=== PATIENT | male | born 1940 ===

== ENCOUNTER → 2020-01-03 13:02 | Outpatient (BNVA) | payer MEDICARE, MEDICAID, SELFPAY | PROVIDERS: PCP Internal Medicine; Referring Provider Internal Medicine; Visit Provider Family Medicine Adult Medicine | DX: M47.816 Spondylosis without myelopathy or radiculopathy, lumbar region (principal); Z87.81 Personal history of (healed) traumatic fracture; Z79.891 Long term (current) use of opiate analgesic; I82.503 Chronic embolism and thrombosis of unspecified deep veins of lower extremity, bilateral; Z51.81 Encounter for therapeutic drug level monitoring; Z79.01 Long term (current) use of anticoagulants | CPT/HCPCS: 85610; 99211; 99212 ==

== ENCOUNTER → 2020-01-31 13:04 | Outpatient (BNVA) | payer MEDICARE, MEDICAID, SELFPAY | PROVIDERS: PCP Internal Medicine; Referring Provider Internal Medicine; Visit Provider Internal Medicine | DX: I82.503 Chronic embolism and thrombosis of unspecified deep veins of lower extremity, bilateral (principal); Z51.81 Encounter for therapeutic drug level monitoring; Z79.01 Long term (current) use of anticoagulants | CPT/HCPCS: 85610; 99211 ==

== ENCOUNTER → 2020-02-21 10:29 | Outpatient (BNVA) | payer MEDICARE, MEDICAID, SELFPAY | PROVIDERS: PCP Internal Medicine; Visit Provider Internal Medicine | DX: J44.9 Chronic obstructive pulmonary disease, unspecified (principal) | CPT/HCPCS: 99212 ==

== ENCOUNTER → 2020-02-28 12:52 | Outpatient (BNVA) | payer MEDICARE, MEDICAID, SELFPAY | PROVIDERS: PCP Internal Medicine; Visit Provider Family Medicine Adult Medicine | DX: M47.816 Spondylosis without myelopathy or radiculopathy, lumbar region (principal); Z79.891 Long term (current) use of opiate analgesic; I82.503 Chronic embolism and thrombosis of unspecified deep veins of lower extremity, bilateral; Z51.81 Encounter for therapeutic drug level monitoring; Z79.01 Long term (current) use of anticoagulants | CPT/HCPCS: 85610; 99211; 99212 ==

== ENCOUNTER → 2020-03-26 08:38 | Outpatient (BNVA) | payer MEDICARE, MEDICAID, SELFPAY | PROVIDERS: PCP Internal Medicine; Visit Provider Nurse Practitioner Gerontology | DX: Z76.89 Persons encountering health services in other specified circumstances (principal) | CPT/HCPCS: Q3014 ==

== ENCOUNTER 2020-03-27 10:37 | Outpatient (REF) | payer MEDICARE, MEDICAID, SELFPAY ==
[2020-03-27 11:36] LABS: Estimated Average Glucose 123 mg/dL; Hemoglobin A1c % 5.9 %
[2020-03-27 12:17] LABS: Alanine Aminotransferase 12 U/L (0-40); Albumin Level 4.6 g/dL (3.5-5.0); Alkaline Phosphatase 67 U/L (39-117); Anion Gap 13 (12-20); Aspartate Amino Transferase 14 U/L (5-37); Bilirubin Total 0.7 mg/dL (0.0-1.0); Blood Urea Nitrogen 18 mg/dL (9-16); Calcium 9.6 mg/dL (8.4-10.2); Carbon Dioxide 28 mmol/L (22-29); Chloride 104 mmol/L (96-108); Cholesterol 147 mg/dL; Estimated Glomerular Filt Rate > 60; Glucose Fasting 104 mg/dL (60-99); HDL Cholesterol 64 mg/dL; LDL Cholesterol Calculated 70 mg/dl; Potassium 4.9 mmol/l (3.3-5.1); Sodium 140 mmol/L (135-145); Triglycerides 66 mg/dL
[2020-03-27 12:26] LABS: Creatinine Urine 101.85 mg/dL; Microalbum/Creatinine Ratio Ur 40.2 ug/mg cr
== END 2020-03-27 10:38 | disposition home or self-care (01) ==
LOC: HO.LAB 10:37
PROVIDERS: PCP Internal Medicine; Visit Provider Nurse Practitioner Gerontology
DX: Z79.01 Long term (current) use of anticoagulants (principal)
CPT/HCPCS: 36415; 80053; 80061; 82043; 83036; 85610; 99211

== ENCOUNTER → 2020-04-17 13:00 | Outpatient (BNVA) | payer MEDICARE, MEDICAID, SELFPAY | PROVIDERS: PCP Internal Medicine; Visit Provider Internal Medicine | DX: I82.503 Chronic embolism and thrombosis of unspecified deep veins of lower extremity, bilateral (principal); Z51.81 Encounter for therapeutic drug level monitoring; Z79.01 Long term (current) use of anticoagulants | CPT/HCPCS: 85610; 99211 ==

== ENCOUNTER → 2020-04-19 14:19 | Outpatient (BNVA) | payer MEDICARE, MEDICAID, SELFPAY | PROVIDERS: PCP Internal Medicine; Visit Provider Family Medicine Adult Medicine | DX: M47.816 Spondylosis without myelopathy or radiculopathy, lumbar region (principal) | CPT/HCPCS: 99212 ==

== ENCOUNTER 2020-05-11 13:50 | Outpatient (REF) | payer MEDICARE, MEDICAID, SELFPAY | END 2020-05-11 13:51 | disposition home or self-care (01) | LOC: HO.LAB 13:50 | PROVIDERS: Visit Provider Internal Medicine | DX: Z20.822 Contact with and (suspected) exposure to COVID-19 (principal) | CPT/HCPCS: 36415; C9803; U0003; U0005 ==

== ENCOUNTER → 2020-05-15 13:02 | Outpatient (BNVA) | payer MEDICARE, MEDICAID, SELFPAY | PROVIDERS: PCP Internal Medicine; Visit Provider Internal Medicine | DX: I82.503 Chronic embolism and thrombosis of unspecified deep veins of lower extremity, bilateral (principal); Z51.81 Encounter for therapeutic drug level monitoring; Z79.01 Long term (current) use of anticoagulants | CPT/HCPCS: 85610; 99211 ==

== ENCOUNTER → 2020-05-17 14:56 | Outpatient (BNVA) | payer MEDICARE, MEDICAID, SELFPAY | PROVIDERS: PCP Internal Medicine; Visit Provider Family Medicine Adult Medicine | DX: M47.816 Spondylosis without myelopathy or radiculopathy, lumbar region (principal); Z79.899 Other long term (current) drug therapy | CPT/HCPCS: 99212 ==

== ENCOUNTER → 2020-06-05 13:10 | Outpatient (BNVA) | payer MEDICARE, MEDICAID, SELFPAY | PROVIDERS: PCP Internal Medicine; Visit Provider Internal Medicine | DX: I82.503 Chronic embolism and thrombosis of unspecified deep veins of lower extremity, bilateral (principal); Z51.81 Encounter for therapeutic drug level monitoring; Z79.01 Long term (current) use of anticoagulants | CPT/HCPCS: 85610; 99211 ==

== ENCOUNTER → 2020-06-14 15:42 | Outpatient (BNVA) | payer MEDICARE, SELFPAY | PROVIDERS: PCP Internal Medicine; Visit Provider Family Medicine Adult Medicine | DX: M47.816 Spondylosis without myelopathy or radiculopathy, lumbar region (principal) | CPT/HCPCS: 99212 ==

== ENCOUNTER 2020-06-15 09:21 | Outpatient (REF) | payer MEDICARE, SELFPAY ==
[2020-06-15 10:36] LABS: Alanine Aminotransferase 13 U/L (0-40); Aspartate Amino Transferase 17 U/L (5-37); Cholesterol 117 mg/dL; HDL Cholesterol 56 mg/dL; LDL Cholesterol Calculated 52 mg/dl; Triglycerides 47 mg/dL
== END 2020-06-15 09:22 | disposition home or self-care (01) ==
LOC: HO.LAB 09:21
PROVIDERS: Absent Provider Internal Medicine; PCP Internal Medicine; Visit Provider Internal Medicine Cardiovascular Disease
DX: I73.9 Peripheral vascular disease, unspecified (principal)
CPT/HCPCS: 36415; 80061; 84450; 84460

== ENCOUNTER → 2020-07-03 13:22 | Outpatient (BNVA) | payer MEDICARE, SELFPAY | PROVIDERS: PCP Internal Medicine; Visit Provider Internal Medicine | DX: I82.503 Chronic embolism and thrombosis of unspecified deep veins of lower extremity, bilateral (principal); Z51.81 Encounter for therapeutic drug level monitoring; Z79.01 Long term (current) use of anticoagulants | CPT/HCPCS: 85610; 99211 ==

== ENCOUNTER 2020-07-12 11:09 | Outpatient (REF) | payer MEDICARE, MEDICAID, SELFPAY ==
--- NOTE | ~2020-07-12 | XR_ITS ---
EXAMINATION: XR CHEST CLINICAL INFORMATION: Pneumonia. COMPARISON: Chest 06/22/2019 TECHNIQUE: 2 views of the chest were obtained. FINDINGS: The lungs are well-inflated without any acute consolidation. There is minimal prominence of interstitial pattern in both lung bases likely scarring or atelectasis. Previously visualized peripheral airspace consolidations have improved. The heart size and vascularity is normal. There is mild spondylosis dorsal spine. No lytic process seen. XR/XR chest 2V IMPRESSION: Improved bilateral peripheral airspace opacities from 06/22/2019. No new findings. Likely minimal scarring or atelectasis in lung bases.
== END 2020-07-12 11:10 | disposition home or self-care (01) ==
LOC: HO.XRAY 11:09
PROVIDERS: PCP Internal Medicine; Visit Provider Internal Medicine
DX: J18.9 Pneumonia, unspecified organism (principal); E11.65 Type 2 diabetes mellitus with hyperglycemia; E78.00 Pure hypercholesterolemia, unspecified
CPT/HCPCS: 71046; Q3014

== ENCOUNTER → 2020-07-16 11:42 | Outpatient (BNVA) | payer MEDICARE, SELFPAY | PROVIDERS: PCP Internal Medicine; Visit Provider Internal Medicine | DX: I82.503 Chronic embolism and thrombosis of unspecified deep veins of lower extremity, bilateral (principal); Z51.81 Encounter for therapeutic drug level monitoring; Z79.01 Long term (current) use of anticoagulants | CPT/HCPCS: 85610; 99211 ==

== ENCOUNTER → 2020-07-17 14:40 | Outpatient (BNVA) | payer MEDICARE, SELFPAY | PROVIDERS: PCP Internal Medicine; Visit Provider Family Medicine Adult Medicine | DX: M47.816 Spondylosis without myelopathy or radiculopathy, lumbar region (principal) | CPT/HCPCS: Q3014 ==

== ENCOUNTER → 2020-07-30 13:05 | Outpatient (BNVA) | payer MEDICARE, SELFPAY | PROVIDERS: PCP Internal Medicine; Visit Provider Internal Medicine | DX: I82.503 Chronic embolism and thrombosis of unspecified deep veins of lower extremity, bilateral (principal); Z51.81 Encounter for therapeutic drug level monitoring; Z79.01 Long term (current) use of anticoagulants | CPT/HCPCS: 85610; 99211 ==

== ENCOUNTER → 2020-08-20 13:19 | Outpatient (BNVA) | payer MEDICARE, SELFPAY | PROVIDERS: PCP Internal Medicine; Visit Provider Internal Medicine | DX: I82.503 Chronic embolism and thrombosis of unspecified deep veins of lower extremity, bilateral (principal); Z51.81 Encounter for therapeutic drug level monitoring; Z79.01 Long term (current) use of anticoagulants | CPT/HCPCS: 85610; 99211 ==

== ENCOUNTER → 2020-08-27 14:06 | Outpatient (BNVA) | payer MEDICARE, SELFPAY | PROVIDERS: PCP Internal Medicine; Visit Provider Internal Medicine | DX: I82.503 Chronic embolism and thrombosis of unspecified deep veins of lower extremity, bilateral (principal); Z51.81 Encounter for therapeutic drug level monitoring; Z79.01 Long term (current) use of anticoagulants | CPT/HCPCS: 85610; 99211 ==

== ENCOUNTER → 2020-08-28 13:24 | Outpatient (BNVA) | payer MEDICARE, SELFPAY | PROVIDERS: PCP Internal Medicine; Visit Provider Family Medicine Adult Medicine | DX: M47.816 Spondylosis without myelopathy or radiculopathy, lumbar region (principal); I73.9 Peripheral vascular disease, unspecified | CPT/HCPCS: 99212 ==

== ENCOUNTER → 2020-09-11 13:33 | Outpatient (BNVA) | payer MEDICARE, SELFPAY | PROVIDERS: PCP Internal Medicine; Visit Provider Internal Medicine | DX: I82.503 Chronic embolism and thrombosis of unspecified deep veins of lower extremity, bilateral (principal); Z51.81 Encounter for therapeutic drug level monitoring; Z79.01 Long term (current) use of anticoagulants | CPT/HCPCS: 85610; 99211 ==

== ENCOUNTER → 2020-09-24 10:21 | Outpatient (BNVA) | payer MEDICARE, MEDICAID, SELFPAY | PROVIDERS: PCP Internal Medicine; Visit Provider Nurse Practitioner Gerontology | DX: E11.21 Type 2 diabetes mellitus with diabetic nephropathy (principal); E11.42 Type 2 diabetes mellitus with diabetic polyneuropathy; E78.5 Hyperlipidemia, unspecified; I10 Essential (primary) hypertension | CPT/HCPCS: 82947; 99212 ==

== ENCOUNTER → 2020-09-24 11:41 | Outpatient (BNV) | payer MEDICARE, MEDICAID, SELFPAY | PROVIDERS: PCP Internal Medicine; Visit Provider Internal Medicine Medical Oncology | DX: Z85.028 Personal history of other malignant neoplasm of stomach (principal); Z86.718 Personal history of other venous thrombosis and embolism; Z79.01 Long term (current) use of anticoagulants | CPT/HCPCS: 99213; 99214 ==

== ENCOUNTER → 2020-09-26 15:14 | Outpatient (BNVA) | payer MEDICARE, MEDICAID, SELFPAY | PROVIDERS: PCP Internal Medicine; Visit Provider Internal Medicine | DX: J43.9 Emphysema, unspecified (principal) | CPT/HCPCS: 99212 ==

== ENCOUNTER 2020-09-27 10:30 | Outpatient (REF) | payer MEDICARE, MEDICAID, SELFPAY | END 2020-09-27 10:31 | disposition home or self-care (01) | LOC: HO.LAB 10:30 | PROVIDERS: PCP Internal Medicine; Visit Provider Family Medicine Adult Medicine | DX: G89.4 Chronic pain syndrome (principal); M47.816 Spondylosis without myelopathy or radiculopathy, lumbar region; I73.9 Peripheral vascular disease, unspecified; I82.409 Acute embolism and thrombosis of unspecified deep veins of unspecified lower extremity; E11.65 Type 2 diabetes mellitus with hyperglycemia; E11.42 Type 2 diabetes mellitus with diabetic polyneuropathy; E11.21 Type 2 diabetes mellitus with diabetic nephropathy; Z89.422 Acquired absence of other left toe(s); Z90.3 Acquired absence of stomach [part of]; Z79.01 Long term (current) use of anticoagulants; Z79.84 Long term (current) use of oral hypoglycemic drugs; Z79.899 Other long term (current) drug therapy | CPT/HCPCS: 99212 ==

== ENCOUNTER → 2020-10-02 13:13 | Outpatient (BNVA) | payer MEDICARE, MEDICAID, SELFPAY | PROVIDERS: PCP Internal Medicine; Visit Provider Internal Medicine | DX: I82.503 Chronic embolism and thrombosis of unspecified deep veins of lower extremity, bilateral (principal); Z51.81 Encounter for therapeutic drug level monitoring; Z79.01 Long term (current) use of anticoagulants | CPT/HCPCS: 85610; 99211 ==

== ENCOUNTER → 2020-10-09 13:40 | Outpatient (BNVA) | payer MEDICARE, MEDICAID, SELFPAY | PROVIDERS: PCP Internal Medicine; Visit Provider Internal Medicine | DX: I82.503 Chronic embolism and thrombosis of unspecified deep veins of lower extremity, bilateral (principal); Z51.81 Encounter for therapeutic drug level monitoring; Z79.01 Long term (current) use of anticoagulants | CPT/HCPCS: 85610; 99211 ==

== ENCOUNTER → 2020-10-12 14:19 | Outpatient (BNVA) | payer MEDICARE, MEDICAID, SELFPAY | PROVIDERS: PCP Internal Medicine; Visit Provider Internal Medicine | DX: I82.503 Chronic embolism and thrombosis of unspecified deep veins of lower extremity, bilateral (principal); Z51.81 Encounter for therapeutic drug level monitoring; Z79.01 Long term (current) use of anticoagulants | CPT/HCPCS: 85610; 99211 ==

== ENCOUNTER → 2020-10-18 13:58 | Outpatient (BNVA) | payer MEDICARE, MEDICAID, SELFPAY | PROVIDERS: PCP Internal Medicine; Visit Provider Family Medicine Adult Medicine | DX: M47.816 Spondylosis without myelopathy or radiculopathy, lumbar region (principal); I73.9 Peripheral vascular disease, unspecified | CPT/HCPCS: 99212 ==

== ENCOUNTER → 2020-10-26 13:07 | Outpatient (BNVA) | payer MEDICARE, MEDICAID, SELFPAY | PROVIDERS: PCP Internal Medicine; Visit Provider Internal Medicine | DX: I82.503 Chronic embolism and thrombosis of unspecified deep veins of lower extremity, bilateral (principal); Z51.81 Encounter for therapeutic drug level monitoring; Z79.01 Long term (current) use of anticoagulants | CPT/HCPCS: 85610; 99211 ==

== ENCOUNTER → 2020-11-15 13:20 | Outpatient (BNVA) | payer MEDICARE, MEDICAID, SELFPAY | PROVIDERS: PCP Internal Medicine; Visit Provider Internal Medicine | DX: I82.503 Chronic embolism and thrombosis of unspecified deep veins of lower extremity, bilateral (principal); M47.816 Spondylosis without myelopathy or radiculopathy, lumbar region; I73.9 Peripheral vascular disease, unspecified; Z79.899 Other long term (current) drug therapy; Z51.81 Encounter for therapeutic drug level monitoring; Z79.01 Long term (current) use of anticoagulants | CPT/HCPCS: 85610; 99211; 99212 ==

== ENCOUNTER → 2020-12-13 13:45 | Outpatient (BNVA) | payer MEDICARE, MEDICAID, SELFPAY | PROVIDERS: PCP Internal Medicine; Visit Provider Internal Medicine | DX: I82.509 Chronic embolism and thrombosis of unspecified deep veins of unspecified lower extremity (principal); M47.816 Spondylosis without myelopathy or radiculopathy, lumbar region; I73.9 Peripheral vascular disease, unspecified; Z79.891 Long term (current) use of opiate analgesic; Z87.891 Personal history of nicotine dependence; Z51.81 Encounter for therapeutic drug level monitoring; Z79.01 Long term (current) use of anticoagulants | CPT/HCPCS: 85610; 99211; Q3014 ==

== ENCOUNTER → 2021-01-08 13:14 | Outpatient (BNVA) | payer MEDICARE, MEDICAID, SELFPAY | PROVIDERS: PCP Internal Medicine; Visit Provider Family Medicine Adult Medicine | DX: Z51.81 Encounter for therapeutic drug level monitoring (principal); M47.816 Spondylosis without myelopathy or radiculopathy, lumbar region; I73.9 Peripheral vascular disease, unspecified | CPT/HCPCS: 99212 ==

== ENCOUNTER → 2021-01-10 13:03 | Outpatient (BNVA) | payer MEDICARE, MEDICAID, SELFPAY | PROVIDERS: PCP Internal Medicine; Visit Provider Internal Medicine | DX: I82.503 Chronic embolism and thrombosis of unspecified deep veins of lower extremity, bilateral (principal); Z51.81 Encounter for therapeutic drug level monitoring; Z79.01 Long term (current) use of anticoagulants | CPT/HCPCS: 85610; 99211 ==

== ENCOUNTER 2021-01-21 06:20 | Outpatient (REF) | payer MEDICARE, MEDICAID, SELFPAY ==
[2021-01-21 06:27] LABS: MANUAL DIFF FLAG NO
[2021-01-21 07:31] LABS: Estimated Average Glucose 120 mg/dL; Hemoglobin A1c % 5.8 %
[2021-01-21 07:35] LABS: Basophils Percent Auto 0.3 % (0-2); Eosinophils Absolute Auto 0.5 X10*3/uL (0.0-0.4); Eosinophils Percent Auto 6.8 % (0-4); Hemoglobin 10.9 g/dl (14.0-18.0); Imm Gran Abs Auto 0.01 X10*3/uL (0.00-0.03); Imm Gran Pct Auto 0.1 % (0.0-0.4); Immature Retic Fraction 8.7 % (2.3-13.4); Lymphocytes Absolute Auto 1.7 X10*3/uL (1.2-4.9); Lymphocytes Percent Auto 23.9 % (20-40); Mean Corpuscular HGB Conc 31.1 g/dl (31.0-36.0); Mean Corpuscular Hemoglobin 28.5 pg (27.0-33.0); Mean Corpuscular Volume 91.6 fL (80.0-98.0); Mean Platelet Volume 10.8 fL (9.4-12.4); Monocytes Absolute Auto 0.6 X10*3/uL (0.1-1.2); Monocytes Percent Auto 9.2 % (2-11); Neutrophils Absolute Auto 4.2 x10*3/uL (2.0-8.3); Neutrophils Percent Auto 59.7 % (45-73); Platelet Count 216 X10*3/uL (160-400); Red Blood Count 3.82 X10*6/uL (4.60-5.80); Red Cell Distribution Width 14.6 % (11.0-16.0); Retic HGB Equivalent 30.3 pg (30.0-35.0); Reticulocyte Percent 0.8 % (0.5-1.8); Reticulocytes Absolute 0.029 X10*6/uL (0.026-0.095)
[2021-01-21 08:01] LABS: Alanine Aminotransferase 13 U/L (0-40); Albumin Level 3.9 g/dL (3.5-5.0); Alkaline Phosphatase 73 U/L (39-117); Anion Gap 11 (12-20); Aspartate Amino Transferase 18 U/L (5-37); Bilirubin Total 0.4 mg/dL (0.0-1.0); Blood Urea Nitrogen 13 mg/dL (9-16); Calcium 8.9 mg/dL (8.4-10.2); Carbon Dioxide 27 mmol/L (22-29); Chloride 107 mmol/L (96-108); Cholesterol 103 mg/dL; Estimated Glomerular Filt Rate > 60; Glucose Random 100 mg/dL (60-115); HDL Cholesterol 44 mg/dL; Iron 48 mcg/dL (45-160); LDL Cholesterol Calculated 50 mg/dl; Percent Iron Saturation 27 % (15-50); Potassium 4.9 mmol/L (3.3-5.1); Sodium 140 mmol/L (135-145); Total Iron Binding Capacity 178 mcg/dL (228-428); Total Protein 6.2 g/dL (6.5-8.0); Triglycerides 49 mg/dL; Unsaturated Iron Binding 130 ug/dL
[2021-01-21 08:02] LABS: B Type Natriuretic Peptide 88 pg/mL (<100)
[2021-01-21 08:23] LABS: Ferritin 450 ng/mL (20-250); Free T4 (Free Thyroxine) 0.92 ng/dL (0.71-1.85); Thyroid Stimulating Hormone 1.74 uIU/mL (0.32-4.0)
[2021-01-21 10:24] LABS: Folate 17.7 ng/mL (> or = 4.0); Vitamin B12 792 pg/mL (200-900)
== END 2021-01-21 06:21 | disposition home or self-care (01) ==
LOC: HO.LAB 06:20
PROVIDERS: PCP Internal Medicine; Visit Provider Internal Medicine
DX: E11.65 Type 2 diabetes mellitus with hyperglycemia (principal); E78.00 Pure hypercholesterolemia, unspecified; D64.9 Anemia, unspecified
CPT/HCPCS: 36415; 80053; 80061; 82607; 82728; 82746; 83036; 83540; 83880; 84439; 84443; 85025; 85045

== ENCOUNTER 2021-02-05 09:28 | Outpatient (REF) | payer MEDICARE, MEDICAID, SELFPAY ==
[2021-02-05 12:13] LABS: Immature Retic Fraction 8.3 % (2.3-13.4); Retic HGB Equivalent 31.3 pg (30.0-35.0); Reticulocyte Percent 0.9 % (0.5-1.8); Reticulocytes Absolute 0.037 X10*6/uL (0.026-0.095)
[2021-02-05 12:40] LABS: Alanine Aminotransferase 13 U/L (0-40); Albumin Level 4.3 g/dL (3.5-5.0); Alkaline Phosphatase 84 U/L (39-117); Anion Gap 11 (12-20); Aspartate Amino Transferase 15 U/L (5-37); Bilirubin Total 0.6 mg/dL (0.0-1.0); Blood Urea Nitrogen 13 mg/dL (9-16); Calcium 9.7 mg/dL (8.4-10.2); Carbon Dioxide 26 mmol/L (22-29); Chloride 108 mmol/L (96-108); Estimated Glomerular Filt Rate > 60; Glucose Random 122 mg/dL (60-115); Potassium 4.9 mmol/L (3.3-5.1); Sodium 140 mmol/L (135-145); Total Protein 6.8 g/dL (6.5-8.0)
[2021-02-05 12:41] LABS: Iron 74 mcg/dL (45-160); Percent Iron Saturation 35 % (15-50); Total Iron Binding Capacity 214 mcg/dL (228-428); Unsaturated Iron Binding 140 ug/dL
[2021-02-05 13:12] LABS: Ferritin 416 ng/mL (20-250)
[2021-02-05 13:14] LABS: Folate 19.6 ng/mL (> or = 4.0); Vitamin B12 777 pg/mL (200-900)
== END 2021-02-05 09:29 | disposition home or self-care (01) ==
LOC: HO.LAB 09:28
PROVIDERS: PCP Internal Medicine; Visit Provider Internal Medicine Cardiovascular Disease
DX: E11.65 Type 2 diabetes mellitus with hyperglycemia (principal); D64.9 Anemia, unspecified; I10 Essential (primary) hypertension
CPT/HCPCS: 36415; 80053; 82607; 82728; 82746; 83540; 85045

== ENCOUNTER → 2021-02-07 14:40 | Outpatient (BNVA) | payer MEDICARE, MEDICAID, SELFPAY | PROVIDERS: PCP Internal Medicine; Visit Provider Internal Medicine | DX: M47.816 Spondylosis without myelopathy or radiculopathy, lumbar region (principal); I82.503 Chronic embolism and thrombosis of unspecified deep veins of lower extremity, bilateral; I73.9 Peripheral vascular disease, unspecified; Z79.891 Long term (current) use of opiate analgesic; Z51.81 Encounter for therapeutic drug level monitoring; Z79.01 Long term (current) use of anticoagulants | CPT/HCPCS: 85610; 99211; 99212 ==

== ENCOUNTER → 2021-03-07 09:47 | Outpatient (BNVA) | payer MEDICAID, MEDICARE, SELFPAY | PROVIDERS: PCP Internal Medicine; Visit Provider Anesthesiology ==

== ENCOUNTER → 2021-03-14 13:12 | Outpatient (BNVA) | payer MEDICARE, MEDICAID, SELFPAY | PROVIDERS: PCP Internal Medicine; Visit Provider Internal Medicine | DX: I82.503 Chronic embolism and thrombosis of unspecified deep veins of lower extremity, bilateral (principal); Z51.81 Encounter for therapeutic drug level monitoring; Z79.01 Long term (current) use of anticoagulants | CPT/HCPCS: 85610; 99211 ==

== ENCOUNTER → 2021-03-20 14:46 | Outpatient (BNVA) | payer MEDICARE, MEDICAID, SELFPAY | PROVIDERS: PCP Internal Medicine; Visit Provider Internal Medicine | DX: J43.9 Emphysema, unspecified (principal); Z79.899 Other long term (current) drug therapy | CPT/HCPCS: 99212 ==

== ENCOUNTER → 2021-04-03 14:50 | Outpatient (BNVA) | payer MEDICARE, MEDICAID, SELFPAY | PROVIDERS: PCP Internal Medicine; Visit Provider Anesthesiology | DX: Z51.81 Encounter for therapeutic drug level monitoring (principal); F11.20 Opioid dependence, uncomplicated; M96.1 Postlaminectomy syndrome, not elsewhere classified; G89.4 Chronic pain syndrome; I73.9 Peripheral vascular disease, unspecified; E11.21 Type 2 diabetes mellitus with diabetic nephropathy; E11.42 Type 2 diabetes mellitus with diabetic polyneuropathy | CPT/HCPCS: 99212 ==

== ENCOUNTER → 2021-04-04 13:15 | Outpatient (BNVA) | payer MEDICARE, MEDICAID, SELFPAY | PROVIDERS: PCP Internal Medicine; Visit Provider Internal Medicine | DX: I82.503 Chronic embolism and thrombosis of unspecified deep veins of lower extremity, bilateral (principal); Z51.81 Encounter for therapeutic drug level monitoring; Z79.01 Long term (current) use of anticoagulants | CPT/HCPCS: 85610; 99211 ==

== ENCOUNTER → 2021-04-18 13:19 | Outpatient (BNVA) | payer MEDICARE, MEDICAID, SELFPAY | PROVIDERS: PCP Internal Medicine; Visit Provider Internal Medicine | DX: I82.503 Chronic embolism and thrombosis of unspecified deep veins of lower extremity, bilateral (principal); Z51.81 Encounter for therapeutic drug level monitoring; Z79.01 Long term (current) use of anticoagulants | CPT/HCPCS: 85610; 99211 ==

== ENCOUNTER → 2021-05-01 10:37 | Outpatient (BNVA) | payer MEDICARE, MEDICAID, SELFPAY | PROVIDERS: PCP Internal Medicine; Visit Provider Anesthesiology | DX: Z51.81 Encounter for therapeutic drug level monitoring (principal); F11.20 Opioid dependence, uncomplicated; M96.1 Postlaminectomy syndrome, not elsewhere classified; G89.4 Chronic pain syndrome; E11.21 Type 2 diabetes mellitus with diabetic nephropathy; E11.42 Type 2 diabetes mellitus with diabetic polyneuropathy; I73.9 Peripheral vascular disease, unspecified | CPT/HCPCS: 99212 ==

== ENCOUNTER → 2021-05-09 14:30 | Outpatient (BNVA) | payer MEDICARE, MEDICAID, SELFPAY | PROVIDERS: PCP Internal Medicine; Visit Provider Internal Medicine | DX: I82.503 Chronic embolism and thrombosis of unspecified deep veins of lower extremity, bilateral (principal); Z51.81 Encounter for therapeutic drug level monitoring; Z79.01 Long term (current) use of anticoagulants | CPT/HCPCS: 85610; 99211 ==

== ENCOUNTER → 2021-05-29 12:53 | Outpatient (BNVA) | payer MEDICARE, MEDICAID, SELFPAY | PROVIDERS: PCP Internal Medicine; Visit Provider Anesthesiology | DX: Z51.81 Encounter for therapeutic drug level monitoring (principal); F11.20 Opioid dependence, uncomplicated | CPT/HCPCS: 99211 ==

== ENCOUNTER → 2021-05-31 13:04 | Outpatient (BNVA) | payer MEDICARE, MEDICAID, SELFPAY | PROVIDERS: PCP Internal Medicine; Visit Provider Internal Medicine | DX: I82.503 Chronic embolism and thrombosis of unspecified deep veins of lower extremity, bilateral (principal); Z51.81 Encounter for therapeutic drug level monitoring; Z79.01 Long term (current) use of anticoagulants | CPT/HCPCS: 85610; 99211 ==

== ENCOUNTER 2021-06-10 10:50 | Emergency (ER) | payer MEDICARE, MEDICAID, SELFPAY ==
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
[2021-06-10 11:00] VITALS: BP 130/70; PULSE 101; O2SAT 94
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
[2021-06-10 11:05] VITALS: BP 125/69; PULSE 83; RESP 18; TEMP 37.1; O2SAT 97; BMI 24.3
[2021-06-10 12:32] VITALS: BP 123/68; PULSE 81; RESP 18; O2SAT 96
[2021-06-10 12:33] LABS: MANUAL DIFF FLAG NO
[2021-06-10 12:41] LABS: Basophils Percent Auto 0.2 % (0-2); Eosinophils Absolute Auto 0.2 X10*3/uL (0.0-0.4); Eosinophils Percent Auto 2.3 % (0-4); Hematocrit 34.7 % (42.0-52.0); Hemoglobin 10.8 g/dl (14.0-18.0); Imm Gran Abs Auto 0.03 X10*3/uL (0.00-0.03); Imm Gran Pct Auto 0.3 % (0.0-0.4); Lymphocytes Absolute Auto 0.7 X10*3/uL (1.2-4.9); Lymphocytes Percent Auto 7.6 % (20-40); Mean Corpuscular HGB Conc 31.1 g/dl (31.0-36.0); Mean Corpuscular Hemoglobin 28.2 pg (27.0-33.0); Mean Corpuscular Volume 90.6 fL (80.0-98.0); Mean Platelet Volume 11.5 fL (9.4-12.4); Monocytes Absolute Auto 0.9 X10*3/uL (0.1-1.2); Neutrophils Absolute Auto 7.3 x10*3/uL (2.0-8.3); Neutrophils Percent Auto 79.6 % (45-73); Platelet Count 146 X10*3/uL (160-400); Red Blood Count 3.83 X10*6/uL (4.60-5.80); Red Cell Distribution Width 14.6 % (11.0-16.0); White Blood Count 9.1 X10*3/uL (4.8-10.8)
[2021-06-10 12:49] LABS: INTERNATIONAL NORM RATIO 4.9 (0.9-1.1); Prothrombin Time 58.2 SEC (9.9-13.0)
[2021-06-10 12:56] LABS: Anion Gap 10 (12-20); Blood Urea Nitrogen 16 mg/dL (9-16); Calcium 8.9 mg/dL (8.4-10.2); Carbon Dioxide 25 mmol/L (22-29); Chloride 110 mmol/L (96-108); Creatinine Clr Calc Pharmacy 52.5; Estimated Glomerular Filt Rate > 60; Glucose Random 142 mg/dL (60-115); Potassium 4.3 mmol/L (3.3-5.1); Sodium 141 mmol/L (135-145)
--- NOTE | 2021-06-10 13:56 | PC.NURSE ---
steady gait w walker and the immobilizer, nad
== END 2021-06-10 13:56 | disposition home or self-care (01) ==
PROVIDERS: Emergency Provider Emergency Medicine; PCP Internal Medicine
DX: M25.061 Hemarthrosis, right knee (principal); M25.461 Effusion, right knee; M25.561 Pain in right knee; S90.31XA Contusion of right foot, initial encounter; V03.00XA Pedestrian on foot injured in collision with car, pick-up truck or van in nontraffic accident, initial encounter; E11.9 Type 2 diabetes mellitus without complications; Y93.01 Activity, walking, marching and hiking; Y92.481 Parking lot as the place of occurrence of the external cause; Y99.9 Unspecified external cause status; Z86.718 Personal history of other venous thrombosis and embolism; Z79.01 Long term (current) use of anticoagulants; Z79.4 Long term (current) use of insulin
CPT/HCPCS: 36415; 72100; 73562; 73620; 80048; 85025; 85610; 99283; 99284; Q3014

== ENCOUNTER → 2021-06-13 11:43 | Outpatient (BNVA) | payer MEDICARE, MEDICAID, SELFPAY | PROVIDERS: PCP Internal Medicine; Visit Provider Internal Medicine | DX: I82.503 Chronic embolism and thrombosis of unspecified deep veins of lower extremity, bilateral (principal); Z51.81 Encounter for therapeutic drug level monitoring; Z79.01 Long term (current) use of anticoagulants | CPT/HCPCS: 85610; 99212 ==

== ENCOUNTER → 2021-06-17 13:57 | Outpatient (BNVA) | payer MEDICARE, MEDICAID, SELFPAY | PROVIDERS: PCP Internal Medicine; Visit Provider Internal Medicine | DX: I82.503 Chronic embolism and thrombosis of unspecified deep veins of lower extremity, bilateral (principal); Z79.01 Long term (current) use of anticoagulants; Z51.81 Encounter for therapeutic drug level monitoring | CPT/HCPCS: 85610; 99211 ==

== ENCOUNTER → 2021-06-21 13:54 | Outpatient (BNVA) | payer MEDICARE, MEDICAID, SELFPAY | PROVIDERS: PCP Internal Medicine; Visit Provider Internal Medicine | DX: I82.503 Chronic embolism and thrombosis of unspecified deep veins of lower extremity, bilateral (principal); Z79.01 Long term (current) use of anticoagulants; Z51.81 Encounter for therapeutic drug level monitoring | CPT/HCPCS: 85610; 99211 ==

== ENCOUNTER → 2021-06-28 13:46 | Outpatient (BNVA) | payer MEDICARE, MEDICAID, SELFPAY | PROVIDERS: PCP Internal Medicine; Visit Provider Internal Medicine | DX: I82.503 Chronic embolism and thrombosis of unspecified deep veins of lower extremity, bilateral (principal); Z79.01 Long term (current) use of anticoagulants; Z51.81 Encounter for therapeutic drug level monitoring | CPT/HCPCS: 85610; 99211 ==

== ENCOUNTER → 2021-07-01 12:49 | Outpatient (BNVA) | payer MEDICARE, MEDICAID, SELFPAY | PROVIDERS: PCP Internal Medicine; Visit Provider Anesthesiology | DX: Z51.81 Encounter for therapeutic drug level monitoring (principal); F11.20 Opioid dependence, uncomplicated | CPT/HCPCS: 99211 ==

== ENCOUNTER → 2021-07-12 13:01 | Outpatient (BNVA) | payer MEDICARE, MEDICAID, SELFPAY | PROVIDERS: PCP Internal Medicine; Visit Provider Internal Medicine | DX: I82.503 Chronic embolism and thrombosis of unspecified deep veins of lower extremity, bilateral (principal); Z79.01 Long term (current) use of anticoagulants; Z51.81 Encounter for therapeutic drug level monitoring | CPT/HCPCS: 85610; 99211 ==

== ENCOUNTER → 2021-07-29 13:09 | Outpatient (BNVA) | payer MEDICARE, MEDICAID, SELFPAY | PROVIDERS: PCP Internal Medicine; Visit Provider Anesthesiology | DX: Z13.89 Encounter for screening for other disorder (principal) ==

== ENCOUNTER → 2021-08-02 13:05 | Outpatient (BNVA) | payer MEDICARE, MEDICAID, SELFPAY | PROVIDERS: PCP Internal Medicine; Visit Provider Internal Medicine | DX: I82.403 Acute embolism and thrombosis of unspecified deep veins of lower extremity, bilateral (principal); Z79.01 Long term (current) use of anticoagulants; Z51.81 Encounter for therapeutic drug level monitoring | CPT/HCPCS: 85610; 99211 ==

== ENCOUNTER → 2021-08-12 13:03 | Outpatient (BNVA) | payer MEDICARE, MEDICAID, SELFPAY | PROVIDERS: PCP Internal Medicine; Visit Provider Internal Medicine | DX: I82.503 Chronic embolism and thrombosis of unspecified deep veins of lower extremity, bilateral (principal); Z79.01 Long term (current) use of anticoagulants; Z51.81 Encounter for therapeutic drug level monitoring | CPT/HCPCS: 85610; 99211 ==

== ENCOUNTER → 2021-08-26 13:26 | Outpatient (BNVA) | payer MEDICARE, MEDICAID, SELFPAY | PROVIDERS: PCP Internal Medicine; Visit Provider Anesthesiology | DX: Z79.891 Long term (current) use of opiate analgesic (principal) | CPT/HCPCS: 99211 ==

== ENCOUNTER → 2021-09-02 13:22 | Outpatient (BNVA) | payer MEDICARE, MEDICAID, SELFPAY | PROVIDERS: PCP Internal Medicine; Visit Provider Internal Medicine | DX: I82.503 Chronic embolism and thrombosis of unspecified deep veins of lower extremity, bilateral (principal); Z79.01 Long term (current) use of anticoagulants; Z51.81 Encounter for therapeutic drug level monitoring | CPT/HCPCS: 85610; 99211 ==

== ENCOUNTER → 2021-09-16 10:51 | Outpatient (BNVA) | payer MEDICARE, MEDICAID, SELFPAY | PROVIDERS: PCP Internal Medicine; Visit Provider Internal Medicine | DX: J43.9 Emphysema, unspecified (principal); Z79.899 Other long term (current) drug therapy | CPT/HCPCS: 99212 ==

== ENCOUNTER → 2021-09-23 13:37 | Outpatient (BNVA) | payer MEDICARE, MEDICAID, SELFPAY | PROVIDERS: PCP Internal Medicine; Visit Provider Internal Medicine | DX: M96.1 Postlaminectomy syndrome, not elsewhere classified (principal); G89.4 Chronic pain syndrome; E11.51 Type 2 diabetes mellitus with diabetic peripheral angiopathy without gangrene; E11.21 Type 2 diabetes mellitus with diabetic nephropathy; E11.42 Type 2 diabetes mellitus with diabetic polyneuropathy; I82.503 Chronic embolism and thrombosis of unspecified deep veins of lower extremity, bilateral; Z51.81 Encounter for therapeutic drug level monitoring; Z79.01 Long term (current) use of anticoagulants; Z79.891 Long term (current) use of opiate analgesic | CPT/HCPCS: 85610; 99211; 99212 ==

== ENCOUNTER 2021-10-02 12:44 | Emergency (ER) | payer MEDICARE, MEDICAID, SELFPAY ==
--- NOTE | ~2021-10-02 | XR_ITS ---
EXAMINATION: XR CHEST CLINICAL INFORMATION: Palpitations COMPARISON: July 12, 2020 and June 22, 2019 TECHNIQUE: PA view of the chest was obtained. FINDINGS: There is persistent elevation of the left hemidiaphragm. There is some hazy density seen at both lung bases which have been present previously and may be related to chronic interstitial disease. No confluent airspace disease is appreciated. Heart normal size. No evidence of pulmonary edema. No pneumothorax or pleural effusion. There is degenerative change of both shoulders with loss of space between the acromium and femoral heads. XR/XR chest 1V IMPRESSION: No significant acute parenchymal disease identified. Probable bibasilar chronic disease.
[2021-10-02 12:52] VITALS: PULSE 58; RESP 18; TEMP 36.7; O2SAT 97; BMI 24.7
--- NOTE | 2021-10-02 12:57 | ECG_ITS ---
Test Reason : FAST HEART RATE Blood Pressure : / mmHG Vent. Rate : 061 BPM Atrial Rate : 061 BPM P-R Int : 192 ms QRS Dur : 098 ms QT Int : 408 ms P-R-T Axes : 080 -41 008 degrees QTc Int : 410 ms Normal sinus rhythm with sinus arrhythmia Left axis deviation Minimal voltage criteria for LVH, may be normal variant ( R in aVL ) Abnormal ECG When compared with ECG of 28-JUN-2019 04:32, Premature atrial complexes are no longer Present Vent. rate has decreased BY 72 BPM T wave inversion now evident in Inferior leads Referred By: Generic ED Physician Electronically Signed By:TANYA DE
[2021-10-02 13:20] LABS: MANUAL DIFF FLAG NO
[2021-10-02 13:26] LABS: Basophils Percent Auto 0.3 % (0-2); Eosinophils Absolute Auto 0.4 X10*3/uL (0.0-0.4); Eosinophils Percent Auto 5.9 % (0-4); Hematocrit 32.8 % (42.0-52.0); Hemoglobin 10.4 g/dl (14.0-18.0); Imm Gran Abs Auto 0.02 X10*3/uL (0.00-0.03); Imm Gran Pct Auto 0.3 % (0.0-0.4); Lymphocytes Absolute Auto 1.4 X10*3/uL (1.2-4.9); Lymphocytes Percent Auto 20.3 % (20-40); Mean Corpuscular HGB Conc 31.7 g/dl (31.0-36.0); Mean Corpuscular Hemoglobin 28.7 pg (27.0-33.0); Mean Corpuscular Volume 90.4 fL (80.0-98.0); Mean Platelet Volume 11.1 fL (9.4-12.4); Monocytes Absolute Auto 0.6 X10*3/uL (0.1-1.2); Monocytes Percent Auto 9.3 % (2-11); Neutrophils Absolute Auto 4.3 x10*3/uL (2.0-8.3); Neutrophils Percent Auto 63.9 % (45-73); Platelet Count 138 X10*3/uL (160-400); Red Blood Count 3.63 X10*6/uL (4.60-5.80); Red Cell Distribution Width 15.2 % (11.0-16.0); White Blood Count 6.8 X10*3/uL (4.8-10.8)
[2021-10-02 13:44] LABS: Anion Gap 10 (12-20); Blood Urea Nitrogen 16 mg/dL (9-16); Calcium 8.9 mg/dL (8.4-10.2); Carbon Dioxide 23 mmol/L (22-29); Chloride 111 mmol/L (96-108); Estimated Glomerular Filt Rate > 60; Glucose Random 103 mg/dL (60-115); Potassium 4.3 mmol/L (3.3-5.1); Sodium 140 mmol/L (135-145)
[2021-10-02 13:51] LABS: Troponin-I High Sensitivity 9.9 ng/L (<3.5-35.0)
--- NOTE | 2021-10-02 18:57 | ED_ITS ---
HPI - Arrhythmia/Palpitations General Chief Complaint: Arrhythmia/Palpitations Stated Complaint: rapid heart beat Time Seen by Provider: 10/02/21 18:57 Source: patient Mode of arrival: ambulatory Limitations: no limitations History of Present Illness HPI narrative: Patient's history of peripheral vascular disease diabetes hyperlipidemia COPD came here as he had an episode of palpitations happen yesterday evening lasted for half an hour so no dizziness or chest pain at that time did not have similar palpitation in the past on arrival patient had EKG done which showed heart rate of 61 patient denies any shortness of breath Related Data Home Medications Medication Instructions Recorded Confirmed lancets 28 gauge #100 ea 01/03/20 09/02/21 ascorbic acid (vitamin C) 1,000 mg 1 g PO DAILY 01/27/20 09/23/21 tablet aspirin 81 mg tablet,delayed 81 mg PO DAILY 01/27/20 09/23/21 release (Adult Aspirin Regimen) cholecalciferol (vitamin D3) 25 25 mcg PO DAILY 01/27/20 09/23/21 mcg (1,000 unit) capsule ferrous sulfate 325 mg (65 mg 325 mg PO BID 01/27/20 09/23/21 iron) tablet (FeroSul) neomycin 3.5 mg/g-polymyxin B ophthalmic (eye) 01/10/21 09/23/21 10,000 unit/g-dexameth 0.1 % eye oint Previous Rx's Medication Instructions Recorded naloxone 4 mg/actuation nasal 4 mg intranasal Q2M 1 day #2 ea 05/17/20 spray (Narcan) blood sugar diagnostic (OneTouch #50 ea 07/19/20 Verio test strips) blood-glucose meter (OneTouch #1 ea 07/19/20 Verio Meter) lancets 30 gauge (OneTouch Delica #100 ea 07/19/20 Plus Lancet) Ventolin HFA 90 mcg/actuation 2 puff inhalation Q4-6H PRN for 08/13/20 aerosol inhaler (albuterol sulfate) wheezing #54 grams atorvastatin 40 mg tablet 40 mg PO DAILY #90 tabs 10/12/20 warfarin 5 mg tablet 5 mg PO DAILY #90 tabs 10/15/20 metformin 500 mg tablet 500 mg PO BID #180 tabs 10/18/20 lisinopril 20 mg tablet 20 mg PO DAILY #90 tabs 10/26/20 amlodipine 10 mg tablet 10 mg PO DAILY 90 days #90 tabs 11/02/20 cilostazol 100 mg tablet 100 mg PO BID #180 tabs 02/15/21 cyanocobalamin (vitamin B-12) 250 250 mcg PO DAILY #90 tabs 05/27/21 mcg tablet (Vitamin B-12) walker (Ultra-Light Rollator misc) #1 ea 06/11/21 warfarin 2.5 mg tablet 2.5 mg PO DAILY 1 week #7 tabs 06/17/21 Symbicort 160 mcg-4.5 2 puff PO BID #30.6 ea 06/26/21 mcg/actuation HFA aerosol inhaler (budesonide-formoterol) gabapentin 300 mg capsule 300 mg PO DAILY 90 days #90 caps 07/22/21 ipratropium 0.5 mg-albuterol 3 mg 3 ml inhalation Q6H #180 mL 07/22/21 (2.5 mg base)/3 mL nebulization soln oxycodone-acetaminophen 5 mg-325 1 tab PO Q8H PRN pain 30 days #90 09/23/21 mg tablet tabs Allergies Allergy/AdvReac Type Severity Reaction Status Date / Time No Known Allergies Allergy Mild NOT Verified 10/02/21 12:51 APPLICABLE Review of Systems Review of Systems: Yes all other systems are reviewed and are negative [facility] Past Medical History Medical History BPH (benign prostatic hyperplasia) Bronchiectasis Chronic pain syndrome Compression fracture of L1 lumbar vertebra Controlled type 2 diabetes mellitus with diabetic nephropathy, without long-term current use of insulin COPD (chronic obstructive pulmonary disease) COPD (chronic obstructive pulmonary disease) Diabetic polyneuropathy Gastric carcinoma History of gastric cancer Hyperlipidemia LDL goal <70 Joint pain Lumbar spondylosis Moderate aortic stenosis Peripheral vascular disease Peripheral vascular disease Pneumonia Postlaminectomy syndrome Recurrent deep vein thrombosis (DVT) Type 2 diabetes mellitus with diabetic polyneuropathy Type 2 diabetes mellitus with hyperglycemia Vitamin B12 deficiency Surgical History Amputation of toe of left foot History of colonoscopy History of gastrectomy Family History Family History Father Diabetes Mother Diabetes Social History Social History Household Members: None Household Members Other:: lives alone son checks by daily Housing: Apartment Alcohol intake: former Year quit: 1969 Patient Tobacco Use Status: Never used Tobacco e-Cigarette/Vaping Use: Never Used Second Hand Smoke Exposure: No Use of substances other than those prescribed or required for medical reasons: No Advance Directives: No Advance Directives Information Provided: No service: No Current occupational status: retired Cognitive needs: Yes (walker/power chair) Hearing needs: No Vision needs: Yes (reading) Physical Exam Vital Signs: Vital Signs: Last Vital Signs Temp 98.1 F 10/02/21 12:52 Pulse 64 10/02/21 19:08 Resp 16 10/02/21 19:08 BP 152/82 H 10/02/21 19:08 Pulse Ox 99 10/02/21 19:08 O2 Del Method 10/02/21 19:08 BMI result Body Mass Index 24.7 Appearance: Alert. Oriented X3. No acute distress. Eyes: No pallor or icterus ENT: Pharynx normal. Oral Mucosa moist Neck: Normal inspection. Neck supple. CVS: Normal heart rate and rhythm. Pulses normal. Respiratory: No respiratory distress. Equal air entry bilateral, no wheezing/rales/rhonchi Abdomen: Soft and nontender. Bowel sounds are present, no mass palpable, no CVA tenderness Skin: Skin warm and dry. Normal skin color. Normal skin turgor. Extremities: No lower extremity edema. No calf tenderness Neuro: Oriented X 3. No motor deficit. No sensory deficit.No cerebellar signs , cranial nerves II-XII intact MDM - Arrhythmia/Palpitations MDM Narrative Medical decision making narrative: 2100 Patient had an episode of palpitation yesterday without any his near syncope or chest pain workup is -2 sets of cardiac enzymes are negative during stay in the ER patient had only PACs in the monitor will advised patient to follow-up with per diem interpreter/PCP for Holter monitoring Differential Diagnosis Differential diagnosis: Likely palpitations, sinus tachycardia and artial fibrillation Lab Data Attestation: I reviewed the patient's lab results. Result diagrams: 10/02/21 13:07 10/02/21 13:07 Labs: Lab Results 10/02/21 10/02/21 10/02/21 Range/Units 13:07 13:07 13:07 WBC 6.8 (4.8-10.8) X10*3/uL RBC 3.63 L (4.60-5.80) X10*6/uL Hgb 10.4 L (14.0-18.0) g/dl Hct 32.8 L (42.0-52.0) % MCV 90.4 (80.0-98.0) fL MCH 28.7 (27.0-33.0) pg MCHC 31.7 (31.0-36.0) g/dl RDW 15.2 (11.0-16.0) % Plt Count 138 L (160-400) X10*3/uL MPV 11.1 (9.4-12.4) fL Immature Gran % (Auto) 0.3 (0.0-0.4) % Neut % (Auto) 63.9 (45-73) % Lymph % (Auto) 20.3 (20-40) % [place] % (Auto) 9.3 (2-11) % Eos % (Auto) 5.9 H (0-4) % Baso % (Auto) 0.3 (0-2) % Lymph # (Auto) 1.4 (1.2-4.9) X10*3/uL [place] # (Auto) 0.6 (0.1-1.2) X10*3/uL Eos # (Auto) 0.4 (0.0-0.4) X10*3/uL Baso # (Auto) 0.0 (0.0-0.2) X10*3/uL Abs Immat Gran (auto) 0.02 (0.00-0.03) X10*3/uL Absolute Neuts (auto) 4.3 (2.0-8.3) x10*3/uL Absolute Nucleated RBC 0.000 (0.0-0.012) X10*3/uL Nucleated RBC % (auto) 0.0 (0.0-0.2) /100WBC PT (10.0-13.1) SEC INR (0.9-1.1) APTT (24.1-38.0) SEC D-Dimer High Sensitivty NG/ML Sodium 140 (135-145) mmol/L Potassium 4.3 (3.3-5.1) mmol/L Chloride 111 H (96-108) mmol/L Carbon Dioxide 23 (22-29) mmol/L Anion Gap 10 L (12-20) BUN 16 (9-16) mg/dL Creatinine 1.09 (0.5-1.4) mg/dL Estim Creat Clear Calc 53.0 Estimated GFR > 60 Random Glucose 103 (60-115) mg/dL Calcium 8.9 (8.4-10.2) mg/dL Magnesium (1.6-2.6) mg/dL Total Bilirubin (0.0-1.0) mg/dL Direct Bilirubin (0.0-0.5) mg/dL AST (5-37) U/L ALT (0-40) U/L Alkaline Phosphatase (39-117) U/L Troponin I High Sens 9.9 (<3.5-35.0) ng/L Total Protein (6.5-8.0) g/dL Albumin (3.5-5.0) g/dL TSH (0.32-4.0) uIU/mL 10/02/21 10/02/21 10/02/21 Range/Units 20:31 20:31 20:31 WBC (4.8-10.8) X10*3/uL RBC (4.60-5.80) X10*6/uL Hgb (14.0-18.0) g/dl Hct (42.0-52.0) % MCV (80.0-98.0) fL MCH (27.0-33.0) pg MCHC (31.0-36.0) g/dl RDW (11.0-16.0) % Plt Count (160-400) X10*3/uL MPV (9.4-12.4) fL Immature Gran % (Auto) (0.0-0.4) % Neut % (Auto) (45-73) % Lymph % (Auto) (20-40) % [place] % (Auto) (2-11) % Eos % (Auto) (0-4) % Baso % (Auto) (0-2) % Lymph # (Auto) (1.2-4.9) X10*3/uL [place] # (Auto) (0.1-1.2) X10*3/uL Eos # (Auto) (0.0-0.4) X10*3/uL Baso # (Auto) (0.0-0.2) X10*3/uL Abs Immat Gran (auto) (0.00-0.03) X10*3/uL Absolute Neuts (auto) (2.0-8.3) x10*3/uL Absolute Nucleated RBC (0.0-0.012) X10*3/uL Nucleated RBC % (auto) (0.0-0.2) /100WBC PT 26.4 H (10.0-13.1) SEC INR 2.2 H D (0.9-1.1) APTT 43.7 H (24.1-38.0) SEC D-Dimer High Sensitivty < 150 NG/ML Sodium (135-145) mmol/L Potassium (3.3-5.1) mmol/L Chloride (96-108) mmol/L Carbon Dioxide (22-29) mmol/L Anion Gap (12-20) BUN (9-16) mg/dL Creatinine (0.5-1.4) mg/dL Estim Creat Clear Calc Estimated GFR Random Glucose (60-115) mg/dL Calcium (8.4-10.2) mg/dL Magnesium 1.7 (1.6-2.6) mg/dL Total Bilirubin 0.6 (0.0-1.0) mg/dL Direct Bilirubin 0.4 (0.0-0.5) mg/dL AST 15 (5-37) U/L ALT 14 (0-40) U/L Alkaline Phosphatase 85 (39-117) U/L Troponin I High Sens 10.8 (<3.5-35.0) ng/L Total Protein 6.5 (6.5-8.0) g/dL Albumin 4.3 (3.5-5.0) g/dL TSH 1.09 (0.32-4.0) uIU/mL ECG Data Attestation: I personally reviewed and interpreted this ECG as follows: Interpretation: Normal sinus rhythm heart rate 61 beats per minute with sinus arrhythmia left axis deviation LVH no acute ST wave changes no acute ischemia Discharge Plan Discharge Clinical Impression: Palpitations Patient Disposition: Home, Self-Care Instructions: Heart Palpitations (ED) Additional Instructions: Avoid caffeine intake Follow your PCP/cardiology for Holter monitoring Report to the ER if recurrence of the episode/dizziness/chest pain/passing out Evite la ingesta de cafe?na Siga a alberts PCP/cardi?logo para el monitoreo Holter Informe a la claudia de emergencias si recurre el episodio/mareos/dolor en el pecho/desmayo Prescriptions: No Action (DME) blood-glucose meter [OneTouch Verio Meter] Misc See Rx Instructions .ROUTE .MEDSUPPLY Qty: 1 0RF Rx Instructions: To check blood glucose once daily (DME) lancets [OneTouch Delica Plus Lancet] 30 gauge misc See Rx Instructions .ROUTE .MEDSUPPLY Qty: 100 3RF Rx Instructions: To test bg daily (DME) OneTouch Verio test strips Strip See Rx Instructions .ROUTE .MEDSUPPLY Qty: 50 11RF Rx Instructions: one time daily albuterol sulfate [Ventolin HFA] 90 mcg/actuation HFA aerosol inhaler 2 puff inhalation Q4-6H PRN (Reason: for wheezing) Qty: 54 1RF warfarin 5 mg tablet 5 mg PO DAILY Qty: 90 3RF Protocol: Dose Management Condition: Thursday (Week One) Dose/Route: 5 mg Instruction: 1 x 5 mg tablet Condition: Thursday Dose/Route: 5 mg Instruction: 1 x 5 mg tablet Condition: Thursday Dose/Route: 5 mg Instruction: 1 x 5 mg tablet Condition: Thursday Dose/Route: 5 mg Instruction: 1 x 5 mg tablet Condition: Dose/Route: 5 mg Instruction: 1 x 5 mg tablet Condition: Thursday Dose/Route: 5 mg Instruction: 1 x 5 mg tablet Condition: Thursday Dose/Route: 5 mg Instruction: 1 x 5 mg tablet Condition: Thursday (Week Two) Dose/Route: 5 mg Instruction: 1 x 5 mg tablet Condition: Thursday Dose/Route: 5 mg Instruction: 1 x 5 mg tablet Condition: Thursday Dose/Route: 5 mg Instruction: 1 x 5 mg tablet Condition: Thursday Dose/Route: 5 mg Instruction: 1 x 5 mg tablet Condition: Dose/Route: 5 mg Instruction: 1 x 5 mg tablet Condition: Thursday Dose/Route: 5 mg Instruction: 1 x 5 mg tablet Condition: Thursday Dose/Route: 5 mg Instruction: 1 x 5 mg tablet Protocol Text: Adjustment Start Date: Thursday09/23/21 INR Value: 3.0 INR Date: 09/23/21 Recheck Date: 10/14/21 Additional Instructions: INR is in range continue same dosing remember to balance greens and reds in diet metformin 500 mg tablet 500 mg PO BID Qty: 180 3RF lisinopril 20 mg tablet 20 mg PO DAILY Qty: 90 2RF amlodipine 10 mg tablet 10 mg PO DAILY 90 Days Qty: 90 2RF cilostazol 100 mg tablet 100 mg PO BID Qty: 180 3RF cyanocobalamin (vitamin B-12) [Vitamin B-12] 250 mcg tablet 250 mcg PO DAILY Qty: 90 3RF warfarin 2.5 mg tablet 2.5 mg PO DAILY 7 Days Qty: 7 0RF Protocol: Dose Management Condition: Thursday (Week One) Dose/Route: 5 mg Instruction: 1 x 5 mg tablet Condition: Thursday Dose/Route: 5 mg Instruction: 1 x 5 mg tablet Condition: Thursday Dose/Route: 5 mg Instruction: 1 x 5 mg tablet Condition: Thursday Dose/Route: 5 mg Instruction: 1 x 5 mg tablet Condition: Dose/Route: 5 mg Instruction: 1 x 5 mg tablet Condition: Thursday Dose/Route: 5 mg Instruction: 1 x 5 mg tablet Condition: Thursday Dose/Route: 5 mg Instruction: 1 x 5 mg tablet Condition: Thursday (Week Two) Dose/Route: 5 mg Instruction: 1 x 5 mg tablet Condition: Thursday Dose/Route: 5 mg Instruction: 1 x 5 mg tablet Condition: Thursday Dose/Route: 5 mg Instruction: 1 x 5 mg tablet Condition: Thursday Dose/Route: 5 mg Instruction: 1 x 5 mg tablet Condition: Dose/Route: 5 mg Instruction: 1 x 5 mg tablet Condition: Thursday Dose/Route: 5 mg Instruction: 1 x 5 mg tablet Condition: Thursday Dose/Route: 5 mg Instruction: 1 x 5 mg tablet Protocol Text: Adjustment Start Date: Thursday09/23/21 INR Value: 3.0 INR Date: 09/23/21 Recheck Date: 10/14/21 Additional Instructions: INR is in range continue same dosing remember to balance greens and reds in diet budesonide-formoterol [Symbicort] 160-4.5 mcg/actuation HFA aerosol inhaler 2 puff PO BID Qty: 30.6 1RF ipratropium-albuterol 0.5 mg-3 mg(2.5 mg base)/3 mL solution for nebulization 3 ml inhalation Q6H Qty: 180 1RF gabapentin 300 mg capsule 300 mg PO DAILY 90 Days Qty: 90 3RF aspirin [Adult Aspirin Regimen] 81 mg tablet,delayed release (DR/EC) 81 mg PO DAILY cholecalciferol (vitamin D3) 25 mcg (1,000 unit) capsule 25 mcg PO DAILY ascorbic acid (vitamin C) 1,000 mg tablet 1 g PO DAILY ferrous sulfate [FeroSul] 325 mg (65 mg iron) tablet 325 mg PO BID atorvastatin 40 mg tablet 40 mg PO DAILY Qty: 90 3RF (DME) Ultra-Light Rollator Misc See Rx Instructions .Route Qty: 1 0RF Rx Instructions: As directed, ambulate at all times with walker Narcan 4 mg/actuation spray,non-aerosol 4 mg intranasal Q2M 1 Days Qty: 2 1RF Rx Instructions: spray 1 dose into ONE nostril; alternate nostrils w each dose until help arrives (DME) lancets 28 gauge misc See Rx Instructions topical DAILY Qty: 100 Rx Instructions: As directed neomycin-polymyxin B-dexameth 3.5 mg/g-10,000 unit/g-0.1 % ointment ophthalmic (eye) oxycodone-acetaminophen 5-325 mg tablet 1 tab PO Q8H PRN (Reason: pain) 30 Days Qty: 90 0RF Rx Instructions: Do not fill till 10/12/2021 Partial Fill upon patient request. Referrals: Dedrick Ray MD [Physician] - 5 days Interventions: ED Discharge Assessment Last Done: 10/02/21 21:52 Discharge Date/Time: 10/02/21 21:53 Print Language: Cuban
[2021-10-02 19:08] VITALS: BP 152/82; PULSE 64; RESP 16; O2SAT 99
[2021-10-02 20:48] LABS: INTERNATIONAL NORM RATIO 2.2 (0.9-1.1); Prothrombin Time 26.4 SEC (10.0-13.1)
[2021-10-02 20:55] LABS: Alanine Aminotransferase 14 U/L (0-40); Albumin Level 4.3 g/dL (3.5-5.0); Alkaline Phosphatase 85 U/L (39-117); Aspartate Amino Transferase 15 U/L (5-37); Bilirubin Direct 0.4 mg/dL (0.0-0.5); Bilirubin Total 0.6 mg/dL (0.0-1.0); Magnesium 1.7 mg/dL (1.6-2.6); Total Protein 6.5 g/dL (6.5-8.0)
[2021-10-02 20:56] LABS: Partial Thromboplastin Time 43.7 SEC (24.1-38.0)
[2021-10-02 21:02] LABS: Troponin-I High Sensitivity 10.8 ng/L (<3.5-35.0)
[2021-10-02 21:10] LABS: D Dimer High Sensitivity < 150 NG/ML
[2021-10-02 21:16] LABS: Thyroid Stimulating Hormone 1.09 uIU/mL (0.32-4.0)
== END 2021-10-02 21:53 | disposition home or self-care (01) ==
PROVIDERS: Emergency Provider Internal Medicine; PCP Internal Medicine
DX: R00.2 Palpitations (principal); E11.22 Type 2 diabetes mellitus with diabetic chronic kidney disease; I12.9 Hypertensive chronic kidney disease with stage 1 through stage 4 chronic kidney disease, or unspecified chronic kidney disease; N18.32 Chronic kidney disease, stage 3b; E78.5 Hyperlipidemia, unspecified; Z86.718 Personal history of other venous thrombosis and embolism; Z79.02 Long term (current) use of antithrombotics/antiplatelets; Z79.01 Long term (current) use of anticoagulants; Z79.82 Long term (current) use of aspirin
CPT/HCPCS: 36415; 71045; 80048; 80076; 83735; 84443; 84484; 85025; 85379; 85610; 85730; 93005; 99284

== ENCOUNTER → 2021-10-14 13:04 | Outpatient (BNVA) | payer MEDICARE, MEDICAID, SELFPAY | PROVIDERS: PCP Internal Medicine; Visit Provider Internal Medicine | DX: I82.503 Chronic embolism and thrombosis of unspecified deep veins of lower extremity, bilateral (principal); Z79.01 Long term (current) use of anticoagulants; Z51.81 Encounter for therapeutic drug level monitoring | CPT/HCPCS: 85610; 99211 ==

== ENCOUNTER → 2021-10-23 12:47 | Outpatient (BNVA) | payer MEDICARE, MEDICAID, SELFPAY | PROVIDERS: PCP Internal Medicine; Visit Provider Anesthesiology | DX: I73.9 Peripheral vascular disease, unspecified (principal); M96.1 Postlaminectomy syndrome, not elsewhere classified; G89.4 Chronic pain syndrome; E11.21 Type 2 diabetes mellitus with diabetic nephropathy; E11.42 Type 2 diabetes mellitus with diabetic polyneuropathy; Z79.891 Long term (current) use of opiate analgesic | CPT/HCPCS: 99212 ==

== ENCOUNTER → 2021-10-28 13:41 | Outpatient (BNVA) | payer MEDICARE, MEDICAID, SELFPAY | PROVIDERS: PCP Internal Medicine; Visit Provider Internal Medicine | DX: I82.503 Chronic embolism and thrombosis of unspecified deep veins of lower extremity, bilateral (principal); Z79.01 Long term (current) use of anticoagulants; Z51.81 Encounter for therapeutic drug level monitoring | CPT/HCPCS: 85610; 99211 ==

== ENCOUNTER → 2021-11-13 13:08 | Outpatient (BNVA) | payer MEDICARE, MEDICAID, SELFPAY | PROVIDERS: PCP Internal Medicine; Visit Provider Internal Medicine | DX: I82.503 Chronic embolism and thrombosis of unspecified deep veins of lower extremity, bilateral (principal); Z51.81 Encounter for therapeutic drug level monitoring; Z79.01 Long term (current) use of anticoagulants | CPT/HCPCS: 85610; 99211 ==

== ENCOUNTER → 2021-11-25 13:28 | Outpatient (BNVA) | payer MEDICARE, MEDICAID, SELFPAY | PROVIDERS: PCP Internal Medicine; Visit Provider Anesthesiology | DX: Z51.81 Encounter for therapeutic drug level monitoring (principal); F11.20 Opioid dependence, uncomplicated; M96.1 Postlaminectomy syndrome, not elsewhere classified; G89.4 Chronic pain syndrome; I73.9 Peripheral vascular disease, unspecified; E11.21 Type 2 diabetes mellitus with diabetic nephropathy; E11.42 Type 2 diabetes mellitus with diabetic polyneuropathy | CPT/HCPCS: 99212 ==

== ENCOUNTER → 2021-11-27 13:05 | Outpatient (BNVA) | payer MEDICARE, MEDICAID, SELFPAY | PROVIDERS: PCP Internal Medicine; Visit Provider Internal Medicine | DX: I82.503 Chronic embolism and thrombosis of unspecified deep veins of lower extremity, bilateral (principal); Z79.01 Long term (current) use of anticoagulants; Z51.81 Encounter for therapeutic drug level monitoring | CPT/HCPCS: 85610; 99211 ==

== ENCOUNTER → 2021-12-11 13:02 | Outpatient (BNVA) | payer MEDICARE, MEDICAID, SELFPAY | PROVIDERS: PCP Internal Medicine; Visit Provider Internal Medicine | DX: I82.503 Chronic embolism and thrombosis of unspecified deep veins of lower extremity, bilateral (principal); Z79.01 Long term (current) use of anticoagulants; Z51.81 Encounter for therapeutic drug level monitoring | CPT/HCPCS: 85610; 99211 ==

== ENCOUNTER 2021-12-17 09:16 | Outpatient (REF) | payer MEDICARE, MEDICAID, SELFPAY ==
[2021-12-17 09:41] LABS: MANUAL DIFF FLAG NO
[2021-12-17 10:03] LABS: Basophils Percent Auto 0.3 % (0-2); Eosinophils Absolute Auto 0.4 X10*3/uL (0.0-0.4); Eosinophils Percent Auto 6.2 % (0-4); Hematocrit 35.2 % (42.0-52.0); Imm Gran Abs Auto 0.02 X10*3/uL (0.00-0.03); Imm Gran Pct Auto 0.3 % (0.0-0.4); Lymphocytes Absolute Auto 0.9 X10*3/uL (1.2-4.9); Lymphocytes Percent Auto 14.6 % (20-40); Mean Corpuscular HGB Conc 31.3 g/dl (31.0-36.0); Mean Corpuscular Hemoglobin 28.4 pg (27.0-33.0); Mean Corpuscular Volume 90.7 fL (80.0-98.0); Mean Platelet Volume 11.8 fL (9.4-12.4); Monocytes Absolute Auto 0.5 X10*3/uL (0.1-1.2); Monocytes Percent Auto 7.1 % (2-11); Neutrophils Absolute Auto 4.5 x10*3/uL (2.0-8.3); Neutrophils Percent Auto 71.5 % (45-73); Platelet Count 150 X10*3/uL (160-400); Red Blood Count 3.88 X10*6/uL (4.60-5.80); Red Cell Distribution Width 15.1 % (11.0-16.0); White Blood Count 6.3 X10*3/uL (4.8-10.8)
[2021-12-17 10:10] LABS: Estimated Average Glucose 128 mg/dL; Hemoglobin A1c % 6.1 %
[2021-12-17 10:45] LABS: Alanine Aminotransferase 9 U/L (0-40); Albumin Level 4.1 g/dL (3.5-5.0); Alkaline Phosphatase 85 U/L (39-117); Anion Gap 14 (12-20); Aspartate Amino Transferase 13 U/L (5-37); Bilirubin Total 0.5 mg/dL (0.0-1.0); Blood Urea Nitrogen 15 mg/dL (9-16); Calcium 8.8 mg/dL (8.4-10.2); Carbon Dioxide 23 mmol/L (22-29); Chloride 110 mmol/L (96-108); Cholesterol 106 mg/dL; Estimated Glomerular Filt Rate 60; Glucose Random 140 mg/dL (60-115); HDL Cholesterol 47 mg/dL; LDL Cholesterol Calculated 51 mg/dl; Potassium 4.4 mmol/L (3.3-5.1); Sodium 143 mmol/L (135-145); Total Protein 6.3 g/dL (6.5-8.0); Triglycerides 44 mg/dL
[2021-12-17 10:54] LABS: Free T4 (Free Thyroxine) 1.06 ng/dL (0.71-1.85); Thyroid Stimulating Hormone 0.98 uIU/mL (0.32-4.0)
[2021-12-17 11:17] LABS: Creatinine Urine 108.41 mg/dL
[2021-12-17 11:19] LABS: Folate > 20.0 ng/mL (> or = 4.0); Vitamin B12 718 pg/mL (200-900)
== END 2021-12-17 09:17 | disposition home or self-care (01) ==
LOC: HO.LAB 09:16
PROVIDERS: PCP Internal Medicine; Visit Provider Internal Medicine
DX: E11.65 Type 2 diabetes mellitus with hyperglycemia (principal); E78.00 Pure hypercholesterolemia, unspecified; I82.409 Acute embolism and thrombosis of unspecified deep veins of unspecified lower extremity; C16.9 Malignant neoplasm of stomach, unspecified
CPT/HCPCS: 36415; 80053; 80061; 82043; 82607; 82746; 83036; 84439; 84443; 85025

== ENCOUNTER → 2022-01-01 13:10 | Outpatient (BNVA) | payer MEDICARE, MEDICAID, SELFPAY | PROVIDERS: PCP Internal Medicine; Visit Provider Internal Medicine | DX: Z51.81 Encounter for therapeutic drug level monitoring (principal); Z79.01 Long term (current) use of anticoagulants; I82.503 Chronic embolism and thrombosis of unspecified deep veins of lower extremity, bilateral; I73.9 Peripheral vascular disease, unspecified; E11.21 Type 2 diabetes mellitus with diabetic nephropathy; E11.42 Type 2 diabetes mellitus with diabetic polyneuropathy; M96.1 Postlaminectomy syndrome, not elsewhere classified; G89.4 Chronic pain syndrome | CPT/HCPCS: 85610; 99211; 99212 ==

== ENCOUNTER → 2022-01-08 12:59 | Outpatient (BNVA) | payer MEDICARE, MEDICAID, SELFPAY | PROVIDERS: PCP Internal Medicine; Visit Provider Internal Medicine | DX: I82.503 Chronic embolism and thrombosis of unspecified deep veins of lower extremity, bilateral (principal); Z79.01 Long term (current) use of anticoagulants; Z51.81 Encounter for therapeutic drug level monitoring | CPT/HCPCS: 85610; 99211 ==

== ENCOUNTER → 2022-01-17 12:41 | Outpatient (BNVA) | payer MEDICARE, MEDICAID, SELFPAY | PROVIDERS: PCP Internal Medicine; Visit Provider Anesthesiology | DX: Z51.81 Encounter for therapeutic drug level monitoring (principal); F11.20 Opioid dependence, uncomplicated | CPT/HCPCS: 99211 ==

== ENCOUNTER → 2022-01-22 13:10 | Outpatient (BNVA) | payer MEDICARE, MEDICAID, SELFPAY | PROVIDERS: PCP Internal Medicine; Visit Provider Internal Medicine | DX: I82.503 Chronic embolism and thrombosis of unspecified deep veins of lower extremity, bilateral (principal); Z79.01 Long term (current) use of anticoagulants; Z51.81 Encounter for therapeutic drug level monitoring | CPT/HCPCS: 85610; 99211 ==

== ENCOUNTER → 2022-02-06 13:07 | Outpatient (BNVA) | payer MEDICARE, MEDICAID, SELFPAY | PROVIDERS: PCP Internal Medicine; Visit Provider Internal Medicine | DX: I82.503 Chronic embolism and thrombosis of unspecified deep veins of lower extremity, bilateral (principal); Z79.01 Long term (current) use of anticoagulants; Z51.81 Encounter for therapeutic drug level monitoring | CPT/HCPCS: 85610; 99211 ==

== ENCOUNTER → 2022-02-17 09:58 | Outpatient (BNVA) | payer MEDICARE, MEDICAID, SELFPAY | PROVIDERS: PCP Internal Medicine; Visit Provider Anesthesiology | DX: G89.4 Chronic pain syndrome (principal); M47.816 Spondylosis without myelopathy or radiculopathy, lumbar region; M96.1 Postlaminectomy syndrome, not elsewhere classified; I73.9 Peripheral vascular disease, unspecified; E11.21 Type 2 diabetes mellitus with diabetic nephropathy; E11.42 Type 2 diabetes mellitus with diabetic polyneuropathy; Z79.891 Long term (current) use of opiate analgesic | CPT/HCPCS: 99212 ==

== ENCOUNTER → 2022-02-18 13:42 | Outpatient (BNVA) | payer MEDICARE, MEDICAID, SELFPAY | PROVIDERS: PCP Internal Medicine; Visit Provider Internal Medicine | DX: I82.503 Chronic embolism and thrombosis of unspecified deep veins of lower extremity, bilateral (principal); Z79.01 Long term (current) use of anticoagulants; Z51.81 Encounter for therapeutic drug level monitoring | CPT/HCPCS: 85610; 99211 ==

== ENCOUNTER 2022-03-12 10:48 | Outpatient (REF) | payer MEDICARE, MEDICAID, SELFPAY ==
[2022-03-12 12:27] LABS: Prothrombin Time 96.1 SEC (10.0-13.1)
[2022-03-12 12:30] LABS: INTERNATIONAL NORM RATIO 7.7 (0.9-1.1)
== END 2022-03-12 10:49 | disposition home or self-care (01) ==
LOC: HO.LAB 10:48
PROVIDERS: Internal Medicine; PCP Internal Medicine; Visit Provider Anesthesiology
DX: I82.503 Chronic embolism and thrombosis of unspecified deep veins of lower extremity, bilateral (principal); Z51.81 Encounter for therapeutic drug level monitoring; Z79.01 Long term (current) use of anticoagulants
CPT/HCPCS: 36415; 85610; 99212

== ENCOUNTER → 2022-03-13 10:50 | Outpatient (BNVA) | payer MEDICARE, MEDICAID, SELFPAY | PROVIDERS: PCP Internal Medicine; Visit Provider Internal Medicine | DX: I82.503 Chronic embolism and thrombosis of unspecified deep veins of lower extremity, bilateral (principal); Z79.01 Long term (current) use of anticoagulants; Z51.81 Encounter for therapeutic drug level monitoring | CPT/HCPCS: 85610; 99211 ==

== ENCOUNTER → 2022-03-19 13:18 | Outpatient (BNVA) | payer MEDICARE, MEDICAID, SELFPAY | PROVIDERS: PCP Internal Medicine; Visit Provider Internal Medicine | DX: I82.503 Chronic embolism and thrombosis of unspecified deep veins of lower extremity, bilateral (principal); Z79.01 Long term (current) use of anticoagulants; Z51.81 Encounter for therapeutic drug level monitoring | CPT/HCPCS: 85610; 99211 ==

== ENCOUNTER → 2022-03-20 11:07 | Outpatient (BNVA) | payer MEDICARE, MEDICAID, SELFPAY | PROVIDERS: PCP Internal Medicine; Visit Provider Internal Medicine | DX: J43.9 Emphysema, unspecified (principal) | CPT/HCPCS: 99212 ==

== ENCOUNTER → 2022-03-28 13:05 | Outpatient (BNVA) | payer MEDICARE, MEDICAID, SELFPAY | PROVIDERS: PCP Internal Medicine; Visit Provider Internal Medicine | DX: I82.503 Chronic embolism and thrombosis of unspecified deep veins of lower extremity, bilateral (principal); Z79.01 Long term (current) use of anticoagulants; Z51.81 Encounter for therapeutic drug level monitoring | CPT/HCPCS: 85610; 99211 ==

== ENCOUNTER → 2022-04-09 11:02 | Outpatient (BNVA) | payer MEDICARE, MEDICAID, SELFPAY | PROVIDERS: PCP Internal Medicine; Visit Provider Anesthesiology | DX: Z51.81 Encounter for therapeutic drug level monitoring (principal); F11.20 Opioid dependence, uncomplicated; I73.9 Peripheral vascular disease, unspecified; M96.1 Postlaminectomy syndrome, not elsewhere classified; E11.21 Type 2 diabetes mellitus with diabetic nephropathy; E11.42 Type 2 diabetes mellitus with diabetic polyneuropathy; G89.4 Chronic pain syndrome | CPT/HCPCS: 99212 ==

== ENCOUNTER → 2022-04-11 13:21 | Outpatient (BNVA) | payer MEDICARE, MEDICAID, SELFPAY | PROVIDERS: PCP Internal Medicine; Visit Provider Internal Medicine | DX: I82.503 Chronic embolism and thrombosis of unspecified deep veins of lower extremity, bilateral (principal); Z79.01 Long term (current) use of anticoagulants; Z51.81 Encounter for therapeutic drug level monitoring | CPT/HCPCS: 85610; 99211 ==

== ENCOUNTER → 2022-04-25 12:59 | Outpatient (BNVA) | payer MEDICARE, MEDICAID, SELFPAY | PROVIDERS: PCP Internal Medicine; Visit Provider Internal Medicine | DX: I82.503 Chronic embolism and thrombosis of unspecified deep veins of lower extremity, bilateral (principal); Z79.01 Long term (current) use of anticoagulants; Z51.81 Encounter for therapeutic drug level monitoring | CPT/HCPCS: 85610; 99211 ==

== ENCOUNTER 2022-05-06 10:26 | Outpatient (REF) | payer MEDICARE, MEDICAID, SELFPAY ==
--- NOTE | ~2022-05-06 | XR_ITS ---
EXAMINATION: XR SHOULDER, RIGHT CLINICAL INFORMATION: Pain COMPARISON: None TECHNIQUE: AP external rotation, Grashey, scapular Y, and axillary views of the right shoulder. FINDINGS: The bones and soft tissues are normal. No fracture. Glenohumeral and acromioclavicular alignment is anatomic with normal joint space. No abnormal soft tissue calcifications. XR/XR shoulder RT min 2V IMPRESSION: Unremarkable right shoulder.
== END 2022-05-06 10:27 | disposition home or self-care (01) ==
LOC: HO.XRAY 10:26
PROVIDERS: PCP Internal Medicine; Visit Provider Internal Medicine
DX: M25.511 Pain in right shoulder (principal); Z79.899 Other long term (current) drug therapy
CPT/HCPCS: 73030

== ENCOUNTER → 2022-05-16 13:18 | Outpatient (BNVA) | payer MEDICARE, MEDICAID, SELFPAY | PROVIDERS: PCP Internal Medicine; Visit Provider Internal Medicine | DX: I82.503 Chronic embolism and thrombosis of unspecified deep veins of lower extremity, bilateral (principal); Z79.01 Long term (current) use of anticoagulants; Z51.81 Encounter for therapeutic drug level monitoring | CPT/HCPCS: 85610; 99211 ==

== ENCOUNTER → 2022-06-04 14:47 | Outpatient (BNVA) | payer MEDICARE, MEDICAID, SELFPAY | PROVIDERS: PCP Internal Medicine; Visit Provider Anesthesiology | DX: I82.503 Chronic embolism and thrombosis of unspecified deep veins of lower extremity, bilateral (principal); Z79.01 Long term (current) use of anticoagulants; Z51.81 Encounter for therapeutic drug level monitoring; M96.1 Postlaminectomy syndrome, not elsewhere classified; G89.4 Chronic pain syndrome; I73.9 Peripheral vascular disease, unspecified; E11.42 Type 2 diabetes mellitus with diabetic polyneuropathy; E11.21 Type 2 diabetes mellitus with diabetic nephropathy | CPT/HCPCS: 85610; 99211; 99212 ==

== ENCOUNTER → 2022-06-25 13:09 | Outpatient (BNVA) | payer MEDICARE, MEDICAID, SELFPAY | PROVIDERS: PCP Internal Medicine; Visit Provider Internal Medicine | DX: I82.503 Chronic embolism and thrombosis of unspecified deep veins of lower extremity, bilateral (principal); Z79.01 Long term (current) use of anticoagulants; Z51.81 Encounter for therapeutic drug level monitoring | CPT/HCPCS: 85610; 99211 ==

== ENCOUNTER → 2022-07-02 12:49 | Outpatient (BNVA) | payer MEDICARE, MEDICAID, SELFPAY | PROVIDERS: PCP Internal Medicine; Visit Provider Anesthesiology | DX: Z51.81 Encounter for therapeutic drug level monitoring (principal); F11.20 Opioid dependence, uncomplicated | CPT/HCPCS: 99211 ==

== ENCOUNTER → 2022-07-16 13:14 | Outpatient (BNVA) | payer MEDICARE, MEDICAID, SELFPAY | PROVIDERS: PCP Internal Medicine; Visit Provider Internal Medicine | DX: I82.503 Chronic embolism and thrombosis of unspecified deep veins of lower extremity, bilateral (principal); Z79.01 Long term (current) use of anticoagulants; Z51.81 Encounter for therapeutic drug level monitoring | CPT/HCPCS: 85610; 99211 ==

== ENCOUNTER → 2022-07-30 11:04 | Outpatient (BNVA) | payer MEDICARE, MEDICAID, SELFPAY | PROVIDERS: PCP Internal Medicine; Visit Provider Internal Medicine | DX: I82.503 Chronic embolism and thrombosis of unspecified deep veins of lower extremity, bilateral (principal); Z79.01 Long term (current) use of anticoagulants; Z51.81 Encounter for therapeutic drug level monitoring; F11.20 Opioid dependence, uncomplicated; I73.9 Peripheral vascular disease, unspecified; E11.21 Type 2 diabetes mellitus with diabetic nephropathy; E11.42 Type 2 diabetes mellitus with diabetic polyneuropathy; M96.1 Postlaminectomy syndrome, not elsewhere classified; G89.4 Chronic pain syndrome | CPT/HCPCS: 85610; 99211; 99212 ==

== ENCOUNTER → 2022-08-06 13:14 | Outpatient (BNVA) | payer MEDICARE, MEDICAID, SELFPAY | PROVIDERS: PCP Internal Medicine; Visit Provider Internal Medicine | DX: I82.503 Chronic embolism and thrombosis of unspecified deep veins of lower extremity, bilateral (principal); Z79.01 Long term (current) use of anticoagulants; Z51.81 Encounter for therapeutic drug level monitoring | CPT/HCPCS: 85610; 99211 ==

== ENCOUNTER → 2022-08-20 13:03 | Outpatient (BNVA) | payer MEDICARE, MEDICAID, SELFPAY | PROVIDERS: PCP Internal Medicine; Visit Provider Internal Medicine | DX: I82.503 Chronic embolism and thrombosis of unspecified deep veins of lower extremity, bilateral (principal); Z79.01 Long term (current) use of anticoagulants; Z51.81 Encounter for therapeutic drug level monitoring | CPT/HCPCS: 85610; 99211 ==

== ENCOUNTER → 2022-08-27 11:18 | Outpatient (BNVA) | payer MEDICARE, MEDICAID, SELFPAY | PROVIDERS: PCP Internal Medicine; Visit Provider Registered Nurse Emergency | DX: Z51.81 Encounter for therapeutic drug level monitoring (principal); I73.9 Peripheral vascular disease, unspecified; E11.21 Type 2 diabetes mellitus with diabetic nephropathy; E11.42 Type 2 diabetes mellitus with diabetic polyneuropathy; M96.1 Postlaminectomy syndrome, not elsewhere classified; G89.4 Chronic pain syndrome; F11.20 Opioid dependence, uncomplicated | CPT/HCPCS: 99212 ==

== ENCOUNTER → 2022-09-03 13:01 | Outpatient (BNVA) | payer MEDICARE, MEDICAID, SELFPAY | PROVIDERS: PCP Internal Medicine; Visit Provider Internal Medicine | DX: I82.503 Chronic embolism and thrombosis of unspecified deep veins of lower extremity, bilateral (principal); Z51.81 Encounter for therapeutic drug level monitoring; Z79.01 Long term (current) use of anticoagulants | CPT/HCPCS: 85610; 99211 ==

== ENCOUNTER → 2022-09-08 13:02 | Outpatient (BNVA) | payer MEDICARE, MEDICAID, SELFPAY | PROVIDERS: PCP Internal Medicine; Visit Provider Internal Medicine | DX: I82.503 Chronic embolism and thrombosis of unspecified deep veins of lower extremity, bilateral (principal); Z79.01 Long term (current) use of anticoagulants; Z51.81 Encounter for therapeutic drug level monitoring | CPT/HCPCS: 85610; 99211 ==

== ENCOUNTER 2022-09-17 11:32 | Outpatient (AMB) | payer MEDICARE, MEDICAID, SELFPAY ==
--- NOTE | 2022-09-17 11:34 | MHC.OFFVIS ---
Intake Vital Signs 09/17/22 11:36 Height 5 ft 10 in Weight 164 lb BMI 23.5 BP 104/50 L Blood Pressure Location Lt brachial Position Standing Pulse 70 Pulse Source Pulse Oximeter Pulse Oximetry (%) 97 Oxygen Delivery Method Room Air Intake Visit Reasons: COPD follow-up Intake Note: pt is here for follow up and states the nurse visited on Thursday and stated he had little wheeze Fieldwork Coordinator Required: No Allergies No Known Allergies Allergy (Mild, Verified 09/17/22 11:47) NOT APPLICABLE Medication List - Last Reconciled 09/17/22 by Main Luis MD amlodipine 10 mg PO DAILY 90 days ascorbic acid (vitamin C) 1 g PO DAILY atorvastatin 40 mg PO DAILY blood sugar diagnostic ([place] Verio test strips) one time daily blood-glucose meter ([place] Verio Meter) To check blood glucose once daily cholecalciferol (vitamin D3) 25 mcg PO DAILY cilostazol 100 mg PO BID cyanocobalamin (vitamin B-12) (Vitamin B-12) 250 mcg PO DAILY ferrous sulfate (FeroSul) 325 mg PO BID fluticasone propionate 50 mcg/actuation 2 sprays intranasal DAILY gabapentin 300 mg PO DAILY 90 days [garlic clove 1 dose PO NEEDED] ipratropium-albuterol 0.5 mg-3 mg(2.5 mg base)/3 mL 3 mL inhalation Q6H lancets (iAgreeuch Delica Plus Lancet) To test bg daily lancets As directed metformin 500 mg PO DAILY metoprolol succinate ER 25 mg PO DAILY naloxone 4 mg/actuation (Narcan) 4 mg intranasal Q2M 1 day oxycodone-acetaminophen 5-325 mg 1 tab PO Q8H PRN 30 days Symbicort 160-4.5 mcg/actuation (budesonide-formoterol) 2 puffs PO BID NS Ventolin HFA 90 mcg/actuation (albuterol sulfate) 2 puffs inhalation Q4-6H PRN NS walker (Ultra-Light Rollator misc) As directed, ambulate at all times with walker warfarin 5 mg See Protocol PO DAILY warfarin 2.5 mg See Protocol PO DAILY 90 days Do you need a note to return to daycare/school/sports/work: No HPI COPD follow-up HPI Details 82 YEARS OLD GENTLEMAN, COMES AFTER 6 MONTHS. FOR ROUTINE FOLLOW-UP HE IS BEING TREATED FOR COPD WHICH REMAINS STABLE. VISITING NURSES CHECK HIM PERIODICALLY AND TELL HIM THAT HE HAS SOME WHEEZES. ON THE BACK OF THE CHEST HE HIMSELF DOES NOT COMPLAIN MUCH. HE HAS MINIMAL COUGH OFF AND ON, HE DENIES ANY WHEEZING ATTACKS, HE WALKS VERY SLOW AND DOES NOT HAVE ANY SIGNIFICANT SHORTNESS OF BREATH. USES HIS MEDS REGULARLY. [facility] Medical History BPH (benign prostatic hyperplasia) Bronchiectasis Chronic pain syndrome Compression fracture of L1 lumbar vertebra Controlled type 2 diabetes mellitus with diabetic nephropathy, without long-term current use of insulin COPD (chronic obstructive pulmonary disease) COPD (chronic obstructive pulmonary disease) Diabetic polyneuropathy Gastric carcinoma History of gastric cancer Hyperlipidemia LDL goal <70 Joint pain Lumbar spondylosis Moderate aortic stenosis Peripheral vascular disease Peripheral vascular disease Pneumonia Postlaminectomy syndrome Recurrent deep vein thrombosis (DVT) Type 2 diabetes mellitus with diabetic polyneuropathy Type 2 diabetes mellitus with hyperglycemia Vitamin B12 deficiency Surgical History Amputation of toe of left foot History of colonoscopy History of gastrectomy Family History Father Diabetes Cancer Mother Diabetes Brother Lung cancer Social History Household Members: None Household Members Other:: lives alone son checks by daily Housing: Apartment Are you a primary ambulatory care nurse to a significant other at home: No Do you presently have visiting nurse or other home services: No Alcohol intake: former Year quit: 1969 Patient Tobacco Use Status: Never used Tobacco e-Cigarette/Vaping Use: Never Used Second Hand Smoke Exposure: No service: No Current occupational status: retired Cognitive needs: Yes (walker/power chair) Hearing needs: No Vision needs: Yes (reading) Review of Systems Const All systems reviewed & are unremarkable except as noted in HPI and below Denies poor appetite and Denies weakness Eyes Denies no additional complaints ENT Reports Normal hearing present, Denies dizziness, Reports nasal congestion (MILD ), Denies tinnitus and Denies sore throat Card Denies chest pain, Denies syncope, Denies rapid heart rate and Denies dyspnea Resp Denies cough and Denies dyspnea GI Denies change in stool character, Reports constipation, Denies diarrhea, Denies nausea and Denies vomiting Denies dysuria and Denies urinary frequency Musc Reports back pain and Reports stiffness Skin/Breast Reports system reviewed and no additional complaints, except as documented Neuro Reports Normal hearing present, Denies confusion, Denies dizziness, Denies syncope and Denies weakness Psych Denies confusion Endo Reports other (Being treated for diabetes mellitus) Physical Exam Vital Signs: Last Vital Signs Pulse 70 09/17/22 11:36 BP 104/50 L 09/17/22 11:36 Pulse Ox 97 09/17/22 11:36 Oxygen Delivery Method Room Air 09/17/22 11:36 BMI result Body Mass Index 23.5 Const General: No confusion Orientation/consciousness: No confusion HEENT Head: Yes normal to inspection General nose exam: No nasal polyps present and No nasal discharge present Face and sinus: Yes sinuses nontender Mouth: oropharynx normal Throat: Yes posterior oropharynx normal Eyes General: appearance normal, both eyes and all related structures Neck Neck: Yes normal visual inspection, Yes no lymphadenopathy, Yes trachea midline and Yes no JVD Thyroid: Thyroid normal Chest Chest palpation & inspection: normal inspection of the chest, normal palpation of entire chest wall and no tenderness Resp Other: Percussion note resonant on both sides. Breath sounds are slightly diminished and prolonged expiratory phase on both sides. No wheezes rhonchi or crepitations are heard today . Cardio Palpation: normal PMI Rate: regular rate Rhythm: regular rhythm Heart sounds: no gallops and no murmurs GI Palpation (GI): Soft to palpation, nontender, No hepatosplenomegaly present and no masses Auscultation: normal bowel sounds Back/Spine/Pelvis Thoracic/Lumbar Spine: thoracic and lumbar spine normal to inspection, thoraco-lumbar ROM limited and thoraco-lumbar spasm Skin General skin exam: no rashes or lesions noted Neuro General: No confusion Cranial nerves: Yes Normal hearing present Extrem General: Yes normal to inspection, Yes no clubbing, cyanosis or edema and Yes no calf tenderness Psych Mental Status: mental status grossly normal Speech and movement: Normal speech and movement present Assessment & Plan Assessment & Plan (1) COPD (chronic obstructive pulmonary disease): Comment: This patient is well known to have chronic obstructive pulmonary disease, moderately severe. He is staying stable with the current medical regimen , except for intermittent increase in cough and mucus production. [place]: Symbicort 160-4.52 puffs b.i.d. Ipratropium-albuterol solution 3 ml in nebulizer Q 4-6 hours t.i.d.and PRN ventolin HFA 2 puffs Q 4-6 hours p.r.n. when outdoors. For cough which seems to be due to nasal congestion an days and then p.r.n. for a few d postnasal discharge, may use Claritin 10 mg once a day for a few days , then PRN . Code(s): J44.9 - Chronic obstructive pulmonary disease, unspecified Qualifiers: COPD type: emphysema Emphysema type: unspecified Qualified Code(s): J43.9 - Emphysema, unspecified Coding Level of Care Code Est Pt Level 3 (48488) Diagnoses COPD (chronic obstructive pulmonary disease) J43.9 COPD type: emphysema Emphysema type: unspecified
[2022-09-17 11:36] VITALS: BP 104/50; PULSE 70; O2SAT 97; BMI 23.5
== END 2022-09-17 11:49 | disposition home or self-care (01) ==
PROVIDERS: PCP Internal Medicine; Visit Provider Internal Medicine
DX: J43.9 Emphysema, unspecified (principal)
CPT/HCPCS: 99213

== ENCOUNTER → 2022-09-17 11:32 | Outpatient (BNVA) | payer MEDICARE, MEDICAID, SELFPAY | PROVIDERS: PCP Internal Medicine; Visit Provider Internal Medicine | DX: J43.9 Emphysema, unspecified (principal) | CPT/HCPCS: 99212 ==

== ENCOUNTER 2022-09-29 13:10 | Outpatient (AMB) | payer MEDICARE, MEDICAID, SELFPAY ==
--- NOTE | 2022-09-29 13:29 | MHC.OFFVISCO ---
Intake Intake Visit Reasons: Anticoagulation Allergies No Known Allergies Allergy (Mild, Verified 09/29/22 13:25) NOT APPLICABLE Medication List - Last Reconciled 09/29/22 by Francheska Chung RN amlodipine 10 mg PO DAILY 90 days ascorbic acid (vitamin C) 1 g PO DAILY atorvastatin 40 mg PO DAILY blood sugar diagnostic ([employer] Verio test strips) one time daily blood-glucose meter ([employer] Verio Meter) To check blood glucose once daily cholecalciferol (vitamin D3) 25 mcg PO DAILY cilostazol 100 mg PO BID cyanocobalamin (vitamin B-12) (Vitamin B-12) 250 mcg PO DAILY ferrous sulfate (FeroSul) 325 mg PO BID fluticasone propionate 50 mcg/actuation 2 sprays intranasal DAILY gabapentin 300 mg PO DAILY 90 days [garlic clove 1 dose PO NEEDED] ipratropium-albuterol 0.5 mg-3 mg(2.5 mg base)/3 mL 3 mL inhalation Q6H lancets ([employer] Delica Plus Lancet) To test bg daily lancets As directed metformin 500 mg PO DAILY metoprolol succinate ER 25 mg PO DAILY naloxone 4 mg/actuation (Narcan) 4 mg intranasal Q2M 1 day oxycodone-acetaminophen 5-325 mg 1 tab PO Q8H PRN 30 days Symbicort 160-4.5 mcg/actuation (budesonide-formoterol) 2 puffs PO BID NS Ventolin HFA 90 mcg/actuation (albuterol sulfate) 2 puffs inhalation Q4-6H PRN NS walker (Ultra-Light Rollator misc) As directed, ambulate at all times with walker warfarin 5 mg See Protocol PO DAILY warfarin 2.5 mg See Protocol PO DAILY 90 days Nursing Note INR 3.6-? out of therapeutic range Medications and supplements reviewed Patient status: pt went to [place] last week for 4 days Medications or supplements: no changes Diet: appetite is good, had many erendira Denies any signs and symptoms of bleeding or clotting or unusual bruising Bleeding, bruising, clotting discussed Nutritional guidance given: eat greens for 2 days, no reds for 2 days Dose: 2.5mg today, then cont 5mg x 6, 2.5mg x 1 F/U INR Date : 2 weeks? Patient verbalizing understanding of instructions given. 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
[2022-09-29 13:30] LABS: Prothrombin Time Whole Bld POC 42.7 sec (11.1-13.5); ~PT, ~INR - Anti Coag Clinic 3.6 (0.9-1.1)
== END 2022-09-29 13:36 | disposition home or self-care (01) ==
LOC: HO.ACS 13:10
PROVIDERS: PCP Internal Medicine; Visit Provider Internal Medicine
DX: Z79.01 Long term (current) use of anticoagulants (principal)

== ENCOUNTER → 2022-09-29 13:10 | Outpatient (BNVA) | payer MEDICARE, MEDICAID, SELFPAY | PROVIDERS: PCP Internal Medicine; Visit Provider Internal Medicine | DX: I82.403 Acute embolism and thrombosis of unspecified deep veins of lower extremity, bilateral (principal); Z51.81 Encounter for therapeutic drug level monitoring; Z79.01 Long term (current) use of anticoagulants | CPT/HCPCS: 85610; 99211 ==

== ENCOUNTER 2022-10-01 11:06 | Outpatient (AMB) | payer MEDICARE, MEDICAID, SELFPAY ==
--- NOTE | 2022-10-01 11:15 | MHC.OFFVIS ---
Intake Vital Signs 10/01/22 11:16 Height 5 ft 10 in Weight 163 lb 8 oz BMI 23.5 BP 126/66 Blood Pressure Location Rt brachial Position Sitting Respiration 14 Pulse 70 Pulse Source Pulse Oximeter Pulse Oximetry (%) 97 Oxygen Delivery Method Room Air Intake Visit Reasons: PILL COUNT Allergies No Known Allergies Allergy (Mild, Verified 10/01/22 11:17) NOT APPLICABLE HPI HPI Comments History of Present Illness Details Bao is a very pleasant 81-year-old male patient who presents to the office today with his son for follow up chronic pain and chronic opioid therapy management. Patient is prescribed oxyocodone acetaminophen 5-325mg take 1 tablet three times a day. Patient arrived today with the expectation of having 66 pills, he presented 67 pills which were counted in the presence of two staff members and returned to the patient in the original prescription bottle. This demonstrates responsible attitude toward patient's opioid medications. Pain is reported today as 8/10 and last dose of pain medication was taken at 04:00 this morning. Pain is adequately managed on current opioid regimen. Patient denies any recent changes or exacerbations of chronic back pain and states he is able to engage in activities of daily living with minimal interruption due to chronic pain. Patient denies somnolence, weakness, dizziness, nausea or vomiting. Patient reports today he awoke with RUQ pain, was able to eat breakfast. Last BM was 10pm yesterday, he currently utilizes prune juice to ensure regular bowel movements and has not had any recent issues. Denies vomiting or nausea. Pain is not reproducible with movement. Son reports they are leaving here and walking over to the pcp office for abdominal pain. Previous: He was under care of Dr. Dunn.? Attempts to convert him to buprenorphine in the form of Bel[place]uca or buprenorphine patch failed. He suffers from postlaminectomy syndrome, he suffers from vascular insufficiency of bilateral lower extremities.? He has negative about neuromodulation. [facility] Medical History BPH (benign prostatic hyperplasia) Bronchiectasis Chronic pain syndrome Compression fracture of L1 lumbar vertebra Controlled type 2 diabetes mellitus with diabetic nephropathy, without long-term current use of insulin COPD (chronic obstructive pulmonary disease) COPD (chronic obstructive pulmonary disease) Diabetic polyneuropathy Gastric carcinoma History of gastric cancer Hyperlipidemia LDL goal <70 Joint pain Lumbar spondylosis Moderate aortic stenosis Peripheral vascular disease Peripheral vascular disease Pneumonia Postlaminectomy syndrome Recurrent deep vein thrombosis (DVT) Type 2 diabetes mellitus with diabetic polyneuropathy Type 2 diabetes mellitus with hyperglycemia Vitamin B12 deficiency Surgical History Amputation of toe of left foot History of colonoscopy History of gastrectomy Family History Father Diabetes Cancer Mother Diabetes Brother Lung cancer Social History Household Members: None Household Members Other:: lives alone son checks by daily Housing: Apartment Are you a primary certified social workers in health care to a significant other at home: No Do you presently have visiting nurse or other home services: No Alcohol intake: former Year quit: 1969 Patient Tobacco Use Status: Never used Tobacco e-Cigarette/Vaping Use: Never Used Second Hand Smoke Exposure: No service: No Current occupational status: retired Cognitive needs: Yes (walker/power chair) Hearing needs: No Vision needs: Yes (reading) Review of Systems Const All systems reviewed & are unremarkable except as noted in HPI and below ENT Reports Normal hearing present Neuro Reports Normal hearing present and Denies confusion Psych Denies confusion Physical Exam Const General: No confusion Orientation/consciousness: No confusion Neck Neck: Yes full ROM Chest Chest palpation & inspection: normal inspection of the chest Resp Effort & Inspection: normal respiratory effort, able to speak in complete sentences, normal respiratory pattern, no audible wheezes and no cough Cardio Jugular venous distension: no JVD GI Inspection: No distended Palpation (GI): no guarding Back/Spine/Pelvis Other: This is a faint scar in the lower lumbar spine without signs of inflammation or improper healing. Neuro Other: able to transition from sit to stand without assistance ambulates without assistance General: No confusion Cranial nerves: Yes Normal hearing present Gait exam (Neuro): Normal gait present Psych Appearance: grossly normal Mental Status: mental status grossly normal Speech and movement: Normal speech and movement present and Clear speech present Affect: normal affect Attitude: cooperative Assessment & Plan Assessment & Plan (1) Peripheral vascular disease: Comment: Left lower extremity vascular occluded on Left dorsalis pedis significant disease January 2021 Code(s): I73.9 - Peripheral vascular disease, unspecified (2) Controlled type 2 diabetes mellitus with diabetic nephropathy, without long-term current use of insulin: Code(s): E11.21 - Type 2 diabetes mellitus with diabetic nephropathy (3) Diabetic polyneuropathy: Code(s): E11.42 - Type 2 diabetes mellitus with diabetic polyneuropathy (4) Postlaminectomy syndrome: Code(s): M96.1 - Postlaminectomy syndrome, not elsewhere classified (5) Chronic pain syndrome: Code(s): G89.4 - Chronic pain syndrome Plan This patient is suffering from significant peripheral lower extremity arterial disease and post laminectomy syndrome. He is on chronic opioid therapy and continues to decline neuromodulation. Masspat was reviewed and without concerns. No obvious signs of diversion, abuse or misuse of the opioid medications. Will send in prescription for oxycodone/acetaminophen 5-325 mg BID with an advanced date of 10/23/2022. Follow up with pcp for abdominal pain, go to the ER for sudden/severe pain, intractable vomiting or concerning symptoms. C/W prune juice daily for constipation. Patient to follow-up in the office in 1 month, sooner if needed. All questions and concerns have been answered and patient agrees with the plan. Medications: Refilled oxycodone-acetaminophen 5-325 mg Partial Fill only upon patient request. 1 tab PO Q8H 30 days PRN 90 tabs 0RF pain M47.816 - Spondylosis without myelopathy or radiculopathy, lumbar region Coding Level of Care Code Est Pt Level 3 (08149) Diagnoses Peripheral vascular disease I73.9 Controlled type 2 diabetes mellitus with diabetic nephropathy, without long-term current use of insulin E11.21 Diabetic polyneuropathy E11.42 Postlaminectomy syndrome M96.1 Chronic pain syndrome G89.4
[2022-10-01 11:16] VITALS: BP 126/66; PULSE 70; RESP 14; O2SAT 97; BMI 23.5
== END 2022-10-01 11:21 | disposition home or self-care (01) ==
PROVIDERS: PCP Internal Medicine; Visit Provider Registered Nurse Emergency
DX: I73.9 Peripheral vascular disease, unspecified (principal); E11.21 Type 2 diabetes mellitus with diabetic nephropathy; E11.42 Type 2 diabetes mellitus with diabetic polyneuropathy; M96.1 Postlaminectomy syndrome, not elsewhere classified; G89.4 Chronic pain syndrome
CPT/HCPCS: 99213

== ENCOUNTER → 2022-10-01 11:06 | Outpatient (BNVA) | payer MEDICARE, MEDICAID, SELFPAY | PROVIDERS: PCP Internal Medicine; Visit Provider Registered Nurse Emergency | DX: Z51.81 Encounter for therapeutic drug level monitoring (principal); F11.20 Opioid dependence, uncomplicated; M96.1 Postlaminectomy syndrome, not elsewhere classified; I73.9 Peripheral vascular disease, unspecified; E11.21 Type 2 diabetes mellitus with diabetic nephropathy; E11.42 Type 2 diabetes mellitus with diabetic polyneuropathy; G89.4 Chronic pain syndrome | CPT/HCPCS: 99212 ==

== ENCOUNTER 2022-10-13 11:29 | Outpatient (AMB) | payer MEDICARE, MEDICAID, SELFPAY ==
--- NOTE | 2022-10-13 11:37 | MHC.OFFVISCO ---
Intake Intake Visit Reasons: Anticoagulation Allergies No Known Allergies Allergy (Mild, Verified 10/13/22 11:33) NOT APPLICABLE Medication List - Last Reconciled 10/13/22 by Francheska Chung RN amlodipine 10 mg PO DAILY 90 days ascorbic acid (vitamin C) 1 g PO DAILY atorvastatin 40 mg PO DAILY blood sugar diagnostic ([employer]Touch Verio test strips) one time daily blood-glucose meter ([employer] Verio Meter) To check blood glucose once daily cholecalciferol (vitamin D3) 25 mcg PO DAILY cilostazol 100 mg PO BID cyanocobalamin (vitamin B-12) (Vitamin B-12) 250 mcg PO DAILY ferrous sulfate (FeroSul) 325 mg PO BID fluticasone propionate 50 mcg/actuation 2 sprays intranasal DAILY gabapentin 300 mg PO DAILY 90 days [garlic clove 1 dose PO NEEDED] ipratropium-albuterol 0.5 mg-3 mg(2.5 mg base)/3 mL 3 mL inhalation Q6H lancets ([employer] Delica Plus Lancet) To test bg daily lancets As directed metformin 500 mg PO DAILY metoprolol succinate ER 25 mg PO DAILY naloxone 4 mg/actuation (Narcan) 4 mg intranasal Q2M 1 day oxycodone-acetaminophen 5-325 mg 1 tab PO Q8H PRN 30 days Symbicort 160-4.5 mcg/actuation (budesonide-formoterol) 2 puffs PO BID NS Ventolin HFA 90 mcg/actuation (albuterol sulfate) 2 puffs inhalation Q4-6H PRN NS walker (Ultra-Light Rollator misc) As directed, ambulate at all times with walker warfarin 5 mg See Protocol PO DAILY warfarin 2.5 mg See Protocol PO DAILY 90 days Nursing Note INR: 2.0= in therapeutic range Medications and supplements reviewed No changes in health, diet, medications, or supplements, Denies any signs and symptoms of bleeding or bruising or clotting. Bleeding, bruising, clotting discussed Nutritional guidance given- no greens for 2 days, eat a red today Dose: 5mg x 6, 2.5mg x 1 F/U INR: 2 weeks Patient and son verbalizes understanding of instructions given Anti-Coag Initial Assessment Social Hx Patient Tobacco Use Status: Never used Tobacco alcohol intake: former Alcohol intake frequency: does not drink Coding Level of Care Code Est Patient Level 1 Diagnoses Current use of anticoagulant therapy Z79.01 Assessment & Plan Assessment & Plan (1) Current use of anticoagulant therapy: Code(s): Z79.01 - [facility] (current) 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
[2022-10-13 11:38] LABS: Prothrombin Time Whole Bld POC 24.6 sec (11.1-13.5)
== END 2022-10-13 11:42 | disposition home or self-care (01) ==
LOC: HO.ACS 11:29
PROVIDERS: PCP Internal Medicine; Visit Provider Internal Medicine
DX: Z79.01 Long term (current) use of anticoagulants (principal)

== ENCOUNTER → 2022-10-13 11:29 | Outpatient (BNVA) | payer MEDICARE, MEDICAID, SELFPAY | PROVIDERS: PCP Internal Medicine; Visit Provider Internal Medicine | DX: I82.503 Chronic embolism and thrombosis of unspecified deep veins of lower extremity, bilateral (principal); Z79.01 Long term (current) use of anticoagulants; Z51.81 Encounter for therapeutic drug level monitoring | CPT/HCPCS: 85610; 99211 ==

== ENCOUNTER 2022-10-28 13:00 | Outpatient (AMB) | payer MEDICARE, MEDICAID, SELFPAY ==
[2022-10-28 13:14] LABS: Prothrombin Time Whole Bld POC 36.8 sec (11.1-13.5); ~PT, ~INR - Anti Coag Clinic 3.1 (0.9-1.1)
--- NOTE | 2022-10-28 13:20 | MHC.OFFVISCO ---
Intake Intake Visit Reasons: Anticoagulation Allergies No Known Allergies Allergy (Mild, Verified 10/28/22 13:05) NOT APPLICABLE Medication List - Last Reconciled 10/28/22 by Isabela Freeman RN amlodipine 10 mg PO DAILY 90 days ascorbic acid (vitamin C) 1 g PO DAILY atorvastatin 40 mg PO DAILY blood sugar diagnostic ([employer] Verio test strips) one time daily blood-glucose meter ([employer] Verio Meter) To check blood glucose once daily cholecalciferol (vitamin D3) 25 mcg PO DAILY cilostazol 100 mg PO BID cyanocobalamin (vitamin B-12) (Vitamin B-12) 250 mcg PO DAILY ferrous sulfate (FeroSul) 325 mg PO BID fluticasone propionate 50 mcg/actuation 2 sprays intranasal DAILY gabapentin 300 mg PO DAILY 90 days [garlic clove 1 dose PO NEEDED] ipratropium-albuterol 0.5 mg-3 mg(2.5 mg base)/3 mL 3 mL inhalation Q6H lancets ([employer] Delica Plus Lancet) To test bg daily lancets As directed metformin 500 mg PO DAILY metoprolol succinate ER 25 mg PO DAILY naloxone 4 mg/actuation (Narcan) 4 mg intranasal Q2M 1 day oxycodone-acetaminophen 5-325 mg 1 tab PO Q8H PRN 30 days Symbicort 160-4.5 mcg/actuation (budesonide-formoterol) 2 puffs PO BID NS Ventolin HFA 90 mcg/actuation (albuterol sulfate) 2 puffs inhalation Q4-6H PRN NS walker (Ultra-Light Rollator misc) As directed, ambulate at all times with walker warfarin 5 mg See Protocol PO DAILY warfarin 2.5 mg See Protocol PO DAILY 90 days Nursing Note NO CP,SOB,DIET/MED CHABGES,FALLS OR SX OF BLEEDING. CONTINUE PRESENT DOSE AND FOLLOW-UP IN 2 WEEKS. [place] TODAY GOOD UNDERSTANDING OF FOSING INSTR. Anti-Coag Initial Assessment Social Hx Patient Tobacco Use Status: Never used Tobacco alcohol intake: former Alcohol intake frequency: does not drink Coding Level of Care Code Est Patient Level 1 Diagnoses Current use of anticoagulant therapy Z79.01 Assessment & Plan Assessment & Plan (1) Current use of anticoagulant therapy: Code(s): Z79.01 - assisted (current) 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
== END 2022-10-28 13:21 | disposition home or self-care (01) ==
LOC: HO.ACS 13:00
PROVIDERS: PCP Internal Medicine; Visit Provider Internal Medicine
DX: Z79.01 Long term (current) use of anticoagulants (principal)

== ENCOUNTER → 2022-10-28 13:00 | Outpatient (BNVA) | payer MEDICARE, MEDICAID, SELFPAY | PROVIDERS: PCP Internal Medicine; Visit Provider Internal Medicine | DX: I82.503 Chronic embolism and thrombosis of unspecified deep veins of lower extremity, bilateral (principal); Z79.01 Long term (current) use of anticoagulants; Z51.81 Encounter for therapeutic drug level monitoring | CPT/HCPCS: 85610; 99211 ==

== ENCOUNTER → 2022-10-29 10:47 | Outpatient (BNVA) | payer MEDICARE, MEDICAID, SELFPAY | PROVIDERS: PCP Internal Medicine; Visit Provider Registered Nurse Emergency | DX: Z51.81 Encounter for therapeutic drug level monitoring (principal); F11.20 Opioid dependence, uncomplicated | CPT/HCPCS: 99211 ==

== ENCOUNTER 2022-10-29 11:24 | Emergency (ER) | payer MEDICARE, MEDICAID, SELFPAY ==
--- NOTE | ~2022-10-29 | XR_ITS ---
EXAMINATION: XR CHEST CLINICAL INFORMATION: Weakness. COMPARISON: 10/02/2021 chest radiograph. TECHNIQUE: 2 views of the chest were obtained. FINDINGS: No significant abnormality is noted involving the heart, lungs, mediastinum, bony thorax or soft tissues. XR/XR chest 2V IMPRESSION: No acute cardiopulmonary process.
[2022-10-29 11:30] VITALS: BP 105/53; PULSE 77; RESP 17; TEMP 36.6; O2SAT 97; BMI 23.6
--- NOTE | 2022-10-29 11:31 | ECG_ITS ---
Test Reason : pain Blood Pressure : / mmHG Vent. Rate : 067 BPM Atrial Rate : 067 BPM P-R Int : 208 ms QRS Dur : 100 ms QT Int : 394 ms P-R-T Axes : 063 -45 015 degrees QTc Int : 416 ms Sinus rhythm with Premature supraventricular complexes Left anterior fascicular block Moderate voltage criteria for LVH, may be normal variant ( R in aVL , [place] product ) Abnormal ECG When compared with ECG of 02-OCT-2021 13:00, Premature supraventricular complexes are now Present Referred By: King Ojeda Electronically Signed By:CHRIS MILLER
--- NOTE | 2022-10-29 11:32 | ED.GENADULT ---
HPI - General Adult General Chief complaint: General Medical Stated complaint: low blood pressure Time Seen by Provider: 10/29/22 13:00 Source: patient and family Mode of arrival: ambulatory Limitations: no limitations History of Present Illness HPI narrative: Patient comes to the emergency room complaining of low blood pressure. Patient states that he feels well. He went to his appointment to the pain clinic, the pressure was 99 systolic, he was sent to the emergency room for further evaluation. Patient states that he feels well, been a bit tired for the last couple of days. Patient denies any nausea vomiting or diarrhea, no fever chills. Patient states that couple of hours ago he took Percocet which is being prescribed to him for chronic pain. This time, patient denies chest pain or shortness of breath, no lightheadedness. Related Data Home Medications Medication Instructions Recorded Confirmed lancets 28 gauge #100 ea 01/03/20 10/29/22 ascorbic acid (vitamin C) 1,000 mg 1 g PO DAILY 01/27/20 10/29/22 tablet cholecalciferol (vitamin D3) 25 25 mcg PO DAILY 01/27/20 10/29/22 mcg (1,000 unit) capsule ferrous sulfate 325 mg (65 mg 325 mg PO BID 01/27/20 10/29/22 iron) tablet (FeroSul) garlic clove 1 dose PO NEEDED 04/25/22 10/29/22 metoprolol succinate 25 mg 25 mg PO DAILY 05/16/22 10/29/22 tablet,extended release 24 hr Previous Rx's Medication Instructions Recorded naloxone 4 mg/actuation nasal 4 mg intranasal Q2M 1 day #2 ea 05/17/20 spray (Narcan) Ventolin HFA 90 mcg/actuation 2 puff inhalation Q4-6H PRN for 08/13/20 aerosol inhaler (albuterol sulfate) wheezing #54 grams walker (Ultra-Light Rollator misc) #1 ea 06/11/21 ipratropium 0.5 mg-albuterol 3 mg 3 ml inhalation Q6H #180 mL 07/22/21 (2.5 mg base)/3 mL nebulization soln warfarin 5 mg tablet 5 mg PO DAILY #90 tabs 10/31/21 blood-glucose meter (OneTouch #1 ea 12/25/21 Verio Meter) blood sugar diagnostic (OneTouch #50 ea 01/08/22 Verio test strips) lancets 30 gauge (OneTouch Delica #100 ea 01/08/22 Plus Lancet) cilostazol 100 mg tablet 100 mg PO BID #180 tabs 01/10/22 cyanocobalamin (vitamin B-12) 250 250 mcg PO DAILY #90 tabs 05/26/22 mcg tablet (Vitamin B-12) fluticasone propionate 50 2 spray intranasal DAILY #16 grams 05/27/22 mcg/actuation nasal spray,suspension warfarin 2.5 mg tablet 2.5 mg PO DAILY 90 days #90 tabs 05/28/22 atorvastatin 40 mg tablet 40 mg PO DAILY #90 tabs 07/11/22 metformin 500 mg tablet 500 mg PO DAILY #90 tabs 07/11/22 gabapentin 300 mg capsule 300 mg PO DAILY 90 days #90 caps 07/25/22 Symbicort 160 mcg-4.5 2 puff PO BID #30.6 grams 08/22/22 mcg/actuation HFA aerosol inhaler (budesonide-formoterol) amlodipine 10 mg tablet 10 mg PO DAILY 90 days #90 tabs 09/26/22 oxycodone-acetaminophen 5 mg-325 1 tab PO Q8H PRN pain 30 days #90 10/01/22 mg tablet tabs Allergies Allergy/AdvReac Type Severity Reaction Status Date / Time No Known Allergies Allergy Mild NOT Verified 10/29/22 11:46 APPLICABLE Review of Systems Review of Systems: Constitutional : No Weight loss, No Fever, No Chills, No Night Sweats, complain of mild weakness ENT/Mouth : No Hearing loss, No Ear Pain, No Nasal Congestion, No Sinus Pain, No Hoarseness, No sore throat, No Rhinorrhea, No Swallowing Difficulty Eyes: No Eye Pain, No Swelling, No Redness, No Foreign Body, No Discharge, No Vision Changes Cardiovascular : No Chest Pain, No SOB, No Dyspnea on Exertion, No Orthopnea, No Edema, No Palpitations Respiratory : No Cough, No Sputum, No Wheezing, No Smoke Exposure, No Dyspnea Gastrointestinal : No Nausea, No Vomiting, No Diarrhea, No Constipation, No abdominal Pain, No Hematochezia, No Melena Genitourinary : no irregular bleeding, No Dysuria, No Urinary Frequency, No Hematuria, No Urinary Incontinence, No Urgency, No Flank Pain, No Urinary Flow Changes, No Hesitancy Musculoskeletal : Complaining of chronic pain in bilateral lower extremities secondary to DVTs. No joint pain, No Myalgias, No Joint Swelling Skin : No Skin Lesions, No rash Neuro : No Weakness, No Numbness, No Paresthesias, No Loss of Consciousness, No Dizziness, No Headache Psych : No Anxiety/Panic, No Depression, No SI/HI/AH/VH, No Social Issues, Heme/Lymph: No Bruising, No Bleeding,No Lymphadenopathy Endocrine : No Polyuria, No Polydipsia, No Temperature Intolerance [facility] Past Medical History Medical History BPH (benign prostatic hyperplasia) Bronchiectasis Chronic pain syndrome Compression fracture of L1 lumbar vertebra Controlled type 2 diabetes mellitus with diabetic nephropathy, without long-term current use of insulin COPD (chronic obstructive pulmonary disease) COPD (chronic obstructive pulmonary disease) Diabetic polyneuropathy Gastric carcinoma History of gastric cancer Hyperlipidemia LDL goal <70 Joint pain Lumbar spondylosis Moderate aortic stenosis Peripheral vascular disease Peripheral vascular disease Pneumonia Postlaminectomy syndrome Recurrent deep vein thrombosis (DVT) Type 2 diabetes mellitus with diabetic polyneuropathy Type 2 diabetes mellitus with hyperglycemia Vitamin B12 deficiency Surgical History Amputation of toe of left foot History of colonoscopy History of gastrectomy Family History Family History Father Diabetes Cancer Mother Diabetes Brother Lung cancer Social History Social History Household Members: None Household Members Other:: lives alone son checks by daily Housing: Apartment Are you a primary housekeeper caregiver to a significant other at home: No Do you presently have visiting nurse or other home services: No Alcohol intake: former Year quit: 1970 Patient Tobacco Use Status: Never used Tobacco e-Cigarette/Vaping Use: Never Used Second Hand Smoke Exposure: No service: No Current occupational status: retired Cognitive needs: Yes (walker/power chair) Hearing needs: No Vision needs: Yes (reading) Physical Exam ED Vital Signs: Vital Signs - 24 hr 10/29/22 11:30 10/29/22 13:14 10/29/22 13:15 Temperature 98 F Pulse Rate 77 59 60 Respiratory Rate 17 Blood Pressure 105/53 L 115/68 119/71 Pulse Oximetry 97 Oxygen Delivery Method Room Air 10/29/22 13:15 Temperature Pulse Rate 64 Respiratory Rate Blood Pressure 104/65 Pulse Oximetry Oxygen Delivery Method BMI result Body Mass Index 23.6 Const Other: Appearance: Alert. Oriented X3. No acute distress. Eyes: Pupils equal, round and reactive to light. ENT: Pharynx normal. Neck: Normal inspection. Neck supple. No lymph nodes noted. No crepitus CVS: Normal heart rate and rhythm. Pulses normal. Normal S1 and S2 Respiratory: No respiratory distress. Breath sounds normal. No Wheezing. No rales Abdomen: Soft and nontender. No rigidity. No distention. Skin: Skin warm and dry. Normal skin color. Normal skin turgor. Extremities: No lower extremity edema. No Lacerations. No Rash Neuro: Oriented X 3. No motor deficit. No sensory deficit. Moving all extremities. No slurred speech. CN 2 through 12 grossly intact Psych: calm, cooperative, normal affect Course Course Course Narrative: RME- patient is primarily Armenian-speaking, presents for evaluation of ?low blood pressure. Patient presents from a pain management appointment where he was on a blood pressure of 99/55. In triage his blood pressure is 105/53. He complains of generalized weakness since yesterday. Plan for labs, UA, chest x-ray. Patient complains of chronic knee pain but no other pain Medical Decision Making Medical Decision Making [facility] Narrative: -on physical exam, patient's blood pressure 113 systolic. Patient asymptomatic. -my interpretation of labs: Hematology chemistry within normal limits, urinalysis negative for UTI. -my interpretation of EKG: Normal sinus rhythm, frequent PVCs, heart rate 67, C segment depression or elevation, nonspecific T-wave inversion in lead III, QTC 416 -patient's orthostatic vitals are negative, no signs of infection, patient asymptomatic. -is possible that patient may have had low blood pressure after taking Percocet. Patient orthostatic vitals were negative. Patient was asymptomatic the whole time in the emergency room Differential Diagnosis Differential Diagnoses: The differential diagnosis associated with the presentation includes (Orthostatic hypotension, UTI, dehydration) Admission/Observation Consideration of admission/observation: Escalation of care including admission/observation considered (Patient came complaining of low blood pressure, admission was considered) Lab Data [facility] Lab Attestation statement: I reviewed the patient's lab results. 10/29/22 11:46 10/29/22 11:46 Labs: Lab Results 10/29/22 10/29/22 10/29/22 Range/Units 11:46 11:46 11:46 WBC 6.8 (4.8-10.8) X10*3/uL RBC 3.96 L (4.60-5.80) X10*6/uL Hgb 11.5 L (14.0-18.0) g/dl Hct 36.0 L (42.0-52.0) % MCV 90.9 (80.0-98.0) fL MCH 29.0 (27.0-33.0) pg MCHC 31.9 (31.0-36.0) g/dl RDW 14.7 (11.0-16.0) % Plt Count 148 L (160-400) X10*3/uL MPV 11.4 (9.4-12.4) fL Immature Gran % (Auto) 0.3 (0.0-0.4) % Neut % (Auto) 67.7 (45-73) % Lymph % (Auto) 17.8 L (20-40) % [place] % (Auto) 8.7 (2-11) % Eos % (Auto) 5.2 H (0-4) % Baso % (Auto) 0.3 (0-2) % Lymph # (Auto) 1.2 (1.2-4.9) X10*3/uL [place] # (Auto) 0.6 (0.1-1.2) X10*3/uL Eos # (Auto) 0.4 (0.0-0.4) X10*3/uL Baso # (Auto) 0.0 (0.0-0.2) X10*3/uL Abs Immat Gran (auto) 0.02 (0.00-0.03) X10*3/uL Absolute Neuts (auto) 4.6 (2.0-8.3) x10*3/uL Absolute Nucleated RBC 0.000 (0.0-0.012) X10*3/uL Nucleated RBC % (auto) 0.0 (0.0-0.2) /100WBC Sodium 140 (135-145) mmol/L Potassium 4.0 (3.3-5.1) mmol/L Chloride 110 H (96-108) mmol/L Carbon Dioxide 24 (22-29) mmol/L Anion Gap 10 L (12-20) BUN 20 H (9-16) mg/dL Creatinine 1.39 (0.5-1.4) mg/dL Estim Creat Clear Calc 40.8 Estimated GFR 49 Random Glucose 186 H (60-115) mg/dL Calcium 9.7 D (8.4-10.2) mg/dL Total Bilirubin 0.7 (0.0-1.0) mg/dL AST 14 (5-37) U/L ALT 12 (0-40) U/L Alkaline Phosphatase 87 (39-117) U/L Total Protein 6.5 (6.5-8.0) g/dL Albumin 4.1 (3.5-5.0) g/dL Lipase 7 L (8-78) U/L Urine Color Yellow Urine Appearance Clear Urine pH 5.5 (5.0-9.0) Ur Specific Golf 1.015 (1.005-1.025) Urine Protein Negative (Neg-Trace) mg/dL Urine Glucose (UA) Negative (Negative) mg/dL Urine Ketones Negative (Negative) mg/dL Urine Blood Negative (Negative) Urine Nitrite Negative (Negative) Ur Leukocyte Esterase Negative (Negative) Urine RBC 0-2 (0-2) /HPF Urine WBC 0-5 (0-5) /HPF Ur Squamous Epith Cells 0-2 (0-2) /HPF Urine Bacteria None Seen (None Seen) Hyaline Casts 0-2 (0-2) /LPF Independent Interpretation I performed an independent interpretation of an: EKG and Plain X-Ray (My interpretation of chest x-ray: No infiltrates) Radiology Impression Discussion of test interpretation with radiology: I have reviewed the radiologist's reading. Radiologist Impression: FINDINGS: No significant abnormality is noted involving the heart, lungs, mediastinum, bony thorax or soft tissues. XR/XR chest 2V IMPRESSION: No acute cardiopulmonary process. Independent Historian Clinical information obtained from an independent historian. History obtained from or confirmed by: Other (Patient's son) External Record Review External record reviewed: Office record (I reviewed the patient's pain clinic notes. Patient uses narcotics appropriately.) Chronic Conditions Patient?s care impacted by: Diabetes and Other (DVTs, chronic pain, copd) Discharge Plan Discharge Clinical Impression: Low BP Patient Disposition: Home, Self-Care Instructions: Hypotension (ED) Additional Instructions: Please follow-up with your primary care physician tomorrow. If you have any worsening or new symptoms, please return to the emergency room or call 911 Prescriptions: No Action albuterol sulfate [Ventolin HFA] 90 mcg/actuation HFA aerosol inhaler 2 puff inhalation Q4-6H PRN (Reason: for wheezing) Qty: 54 1RF ipratropium-albuterol 0.5 mg-3 mg(2.5 mg base)/3 mL solution for nebulization 3 ml inhalation Q6H Qty: 180 1RF warfarin 5 mg tablet 5 mg PO DAILY Qty: 90 3RF Protocol: Dose Management Condition: Thursday (Week One) Dose/Route: 5 mg Instruction: 1 x 5 mg tablet Condition: Thursday Dose/Route: 5 mg Instruction: 1 x 5 mg tablet Condition: Thursday Dose/Route: 5 mg Instruction: 1 x 5 mg tablet Condition: Thursday Dose/Route: 2.5 mg Instruction: 1 x 2.5 mg tablet Condition: Dose/Route: 5 mg Instruction: 1 x 5 mg tablet Condition: Thursday Dose/Route: 5 mg Instruction: 1 x 5 mg tablet Condition: Thursday Dose/Route: 5 mg Instruction: 1 x 5 mg tablet Condition: Thursday (Week Two) Dose/Route: 5 mg Instruction: 1 x 5 mg tablet Condition: Thursday Dose/Route: 5 mg Instruction: 1 x 5 mg tablet Condition: Thursday Dose/Route: 5 mg Instruction: 1 x 5 mg tablet Condition: Thursday Dose/Route: 2.5 mg Instruction: 1 x 2.5 mg tablet Condition: Dose/Route: 5 mg Instruction: 1 x 5 mg tablet Condition: Thursday Dose/Route: 5 mg Instruction: 1 x 5 mg tablet Condition: Thursday Dose/Route: 5 mg Instruction: 1 x 5 mg tablet Protocol Text: Adjustment Start Date: Thursday10/28/22 INR Value: 3.1 INR Date: 10/28/22 Recheck Date: 11/11/22 (DME) blood-glucose meter [OneTouch Verio Meter] Misc See Rx Instructions .ROUTE .MEDSUPPLY Qty: 1 0RF Rx Instructions: To check blood glucose once daily (DME) lancets [OneTouch Delica Plus Lancet] 30 gauge misc See Rx Instructions .ROUTE .MEDSUPPLY Qty: 100 3RF Rx Instructions: To test bg daily (DME) OneTouch Verio test strips Strip See Rx Instructions .ROUTE .MEDSUPPLY Qty: 50 11RF Rx Instructions: one time daily cilostazol 100 mg tablet 100 mg PO BID Qty: 180 3RF cyanocobalamin (vitamin B-12) [Vitamin B-12] 250 mcg tablet 250 mcg PO DAILY Qty: 90 3RF fluticasone propionate 50 mcg/actuation spray,suspension 2 spray intranasal DAILY Qty: 16 8RF Rx Instructions: administer into each nostril warfarin 2.5 mg tablet 2.5 mg PO DAILY 90 Days Qty: 90 2RF Protocol: Dose Management Condition: Thursday (Week One) Dose/Route: 5 mg Instruction: 1 x 5 mg tablet Condition: Thursday Dose/Route: 5 mg Instruction: 1 x 5 mg tablet Condition: Thursday Dose/Route: 5 mg Instruction: 1 x 5 mg tablet Condition: Thursday Dose/Route: 2.5 mg Instruction: 1 x 2.5 mg tablet Condition: Dose/Route: 5 mg Instruction: 1 x 5 mg tablet Condition: Thursday Dose/Route: 5 mg Instruction: 1 x 5 mg tablet Condition: Thursday Dose/Route: 5 mg Instruction: 1 x 5 mg tablet Condition: Thursday (Week Two) Dose/Route: 5 mg Instruction: 1 x 5 mg tablet Condition: Thursday Dose/Route: 5 mg Instruction: 1 x 5 mg tablet Condition: Thursday Dose/Route: 5 mg Instruction: 1 x 5 mg tablet Condition: Thursday Dose/Route: 2.5 mg Instruction: 1 x 2.5 mg tablet Condition: Dose/Route: 5 mg Instruction: 1 x 5 mg tablet Condition: Thursday Dose/Route: 5 mg Instruction: 1 x 5 mg tablet Condition: Thursday Dose/Route: 5 mg Instruction: 1 x 5 mg tablet Protocol Text: Adjustment Start Date: Thursday10/28/22 INR Value: 3.1 INR Date: 10/28/22 Recheck Date: 11/11/22 atorvastatin 40 mg tablet 40 mg PO DAILY Qty: 90 3RF metformin 500 mg tablet 500 mg PO DAILY Qty: 90 3RF gabapentin 300 mg capsule 300 mg PO DAILY 90 Days Qty: 90 3RF budesonide-formoterol [Symbicort] 160-4.5 mcg/actuation HFA aerosol inhaler 2 puff PO BID Qty: 30.6 5RF amlodipine 10 mg tablet 10 mg PO DAILY 90 Days Qty: 90 2RF cholecalciferol (vitamin D3) 25 mcg (1,000 unit) capsule 25 mcg PO DAILY ascorbic acid (vitamin C) 1,000 mg tablet 1 g PO DAILY ferrous sulfate [FeroSul] 325 mg (65 mg iron) tablet 325 mg PO BID (DME) Ultra-Light Rollator Misc See Rx Instructions .Route Qty: 1 0RF Rx Instructions: As directed, ambulate at all times with walker Narcan 4 mg/actuation spray,non-aerosol 4 mg intranasal Q2M 1 Days Qty: 2 1RF Rx Instructions: spray 1 dose into ONE nostril; alternate nostrils w each dose until help arrives (DME) lancets 28 gauge misc See Rx Instructions topical DAILY Qty: 100 Rx Instructions: As directed metoprolol succinate 25 mg tablet extended release 24 hr 25 mg PO DAILY garlic clove 1 unit 1 dose PO NEEDED Patient Comments: pt eats one clove of garlic daily oxycodone-acetaminophen 5-325 mg tablet 1 tab PO Q8H PRN (Reason: pain) 30 Days Qty: 90 0RF Rx Instructions: Partial Fill only upon patient request.
[2022-10-29 11:50] LABS: MANUAL DIFF FLAG NO
[2022-10-29 11:53] LABS: Appearance Urine Clear; Color Urine Yellow; Glucose Urine UA Negative (Negative); Leukocyte Esterase Urine Negative (Negative); Nitrite Urine Negative (Negative); PH 5.5 (5.0-9.0); Specific Gravity - Urine 1.015 (1.005-1.025); Urine Blood Negative (Negative); Urine Ketones Negative (Negative); Urine Protein Negative (Neg-Trace)
[2022-10-29 11:58] LABS: Basophils Percent Auto 0.3 % (0-2); Eosinophils Absolute Auto 0.4 X10*3/uL (0.0-0.4); Eosinophils Percent Auto 5.2 % (0-4); Hemoglobin 11.5 g/dl (14.0-18.0); Imm Gran Abs Auto 0.02 X10*3/uL (0.00-0.03); Imm Gran Pct Auto 0.3 % (0.0-0.4); Lymphocytes Absolute Auto 1.2 X10*3/uL (1.2-4.9); Lymphocytes Percent Auto 17.8 % (20-40); Mean Corpuscular HGB Conc 31.9 g/dl (31.0-36.0); Mean Corpuscular Volume 90.9 fL (80.0-98.0); Mean Platelet Volume 11.4 fL (9.4-12.4); Monocytes Absolute Auto 0.6 X10*3/uL (0.1-1.2); Monocytes Percent Auto 8.7 % (2-11); Neutrophils Absolute Auto 4.6 x10*3/uL (2.0-8.3); Neutrophils Percent Auto 67.7 % (45-73); Platelet Count 148 X10*3/uL (160-400); Red Blood Count 3.96 X10*6/uL (4.60-5.80); Red Cell Distribution Width 14.7 % (11.0-16.0); White Blood Count 6.8 X10*3/uL (4.8-10.8)
[2022-10-29 12:01] LABS: Bacteria Urine None Seen (None Seen); Hyaline Casts Urine 0-2 /LPF (0-2); RBC Urine 0-2 /HPF (0-2); Squamous Epithelial Cell Urine 0-2 /HPF (0-2); WBC Urine 0-5 /HPF (0-5)
[2022-10-29 12:05] LABS: Alanine Aminotransferase 12 U/L (0-40); Albumin Level 4.1 g/dL (3.5-5.0); Alkaline Phosphatase 87 U/L (39-117); Anion Gap 10 (12-20); Aspartate Amino Transferase 14 U/L (5-37); Bilirubin Total 0.7 mg/dL (0.0-1.0); Blood Urea Nitrogen 20 mg/dL (9-16); Calcium 9.7 mg/dL (8.4-10.2); Carbon Dioxide 24 mmol/L (22-29); Chloride 110 mmol/L (96-108); Creatinine Clr Calc Pharmacy 40.8; Estimated Glomerular Filt Rate 49; Glucose Random 186 mg/dL (60-115); Lipase 7 U/L (8-78); Sodium 140 mmol/L (135-145); Total Protein 6.5 g/dL (6.5-8.0)
[2022-10-29 13:14] VITALS: BP 115/68; PULSE 59
[2022-10-29 13:15] VITALS: BP 104/65; BP 119/71; PULSE 60; PULSE 64
== END 2022-10-29 14:31 | disposition home or self-care (01) ==
PROVIDERS: Physician Assistant; Emergency Provider Emergency Medicine; PCP Internal Medicine
DX: R07.89 Other chest pain (principal); I95.9 Hypotension, unspecified; Z79.899 Other long term (current) drug therapy
CPT/HCPCS: 36415; 71046; 80053; 81001; 83690; 85025; 93005; 99283

== ENCOUNTER 2022-11-11 13:03 | Outpatient (AMB) | payer MEDICARE, MEDICAID, SELFPAY ==
--- NOTE | 2022-11-11 13:08 | MHC.OFFVISCO ---
Intake Intake Visit Reasons: Anticoagulation Allergies No Known Allergies Allergy (Mild, Verified 11/11/22 13:04) NOT APPLICABLE Medication List - Last Reconciled 11/11/22 by Rakel Ngo RN amlodipine 10 mg PO DAILY 90 days ascorbic acid (vitamin C) 1 g PO DAILY atorvastatin 40 mg PO DAILY blood sugar diagnostic ([employer] Verio test strips) one time daily blood-glucose meter ([employer] Verio Meter) To check blood glucose once daily cholecalciferol (vitamin D3) 25 mcg PO DAILY cilostazol 100 mg PO BID cyanocobalamin (vitamin B-12) (Vitamin B-12) 250 mcg PO DAILY ferrous sulfate (FeroSul) 325 mg PO BID fluticasone propionate 50 mcg/actuation 2 sprays intranasal DAILY gabapentin 300 mg PO DAILY 90 days [garlic clove 1 dose PO NEEDED] ipratropium-albuterol 0.5 mg-3 mg(2.5 mg base)/3 mL 3 mL inhalation Q6H lancets ([employer] Delica Plus Lancet) To test bg daily lancets As directed metformin 500 mg PO DAILY metoprolol succinate ER 25 mg PO DAILY naloxone 4 mg/actuation (Narcan) 4 mg intranasal Q2M 1 day oxycodone-acetaminophen 5-325 mg 1 tab PO Q8H PRN 30 days Symbicort 160-4.5 mcg/actuation (budesonide-formoterol) 2 puffs PO BID NS Ventolin HFA 90 mcg/actuation (albuterol sulfate) 2 puffs inhalation Q4-6H PRN NS walker (Ultra-Light Rollator misc) As directed, ambulate at all times with walker warfarin 5 mg See Protocol PO DAILY warfarin 2.5 mg See Protocol PO DAILY 90 days Nursing Note INR: 2.7 in therapeutic range Medications and supplements reviewed No changes in health, diet, medications, or supplements, Denies any signs and symptoms of bleeding or bruising or clotting. Bleeding, bruising, clotting discussed Nutritional guidance given - eat a mix of fruits and vegetables Dose: 2.5mg x 1 day/ 5mg x 6 days F/U INR: 3 weeks Patient verbalizes understanding of instructions given Anti-Coag Initial Assessment Social Hx Patient Tobacco Use Status: Never used Tobacco alcohol intake: former Alcohol intake frequency: does not drink Coding Level of Care Code Est Patient Level 1 Diagnoses Current use of anticoagulant therapy Z79.01 Assessment & Plan Assessment & Plan (1) Current use of anticoagulant therapy: Code(s): Z79.01 - [facility] (current) 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
[2022-11-11 13:09] LABS: Prothrombin Time Whole Bld POC 32.5 sec (11.1-13.5); ~PT, ~INR - Anti Coag Clinic 2.7 (0.9-1.1)
== END 2022-11-11 13:15 | disposition home or self-care (01) ==
LOC: HO.ACS 13:03
PROVIDERS: PCP Internal Medicine; Visit Provider Internal Medicine
DX: Z79.01 Long term (current) use of anticoagulants (principal)

== ENCOUNTER → 2022-11-11 13:03 | Outpatient (BNVA) | payer MEDICARE, MEDICAID, SELFPAY | PROVIDERS: PCP Internal Medicine; Visit Provider Internal Medicine | DX: I82.503 Chronic embolism and thrombosis of unspecified deep veins of lower extremity, bilateral (principal); Z79.01 Long term (current) use of anticoagulants; Z51.81 Encounter for therapeutic drug level monitoring | CPT/HCPCS: 85610; 99211 ==

== ENCOUNTER 2022-11-26 10:20 | Outpatient (AMB) | payer MEDICARE, MEDICAID, SELFPAY ==
[2022-11-26 10:39] VITALS: BP 120/60; PULSE 66; RESP 18; O2SAT 95
--- NOTE | 2022-11-26 10:39 | MHC.OFFVIS ---
Intake Vital Signs 11/26/22 10:39 Weight 170 lb 4 oz BP 120/60 Blood Pressure Location Lt brachial Position Sitting Respiration 18 Pulse 66 Pulse Source Pulse Oximeter Pulse Oximetry (%) 95 Oxygen Delivery Method Room Air Intake Visit Reasons: Pill count/Confirmed Allergies No Known Allergies Allergy (Mild, Verified 11/26/22 10:41) NOT APPLICABLE HPI HPI Comments History of Present Illness Details Bao is a very pleasant 81-year-old male patient who presents to the office today, accompanied by his son, for follow up chronic pain and chronic opioid therapy management. Patient is prescribed oxyocodone-acetaminophen 5-325mg take 1 tablet three times a day. Patient arrived today with the expectation of having 81 pills, he presented 84 pills which were counted in the presence of two staff members and returned to the patient in the original prescription bottle. This demonstrates responsible attitude toward patient's opioid medications. Pain today is reported today as 8/10 and last dose of pain medication was taken at 06:00 this morning. Pain is adequately managed on current opioid regimen. Patient denies any recent changes or exacerbations of chronic back pain and states he is able to engage in activities of daily living with minimal interruption due to chronic pain. Patient denies side effects including somnolence, weakness, dizziness, nausea or vomiting. Previously: He was under care of Dr. Dunn.? Attempts to convert him to buprenorphine in the form of Bel[place]uca or buprenorphine patch failed. He suffers from postlaminectomy syndrome, he suffers from vascular insufficiency of bilateral lower extremities.? He has negative about neuromodulation. [facility] Medical History BPH (benign prostatic hyperplasia) Bronchiectasis Chronic pain syndrome Compression fracture of L1 lumbar vertebra Controlled type 2 diabetes mellitus with diabetic nephropathy, without long-term current use of insulin COPD (chronic obstructive pulmonary disease) COPD (chronic obstructive pulmonary disease) Diabetic polyneuropathy Gastric carcinoma History of gastric cancer Hyperlipidemia LDL goal <70 Joint pain Lumbar spondylosis Moderate aortic stenosis Peripheral vascular disease Peripheral vascular disease Pneumonia Postlaminectomy syndrome Recurrent deep vein thrombosis (DVT) Type 2 diabetes mellitus with diabetic polyneuropathy Type 2 diabetes mellitus with hyperglycemia Vitamin B12 deficiency Surgical History Amputation of toe of left foot History of colonoscopy History of gastrectomy Family History Father Diabetes Cancer Mother Diabetes Brother Lung cancer Social History Household Members: None Household Members Other:: lives alone son checks by daily Housing: Apartment Are you a primary health and social care teacher to a significant other at home: No Do you presently have visiting nurse or other home services: No Alcohol intake: former Year quit: 1970 Patient Tobacco Use Status: Never used Tobacco e-Cigarette/Vaping Use: Never Used Second Hand Smoke Exposure: No service: No Current occupational status: retired Cognitive needs: Yes (walker/power chair) Hearing needs: No Vision needs: Yes (reading) Review of Systems Const All systems reviewed & are unremarkable except as noted in HPI and below ENT Reports Normal hearing present Neuro Reports Normal hearing present and Denies confusion Psych Denies confusion Physical Exam Vital Signs: Last Vital Signs Pulse 66 11/26/22 10:39 Resp 18 11/26/22 10:39 BP 120/60 11/26/22 10:39 Pulse Ox 95 11/26/22 10:39 Oxygen Delivery Method Room Air 11/26/22 10:39 Const General: No confusion Orientation/consciousness: No confusion Resp Effort & Inspection: normal respiratory effort, able to speak in complete sentences, normal respiratory pattern, no audible wheezes and no cough Cardio Jugular venous distension: no JVD Back/Spine/Pelvis Other: This is a faint scar in the lower lumbar spine without signs of inflammation or improper healing. able to transition from sit to stand without assistance ambulates with use of a cane Neuro General: No confusion Cranial nerves: Yes Normal hearing present Gait exam (Neuro): Normal gait present Psych Appearance: grossly normal Mental Status: mental status grossly normal Speech and movement: Normal speech and movement present and Clear speech present Affect: normal affect Attitude: cooperative Assessment & Plan Assessment & Plan (1) Peripheral vascular disease: Comment: Left lower extremity vascular occluded on Left dorsalis pedis significant disease January 2021 Code(s): I73.9 - Peripheral vascular disease, unspecified (2) Controlled type 2 diabetes mellitus with diabetic nephropathy, without long-term current use of insulin: Code(s): E11.21 - Type 2 diabetes mellitus with diabetic nephropathy (3) Diabetic polyneuropathy: Code(s): E11.42 - Type 2 diabetes mellitus with diabetic polyneuropathy (4) Postlaminectomy syndrome: Code(s): M96.1 - Postlaminectomy syndrome, not elsewhere classified (5) Chronic pain syndrome: Code(s): G89.4 - Chronic pain syndrome Plan This patient is suffering from significant peripheral lower extremity arterial disease and post laminectomy syndrome. He is on chronic opioid therapy and continues to decline neuromodulation. Masspat was reviewed and without concerns. No obvious signs of diversion, abuse or misuse of the opioid medications. Will send in prescription for oxycodone/acetaminophen 5-325 mg BID with an advanced date of 12/23/2022. Patient to follow-up in the office in 1 month, sooner if needed. All questions and concerns have been answered and patient agrees with the plan. Coding Level of Care Code Est Pt Level 3 (10929) Diagnoses Peripheral vascular disease I73.9 Controlled type 2 diabetes mellitus with diabetic nephropathy, without long-term current use of insulin E11.21 Diabetic polyneuropathy E11.42 Postlaminectomy syndrome M96.1 Chronic pain syndrome G89.4
== END 2022-11-26 10:44 | disposition home or self-care (01) ==
PROVIDERS: PCP Internal Medicine; Visit Provider Registered Nurse Emergency
DX: I73.9 Peripheral vascular disease, unspecified (principal); E11.21 Type 2 diabetes mellitus with diabetic nephropathy; E11.42 Type 2 diabetes mellitus with diabetic polyneuropathy; M96.1 Postlaminectomy syndrome, not elsewhere classified; G89.4 Chronic pain syndrome
CPT/HCPCS: 99213

== ENCOUNTER → 2022-11-26 10:20 | Outpatient (BNVA) | payer MEDICARE, MEDICAID, SELFPAY | PROVIDERS: PCP Internal Medicine; Visit Provider Registered Nurse Emergency | DX: Z51.81 Encounter for therapeutic drug level monitoring (principal); F11.20 Opioid dependence, uncomplicated; M96.1 Postlaminectomy syndrome, not elsewhere classified; I73.9 Peripheral vascular disease, unspecified; E11.21 Type 2 diabetes mellitus with diabetic nephropathy; E11.42 Type 2 diabetes mellitus with diabetic polyneuropathy; G89.4 Chronic pain syndrome | CPT/HCPCS: 99212 ==

== ENCOUNTER 2022-12-02 13:03 | Outpatient (AMB) | payer MEDICARE, MEDICAID, SELFPAY ==
[2022-12-02 13:13] LABS: Prothrombin Time Whole Bld POC 43.8 sec (11.1-13.5); ~PT, ~INR - Anti Coag Clinic 3.7 (0.9-1.1)
--- NOTE | 2022-12-02 13:20 | MHC.OFFVISCO ---
Intake Intake Visit Reasons: Anticoagulation Allergies No Known Allergies Allergy (Mild, Verified 12/02/22 13:07) NOT APPLICABLE Medication List - Last Reconciled 12/02/22 by Rakel Ngo RN amlodipine 10 mg PO DAILY 90 days ascorbic acid (vitamin C) 1 g PO DAILY atorvastatin 40 mg PO DAILY blood sugar diagnostic ([employer] Verio test strips) one time daily blood-glucose meter ([employer] Verio Meter) To check blood glucose once daily budesonide-formoterol 160-4.5 mcg/actuation (Symbicort) 2 puffs PO BID cholecalciferol (vitamin D3) 25 mcg PO DAILY cilostazol 100 mg PO BID cyanocobalamin (vitamin B-12) (Vitamin B-12) 250 mcg PO DAILY ferrous sulfate (FeroSul) 325 mg PO BID fluticasone propionate 50 mcg/actuation 2 sprays intranasal DAILY gabapentin 300 mg PO DAILY 90 days [garlic clove 1 dose PO NEEDED] ipratropium-albuterol 0.5 mg-3 mg(2.5 mg base)/3 mL 3 mL inhalation Q6H lancets ([employer] Delica Plus Lancet) To test bg daily lancets As directed metformin 500 mg PO DAILY metoprolol succinate ER 25 mg PO DAILY naloxone 4 mg/actuation (Narcan) 4 mg intranasal Q2M 1 day oxycodone-acetaminophen 5-325 mg 1 tab PO Q8H PRN 30 days Ventolin HFA 90 mcg/actuation (albuterol sulfate) 2 puffs inhalation Q4-6H PRN NS walker (Ultra-Light Rollator misc) As directed, ambulate at all times with walker warfarin 5 mg See Protocol PO DAILY warfarin 2.5 mg See Protocol PO DAILY 90 days Nursing Note INR 3.7 out of therapeutic range Medications and supplements reviewed Patient status: MAY NOT HAVE HAD ENOUGH GREENS Medications or supplements: NO CHANGES Diet: GOOD Denies any signs and symptoms of bleeding or clotting or unusual bruising Bleeding, bruising, clotting discussed Nutritional guidance given: EAT GREENS TODAY AND WEEKLY REVIEW FOOD LIST WEEKLY Dose: TAKE 2.5MG TODAY INSTEAD OF TOMORROW THEN RESUME USUAL DOSE AND EAT GREENS TODAY, 2.5MG X 1 DAY/ 5MG X 6 DAYS F/U INR Date : 3 WEEKS?? Patient verbalizing understanding of instructions given. Anti-Coag Initial Assessment Social Hx Patient Tobacco Use Status: Never used Tobacco alcohol intake: former Alcohol intake frequency: does not drink Coding Level of Care Code Est Patient Level 1 Diagnoses Current use of anticoagulant therapy Z79.01 Assessment & Plan Assessment & Plan (1) Current use of anticoagulant therapy: Code(s): Z79.01 - senior living (current) 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
== END 2022-12-02 13:27 | disposition home or self-care (01) ==
LOC: HO.ACS 13:03
PROVIDERS: PCP Internal Medicine; Visit Provider Internal Medicine
DX: Z79.01 Long term (current) use of anticoagulants (principal)

== ENCOUNTER → 2022-12-02 13:03 | Outpatient (BNVA) | payer MEDICARE, MEDICAID, SELFPAY | PROVIDERS: PCP Internal Medicine; Visit Provider Internal Medicine | DX: I82.503 Chronic embolism and thrombosis of unspecified deep veins of lower extremity, bilateral (principal); Z79.01 Long term (current) use of anticoagulants; Z51.81 Encounter for therapeutic drug level monitoring | CPT/HCPCS: 85610; 99211 ==

== ENCOUNTER 2022-12-08 10:24 | Outpatient (AMB) | payer MEDICARE, MEDICAID, SELFPAY ==
--- NOTE | 2022-12-08 10:34 | MHC.PC.OV ---
Vital Signs 12/08/22 10:37 Height 5 ft 10 in Weight 174 lb BMI 25.0 BP 110/62 Blood Pressure Location Lt brachial Position Sitting Pulse Source Pulse Oximeter Oxygen Delivery Method Room Air Intake Visit Reasons: DM , DVT hx anemia Allergies No Known Allergies Allergy (Mild, Verified 12/02/22 13:07) NOT APPLICABLE Tobacco use date assessed: 12/08/22 Fall risk assessment: No Falls in past year Last assessed Fall Risk: 12/08/22 Dental Screening Dental Screen Date: 12/08/22 Did you have a dental visit in the last 12 months?: No Did you have a dental problem in the last 6 months where you did not have access to dental care?: No HPI DM , DVT hx anemia HPI Details 82-year-old male with controlled diabetes mellitus aortic stenosis last tested March 2022 chronic kidney disease BPH recurrent DVT on anticoagulation hypercholesterolemia and post laminectomy syndrome lumbar. Patient is here for follow-up last seen in August 2022. Review of the notes here visit recently forlow blood pressure problem. Patient also follows up with Pulmonary for the COPD on inhalers otherwise patient has been doing fine with no nausea no vomiting no chest pains no shortness of breath no bowel bladder symptoms. [facility] Medical History BPH (benign prostatic hyperplasia) Bronchiectasis Chronic pain syndrome Compression fracture of L1 lumbar vertebra Controlled type 2 diabetes mellitus with diabetic nephropathy, without long-term current use of insulin COPD (chronic obstructive pulmonary disease) COPD (chronic obstructive pulmonary disease) Diabetic polyneuropathy Gastric carcinoma History of gastric cancer Hyperlipidemia LDL goal <70 Joint pain Lumbar spondylosis Moderate aortic stenosis Peripheral vascular disease Peripheral vascular disease Pneumonia Postlaminectomy syndrome Recurrent deep vein thrombosis (DVT) Type 2 diabetes mellitus with diabetic polyneuropathy Type 2 diabetes mellitus with hyperglycemia Vitamin B12 deficiency Surgical History Amputation of toe of left foot History of colonoscopy History of gastrectomy Family History Father Diabetes Cancer Mother Diabetes Brother Lung cancer Social History Household Members: None Household Members Other:: lives alone son checks by daily Housing: Apartment Are you a primary patient care representative to a significant other at home: No Do you presently have visiting nurse or other home services: No Alcohol intake: former Year quit: 1970 Patient Tobacco Use Status: Never used Tobacco e-Cigarette/Vaping Use: Never Used Second Hand Smoke Exposure: No service: No Current occupational status: retired Cognitive needs: Yes (walker/power chair) Hearing needs: No Vision needs: Yes (reading) Questionnaire Thrive Questionnaire Date Thrive assessed: 04/30/22 AUDIT C Alcohol Use Questionnaire (AUDIT-C) 1. How often do you have a drink containing alcohol?: Never Total Score: 0 Score Reviewed/Action Taken: No SHANNON-7 AMB Questionnaire SHANNON-7 Date SHANNON - 7 assessed: 04/30/22 Source: Developed by Drs. Irwin Adrian, Teresa Pickard, Billy Linda and colleagues, with an educational janina from [employer]. Physical exam (Primary Care) Vital Signs: Last Vital Signs BP 110/62 12/08/22 10:37 Oxygen Delivery Method Room Air 12/08/22 10:37 BMI result Body Mass Index 25.0 Tobacco/Smoking Status: Tobacco use Status Tobacco use date assessed 12/08/22 12/08/22 10:38 Patient Tobacco Use Status Never used Tobacco 12/08/22 10:36 e-Cigarette/Vaping Use Never Used 12/08/22 10:36 Thrive Assessment: Date of Thrive Assessment Date Thrive assessed 04/30/22 12/08/22 10:36 Const General: alert; No acute distress Eyes Conjunctivae: conjunctivae normal Resp Auscultation: clear to auscultation bilaterally Cardio Rate: regular rate Rhythm: regular rhythm GI Inspection: Yes normal to inspection Extrem General: Yes normal to inspection and No edema Office Procedures Flu Questionnaire Does the patient have a severe egg allergy?: No Does the patient have severe life threatening allergies?: No Does the patient have a fever or illness today?: No Has the patient ever had Guillain-Harwood Syndrome?: No Has the patient ever had any past reaction to a flu shot?: No Results AMB Hemoglobin A1c AMB Hemoglobin A1c 5.9 % Last Edit by MARK Cohen on 12/08/22 10:47 Immunizations flu vacc [id number] 6mos up(PF) 60 mcg(15 mcgx4)/0.5 mL IM syringe Performing Provider: Kee Barrientos MD [facility] [place] Administered by: MARK Cohen on 12/08/22 10:40 Dose Route Admin Location Dispensed Lot Number Expiration Date NDC Forming Machine Tender 0.5 mL IM Left Deltoid 0.5 mL [id number] 09/06/23 [id number] [employer] VIS Given Date VIS Provided VIS Publication Date 12/08/22 Single Vaccine 20 Eligibility Eligibility Date Funding Source Not [facility] Eligible 12/08/22 Private Results Reviewed Results Reviewed: Laboratory Last Values Hgb A1c (Clinic) 5.9 % (4.0-6.0) 12/08/22 10:43 Assessment and Plan Assessment & Plan (1) Type 2 diabetes mellitus with hyperglycemia: Code(s): E11.65 - Type 2 diabetes mellitus with hyperglycemia Qualifiers: Diabetes mellitus middle or intermediate school principal insulin use: without middle or intermediate school principal use Qualified Code(s): E11.65 - Type 2 diabetes mellitus with hyperglycemia Plan: Decrease the amount of carbohydrate intake, pasta, bread, rice and potatoes are all sugar and that is aside from all the sweet stuff, remember that fruits are good but they are Sweet also. Hemoglobin A1c goal of less than 7.0. Patient has been under control on metformin 500 mg once a day (2) Moderate aortic stenosis: Comment: August 2019 1.5 cm sq [place] and cardiovascular As August 2021 1.1 cm2, March 2022 1.3 cm2 Code(s): I35.0 - Nonrheumatic aortic (valve) stenosis Plan: March 2022 last echocardiogram. Yearly echocardiogram (3) Chronic kidney disease (CKD) stage G3b/A1, moderately decreased glomerular filtration rate (GFR) between 30-44 mL/min/1.73 square meter and albuminuria creatinine ratio less than 30 mg/g: Code(s): N18.32 - Chronic kidney disease, stage 3b Plan: Keep well hydrated avoid NSAIDs (4) Recurrent deep vein thrombosis (DVT): Comment: Left lower extremity bypass graft Code(s): I82.409 - Acute embolism and thrombosis of unspecified deep veins of unspecified lower extremity Plan: Continue with anticoagulation (5) COPD (chronic obstructive pulmonary disease): Comment: This patient is well known to have chronic obstructive pulmonary disease, moderately severe. He is staying stable with the current medical regimen , except for intermittent increase in cough and mucus production. [place]: Symbicort 160-4.52 puffs b.i.d. Ipratropium-albuterol solution 3 ml in nebulizer Q 4-6 hours t.i.d.and PRN ventolin HFA 2 puffs Q 4-6 hours p.r.n. when outdoors. For cough which seems to be due to nasal congestion an days and then p.r.n. for a few d postnasal discharge, may use Claritin 10 mg once a day for a few days , then PRN . Code(s): J44.9 - Chronic obstructive pulmonary disease, unspecified Qualifiers: COPD type: emphysema Emphysema type: unspecified Qualified Code(s): J43.9 - Emphysema, unspecified Plan: Patient follows up with Pulmonary continuing with the inhalers (6) Essential hypertension: Code(s): I10 - Essential (primary) hypertension Plan: Continue with blood pressure medication. Decrease salt intake and exercise patient had an episode of low blood pressure on metoprolol 25 mg once a day (7) Hyperlipidemia LDL goal <70: Code(s): E78.5 - Hyperlipidemia, unspecified Plan: Avoid fried foods, chicken skin, eggs, butter margarine, pastries and meat. Be it pork or beef they have a lot of cholesterol LDL goal of less than 100 and triglyceride of less than patient's last blood work was December 2021 on atorvastatin 40 mg once a day (8) Postlaminectomy syndrome: Code(s): M96.1 - Postlaminectomy syndrome, not elsewhere classified Plan: Continue to follow-up with pain management Orders: Orders AMB Hemoglobin A1c Today E11.65 - Type 2 diabetes mellitus with hyperglycemia Influenza [id number] Immunization Today Z23 - Encounter for immunization Coding Level of Care Code Est Pt Level 4 (57560) Diagnoses Type 2 diabetes mellitus with hyperglycemia, without long-term current use of insulin E11.65 Diabetes mellitus fci insulin use: without fci use Moderate aortic stenosis I35.0 Chronic kidney disease (CKD) stage G3b/A1, moderately decreased glomerular filtration rate (GFR) between 30-44 mL/min/1.73 square meter and albuminuria creatinine ratio less than 30 mg/g N18.32 Recurrent deep vein thrombosis (DVT) I82.409 Pulmonary emphysema, unspecified emphysema type J43.9 COPD type: emphysema Emphysema type: unspecified Essential hypertension I10 Hyperlipidemia LDL goal <70 E78.5 Postlaminectomy syndrome M96.1
[2022-12-08 10:37] VITALS: BP 110/62; BMI 25.0
== END 2022-12-08 11:17 | disposition home or self-care (01) ==
PROVIDERS: PCP Internal Medicine; Visit Provider Internal Medicine
DX: Z23 Encounter for immunization (principal); E11.65 Type 2 diabetes mellitus with hyperglycemia; I12.9 Hypertensive chronic kidney disease with stage 1 through stage 4 chronic kidney disease, or unspecified chronic kidney disease; N18.32 Chronic kidney disease, stage 3b; I82.409 Acute embolism and thrombosis of unspecified deep veins of unspecified lower extremity
CPT/HCPCS: 83036; 90471; 90686; 99214

== ENCOUNTER 2022-12-23 13:01 | Outpatient (AMB) | payer MEDICARE, MEDICAID, SELFPAY ==
[2022-12-23 13:12] LABS: Prothrombin Time Whole Bld POC 76.3 sec (11.1-13.5); ~PT, ~INR - Anti Coag Clinic 6.4 (0.9-1.1)
--- NOTE | 2022-12-23 13:16 | MHC.OFFVISCO ---
Intake Intake Visit Reasons: Anticoagulation Allergies No Known Allergies Allergy (Mild, Verified 12/23/22 13:05) NOT APPLICABLE Medication List - Last Reconciled 12/23/22 by Francheska Chung RN amlodipine 10 mg PO DAILY 90 days ascorbic acid (vitamin C) 1 g PO DAILY atorvastatin 40 mg PO DAILY blood sugar diagnostic ([employer] Verio test strips) one time daily blood-glucose meter ([employer] Verio Meter) To check blood glucose once daily budesonide-formoterol 160-4.5 mcg/actuation (Symbicort) 2 puffs PO BID cholecalciferol (vitamin D3) 25 mcg PO DAILY cilostazol 100 mg PO BID cyanocobalamin (vitamin B-12) (Vitamin B-12) 250 mcg PO DAILY ferrous sulfate (FeroSul) 325 mg PO BID fluticasone propionate 50 mcg/actuation 2 sprays intranasal DAILY gabapentin 300 mg PO DAILY 90 days [garlic clove 1 dose PO NEEDED] ipratropium-albuterol 0.5 mg-3 mg(2.5 mg base)/3 mL 3 mL inhalation Q6H lancets ([employer] Delica Plus Lancet) To test bg daily lancets As directed metformin 500 mg PO DAILY metoprolol succinate ER 25 mg PO DAILY naloxone 4 mg/actuation (Narcan) 4 mg intranasal Q2M 1 day oxycodone-acetaminophen 5-325 mg 1 tab PO Q8H PRN 30 days Ventolin HFA 90 mcg/actuation (albuterol sulfate) 2 puffs inhalation Q4-6H PRN NS walker (Ultra-Light Rollator misc) As directed, ambulate at all times with walker warfarin 5 mg See Protocol PO DAILY warfarin 2.5 mg See Protocol PO DAILY 90 days Nursing Note INR 6.4-? out of therapeutic range- pt sent to lab inr reported by Erick as 6.5 Medications and supplements reviewed Patient status: pt son states pt not feeling well Medications or supplements: metformin now daily Diet: decreased Denies any signs and symptoms of bleeding or clotting or unusual bruising Bleeding, bruising, clotting discussed - aware at risk for bleeding or bruising, avoid high risk activity Nutritional guidance given: eat greens to lower inr- spinach and brocolli Dose: hold warfarin today and tomm F/U INR Date : thu12/24/22 Patient verbalizing understanding of instructions given. pt amb with canlars, son present for visit pcp dr daniel office called with elev inr/dosing and f/u appt. spoke to pedro at 1407 composed note to pcp Anti-Coag Initial Assessment Social Hx Patient Tobacco Use Status: Never used Tobacco alcohol intake: former Alcohol intake frequency: does not drink Coding Level of Care Code Est Patient Level 2 Diagnoses Current use of anticoagulant therapy Z79.01 Assessment & Plan Assessment & Plan (1) Current use of anticoagulant therapy: Code(s): Z79.01 - buttermaker continuous churn (current) 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 Orders: Orders Prothrombin Time INR Today Z79.01 - jail (current) use of anticoagulants
== END 2022-12-23 14:11 | disposition home or self-care (01) ==
LOC: HO.ACS 13:01
PROVIDERS: PCP Internal Medicine; Visit Provider Internal Medicine
DX: Z79.01 Long term (current) use of anticoagulants (principal)

== ENCOUNTER 2022-12-23 13:01 | Outpatient (REF) | payer MEDICARE, MEDICAID, SELFPAY ==
[2022-12-23 13:52] LABS: Prothrombin Time 78.7 SEC (11.1-13.3)
[2022-12-23 13:58] LABS: INTERNATIONAL NORM RATIO 6.5 (0.9-1.1)
== END 2022-12-23 13:02 | disposition home or self-care (01) ==
LOC: HO.LAB 13:01
PROVIDERS: PCP Internal Medicine; Visit Provider Internal Medicine
DX: I82.503 Chronic embolism and thrombosis of unspecified deep veins of lower extremity, bilateral (principal); Z51.81 Encounter for therapeutic drug level monitoring; Z79.01 Long term (current) use of anticoagulants
CPT/HCPCS: 36415; 85610; 99212

== ENCOUNTER 2022-12-24 13:29 | Outpatient (AMB) | payer MEDICARE, MEDICAID, SELFPAY ==
--- NOTE | 2022-12-24 13:55 | MHC.OFFVISCO ---
Intake Intake Visit Reasons: Anticoagulation Allergies No Known Allergies Allergy (Mild, Verified 12/24/22 13:48) NOT APPLICABLE Nursing Note previous visit pt had not fell for about 1 week with a cold - took robitussin and drank a lot of hot coffee and was not eating much INR 3.3 out of therapeutic range Medications and supplements reviewed Patient status: feeling better still has a little sinus congestion, Medications or supplements: no other changes Diet: good - he ate a lot of spinach and watercress Denies any signs and symptoms of bleeding or clotting or unusual bruising Bleeding, bruising, clotting discussed Nutritional guidance given: eat cooked greens 2 days / week to keep INR in range, and cont to eat a mix of fruits and vegetables Dose: try same dose 2.5mg wed/ 5mg x 6 days F/U INR Date: 12/30/22 same day as pain clinic and f/u appt with Dr Mcarthur ?? Patient verbalizing understanding of instructions given. Anti-Coag Initial Assessment Social Hx Patient Tobacco Use Status: Never used Tobacco alcohol intake: former Alcohol intake frequency: does not drink Coding Level of Care Code Est Patient Level 1 Diagnoses Current use of anticoagulant therapy Z79.01 Results AMB INR Fingerstick AMB INR Fingerstick 2.5 Last Edit by Rakel Ngo RN on 12/24/22 13:59 manual entry AMB INR Fingerstick AMB INR Fingerstick 3.3 Last Edit by Rakel Ngo RN on 12/24/22 14:00 manual entry Assessment & Plan Assessment & Plan (1) Current use of anticoagulant therapy: Code(s): Z79.01 - custodial (current) 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
[2022-12-24 13:56] LABS: ~PT, ~INR - Anti Coag Clinic 3.3 (0.9-1.1)
== END 2022-12-24 14:15 | disposition home or self-care (01) ==
LOC: HO.ACS 13:29
PROVIDERS: PCP Internal Medicine; Visit Provider Internal Medicine
DX: Z79.01 Long term (current) use of anticoagulants (principal)

== ENCOUNTER → 2022-12-24 13:29 | Outpatient (BNVA) | payer MEDICARE, MEDICAID, SELFPAY | PROVIDERS: PCP Internal Medicine; Visit Provider Internal Medicine | DX: I82.503 Chronic embolism and thrombosis of unspecified deep veins of lower extremity, bilateral (principal); Z79.01 Long term (current) use of anticoagulants; Z51.81 Encounter for therapeutic drug level monitoring | CPT/HCPCS: 85610; 99211 ==

== ENCOUNTER 2022-12-30 13:01 | Outpatient (AMB) | payer MEDICARE, MEDICAID, SELFPAY ==
--- NOTE | 2022-12-30 13:04 | A.OFFVIS_ITS ---
Intake Vital Signs 12/30/22 13:05 Height 5 ft 10 in Weight 174 lb BMI 25.0 Blood Pressure Location Lt brachial Position Sitting Respiration 14 Pulse Source Pulse Oximeter Intake Visit Reasons: Pill count Intake Note: Pt states he last tool percocet 12/30/22 @ 6am Allergies No Known Allergies Allergy (Mild, Verified 12/30/22 13:43) NOT APPLICABLE Medication List - Last Reconciled 12/30/22 by Callie Vela LPN amlodipine 10 mg PO DAILY 90 days ascorbic acid (vitamin C) 1 g PO DAILY atorvastatin 40 mg PO DAILY blood sugar diagnostic ([employer] Verio test strips) one time daily blood-glucose meter ([employer] Verio Meter) To check blood glucose once daily budesonide-formoterol 160-4.5 mcg/actuation (Symbicort) 2 puffs PO BID cholecalciferol (vitamin D3) 25 mcg PO DAILY cilostazol 100 mg PO BID cyanocobalamin (vitamin B-12) (Vitamin B-12) 250 mcg PO DAILY ferrous sulfate (FeroSul) 325 mg PO BID fluticasone propionate 50 mcg/actuation 2 sprays intranasal DAILY gabapentin 300 mg PO DAILY 90 days [garlic clove 1 dose PO NEEDED] ipratropium-albuterol 0.5 mg-3 mg(2.5 mg base)/3 mL 3 mL inhalation Q6H lancets ([employer] Delica Plus Lancet) To test bg daily lancets As directed metformin 500 mg PO DAILY metoprolol succinate ER 25 mg PO DAILY naloxone 4 mg/actuation (Narcan) 4 mg intranasal Q2M 1 day oxycodone-acetaminophen 5-325 mg 1 tab PO Q8H PRN 30 days Ventolin HFA 90 mcg/actuation (albuterol sulfate) 2 puffs inhalation Q4-6H PRN NS walker (Ultra-Light Rollator misc) As directed, ambulate at all times with neelima veras warfarin 5 mg See Protocol PO DAILY warfarin 2.5 mg See Protocol PO DAILY 90 days HPI HPI Comments History of Present Illness Details Bao is a very pleasant 81-year-old male patient who presents to the office today, accompanied by his son, for follow up chronic pain and chronic opioid therapy management. Patient is prescribed oxyocodone-acetaminophen 5-325mg take 1 tablet three times a day. Patient arrived today with the expectation of having 63 pills, he presented 63 pills which were counted in the presence of two staff members and returned to the patient in the original prescription bottle. This demonstrates responsible attitude toward patient's opioid medications. Pain today is reported today as 6/10 and last dose of pain medication was taken at 06:00 this morning. Pain is adequately managed on current opioid regimen. Patient denies any recent changes or exacerbations of chronic back pain and states he is able to engage in activities of daily living with minimal interruption due to chronic pain. Patient denies side effects including somnolence, weakness, dizziness, nausea or vomiting. Patient currently drinking prune juice in small amounts daily to aid in digestion. Reports works well, denies any issues with constipation. Previously: He was under care of Dr. Dunn.? Attempts to convert him to buprenorphine in the form of Belbuca or buprenorphine patch failed. He suffers from postlaminectomy syndrome, he suffers from vascular insufficiency of bilateral lower extremities.? He has negative about neuromodulation. [facility] Medical History BPH (benign prostatic hyperplasia) Bronchiectasis Chronic pain syndrome Compression fracture of L1 lumbar vertebra Controlled type 2 diabetes mellitus with diabetic nephropathy, without long-term current use of insulin COPD (chronic obstructive pulmonary disease) COPD (chronic obstructive pulmonary disease) Diabetic polyneuropathy Gastric carcinoma History of gastric cancer Hyperlipidemia LDL goal <70 Joint pain Lumbar spondylosis Moderate aortic stenosis Peripheral vascular disease Peripheral vascular disease Pneumonia Postlaminectomy syndrome Recurrent deep vein thrombosis (DVT) Type 2 diabetes mellitus with diabetic polyneuropathy Type 2 diabetes mellitus with hyperglycemia Vitamin B12 deficiency Surgical History Amputation of toe of left foot History of colonoscopy History of gastrectomy Family History Father Diabetes Cancer Mother Diabetes Brother Lung cancer Social History Household Members: None Household Members Other:: lives alone son checks by daily Housing: Apartment Are you a primary vocational childcare teacher to a significant other at home: No Do you presently have visiting nurse or other home services: No Alcohol intake: former Year quit: 1969 Patient Tobacco Use Status: Never used Tobacco e-Cigarette/Vaping Use: Never Used Second Hand Smoke Exposure: No service: No Current occupational status: retired Cognitive needs: Yes (walker/power chair) Hearing needs: No Vision needs: Yes (reading) Review of Systems Const All systems reviewed & are unremarkable except as noted in HPI and below ENT Reports Normal hearing present Neuro Reports Normal hearing present and Denies confusion Psych Denies confusion Physical Exam Vital Signs: Last Vital Signs Resp 14 12/30/22 13:05 BMI result Body Mass Index 25.0 Const General: No confusion Orientation/consciousness: No confusion Resp Effort & Inspection: normal respiratory effort, able to speak in complete sentences, normal respiratory pattern, no audible wheezes and no cough Cardio Jugular venous distension: no JVD Back/Spine/Pelvis Other: This is a faint scar in the lower lumbar spine without signs of inflammation or improper healing. able to transition from sit to stand without assistance ambulates with use of a cane Neuro General: No confusion Cranial nerves: Yes Normal hearing present Gait exam (Neuro): Normal gait present Psych Appearance: grossly normal Mental Status: mental status grossly normal Speech and movement: Normal speech and movement present and Clear speech present Affect: normal affect Attitude: cooperative Assessment & Plan Assessment & Plan (1) Peripheral vascular disease: Comment: Left lower extremity vascular occluded on Left dorsalis pedis significant disease January 2021 Code(s): I73.9 - Peripheral vascular disease, unspecified (2) Controlled type 2 diabetes mellitus with diabetic nephropathy, without long- term current use of insulin: Code(s): E11.21 - Type 2 diabetes mellitus with diabetic nephropathy (3) Diabetic polyneuropathy: Code(s): E11.42 - Type 2 diabetes mellitus with diabetic polyneuropathy (4) Postlaminectomy syndrome: Code(s): M96.1 - Postlaminectomy syndrome, not elsewhere classified (5) Chronic pain syndrome: Code(s): G89.4 - Chronic pain syndrome Plan This patient is suffering from significant peripheral lower extremity arterial disease and post laminectomy syndrome. He is on chronic opioid therapy and continues to decline neuromodulation. Masspat was reviewed and without concerns. No obvious signs of diversion, abuse or misuse of the opioid medications. Will send in prescription for oxycodone/acetaminophen 5-325 mg BID with an advanced date of 01/22/2023. Patient to follow-up in the office in 1 month, sooner if needed. All questions and concerns have been answered and patient agrees with the plan. Medications: Refilled oxycodone-acetaminophen 5-325 mg Partial Fill only upon patient request. 1 tab PO Q8H PRN 90 tabs 0RF pain 30 days M47.816 - Spondylosis without myelopathy or radiculopathy, lumbar region Coding Level of Care Code Est Pt Level 3 (44474) Diagnoses Peripheral vascular disease I73.9 Controlled type 2 diabetes mellitus with diabetic nephropathy, without long-term current use of insulin E11.21 Diabetic polyneuropathy E11.42 Postlaminectomy syndrome M96.1 Chronic pain syndrome G89.4
[2022-12-30 13:05] VITALS: RESP 14; BMI 25.0
== END 2022-12-30 13:20 | disposition home or self-care (01) ==
PROVIDERS: PCP Internal Medicine; Visit Provider Registered Nurse Emergency
DX: G89.4 Chronic pain syndrome (principal); E11.21 Type 2 diabetes mellitus with diabetic nephropathy; E11.42 Type 2 diabetes mellitus with diabetic polyneuropathy; Z79.891 Long term (current) use of opiate analgesic; M96.1 Postlaminectomy syndrome, not elsewhere classified; I73.9 Peripheral vascular disease, unspecified
CPT/HCPCS: 99213

== ENCOUNTER → 2022-12-30 13:01 | Outpatient (BNVA) | payer MEDICARE, MEDICAID, SELFPAY | PROVIDERS: PCP Internal Medicine; Visit Provider Registered Nurse Emergency | DX: Z51.81 Encounter for therapeutic drug level monitoring (principal); F11.20 Opioid dependence, uncomplicated; I73.9 Peripheral vascular disease, unspecified; E11.21 Type 2 diabetes mellitus with diabetic nephropathy; E11.42 Type 2 diabetes mellitus with diabetic polyneuropathy; M96.1 Postlaminectomy syndrome, not elsewhere classified; G89.4 Chronic pain syndrome; I82.503 Chronic embolism and thrombosis of unspecified deep veins of lower extremity, bilateral; Z79.01 Long term (current) use of anticoagulants | CPT/HCPCS: 85610; 99211; 99212 ==

== ENCOUNTER 2022-12-30 13:37 | Outpatient (AMB) | payer MEDICARE, MEDICAID, SELFPAY ==
--- NOTE | 2022-12-30 13:48 | MHC.OFFVISCO ---
Intake Intake Visit Reasons: Anticoagulation Allergies No Known Allergies Allergy (Mild, Verified 12/30/22 14:23) NOT APPLICABLE Medication List - Last Reconciled 12/30/22 by Francheska Chung RN amlodipine 10 mg PO DAILY 90 days ascorbic acid (vitamin C) 1 g PO DAILY atorvastatin 40 mg PO DAILY blood sugar diagnostic ([employer] Verio test strips) one time daily blood-glucose meter ([employer] Verio Meter) To check blood glucose once daily budesonide-formoterol 160-4.5 mcg/actuation (Symbicort) 2 puffs PO BID cholecalciferol (vitamin D3) 25 mcg PO DAILY cilostazol 100 mg PO BID cyanocobalamin (vitamin B-12) (Vitamin B-12) 250 mcg PO DAILY ferrous sulfate (FeroSul) 325 mg PO BID fluticasone propionate 50 mcg/actuation 2 sprays intranasal DAILY gabapentin 300 mg PO DAILY 90 days [garlic clove 1 dose PO NEEDED] ipratropium-albuterol 0.5 mg-3 mg(2.5 mg base)/3 mL 3 mL inhalation Q6H lancets ([employer] Delica Plus Lancet) To test bg daily lancets As directed metformin 500 mg PO DAILY metoprolol succinate ER 25 mg PO DAILY naloxone 4 mg/actuation (Narcan) 4 mg intranasal Q2M 1 day oxycodone-acetaminophen 5-325 mg 1 tab PO Q8H PRN 30 days Ventolin HFA 90 mcg/actuation (albuterol sulfate) 2 puffs inhalation Q4-6H PRN NS walker (Ultra-Light Rollator misc) As directed, ambulate at all times with walker warfarin 5 mg See Protocol PO DAILY warfarin 2.5 mg See Protocol PO DAILY 90 days Nursing Note INR: 2.5- in therapeutic range of 2.5 Medications and supplements reviewed- no changes No changes in health, diet, medications, or supplements, Denies any signs and symptoms of bleeding or bruising or clotting. Bleeding, bruising, clotting discussed Nutritional guidance given Dose: 5mg x 6, 2.5mg x 1 F/U INR: 2 weeks Patient verbalizes understanding of instructions given Anti-Coag Initial Assessment Social Hx Patient Tobacco Use Status: Never used Tobacco alcohol intake: former Alcohol intake frequency: does not drink Coding Level of Care Code Est Patient Level 1 Diagnoses Current use of anticoagulant therapy Z79.01 Assessment & Plan Assessment & Plan (1) Current use of anticoagulant therapy: Code(s): Z79.01 - [facility] (current) 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
[2022-12-30 13:49] LABS: Prothrombin Time Whole Bld POC 30.3 sec (11.1-13.5); ~PT, ~INR - Anti Coag Clinic 2.5 (0.9-1.1)
== END 2022-12-30 14:33 | disposition home or self-care (01) ==
LOC: HO.ACS 13:37
PROVIDERS: PCP Internal Medicine; Visit Provider Internal Medicine
DX: Z79.01 Long term (current) use of anticoagulants (principal)

== ENCOUNTER 2023-01-13 13:00 | Outpatient (AMB) | payer MEDICARE, MEDICAID, SELFPAY ==
[2023-01-13 13:09] LABS: Prothrombin Time Whole Bld POC 46.3 sec (11.1-13.5); ~PT, ~INR - Anti Coag Clinic 3.9 (0.9-1.1)
--- NOTE | 2023-01-13 13:14 | MHC.OFFVISCO ---
Intake Intake Visit Reasons: Anticoagulation Allergies No Known Allergies Allergy (Mild, Verified 01/13/23 13:03) NOT APPLICABLE Medication List - Last Reconciled 01/13/23 by Rakel Ngo RN amlodipine 10 mg PO DAILY 90 days ascorbic acid (vitamin C) 1 g PO DAILY atorvastatin 40 mg PO DAILY blood sugar diagnostic ([employer] Verio test strips) one time daily blood-glucose meter ([employer] Verio Meter) To check blood glucose once daily budesonide-formoterol 160-4.5 mcg/actuation (Symbicort) 2 puffs PO BID cholecalciferol (vitamin D3) 25 mcg PO DAILY cilostazol 100 mg PO BID cyanocobalamin (vitamin B-12) (Vitamin B-12) 250 mcg PO DAILY ferrous sulfate (FeroSul) 325 mg PO BID fluticasone propionate 50 mcg/actuation 2 sprays intranasal DAILY gabapentin 300 mg PO DAILY 90 days [garlic clove 1 dose PO NEEDED] ipratropium-albuterol 0.5 mg-3 mg(2.5 mg base)/3 mL 3 mL inhalation Q6H lancets ([employer] Delica Plus Lancet) To test bg daily lancets As directed metformin 500 mg PO DAILY metoprolol succinate ER 25 mg PO DAILY naloxone 4 mg/actuation (Narcan) 4 mg intranasal Q2M 1 day oxycodone-acetaminophen 5-325 mg 1 tab PO Q8H PRN 30 days Ventolin HFA 90 mcg/actuation (albuterol sulfate) 2 puffs inhalation Q4-6H PRN NS walker (Ultra-Light Rollator misc) As directed, ambulate at all times with walker warfarin 5 mg See Protocol PO DAILY warfarin 2.5 mg See Protocol PO DAILY 90 days Nursing Note INR: 3.9 in therapeutic range Medications and supplements reviewed had a cold over the weekend with back ache - took otc med better now , INR has been trending upward Denies any signs and symptoms of bleeding or bruising or clotting. 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
== END 2023-01-13 13:16 | disposition home or self-care (01) ==
LOC: HO.ACS 13:00
PROVIDERS: PCP Internal Medicine; Visit Provider Internal Medicine
DX: Z79.01 Long term (current) use of anticoagulants (principal)

== ENCOUNTER → 2023-01-13 13:00 | Outpatient (BNVA) | payer MEDICARE, MEDICAID, SELFPAY | PROVIDERS: PCP Internal Medicine; Visit Provider Internal Medicine | DX: I82.503 Chronic embolism and thrombosis of unspecified deep veins of lower extremity, bilateral (principal); Z79.01 Long term (current) use of anticoagulants; Z51.81 Encounter for therapeutic drug level monitoring | CPT/HCPCS: 85610; 99211 ==

== ENCOUNTER 2023-01-20 12:59 | Outpatient (AMB) | payer MEDICARE, MEDICAID, SELFPAY ==
--- NOTE | 2023-01-20 13:11 | MHC.OFFVISCO ---
Intake Intake Visit Reasons: Anticoagulation Allergies No Known Allergies Allergy (Mild, Verified 01/20/23 13:05) NOT APPLICABLE Medication List - Last Reconciled 01/20/23 by Francheska Chung RN amlodipine 10 mg PO DAILY 90 days ascorbic acid (vitamin C) 1 g PO DAILY atorvastatin 40 mg PO DAILY blood sugar diagnostic ([employer] Verio test strips) one time daily blood-glucose meter ([employer] Verio Meter) To check blood glucose once daily budesonide-formoterol 160-4.5 mcg/actuation (Symbicort) 2 puffs PO BID cholecalciferol (vitamin D3) 25 mcg PO DAILY cilostazol 100 mg PO BID cyanocobalamin (vitamin B-12) (Vitamin B-12) 250 mcg PO DAILY ferrous sulfate (FeroSul) 325 mg PO BID fluticasone propionate 50 mcg/actuation 2 sprays intranasal DAILY gabapentin 300 mg PO DAILY 90 days [garlic clove 1 dose PO NEEDED] ipratropium-albuterol 0.5 mg-3 mg(2.5 mg base)/3 mL 3 mL inhalation Q6H lancets ([employer] Delica Plus Lancet) To test bg daily lancets As directed metformin 500 mg PO DAILY metoprolol succinate ER 25 mg PO DAILY naloxone 4 mg/actuation (Narcan) 4 mg intranasal Q2M 1 day oxycodone-acetaminophen 5-325 mg 1 tab PO Q8H PRN 30 days Ventolin HFA 90 mcg/actuation (albuterol sulfate) 2 puffs inhalation Q4-6H PRN NS walker (Ultra-Light Rollator misc) As directed, ambulate at all times with walker warfarin 5 mg See Protocol PO DAILY warfarin 2.5 mg See Protocol PO DAILY 90 days Nursing Note INR 3.3-?? out of therapeutic range 2-3 Medications and supplements reviewed Patient status: no c.o, amb with cane Medications or supplements: no changes Diet: same Denies any signs and symptoms of bleeding or clotting or unusual bruising Bleeding, bruising, clotting discussed Nutritional guidance given: eat greens to lower Dose: 2.5mg today then 5mg x 5, 2.5mg x 2 F/U INR Date : 2 weeks?? Patient verbalizing understanding of instructions given. Anti-Coag Initial Assessment Social Hx Patient Tobacco Use Status: Never used Tobacco alcohol intake: former Alcohol intake frequency: does not drink Coding Level of Care Code Est Patient Level 1 Diagnoses Current use of anticoagulant therapy Z79.01 Results AMB INR Fingerstick AMB INR Fingerstick 3.3 Last Edit by Francheska Chung RN on 01/20/23 13:13 Assessment & Plan Assessment & Plan (1) Current use of anticoagulant therapy: Code(s): Z79.01 - assisted (current) 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
[2023-01-22 13:34] LABS: ~PT, ~INR - Anti Coag Clinic 3.3 (0.9-1.1)
== END 2023-01-20 13:20 | disposition home or self-care (01) ==
LOC: HO.ACS 12:59
PROVIDERS: PCP Internal Medicine; Visit Provider Internal Medicine
DX: Z79.01 Long term (current) use of anticoagulants (principal)

== ENCOUNTER → 2023-01-20 12:59 | Outpatient (BNVA) | payer MEDICARE, MEDICAID, SELFPAY | PROVIDERS: PCP Internal Medicine; Visit Provider Internal Medicine | DX: I82.503 Chronic embolism and thrombosis of unspecified deep veins of lower extremity, bilateral (principal); Z79.01 Long term (current) use of anticoagulants; Z51.81 Encounter for therapeutic drug level monitoring | CPT/HCPCS: 85610; 99211 ==

== ENCOUNTER 2023-01-23 08:08 | Outpatient (REF) | payer MEDICARE, SELFPAY ==
[2023-01-23 08:25] LABS: MANUAL DIFF FLAG NO
[2023-01-23 08:39] LABS: Basophils Percent Auto 0.4 % (0-2); Eosinophils Absolute Auto 0.4 X10*3/uL (0.0-0.4); Eosinophils Percent Auto 4.2 % (0-4); Hematocrit 33.4 % (42.0-52.0); Hemoglobin 10.7 g/dl (14.0-18.0); Imm Gran Abs Auto 0.03 X10*3/uL (0.00-0.03); Imm Gran Pct Auto 0.4 % (0.0-0.4); Immature Retic Fraction 12.9 % (2.3-13.4); Lymphocytes Absolute Auto 1.5 X10*3/uL (1.2-4.9); Lymphocytes Percent Auto 17.5 % (20-40); Mean Corpuscular Hemoglobin 28.4 pg (27.0-33.0); Mean Corpuscular Volume 88.6 fL (80.0-98.0); Monocytes Absolute Auto 0.6 X10*3/uL (0.1-1.2); Monocytes Percent Auto 7.2 % (2-11); Neutrophils Absolute Auto 5.9 x10*3/uL (2.0-8.3); Neutrophils Percent Auto 70.3 % (45-73); Platelet Count 207 X10*3/uL (160-400); Red Blood Count 3.77 X10*6/uL (4.60-5.80); Red Cell Distribution Width 14.7 % (11.0-16.0); Retic HGB Equivalent 31.6 pg (30.0-35.0); Reticulocyte Percent 1.4 % (0.5-1.8); Reticulocytes Absolute 0.052 X10*6/uL (0.026-0.095); White Blood Count 8.3 X10*3/uL (4.8-10.8)
[2023-01-23 08:50] LABS: Estimated Average Glucose 131 mg/dL; Hemoglobin A1c % 6.2 % (<6.0)
[2023-01-23 09:20] LABS: Alanine Aminotransferase 7 U/L (0-40); Albumin Level 3.8 g/dL (3.5-5.0); Alkaline Phosphatase 90 U/L (39-117); Anion Gap 10 (12-20); Aspartate Amino Transferase 11 U/L (5-37); Bilirubin Total 0.4 mg/dL (0.0-1.0); Blood Urea Nitrogen 16 mg/dL (9-16); Calcium 9.2 mg/dL (8.4-10.2); Carbon Dioxide 28 mmol/L (22-29); Chloride 107 mmol/L (96-108); Cholesterol 106 mg/dL (<200); Estimated Glomerular Filt Rate > 60; Glucose Random 108 mg/dL (60-115); HDL Cholesterol 48 mg/dL (>40); Iron 32 mcg/dL (45-160); LDL Cholesterol Calculated 50 mg/dL (<100); Percent Iron Saturation 19 % (15-50); Potassium 4.2 mmol/L (3.3-5.1); Sodium 141 mmol/L (135-145); Total Iron Binding Capacity 168 mcg/dL (228-428); Total Protein 6.6 g/dL (6.5-8.0); Triglycerides 44 mg/dL (<150); Unsaturated Iron Binding 136 ug/dL
[2023-01-23 09:35] LABS: Folate 13.3 ng/mL (> or = 4.0); Vitamin B12 792 pg/mL (200-900)
[2023-01-23 09:37] LABS: Ferritin 744 ng/mL (20-250); Free T4 (Free Thyroxine) 0.88 ng/dL (0.71-1.85)
[2023-01-23 10:45] LABS: Creatinine Urine 42.52 mg/dL
== END 2023-01-23 08:09 | disposition home or self-care (01) ==
LOC: HO.LAB 08:08
PROVIDERS: PCP Internal Medicine; Visit Provider Internal Medicine
DX: E11.65 Type 2 diabetes mellitus with hyperglycemia (principal); D64.9 Anemia, unspecified; E78.00 Pure hypercholesterolemia, unspecified
CPT/HCPCS: 36415; 80053; 80061; 82570; 82607; 82728; 82746; 83036; 83540; 84439; 84443; 85025; 85045

== ENCOUNTER 2023-01-27 13:00 | Outpatient (AMB) | payer MEDICARE, MEDICAID, SELFPAY ==
[2023-01-27 13:11] VITALS: BP 109/72; PULSE 71; RESP 14; O2SAT 94; BMI 24.8
--- NOTE | 2023-01-27 13:11 | A.OFFVIS_ITS ---
Intake Vital Signs 01/27/23 13:11 Height 5 ft 10 in Weight 173 lb BMI 24.8 BP 109/72 Blood Pressure Location Lt brachial Position Sitting Respiration 14 Pulse 71 Pulse Source Pulse Oximeter Pulse Oximetry (%) 94 Oxygen Delivery Method Room Air Intake Visit Reasons: PILL COUNT/confirmed Allergies No Known Allergies Allergy (Mild, Verified 01/27/23 13:11) NOT APPLICABLE HPI HPI Comments History of Present Illness Details Bao is a very pleasant 82year-old male patient who presents to the office today, accompanied by his son, for follow up chronic pain and chronic opioid therapy management. Patient is prescribed oxyocodone-acetaminophen 5-325mg take 1 tablet three times a day. Patient arrived today with the expectation of having 72 pills, he presented 79 pills which were counted in the presence of two staff members and returned to the patient in the original prescription bottle. This demonstrates responsible attitude toward patient's opioid medications. Pain today is reported today as 9/10 and last dose of pain medication was taken at 08:00 this morning. Pain is adequately managed on current opioid regimen. Pain is worse today d/t the sudden cold weather. He is able to engage in activities of daily living with minimal interruption due to chronic pain. Patient denies side effects including somnolence, weakness, dizziness, nausea or vomiting. Patient currently drinking prune juice in small amounts daily to aid in digestion. Denies current or recent issues with constipation. Previously: He was under care of Dr. Dunn.? Attempts to convert him to buprenorphine in the form of Belbuca or buprenorphine patch failed. He suffers from postlaminectomy syndrome, he suffers from vascular insufficiency of bilateral lower extremities.? He has negative about neuromodulation. [facility] Medical History BPH (benign prostatic hyperplasia) Bronchiectasis Chronic pain syndrome Compression fracture of L1 lumbar vertebra Controlled type 2 diabetes mellitus with diabetic nephropathy, without long-term current use of insulin COPD (chronic obstructive pulmonary disease) COPD (chronic obstructive pulmonary disease) Diabetic polyneuropathy Gastric carcinoma History of gastric cancer Hyperlipidemia LDL goal <70 Joint pain Lumbar spondylosis Moderate aortic stenosis Peripheral vascular disease Peripheral vascular disease Pneumonia Postlaminectomy syndrome Recurrent deep vein thrombosis (DVT) Type 2 diabetes mellitus with diabetic polyneuropathy Type 2 diabetes mellitus with hyperglycemia Vitamin B12 deficiency Surgical History Amputation of toe of left foot History of colonoscopy History of gastrectomy Family History Father Diabetes Cancer Mother Diabetes Brother Lung cancer Household Members: None Household Members Other:: lives alone son checks by daily Housing: Apartment Are you a primary human services care specialist to a significant other at home: No Do you presently have visiting nurse or other home services: No Alcohol intake: former Year quit: 1969 Patient Tobacco Use Status: Never used Tobacco e-Cigarette/Vaping Use: Never Used Second Hand Smoke Exposure: No service: No Current occupational status: retired Cognitive needs: Yes (walker/power chair) Hearing needs: No Vision needs: Yes (reading) Review of Systems Const All systems reviewed & are unremarkable except as noted in HPI and below Physical Exam Vital Signs: Last Vital Signs Pulse 71 01/27/23 13:11 Resp 14 01/27/23 13:11 BP 109/72 01/27/23 13:11 Pulse Ox 94 01/27/23 13:11 Oxygen Delivery Method Room Air 01/27/23 13:11 BMI result Body Mass Index 24.8 General: awake, alert, oriented. Answers questions appropriately. Fully engaged in examination. Skin: warm, dry, intact HEENT: Normocephalic. Hearing intact. Cardiac: External chest normal in appearance. Respiratory: No cough, audible wheezing or stridor. Abdomen: without gross distension. MS: No obvious swelling or deformities. Able to transition from sit to stand unassisted. Ambulates with bilaterally normal heel strike and toe off Neurological: Oriented to person, place, time and situation. Thought process intact. Utilizes a walking stick. Psychiatric: Appropriate mood and affect. Good judgment and insight. Assessment & Plan Assessment & Plan (1) Peripheral vascular disease: Comment: Left lower extremity vascular occluded on Left dorsalis pedis significant disease January 2021 Code(s): I73.9 - Peripheral vascular disease, unspecified (2) Controlled type 2 diabetes mellitus with diabetic nephropathy, without long- term current use of insulin: Code(s): E11.21 - Type 2 diabetes mellitus with diabetic nephropathy (3) Diabetic polyneuropathy: Code(s): E11.42 - Type 2 diabetes mellitus with diabetic polyneuropathy (4) Postlaminectomy syndrome: Code(s): M96.1 - Postlaminectomy syndrome, not elsewhere classified (5) Chronic pain syndrome: Code(s): G89.4 - Chronic pain syndrome Plan This patient is suffering from significant peripheral lower extremity arterial disease and post laminectomy syndrome. He is on chronic opioid therapy and continues to decline neuromodulation. Masspat was reviewed and without concerns. No obvious signs of diversion, abuse or misuse of the opioid medications. Will send in prescription for oxycodone/acetaminophen 5-325 mg BID with an advanced date of 02/21/2023. Patient to follow-up in the office in 1 month, sooner if needed. All questions and concerns have been answered and patient agrees with the plan. Medications: Refilled oxycodone-acetaminophen 5-325 mg Partial Fill only upon patient request. 1 tab PO Q8H 30 days PRN 90 tabs 0RF pain M47.816 - Spondylosis without myelopathy or radiculopathy, lumbar region Coding Level of Care Code Est Pt Level 4 (91697) Diagnoses Peripheral vascular disease I73.9 Controlled type 2 diabetes mellitus with diabetic nephropathy, without long-term current use of insulin E11.21 Diabetic polyneuropathy E11.42 Postlaminectomy syndrome M96.1 Chronic pain syndrome G89.4
== END 2023-01-27 13:15 | disposition home or self-care (01) ==
PROVIDERS: PCP Internal Medicine; Visit Provider Registered Nurse Emergency
DX: G89.4 Chronic pain syndrome (principal); E11.42 Type 2 diabetes mellitus with diabetic polyneuropathy; M96.1 Postlaminectomy syndrome, not elsewhere classified; Z79.891 Long term (current) use of opiate analgesic; I73.9 Peripheral vascular disease, unspecified; E11.21 Type 2 diabetes mellitus with diabetic nephropathy
CPT/HCPCS: 99214

== ENCOUNTER → 2023-01-27 13:00 | Outpatient (BNVA) | payer MEDICARE, MEDICAID, SELFPAY | PROVIDERS: PCP Internal Medicine; Visit Provider Registered Nurse Emergency | DX: G89.4 Chronic pain syndrome (principal); M96.1 Postlaminectomy syndrome, not elsewhere classified; E11.42 Type 2 diabetes mellitus with diabetic polyneuropathy; E11.21 Type 2 diabetes mellitus with diabetic nephropathy; I73.9 Peripheral vascular disease, unspecified; Z79.891 Long term (current) use of opiate analgesic | CPT/HCPCS: 99212 ==

== ENCOUNTER 2023-01-28 10:43 | Outpatient (AMB) | payer OTHER, MEDICAID, SELFPAY ==
--- NOTE | 2023-01-28 10:44 | A.OFFPC_ITS ---
Vital Signs 01/28/23 10:45 Height 5 ft 10 in Weight 164 lb BMI 23.5 BP 100/66 Blood Pressure Location Lt brachial Position Sitting Pulse 74 Pulse Source Pulse Oximeter Pulse Oximetry (%) 97 Oxygen Delivery Method Room Air Intake Visit Reasons: Annual Exam Intake Note: Patient is here today for a physical. 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 Allergies No Known Allergies Allergy (Mild, Verified 01/28/23 10:50) NOT APPLICABLE Medication List - Last Reconciled 01/28/23 by Kee Barrientos MD amlodipine 5 mg PO DAILY 90 days ascorbic acid (vitamin C) 1 g PO DAILY atorvastatin 40 mg PO DAILY blood sugar diagnostic ([employer] Verio test strips) one time daily blood-glucose meter ([employer] Verio Meter) To check blood glucose once daily budesonide-formoterol 160-4.5 mcg/actuation (Symbicort) 2 puffs PO BID cholecalciferol (vitamin D3) 25 mcg PO DAILY cilostazol 100 mg PO BID cyanocobalamin (vitamin B-12) (Vitamin B-12) 250 mcg PO DAILY ferrous sulfate (FeroSul) 325 mg PO BID fluticasone propionate 50 mcg/actuation 2 sprays intranasal DAILY gabapentin 300 mg PO DAILY 90 days [garlic clove 1 dose PO NEEDED] ipratropium-albuterol 0.5 mg-3 mg(2.5 mg base)/3 mL 3 mL inhalation Q6H lancets ([employer] Delica Plus Lancet) To test bg daily lancets As directed metformin 500 mg PO DAILY metoprolol succinate ER 25 mg PO DAILY naloxone 4 mg/actuation (Narcan) 4 mg intranasal Q2M 1 day oxycodone-acetaminophen 5-325 mg 1 tab PO Q8H PRN 30 days Ventolin HFA 90 mcg/actuation (albuterol sulfate) 2 puffs inhalation Q4-6H PRN NS walker (Ultra-Light Rollator misc) As directed, ambulate at all times with walker warfarin 5 mg See Protocol PO DAILY warfarin 2.5 mg See Protocol PO DAILY 90 days Tobacco use date assessed: 01/28/23 Fall risk assessment: No Falls in past year Last assessed Fall Risk: 01/28/23 Dental Screening Dental Screen Date: 01/28/23 Did you have a dental visit in the last 12 months?: Yes Did you have a dental problem in the last 6 months where you did not have access to dental care?: No Was dental information given to patient?: Patient has dentist HPI Annual Exam HPI Details 82-year-old male with controlled diabete s mellitus aortic stenosis chronic kidney disease stage III recurrent DVT on anticoagulation COPD hypertension hypercholesterolemia and a post-laminectomy syndrome on pain medication under pain management. Patient also has a history of peripheral arterial disease occlusion of the left femoral popliteal bypass follows up with vascular surgeon no indications for revascularization needed Patient comes in for physical exam. Patient also follows up with the Hematology Oncology for the history of gastric carcinoma October 2001 status post gastrectomy and had chemotherapy patient follows up with Gastroenterology also as for his anemia stable likely related from subtotal gastrectomy. noted weight loss. apetitte not as good. noted BP low decrease amlodipine to 5 mg PFSH Medical History BPH (benign prostatic hyperplasia) Bronchiectasis Chronic pain syndrome Compression fracture of L1 lumbar vertebra Controlled type 2 diabetes mellitus with diabetic nephropathy, without long-term current use of insulin COPD (chronic obstructive pulmonary disease) COPD (chronic obstructive pulmonary disease) Diabetic polyneuropathy Gastric carcinoma History of gastric cancer Hyperlipidemia LDL goal <70 Joint pain Lumbar spondylosis Moderate aortic stenosis Peripheral vascular disease Peripheral vascular disease Pneumonia Postlaminectomy syndrome Recurrent deep vein thrombosis (DVT) Type 2 diabetes mellitus with diabetic polyneuropathy Type 2 diabetes mellitus with hyperglycemia Vitamin B12 deficiency Surgical History Amputation of toe of left foot History of colonoscopy History of gastrectomy Family History Father Diabetes Cancer Mother Diabetes Brother Lung cancer Household Members: None Household Members Other:: lives alone son checks by daily Housing: Apartment Are you a primary hearing healthcare practitioner to a significant other at home: No Do you presently have visiting nurse or other home services: No Alcohol intake: former Year quit: 1969 Patient Tobacco Use Status: Never used Tobacco e-Cigarette/Vaping Use: Never Used Second Hand Smoke Exposure: No service: No Current occupational status: retired Cognitive needs: Yes (walker/power chair) Hearing needs: No Vision needs: Yes (reading) Questionnaire PHQ-9 Over the last 2 weeks, how often have you been bothered by any of the following problems? 1. Little interest or pleasure in doing things: not at all 2. Feeling down, depressed, or hopeless: not at all 3. Trouble falling or staying asleep, or sleeping too much: not at all 4. Feeling tired or having little energy: not at all 5. Poor appetite or overeating: not at all 6. Feeling bad about yourself - or that you are a failure or have let yourself or your family down: not at all 7. Trouble concentrating on things, such as reading the newspaper or watching television: not at all 8. Moving or speaking so slowly that other people could have noticed. Or the opposite - being so fidgety or restless that you have been moving around a lot more than usual: not at all 9. Thoughts that you would be better off or of hurting yourself in some way: not at all Total score: 0 Depression Screening Interpretation: Negative Depression Screening Done: Yes 36834 - PHQ-9 Billing: Yes Source: Developed by Drs. Irwin Adrian, Teresa Pickard, Billy Linda and colleagues, with an educational janina from [employer]. Thrive Questionnaire Date Thrive assessed: 01/28/23 I am a: Patient What is your living situation today?: I have a steady place to live Within the past 12 months, did the food you bought not last and you didn't have the money to get more?: Never true Within the past 12 months, did you worry whether your food would run out before you got money to buy more?: Never true AUDIT C Alcohol Use Questionnaire (AUDIT-C) 1. How often do you have a drink containing alcohol?: Never Total Score: 0 Score Reviewed/Action Taken: No SHANNON-7 AMB Questionnaire SHANNON-7 Date SHANNON - 7 assessed: 01/28/23 Feeling nervous, anxious, or on edge: 1 = Several days Not being able to stop or control worryin = Not at all Worrying too much about different things: 0 = Not at all Trouble relaxin = Not at all Being so restless that it is hard to sit still: 0 = Not at all Becoming easily annoyed or irritable: 0 = Not at all Feeling afraid as if something awful might happen: 0 = Not at all Total SHANNON-7 score (0-4 normal; 5-9 mild; 10-14 moderate; 15-21 severe): 1 Source: Developed by Drs. Irwin Adrian, Teresa Pickard, Billy Linda and colleagues, with an educational janina from [employer]. Review of Systems Const Denies poor appetite and Denies weakness Eyes Denies no additional complaints ENT Reports Normal hearing present, Denies dizziness, Denies nasal congestion, Denies tinnitus and Denies sore throat Card Denies chest pain, Denies syncope, Denies rapid heart rate and Denies dyspnea Resp Denies cough and Denies dyspnea GI Denies change in stool character, Reports constipation, Denies diarrhea, Denies nausea and Denies vomiting Denies dysuria and Denies urinary frequency Neuro Reports Normal hearing present, Denies confusion, Denies dizziness, Denies syncope and Denies weakness Psych Denies confusion Physical exam (Primary Care) Vital Signs: Last Vital Signs Pulse 74 01/28/23 10:45 BP 100/66 01/28/23 10:45 Pulse Ox 97 01/28/23 10:45 Oxygen Delivery Method Room Air 01/28/23 10:45 BMI result Body Mass Index 23.5 Tobacco/Smoking Status: Tobacco use Status Tobacco use date assessed 01/28/23 01/28/23 10:46 Patient Tobacco Use Status Never used Tobacco 01/28/23 10:45 e-Cigarette/Vaping Use Never Used 01/28/23 10:45 PHQ-9: PHQ-9 Score PHQ-9: Total score 0 01/28/23 10:52 Depression Screening Interpretation: Negative Thrive Assessment: Date of Thrive Assessment Date Thrive assessed 01/28/23 01/28/23 10:52 Const General: No confusion Orientation/consciousness: No confusion HENMT Head: Yes normocephalic Ears: external ears normal and TM's normal bilaterally Face and sinus: Yes normal facial exam Mouth: moist mucous membranes Throat: Yes tonsils normal Eyes Conjunctivae: conjunctivae normal Pupils: Equal, round and reactive pupils present and Pupil accommodation reflex normal Direct Ophthalmoscopy: normal light reflex Neck Neck: No lymphadenopathy Thyroid: Thyroid normal Chest Chest palpation & inspection: normal inspection of the chest Resp Effort & Inspection: normal respiratory effort and no audible wheezes Auscultation: clear to auscultation bilaterally, no crackles, no wheezes and lung sounds not diminished Cardio Rate: regular rate Rhythm: regular rhythm Peripheral pulses: radial pulses present and dorsalis pedis present GI Other: guaiac negative , protzate hard and enlargec Palpation (GI): no masses Auscultation: normal bowel sounds and normoactive bowel sounds Rectal Exam - Male: Yes deferred Male General Exam: Yes normal external exam Skin General skin exam: no rashes or lesions noted Rashes: no rashes Neuro General: No confusion Cranial nerves: Yes Equal, round and reactive pupils present and Yes Normal hearing present Cognition (Neuro): normal cognition Gait exam (Neuro): Normal gait present Motor exam (neuro): 5/5 motor strength present throughout Deep tendon reflexes (DTR's): Right brachioradialis reflex intensity grade: 2+, Left brachioradialis reflex intensity grade: 2+, Right patellar reflex intensity grade: 2+ and Left patellar reflex intensity grade: 2+ Extrem Other: left leg pulsde non palpable, pin prick - cannot feel General: No edema Assessment and Plan Assessment & Plan (1) Annual physical exam: Code(s): Z00.00 - Encounter for general adult medical examination without abnormal findings (2) Type 2 diabetes mellitus with hyperglycemia: Code(s): E11.65 - Type 2 diabetes mellitus with hyperglycemia Qualifiers: Diabetes mellitus senior care insulin use: without senior care use Qualified Code(s): E11.65 - Type 2 diabetes mellitus with hyperglycemia Plan: Decrease the amount of carbohydrate intake, pasta, bread, rice and potatoes are all sugar and that is aside from all the sweet stuff, remember that fruits are good but they are Sweet also. Hemoglobin A1c goal of less than 7.0 patient is on metformin 500 mg once a day (3) Essential hypertension: Code(s): I10 - Essential (primary) hypertension Plan: Continue with blood pressure medication. Decrease salt intake and exercise continues to be on metoprolol 25 mg once a day amlodipine 10 mg once a day (4) Hyperlipidemia LDL goal <70: Code(s): E78.5 - Hyperlipidemia, unspecified Plan: Avoid fried foods, chicken skin, eggs, butter margarine, pastries and meat. Be it pork or beef they have a lot of cholesterol LDL goal of less than 100 and triglyceride of less than 150 takes atorvastatin 40 mg once a day (5) Chronic kidney disease (CKD) stage G3b/A1, moderately decreased glomerular filtration rate (GFR) between 30-44 mL/min/1.73 square meter and albuminuria creatinine ratio less than 30 mg/g: Code(s): N18.32 - Chronic kidney disease, stage 3b Plan: Stable avoid NSAIDs keep well-hydrated (6) Moderate aortic stenosis: Comment: August 2019 1.5 cm sq [place] and cardiovascular As August 2021 1.1 cm2, March 2022 1.3 cm2 Code(s): I35.0 - Nonrheumatic aortic (valve) stenosis Plan: Continue to monitor March 2022 last echocardiogram (7) COPD (chronic obstructive pulmonary disease): Comment: This patient is well known to have chronic obstructive pulmonary disease, moderately severe. He is staying stable with the current medical regimen , except for intermittent increase in cough and mucus production. [place]: Symbicort 160-4.52 puffs b.i.d. Ipratropium-albuterol solution 3 ml in nebulizer Q 4-6 hours t.i.d.and PRN ventolin HFA 2 puffs Q 4-6 hours p.r.n. when outdoors. For cough which seems to be due to nasal congestion an days and then p.r.n. for a few d postnasal discharge, may use Claritin 10 mg once a day for a few days , then PRN . Code(s): J44.9 - Chronic obstructive pulmonary disease, unspecified Qualifiers: COPD type: emphysema Emphysema type: unspecified Qualified Code(s): J43.9 - Emphysema, unspecified Plan: Continue with inhaler as needed (8) Gastric carcinoma: Comment: 2001 gastrectomy Code(s): C16.9 - Malignant neoplasm of stomach, unspecified Plan: Patient follows up with hematology oncology and vascular physician (9) Anemia: Code(s): D64.9 - Anemia, unspecified Plan: Stable continue to monitor (10) Recurrent deep vein thrombosis (DVT): Comment: Left lower extremity bypass graft Code(s): I82.409 - Acute embolism and thrombosis of unspecified deep veins of unspecified lower extremity Plan: Continue with anticoagulation (11) Postlaminectomy syndrome: Code(s): M96.1 - Postlaminectomy syndrome, not elsewhere classified Plan: Continue to follow-up with pain management (12) Hearing difficulty: Code(s): H91.90 - Unspecified hearing loss, unspecified ear (13) Weight loss: Code(s): R63.4 - Abnormal weight loss Orders: Referrals Speech and Hearing Referral H91.90 - Unspecified hearing loss, unspecified ear Medications: Changed From amlodipine 10 mg PO DAILY 90 days 90 tabs 2RF To amlodipine 5 mg PO DAILY 90 days 90 tabs 2RF Coding Level of Care Code Est Pt Prev Care >65y(16126) Diagnoses Annual physical exam Z00.00 Type 2 diabetes mellitus with hyperglycemia, without long-term current use of insulin E11.65 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
[2023-01-28 10:45] VITALS: BP 100/66; PULSE 74; O2SAT 97; BMI 23.5
== END 2023-01-28 11:22 | disposition home or self-care (01) ==
PROVIDERS: Visit Provider Internal Medicine
DX: Z00.00 Encounter for general adult medical examination without abnormal findings (principal); E11.65 Type 2 diabetes mellitus with hyperglycemia; N18.32 Chronic kidney disease, stage 3b; J43.9 Emphysema, unspecified; C16.9 Malignant neoplasm of stomach, unspecified; I82.409 Acute embolism and thrombosis of unspecified deep veins of unspecified lower extremity; I10 Essential (primary) hypertension; E78.5 Hyperlipidemia, unspecified; I35.0 Nonrheumatic aortic (valve) stenosis; D64.9 Anemia, unspecified; M96.1 Postlaminectomy syndrome, not elsewhere classified; R63.4 Abnormal weight loss
CPT/HCPCS: 99397

== ENCOUNTER 2023-02-03 13:17 | Outpatient (AMB) | payer MEDICARE, MEDICAID, SELFPAY ==
--- NOTE | 2023-02-03 13:23 | MHC.OFFVISCO ---
Intake Intake Visit Reasons: Anticoagulation Allergies No Known Allergies Allergy (Mild, Verified 02/03/23 13:18) NOT APPLICABLE Medication List - Last Reconciled 02/03/23 by Francheska Chung RN amlodipine 5 mg PO DAILY 90 days ascorbic acid (vitamin C) 1 g PO DAILY atorvastatin 40 mg PO DAILY blood sugar diagnostic ([employer] Verio test strips) one time daily blood-glucose meter ([employer] Verio Meter) To check blood glucose once daily budesonide-formoterol 160-4.5 mcg/actuation (Symbicort) 2 puffs PO BID cholecalciferol (vitamin D3) 25 mcg PO DAILY cilostazol 100 mg PO BID cyanocobalamin (vitamin B-12) (Vitamin B-12) 250 mcg PO DAILY ferrous sulfate (FeroSul) 325 mg PO BID fluticasone propionate 50 mcg/actuation 2 sprays intranasal DAILY gabapentin 300 mg PO DAILY 90 days [garlic clove 1 dose PO NEEDED] ipratropium-albuterol 0.5 mg-3 mg(2.5 mg base)/3 mL 3 mL inhalation Q6H lancets ([employer] Delica Plus Lancet) To test bg daily lancets As directed metformin 500 mg PO DAILY metoprolol succinate ER 25 mg PO DAILY naloxone 4 mg/actuation (Narcan) 4 mg intranasal Q2M 1 day oxycodone-acetaminophen 5-325 mg 1 tab PO Q8H PRN 30 days Ventolin HFA 90 mcg/actuation (albuterol sulfate) 2 puffs inhalation Q4-6H PRN NS walker (Ultra-Light Rollator misc) As directed, ambulate at all times with walker warfarin 5 mg See Protocol PO DAILY warfarin 2.5 mg See Protocol PO DAILY 90 days Nursing Note INR: 2.6 in therapeutic range of 2-3 Medications and supplements reviewed- amlodipine decreased to 5mg daily No changes in health, diet, medications, or supplements, Denies any signs and symptoms of bleeding or bruising or clotting. Bleeding, bruising, clotting discussed Nutritional guidance given Dose: 2.5mg x 2, 5mg x 5 F/U INR: 2 weeks Patient verbalizes understanding of instructions given pt son present for visit. pt has cardiology appt today Anti-Coag Initial Assessment Social Hx Patient Tobacco Use Status: Never used Tobacco alcohol intake: former Alcohol intake frequency: does not drink Coding Level of Care Code Est Patient Level 1 Results AMB INR Fingerstick AMB INR Fingerstick 2.6 Last Edit by Francheska Chung RN on 02/03/23 13:25
[2023-02-03 13:34] LABS: Prothrombin Time Whole Bld POC 31.1 sec (11.1-13.5); ~PT, ~INR - Anti Coag Clinic 2.6 (0.9-1.1)
== END 2023-02-03 13:32 | disposition home or self-care (01) ==
LOC: HO.ACS 13:17
PROVIDERS: PCP Internal Medicine; Visit Provider Internal Medicine
DX: Z79.01 Long term (current) use of anticoagulants (principal)

== ENCOUNTER → 2023-02-03 13:17 | Outpatient (BNVA) | payer MEDICARE, MEDICAID, SELFPAY | PROVIDERS: PCP Internal Medicine; Visit Provider Internal Medicine | DX: I35.0 Nonrheumatic aortic (valve) stenosis (principal); I82.503 Chronic embolism and thrombosis of unspecified deep veins of lower extremity, bilateral; Z79.01 Long term (current) use of anticoagulants; Z51.81 Encounter for therapeutic drug level monitoring | CPT/HCPCS: 85610; 99202; 99211 ==

== ENCOUNTER 2023-02-03 13:38 | Outpatient (AMB) | payer MEDICARE, MEDICAID, SELFPAY ==
--- NOTE | 2023-02-03 14:16 | MHC.OFFVIS ---
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 Intelligence Director Required: No Accompanied by: Son Allergies No Known Allergies Allergy (Mild, Verified 02/03/23 14:20) NOT APPLICABLE Medication List - Last Reconciled 02/03/23 by Reinaldo Perez MD amlodipine 5 mg PO DAILY 90 days ascorbic acid (vitamin C) 1 g PO DAILY atorvastatin 40 mg PO DAILY blood sugar diagnostic ([employer] Verio test strips) one time daily blood-glucose meter ([employer] Verio Meter) To check blood glucose once daily budesonide-formoterol 160-4.5 mcg/actuation (Symbicort) 2 puffs PO BID cholecalciferol (vitamin D3) 25 mcg PO DAILY cilostazol 100 mg PO BID cyanocobalamin (vitamin B-12) (Vitamin B-12) 250 mcg PO DAILY ferrous sulfate (FeroSul) 325 mg PO BID fluticasone propionate 50 mcg/actuation 2 sprays intranasal DAILY gabapentin 300 mg PO DAILY 90 days [garlic clove 1 dose PO NEEDED] ipratropium-albuterol 0.5 mg-3 mg(2.5 mg base)/3 mL 3 mL inhalation Q6H lancets ([employer] Delica Plus Lancet) To test bg daily lancets As directed metformin 500 mg PO DAILY metoprolol succinate ER 25 mg PO DAILY naloxone 4 mg/actuation (Narcan) 4 mg intranasal Q2M 1 day oxycodone-acetaminophen 5-325 mg 1 tab PO Q8H PRN 30 days Ventolin HFA 90 mcg/actuation (albuterol sulfate) 2 puffs inhalation Q4-6H PRN NS walker (Ultra-Light Rollator misc) As directed, ambulate at all times with walker warfarin 5 mg See Protocol PO DAILY warfarin 2.5 mg See Protocol PO DAILY 90 days HPI HPI Comments History of Present Illness Details Bao is here for consultation regarding aortic stenosis. Currently patient at [facility] but son states that he would like to consolidate his care in [place]. They deny any history of coronary disease myocardial infarction but it seems that he has a history of peripheral vascular disease and prior left fem-pop bypass and goes to [facility] vascular surgery. He gets some random chest pains and not clear if it is anginal but certainly possible. Sometimes arm discomfort as well. No clear shortness of breath. Many comorbidities. Also walks with a cane. Son acts as the interpreter and translator and they signed the form. [facility] Medical History Chronic pain syndrome Postlaminectomy syndrome Diabetic polyneuropathy Gastric carcinoma Peripheral vascular disease Pneumonia Controlled type 2 diabetes mellitus with diabetic nephropathy, without long-term current use of insulin Type 2 diabetes mellitus with diabetic polyneuropathy Hyperlipidemia LDL goal <70 COPD (chronic obstructive pulmonary disease) Type 2 diabetes mellitus with hyperglycemia Vitamin B12 deficiency Bronchiectasis Moderate aortic stenosis Compression fracture of L1 lumbar vertebra Recurrent deep vein thrombosis (DVT) Peripheral vascular disease History of gastric cancer Lumbar spondylosis BPH (benign prostatic hyperplasia) COPD (chronic obstructive pulmonary disease) Joint pain Surgical History History of colonoscopy Amputation of toe of left foot History of gastrectomy Family History Father Diabetes Cancer Mother Diabetes Brother Lung cancer Social History Household Members: None Household Members Other:: lives alone son checks by daily Housing: Apartment Are you a primary child care cook to a significant other at home: No Do you presently have visiting nurse or other home services: No Alcohol intake: former Year quit: 1970 Patient Tobacco Use Status: Never used Tobacco e-Cigarette/Vaping Use: Never Used Second Hand Smoke Exposure: No service: No Current occupational status: retired Cognitive needs: Yes (walker/power chair) Hearing needs: No Vision needs: Yes (reading) Review of Systems Const Denies chills, Denies daytime sleepiness, Denies fatigue, Denies fever(s), Denies frequent falls, Denies night sweats, Denies snoring, Denies weakness, Denies weight gain and Denies weight loss Eyes Denies loss of vision ENT Denies dizziness and Denies hearing loss Card Denies chest pain, Denies chest pain with activity, Denies syncope, Denies rapid heart rate, Denies edema, Denies claudication, Denies leg edema, Denies lightheadedness, Denies palpitations, Denies dyspnea, Denies dyspnea on exertion and Denies orthopnea Resp Denies cough, Denies excessive phlegm production, Denies dyspnea, Denies dyspnea on exertion, Denies snoring and Denies wheezing GI Denies abdominal pain, Denies hematochezia, Denies change in bowel habits, Denies change in stool character, Denies heartburn, Denies nausea and Denies vomiting Denies hematuria, Denies dysuria and Denies urinary frequency Musc Denies arthralgias, Denies muscle weakness, Denies numbness and Denies tingling Skin/Breast Denies nail changes and Denies rash Neuro Denies Abnormal speech present, Denies dizziness, Denies syncope, Denies frequent falls, Denies loss of vision, Denies memory loss, Denies numbness, Denies tingling and Denies weakness Psych Denies depression and Denies memory loss Endo Denies fatigue and Denies palpitations Aller/Immun Denies wheezing Physical Exam Vital Signs: Last Vital Signs Pulse 58 02/03/23 14:18 BP 120/70 02/03/23 14:18 Const General: comfortable and no acute distress Orientation/consciousness: patient oriented x3 HEENT Other: Unremarkable Head: Yes normal to inspection Neck Neck: Yes normal visual inspection Chest Chest palpation & inspection: normal inspection of the chest Resp Auscultation: clear to auscultation bilaterally Cardio Palpation: normal PMI Heart sounds: S1 normal heart sound present, S2 normal heart sound present, no gallops, Murmur heart sound present systolic III/ and at the right sternal border and no rubs GI Palpation (GI): Soft to palpation Back/Spine/Pelvis Other: unremarkable Skin General skin exam: no rashes or lesions noted Neuro General: patient oriented x3 Speech: No Abnormal speech present Extrem General: Yes normal to inspection Psych Mental Status: mental status grossly normal Results AMB INR Fingerstick AMB INR Fingerstick 2.6 Last Edit by Francheska Chung RN on 02/03/23 13:25 Assessment & Plan Assessment & Plan (1) Non-rheumatic aortic stenosis: Code(s): I35.0 - Nonrheumatic aortic (valve) stenosis Plan Recent EKG with sinus rhythm at 67/Min; premature atrial contractions; left ventricular hypertrophy. Last echocardiogram reviewed from March of 2022-peak/mean gradients across aortic valve-49/29. Aortic valve area by continuity equation-1.3 sq cm. There is moderate mitral annular calcification with mild stenosis. Ascending aortic size 4 cm. LVEF 55-60%. Moderate septal hypertrophy. 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 Will repeat his echocardiogram to reassess aortic valve stenosis. Follow-up after the above completed. Discussed with son who came for appointment. Orders: Orders CA echo transthoracic complete Today I35.0 - Nonrheumatic aortic (valve) stenosis Coding Level of Care Code New Pt Level 4 (07974) Diagnoses Non-rheumatic aortic stenosis I35.0
[2023-02-03 14:18] VITALS: BP 120/70; PULSE 58
== END 2023-02-03 14:37 | disposition home or self-care (01) ==
PROVIDERS: PCP Internal Medicine; Visit Provider Internal Medicine
DX: I35.0 Nonrheumatic aortic (valve) stenosis (principal)
CPT/HCPCS: 99204

== ENCOUNTER 2023-02-20 12:57 | Outpatient (AMB) | payer MEDICARE, MEDICAID, SELFPAY ==
--- NOTE | 2023-02-20 13:11 | MHC.OFFVISCO ---
Intake Intake Visit Reasons: Anticoagulation Allergies No Known Allergies Allergy (Mild, Verified 02/03/23 14:20) NOT APPLICABLE Medication List - Last Reconciled 02/20/23 by Fouzia Gilman RN amlodipine 5 mg PO DAILY 90 days ascorbic acid (vitamin C) 1 g PO DAILY atorvastatin 40 mg PO DAILY blood sugar diagnostic ([employer] Verio test strips) one time daily blood-glucose meter ([employer] Verio Meter) To check blood glucose once daily budesonide-formoterol 160-4.5 mcg/actuation (Symbicort) 2 puffs PO BID cholecalciferol (vitamin D3) 25 mcg PO DAILY cilostazol 100 mg PO BID cyanocobalamin (vitamin B-12) (Vitamin B-12) 250 mcg PO DAILY ferrous sulfate (FeroSul) 325 mg PO BID fluticasone propionate 50 mcg/actuation 2 sprays intranasal DAILY gabapentin 300 mg PO DAILY 90 days [garlic clove 1 dose PO NEEDED] ipratropium-albuterol 0.5 mg-3 mg(2.5 mg base)/3 mL 3 mL inhalation Q6H lancets ([employer] Delica Plus Lancet) To test bg daily lancets As directed metformin 500 mg PO DAILY metoprolol succinate ER 25 mg PO DAILY naloxone 4 mg/actuation (Narcan) 4 mg intranasal Q2M 1 day oxycodone-acetaminophen 5-325 mg 1 tab PO Q8H PRN 30 days Ventolin HFA 90 mcg/actuation (albuterol sulfate) 2 puffs inhalation Q4-6H PRN NS walker (Ultra-Light Rollator misc) As directed, ambulate at all times with walker warfarin 5 mg See Protocol PO DAILY warfarin 2.5 mg See Protocol PO DAILY 90 days Nursing Note Amb to [facility], using walking stick, accomp by son, feeling well Medications and supplements reviewed No changes in health, diet, medications, or supplements Denies any unusual signs and symptoms of bruising, bleeding Denies any new Chest pain, SOB, or clotting INR: 4.2 above therapeutic range, sts he had a cold and was taking cough and cold medicine and uzair seltzer, feeling better now Nutritional guidance given: greens over weekend, son sts he plans on giving him salads with raw spinach and brocolli, then balance greens and reds in diet Dose: no warfarin today then resume usual dosing; 2.5mg x 2 days and 5mg x 5 days F/U INR: 1 week Patient verbalizes understanding of instructions given with accurate read back/ teach back of dosing Anti-Coag Initial Assessment Social Hx Patient Tobacco Use Status: Never used Tobacco alcohol intake: former Alcohol intake frequency: does not drink Questionnaires HAS-BLED Does the patient had uncontrolled Hypertension?: No Does the patient have renal disease?: No Does the patient have liver disease?: No Does the patient have a history of stroke?: No Has the patient had major bleeding or predisposition to bleeding?: No Does the patient have labile INRs?: Yes Is the patient over 65 years of age?: Yes Is the patient on medications that gives them a predisposition to bleeding?: Yes Does the patient use alcohol?: No HAS-BLED Score: 3 CHADSVASC Age: 75 or over Gender: Male Does the patient have a history of CHF?: No Does the patient have a history of Hypertension?: Yes Does the patient have a history of Stroke/TIA/Thromboembolism?: Yes Does the patient have a history of Vascular Disease (prior UT, PAD or aortic plaque)?: No Does the patient have a history of Diabetes?: Yes CHADS VACS Score: 6 Umesh Prediction Score Rsk VTE Active Cancer: No Previous VTE, excluding superficial vein thrombosis: Yes Reduced mobility: Yes Already known Thrombophilic Condition: Yes With-in last month Trauma and/or Surgery: No Elderly 70 year or older: Yes Heart and/or Respiratory Failure: No Acute Myocardial infarction and/or Ischemic Stroke: No Acute Infection and/or Rheumatologic Disorder: No Obesity (BMI 30 or greater): No Ongoing Hormonal Treatment: No Score: 10 Umesh Score less than 4; Low Risk of VTE Umesh Score 4 or greater; High Risk of VTE Coding Level of Care Code Est Patient Level 1 Diagnoses Current use of anticoagulant therapy Z79.01 Time Spent (min) 15 Results AMB INR Fingerstick AMB INR Fingerstick 4.2 Last Edit by Fouzia Gilman RN on 02/20/23 13:09 interface failure Assessment & Plan Assessment & Plan (1) Current use of anticoagulant therapy: Code(s): Z79.01 - 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
[2023-02-20 13:23] LABS: Prothrombin Time Whole Bld POC 50.7 sec (11.1-13.5); ~PT, ~INR - Anti Coag Clinic 4.2 (0.9-1.1)
== END 2023-02-20 13:34 | disposition home or self-care (01) ==
LOC: HO.ACS 12:57
PROVIDERS: PCP Internal Medicine; Visit Provider Internal Medicine
DX: Z79.01 Long term (current) use of anticoagulants (principal)

== ENCOUNTER → 2023-02-20 12:57 | Outpatient (BNVA) | payer MEDICARE, MEDICAID, SELFPAY | PROVIDERS: PCP Internal Medicine; Visit Provider Internal Medicine | DX: I82.503 Chronic embolism and thrombosis of unspecified deep veins of lower extremity, bilateral (principal); Z79.01 Long term (current) use of anticoagulants; Z51.81 Encounter for therapeutic drug level monitoring | CPT/HCPCS: 85610; 99211 ==

== ENCOUNTER → 2023-02-24 12:47 | Outpatient (BNVA) | payer MEDICARE, MEDICAID, SELFPAY | PROVIDERS: PCP Internal Medicine; Visit Provider Registered Nurse Emergency | DX: Z51.81 Encounter for therapeutic drug level monitoring (principal); I73.9 Peripheral vascular disease, unspecified; E11.21 Type 2 diabetes mellitus with diabetic nephropathy; E11.42 Type 2 diabetes mellitus with diabetic polyneuropathy; M96.1 Postlaminectomy syndrome, not elsewhere classified; G89.4 Chronic pain syndrome | CPT/HCPCS: 99212 ==

== ENCOUNTER 2023-02-24 12:48 | Outpatient (AMB) | payer MEDICARE, MEDICAID, SELFPAY ==
--- NOTE | 2023-02-24 13:00 | A.OFFVIS_ITS ---
Intake Vital Signs 02/24/23 13:01 Height 5 ft 10 in Weight 164 lb 4 oz BMI 23.6 BP 119/62 Blood Pressure Location Lt brachial Position Sitting Respiration 16 Pulse 70 Pulse Source Pulse Oximeter Pulse Oximetry (%) 96 Oxygen Delivery Method Room Air Intake Visit Reasons: Medication Count/lvm Allergies No Known Allergies Allergy (Mild, Verified 02/24/23 13:00) NOT APPLICABLE HPI HPI Comments History of Present Illness Details Bao is a very pleasant 82year-old male patient who presents to the office today, accompanied by his son, for follow up chronic pain and chronic opioid therapy management. Patient is prescribed oxyocodone-acetaminophen 5-325mg take 1 tablet three times a day. Patient arrived today with the expectation of having 78 pills, he presented 81 pills which were counted in the presence of two staff members and returned to the patient in the original prescription bottle. This demonstrates responsible attitude toward patient's opioid medications. Pain today is reported today as 8/10 and last dose of pain medication was taken at 4 o'clock this morning. Pain is adequately managed on current opioid regimen. He is able to engage in activities of daily living with minimal interruption due to chronic pain. Patient denies side effects including somnolence, weakness, dizziness, nausea or vomiting. Patient continues with prune juice in small amounts daily to aid in digestion. Denies any recent issues with constipation. Previously: He was under care of Dr. Dunn.? Attempts to convert him to buprenorphine in the form of Bel[place] or buprenorphine patch failed. He suffers from postlaminectomy syndrome, he suffers from vascular insufficiency of bilateral lower extremities.? He has negative about neuromodulation. [facility] Medical History Chronic pain syndrome Postlaminectomy syndrome Diabetic polyneuropathy Gastric carcinoma Peripheral vascular disease Pneumonia Controlled type 2 diabetes mellitus with diabetic nephropathy, without long-term current use of insulin Type 2 diabetes mellitus with diabetic polyneuropathy Hyperlipidemia LDL goal <70 COPD (chronic obstructive pulmonary disease) Type 2 diabetes mellitus with hyperglycemia Vitamin B12 deficiency Bronchiectasis Moderate aortic stenosis Compression fracture of L1 lumbar vertebra Recurrent deep vein thrombosis (DVT) Peripheral vascular disease History of gastric cancer Lumbar spondylosis BPH (benign prostatic hyperplasia) COPD (chronic obstructive pulmonary disease) Joint pain Surgical History History of colonoscopy Amputation of toe of left foot History of gastrectomy Family History Father Diabetes Cancer Mother Diabetes Brother Lung cancer Social History Household Members: None Household Members Other:: lives alone son checks by daily Housing: Apartment Are you a primary career manager to a significant other at home: No Do you presently have visiting nurse or other home services: No Alcohol intake: former Year quit: 1969 Patient Tobacco Use Status: Never used Tobacco e-Cigarette/Vaping Use: Never Used Second Hand Smoke Exposure: No service: No Current occupational status: retired Cognitive needs: Yes (walker/power chair) Hearing needs: No Vision needs: Yes (reading) Review of Systems Const All systems reviewed & are unremarkable except as noted in HPI and below Physical Exam Vital Signs: Last Vital Signs Pulse 70 02/24/23 13:01 Resp 16 02/24/23 13:01 BP 119/62 02/24/23 13:01 Pulse Ox 96 02/24/23 13:01 Oxygen Delivery Method Room Air 02/24/23 13:01 BMI result Body Mass Index 23.6 General: awake, alert, oriented. Answers questions appropriately. Fully engaged in examination. Skin: warm, dry, intact HEENT: Normocephalic. Hearing intact. Cardiac: External chest normal in appearance. Respiratory: No cough, audible wheezing or stridor. Abdomen: without gross distension. MS: No obvious swelling or deformities. Able to transition from sit to stand unassisted. Ambulates with bilaterally normal heel strike and toe off Neurological: Oriented to person, place, time and situation. Thought process intact. Utilizes a walking stick. Psychiatric: Appropriate mood and affect. Good judgment and insight. Assessment & Plan Assessment & Plan (1) Peripheral vascular disease: Comment: Left lower extremity vascular occluded on Left dorsalis pedis significant disease January 2021 Code(s): I73.9 - Peripheral vascular disease, unspecified (2) Controlled type 2 diabetes mellitus with diabetic nephropathy, without long- term current use of insulin: Code(s): E11.21 - Type 2 diabetes mellitus with diabetic nephropathy (3) Diabetic polyneuropathy: Code(s): E11.42 - Type 2 diabetes mellitus with diabetic polyneuropathy (4) Postlaminectomy syndrome: Code(s): M96.1 - Postlaminectomy syndrome, not elsewhere classified (5) Chronic pain syndrome: Code(s): G89.4 - Chronic pain syndrome Plan Patient is suffering from significant peripheral lower extremity arterial disease and post laminectomy syndrome. He is on chronic opioid therapy, continues to decline neuromodulation. Masspat was reviewed and without concerns. No obvious signs of diversion, abuse or misuse of the opioid medications. Will send in prescription for oxycodone/acetaminophen 5-325 mg BID with an advanced date of 03/23/2022. Patient to follow-up in the office in 1 month, sooner if needed. All questions and concerns have been answered and patient agrees with the plan. Medications: Refilled oxycodone-acetaminophen 5-325 mg Partial Fill only upon patient request. 1 tab PO Q8H 30 days PRN 90 tabs 0RF pain M47.816 - Spondylosis without myelopathy or radiculopathy, lumbar region Coding Level of Care Code Est Pt Level 4 (91610) Diagnoses Peripheral vascular disease I73.9 Controlled type 2 diabetes mellitus with diabetic nephropathy, without long-term current use of insulin E11.21 Diabetic polyneuropathy E11.42 Postlaminectomy syndrome M96.1 Chronic pain syndrome G89.4
[2023-02-24 13:01] VITALS: BP 119/62; PULSE 70; RESP 16; O2SAT 96; BMI 23.6
== END 2023-02-24 13:09 | disposition home or self-care (01) ==
PROVIDERS: PCP Internal Medicine; Visit Provider Registered Nurse Emergency
DX: G89.4 Chronic pain syndrome (principal); I73.9 Peripheral vascular disease, unspecified; E11.21 Type 2 diabetes mellitus with diabetic nephropathy; E11.42 Type 2 diabetes mellitus with diabetic polyneuropathy; M96.1 Postlaminectomy syndrome, not elsewhere classified
CPT/HCPCS: 99214

== ENCOUNTER 2023-02-27 13:05 | Outpatient (AMB) | payer MEDICARE, MEDICAID, SELFPAY ==
[2023-02-27 13:41] LABS: Prothrombin Time Whole Bld POC 29.2 sec (11.1-13.5); ~PT, ~INR - Anti Coag Clinic 2.4 (0.9-1.1)
--- NOTE | 2023-02-27 13:41 | MHC.OFFVISCO ---
Intake Intake Visit Reasons: Anticoagulation Allergies No Known Allergies Allergy (Mild, Verified 02/27/23 13:36) NOT APPLICABLE Medication List - Last Reconciled 02/27/23 by Francheska Chung RN amlodipine 5 mg PO DAILY 90 days ascorbic acid (vitamin C) 1 g PO DAILY atorvastatin 40 mg PO DAILY blood sugar diagnostic ([employer] Verio test strips) one time daily blood-glucose meter ([employer] Verio Meter) To check blood glucose once daily budesonide-formoterol 160-4.5 mcg/actuation (Symbicort) 2 puffs PO BID cholecalciferol (vitamin D3) 25 mcg PO DAILY cilostazol 100 mg PO BID cyanocobalamin (vitamin B-12) (Vitamin B-12) 250 mcg PO DAILY ferrous sulfate (FeroSul) 325 mg PO BID fluticasone propionate 50 mcg/actuation 2 sprays intranasal DAILY gabapentin 300 mg PO DAILY 90 days [garlic clove 1 dose PO NEEDED] ipratropium-albuterol 0.5 mg-3 mg(2.5 mg base)/3 mL 3 mL inhalation Q6H lancets ([employer] Delica Plus Lancet) To test bg daily lancets As directed metformin 500 mg PO DAILY metoprolol succinate ER 25 mg PO DAILY naloxone 4 mg/actuation (Narcan) 4 mg intranasal Q2M 1 day oxycodone-acetaminophen 5-325 mg 1 tab PO Q8H PRN 30 days Ventolin HFA 90 mcg/actuation (albuterol sulfate) 2 puffs inhalation Q4-6H PRN NS walker (Ultra-Light Rollator misc) As directed, ambulate at all times with walker warfarin 5 mg See Protocol PO DAILY warfarin 2.5 mg See Protocol PO DAILY 90 days Nursing Note INR: 2.4- in therapeutic range of 2-3 Medications and supplements reviewed- no changes No changes in health, diet, medications, or supplements, Denies any signs and symptoms of bleeding or bruising or clotting. Bleeding, bruising, clotting discussed Nutritional guidance given Dose: 2.5mg x 2, 5mg x 5 F/U INR: 2 weeks Patient and son verbalizes understanding of instructions given Anti-Coag Initial Assessment Social Hx Patient Tobacco Use Status: Never used Tobacco alcohol intake: former Alcohol intake frequency: does not drink Coding Level of Care Code Est Patient Level 1 Diagnoses Current use of anticoagulant therapy Z79.01 Results AMB INR Fingerstick AMB INR Fingerstick 2.4 Last Edit by Francheska Chung RN on 02/27/23 13:42 Assessment & Plan Assessment & Plan (1) Current use of anticoagulant therapy: Code(s): Z79.01 - senior living (current) 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
== END 2023-02-27 13:46 | disposition home or self-care (01) ==
LOC: HO.ACS 13:05
PROVIDERS: PCP Internal Medicine; Visit Provider Internal Medicine
DX: Z79.01 Long term (current) use of anticoagulants (principal)

== ENCOUNTER → 2023-02-27 13:05 | Outpatient (BNVA) | payer MEDICARE, MEDICAID, SELFPAY | PROVIDERS: PCP Internal Medicine; Visit Provider Internal Medicine | DX: I82.503 Chronic embolism and thrombosis of unspecified deep veins of lower extremity, bilateral (principal); Z79.01 Long term (current) use of anticoagulants; Z51.81 Encounter for therapeutic drug level monitoring | CPT/HCPCS: 85610; 99211 ==

== ENCOUNTER 2023-03-17 13:04 | Outpatient (REF) | payer MEDICARE, MEDICAID, SELFPAY ==
--- NOTE | ~2023-03-17 | XR_ITS ---
EXAMINATION: XR CHEST 2 VIEW CLINICAL INFORMATION: Cough COMPARISON: 10/29/2022 TECHNIQUE: PA and lateral views of the chest obtained. FINDINGS: There are low volumes but the lungs are clear. There are no pleural effusions. The cardiomediastinal silhouette is normal. XR/XR chest 2V IMPRESSION: No acute cardiopulmonary disease or interval change.
[2023-03-19 02:04] LABS: SARS-COV-2 IgG Spike, Semi-Qnt >150.00 index (<1.00)
== END 2023-03-17 13:05 | disposition home or self-care (01) ==
LOC: HO.XRAY 13:04
PROVIDERS: PCP Internal Medicine; Visit Provider Internal Medicine
DX: I82.503 Chronic embolism and thrombosis of unspecified deep veins of lower extremity, bilateral (principal); R05.9 Cough, unspecified; Z51.81 Encounter for therapeutic drug level monitoring; Z79.01 Long term (current) use of anticoagulants
CPT/HCPCS: 36415; 71046; 85610; 86769; 99211

== ENCOUNTER 2023-03-17 13:04 | Outpatient (AMB) | payer MEDICARE, MEDICAID, SELFPAY ==
[2023-03-17 13:14] LABS: Prothrombin Time Whole Bld POC 25.2 sec (11.1-13.5); ~PT, ~INR - Anti Coag Clinic 2.1 (0.9-1.1)
--- NOTE | 2023-03-17 13:20 | MHC.OFFVISCO ---
Intake Intake Visit Reasons: Anticoagulation Allergies No Known Allergies Allergy (Mild, Verified 03/17/23 13:06) NOT APPLICABLE Medication List - Last Reconciled 03/17/23 by Rakel Ngo RN amlodipine 5 mg PO DAILY 90 days ascorbic acid (vitamin C) 1 g PO DAILY atorvastatin 40 mg PO DAILY blood sugar diagnostic ([employer] Verio test strips) one time daily blood-glucose meter ([employer] Verio Meter) To check blood glucose once daily budesonide-formoterol 160-4.5 mcg/actuation (Symbicort) 2 puffs PO BID cholecalciferol (vitamin D3) 25 mcg PO DAILY cilostazol 100 mg PO BID cyanocobalamin (vitamin B-12) (Vitamin B-12) 250 mcg PO DAILY ferrous sulfate (FeroSul) 325 mg PO BID fluticasone propionate 50 mcg/actuation 2 sprays intranasal DAILY gabapentin 300 mg PO DAILY 90 days [garlic clove 1 dose PO NEEDED] ipratropium-albuterol 0.5 mg-3 mg(2.5 mg base)/3 mL 3 mL inhalation Q6H lancets ([employer] Delica Plus Lancet) To test bg daily lancets As directed metformin 500 mg PO DAILY metoprolol succinate ER 25 mg PO DAILY naloxone 4 mg/actuation (Narcan) 4 mg intranasal Q2M 1 day oxycodone-acetaminophen 5-325 mg 1 tab PO Q8H PRN 30 days Ventolin HFA 90 mcg/actuation (albuterol sulfate) 2 puffs inhalation Q4-6H PRN NS walker (Ultra-Light Rollator misc) As directed, ambulate at all times with walker warfarin 5 mg See Protocol PO DAILY warfarin 2.5 mg See Protocol PO DAILY 90 days Nursing Note INR: 2.1 in therapeutic range Medications and supplements reviewed Pt has had a cough for a long time per son - maybe months - thinks his father may have pneumonia - seeing PCP today son to call with any med changes Denies any signs and symptoms of bleeding or bruising or clotting. 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
== END 2023-03-17 13:25 | disposition home or self-care (01) ==
LOC: HO.ACS 13:04
PROVIDERS: PCP Internal Medicine; Visit Provider Internal Medicine
DX: Z79.01 Long term (current) use of anticoagulants (principal)

== ENCOUNTER 2023-03-17 13:27 | Outpatient (AMB) | payer MEDICARE, MEDICAID, SELFPAY ==
--- NOTE | 2023-03-17 14:29 | MHC.PC.OV ---
Vital Signs 03/17/23 14:34 Height 5 ft 10 in Weight 164 lb BMI 23.5 BP 100/62 Blood Pressure Location Lt brachial Position Sitting Pulse 60 Pulse Source Pulse Oximeter Pulse Oximetry (%) 96 Oxygen Delivery Method Room Air Intake Visit Reasons: DM, Allergies No Known Allergies Allergy (Mild, Verified 03/17/23 14:44) NOT APPLICABLE Tobacco use date assessed: 03/17/23 Fall risk assessment: No Falls in past year Last assessed Fall Risk: 03/17/23 HPI DM, HPI Details 82-year-old male with diabetes mellitus hypertension hypercholesterolemia chronic kidney disease moderate aortic stenosis last tested in March 2022 COPD stomach cancer recurrent DVT and post laminectomy syndrome last seen in January 2023. Patient is here for follow-up. Patient continues to follow-up with pain management for this lower back. Had an ankle-brachial index done January 2021 showing left dorsalis pedis significant disease while the right falsely elevated due to noncompressible vessels good. Patient also followed up with Cardiology. Echocardiogram requested. 2 months altready cough, no fevers, breathing ok, no sore throat [facility] Medical History (Updated 03/17/23 @ 15:14 by Kee Barrientos MD) Non-rheumatic aortic stenosis Chronic pain syndrome Postlaminectomy syndrome Diabetic polyneuropathy Gastric carcinoma Peripheral vascular disease Pneumonia Controlled type 2 diabetes mellitus with diabetic nephropathy, without long-term current use of insulin Type 2 diabetes mellitus with diabetic polyneuropathy Hyperlipidemia LDL goal <70 COPD (chronic obstructive pulmonary disease) Type 2 diabetes mellitus with hyperglycemia Vitamin B12 deficiency Bronchiectasis Moderate aortic stenosis Compression fracture of L1 lumbar vertebra Recurrent deep vein thrombosis (DVT) Peripheral vascular disease History of gastric cancer Lumbar spondylosis BPH (benign prostatic hyperplasia) COPD (chronic obstructive pulmonary disease) Joint pain Surgical History History of colonoscopy Amputation of toe of left foot History of gastrectomy Family History Father Diabetes Cancer Mother Diabetes Brother Lung cancer Social History Household Members: None Household Members Other:: lives alone son checks by daily Housing: Apartment Are you a primary healthcare insurance sales agent to a significant other at home: No Do you presently have visiting nurse or other home services: No Alcohol intake: former Year quit: 1970 Patient Tobacco Use Status: Never used Tobacco e-Cigarette/Vaping Use: Never Used Second Hand Smoke Exposure: No service: No Current occupational status: retired Cognitive needs: Yes (walker/power chair) Hearing needs: No Vision needs: Yes (reading) Questionnaire PHQ-9 Over the last 2 weeks, how often have you been bothered by any of the following problems? 1. Little interest or pleasure in doing things: not at all 2. Feeling down, depressed, or hopeless: not at all 3. Trouble falling or staying asleep, or sleeping too much: not at all 4. Feeling tired or having little energy: not at all 5. Poor appetite or overeating: not at all 6. Feeling bad about yourself - or that you are a failure or have let yourself or your family down: not at all 7. Trouble concentrating on things, such as reading the newspaper or watching television: not at all 8. Moving or speaking so slowly that other people could have noticed. Or the opposite - being so fidgety or restless that you have been moving around a lot more than usual: not at all 9. Thoughts that you would be better off or of hurting yourself in some way: not at all Total score: 0 Depression Screening Interpretation: Negative Depression Screening Done: Yes Source: Developed by Drs. Irwin Adrian, Teresa Pickard, Billy Linda and colleagues, with an educational janina from [employer]. Thrive Questionnaire Date Thrive assessed: 03/17/23 I am a: Patient What is your living situation today?: I have a steady place to live Within the past 12 months, did the food you bought not last and you didn't have the money to get more?: Never true Within the past 12 months, did you worry whether your food would run out before you got money to buy more?: Never true Do you have trouble paying for medicines?: No Do you have trouble getting transportation to medical appointments?: No Do you have trouble paying your heating and electricity bill?: No Do you have trouble taking care of your child, family member or friend?: No Do you have trouble with day-to-day activities such as bathing, preparing meals, shopping, managing finances, etc.?: No Are you currently unemployed and looking for a job?: No Are you interested in more education?: No AUDIT C Alcohol Use Questionnaire (AUDIT-C) 1. How often do you have a drink containing alcohol?: Never 3. How often do you have six or more drinks on one occasion?: Never Total Score: 0 Score Reviewed/Action Taken: No SHANNON-7 AMB Questionnaire SHANNON-7 Date SHANNON - 7 assessed: 03/17/23 Feeling nervous, anxious, or on edge: 0 = Not at all Not being able to stop or control worryin = Not at all Worrying too much about different things: 0 = Not at all Trouble relaxin = Not at all Being so restless that it is hard to sit still: 0 = Not at all Becoming easily annoyed or irritable: 0 = Not at all Feeling afraid as if something awful might happen: 0 = Not at all Total SHANNON-7 score (0-4 normal; 5-9 mild; 10-14 moderate; 15-21 severe): 0 Source: Developed by Drs. Irwin Adrian, Teresa Pickard, Billy Linda and colleagues, with an educational janina from [employer]. Physical exam (Primary Care) Vital Signs: Last Vital Signs Pulse 60 03/17/23 14:34 BP 100/62 03/17/23 14:34 Pulse Ox 96 03/17/23 14:34 Oxygen Delivery Method Room Air 03/17/23 14:34 BMI result Body Mass Index 23.5 Tobacco/Smoking Status: Tobacco use Status Tobacco use date assessed 03/17/23 03/17/23 14:34 Patient Tobacco Use Status Never used Tobacco 03/17/23 14:29 e-Cigarette/Vaping Use Never Used 03/17/23 14:29 PHQ-9: PHQ-9 Score PHQ-9: Total score 0 03/17/23 14:34 Depression Screening Interpretation: Negative Thrive Assessment: Date of Thrive Assessment Date Thrive assessed 03/17/23 03/17/23 14:34 Const Other: Posterior pharyngeal wall pink no swelling no redness General: alert; No acute distress Eyes Conjunctivae: conjunctivae normal Resp Other: Occasional basal crackles Cardio Rate: regular rate Rhythm: regular rhythm GI Inspection: Yes normal to inspection Extrem General: Yes normal to inspection and No edema Assessment and Plan Assessment & Plan (1) Essential hypertension: Code(s): I10 - Essential (primary) hypertension Plan: Continue with blood pressure medication. Decrease salt intake and exercise patient takes amlodipine 5 mg once a day metoprolol 25 mg once a day (2) Hyperlipidemia LDL goal <70: Code(s): E78.5 - Hyperlipidemia, unspecified Plan: Avoid fried foods, chicken skin, eggs, butter margarine, pastries and meat. 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 Hemoglobin A1c goal of less than 7.0 patient on metformin 500 mg once a day (5) Moderate aortic stenosis: Comment: August 2019 1.5 cm sq Irwin and cardiovascular As August 2021 1.1 cm2, March 2022 1.3 cm2 Code(s): I35.0 - Nonrheumatic aortic (valve) stenosis Plan: Echocardiogram ordered seen Cardiology (6) Chronic kidney disease (CKD) stage G3b/A1, moderately decreased glomerular filtration rate (GFR) between 30-44 mL/min/1.73 square meter and albuminuria creatinine ratio less than 30 mg/g: Code(s): N18.32 - Chronic kidney disease, stage 3b Plan: Keep well hydrated avoid NSAIDs (7) Lumbar spondylosis: Code(s): M47.816 - Spondylosis without myelopathy or radiculopathy, lumbar region Plan: Patient continues to follow-up with pain management (8) Cough: Code(s): R05.9 - Cough, unspecified Plan: discussed that examination does not reveal bacgterial infection - has flonase, advised chest xray. Orders: Orders XR chest 2V Today R05.9 - Cough, unspecified SARS-COV-2 IgG Harpreet, Semi-Qnt Today R05.9 - Cough, unspecified Medications: New doxycycline hyclate 100 mg PO BID 14 caps 0RF R05.9 - Cough, unspecified Coding Level of Care Code Est Pt Level 4 (71974) Diagnoses Essential hypertension I10 Hyperlipidemia LDL goal <70 E78.5 Recurrent deep vein thrombosis (DVT) I82.409 Type 2 diabetes mellitus with hyperglycemia, without long-term current use of insulin E11.65 Diabetes mellitus prison insulin use: without prison use Moderate aortic stenosis I35.0 Chronic kidney disease (CKD) stage G3b/A1, moderately decreased glomerular filtration rate (GFR) between 30-44 mL/min/1.73 square meter and albuminuria creatinine ratio less than 30 mg/g N18.32 Lumbar spondylosis M47.816 Cough R05.9
[2023-03-17 14:34] VITALS: BP 100/62; PULSE 60; O2SAT 96; BMI 23.5
== END 2023-03-17 15:21 | disposition home or self-care (01) ==
PROVIDERS: PCP Internal Medicine; Visit Provider Internal Medicine
DX: I12.9 Hypertensive chronic kidney disease with stage 1 through stage 4 chronic kidney disease, or unspecified chronic kidney disease (principal); N18.32 Chronic kidney disease, stage 3b; I82.409 Acute embolism and thrombosis of unspecified deep veins of unspecified lower extremity; E11.65 Type 2 diabetes mellitus with hyperglycemia; I35.0 Nonrheumatic aortic (valve) stenosis; M47.816 Spondylosis without myelopathy or radiculopathy, lumbar region; R05.9 Cough, unspecified
CPT/HCPCS: 99214

== ENCOUNTER 2023-03-24 13:10 | Outpatient (AMB) | payer MEDICARE, MEDICAID, SELFPAY ==
--- NOTE | 2023-03-24 13:16 | MHC.OFFVISCO ---
Intake Intake Visit Reasons: Anticoagulation Allergies No Known Allergies Allergy (Mild, Verified 03/24/23 13:11) NOT APPLICABLE Medication List - Last Reconciled 03/24/23 by Francheska Chung RN amlodipine 5 mg PO DAILY 90 days ascorbic acid (vitamin C) 1 g PO DAILY atorvastatin 40 mg PO DAILY blood sugar diagnostic ([employer] Verio test strips) one time daily blood-glucose meter ([employer] Verio Meter) To check blood glucose once daily budesonide-formoterol 160-4.5 mcg/actuation (Symbicort) 2 puffs PO BID cholecalciferol (vitamin D3) 25 mcg PO DAILY cilostazol 100 mg PO BID cyanocobalamin (vitamin B-12) (Vitamin B-12) 250 mcg PO DAILY doxycycline hyclate 100 mg PO BID ferrous sulfate (FeroSul) 325 mg PO BID fluticasone propionate 50 mcg/actuation 2 sprays intranasal DAILY gabapentin 300 mg PO DAILY 90 days [garlic clove 1 dose PO NEEDED] ipratropium-albuterol 0.5 mg-3 mg(2.5 mg base)/3 mL 3 mL inhalation Q6H lancets ([employer] Delica Plus Lancet) To test bg daily lancets As directed metformin 500 mg PO DAILY metoprolol succinate ER 25 mg PO DAILY naloxone 4 mg/actuation (Narcan) 4 mg intranasal Q2M 1 day oxycodone-acetaminophen 5-325 mg 1 tab PO Q8H PRN 30 days Ventolin HFA 90 mcg/actuation (albuterol sulfate) 2 puffs inhalation Q4-6H PRN NS walker (Ultra-Light Rollator [facility]) As directed, ambulate at all times with walker warfarin 5 mg See Protocol PO DAILY warfarin 2.5 mg See Protocol PO DAILY 90 days Nursing Note INR 1.9-? out of therapeutic range of 2-3 Medications and supplements reviewed Patient status: pt with uri Medications or supplements: no changes, on doxycycline 100mg bid- took for 3 days, then once daily due to n/v pt son states attempted to reach pcp to discuss and is going to pcp office today after acs appt to discuss Diet: somewhat less Denies any signs and symptoms of bleeding or clotting or unusual bruising Bleeding, bruising, clotting discussed Nutritional guidance given: no greens for 2 days, eat reds to raise Dose: cont reg dosing due to poss delayed response of antibiotics and poor appetite 5mg x 5, 2.5mg x 2 F/U INR Date : 1 week?? Patient verbalizing understanding of instructions given composed note to pcp regarding antibiotics. Anti-Coag Initial Assessment Social Hx Patient Tobacco Use Status: Never used Tobacco alcohol intake: former Alcohol intake frequency: does not drink Coding Level of Care Code Est Patient Level 1 Diagnoses Current use of anticoagulant therapy Z79.01 Assessment & Plan Assessment & Plan (1) Current use of anticoagulant therapy: Code(s): Z79.01 - custodial (current) 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
[2023-03-24 13:17] LABS: Prothrombin Time Whole Bld POC 22.9 sec (11.1-13.5); ~PT, ~INR - Anti Coag Clinic 1.9 (0.9-1.1)
== END 2023-03-24 13:37 | disposition home or self-care (01) ==
LOC: HO.ACS 13:10
PROVIDERS: PCP Internal Medicine; Visit Provider Internal Medicine
DX: Z79.01 Long term (current) use of anticoagulants (principal)

== ENCOUNTER → 2023-03-24 13:10 | Outpatient (BNVA) | payer MEDICARE, MEDICAID, SELFPAY | PROVIDERS: PCP Internal Medicine; Visit Provider Internal Medicine | DX: I82.503 Chronic embolism and thrombosis of unspecified deep veins of lower extremity, bilateral (principal); Z79.01 Long term (current) use of anticoagulants; Z51.81 Encounter for therapeutic drug level monitoring | CPT/HCPCS: 85610; 99211 ==

== ENCOUNTER 2023-03-25 13:29 | Outpatient (AMB) | payer MEDICARE, MEDICAID, SELFPAY ==
[2023-03-25 13:37] VITALS: BP 130/68; PULSE 59; O2SAT 99; BMI 24.2
--- NOTE | 2023-03-25 13:37 | A.OFFVIS_ITS ---
Intake Vital Signs 03/25/23 13:37 Height 5 ft 10 in Weight 169 lb BMI 24.2 BP 130/68 Blood Pressure Location Lt brachial Position Sitting Pulse 59 Pulse Source Pulse Oximeter Pulse Oximetry (%) 99 Oxygen Delivery Method Room Air Intake Visit Reasons: COPD follow-up Allergies doxycyline Adverse Reaction (Intermediate, Uncoded 03/25/23 13:56) Nausea and Vomiting Medication List - Last Reconciled 03/25/23 by Main Luis MD amlodipine 5 mg PO DAILY 90 days ascorbic acid (vitamin C) 1 g PO DAILY atorvastatin 40 mg PO DAILY blood sugar diagnostic ([employer] Verio test strips) one time daily blood-glucose meter ([employer] Verio Meter) To check blood glucose once daily budesonide-formoterol 160-4.5 mcg/actuation (Symbicort) 2 puffs PO BID cholecalciferol (vitamin D3) 25 mcg PO DAILY cilostazol 100 mg PO BID cyanocobalamin (vitamin B-12) (Vitamin B-12) 250 mcg PO DAILY ferrous sulfate (FeroSul) 325 mg PO BID fluticasone propionate 50 mcg/actuation 2 sprays intranasal DAILY gabapentin 300 mg PO DAILY 90 days [garlic clove 1 dose PO NEEDED] ipratropium-albuterol 0.5 mg-3 mg(2.5 mg base)/3 mL 3 mL inhalation Q6H lancets ([employer] Delica Plus Lancet) To test bg daily lancets As directed metformin 500 mg PO DAILY metoprolol succinate ER 25 mg PO DAILY naloxone 4 mg/actuation (Narcan) 4 mg intranasal Q2M 1 day oxycodone-acetaminophen 5-325 mg 1 tab PO Q8H PRN 30 days Ventolin HFA 90 mcg/actuation (albuterol sulfate) 2 puffs inhalation Q4-6H PRN NS walker (Ultra-Light Rollator misc) As directed, ambulate at all times with walker warfarin 5 mg See Protocol PO DAILY warfarin 2.5 mg See Protocol PO DAILY 90 days Do you need a note to return to daycare/school/sports/work: No HPI COPD follow-up HPI Details 82 years old gentleman is being followed for chronic obstructive pulmonary disease. He is using his medical regimen very regularly, including DuoNeb updrafts 2 to 3 times a day. His complaint is only occasional cough,. Without much expectoration He denies shortness of breath or wheezing. Is locomotion is slightly impaired and he uses a cane for stability. [facility] Medical History Non-rheumatic aortic stenosis Chronic pain syndrome Postlaminectomy syndrome Diabetic polyneuropathy Gastric carcinoma Peripheral vascular disease Pneumonia Controlled type 2 diabetes mellitus with diabetic nephropathy, without long-term current use of insulin Type 2 diabetes mellitus with diabetic polyneuropathy Hyperlipidemia LDL goal <70 COPD (chronic obstructive pulmonary disease) Type 2 diabetes mellitus with hyperglycemia Vitamin B12 deficiency Bronchiectasis Moderate aortic stenosis Compression fracture of L1 lumbar vertebra Recurrent deep vein thrombosis (DVT) Peripheral vascular disease History of gastric cancer Lumbar spondylosis BPH (benign prostatic hyperplasia) COPD (chronic obstructive pulmonary disease) Joint pain Surgical History History of colonoscopy Amputation of toe of left foot History of gastrectomy Family History Father Diabetes Cancer Mother Diabetes Brother Lung cancer Social History Household Members: None Household Members Other:: lives alone son checks by daily Housing: Apartment Are you a primary healthcare architect to a significant other at home: No Do you presently have visiting nurse or other home services: No Alcohol intake: former Year quit: 1969 Patient Tobacco Use Status: Never used Tobacco e-Cigarette/Vaping Use: Never Used Second Hand Smoke Exposure: No service: No Current occupational status: retired Cognitive needs: Yes (walker/power chair) Hearing needs: No Vision needs: Yes (reading) Review of Systems Const All systems reviewed & are unremarkable except as noted in HPI and below Denies poor appetite and Denies weakness Eyes Denies no additional complaints ENT Reports Normal hearing present, Denies dizziness, Reports nasal congestion (MILD ), Denies tinnitus and Denies sore throat Card Denies chest pain, Denies syncope, Denies rapid heart rate and Denies dyspnea Resp Denies cough and Denies dyspnea GI Denies change in stool character, Reports constipation, Denies diarrhea, Denies nausea and Denies vomiting Denies dysuria and Denies urinary frequency Musc Reports back pain and Reports stiffness Skin/Breast Reports system reviewed and no additional complaints, except as documented Neuro Reports Normal hearing present, Denies confusion, Denies dizziness, Denies syncope and Denies weakness Psych Denies confusion Endo Reports other (Being treated for diabetes mellitus) Physical Exam Vital Signs: Last Vital Signs Pulse 59 03/25/23 13:37 BP 130/68 03/25/23 13:37 Pulse Ox 99 03/25/23 13:37 Oxygen Delivery Method Room Air 03/25/23 13:37 BMI result Body Mass Index 24.2 Const General: No confusion Orientation/consciousness: No confusion HEENT Head: Yes normal to inspection General nose exam: No nasal polyps present and No nasal discharge present Face and sinus: Yes sinuses nontender Mouth: oropharynx normal Throat: Yes posterior oropharynx normal Eyes General: appearance normal, both eyes and all related structures Neck Neck: Yes normal visual inspection, Yes no lymphadenopathy, Yes trachea midline and Yes no JVD Thyroid: Thyroid normal Chest Chest palpation & inspection: normal inspection of the chest, normal palpation of entire chest wall and no tenderness Resp Other: Percussion note resonant on both sides. Breath sounds are slightly diminished and prolonged expiratory phase on both sides. No wheezes rhonchi or crepitations are heard today . Cardio Palpation: normal PMI Rate: regular rate Rhythm: regular rhythm Heart sounds: no gallops and no murmurs GI Palpation (GI): Soft to palpation, nontender, No hepatosplenomegaly present and no masses Auscultation: normal bowel sounds Back/Spine/Pelvis Thoracic/Lumbar Spine: thoracic and lumbar spine normal to inspection, thoraco- lumbar ROM limited and thoraco-lumbar spasm Skin General skin exam: no rashes or lesions noted Neuro General: No confusion Cranial nerves: Yes Normal hearing present Extrem General: Yes normal to inspection, Yes no clubbing, cyanosis or edema and Yes no calf tenderness Psych Mental Status: mental status grossly normal Speech and movement: Normal speech and movement present Assessment & Plan Assessment & Plan (1) COPD (chronic obstructive pulmonary disease): Comment: This patient is well known to have chronic obstructive pulmonary disease, moderately severe. He is staying stable with the current medical regimen , except for intermittent increase in cough and mucus production. Code(s): J44.9 - Chronic obstructive pulmonary disease, unspecified Qualifiers: COPD type: emphysema Emphysema type: unspecified Qualified Code(s): J43.9 - Emphysema, unspecified Plan: [place]: Symbicort 160-4.52 puffs b.i.d. Ipratropium-albuterol solution 3 ml in nebulizer Q 4-6 hours t.i.d.and PRN ventolin HFA 2 puffs Q 4-6 hours p.r.n. when outdoors. Coding Level of Care Code Est Pt Level 3 (13790) Diagnoses Pulmonary emphysema, unspecified emphysema type J43.9 COPD type: emphysema Emphysema type: unspecified
== END 2023-03-25 13:57 | disposition home or self-care (01) ==
PROVIDERS: PCP Internal Medicine; Visit Provider Internal Medicine
DX: J43.9 Emphysema, unspecified (principal)
CPT/HCPCS: 99213

== ENCOUNTER → 2023-03-25 13:29 | Outpatient (BNVA) | payer MEDICARE, MEDICAID, SELFPAY | PROVIDERS: PCP Internal Medicine; Visit Provider Internal Medicine | DX: J43.9 Emphysema, unspecified (principal) | CPT/HCPCS: 99212 ==

== ENCOUNTER 2023-03-31 12:58 | Outpatient (AMB) | payer MEDICARE, MEDICAID, SELFPAY ==
[2023-03-31 13:12] VITALS: BP 123/87; PULSE 71; RESP 16; O2SAT 98; BMI 23.5
--- NOTE | 2023-03-31 13:12 | MHC.OFFVIS ---
Intake Vital Signs 03/31/23 13:12 Height 5 ft 10 in Weight 164 lb BMI 23.5 BP 123/87 Blood Pressure Location Lt brachial Position Sitting Respiration 16 Pulse 71 Pulse Source Pulse Oximeter Pulse Oximetry (%) 98 Oxygen Delivery Method Room Air Intake Visit Reasons: Pill count/confirmed Allergies doxycyline Adverse Reaction (Intermediate, Uncoded 03/25/23 13:56) Nausea and Vomiting HPI HPI Comments History of Present Illness Details Bao is a very pleasant 82 year-old male patient who presents to the office today, accompanied by his son, for follow up chronic pain and chronic opioid therapy management. Patient is prescribed oxyocodone-acetaminophen 5-325mg take 1 tablet three times a day. Patient arrived today with the expectation of having 63 pills, he presented 69 pills which were counted in the presence of two staff members and returned to the patient in the original prescription bottle. This demonstrates responsible attitude toward patient's opioid medications. Pain today is reported today as 7/10 and last dose of pain medication was taken at 8 o'clock this morning. He is able to engage in activities of daily living with minimal interruption due to chronic pain. Patient denies side effects including somnolence, weakness, dizziness, nausea or vomiting. Patient continues with prune juice in small amounts daily to aid in digestion. Denies any recent issues with constipation. Previously: He was under care of Dr. Dunn.? Attempts to convert him to buprenorphine in the form of Belbuca or buprenorphine patch failed. He suffers from postlaminectomy syndrome, he suffers from vascular insufficiency of bilateral lower extremities.? He has negative about neuromodulation. [facility] Medical History Non-rheumatic aortic stenosis Chronic pain syndrome Postlaminectomy syndrome Diabetic polyneuropathy Gastric carcinoma Peripheral vascular disease Pneumonia Controlled type 2 diabetes mellitus with diabetic nephropathy, without long-term current use of insulin Type 2 diabetes mellitus with diabetic polyneuropathy Hyperlipidemia LDL goal <70 COPD (chronic obstructive pulmonary disease) Type 2 diabetes mellitus with hyperglycemia Vitamin B12 deficiency Bronchiectasis Moderate aortic stenosis Compression fracture of L1 lumbar vertebra Recurrent deep vein thrombosis (DVT) Peripheral vascular disease History of gastric cancer Lumbar spondylosis BPH (benign prostatic hyperplasia) COPD (chronic obstructive pulmonary disease) Joint pain Surgical History History of colonoscopy Amputation of toe of left foot History of gastrectomy Family History Father Diabetes Cancer Mother Diabetes Brother Lung cancer Social History Household Members: None Household Members Other:: lives alone son checks by daily Housing: Apartment Are you a primary acute care physical therapist to a significant other at home: No Do you presently have visiting nurse or other home services: No Alcohol intake: former Year quit: 1970 Patient Tobacco Use Status: Never used Tobacco e-Cigarette/Vaping Use: Never Used Second Hand Smoke Exposure: No service: No Current occupational status: retired Cognitive needs: Yes (walker/power chair) Hearing needs: No Vision needs: Yes (reading) Review of Systems Const All systems reviewed & are unremarkable except as noted in HPI and below Physical Exam Vital Signs: Last Vital Signs Pulse 71 03/31/23 13:12 Resp 16 03/31/23 13:12 BP 123/87 03/31/23 13:12 Pulse Ox 98 03/31/23 13:12 Oxygen Delivery Method Room Air 03/31/23 13:12 BMI result Body Mass Index 23.5 General: awake, alert, oriented. Answers questions appropriately. Fully engaged in examination. Skin: warm, dry, intact HEENT: Normocephalic. Hearing intact. Cardiac: External chest normal in appearance. Respiratory: No cough, audible wheezing or stridor. Abdomen: without gross distension. MS: No obvious swelling or deformities. Able to transition from sit to stand unassisted. Ambulates with bilaterally normal heel strike and toe off Neurological: Oriented to person, place, time and situation. Thought process intact. Utilizes a walking stick. Psychiatric: Appropriate mood and affect. Good judgment and insight. Assessment & Plan Assessment & Plan (1) Peripheral vascular disease: Comment: Left lower extremity vascular occluded on Left dorsalis pedis significant disease January 2021 Code(s): I73.9 - Peripheral vascular disease, unspecified (2) Controlled type 2 diabetes mellitus with diabetic nephropathy, without long-term current use of insulin: Code(s): E11.21 - Type 2 diabetes mellitus with diabetic nephropathy (3) Diabetic polyneuropathy: Code(s): E11.42 - Type 2 diabetes mellitus with diabetic polyneuropathy (4) Postlaminectomy syndrome: Code(s): M96.1 - Postlaminectomy syndrome, not elsewhere classified (5) Chronic pain syndrome: Code(s): G89.4 - Chronic pain syndrome Plan Patient is suffering from significant peripheral lower extremity arterial disease and post laminectomy syndrome. He is on chronic opioid therapy, continues to decline neuromodulation. Masspat was reviewed and without concerns. No obvious signs of diversion, abuse or misuse of the opioid medications. Will send in prescription for oxycodone/acetaminophen 5-325 mg BID with an advanced date of 04/22/23. Patient to follow-up in the office in 1 month, sooner if needed. All questions and concerns have been answered and patient agrees with the plan. Medications: Refilled oxycodone-acetaminophen 5-325 mg Partial Fill only upon patient request. 1 tab PO Q8H 30 days PRN 90 tabs 0RF pain M47.816 - Spondylosis without myelopathy or radiculopathy, lumbar region Coding Level of Care Code Est Pt Level 4 (61328) Diagnoses Peripheral vascular disease I73.9 Controlled type 2 diabetes mellitus with diabetic nephropathy, without long-term current use of insulin E11.21 Diabetic polyneuropathy E11.42 Postlaminectomy syndrome M96.1 Chronic pain syndrome G89.4
== END 2023-03-31 13:26 | disposition home or self-care (01) ==
PROVIDERS: PCP Internal Medicine; Visit Provider Registered Nurse Emergency
DX: I73.9 Peripheral vascular disease, unspecified (principal); E11.21 Type 2 diabetes mellitus with diabetic nephropathy; E11.42 Type 2 diabetes mellitus with diabetic polyneuropathy; M96.1 Postlaminectomy syndrome, not elsewhere classified; G89.4 Chronic pain syndrome
CPT/HCPCS: 99214

== ENCOUNTER → 2023-03-31 12:58 | Outpatient (BNVA) | payer MEDICARE, MEDICAID, SELFPAY | PROVIDERS: PCP Internal Medicine; Visit Provider Registered Nurse Emergency | DX: G89.4 Chronic pain syndrome (principal); M96.1 Postlaminectomy syndrome, not elsewhere classified; I73.9 Peripheral vascular disease, unspecified; E11.42 Type 2 diabetes mellitus with diabetic polyneuropathy; E11.21 Type 2 diabetes mellitus with diabetic nephropathy; I82.503 Chronic embolism and thrombosis of unspecified deep veins of lower extremity, bilateral; Z51.81 Encounter for therapeutic drug level monitoring; Z79.01 Long term (current) use of anticoagulants | CPT/HCPCS: 85610; 99211; 99212 ==

== ENCOUNTER 2023-03-31 13:38 | Outpatient (AMB) | payer MEDICARE, MEDICAID, SELFPAY ==
[2023-03-31 13:53] LABS: Prothrombin Time Whole Bld POC 56.7 sec (11.1-13.5); ~PT, ~INR - Anti Coag Clinic 4.7 (0.9-1.1)
--- NOTE | 2023-03-31 14:04 | MHC.OFFVISCO ---
Intake Intake Visit Reasons: Anticoagulation Allergies doxycyline Adverse Reaction (Intermediate, Uncoded 03/25/23 13:56) Nausea and Vomiting Medication List - Last Reconciled 03/31/23 by Fouzia Mcginnis, RN amlodipine 5 mg PO DAILY 90 days amlodipine 10 mg PO DAILY ascorbic acid (vitamin C) 1 g PO DAILY atorvastatin 40 mg PO DAILY blood sugar diagnostic ([employer] Verio test strips) one time daily blood-glucose meter ([employer]ouch Verio Meter) To check blood glucose once daily budesonide-formoterol 160-4.5 mcg/actuation (Symbicort) 2 puffs PO BID cholecalciferol (vitamin D3) 25 mcg PO DAILY cilostazol 100 mg PO BID cyanocobalamin (vitamin B-12) (Vitamin B-12) 250 mcg PO DAILY ferrous sulfate (FeroSul) 325 mg PO BID fluticasone propionate 50 mcg/actuation 2 sprays intranasal DAILY gabapentin 300 mg PO DAILY 90 days [garlic clove 1 dose PO NEEDED] ipratropium-albuterol 0.5 mg-3 mg(2.5 mg base)/3 mL 3 mL inhalation Q6H lancets ([employer] Couch Delica Plus Lancet) To test bg daily lancets As directed metformin 500 mg PO DAILY metoprolol succinate ER 25 mg PO DAILY naloxone 4 mg/actuation (Narcan) 4 mg intranasal Q2M 1 day oxycodone-acetaminophen 5-325 mg 1 tab PO Q8H PRN 30 days Ventolin HFA 90 mcg/actuation (albuterol sulfate) 2 puffs inhalation Q4-6H PRN NS walker (Ultra-Light Rollator [facility]) As directed, ambulate at all times with walker warfarin 5 mg See Protocol PO DAILY warfarin 2.5 mg See Protocol PO DAILY 90 days Nursing Note PT ACCOMPANIED BY SON. WAS ON DOXYCYCLINE 03/18-03/25. D/C'D BY PCP DUE TO N/V. PT FEELING BETTER NOW. DENIES ANY COUGH OR CONGESTION. APPETITE IMPROVED. INR 4.7. ABOVE RANGE. PLAN: HOLD TODAY'S DOSE (5MG) AND HOLD TOMORROW (2.5MG). F/U IN 2 DAYS 04/02. OK TO INCREASE GREENS-HAD SMALL AMOUNT OF COOKED SPINACH THIS MORNING. NO OTHER CHANGES IN MEDS OR DIET. DENIES ANY UNUSUAL BLEEDING, BRUISING, CLOTTING, CHEST PAIN OR SOB. VERBALIZES UNDERSTANDING OF INSTRUCTIONS. Anti-Coag Initial Assessment Social Hx Patient Tobacco Use Status: Never used Tobacco alcohol intake: former Alcohol intake frequency: does not drink Coding Level of Care Code Est Patient Level 1 Diagnoses Current use of anticoagulant therapy Z79.01 Time Spent (min) 15 Assessment & Plan Assessment & Plan (1) Current use of anticoagulant therapy: Code(s): Z79.01 - USP (current) 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
== END 2023-03-31 14:56 | disposition home or self-care (01) ==
LOC: HO.ACS 13:38
PROVIDERS: PCP Internal Medicine; Visit Provider Internal Medicine
DX: Z79.01 Long term (current) use of anticoagulants (principal)

== ENCOUNTER 2023-04-02 13:03 | Outpatient (AMB) | payer MEDICARE, MEDICAID, SELFPAY ==
--- NOTE | 2023-04-02 13:51 | MHC.OFFVISCO ---
Intake Intake Visit Reasons: Anticoagulation Allergies doxycyline Adverse Reaction (Intermediate, Uncoded 04/02/23 13:41) Nausea and Vomiting Nursing Note TO [facility] WITH SON. DENIES ANY UNUSUAL BRUISING OR BLEEDING. NO CHEST PAIN OR SOB. NO CHANGE IN MEDICATIONS OR DIET. INR 1.9 (RANGE 2-3). PREVIOUS INR 4.7. PLAN TO CONTINUE CURRENT DOSE AND F/U IN 1 WEEK. PT AND SON VERBALIZE GOOD UNDERSTANDING. 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
[2023-04-02 13:54] LABS: Prothrombin Time Whole Bld POC 23.2 sec (11.1-13.5); ~PT, ~INR - Anti Coag Clinic 1.9 (0.9-1.1)
== END 2023-04-02 13:55 | disposition home or self-care (01) ==
LOC: HO.ACS 13:03
PROVIDERS: PCP Internal Medicine; Visit Provider Internal Medicine
DX: Z79.01 Long term (current) use of anticoagulants (principal)

== ENCOUNTER → 2023-04-02 13:03 | Outpatient (BNVA) | payer MEDICARE, MEDICAID, SELFPAY | PROVIDERS: PCP Internal Medicine; Visit Provider Internal Medicine | DX: I82.503 Chronic embolism and thrombosis of unspecified deep veins of lower extremity, bilateral (principal); Z79.01 Long term (current) use of anticoagulants; Z51.81 Encounter for therapeutic drug level monitoring | CPT/HCPCS: 85610; 99211 ==

== ENCOUNTER 2023-04-09 13:42 | Outpatient (AMB) | payer MEDICARE, MEDICAID, SELFPAY ==
[2023-04-09 13:59] LABS: Prothrombin Time Whole Bld POC 39.5 sec (11.1-13.5); ~PT, ~INR - Anti Coag Clinic 3.3 (0.9-1.1)
--- NOTE | 2023-04-09 14:02 | MHC.OFFVISCO ---
Intake Intake Visit Reasons: Anticoagulation Allergies doxycyline Adverse Reaction (Intermediate, Uncoded 04/09/23 13:43) Nausea and Vomiting Medication List - Last Reconciled 04/09/23 by Fouzia Gilman RN amlodipine 5 mg PO DAILY 90 days ascorbic acid (vitamin C) 1 g PO DAILY atorvastatin 40 mg PO DAILY blood sugar diagnostic ([employer] Verio test strips) one time daily blood-glucose meter ([employer] Verio Meter) To check blood glucose once daily budesonide-formoterol 160-4.5 mcg/actuation (Symbicort) 2 puffs PO BID cholecalciferol (vitamin D3) 25 mcg PO DAILY cilostazol 100 mg PO BID cyanocobalamin (vitamin B-12) (Vitamin B-12) 250 mcg PO DAILY ferrous sulfate (FeroSul) 325 mg PO BID fluticasone propionate 50 mcg/actuation 2 sprays intranasal DAILY gabapentin 300 mg PO DAILY 90 days [garlic clove 1 dose PO NEEDED] ipratropium-albuterol 0.5 mg-3 mg(2.5 mg base)/3 mL 3 mL inhalation Q6H lancets ([employer] Delica Plus Lancet) To test bg daily lancets As directed metformin 500 mg PO DAILY metoprolol succinate ER 25 mg PO DAILY naloxone 4 mg/actuation (Narcan) 4 mg intranasal Q2M 1 day oxycodone-acetaminophen 5-325 mg 1 tab PO Q8H PRN 30 days Ventolin HFA 90 mcg/actuation (albuterol sulfate) 2 puffs inhalation Q4-6H PRN NS walker (Ultra-Light Rollator misc) As directed, ambulate at all times with walker warfarin 5 mg See Protocol PO DAILY warfarin 2.5 mg See Protocol PO DAILY 90 days Nursing Note Amb to [facility] accomp by son, feeling ok Medications and supplements reviewed No changes in health, diet, medications, or supplements Denies any unusual signs and symptoms of bruising, bleeding Denies any new Chest pain, SOB, or clotting INR: 3.3 above therapeutic range, sts he had small dose cough medicine a couple days ago Nutritional guidance given: ok for a green today then balance greens and reds in diet, instructed to be consistent as recent INRs have been up and down Dose: decrease dose today to 2.5mg (vs 5mg) then resume usual dosing; 2.5mg x 2 and 5mg x 5 May need weekly dosing decrease F/U INR: 10 days Patient verbalizes understanding of instructions given with accurate read back/ teach back of dosing Anti-Coag Initial Assessment Social Hx Patient Tobacco Use Status: Never used Tobacco alcohol intake: former Alcohol intake frequency: does not drink Coding Level of Care Code Est Patient Level 1 Diagnoses Current use of anticoagulant therapy Z79.01 Time Spent (min) 15 Assessment & Plan Assessment & Plan (1) Current use of anticoagulant therapy: Code(s): Z79.01 - intermediate (current) 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
== END 2023-04-09 14:28 | disposition home or self-care (01) ==
LOC: HO.ACS 13:42
PROVIDERS: PCP Internal Medicine; Visit Provider Internal Medicine
DX: Z79.01 Long term (current) use of anticoagulants (principal)

== ENCOUNTER → 2023-04-09 13:42 | Outpatient (BNVA) | payer MEDICARE, MEDICAID, SELFPAY | PROVIDERS: PCP Internal Medicine; Visit Provider Internal Medicine | DX: I82.503 Chronic embolism and thrombosis of unspecified deep veins of lower extremity, bilateral (principal); Z51.81 Encounter for therapeutic drug level monitoring; Z79.01 Long term (current) use of anticoagulants | CPT/HCPCS: 85610; 99211 ==

== ENCOUNTER 2023-04-20 12:57 | Outpatient (AMB) | payer MEDICARE, MEDICAID, SELFPAY ==
[2023-04-20 13:06] LABS: ~PT, ~INR - Anti Coag Clinic 2.1 (0.9-1.1)
--- NOTE | 2023-04-20 13:15 | MHC.OFFVISCO ---
Intake Intake Visit Reasons: Anticoagulation Allergies doxycyline Adverse Reaction (Intermediate, Uncoded 04/20/23 12:59) Nausea and Vomiting Medication List - Last Reconciled 04/20/23 by Rakel Ngo RN amlodipine 5 mg PO DAILY 90 days ascorbic acid (vitamin C) 1 g PO DAILY atorvastatin 40 mg PO DAILY blood sugar diagnostic ([employer] Verio test strips) one time daily blood-glucose meter ([employer] Verio Meter) To check blood glucose once daily budesonide-formoterol 160-4.5 mcg/actuation (Symbicort) 2 puffs PO BID cholecalciferol (vitamin D3) 25 mcg PO DAILY cilostazol 100 mg PO BID cyanocobalamin (vitamin B-12) (Vitamin B-12) 250 mcg PO DAILY ferrous sulfate (FeroSul) 325 mg PO BID fluticasone propionate 50 mcg/actuation 2 sprays intranasal DAILY gabapentin 300 mg PO DAILY 90 days [garlic clove 1 dose PO NEEDED] ipratropium-albuterol 0.5 mg-3 mg(2.5 mg base)/3 mL 3 mL inhalation Q6H lancets ([employer] Delica Plus Lancet) To test bg daily lancets As directed metformin 500 mg PO DAILY metoprolol succinate ER 25 mg PO DAILY naloxone 4 mg/actuation (Narcan) 4 mg intranasal Q2M 1 day oxycodone-acetaminophen 5-325 mg 1 tab PO Q8H PRN 30 days Ventolin HFA 90 mcg/actuation (albuterol sulfate) 2 puffs inhalation Q4-6H PRN NS walker (Ultra-Light Rollator misc) As directed, ambulate at all times with walker warfarin 5 mg See Protocol PO DAILY warfarin 2.5 mg See Protocol PO DAILY 90 days Nursing Note INR: 2.1 in therapeutic range Medications and supplements reviewed No changes in health, diet, medications, or supplements, Denies any signs and symptoms of bleeding or bruising or clotting. Bleeding, bruising, clotting discussed Nutritional guidance given - eat a mix of fruits and vegetables, avoid greens today only Dose: keep same for now 2.5mg x 2 days/ 5mg x 5 days F/U INR: 2 1/2 weeks rather INR slighlty over range than below due to hx of clots Patient verbalizes understanding of instructions given Anti-Coag Initial Assessment Social Hx Patient Tobacco Use Status: Never used Tobacco alcohol intake: former Alcohol intake frequency: does not drink Coding Level of Care Code Est Patient Level 1 Diagnoses Current use of anticoagulant therapy Z79.01 Assessment & Plan Assessment & Plan (1) Current use of anticoagulant therapy: 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
== END 2023-04-20 13:17 | disposition home or self-care (01) ==
LOC: HO.ACS 12:57
PROVIDERS: PCP Internal Medicine; Visit Provider Internal Medicine
DX: Z79.01 Long term (current) use of anticoagulants (principal)

== ENCOUNTER → 2023-04-20 12:57 | Outpatient (BNVA) | payer MEDICARE, MEDICAID, SELFPAY | PROVIDERS: PCP Internal Medicine; Visit Provider Internal Medicine | DX: I82.503 Chronic embolism and thrombosis of unspecified deep veins of lower extremity, bilateral (principal); Z79.01 Long term (current) use of anticoagulants; Z51.81 Encounter for therapeutic drug level monitoring | CPT/HCPCS: 85610; 99211 ==

== ENCOUNTER 2023-05-01 12:49 | Outpatient (AMB) | payer MEDICARE, MEDICAID, SELFPAY ==
[2023-05-01 13:00] VITALS: BP 133/63; PULSE 60; RESP 16; O2SAT 97; BMI 23.5
--- NOTE | 2023-05-01 13:00 | A.OFFVIS_ITS ---
Intake Vital Signs 05/01/23 13:00 Height 5 ft 10 in Weight 164 lb BMI 23.5 BP 133/63 Blood Pressure Location Lt brachial Position Sitting Respiration 16 Pulse 60 Pulse Source Pulse Oximeter Pulse Oximetry (%) 97 Oxygen Delivery Method Room Air Intake Visit Reasons: Med Count - Confirmed Allergies doxycyline Adverse Reaction (Intermediate, Uncoded 04/20/23 12:59) Nausea and Vomiting HPI HPI Comments History of Present Illness Details Bao is a very pleasant 82 year-old male patient who presents to the office today, accompanied by his son, for follow up chronic pain and chronic opioid therapy management. Patient is prescribed oxyocodone-acetaminophen 5-325mg take 1 tablet three times a day. Patient arrived today with the expectation of having 60 pills, he presented 66 pills which were counted in the presence of two staff members and returned to the patient in the original prescription bottle. This demonstrates responsible attitude toward patient's opioid medications. Pain today is reported today as 8/10 and last dose of pain medication was taken at 06:00 this morning. He is able to engage in activities of daily living with minimal interruption due to chronic pain. Patient denies side effects including somnolence, weakness, dizziness, nausea or vomiting. Patient continues with prune juice in small amounts daily to aid in digestion. Denies any recent issues with constipation. Previously: He was under care of Dr. Dunn.? Attempts to convert him to buprenorphine in the form of Belbuca or buprenorphine patch failed. He suffers from postlaminectomy syndrome, he suffers from vascular insufficiency of bilateral lower extremities.? He has negative about neuromodulation. [facility] Medical History Non-rheumatic aortic stenosis Chronic pain syndrome Postlaminectomy syndrome Diabetic polyneuropathy Gastric carcinoma Peripheral vascular disease Pneumonia Controlled type 2 diabetes mellitus with diabetic nephropathy, without long-term current use of insulin Type 2 diabetes mellitus with diabetic polyneuropathy Hyperlipidemia LDL goal <70 COPD (chronic obstructive pulmonary disease) Type 2 diabetes mellitus with hyperglycemia Vitamin B12 deficiency Bronchiectasis Moderate aortic stenosis Compression fracture of L1 lumbar vertebra Recurrent deep vein thrombosis (DVT) Peripheral vascular disease History of gastric cancer Lumbar spondylosis BPH (benign prostatic hyperplasia) COPD (chronic obstructive pulmonary disease) Joint pain Surgical History History of colonoscopy Amputation of toe of left foot History of gastrectomy Family History Father Diabetes Cancer Mother Diabetes Brother Lung cancer Social History Household Members: None Household Members Other:: lives alone son checks by daily Housing: Apartment Are you a primary care center manager to a significant other at home: No Do you presently have visiting nurse or other home services: No Alcohol intake: former Year quit: 1970 Patient Tobacco Use Status: Never used Tobacco e-Cigarette/Vaping Use: Never Used Second Hand Smoke Exposure: No service: No Current occupational status: retired Cognitive needs: Yes (walker/power chair) Hearing needs: No Vision needs: Yes (reading) Review of Systems Const All systems reviewed & are unremarkable except as noted in HPI and below Physical Exam Vital Signs: Last Vital Signs Pulse 60 05/01/23 13:00 Resp 16 05/01/23 13:00 BP 133/63 05/01/23 13:00 Pulse Ox 97 05/01/23 13:00 Oxygen Delivery Method Room Air 05/01/23 13:00 BMI result Body Mass Index 23.5 General: awake, alert, oriented. Answers questions appropriately. Fully engaged in examination. Skin: warm, dry, intact HEENT: Normocephalic. Hearing intact. Cardiac: External chest normal in appearance. Respiratory: No cough, audible wheezing or stridor. Abdomen: without gross distension. MS: No obvious swelling or deformities. Able to transition from sit to stand unassisted. Ambulates with bilaterally normal heel strike and toe off Neurological: Oriented to person, place, time and situation. Thought process intact. Utilizes a walking stick. Psychiatric: Appropriate mood and affect. Good judgment and insight. Assessment & Plan Assessment & Plan (1) Peripheral vascular disease: Comment: Left lower extremity vascular occluded on Left dorsalis pedis significant disease January 2021 Code(s): I73.9 - Peripheral vascular disease, unspecified (2) Controlled type 2 diabetes mellitus with diabetic nephropathy, without long- term current use of insulin: Code(s): E11.21 - Type 2 diabetes mellitus with diabetic nephropathy (3) Diabetic polyneuropathy: Code(s): E11.42 - Type 2 diabetes mellitus with diabetic polyneuropathy (4) Postlaminectomy syndrome: Code(s): M96.1 - Postlaminectomy syndrome, not elsewhere classified (5) Chronic pain syndrome: Code(s): G89.4 - Chronic pain syndrome Plan Patient is suffering from significant peripheral lower extremity arterial disea se and post laminectomy syndrome. He is on chronic opioid therapy, continues to decline neuromodulation. Masspat was reviewed and without concerns. No obvious signs of diversion, abuse or misuse of the opioid medications. Will send in prescription for oxycodone/acetaminophen 5-325 mg BID with an advanced date of 05/22/23. C/W prune juice as needed for constipation. Patient to follow-up in the office in 1 month, sooner if needed. All questions and concerns have been answered and patient agrees with the plan. Medications: Refilled oxycodone-acetaminophen 5-325 mg Partial Fill only upon patient request. 1 tab PO Q8H 30 days PRN 90 tabs 0RF pain M47.816 - Spondylosis without myelopathy or radiculopathy, lumbar region Coding Level of Care Code Est Pt Level 4 (40920) Diagnoses Peripheral vascular disease I73.9 Controlled type 2 diabetes mellitus with diabetic nephropathy, without long-term current use of insulin E11.21 Diabetic polyneuropathy E11.42 Postlaminectomy syndrome M96.1 Chronic pain syndrome G89.4
== END 2023-05-01 13:19 | disposition home or self-care (01) ==
PROVIDERS: PCP Internal Medicine; Visit Provider Registered Nurse Emergency
DX: G89.4 Chronic pain syndrome (principal); I73.9 Peripheral vascular disease, unspecified; E11.42 Type 2 diabetes mellitus with diabetic polyneuropathy; Z79.891 Long term (current) use of opiate analgesic; M96.1 Postlaminectomy syndrome, not elsewhere classified
CPT/HCPCS: 99214

== ENCOUNTER → 2023-05-01 12:49 | Outpatient (BNVA) | payer MEDICARE, MEDICAID, SELFPAY | PROVIDERS: PCP Internal Medicine; Visit Provider Registered Nurse Emergency | DX: E11.21 Type 2 diabetes mellitus with diabetic nephropathy (principal); E11.42 Type 2 diabetes mellitus with diabetic polyneuropathy; E11.51 Type 2 diabetes mellitus with diabetic peripheral angiopathy without gangrene; M96.1 Postlaminectomy syndrome, not elsewhere classified; G89.4 Chronic pain syndrome | CPT/HCPCS: 99212 ==

== ENCOUNTER 2023-05-04 13:10 | Outpatient (AMB) | payer MEDICARE, MEDICAID, SELFPAY ==
[2023-05-04 13:15] LABS: Prothrombin Time Whole Bld POC 58.4 sec (11.1-13.5); ~PT, ~INR - Anti Coag Clinic 4.9 (0.9-1.1)
--- NOTE | 2023-05-04 13:25 | MHC.OFFVISCO ---
Intake Intake Visit Reasons: Anticoagulation Allergies doxycyline Adverse Reaction (Intermediate, Uncoded 05/04/23 13:10) Nausea and Vomiting Nursing Note INR 4.9? out of therapeutic range of 2-3 Pt, accompanied to ASC by son, states he has a bad tooth that needs removal and his diet has been affected D/T pain. Also he has been drinking an herbal tea known to increase bleeding time. Patient status: No other changes, no increase in pain meds/Tylenol Medications or supplements: no changes Diet: decreased D/T bad tooth and inability to chew Denies any signs and symptoms of bleeding or clotting or unusual bruising Bleeding, bruising, clotting discussed and pt. Pt and son understand that he is at an increased risk of bleeding and to go to ER if any concerns. Nutritional guidance given: have greens today and tomorrow Dose: hold dose today and decrease tomorrow's dose to 2.5mg F/U INR Date : 2 days?? Patient verbalizing understanding of instructions given. 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
== END 2023-05-04 13:37 | disposition home or self-care (01) ==
LOC: HO.ACS 13:10
PROVIDERS: PCP Internal Medicine; Visit Provider Internal Medicine
DX: Z79.01 Long term (current) use of anticoagulants (principal)

== ENCOUNTER → 2023-05-04 13:10 | Outpatient (BNVA) | payer MEDICARE, MEDICAID, SELFPAY | PROVIDERS: PCP Internal Medicine; Visit Provider Internal Medicine | DX: I82.503 Chronic embolism and thrombosis of unspecified deep veins of lower extremity, bilateral (principal); Z79.01 Long term (current) use of anticoagulants; Z51.81 Encounter for therapeutic drug level monitoring | CPT/HCPCS: 85610; 99211 ==

== ENCOUNTER 2023-05-06 10:26 | Outpatient (AMB) | payer MEDICARE, MEDICAID, SELFPAY ==
[2023-05-06 10:54] LABS: Prothrombin Time Whole Bld POC 24.9 sec (11.1-13.5); ~PT, ~INR - Anti Coag Clinic 2.1 (0.9-1.1)
--- NOTE | 2023-05-06 11:02 | MHC.OFFVISCO ---
Intake Intake Visit Reasons: Anticoagulation Allergies doxycyline Adverse Reaction (Intermediate, Uncoded 05/06/23 10:48) Nausea and Vomiting Medication List - Last Reconciled 05/06/23 by Fouzia Mcginnis, COLTON amlodipine 5 mg PO DAILY 90 days amlodipine 10 mg PO DAILY ascorbic acid (vitamin C) 1 g PO DAILY atorvastatin 40 mg PO DAILY blood sugar diagnostic (GreenPoint PartnersTouch Verio test strips) one time daily blood-glucose meter (72xuanuch Verio Meter) To check blood glucose once daily budesonide-formoterol 160-4.5 mcg/actuation (Symbicort) 2 puffs PO BID cholecalciferol (vitamin D3) 25 mcg PO DAILY cilostazol 100 mg PO BID cyanocobalamin (vitamin B-12) (Vitamin B-12) 250 mcg PO DAILY ferrous sulfate (FeroSul) 325 mg PO BID fluticasone propionate 50 mcg/actuation 2 sprays intranasal DAILY gabapentin 300 mg PO DAILY 90 days [garlic clove 1 dose PO NEEDED] ipratropium-albuterol 0.5 mg-3 mg(2.5 mg base)/3 mL 3 mL inhalation Q6H lancets (72xuanuch Delica Plus Lancet) To test bg daily lancets As directed metformin 500 mg PO DAILY metoprolol succinate ER 25 mg PO DAILY naloxone 4 mg/actuation (Narcan) 4 mg intranasal Q2M 1 day oxycodone-acetaminophen 5-325 mg 1 tab PO Q8H PRN 30 days Ventolin HFA 90 mcg/actuation (albuterol sulfate) 2 puffs inhalation Q4-6H PRN NS walker (Ultra-Light Rollator [facility] [place] As directed, ambulate at all times with walker warfarin 5 mg See Protocol PO DAILY warfarin 2.5 mg See Protocol PO DAILY 90 days Nursing Note Pt to [facility] accompanied by son INR: 2.1 in therapeutic range of 2-3 Medications and supplements reviewed No changes in health, diet, medications, or supplements, Pt still needs to have tooth pulled, looking for new dentist and will stop at dentist when he leaves ACS Denies any signs and symptoms of bleeding or bruising or clotting. 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
== END 2023-05-06 11:05 | disposition home or self-care (01) ==
PROVIDERS: PCP Internal Medicine; Visit Provider Internal Medicine
DX: Z79.01 Long term (current) use of anticoagulants (principal)

== ENCOUNTER → 2023-05-06 10:26 | Outpatient (BNVA) | payer MEDICARE, MEDICAID, SELFPAY | PROVIDERS: PCP Internal Medicine; Visit Provider Internal Medicine | DX: I82.503 Chronic embolism and thrombosis of unspecified deep veins of lower extremity, bilateral (principal); Z79.01 Long term (current) use of anticoagulants; Z51.81 Encounter for therapeutic drug level monitoring | CPT/HCPCS: 85610; 99211 ==

== ENCOUNTER → 2023-05-12 13:15 | Outpatient (BNVA) | payer MEDICARE, MEDICAID, SELFPAY | PROVIDERS: PCP Internal Medicine; Visit Provider Internal Medicine | DX: I82.503 Chronic embolism and thrombosis of unspecified deep veins of lower extremity, bilateral (principal); Z79.01 Long term (current) use of anticoagulants; Z51.81 Encounter for therapeutic drug level monitoring | CPT/HCPCS: 85610; 99211 ==

== ENCOUNTER 2023-05-14 13:01 | Outpatient (AMB) | payer MEDICARE, MEDICAID, SELFPAY ==
[2023-05-14 13:12] LABS: Prothrombin Time Whole Bld POC 17.6 sec (11.1-13.5); ~PT, ~INR - Anti Coag Clinic 1.5 (0.9-1.1)
--- NOTE | 2023-05-14 13:27 | MHC.OFFVISCO ---
Intake Intake Visit Reasons: Anticoagulation Allergies doxycyline Adverse Reaction (Intermediate, Uncoded 05/14/23 13:07) Nausea and Vomiting Medication List - Last Reconciled 05/14/23 by Fouzia Mcginnis, COLTON amlodipine 5 mg PO DAILY 90 days amlodipine 10 mg PO DAILY ascorbic acid (vitamin C) 1 g PO DAILY atorvastatin 40 mg PO DAILY blood sugar diagnostic (OneTouch Verio test strips) one time daily blood-glucose meter ([employer] Verio Meter) To check blood glucose once daily budesonide-formoterol 160-4.5 mcg/actuation (Symbicort) 2 puffs PO BID cholecalciferol (vitamin D3) 25 mcg PO DAILY cilostazol 100 mg PO BID cyanocobalamin (vitamin B-12) (Vitamin B-12) 250 mcg PO DAILY ferrous sulfate (FeroSul) 325 mg PO BID fluticasone propionate 50 mcg/actuation 2 sprays intranasal DAILY gabapentin 300 mg PO DAILY 90 days [garlic clove 1 dose PO NEEDED] ipratropium-albuterol 0.5 mg-3 mg(2.5 mg base)/3 mL 3 mL inhalation Q6H lancets ([employer] Delica Plus Lancet) To test bg daily lancets As directed metformin 500 mg PO DAILY metoprolol succinate ER 25 mg PO DAILY naloxone 4 mg/actuation (Narcan) 4 mg intranasal Q2M 1 day oxycodone-acetaminophen 5-325 mg 1 tab PO Q8H PRN 30 days Ventolin HFA 90 mcg/actuation (albuterol sulfate) 2 puffs inhalation Q4-6H PRN NS walker (Ultra-Light Rollator [facility] [place]) As directed, ambulate at all times with walker warfarin 5 mg See Protocol PO DAILY warfarin 2.5 mg See Protocol PO DAILY 90 days Nursing Note INR 1.5??out of therapeutic range of 2-3 Pt skipped 2 doses of 5mg each on Thursday(6days ago) and Thursday(2days ago). He self dosed himself thinking he needed to decrease his INR for tooth extraction. Son Bao said he needs 4 teeth pulled and the dentist wants the pt to see his PCP first. He has an appt on 06/30. Tooth extraction is now expected at the end of June. Medications and supplements reviewed: no change Medications or supplements: no changes Diet: no changes Denies any signs and symptoms of bleeding or clotting or unusual bruising Bleeding, bruising, clotting discussed Nutritional guidance given: pt will avoid greens for next several days Son will make sure pt has beets and beet juice today Dose: increased today's dose to 7.5mg(5mg) and tomorrow to 7.5mg(5mg) and the next day to 5mg(2.5mg) then to resume usual dosing 5mg X5days and 2.5mg X 2days F/U INR Date : ?5 days Patient and son verbalizing understanding of instructions given. 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
== END 2023-05-14 13:43 | disposition home or self-care (01) ==
LOC: HO.ACS 13:01
PROVIDERS: PCP Internal Medicine; Visit Provider Internal Medicine
DX: Z79.01 Long term (current) use of anticoagulants (principal)

== ENCOUNTER → 2023-05-14 13:01 | Outpatient (BNVA) | payer MEDICARE, MEDICAID, SELFPAY | PROVIDERS: PCP Internal Medicine; Visit Provider Internal Medicine | DX: I82.503 Chronic embolism and thrombosis of unspecified deep veins of lower extremity, bilateral (principal); Z79.01 Long term (current) use of anticoagulants; Z51.81 Encounter for therapeutic drug level monitoring | CPT/HCPCS: 85610; 99211 ==

== ENCOUNTER 2023-05-19 13:08 | Outpatient (AMB) | payer MEDICARE, MEDICAID, SELFPAY ==
--- NOTE | 2023-05-19 13:26 | MHC.OFFVISCO ---
Intake Intake Visit Reasons: Anticoagulation Allergies doxycyline Adverse Reaction (Intermediate, Uncoded 05/19/23 13:21) Nausea and Vomiting Medication List - Last Reconciled 05/19/23 by Francheska Chung RN amlodipine 5 mg PO DAILY 90 days amlodipine 10 mg PO DAILY ascorbic acid (vitamin C) 1 g PO DAILY atorvastatin 40 mg PO DAILY blood sugar diagnostic (DataCoupTouch Verio test strips) one time daily blood-glucose meter (Thrup[employer]uch Verio Meter) To check blood glucose once daily budesonide-formoterol 160-4.5 mcg/actuation (Symbicort) 2 puffs PO BID cholecalciferol (vitamin D3) 25 mcg PO DAILY cilostazol 100 mg PO BID cyanocobalamin (vitamin B-12) (Vitamin B-12) 250 mcg PO DAILY ferrous sulfate (FeroSul) 325 mg PO BID fluticasone propionate 50 mcg/actuation 2 sprays intranasal DAILY gabapentin 300 mg PO DAILY 90 days [garlic clove 1 dose PO NEEDED] ipratropium-albuterol 0.5 mg-3 mg(2.5 mg base)/3 mL 3 mL inhalation Q6H lancets (Thrup[employer]uch Delica Plus Lancet) To test bg daily lancets As directed metformin 500 mg PO DAILY metoprolol succinate ER 25 mg PO DAILY naloxone 4 mg/actuation (Narcan) 4 mg intranasal Q2M 1 day oxycodone-acetaminophen 5-325 mg 1 tab PO Q8H PRN 30 days Ventolin HFA 90 mcg/actuation (albuterol sulfate) 2 puffs inhalation Q4-6H PRN NS walker (Ultra-Light Rollator [facility] [place]) As directed, ambulate at all times with walker warfarin 5 mg See Protocol PO DAILY warfarin 2.5 mg See Protocol PO DAILY 90 days Nursing Note INR: 2.9- in therapeutic range of 2-3 Medications and supplements reviewed No changes in health, diet, medications, or supplements, Denies any signs and symptoms of bleeding or bruising or clotting. Bleeding, bruising, clotting discussed Nutritional guidance given Dose: 2.5mg x 2, 5mg x 5 F/U INR: 2 weeks Patient verbalizes understanding of instructions given pt son present for visit, no date for dental extraction yet Anti-Coag Initial Assessment Social Hx Patient Tobacco Use Status: Never used Tobacco alcohol intake: former Alcohol intake frequency: does not drink Coding Level of Care Code Est Patient Level 1 Diagnoses Current use of anticoagulant therapy Z79.01 Results AMB INR Fingerstick AMB INR Fingerstick 2.9 Last Edit by Francheska Chung RN on 05/19/23 13:28 Assessment & Plan Assessment & Plan (1) Current use of anticoagulant therapy: Code(s): Z79.01 - 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
[2023-05-19 13:27] LABS: Prothrombin Time Whole Bld POC 34.4 sec (11.1-13.5); ~PT, ~INR - Anti Coag Clinic 2.9 (0.9-1.1)
== END 2023-05-19 13:32 | disposition home or self-care (01) ==
LOC: HO.ACS 13:08
PROVIDERS: PCP Internal Medicine; Visit Provider Internal Medicine
DX: Z79.01 Long term (current) use of anticoagulants (principal)

== ENCOUNTER → 2023-05-19 13:08 | Outpatient (BNVA) | payer MEDICARE, MEDICAID, SELFPAY | PROVIDERS: PCP Internal Medicine; Visit Provider Internal Medicine | DX: I82.503 Chronic embolism and thrombosis of unspecified deep veins of lower extremity, bilateral (principal); Z79.01 Long term (current) use of anticoagulants; Z51.81 Encounter for therapeutic drug level monitoring | CPT/HCPCS: 85610; 99211 ==

== ENCOUNTER → 2023-05-22 12:24 | Outpatient (REF) | payer MEDICARE, MEDICAID, SELFPAY ==
--- NOTE | 2023-05-22 12:27 | CA_ITS ---
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 Normal LV ejection fraction with grade 2 diastolic dysfunction with severe asymmetric septal hypertrophy 2. Mildly dilated left atrium 3. Moderate aortic stenosis and mild aortic regurgitation 4. Normal RV systolic pressure 5. Mildly dilated ascending aorta at 4 cm 6. No gross pericardial effusion Findings Left Ventricle Normal left ventricular size, thickness, and systolic function. The visually estimated ejection fraction is between 55-60%. Spectral Doppler is indicative of a pseudonormal filling pattern. E/E prime ratio is >15, consistent with elevated filling pressures. Evidence suggests grade II (moderate) diastolic dysfunction. There is severe septal asymmetric hypertrophy. Right Ventricle Normal right ventricular cavity size and systolic function. Atria The left atrium is mildly dilated. There is no evidence of interatrial shunt. The right atrium is likely dilated. Aortic Valve There is moderate calcification of the aortic valve. There is moderate aortic valve stenosis. The peak aortic gradient is 38 mmHg.The mean gradient is 20 mmHg. The aortic valve area is 1.18 cm2. There is mild aortic valve regurgitation. Mitral Valve There is mild anterior and moderate posterior mitral leaflet thickening. There is moderate mitral annular calcification. There is trace mitral valve regurgitation. There is no mitral valve stenosis. Pulmonic Valve The pulmonic valve is likely normal. There is trace to mild pulmonic valve regurgitation. Tricuspid Valve Normal tricuspid valve structure. There is mild tricuspid valve regurgitation. The right ventricular systolic pressure is normal. The right ventricular systolic pressure is 19 mmHg. Normal right atrial pressure. There is no evidence of pulmonary hypertension. Great Vessels The pulmonary artery was not well visualized. There is mild dilatation of the ascending aorta measuring 4.00 cm. Venous The inferior vena cava is normal in size and collapses greater than 50% with inspiration. Pericardium/Pleural There is no evidence of pericardial effusion. Measurements 2D Linear Measurements IVSd: 2.04 0.6-0.9/0.6-1.0 cm LVIDd: 4.04 3.9-5.3/4.2-5.9 cm LVIDd Index: 2.10 2.4-3.2/2.2-3.1 cm/m2 LVIDs: 2.89 2.0-3.6 cm LVPWd: 0.96 0.7-1.1 cm LA Diam: 4.10 2.7-3.8/3.0-4.0 cm LAIDs Index: 2.14 1.5-2.3 cm/m2 LV Mass: 294.45 67-162/88-224 g LV Mass Index: 153.36 43-95/49-115 g/m2 LVOT Diam: 2.20 3.0+(-)1.3 cm 2D Systolic Function EF 4C: 50.10 >55% EF 2C: 62.90 >55% EF BiP: 56.80 >55% Mitral Valve MV VTI: 0.42 MV Pk Yousuf: 1.35 MV Mn Yousuf: 0.77 MV Pk Grad: 7.00 MV Mn Grad: 3.00 MV Pk E: 1.25 MV PK A: 0.99 MV Decel Time: 359.00 E/A: 1.30 E'Lateral: 3.70 E'Medial: 5.33 E/E' Med: 23.50 E/E' Lat: 33.80 PHT: 105.00 MVA PHT: 2.10 MVA Continuity: 1.96 Decel [place]: 3.49 Aortic Valve AoV Pk Yousuf: 3.07 AoV Mn Yousuf: 2.09 AoV VTI: 0.70 AoV Pk Grad: 38.00 Aov Mn Grad: 20.00 MOISE Cont.VTI: 1.18 AI Pk Yousuf: 4.41 AI [place]: 2.05 LVOT LVOT Pk Yousuf: 1.01 LVOT Mn Yousuf: 0.65 LVOT VTI: 0.22 LVOT Pk Grad: 4.00 LVOT Mn Grad: 2.00 LVOT Diam: 2.20 LVOT Area: 3.80 Diastolic Function MV Pk E: 1.25 MV Pk A: 0.99 E/A: 1.30 E'Medial: 5.33 E/E' Med: 23.50 E' Laterial: 3.70 E/E' Lat: 33.80 Right Ventricle TAPSE (mm): 22.10 TVS' Yousuf: 12.50 Tricuspid Valve TR Pk Yousuf: 2.01 TR Pk Grad: 16.00 RA Press: 3.00 RVSP: 19.00 Great Vessels Aorta Sinus of Valsalva: 3.70 2.0-3.5 cm Ao Asc: 4.00 2.1-3.4 cm Pulmonary Veins Pulm Vein S/D 1.60 Pulmonary Valve PV Pk Yousuf: 0.89 Peak PV Grad: 3.00 Updated in Other Vendor System with Status of Final Dedrick Ray MD electronically signed on 05/24/2023 1:00:31 PM with status of Final
== END ==
LOC: HO.CARD 12:24
PROVIDERS: PCP Internal Medicine; Visit Provider Internal Medicine
DX: I35.0 Nonrheumatic aortic (valve) stenosis (principal)
CPT/HCPCS: 93306

== ENCOUNTER → 2023-05-22 12:27 | Outpatient (BNV) | payer MEDICARE, MEDICAID, SELFPAY | PROVIDERS: PCP Internal Medicine; Visit Provider Internal Medicine Cardiovascular Disease | DX: I35.2 Nonrheumatic aortic (valve) stenosis with insufficiency (principal); I42.2 Other hypertrophic cardiomyopathy | CPT/HCPCS: 93306 ==

== ENCOUNTER 2023-05-29 12:41 | Outpatient (AMB) | payer MEDICARE, MEDICAID, SELFPAY ==
[2023-05-29 13:11] VITALS: BP 127/71; PULSE 70; RESP 16; O2SAT 96; BMI 23.4
--- NOTE | 2023-05-29 13:11 | A.OFFVIS_ITS ---
Intake Vital Signs 05/29/23 13:11 Height 5 ft 10 in Weight 163 lb 7 oz BMI 23.4 BP 127/71 Blood Pressure Location Lt brachial Position Sitting Respiration 16 Pulse 70 Pulse Source Pulse Oximeter Pulse Oximetry (%) 96 Oxygen Delivery Method Room Air Intake Visit Reasons: Pill Count Allergies doxycyline Adverse Reaction (Intermediate, Uncoded 05/19/23 13:21) Nausea and Vomiting HPI HPI Comments History of Present Illness Details Bao is a very pleasant 82 year-old male patient who presents to the office today, accompanied by his son, for follow up chronic pain and chronic opioid therapy management. Patient is prescribed oxyocodone-acetaminophen 5-325mg take 1 tablet three times a day. Patient arrived today with the expectation of having 66 pills, he presented 70 pills which were counted in the presence of two staff members and returned to the patient in the original prescription bottle. This demonstrates responsible attitude toward patient's opioid medications. Pain today is reported today as 9/10 and last dose of pain medication was taken at 06:00 this morning. He attributes his worsening pain today to the cold, damp weather. He has also almost due for his next dose of medication Patient denies side effects including somnolence, weakness, dizziness, nausea or vomiting. Patient continues with prune juice in small amounts daily to aid in digestion. Denies any recent issues with constipation. Previously: He was under care of Dr. Dunn.? Attempts to convert him to buprenorphine in the form of [place] or buprenorphine patch failed. He suffers from postlaminectomy syndrome, he suffers from vascular insufficiency of bilateral lower extremities.? He has negative about neuromodulation. [facility] Medical History Non-rheumatic aortic stenosis Chronic pain syndrome Postlaminectomy syndrome Diabetic polyneuropathy Gastric carcinoma Peripheral vascular disease Pneumonia Controlled type 2 diabetes mellitus with diabetic nephropathy, without long-term current use of insulin Type 2 diabetes mellitus with diabetic polyneuropathy Hyperlipidemia LDL goal <70 COPD (chronic obstructive pulmonary disease) Type 2 diabetes mellitus with hyperglycemia Vitamin B12 deficiency Bronchiectasis Moderate aortic stenosis Compression fracture of L1 lumbar vertebra Recurrent deep vein thrombosis (DVT) Peripheral vascular disease History of gastric cancer Lumbar spondylosis BPH (benign prostatic hyperplasia) COPD (chronic obstructive pulmonary disease) Joint pain Surgical History History of colonoscopy Amputation of toe of left foot History of gastrectomy Family History Father Diabetes Cancer Mother Diabetes Brother Lung cancer Social History Household Members: None Household Members Other:: lives alone son checks by daily Housing: Apartment Are you a primary healthcare risk control consultant to a significant other at home: No Do you presently have visiting nurse or other home services: No Alcohol intake: former Year quit: 1969 Patient Tobacco Use Status: Never used Tobacco e-Cigarette/Vaping Use: Never Used Second Hand Smoke Exposure: No service: No Current occupational status: retired Cognitive needs: Yes (walker/power chair) Hearing needs: No Vision needs: Yes (reading) Review of Systems Const All systems reviewed & are unremarkable except as noted in HPI and below Physical Exam Vital Signs: Last Vital Signs Pulse 70 05/29/23 13:11 Resp 16 05/29/23 13:11 BP 127/71 05/29/23 13:11 Pulse Ox 96 05/29/23 13:11 Oxygen Delivery Method Room Air 05/29/23 13:11 BMI result Body Mass Index 23.4 General: awake, alert, oriented. Answers questions appropriately. Fully engaged in examination. Skin: warm, dry, intact HEENT: Normocephalic. Hearing intact. Cardiac: External chest normal in appearance. Respiratory: No cough, audible wheezing or stridor. Abdomen: without gross distension. MS: No obvious swelling or deformities. Able to transition from sit to stand unassisted. Ambulates with bilaterally normal heel strike and toe off Neurological: Oriented to person, place, time and situation. Thought process intact. Utilizes a walking stick. Psychiatric: Appropriate mood and affect. Good judgment and insight. Assessment & Plan Assessment & Plan (1) Peripheral vascular disease: Comment: Left lower extremity vascular occluded on Left dorsalis pedis significant disease January 2021 Code(s): I73.9 - Peripheral vascular disease, unspecified (2) Controlled type 2 diabetes mellitus with diabetic nephropathy, without long- term current use of insulin: Code(s): E11.21 - Type 2 diabetes mellitus with diabetic nephropathy (3) Diabetic polyneuropathy: Code(s): E11.42 - Type 2 diabetes mellitus with diabetic polyneuropathy (4) Postlaminectomy syndrome: Code(s): M96.1 - Postlaminectomy syndrome, not elsewhere classified (5) Chronic pain syndrome: Code(s): G89.4 - Chronic pain syndrome Plan Patient is suffering from significant peripheral lower extremity arterial disease and post laminectomy syndrome. He is on chronic opioid therapy, declines neuromodulation. Masspat was reviewed and without concerns. No obvious signs of diversion, abuse or misuse of the opioid medications. Will send in prescription for oxycodone/acetaminophen 5-325 mg BID with an advanced date of 06/21/23. C/W prune juice as needed for constipation. Patient to follow-up in the office in 1 month, sooner if needed. All questions and concerns have been answered and patient agrees with the plan. Medications: Refilled oxycodone-acetaminophen 5-325 mg Partial Fill only upon patient request. 1 tab PO Q8H PRN 90 tabs 0RF pain 30 days M47.816 - Spondylosis without myelopathy or radiculopathy, lumbar region Coding Level of Care Code Est Pt Level 4 (72618) Diagnoses Peripheral vascular disease I73.9 Controlled type 2 diabetes mellitus with diabetic nephropathy, without long-term current use of insulin E11.21 Diabetic polyneuropathy E11.42 Postlaminectomy syndrome M96.1 Chronic pain syndrome G89.4
== END 2023-05-29 13:14 | disposition home or self-care (01) ==
PROVIDERS: PCP Internal Medicine; Visit Provider Registered Nurse Emergency
DX: G89.4 Chronic pain syndrome (principal); I73.9 Peripheral vascular disease, unspecified; E11.21 Type 2 diabetes mellitus with diabetic nephropathy; Z79.891 Long term (current) use of opiate analgesic; E11.42 Type 2 diabetes mellitus with diabetic polyneuropathy; M96.1 Postlaminectomy syndrome, not elsewhere classified
CPT/HCPCS: 99214

== ENCOUNTER → 2023-05-29 12:41 | Outpatient (BNVA) | payer MEDICARE, MEDICAID, SELFPAY | PROVIDERS: PCP Internal Medicine; Visit Provider Registered Nurse Emergency | DX: G89.4 Chronic pain syndrome (principal); M96.1 Postlaminectomy syndrome, not elsewhere classified; M47.816 Spondylosis without myelopathy or radiculopathy, lumbar region; E11.42 Type 2 diabetes mellitus with diabetic polyneuropathy; E11.21 Type 2 diabetes mellitus with diabetic nephropathy; I73.9 Peripheral vascular disease, unspecified; Z79.891 Long term (current) use of opiate analgesic; Z51.81 Encounter for therapeutic drug level monitoring | CPT/HCPCS: 99212 ==

== ENCOUNTER 2023-06-02 13:01 | Outpatient (AMB) | payer MEDICARE, MEDICAID, SELFPAY ==
[2023-06-02 13:43] LABS: Prothrombin Time Whole Bld POC 47.5 sec (11.1-13.5)
--- NOTE | 2023-06-02 13:49 | MHC.OFFVISCO ---
Intake Intake Visit Reasons: Anticoagulation Allergies doxycyline Adverse Reaction (Intermediate, Uncoded 06/02/23 13:37) Nausea and Vomiting Medication List - Last Reconciled 06/02/23 by Rakel Ngo RN amlodipine 5 mg PO DAILY 90 days amlodipine 10 mg PO DAILY ascorbic acid (vitamin C) 1 g PO DAILY atorvastatin 40 mg PO DAILY blood sugar diagnostic (wavecatchTouch Verio test strips) one time daily blood-glucose meter ([employer] Verio Meter) To check blood glucose once daily budesonide-formoterol 160-4.5 mcg/actuation (Symbicort) 2 puffs PO BID cholecalciferol (vitamin D3) 25 mcg PO DAILY cilostazol 100 mg PO BID cyanocobalamin (vitamin B-12) (Vitamin B-12) 250 mcg PO DAILY ferrous sulfate (FeroSul) 325 mg PO BID fluticasone propionate 50 mcg/actuation 2 sprays intranasal DAILY gabapentin 300 mg PO DAILY 90 days [garlic clove 1 dose PO NEEDED] ipratropium-albuterol 0.5 mg-3 mg(2.5 mg base)/3 mL 3 mL inhalation Q6H lancets ([employer] Delica Plus Lancet) To test bg daily lancets As directed metformin 500 mg PO DAILY metoprolol succinate ER 25 mg PO DAILY naloxone 4 mg/actuation (Narcan) 4 mg intranasal Q2M 1 day oxycodone-acetaminophen 5-325 mg 1 tab PO Q8H PRN 30 days Ventolin HFA 90 mcg/actuation (albuterol sulfate) 2 puffs inhalation Q4-6H PRN NS walker (Ultra-Light Rollator [facility] [place]) As directed, ambulate at all times with walker warfarin 5 mg See Protocol PO DAILY warfarin 2.5 mg See Protocol PO DAILY 90 days Nursing Note no date for dental extraction at this time INR 4.0 out of therapeutic range Medications and supplements reviewed Patient status: has been eating erendira, beets and increase in garlic - all raise the INR Medications or supplements: no changes Diet: good appetite Denies any signs and symptoms of bleeding or clotting or unusual bruising Bleeding, bruising, clotting discussed Nutritional guidance given: review food list weekly, when eating mangos beets and garlic eat an extra green or 2 to balance the INR Dose: decrease today's dose to 2.5mg ( x 3 days this ) then resume usual dose 2.5mg x 2 days/ 5mg x 5 days F/U INR Date: 10 days 06/12/23 ?? Patient verbalizing understanding of instructions given. 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
== END 2023-06-02 14:00 | disposition home or self-care (01) ==
LOC: HO.ACS 13:01
PROVIDERS: PCP Internal Medicine; Visit Provider Internal Medicine
DX: Z79.01 Long term (current) use of anticoagulants (principal)

== ENCOUNTER → 2023-06-02 13:01 | Outpatient (BNVA) | payer MEDICARE, MEDICAID, SELFPAY | PROVIDERS: PCP Internal Medicine; Visit Provider Internal Medicine | DX: I82.503 Chronic embolism and thrombosis of unspecified deep veins of lower extremity, bilateral (principal); Z79.01 Long term (current) use of anticoagulants; Z51.81 Encounter for therapeutic drug level monitoring | CPT/HCPCS: 85610; 99211 ==

== ENCOUNTER 2023-06-11 12:40 | Outpatient (AMB) | payer MEDICARE, MEDICAID, SELFPAY ==
--- NOTE | 2023-06-11 13:07 | A.OFFVIS_ITS ---
Intake Vital Signs 06/11/23 13:08 Height 5 ft 10 in Weight 168 lb 13.985 oz BMI 24.2 BP 120/60 Blood Pressure Location Lt brachial Position Sitting Pulse 72 Intake Visit Reasons: follow up echo/[facility] records Treater Helper Required: No Treater Helper Name: Bao BARNEY/ son Accompanied by: Son Allergies doxycyline Adverse Reaction (Intermediate, Uncoded 06/11/23 13:41) Nausea and Vomiting Medication List - Last Reconciled 06/11/23 by Reinaldo Perez MD amlodipine 5 mg PO DAILY 90 days ascorbic acid (vitamin C) 1 g PO DAILY atorvastatin 40 mg PO DAILY blood sugar diagnostic ([employer] Verio test strips) one time daily blood-glucose meter ([employer] Verio Meter) To check blood glucose once daily budesonide-formoterol 160-4.5 mcg/actuation (Symbicort) 2 puffs PO BID cholecalciferol (vitamin D3) 25 mcg PO DAILY cilostazol 100 mg PO BID cyanocobalamin (vitamin B-12) (Vitamin B-12) 250 mcg PO DAILY ferrous sulfate (FeroSul) 325 mg PO BID fluticasone propionate 50 mcg/actuation 2 sprays intranasal DAILY gabapentin 300 mg PO DAILY 90 days [garlic clove 1 dose PO NEEDED] ipratropium-albuterol 0.5 mg-3 mg(2.5 mg base)/3 mL 3 mL inhalation Q6H lancets ([employer] Delica Plus Lancet) To test bg daily lancets As directed metformin 500 mg PO DAILY metoprolol succinate ER 25 mg PO DAILY naloxone 4 mg/actuation (Narcan) 4 mg intranasal Q2M 1 day oxycodone-acetaminophen 5-325 mg 1 tab PO Q8H PRN 30 days Ventolin HFA 90 mcg/actuation (albuterol sulfate) 2 puffs inhalation Q4-6H PRN NS walker (Ultra-Light Rollator misc) As directed, ambulate at all times with walker warfarin 5 mg See Protocol PO DAILY warfarin 2.5 mg See Protocol PO DAILY 90 days HPI HPI Comments History of Present Illness Details Bao returns for follow-up. Previously seen at [facility]. History of peripheral vascular disease and prior left fem-pop bypass and goes to [facility] [place]. No documented coronary disease. Multiple comorbidities. Within limits of her activity, he denies any anginal- type symptoms. Repeatedly questioned and he states no. Son is the senior producer and signed the appropriate forms. [facility] Medical History Non-rheumatic aortic stenosis Chronic pain syndrome Postlaminectomy syndrome Diabetic polyneuropathy Gastric carcinoma Peripheral vascular disease Pneumonia Controlled type 2 diabetes mellitus with diabetic nephropathy, without long-term current use of insulin Type 2 diabetes mellitus with diabetic polyneuropathy Hyperlipidemia LDL goal <70 COPD (chronic obstructive pulmonary disease) Type 2 diabetes mellitus with hyperglycemia Vitamin B12 deficiency Bronchiectasis Moderate aortic stenosis Compression fracture of L1 lumbar vertebra Recurrent deep vein thrombosis (DVT) Peripheral vascular disease History of gastric cancer Lumbar spondylosis BPH (benign prostatic hyperplasia) COPD (chronic obstructive pulmonary disease) Joint pain Surgical History History of colonoscopy Amputation of toe of left foot History of gastrectomy Family History Father Diabetes Cancer Mother Diabetes Brother Lung cancer Social History Household Members: None Household Members Other:: lives alone son checks by daily Housing: Apartment Are you a primary home care associate to a significant other at home: No Do you presently have visiting nurse or other home services: No Alcohol intake: former Year quit: 1969 Patient Tobacco Use Status: Never used Tobacco e-Cigarette/Vaping Use: Never Used Second Hand Smoke Exposure: No service: No Current occupational status: retired Cognitive needs: Yes (walker/power chair) Hearing needs: No Vision needs: Yes (reading) Review of Systems Const Denies chills, Denies fatigue, Denies fever(s), Denies frequent falls, Denies weakness, Denies weight gain and Denies weight loss ENT Denies dizziness Card Denies chest pain, Denies leg edema, Denies lightheadedness, Denies palpitations, Denies dyspnea and Denies dyspnea on exertion Resp Denies cough, Denies dyspnea and Denies dyspnea on exertion GI Denies hematochezia Musc Denies abnormal gait, Denies muscle weakness, Denies numbness, Denies radiating pain into limb and Denies tingling Neuro Denies Abnormal speech present, Denies abnormal gait, Denies dizziness, Denies frequent falls, Denies numbness, Denies tingling and Denies weakness Endo Denies fatigue and Denies palpitations Physical Exam Vital Signs: Last Vital Signs Pulse 72 06/11/23 13:08 BP 120/60 06/11/23 13:08 BMI result Body Mass Index 24.2 Const General: comfortable and no acute distress Orientation/consciousness: patient oriented x3 HEENT Other: Unremarkable Head: Yes normal to inspection Neck Neck: Yes normal visual inspection Chest Chest palpation & inspection: normal inspection of the chest Resp Auscultation: clear to auscultation bilaterally Cardio Palpation: normal PMI Heart sounds: S1 normal heart sound present, S2 normal heart sound present, no gallops, Murmur heart sound present systolic III/ and at the right sternal border and no rubs GI Palpation (GI): Soft to palpation Back/Spine/Pelvis Other: unremarkable Skin General skin exam: no rashes or lesions noted Neuro General: patient oriented x3 Speech: No Abnormal speech present Extrem General: Yes normal to inspection Psych Mental Status: mental status grossly normal Assessment & Plan Assessment & Plan (1) Non-rheumatic aortic stenosis: Code(s): I35.0 - Nonrheumatic aortic (valve) stenosis Plan Recent EKG with sinus rhythm at 67/Min; premature atrial contractions; left ventricular hypertrophy. In the recent echocardiogram, mean gradient across aortic valve was 20 mm Hg with the calculated valve area of 1.18 cm2. In the previous study from 2022- peak/mean gradients across aortic valve-49/29. Aortic valve area by continuity equation-1.3 sq cm. There is also moderate mitral annular calcification. Preserved LVEF at 55-60%. There is moderate diastolic dysfunction. Ascending aortic size 4 cm. We can repeat echocardiogram in a year for follow-up of aortic valve stenosis and the other findings. Otherwise, mainly aggressive risk factor modification as he has got so many comorbidities, as well as vascular disease. If any clear-cut angina, then we can perform ischemic workup with stress test. Follow-up in 1 year. In the interim, to call with concerns. Total time spent including review of data, counseling, documentation, coordination of care =31 minutes. Orders: Orders CA echo transthoracic complete 1 Year I35.0 - Nonrheumatic aortic (valve) stenosis Coding Level of Care Code Est Pt Level 4 (03998) Diagnoses Non-rheumatic aortic stenosis I35.0
[2023-06-11 13:08] VITALS: BP 120/60; PULSE 72; BMI 24.2
== END 2023-06-11 13:27 | disposition home or self-care (01) ==
PROVIDERS: PCP Internal Medicine; Visit Provider Internal Medicine
DX: I35.0 Nonrheumatic aortic (valve) stenosis (principal)
CPT/HCPCS: 99214

== ENCOUNTER → 2023-06-11 12:40 | Outpatient (BNVA) | payer MEDICARE, MEDICAID, SELFPAY | PROVIDERS: PCP Internal Medicine; Visit Provider Internal Medicine | DX: I82.503 Chronic embolism and thrombosis of unspecified deep veins of lower extremity, bilateral (principal); Z79.01 Long term (current) use of anticoagulants; Z51.81 Encounter for therapeutic drug level monitoring; I35.0 Nonrheumatic aortic (valve) stenosis | CPT/HCPCS: 85610; 99211; 99212 ==

== ENCOUNTER 2023-06-11 13:31 | Outpatient (AMB) | payer MEDICARE, MEDICAID, SELFPAY ==
[2023-06-11 13:48] LABS: Prothrombin Time Whole Bld POC 36.9 sec (11.1-13.5); ~PT, ~INR - Anti Coag Clinic 3.1 (0.9-1.1)
--- NOTE | 2023-06-11 13:57 | MHC.OFFVISCO ---
Intake Intake Visit Reasons: Anticoagulation Allergies doxycyline Adverse Reaction (Intermediate, Uncoded 06/11/23 13:41) Nausea and Vomiting Medication List - Last Reconciled 06/11/23 by Rakel Ngo RN amlodipine 5 mg PO DAILY 90 days ascorbic acid (vitamin C) 1 g PO DAILY atorvastatin 40 mg PO DAILY blood sugar diagnostic ([employer]Touch Verio test strips) one time daily blood-glucose meter (InvolvioTouch Verio Meter) To check blood glucose once daily budesonide-formoterol 160-4.5 mcg/actuation (Symbicort) 2 puffs PO BID cholecalciferol (vitamin D3) 25 mcg PO DAILY cilostazol 100 mg PO BID cyanocobalamin (vitamin B-12) (Vitamin B-12) 250 mcg PO DAILY ferrous sulfate (FeroSul) 325 mg PO BID fluticasone propionate 50 mcg/actuation 2 sprays intranasal DAILY gabapentin 300 mg PO DAILY 90 days [garlic clove 1 dose PO NEEDED] ipratropium-albuterol 0.5 mg-3 mg(2.5 mg base)/3 mL 3 mL inhalation Q6H lancets ([employer] Delica Plus Lancet) To test bg daily lancets As directed metformin 500 mg PO DAILY metoprolol succinate ER 25 mg PO DAILY naloxone 4 mg/actuation (Narcan) 4 mg intranasal Q2M 1 day oxycodone-acetaminophen 5-325 mg 1 tab PO Q8H PRN 30 days Ventolin HFA 90 mcg/actuation (albuterol sulfate) 2 puffs inhalation Q4-6H PRN NS walker (Ultra-Light Rollator misc) As directed, ambulate at all times with walker warfarin 5 mg See Protocol PO DAILY warfarin 2.5 mg See Protocol PO DAILY 90 days Nursing Note INR: 3.1 almost in therapeutic range- (rather INR a litle above range than below due to his circulation and hx of clauditication, Medications and supplements reviewed No changes in health, diet, medications, or supplements, Denies any signs and symptoms of bleeding or bruising or clotting. Bleeding, bruising, clotting discussed Nutritional guidance given - eat just a little more greens Dose: keep same dose 2.5mg x 2 days/ 5mg x 5 days F/U INR: 2weeks Patient verbalizes understanding of instructions given Anti-Coag Initial Assessment Social Hx Patient Tobacco Use Status: Never used Tobacco alcohol intake: former Alcohol intake frequency: does not drink Coding Level of Care Code Est Patient Level 1 Diagnoses Current use of anticoagulant therapy Z79.01 Results AMB INR Fingerstick AMB INR Fingerstick 3.1 Last Edit by Rakel Ngo RN on 06/11/23 13:51 manual entry Assessment & Plan Assessment & Plan (1) Current use of anticoagulant therapy: Code(s): 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
== END 2023-06-11 14:00 | disposition home or self-care (01) ==
LOC: HO.ACS 13:31
PROVIDERS: PCP Internal Medicine; Visit Provider Internal Medicine
DX: Z79.01 Long term (current) use of anticoagulants (principal)

== ENCOUNTER 2023-06-18 13:31 | Outpatient (AMB) | payer MEDICARE, MEDICAID, SELFPAY ==
[2023-06-18 13:43] VITALS: BP 110/58; PULSE 63; O2SAT 97; BMI 24.1
--- NOTE | 2023-06-18 13:43 | MHC.PC.OV ---
Vital Signs 06/18/23 13:43 Height 5 ft 10 in Weight 168 lb BMI 24.1 BP 110/58 L Blood Pressure Location Lt brachial Position Sitting Pulse 63 Pulse Source Pulse Oximeter Pulse Oximetry (%) 97 Oxygen Delivery Method Room Air Intake Visit Reasons: DM Physician Assistant Psychiatry Required: No Allergies doxycyline Adverse Reaction (Intermediate, Uncoded 06/18/23 13:43) Nausea and Vomiting Tobacco use date assessed: 06/18/23 Fall risk assessment: No Falls in past year Last assessed Fall Risk: 06/18/23 Dental Screening Dental Screen Date: 06/18/23 Did you have a dental visit in the last 12 months?: Yes Did you have a dental problem in the last 6 months where you did not have access to dental care?: No Was dental information given to patient?: Patient has dentist HPI DM HPI Details 82-year-old male with controlled diabetes mellitus hypercholesterolemia hypertension moderate aortic stenosis chronic kidney disease and lumbar spondylosis coming in for follow-up last seen in March 2023. Patient follows up with pain management for the low back pain and peripheral arterial disease on chronic opiate therapy. Echocardiogram done May 2023 Normal LV ejection fraction with grade 2 diastolic dysfunction with severe asymmetric septal hypertrophy 2. Mildly dilated left atrium 3. Moderate aortic stenosis 1.18 cm2 and mild aortic regurgitation 4. Normal RV systolic pressure 5. Mildly dilated ascending aorta at 4 cm 6. No gross pericardial effusion Review of the notes also received a note from Cardiology seen in March 2022. Patient follows up with Pulmonary in March 2023 for the COPD moderately severe stable on Symbicort DuoNeb and Ventolin . Patient has been doing fine feels tired has a complaint but otherwise no chest pains no shortness a breath no bowel bladder symptoms. Patient has an upcoming dental appointment and would like to have the directions for the Coumadin. 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, without long-term current use of insulin Effusion of right knee joint Contusion of right knee Hemarthrosis involving knee joint Left shoulder pain Appetite impaired Hearing difficulty Weight loss Cough Non-rheumatic aortic stenosis Chronic pain syndrome Postlaminectomy syndrome Diabetic polyneuropathy Gastric carcinoma Peripheral vascular disease Pneumonia Hyperlipidemia LDL goal <70 COPD (chronic obstructive pulmonary disease) Type 2 diabetes mellitus with hyperglycemia Vitamin B12 deficiency Bronchiectasis Moderate aortic stenosis Compression fracture of L1 lumbar vertebra Recurrent deep vein thrombosis (DVT) Peripheral vascular disease History of gastric cancer BPH (benign prostatic hyperplasia) COPD (chronic obstructive pulmonary disease) Joint pain Surgical History History of colonoscopy Amputation of toe of left foot History of gastrectomy Family History Father Diabetes Cancer Mother Diabetes Brother Lung cancer Social History Household Members: None Household Members Other:: lives alone son checks by daily Housing: Apartment Are you a primary director day care center to a significant other at home: No Do you presently have visiting nurse or other home services: No Alcohol intake: former Year quit: 1969 Patient Tobacco Use Status: Never used Tobacco e-Cigarette/Vaping Use: Never Used Second Hand Smoke Exposure: No service: No Current occupational status: retired Cognitive needs: Yes (walker/power chair) Hearing needs: No Vision needs: Yes (reading) Questionnaire Thrive Questionnaire Date Thrive assessed: 06/18/23 I am a: Patient What is your living situation today?: I have a steady place to live Within the past 12 months, did the food you bought not last and you didn't have the money to get more?: Never true Within the past 12 months, did you worry whether your food would run out before you got money to buy more?: Never true Do you have trouble paying for medicines?: No Do you have trouble getting transportation to medical appointments?: No Do you have trouble paying your heating and electricity bill?: No Do you have trouble taking care of your child, family member or friend?: No Do you have trouble with day-to-day activities such as bathing, preparing meals, shopping, managing finances, etc.?: No Are you currently unemployed and looking for a job?: No Are you interested in more education?: No Please select the resources that you would like help with: None Currently or been in a relationship where the following occur: no concerns reported THRIVE Score: 0 AUDIT C Alcohol Use Questionnaire (AUDIT-C) 1. How often do you have a drink containing alcohol?: Never 3. How often do you have six or more drinks on one occasion?: Never Total Score: 0 Score Reviewed/Action Taken: No SHANNON-7 AMB Questionnaire SHANNON-7 Date SHANNON - 7 assessed: 03/17/23 Source: Developed by Drs. Irwin Adrian, Teresa Pickard, Billy Linda and colleagues, with an educational janina from [employer]. Physical exam (Primary Care) Vital Signs: Last Vital Signs Pulse 63 06/18/23 13:43 BP 110/58 L 06/18/23 13:43 Pulse Ox 97 06/18/23 13:43 Oxygen Delivery Method Room Air 06/18/23 13:43 BMI result Body Mass Index 24.1 Tobacco/Smoking Status: Tobacco use Status Tobacco use date assessed 06/18/23 06/18/23 13:44 Patient Tobacco Use Status Never used Tobacco 06/18/23 13:44 e-Cigarette/Vaping Use Never Used 06/18/23 13:44 Thrive Assessment: Date of Thrive Assessment Date Thrive assessed 06/18/23 06/18/23 13:44 Currently or been in a relationship where the following occur: no concerns reported Const General: alert; No acute distress Eyes Conjunctivae: conjunctivae normal Resp Auscultation: clear to auscultation bilaterally Cardio Rate: regular rate Rhythm: regular rhythm GI Inspection: Yes normal to inspection Extrem General: Yes normal to inspection and No edema Results AMB Hemoglobin A1c AMB Hemoglobin A1c 6.3 % Last Edit by MARK Cohen on 06/18/23 14:07 Assessment and Plan Assessment & Plan (1) Type 2 diabetes mellitus with hyperglycemia: Code(s): E11.65 - Type 2 diabetes mellitus with hyperglycemia Qualifiers: Diabetes mellitus halfway insulin use: without wheel and axle inspector use Qualified Code(s): E11.65 - Type 2 diabetes mellitus with hyperglycemia Plan: Decrease the amount of carbohydrate intake, pasta, bread, rice and potatoes are all sugar and that is aside from all the sweet stuff, remember that fruits are good but they are Sweet also. Hemoglobin A1c goal of less than 7.0 patient on metformin 500 mg once a day (2) Moderate aortic stenosis: Comment: August 2019 1.5 cm sq Bishop and cardiovascular As August 2021 1.1 cm2, March 2022 1.3 cm2 May 2023 1.18 cm squared Code(s): I35.0 - Nonrheumatic aortic (valve) stenosis Plan: Continue to monitor May 2023 last echocardiogram (3) Chronic kidney disease (CKD) stage G3b/A1, moderately decreased glomerular filtration rate (GFR) between 30-44 mL/min/1.73 square meter and albuminuria creatinine ratio less than 30 mg/g: Code(s): N18.32 - Chronic kidney disease, stage 3b Plan: Keep well hydrated avoid NSAIDs control the blood pressure and diabetes (4) Essential hypertension: Code(s): I10 - Essential (primary) hypertension Plan: Continue with blood pressure medication. Decrease salt intake and exercise presently on metoprolol 25 mg once a day amlodipine 5 mg once a day (5) Hyperlipidemia LDL goal <70: Code(s): E78.5 - Hyperlipidemia, unspecified Plan: Avoid fried foods, chicken skin, eggs, butter margarine, pastries and meat. Be it pork or beef they have a lot of cholesterol LDL goal of less than 70 and triglyceride of less than 150 patient on atorvastatin 40 mg once a day (6) Postlaminectomy syndrome: Code(s): M96.1 - Postlaminectomy syndrome, not elsewhere classified Plan: Continue to follow-up with pain management (7) Anemia: Code(s): D64.9 - Anemia, unspecified Plan: Continue to monitor and is on vitamin-C in iron (8) Recurrent deep vein thrombosis (DVT): Comment: Left lower extremity bypass graft Code(s): I82.409 - Acute embolism and thrombosis of unspecified deep veins of unspecified lower extremity Plan: Continue with anticoagulation. Patient has an upcoming dental procedure that needs to interrupt the anticoagulation. Discussed about bridging and so advised 5 days before the procedure to stop the Coumadin and to start on Lovenox shots. On the day of the procedure no shots. One day after the procedure start the Lovenox and resume the Coumadin dose. Two days after to retest the prothrombin time and if therapeutic may stop the Lovenox shots. (9) COPD (chronic obstructive pulmonary disease): Comment: This patient is well known to have chronic obstructive pulmonary disease, moderately severe. He is staying stable with the current medical regimen , except for intermittent increase in cough and mucus production. Code(s): J44.9 - Chronic obstructive pulmonary disease, unspecified Qualifiers: COPD type: emphysema Emphysema type: unspecified Qualified Code(s): J43.9 - Emphysema, unspecified Plan: Continue with the inhaler albuterol and Symbicort and DuoNeb follows up with Pulmonary. Orders: Orders AMB Hemoglobin A1c Today E11.65 - Type 2 diabetes mellitus with hyperglycemia Medications: New enoxaparin (Lovenox) 70 mg (0.7 mL) subcut Q12H 5 days 8 mL 1RF I82.409 - Acute embolism and thrombosis of unspecified deep veins of unspecified lower extremity blood pressure monitor (Blood Pressure Kit) As directed 1 ea 0RF I10 - Essential (primary) hypertension Coding Level of Care Code Est Pt Level 4 (79978) Diagnoses Type 2 diabetes mellitus with hyperglycemia, without long-term current use of insulin E11.65 Diabetes mellitus halfway insulin use: without wheel and axle inspector use Moderate aortic stenosis I35.0 Chronic kidney disease (CKD) stage G3b/A1, moderately decreased glomerular filtration rate (GFR) between 30-44 mL/min/1.73 square meter and albuminuria creatinine ratio less than 30 mg/g N18.32 Essential hypertension I10 Hyperlipidemia LDL goal <70 E78.5 Postlaminectomy syndrome M96.1 Anemia D64.9 Recurrent deep vein thrombosis (DVT) I82.409 Pulmonary emphysema, unspecified emphysema type J43.9 COPD type: emphysema Emphysema type: unspecified
== END 2023-06-18 14:19 | disposition home or self-care (01) ==
PROVIDERS: PCP Internal Medicine; Visit Provider Internal Medicine
DX: E11.65 Type 2 diabetes mellitus with hyperglycemia (principal); I35.0 Nonrheumatic aortic (valve) stenosis; I12.9 Hypertensive chronic kidney disease with stage 1 through stage 4 chronic kidney disease, or unspecified chronic kidney disease; N18.32 Chronic kidney disease, stage 3b; E78.5 Hyperlipidemia, unspecified; M96.1 Postlaminectomy syndrome, not elsewhere classified; D64.9 Anemia, unspecified; I82.409 Acute embolism and thrombosis of unspecified deep veins of unspecified lower extremity; J43.9 Emphysema, unspecified
CPT/HCPCS: 83036; 99214

== ENCOUNTER 2023-06-19 11:55 | Outpatient (REF) | payer MEDICARE, MEDICAID, SELFPAY | END 2023-06-19 11:56 | disposition home or self-care (01) | LOC: HO.SH 11:55 | PROVIDERS: Visit Provider Internal Medicine | DX: Z01.118 Encounter for examination of ears and hearing with other abnormal findings (principal); H90.3 Sensorineural hearing loss, bilateral | CPT/HCPCS: 92557 ==

== ENCOUNTER 2023-06-23 11:10 | Outpatient (AMB) | payer MEDICARE, MEDICAID, SELFPAY ==
[2023-06-23 11:21] LABS: Prothrombin Time Whole Bld POC 34.3 sec (11.1-13.5); ~PT, ~INR - Anti Coag Clinic 2.9 (0.9-1.1)
--- NOTE | 2023-06-23 11:46 | MHC.OFFVISCO ---
Intake Intake Visit Reasons: Anticoagulation Allergies doxycyline Adverse Reaction (Intermediate, Uncoded 06/23/23 11:16) Nausea and Vomiting Medication List - Last Reconciled 06/23/23 by Fouzia Mcginnis, COLTON amlodipine 5 mg PO DAILY 90 days ascorbic acid (vitamin C) 1 g PO DAILY atorvastatin 40 mg PO DAILY blood pressure monitor (Blood Pressure Kit) As directed blood sugar diagnostic ([employer] Verio test strips) one time daily blood-glucose meter ([employer] Verio Meter) To check blood glucose once daily budesonide-formoterol 160-4.5 mcg/actuation (Symbicort) 2 puffs PO BID cholecalciferol (vitamin D3) 25 mcg PO DAILY cilostazol 100 mg PO BID cyanocobalamin (vitamin B-12) (Vitamin B-12) 250 mcg PO DAILY enoxaparin (Lovenox) 70 mg (0.7 mL) subcut Q12H 5 days ferrous sulfate (FeroSul) 325 mg PO BID fluticasone propionate 50 mcg/actuation 2 sprays intranasal DAILY gabapentin 300 mg PO DAILY 90 days [garlic clove 1 dose PO NEEDED] ipratropium-albuterol 0.5 mg-3 mg(2.5 mg base)/3 mL 3 mL inhalation Q6H lancets ([employer] Delica Plus Lancet) To test bg daily lancets As directed metformin 500 mg PO DAILY metoprolol succinate ER 25 mg PO DAILY naloxone 4 mg/actuation (Narcan) 4 mg intranasal Q2M 1 day oxycodone-acetaminophen 5-325 mg 1 tab PO Q8H PRN 30 days Ventolin HFA 90 mcg/actuation (albuterol sulfate) 2 puffs inhalation Q4-6H PRN NS walker (Ultra-Light Rollator misc) As directed, ambulate at all times with walker warfarin 5 mg See Protocol PO DAILY warfarin 2.5 mg See Protocol PO DAILY 90 days Nursing Note INR: 2.9 in therapeutic range of 2-3 Medications and supplements reviewed: no changes No changes in health, diet, medications, or supplements, Denies any signs and symptoms of bleeding or bruising or clotting. Bleeding, bruising, clotting discussed Nutritional guidance given pt to have upper teeth removed on 06/28 with a 5 day hold Dose: last dose of warfarin today, procedure on 06/28 then 7.5mg on 06/29 F/U INR: 07/01/23 Patient verbalizes understanding of instructions given Anti-Coag Initial Assessment Social Hx Patient Tobacco Use Status: Never used Tobacco alcohol intake: former Alcohol intake frequency: does not drink Coding Level of Care Code Est Patient Level 1 Diagnoses Current use of anticoagulant therapy Z79.01 Assessment & Plan Assessment & Plan (1) Current use of anticoagulant therapy: Code(s): Z79.01 - retirement (current) 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
== END 2023-06-23 11:58 | disposition home or self-care (01) ==
LOC: HO.ACS 11:10
PROVIDERS: PCP Internal Medicine; Visit Provider Internal Medicine
DX: Z79.01 Long term (current) use of anticoagulants (principal)

== ENCOUNTER → 2023-06-23 11:10 | Outpatient (BNVA) | payer MEDICARE, MEDICAID, SELFPAY | PROVIDERS: PCP Internal Medicine; Visit Provider Internal Medicine | DX: I82.503 Chronic embolism and thrombosis of unspecified deep veins of lower extremity, bilateral (principal); Z79.01 Long term (current) use of anticoagulants; Z51.81 Encounter for therapeutic drug level monitoring | CPT/HCPCS: 85610; 99211 ==

== ENCOUNTER 2023-06-26 10:37 | Outpatient (AMB) | payer MEDICARE, MEDICAID, SELFPAY ==
[2023-06-26 10:54] VITALS: BP 110/67; PULSE 78; RESP 16; O2SAT 78; BMI 24.1
--- NOTE | 2023-06-26 10:54 | MHC.OFFVIS ---
Vital Signs 06/26/23 10:54 Height 5 ft 10 in Weight 168 lb 3 oz BMI 24.1 BP 110/67 Blood Pressure Location Lt brachial Position Sitting Respiration 16 Pulse 78 Pulse Source Pulse Oximeter Pulse Oximetry (%) 78 L Oxygen Delivery Method Room Air Intake Visit Reasons: PILL COUNT/Random UDS Allergies doxycyline Adverse Reaction (Intermediate, Uncoded 06/23/23 11:16) Nausea and Vomiting HPI Comments Details: Bao is a very pleasant 82 year-old male patient who presents to the office today, accompanied by his son, for follow up chronic pain and chronic opioid therapy management. Patient is prescribed oxyocodone-acetaminophen 5-325mg take 1 tablet three times a day. Patient arrived today with the expectation of having 78 pills, he presented 81 pills which were counted in the presence of two staff members and returned to the patient in the original prescription bottle. This demonstrates responsible attitude toward patient's opioid medications. Pain today is reported today as 9/10 and last dose of pain medication was taken at 06:00 this morning. He attributes his worsening pain today to the cold, damp weather. Patient denies side effects including somnolence, weakness, dizziness, nausea or vomiting. Denies any recent issues with constipation and reports he has been having routine bowel movements without difficulty. Previously: He was under care of Dr. Dunn.? Attempts to convert him to buprenorphine in the form of Bel[place] or buprenorphine patch failed. He suffers from postlaminectomy syndrome, he suffers from vascular insufficiency of bilateral lower extremities.? He has negative about neuromodulation. 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, without long-term current use of insulin Effusion of right knee joint Contusion of right knee Hemarthrosis involving knee joint Left shoulder pain Appetite impaired Hearing difficulty Weight loss Cough Non-rheumatic aortic stenosis Chronic pain syndrome Postlaminectomy syndrome Diabetic polyneuropathy Gastric carcinoma Peripheral vascular disease Pneumonia Hyperlipidemia LDL goal <70 COPD (chronic obstructive pulmonary disease) Type 2 diabetes mellitus with hyperglycemia Vitamin B12 deficiency Bronchiectasis Moderate aortic stenosis Compression fracture of L1 lumbar vertebra Recurrent deep vein thrombosis (DVT) Peripheral vascular disease History of gastric cancer BPH (benign prostatic hyperplasia) COPD (chronic obstructive pulmonary disease) Joint pain Surgical History History of colonoscopy Amputation of toe of left foot History of gastrectomy Family History Father Diabetes Cancer Mother Diabetes Brother Lung cancer Social History Household Members: None Household Members Other:: lives alone son checks by daily Housing: Apartment Are you a primary nursing care attendant to a significant other at home: No Do you presently have visiting nurse or other home services: No Alcohol intake: former Year quit: 1969 Patient Tobacco Use Status: Never used Tobacco e-Cigarette/Vaping Use: Never Used Second Hand Smoke Exposure: No service: No Current occupational status: retired Cognitive needs: Yes (walker/power chair) Hearing needs: No Vision needs: Yes (reading) Review of Systems Const All systems reviewed & are unremarkable except as noted in HPI and below Physical Exam Vital Signs: Last Vital Signs Pulse 78 06/26/23 10:54 Resp 16 06/26/23 10:54 BP 110/67 06/26/23 10:54 Pulse Ox 78 L 06/26/23 10:54 Oxygen Delivery Method Room Air 06/26/23 10:54 BMI result Body Mass Index 24.1 General: awake, alert, oriented. Answers questions appropriately. Fully engaged in examination. Skin: warm, dry, intact HEENT: Normocephalic. Hearing intact. Cardiac: External chest normal in appearance. Respiratory: No cough, audible wheezing or stridor. Abdomen: without gross distension. MS: No obvious swelling or deformities. Able to transition from sit to stand unassisted. Ambulates with bilaterally normal heel strike and toe off Neurological: Oriented to person, place, time and situation. Thought process intact. Utilizes a walking stick. Psychiatric: Appropriate mood and affect. Good judgment and insight. Assessment & Plan Assessment & Plan (1) Peripheral vascular disease: Comment: Left lower extremity vascular occluded on Left dorsalis pedis significant disease January 2021 Code(s): I73.9 - Peripheral vascular disease, unspecified Category: Medical (2) Controlled type 2 diabetes mellitus with diabetic nephropathy, without long-term current use of insulin: Code(s): E11.21 - Type 2 diabetes mellitus with diabetic nephropathy Category: Medical (3) Diabetic polyneuropathy: Code(s): E11.42 - Type 2 diabetes mellitus with diabetic polyneuropathy Category: Medical (4) Postlaminectomy syndrome: Code(s): M96.1 - Postlaminectomy syndrome, not elsewhere classified Category: Medical (5) Chronic pain syndrome: Code(s): G89.4 - Chronic pain syndrome Category: Medical Plan Patient is suffering from significant peripheral lower extremity arterial disease and post laminectomy syndrome. Patient is not interested in neuromodulation at this time Masspat was reviewed and without concerns. No obvious signs of diversion, abuse or misuse of the opioid medications. Will send in prescription for oxycodone/acetaminophen 5-325 mg BID with an advanced date of 07/22/23. Patient to follow-up in the office in 1 month, sooner if needed. All questions and concerns have been answered and patient agrees with the plan. Medications: Refilled oxycodone-acetaminophen 5-325 mg Partial Fill only upon patient request. 1 tab PO Q8H PRN 90 tabs 0RF pain 30 days M47.816 - Spondylosis without myelopathy or radiculopathy, lumbar region
== END 2023-06-26 11:11 | disposition home or self-care (01) ==
PROVIDERS: PCP Internal Medicine; Visit Provider Registered Nurse Emergency
DX: I73.9 Peripheral vascular disease, unspecified (principal); E11.21 Type 2 diabetes mellitus with diabetic nephropathy; E11.42 Type 2 diabetes mellitus with diabetic polyneuropathy; M96.1 Postlaminectomy syndrome, not elsewhere classified; G89.4 Chronic pain syndrome
CPT/HCPCS: 99214

== ENCOUNTER → 2023-06-26 10:37 | Outpatient (BNVA) | payer MEDICARE, MEDICAID, SELFPAY | PROVIDERS: PCP Internal Medicine; Visit Provider Registered Nurse Emergency | DX: Z51.81 Encounter for therapeutic drug level monitoring (principal); F11.20 Opioid dependence, uncomplicated; E11.51 Type 2 diabetes mellitus with diabetic peripheral angiopathy without gangrene; E11.21 Type 2 diabetes mellitus with diabetic nephropathy; E11.42 Type 2 diabetes mellitus with diabetic polyneuropathy; M96.1 Postlaminectomy syndrome, not elsewhere classified; G89.4 Chronic pain syndrome | CPT/HCPCS: 99212 ==

== ENCOUNTER 2023-07-01 11:02 | Outpatient (AMB) | payer MEDICARE, MEDICAID, SELFPAY ==
--- NOTE | 2023-07-01 11:15 | MHC.OFFVISCO ---
Intake Intake Visit Reasons: Anticoagulation Allergies doxycyline Adverse Reaction (Intermediate, Uncoded 07/01/23 11:09) Nausea and Vomiting Medication List - Last Reconciled 07/01/23 by Francheska Chung RN amlodipine 5 mg PO DAILY 90 days ascorbic acid (vitamin C) 1 g PO DAILY atorvastatin 40 mg PO DAILY blood pressure monitor (Blood Pressure Kit) As directed blood sugar diagnostic (AccellosTouch Verio test strips) one time daily blood-glucose meter (Probe [employer]uch Verio Meter) To check blood glucose once daily budesonide-formoterol 160-4.5 mcg/actuation (Symbicort) 2 puffs PO BID cholecalciferol (vitamin D3) 25 mcg PO DAILY cilostazol 100 mg PO BID cyanocobalamin (vitamin B-12) (Vitamin B-12) 250 mcg PO DAILY enoxaparin (Lovenox) 70 mg See Protocol subcut Q12H 5 days ferrous sulfate (FeroSul) 325 mg PO BID fluticasone propionate 50 mcg/actuation 2 sprays intranasal DAILY gabapentin 300 mg PO DAILY 90 days [garlic clove 1 dose PO NEEDED] ipratropium-albuterol 0.5 mg-3 mg(2.5 mg base)/3 mL 3 mL inhalation Q6H lancets (Probe [employer]uch Delica Plus Lancet) To test bg daily lancets As directed metformin 500 mg PO DAILY metoprolol succinate ER 25 mg PO DAILY naloxone 4 mg/actuation (Narcan) 4 mg intranasal Q2M 1 day oxycodone-acetaminophen 5-325 mg 1 tab PO Q8H PRN 30 days Ventolin HFA 90 mcg/actuation (albuterol sulfate) 2 puffs inhalation Q4-6H PRN NS walker (Ultra-Light Rollator misc) As directed, ambulate at all times with walker warfarin 5 mg See Protocol PO DAILY warfarin 2.5 mg See Protocol PO DAILY 90 days Nursing Note INR 1.0-?? out of therapeutic range of 2-3 Medications and supplements reviewed Patient status: pt s/p one dental extraction yesterday- warfarin with 6 day hold warfarin, lovenox bridging until thursday nan pt ref further lovenox as it makes him feel 'off'. purpose of lovenox explained Medications or supplements: no changes Diet: appetite - soft foods Denies any signs and symptoms of bleeding or clotting or unusual bruising Bleeding, bruising, clotting discussed - aware risk of clotting Nutritional guidance given: no greens, eat reds to raise Dose: 5mg today, 7.5mg tomm F/U INR Date : thursday07/03/23?? Patient and son verbalizing understanding of instructions given. pcp office dr daniel notified of low inr/dosing and f/u appt. spoke to mars at 1130. 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
== END 2023-07-01 11:37 | disposition home or self-care (01) ==
LOC: HO.ACS 11:02
PROVIDERS: PCP Internal Medicine; Visit Provider Internal Medicine
DX: Z79.01 Long term (current) use of anticoagulants (principal)

== ENCOUNTER → 2023-07-01 11:02 | Outpatient (BNVA) | payer MEDICARE, MEDICAID, SELFPAY | PROVIDERS: PCP Internal Medicine; Visit Provider Internal Medicine | DX: I82.503 Chronic embolism and thrombosis of unspecified deep veins of lower extremity, bilateral (principal); Z51.81 Encounter for therapeutic drug level monitoring; Z79.01 Long term (current) use of anticoagulants | CPT/HCPCS: 85610; 99211 ==

== ENCOUNTER 2023-07-02 10:22 | Emergency (ER) | payer MEDICARE, MEDICAID, SELFPAY ==
--- NOTE | ~2023-07-02 | CT_ITS ---
EXAMINATION: CT ABDOMEN AND PELVIS WITH CONTRAST CLINICAL INFORMATION: Left abdominal wall mass. Question hematoma. COMPARISON: TECHNIQUE: Multidetector volumetric images were obtained from the superior aspect of the liver through the pubic symphysis following administration 85 mL of Omnipaque 350 intravenous contrast. Sagittal and coronal reformatted images were obtained on the technologist's workstation. Oral contrast: No This CT examination was performed using dose optimization techniques as appropriate, variously including the following: *Automated exposure control *Adjustment of mA and/or kV according to patient size (this includes techniques or standardized protocols for targeted exams where dose is matched to indication/reason for exam; i.e. extremities or head) *Use of iterative reconstruction technique DLP: 791 mGy-cm FINDINGS: LUNG BASES: The left hemidiaphragm is chronically mildly elevated. The bronchial mcdonald are diffusely thickened, lungs have mosaic attenuation and there are emphysematous changes. Also, reticular opacities are present within the visualized lower lung zones without subpleural honeycombing. The cardiac chambers are normal in size. No pericardial or pleural effusion. There is three-vessel coronary artery atherosclerotic calcification. The atherosclerotic thoracic aorta is partially included in the [id number]. HEPATOBILIARY: Liver has normal size, shape, and attenuation. There appears to be chronic gallbladder hydrops. The gallbladder is distended up to 5.4 cm transverse and 11.8 cm in length. A few gallstones are detected. The gallbladder previously was distended to 4.9 cm transverse and 10 cm length on 08/25/2017. The common duct measures up to 0.7- 0.8 cm diameter. No evidence of choledocholithiasis. PANCREAS: Chronically atrophied. SPLEEN: Spleen is normal in size. 1.3 cm cyst within the inferior spleen. ADRENAL GLANDS: Normal. KIDNEYS AND URETERS: Kidneys are normal in size. No calculi or hydronephrosis. Simple cysts of both kidneys. No renal imaging follow-up recommended for simple cysts. The ureters are unremarkable. BLADDER: Well-distended with normal wall thickness. No bladder calculi. BOWEL AND PERITONEUM: Prior partial gastrectomy with intact gastrojejunal anastomosis. No dilated bowel loops. No abdominal free fluid or free air. Findings include prominent fecal material within the cecum and ascending colon, and moderate amount of fecal material within the rectum. Correlate for any history of constipation. ABDOMINAL WALL: There is an area of edema and reticulation of subcutaneous fat in the anterior right abdominal wall without focal fluid collection or soft tissue gas in this region. An opacity in subcutaneous tissues of the left abdominal wall has density of 40-50 Hounsfield units, compatible with hematoma, measures approximately 3 x 2.3 x 3.5 cm. VASCULATURE: There is atherosclerotic calcification of the aorta and branch vessels. The infrarenal abdominal aorta measures up to 3 cm AP diameter. The standard recommendation for an abdominal aorta aneurysm of this size is imaging follow-up every 3 years to ensure stability. LYMPH NODES: No pathologic sized lymph nodes in the abdomen or pelvis. No inguinal lymphadenopathy. PELVIC VISCERA: Large prostate gland is 4.8 x 3.8 x 4.5 cm. MUSCULOSKELETAL: No acute or suspicious osseous abnormality. Chondrocalcinosis and multilevel degenerative arthropathy of the thoracolumbar spine. CT/CT abdomen pelvis w IV con IMPRESSION: * There is a hematoma in subcutaneous tissues of the left abdominal wall. Also, there is an area of edema/reticulation of fat in the right abdominal wall. * Atherosclerotic disease of coronary arteries and thoracoabdominal aorta. The infrarenal abdominal aorta measures up to 3 cm AP diameter. * Generalized prominence of stool in the colon; this could be a manifestation of constipation. No evidence of bowel obstruction. * Chronic gallbladder hydrops. This suggests likelihood of gallbladder dysfunction. No gallbladder wall thickening or pericholecystic fluid. There is cholelithiasis but no imaging findings of acute cholecystitis.
[2023-07-02 10:29] VITALS: BP 147/66; PULSE 73; RESP 16; TEMP 36.7; O2SAT 98; BMI 24.1
[2023-07-02 10:50] LABS: MANUAL DIFF FLAG NO
[2023-07-02 11:03] LABS: Anion Gap 12 (12-20); Blood Urea Nitrogen 15 mg/dL (9-16); Calcium 9.3 mg/dL (8.4-10.2); Carbon Dioxide 25 mmol/L (22-29); Chloride 110 mmol/L (96-108); Creatinine Clr Calc Pharmacy 54.5; Estimated Glomerular Filt Rate > 60; Glucose Random 110 mg/dL (60-115); Sodium 143 mmol/L (135-145)
[2023-07-02 11:12] LABS: Prothrombin Time 12.4 SEC (11.1-13.3)
[2023-07-02 11:15] LABS: Partial Thromboplastin Time 31.2 SEC (26.0-36.8)
[2023-07-02 11:16] LABS: Basophils Percent Auto 0.2 % (0-2); Eosinophils Absolute Auto 0.3 X10*3/uL (0.0-0.4); Hematocrit 35.6 % (42.0-52.0); Hemoglobin 11.2 g/dl (14.0-18.0); Imm Gran Abs Auto 0.01 X10*3/uL (0.00-0.03); Imm Gran Pct Auto 0.2 % (0.0-0.4); Lymphocytes Absolute Auto 1.3 X10*3/uL (1.2-4.9); Lymphocytes Percent Auto 20.7 % (20-40); Mean Corpuscular HGB Conc 31.5 g/dl (31.0-36.0); Mean Corpuscular Hemoglobin 28.5 pg (27.0-33.0); Mean Corpuscular Volume 90.6 fL (80.0-98.0); Monocytes Absolute Auto 0.7 X10*3/uL (0.1-1.2); Monocytes Percent Auto 11.9 % (2-11); Neutrophils Absolute Auto 3.8 x10*3/uL (2.0-8.3); Red Blood Count 3.93 X10*6/uL (4.60-5.80); Red Cell Distribution Width 15.5 % (11.0-16.0); White Blood Count 6.2 X10*3/uL (4.8-10.8)
[2023-07-02 11:35] LABS: Mean Platelet Volume 11.8 fL (9.4-12.4); Platelet Count 140 X10*3/uL (160-400)
--- NOTE | 2023-07-02 16:45 | ED_ITS ---
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 Per the patient's son, the patient had a tooth extracted about a week ago He was transitioned to Lovenox from Coumadin prior to the procedure. Postprocedure he was restarted back on Coumadin and is not currently on Lovenox However in 1 of the areas of Lovenox injections the patient has a hardened mass to the abdominal wall. Per the patient's son the area seems to be shrinking compared to yesterday when they 1st noticed it He denies any fevers, the area is not painful unless somebody is pushing on it No other complaints or concerns at this time Related Data Home Medications ?Medication ?Instructions ?Recorded ?Confirmed lancets 28 gauge #100 ea 01/03/20 06/23/23 ascorbic acid (vitamin C) 1,000 mg 1 g PO DAILY 01/27/20 06/23/23 tablet cholecalciferol (vitamin D3) 25 25 mcg PO DAILY 01/27/20 06/23/23 mcg (1,000 unit) capsule ferrous sulfate 325 mg (65 mg 325 mg PO BID 01/27/20 06/23/23 iron) tablet (FeroSul) garlic clove 1 dose PO NEEDED 04/25/22 06/23/23 Previous Rx's ?Medication ?Instructions ?Recorded Ventolin HFA 90 mcg/actuation 2 puff inhalation Q4-6H PRN for 08/13/20 aerosol inhaler (albuterol sulfate) wheezing #54 grams walker (Ultra-Light Rollator misc) #1 ea 06/11/21 ipratropium 0.5 mg-albuterol 3 mg 3 ml inhalation Q6H #180 mL 07/22/21 (2.5 mg base)/3 mL nebulization soln blood-glucose meter (OneTouch #1 ea 12/25/21 Verio Meter) lancets 30 gauge ([facility] #100 ea 01/08/22 Plus Lancet) warfarin 2.5 mg tablet 2.5 mg PO DAILY 90 days #90 tabs 05/28/22 atorvastatin 40 mg tablet 40 mg PO DAILY #90 tabs 07/11/22 metformin 500 mg tablet 500 mg PO DAILY #90 tabs 07/11/22 budesonide-formoterol HFA 160 2 puff PO BID #30.6 ea 11/19/22 mcg-4.5 mcg/actuation aerosol inhaler (Symbicort) warfarin 5 mg tablet 5 mg PO DAILY #90 tabs 11/19/22 fluticasone propionate 50 2 spray intranasal DAILY #48 mL 12/21/22 mcg/actuation nasal spray,suspension blood sugar diagnostic ([facility] #50 ea 01/06/23 Verio test strips) cilostazol 100 mg tablet 100 mg PO BID #180 tabs 01/18/23 naloxone 4 mg/actuation nasal 4 mg intranasal Q2M 1 day #2 ea 01/27/23 spray (Narcan) amlodipine 5 mg tablet 5 mg PO DAILY 90 days #90 tabs 01/28/23 cyanocobalamin (vitamin B-12) 250 250 mcg PO DAILY #90 tabs 03/10/23 mcg tablet (Vitamin B-12) metoprolol succinate 25 mg 25 mg PO DAILY #30 tabs 05/16/23 tablet,extended release 24 hr gabapentin 300 mg capsule 300 mg PO DAILY 90 days #90 caps 05/18/23 blood pressure monitor (Blood #1 ea 06/18/23 Pressure Kit) enoxaparin 80 mg/0.8 mL 70 mg subcut Q12H 5 days #8 mL 06/23/23 subcutaneous syringe (Lovenox) oxycodone-acetaminophen 5 mg-325 1 tab PO Q8H PRN pain 30 days #90 06/26/23 mg tablet tabs Allergies Allergy/AdvReac Type Severity Reaction Status Date / Time doxycycline Allergy Intermediate Nausea and Verified 07/02/23 10:30 Vomiting Review of Systems 2 Constitutional: Constitutional: Denies body ache(s), Denies chills and Denies fever(s) Eyes: Eyes: Denies blurry vision ENT: Denies sore throat Cardiovascular: Cardiovascular: Denies chest pain and Denies dyspnea Respiratory: Respiratory: Denies cough and Denies dyspnea Gastrointestinal: Gastrointestinal: Reports abdominal pain, Denies nausea and Denies vomiting Comments: Abdominal wall mass Musculoskeletal: Musculoskeletal: Denies back pain Integumentary/Breasts: Comments: Bruising to lower abdominal wall and right midabdomen PMFSH Past Medical History Medical History (Updated 07/02/23 @ 20:44 by King Ojeda) Lumbar spondylosis 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, without long-term current use of insulin Effusion of right knee joint Contusion of right knee Hemarthrosis involving knee joint Left shoulder pain Appetite impaired Hearing difficulty Weight loss Cough Non-rheumatic aortic stenosis Chronic pain syndrome Postlaminectomy syndrome Diabetic polyneuropathy Gastric carcinoma Peripheral vascular disease Pneumonia Hyperlipidemia LDL goal <70 COPD (chronic obstructive pulmonary disease) Type 2 diabetes mellitus with hyperglycemia Vitamin B12 deficiency Bronchiectasis Moderate aortic stenosis Compression fracture of L1 lumbar vertebra Recurrent deep vein thrombosis (DVT) Peripheral vascular disease History of gastric cancer BPH (benign prostatic hyperplasia) COPD (chronic obstructive pulmonary disease) Joint pain Surgical History History of colonoscopy Amputation of toe of left foot History of gastrectomy Family History Family History Father Diabetes Cancer Mother Diabetes Brother Lung cancer Social History Social History Household Members: None Household Members Other:: lives alone son checks by daily Housing: Apartment Are you a primary team primary care physician to a significant other at home: No Do you presently have visiting nurse or other home services: No Alcohol intake: former Year quit: 1970 Patient Tobacco Use Status: Never used Tobacco e-Cigarette/Vaping Use: Never Used Second Hand Smoke Exposure: No Advance Directives: No Advance Directives Information Provided: No Do you have a plan to hurt others: No Plan service: No Current occupational status: retired Cognitive needs: Yes (walker/power chair) Hearing needs: No Vision needs: Yes (reading) Physical Exam ED Vital Signs: Vital Signs - 24 hr 07/02/23 10:29 07/02/23 17:33 07/02/23 19:33 Temperature 98.0 F 97.4 F Pulse Rate 73 77 76 Respiratory Rate 16 17 Blood Pressure 147/66 H 159/89 H 132/80 Pulse Oximetry 98 94 95 Oxygen Delivery Method Room Air Room Air Room Air BMI result Body Mass Index 24.1 Const General: healthy appearing, comfortable, no acute distress, alert and awake Nutritional Appearance: well nourished Orientation/consciousness: patient oriented x3 HENMT Head: Yes normocephalic and Yes atraumatic Eyes Eyelids: Yes eyelids normal Conjunctivae: conjunctivae normal Sclerae: sclerae normal Corneas: corneas normal Pupils: Equal, round and reactive pupils present EOM: EOMs intact bilaterally Neck Neck: Yes full ROM Resp Effort & Inspection: normal respiratory effort, able to speak in complete sentences and not labored GI Other: There is moderate ecchymosis to the lower abdominal wall as well as right midabdomen. There is an approximately 3 x 4 cm firm mass that is non mobile in the left abdominal wall within an area of ecchymosis Inspection: No distended Palpation (GI): Soft to palpation, not firm, nontender, no guarding and not rigid Skin General skin exam: elasticity normal Neuro General: patient oriented x3 Cranial nerves: Yes Equal, round and reactive pupils present and Yes Bilaterally intact EOM present Cognition (Neuro): normal cognition Extrem Other: Moving all extremities well without any obvious deformities Course Reevaluation(s) Reevaluation #1: Discussed with general surgery, Dr. Sanches given the hematoma on CT scan. The patient was cleared for discharge from a surgical standpoint. The patient follows up with oncology on Thursday. I recommended he discontinue Coumadin until that appointment or until the hematoma has resolved. He was given return precautions including leg pain, swelling, redness, chest pain or shortness of breath Time: 20:42 Medications Administered Discontinued Medications Generic Name Dose Route Start Last Admin Trade Name Freq PRN Reason Stop Dose Admin Iohexol 100 ml 07/02/23 17:56 07/02/23 17:56 Iohexol 350 Mg/Ml 100 Ml Infus..Btl IV 07/02/23 17:57 85 ml ONCE ONE Administration Medical Decision Making Medical Decision Making MDM Narrative: 82-year-old male past medically as documented above presents for evaluation of a mass to his abdominal wall. The most likely diagnosis is a hematoma from recent Lovenox injections. He has no longer taking these and per the patient's son the area appears to be shrinking. However, given the patient's history of diabetes well as gastric cancer I think it is reasonable to get a CT scan of the abdomen and pelvis to evaluate for underlying mass. Patient is slightly hypertensive to 147/66, otherwise vitals are within normal limits Differential Diagnosis Differential Diagnoses: The differential diagnosis associated with the presentation includes Abdominal wall hematoma Abdominal mass Hernia Soft tissue mass Lab Data MDM Lab Attestation statement: I reviewed the patient's lab results. Patient has no leukocytosis. He has a mild normocytic anemia that is consistent with his baseline labs. There was no left shift. Patient's chloride is slightly elevated to 110 but otherwise chemistries including electrolytes and renal function are within normal limits. 07/02/23 10:46 07/02/23 10:46 Labs: Lab Results 07/02/23 Range/Units 10:46 WBC 6.2 (4.8-10.8) X10*3/uL RBC 3.93 L (4.60-5.80) X10*6/uL Hgb 11.2 L (14.0-18.0) g/dl Hct 35.6 L (42.0-52.0) % MCV 90.6 (80.0-98.0) fL MCH 28.5 (27.0-33.0) pg MCHC 31.5 (31.0-36.0) g/dl RDW 15.5 (11.0-16.0) % Plt Count 140 L D (160-400) X10*3/uL MPV 11.8 (9.4-12.4) fL Immature Gran % (Auto) 0.2 (0.0-0.4) % Neut % (Auto) 62.0 (45-73) % Lymph % (Auto) 20.7 (20-40) % [place] % (Auto) 11.9 H (2-11) % Eos % (Auto) 5.0 H (0-4) % Baso % (Auto) 0.2 (0-2) % Lymph # (Auto) 1.3 (1.2-4.9) X10*3/uL [place] # (Auto) 0.7 (0.1-1.2) X10*3/uL Eos # (Auto) 0.3 (0.0-0.4) X10*3/uL Baso # (Auto) 0.0 (0.0-0.2) X10*3/uL Abs Immat Gran (auto) 0.01 (0.00-0.03) X10*3/uL Absolute Neuts (auto) 3.8 (2.0-8.3) x10*3/uL Absolute Nucleated RBC 0.000 (0.0-0.012) X10*3/uL Nucleated RBC % (auto) 0.0 (0.0-0.2) /100WBC PT 12.4 D (11.1-13.3) SEC INR 1.0 D (0.9-1.1) APTT 31.2 (26.0-36.8) SEC Sodium 143 (135-145) mmol/L Potassium 4.0 (3.3-5.1) mmol/L Chloride 110 H (96-108) mmol/L Carbon Dioxide 25 (22-29) mmol/L Anion Gap 12 (12-20) BUN 15 (9-16) mg/dL Creatinine 1.04 (0.5-1.4) mg/dL Estim Creat Clear Calc 54.5 Estimated GFR > 60 Random Glucose 110 (60-115) mg/dL Calcium 9.3 (8.4-10.2) mg/dL Discharge Plan Discharge Clinical Impression: Abdominal wall hematoma Patient Disposition: Home, Self-Care Instructions: Hematoma (ED) Additional Instructions: You have a hematoma on the left lower abdominal wall. This is likely from your Lovenox injections. I recommend that you hold your Coumadin until the mass has completely resolved or until your primary doctor or oncology tell you to restart it at your appointment on Thursday Return for new or worsening symptoms Prescriptions: No Action albuterol sulfate [Ventolin HFA] 90 mcg/actuation HFA aerosol inhaler 2 puff inhalation Q4-6H PRN (Reason: for wheezing) Qty: 54 1RF ipratropium-albuterol 0.5 mg-3 mg(2.5 mg base)/3 mL solution for nebulization 3 ml inhalation Q6H Qty: 180 1RF (DME) blood-glucose meter [OneTouch Verio Meter] Misc See Rx Instructions .ROUTE .MEDSUPPLY Qty: 1 0RF Rx Instructions: To check blood glucose once daily (DME) lancets [OneTouch Delica Plus Lancet] 30 gauge misc See Rx Instructions .ROUTE .MEDSUPPLY Qty: 100 3RF Rx Instructions: To test bg daily warfarin 2.5 mg tablet 2.5 mg PO DAILY 90 Days Qty: 90 2RF Protocol: Dose Management Condition: Thursday (Week One) Dose/Route: 0 mg Instruction: 0 milliliters Condition: Thursday Dose/Route: 0 mg Instruction: 0 milliliters Condition: Thursday Dose/Route: 5 mg Instruction: 1 x 5 mg milliliter Condition: Thursday Dose/Route: 5 mg Instruction: 1 x 5 mg milliliter Condition: Dose/Route: 7.5 mg Instruction: 1 x 2.5 mg milliliter, 1 x 5 mg milliliter Condition: Thursday Dose/Route: 5 mg Instruction: 1 x 5 mg milliliter Condition: Thursday Dose/Route: 2.5 mg Instruction: 1 x 2.5 mg milliliter Condition: Thursday (Week Two) Dose/Route: 5 mg Instruction: 1 x 5 mg milliliter Condition: Thursday Dose/Route: 5 mg Instruction: 1 x 5 mg milliliter Condition: Thursday Dose/Route: 5 mg Instruction: 1 x 5 mg milliliter Condition: Thursday Dose/Route: 2.5 mg Instruction: 1 x 2.5 mg milliliter Condition: Dose/Route: 5 mg Instruction: 1 x 5 mg milliliter Condition: Thursday Dose/Route: 5 mg Instruction: 1 x 5 mg milliliter Condition: Thursday Dose/Route: 2.5 mg Instruction: 1 x 2.5 mg milliliter Protocol Text: Adjustment Start Date: Thursday07/01/23 INR Value: 1.0 INR Date: 07/01/23 Recheck Date: 07/03/23 Additional Instructions: take 5mg today, 7.5mg tomm no greens, eat reds to raise cont lovenox atorvastatin 40 mg tablet 40 mg PO DAILY Qty: 90 3RF metformin 500 mg tablet 500 mg PO DAILY Qty: 90 3RF budesonide-formoterol [Symbicort] 160-4.5 mcg/actuation HFA aerosol inhaler 2 puff PO BID Qty: 30.6 1RF warfarin 5 mg tablet 5 mg PO DAILY Qty: 90 3RF Protocol: Dose Management Condition: Thursday (Week One) Dose/Route: 0 mg Instruction: 0 milliliters Condition: Thursday Dose/Route: 0 mg Instruction: 0 milliliters Condition: Thursday Dose/Route: 5 mg Instruction: 1 x 5 mg milliliter Condition: Thursday Dose/Route: 5 mg Instruction: 1 x 5 mg milliliter Condition: Dose/Route: 7.5 mg Instruction: 1 x 2.5 mg milliliter, 1 x 5 mg milliliter Condition: Thursday Dose/Route: 5 mg Instruction: 1 x 5 mg milliliter Condition: Thursday Dose/Route: 2.5 mg Instruction: 1 x 2.5 mg milliliter Condition: Thursday ( Two) Dose/Route: 5 mg Instruction: 1 x 5 mg milliliter Condition: Thursday Dose/Route: 5 mg Instruction: 1 x 5 mg milliliter Condition: Thursday Dose/Route: 5 mg Instruction: 1 x 5 mg milliliter Condition: Thursday Dose/Route: 2.5 mg Instruction: 1 x 2.5 mg milliliter Condition: Dose/Route: 5 mg Instruction: 1 x 5 mg milliliter Condition: Thursday Dose/Route: 5 mg Instruction: 1 x 5 mg milliliter Condition: Thursday Dose/Route: 2.5 mg Instruction: 1 x 2.5 mg milliliter Protocol Text: Adjustment Start Date: Thursday07/01/23 INR Value: 1.0 INR Date: 07/01/23 Recheck Date: 07/03/23 Additional Instructions: take 5mg today, 7.5mg tomm no greens, eat reds to raise cont lovenox fluticasone propionate 50 mcg/actuation spray,suspension 2 spray intranasal DAILY Qty: 48 2RF (DME) OneTouch Verio test strips Strip See Rx Instructions .ROUTE .MEDSUPPLY Qty: 50 11RF Rx Instructions: one time daily cilostazol 100 mg tablet 100 mg PO BID Qty: 180 3RF naloxone [Narcan] 4 mg/actuation spray,non-aerosol 4 mg intranasal Q2M 1 Days Qty: 2 1RF Rx Instructions: spray 1 dose into ONE nostril; alternate nostrils w each dose until help arrives cyanocobalamin (vitamin B-12) [Vitamin B-12] 250 mcg tablet 250 mcg PO DAILY Qty: 90 3RF metoprolol succinate 25 mg tablet extended release 24 hr 25 mg PO DAILY Qty: 30 2RF gabapentin 300 mg capsule 300 mg PO DAILY 90 Days Qty: 90 3RF enoxaparin [Lovenox] 80 mg/0.8 mL syringe 70 mg subcut Q12H 5 Days Qty: 8 1RF Protocol: Dose Management Condition: Thursday (Week One) Dose/Route: 0 mg Instruction: 0 milliliters Condition: Thursday Dose/Route: 0 mg Instruction: 0 milliliters Condition: Thursday Dose/Route: 5 mg Instruction: 1 x 5 mg milliliter Condition: Thursday Dose/Route: 5 mg Instruction: 1 x 5 mg milliliter Condition: Dose/Route: 7.5 mg Instruction: 1 x 2.5 mg milliliter, 1 x 5 mg milliliter Condition: Thursday Dose/Route: 5 mg Instruction: 1 x 5 mg milliliter Condition: Thursday Dose/Route: 2.5 mg Instruction: 1 x 2.5 mg milliliter Condition: Thursday (Week Two) Dose/Route: 5 mg Instruction: 1 x 5 mg milliliter Condition: Thursday Dose/Route: 5 mg Instruction: 1 x 5 mg milliliter Condition: Thursday Dose/Route: 5 mg Instruction: 1 x 5 mg milliliter Condition: Thursday Dose/Route: 2.5 mg Instruction: 1 x 2.5 mg milliliter Condition: Dose/Route: 5 mg Instruction: 1 x 5 mg milliliter Condition: Thursday Dose/Route: 5 mg Instruction: 1 x 5 mg milliliter Condition: Thursday Dose/Route: 2.5 mg Instruction: 1 x 2.5 mg milliliter Protocol Text: Adjustment Start Date: Thursday07/01/23 INR Value: 1.0 INR Date: 07/01/23 Recheck Date: 07/03/23 Additional Instructions: take 5mg today, 7.5mg tomm no greens, eat reds to raise cont lovenox cholecalciferol (vitamin D3) 25 mcg (1,000 unit) capsule 25 mcg PO DAILY ascorbic acid (vitamin C) 1,000 mg tablet 1 g PO DAILY ferrous sulfate [FeroSul] 325 mg (65 mg iron) tablet 325 mg PO BID (DME) Ultra-Light Rollator Misc See Rx Instructions .Route Qty: 1 0RF Rx Instructions: As directed, ambulate at all times with walker amlodipine 5 mg tablet 5 mg PO DAILY 90 Days Qty: 90 2RF (DME) blood pressure monitor [Blood Pressure Kit] Kit See Rx Instructions .ROUTE .MEDSUPPLY Qty: 1 0RF Rx Instructions: As directed (DME) lancets 28 gauge misc See Rx Instructions topical DAILY Qty: 100 Rx Instructions: As directed garlic clove 1 unit 1 dose PO NEEDED Patient Comments: pt eats one clove of garlic daily oxycodone-acetaminophen 5-325 mg tablet 1 tab PO Q8H PRN (Reason: pain) 30 Days Qty: 90 0RF Rx Instructions: Partial Fill only upon patient request. Interventions: ED Discharge Assessment Last Done: 07/02/23 20:50 Print Language: Luxembourger
[2023-07-02 17:33] VITALS: BP 159/89; PULSE 77; RESP 17; TEMP 36.3; O2SAT 94
[2023-07-02] MEDS: iohexoL 350 MG/ML 100 ML INFUS..BTL IV (17:56)
[2023-07-02 19:33] VITALS: BP 132/80; PULSE 76; O2SAT 95
[2023-07-02 20:50] VITALS: BP 132/80; PULSE 76; RESP 18; TEMP 36.4; O2SAT 95
== END 2023-07-02 20:51 | disposition home or self-care (01) ==
PROVIDERS: Physician Assistant; Emergency Provider Emergency Medicine; PCP Internal Medicine
DX: S36.32XA Contusion of stomach, initial encounter (principal); R10.2 Pelvic and perineal pain; X58.XXXA Exposure to other specified factors, initial encounter; Y93.9 Activity, unspecified; Y92.9 Unspecified place or not applicable; Y99.8 Other external cause status; Z86.718 Personal history of other venous thrombosis and embolism; Z79.01 Long term (current) use of anticoagulants; Z79.899 Other long term (current) drug therapy
CPT/HCPCS: 36415; 74177; 80048; 85025; 85610; 85730; 99283; Q9967

== ENCOUNTER 2023-07-05 18:44 | Emergency (ER) | payer MEDICARE, MEDICAID, SELFPAY ==
[2023-07-05 19:03] VITALS: BP 123/67; PULSE 81; RESP 18; TEMP 36.8; O2SAT 96; BMI 24.0
[2023-07-05 19:29] LABS: Hematocrit 33.3 % (42.0-52.0); Hemoglobin 10.6 g/dl (14.0-18.0); Mean Corpuscular HGB Conc 31.8 g/dl (31.0-36.0); Mean Corpuscular Hemoglobin 28.9 pg (27.0-33.0); Mean Corpuscular Volume 90.7 fL (80.0-98.0); Mean Platelet Volume 11.6 fL (9.4-12.4); Platelet Count 152 X10*3/uL (160-400); Red Blood Count 3.67 X10*6/uL (4.60-5.80); Red Cell Distribution Width 15.7 % (11.0-16.0); White Blood Count 6.7 X10*3/uL (4.8-10.8)
[2023-07-05 19:35] LABS: INTERNATIONAL NORM RATIO 1.6 (0.9-1.1); Prothrombin Time 19.1 SEC (11.1-13.3)
[2023-07-05 19:52] LABS: Alanine Aminotransferase 24 U/L (0-40); Albumin Level 3.9 g/dL (3.5-5.0); Alkaline Phosphatase 104 U/L (39-117); Anion Gap 13 (12-20); Aspartate Amino Transferase 17 U/L (5-37); Bilirubin Total 0.4 mg/dL (0.0-1.0); Blood Urea Nitrogen 17 mg/dL (9-16); Carbon Dioxide 24 mmol/L (22-29); Chloride 108 mmol/L (96-108); Creatinine Clr Calc Pharmacy 46.5; Estimated Glomerular Filt Rate 57; Glucose Random 218 mg/dL (60-115); Potassium 4.6 mmol/L (3.3-5.1); Sodium 140 mmol/L (135-145); Total Protein 6.3 g/dL (6.5-8.0)
[2023-07-05 20:17] VITALS: BP 129/80; PULSE 71; RESP 14; TEMP 36.8; O2SAT 99
--- NOTE | 2023-07-05 20:44 | ED_ITS ---
HPI - General Adult General Chief complaint: General Medical Stated complaint: same as prev. visit, not getting better Time Seen by Provider: 07/05/23 20:44 Source: patient and family Mode of arrival: ambulatory Limitations: no limitations History of Present Illness HPI narrative: Patient's history of DVT on Coumadin was seen here on 07/02/2023 for abdominal wall hematoma secondary to Lovenox injection does have history of diabetes and remote history of gastric carcinoma and hypertension comes here as patient fell rapid heart rate lasted only for few seconds on arrival patient's heart rate is 80 no chest pain does have severe aortic stenosis with valve area of 1.1 cm with PACs in the past at this time patient denies any symptoms vitals are stable blood pressure on arrival was 123/63 pulse rate 81 saturating 96% on room air Related Data Home Medications ?Medication ?Instructions ?Recorded ?Confirmed lancets 28 gauge #100 ea 01/03/20 06/23/23 ascorbic acid (vitamin C) 1,000 mg 1 g PO DAILY 01/27/20 06/23/23 tablet cholecalciferol (vitamin D3) 25 25 mcg PO DAILY 01/27/20 06/23/23 mcg (1,000 unit) capsule ferrous sulfate 325 mg (65 mg 325 mg PO BID 01/27/20 06/23/23 iron) tablet (FeroSul) garlic clove 1 dose PO NEEDED 04/25/22 06/23/23 Previous Rx's ?Medication ?Instructions ?Recorded Ventolin HFA 90 mcg/actuation 2 puff inhalation Q4-6H PRN for 08/13/20 aerosol inhaler (albuterol sulfate) wheezing #54 grams walker (Ultra-Light Rollator misc) #1 ea 06/11/21 ipratropium 0.5 mg-albuterol 3 mg 3 ml inhalation Q6H #180 mL 07/22/21 (2.5 mg base)/3 mL nebulization soln blood-glucose meter (OneTouch #1 ea 12/25/21 Verio Meter) lancets 30 gauge (OneTouch Delica #100 ea 01/08/22 Plus Lancet) warfarin 2.5 mg tablet 2.5 mg PO DAILY 90 days #90 tabs 05/28/22 atorvastatin 40 mg tablet 40 mg PO DAILY #90 tabs 07/11/22 metformin 500 mg tablet 500 mg PO DAILY #90 tabs 07/11/22 budesonide-formoterol HFA 160 2 puff PO BID #30.6 ea 11/19/22 mcg-4.5 mcg/actuation aerosol inhaler (Symbicort) warfarin 5 mg tablet 5 mg PO DAILY #90 tabs 11/19/22 fluticasone propionate 50 2 spray intranasal DAILY #48 mL 12/21/22 mcg/actuation nasal spray,suspension blood sugar diagnostic (OneTouch #50 ea 01/06/23 Verio test strips) cilostazol 100 mg tablet 100 mg PO BID #180 tabs 01/18/23 naloxone 4 mg/actuation nasal 4 mg intranasal Q2M 1 day #2 ea 01/27/23 spray (Narcan) amlodipine 5 mg tablet 5 mg PO DAILY 90 days #90 tabs 01/28/23 cyanocobalamin (vitamin B-12) 250 250 mcg PO DAILY #90 tabs 03/10/23 mcg tablet (Vitamin B-12) metoprolol succinate 25 mg 25 mg PO DAILY #30 tabs 05/16/23 tablet,extended release 24 hr gabapentin 300 mg capsule 300 mg PO DAILY 90 days #90 caps 05/18/23 blood pressure monitor (Blood #1 ea 06/18/23 Pressure Kit) enoxaparin 80 mg/0.8 mL 70 mg subcut Q12H 5 days #8 mL 06/23/23 subcutaneous syringe (Lovenox) oxycodone-acetaminophen 5 mg-325 1 tab PO Q8H PRN pain 30 days #90 06/26/23 mg tablet tabs Allergies Allergy/AdvReac Type Severity Reaction Status Date / Time doxycycline Allergy Intermediate Nausea and Verified 07/05/23 19:04 Vomiting Review of Systems 2 Review of Systems: Yes all other systems are reviewed and are negative [facility] Past Medical History 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, without long-term current use of insulin Effusion of right knee joint Contusion of right knee Hemarthrosis involving knee joint Left shoulder pain Appetite impaired Hearing difficulty Weight loss Cough Non-rheumatic aortic stenosis Chronic pain syndrome Postlaminectomy syndrome Diabetic polyneuropathy Gastric carcinoma Peripheral vascular disease Pneumonia Hyperlipidemia LDL goal <70 COPD (chronic obstructive pulmonary disease) Type 2 diabetes mellitus with hyperglycemia Vitamin B12 deficiency Bronchiectasis Moderate aortic stenosis Compression fracture of L1 lumbar vertebra Recurrent deep vein thrombosis (DVT) Peripheral vascular disease History of gastric cancer BPH (benign prostatic hyperplasia) COPD (chronic obstructive pulmonary disease) Joint pain Surgical History History of colonoscopy Amputation of toe of left foot History of gastrectomy Family History Family History Father Diabetes Cancer Mother Diabetes Brother Lung cancer Social History Social History Household Members: None Household Members Other:: lives alone son checks by daily Housing: Apartment Are you a primary gericare aide teacher to a significant other at home: No Do you presently have visiting nurse or other home services: No Alcohol intake: former Year quit: 1970 Patient Tobacco Use Status: Never used Tobacco Smoked in Last 30 Days: No e-Cigarette/Vaping Use: Never Used Second Hand Smoke Exposure: No Advance Directives: No Advance Directives Information Provided: No Do you have a plan to hurt others: No Plan service: No Current occupational status: retired Cognitive needs: Yes (walker/power chair) Hearing needs: No Vision needs: Yes (reading) Physical Exam ED Vital Signs: Vital Signs - 24 hr 07/05/23 19:03 07/05/23 20:17 07/05/23 21:58 Temperature 98.2 F 98.3 F 98 F Pulse Rate 81 71 71 Respiratory Rate 18 14 14 Blood Pressure 123/67 129/80 129/80 Pulse Oximetry 96 99 99 Oxygen Delivery Method Room Air Room Air Room Air BMI result Body Mass Index 24.0 Appearance: Alert. Oriented X3. No acute distress. Eyes: No pallor or icterus ENT: Pharynx normal. Oral Mucosa moist Neck: Normal inspection. Neck supple. CVS: Normal heart rate and rhythm. Pulses normal. Systolic ejection murmur at the base 4/6 Respiratory: No respiratory distress. Equal air entry bilateral, no wheezing/rales/rhonchi Abdomen: Soft and nontender. Bowel sounds are present, no mass palpable, no CVA tenderness Skin: Skin warm and dry. Normal skin color. Normal skin turgor. Hematoma on the abdominal wall Extremities: No lower extremity edema. No calf tenderness Neuro: Oriented X 3. No motor deficit. No sensory deficit.No cerebellar signs , cranial nerves II-XII intact Medical Decision Making Lab Data MDM Lab Attestation statement: I reviewed the patient's lab results. 07/05/23 19:25 07/05/23 19:25 Labs: Lab Results 07/05/23 Range/Units 19:25 WBC 6.7 (4.8-10.8) X10*3/uL RBC 3.67 L (4.60-5.80) X10*6/uL Hgb 10.6 L (14.0-18.0) g/dl Hct 33.3 L (42.0-52.0) % MCV 90.7 (80.0-98.0) fL MCH 28.9 (27.0-33.0) pg MCHC 31.8 (31.0-36.0) g/dl RDW 15.7 (11.0-16.0) % Plt Count 152 L (160-400) X10*3/uL MPV 11.6 (9.4-12.4) fL Absolute Nucleated RBC 0.000 (0.0-0.012) X10*3/uL Nucleated RBC % (auto) 0.0 (0.0-0.2) /100WBC PT 19.1 H D (11.1-13.3) SEC INR 1.6 H (0.9-1.1) Sodium 140 (135-145) mmol/L Potassium 4.6 (3.3-5.1) mmol/L Chloride 108 (96-108) mmol/L Carbon Dioxide 24 (22-29) mmol/L Anion Gap 13 (12-20) BUN 17 H (9-16) mg/dL Creatinine 1.22 (0.5-1.4) mg/dL Estim Creat Clear Calc 46.5 Estimated GFR 57 Random Glucose 218 H (60-115) mg/dL Calcium 9.0 (8.4-10.2) mg/dL Total Bilirubin 0.4 (0.0-1.0) mg/dL AST 17 (5-37) U/L ALT 24 (0-40) U/L Alkaline Phosphatase 104 (39-117) U/L Total Protein 6.3 L (6.5-8.0) g/dL Albumin 3.9 (3.5-5.0) g/dL Discharge Plan Discharge Clinical Impression: Heart palpitations Patient Disposition: Home, Self-Care Instructions: Heart Palpitations (ED) Additional Instructions: Likely have premature heartbeats causing the palpitation Follow with your PCP/russian rubber for further management including Holter monitoring if needed Prescriptions: No Action albuterol sulfate [Ventolin HFA] 90 mcg/actuation HFA aerosol inhaler 2 puff inhalation Q4-6H PRN (Reason: for wheezing) Qty: 54 1RF ipratropium-albuterol 0.5 mg-3 mg(2.5 mg base)/3 mL solution for nebulization 3 ml inhalation Q6H Qty: 180 1RF (DME) blood-glucose meter [OneTouch Verio Meter] Misc See Rx Instructions .ROUTE .MEDSUPPLY Qty: 1 0RF Rx Instructions: To check blood glucose once daily (DME) lancets [OneTouch Delica Plus Lancet] 30 gauge misc See Rx Instructions .ROUTE .MEDSUPPLY Qty: 100 3RF Rx Instructions: To test bg daily warfarin 2.5 mg tablet 2.5 mg PO DAILY 90 Days Qty: 90 2RF Protocol: Dose Management Condition: Thursday (Week One) Dose/Route: 0 mg Instruction: 0 milliliters Condition: Thursday Dose/Route: 0 mg Instruction: 0 milliliters Condition: Thursday Dose/Route: 5 mg Instruction: 1 x 5 mg milliliter Condition: Thursday Dose/Route: 5 mg Instruction: 1 x 5 mg milliliter Condition: Dose/Route: 7.5 mg Instruction: 1 x 2.5 mg milliliter, 1 x 5 mg milliliter Condition: Thursday Dose/Route: 5 mg Instruction: 1 x 5 mg milliliter Condition: Thursday Dose/Route: 2.5 mg Instruction: 1 x 2.5 mg milliliter Condition: Thursday (Week Two) Dose/Route: 5 mg Instruction: 1 x 5 mg milliliter Condition: Thursday Dose/Route: 5 mg Instruction: 1 x 5 mg milliliter Condition: Thursday Dose/Route: 5 mg Instruction: 1 x 5 mg milliliter Condition: Thursday Dose/Route: 2.5 mg Instruction: 1 x 2.5 mg milliliter Condition: Dose/Route: 5 mg Instruction: 1 x 5 mg milliliter Condition: Thursday Dose/Route: 5 mg Instruction: 1 x 5 mg milliliter Condition: Thursday Dose/Route: 2.5 mg Instruction: 1 x 2.5 mg milliliter Protocol Text: Adjustment Start Date: Thursday07/01/23 INR Value: 1.0 INR Date: 07/01/23 Recheck Date: 07/03/23 Additional Instructions: take 5mg today, 7.5mg tomm no greens, eat reds to raise cont lovenox atorvastatin 40 mg tablet 40 mg PO DAILY Qty: 90 3RF metformin 500 mg tablet 500 mg PO DAILY Qty: 90 3RF budesonide-formoterol [Symbicort] 160-4.5 mcg/actuation HFA aerosol inhaler 2 puff PO BID Qty: 30.6 1RF warfarin 5 mg tablet 5 mg PO DAILY Qty: 90 3RF Protocol: Dose Management Condition: Thursday (Week One) Dose/Route: 0 mg Instruction: 0 milliliters Condition: Thursday Dose/Route: 0 mg Instruction: 0 milliliters Condition: Thursday Dose/Route: 5 mg Instruction: 1 x 5 mg milliliter Condition: Thursday Dose/Route: 5 mg Instruction: 1 x 5 mg milliliter Condition: Dose/Route: 7.5 mg Instruction: 1 x 2.5 mg milliliter, 1 x 5 mg milliliter Condition: Thursday Dose/Route: 5 mg Instruction: 1 x 5 mg milliliter Condition: Thursday Dose/Route: 2.5 mg Instruction: 1 x 2.5 mg milliliter Condition: Thursday (Week Two) Dose/Route: 5 mg Instruction: 1 x 5 mg milliliter Condition: Thursday Dose/Route: 5 mg Instruction: 1 x 5 mg milliliter Condition: Thursday Dose/Route: 5 mg Instruction: 1 x 5 mg milliliter Condition: Thursday Dose/Route: 2.5 mg Instruction: 1 x 2.5 mg milliliter Condition: Dose/Route: 5 mg Instruction: 1 x 5 mg milliliter Condition: Thursday Dose/Route: 5 mg Instruction: 1 x 5 mg milliliter Condition: Thursday Dose/Route: 2.5 mg Instruction: 1 x 2.5 mg milliliter Protocol Text: Adjustment Start Date: Thursday07/01/23 INR Value: 1.0 INR Date: 07/01/23 Recheck Date: 07/03/23 Additional Instructions: take 5mg today, 7.5mg tomm no greens, eat reds to raise cont lovenox fluticasone propionate 50 mcg/actuation spray,suspension 2 spray intranasal DAILY Qty: 48 2RF (DME) OneTouch Verio test strips Strip See Rx Instructions .ROUTE .MEDSUPPLY Qty: 50 11RF Rx Instructions: one time daily cilostazol 100 mg tablet 100 mg PO BID Qty: 180 3RF naloxone [Narcan] 4 mg/actuation spray,non-aerosol 4 mg intranasal Q2M 1 Days Qty: 2 1RF Rx Instructions: spray 1 dose into ONE nostril; alternate nostrils w each dose until help arrives cyanocobalamin (vitamin B-12) [Vitamin B-12] 250 mcg tablet 250 mcg PO DAILY Qty: 90 3RF metoprolol succinate 25 mg tablet extended release 24 hr 25 mg PO DAILY Qty: 30 2RF gabapentin 300 mg capsule 300 mg PO DAILY 90 Days Qty: 90 3RF enoxaparin [Lovenox] 80 mg/0.8 mL syringe 70 mg subcut Q12H 5 Days Qty: 8 1RF Protocol: Dose Management Condition: Thursday (Week One) Dose/Route: 0 mg Instruction: 0 milliliters Condition: Thursday Dose/Route: 0 mg Instruction: 0 milliliters Condition: Thursday Dose/Route: 5 mg Instruction: 1 x 5 mg milliliter Condition: Thursday Dose/Route: 5 mg Instruction: 1 x 5 mg milliliter Condition: Dose/Route: 7.5 mg Instruction: 1 x 2.5 mg milliliter, 1 x 5 mg milliliter Condition: Thursday Dose/Route: 5 mg Instruction: 1 x 5 mg milliliter Condition: Thursday Dose/Route: 2.5 mg Instruction: 1 x 2.5 mg milliliter Condition: Thursday (Week Two) Dose/Route: 5 mg Instruction: 1 x 5 mg milliliter Condition: Thursday Dose/Route: 5 mg Instruction: 1 x 5 mg milliliter Condition: Thursday Dose/Route: 5 mg Instruction: 1 x 5 mg milliliter Condition: Thursday Dose/Route: 2.5 mg Instruction: 1 x 2.5 mg milliliter Condition: Dose/Route: 5 mg Instruction: 1 x 5 mg milliliter Condition: Thursday Dose/Route: 5 mg Instruction: 1 x 5 mg milliliter Condition: Thursday Dose/Route: 2.5 mg Instruction: 1 x 2.5 mg milliliter Protocol Text: Adjustment Start Date: Thursday07/01/23 INR Value: 1.0 INR Date: 07/01/23 Recheck Date: 07/03/23 Additional Instructions: take 5mg today, 7.5mg tomm no greens, eat reds to raise cont lovenox cholecalciferol (vitamin D3) 25 mcg (1,000 unit) capsule 25 mcg PO DAILY ascorbic acid (vitamin C) 1,000 mg tablet 1 g PO DAILY ferrous sulfate [FeroSul] 325 mg (65 mg iron) tablet 325 mg PO BID (DME) Ultra-Light Rollator Misc See Rx Instructions .Route Qty: 1 0RF Rx Instructions: As directed, ambulate at all times with walker amlodipine 5 mg tablet 5 mg PO DAILY 90 Days Qty: 90 2RF (DME) blood pressure monitor [Blood Pressure Kit] Kit See Rx Instructions .ROUTE .MEDSUPPLY Qty: 1 0RF Rx Instructions: As directed (DME) lancets 28 gauge misc See Rx Instructions topical DAILY Qty: 100 Rx Instructions: As directed garlic clove 1 unit 1 dose PO NEEDED Patient Comments: pt eats one clove of garlic daily oxycodone-acetaminophen 5-325 mg tablet 1 tab PO Q8H PRN (Reason: pain) 30 Days Qty: 90 0RF Rx Instructions: Partial Fill only upon patient request. Interventions: ED Discharge Assessment Last Done: 07/05/23 21:58 Discharge Date/Time: 07/05/23 21:59 Print Language: Cameroonian
--- NOTE | 2023-07-05 21:35 | ECG_ITS ---
Test Reason : PALPITATIONS Blood Pressure : / mmHG Vent. Rate : 077 BPM Atrial Rate : 077 BPM P-R Int : 208 ms QRS Dur : 106 ms QT Int : 376 ms P-R-T Axes : 082 -42 023 degrees QTc Int : 425 ms Normal sinus rhythm Left axis deviation Left anterior fascicular block Abnormal ECG When compared with ECG of 29-OCT-2022 11:42, Premature supraventricular complexes are no longer Present Referred By: Antwon Asif Electronically Signed By:TANYA DE
[2023-07-05 21:58] VITALS: BP 129/80; PULSE 71; RESP 14; TEMP 36.6; O2SAT 99
== END 2023-07-05 21:59 | disposition home or self-care (01) ==
PROVIDERS: Emergency Provider Internal Medicine; PCP Internal Medicine
DX: R00.2 Palpitations (principal); I35.0 Nonrheumatic aortic (valve) stenosis; E11.9 Type 2 diabetes mellitus without complications; I10 Essential (primary) hypertension; J44.9 Chronic obstructive pulmonary disease, unspecified; Z85.028 Personal history of other malignant neoplasm of stomach; Z86.711 Personal history of pulmonary embolism; Z86.718 Personal history of other venous thrombosis and embolism; Z79.01 Long term (current) use of anticoagulants
CPT/HCPCS: 36415; 80053; 82378; 85027; 85610; 93005; 99283; 99284

== ENCOUNTER → 2023-07-05 21:35 | Outpatient (BNV) | payer MEDICARE, MEDICAID, SELFPAY | PROVIDERS: Emergency Provider Internal Medicine; PCP Internal Medicine; Visit Provider Internal Medicine | DX: R00.2 Palpitations (principal); R94.31 Abnormal electrocardiogram [ECG] [EKG] | CPT/HCPCS: 93010 ==

== ENCOUNTER 2023-07-07 10:19 | Outpatient (AMB) | payer MEDICARE, MEDICAID, SELFPAY ==
[2023-07-07 10:39] VITALS: BP 120/62; PULSE 67; O2SAT 98; BMI 23.5
--- NOTE | 2023-07-07 10:39 | A.OFFPC_ITS ---
Vital Signs 3 07/07/23 10:39 Height 5 ft 10 in Weight 164 lb BMI 23.5 BP 120/62 Blood Pressure Location Lt brachial Position Sitting Pulse 67 Pulse Source Pulse Oximeter Pulse Oximetry (%) 98 Oxygen Delivery Method Room Air Intake Visit Reasons: [facility] Allergies doxycycline Allergy (Intermediate, Verified 07/07/23 10:39) Nausea and Vomiting Tobacco use date assessed: 06/18/23 Fall risk assessment: No Falls in past year Last assessed Fall Risk: 07/07/23 Dental Screening Dental Screen Date: 07/07/23 Did you have a dental visit in the last 12 months?: No Did you have a dental problem in the last 6 months where you did not have access to dental care?: No Was dental information given to patient?: No HPI [facility] 2 HPI0 Details 82-year-old male with history of gastric cancer 2001. controlled diabetes mellitus chronic kidney disease hypertension hypercholesterolemia history of post laminectomy syndrome with pain management history of recurrent deep vein thrombosis on anticoagulation and COPD last seen in June 2023 earlier this month. Review of the notes was seen by hematology oncology gastric cancer status post gastrectomy 2001. Patient continues to be on Coumadin for the recurrent thromboembolism. Patient was seen in the ER July 04 having history of abdominal wall hematoma secondary to Lovenox injection patient does have aortic stenosis at 1.1 cm no new medication given patient did have the tooth extraction done. But the Lovenox has had abdominal wall hematoma. 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, without long-term current use of insulin Effusion of right knee joint Contusion of right knee Hemarthrosis involving knee joint Left shoulder pain Appetite impaired Hearing difficulty Weight loss Cough Non-rheumatic aortic stenosis Chronic pain syndrome Postlaminectomy syndrome Diabetic polyneuropathy Gastric carcinoma Peripheral vascular disease Pneumonia Hyperlipidemia LDL goal <70 COPD (chronic obstructive pulmonary disease) Type 2 diabetes mellitus with hyperglycemia Vitamin B12 deficiency Bronchiectasis Moderate aortic stenosis Compression fracture of L1 lumbar vertebra Recurrent deep vein thrombosis (DVT) Peripheral vascular disease History of gastric cancer BPH (benign prostatic hyperplasia) COPD (chronic obstructive pulmonary disease) Joint pain Surgical History History of colonoscopy Amputation of toe of left foot History of gastrectomy Family History Father Diabetes Cancer Mother Diabetes Brother Lung cancer Social History Household Members: None Household Members Other:: lives alone son checks by daily Housing: Apartment Are you a primary healthcare business analyst to a significant other at home: No Do you presently have visiting nurse or other home services: No Alcohol intake: former Year quit: 1969 Patient Tobacco Use Status: Never used Tobacco e-Cigarette/Vaping Use: Never Used Second Hand Smoke Exposure: No service: No Current occupational status: retired Cognitive needs: Yes (walker/power chair) Hearing needs: No Vision needs: Yes (reading) Questionnaire PHQ-9 Over the last 2 weeks, how often have you been bothered by any of the following problems? 1. Little interest or pleasure in doing things: not at all 2. Feeling down, depressed, or hopeless: not at all 3. Trouble falling or staying asleep, or sleeping too much: not at all 4. Feeling tired or having little energy: not at all 5. Poor appetite or overeating: not at all 6. Feeling bad about yourself - or that you are a failure or have let yourself or your family down: not at all 7. Trouble concentrating on things, such as reading the newspaper or watching television: not at all 8. Moving or speaking so slowly that other people could have noticed. Or the opposite - being so fidgety or restless that you have been moving around a lot more than usual: not at all 9. Thoughts that you would be better off or of hurting yourself in some way: not at all Total score: 0 Depression Screening Interpretation: Negative Depression Screening Done: Yes Source: Developed by Drs. Irwin Adrian, Teresa Pickard, Billy Linda and colleagues, with an educational janina from [employer]. Thrive Questionnaire Date Thrive assessed: 06/18/23 AUDIT C Alcohol Use Questionnaire (AUDIT-C) 1. How often do you have a drink containing alcohol?: Never 3. How often do you have six or more drinks on one occasion?: Never Total Score: 0 Score Reviewed/Action Taken: No SHANNON-7 AMB Questionnaire SHANNON-7 Date SHANNON - 7 assessed: 03/17/23 Source: Developed by DrsDesiree Adrian, Teresa Pickard, Billy Linda and colleagues, with an educational janina from [employer]. Physical exam (Primary Care) Vital Signs: Last Vital Signs Pulse 67 07/07/23 10:39 BP 120/62 07/07/23 10:39 Pulse Ox 98 07/07/23 10:39 Oxygen Delivery Method Room Air 07/07/23 10:39 BMI result Body Mass Index 23.5 Tobacco/Smoking Status: Tobacco use Status Tobacco use date assessed 06/18/23 07/07/23 10:45 Patient Tobacco Use Status Never used Tobacco 07/07/23 10:45 e-Cigarette/Vaping Use Never Used 07/07/23 10:45 PHQ-9: PHQ-9 Score PHQ-9: Total score 0 07/07/23 11:23 Depression Screening Interpretation: Negative Thrive Assessment: Date of Thrive Assessment Date Thrive assessed 06/18/23 07/07/23 10:45 Const General: alert; No acute distress Eyes Conjunctivae: conjunctivae normal Resp Auscultation: clear to auscultation bilaterally Cardio Rate: regular rate Rhythm: regular rhythm GI Inspection: Yes normal to inspection Skin Full body images: 2 1. 2 cm hematoma with bruise 2. 3 cm hematoma Extrem General: Yes normal to inspection and No edema Assessment and Plan Assessment & Plan (1) Abdominal wall hematoma: Code(s): S30.1XXA - Contusion of abdominal wall, initial encounter Plan: Resolving (2) Recurrent deep vein thrombosis (DVT): Comment: Left lower extremity bypass graft Code(s): I82.409 - Acute embolism and thrombosis of unspecified deep veins of unspecified lower extremity Plan: Continue with anticoagulation (3) Moderate aortic stenosis: Comment: August 2019 1.5 cm sq [place] and cardiovascular As August 2021 1.1 cm2, March 2022 1.3 cm2 May 2023 1.18 cm squared Code(s): I35.0 - Nonrheumatic aortic (valve) stenosis Plan: Continue to follow-up with aortic stenosis 05/2023 last Echo (4) Anemia: Code(s): D64.9 - Anemia, unspecified Plan: hematology requested blood work in 6 months Coding Level of Care Code Est Pt Level 4 (03505) Diagnoses Abdominal wall hematoma S30.1XXA Recurrent deep vein thrombosis (DVT) I82.409 Moderate aortic stenosis I35.0 Anemia D64.9
== END 2023-07-07 13:53 | disposition home or self-care (01) ==
PROVIDERS: PCP Internal Medicine; Visit Provider Internal Medicine
DX: S30.1XXA Contusion of abdominal wall, initial encounter (principal); I82.409 Acute embolism and thrombosis of unspecified deep veins of unspecified lower extremity; I35.0 Nonrheumatic aortic (valve) stenosis; D64.9 Anemia, unspecified
CPT/HCPCS: 99214

== ENCOUNTER 2023-07-08 12:39 | Outpatient (AMB) | payer MEDICARE, MEDICAID, SELFPAY ==
[2023-07-08 12:55] LABS: Prothrombin Time Whole Bld POC 21.7 sec (11.1-13.5); ~PT, ~INR - Anti Coag Clinic 1.8 (0.9-1.1)
--- NOTE | 2023-07-08 13:10 | MHC.OFFVISCO ---
Intake Intake Visit Reasons: Anticoagulation Allergies doxycycline Allergy (Intermediate, Verified 07/08/23 12:45) Nausea and Vomiting Medication List - Last Reconciled 07/08/23 by Isabela Freeman RN amlodipine 5 mg PO DAILY 90 days ascorbic acid (vitamin C) 1 g PO DAILY atorvastatin 40 mg PO DAILY blood pressure monitor (Blood Pressure Kit) As directed blood sugar diagnostic (OneTouch Verio test strips) one time daily blood-glucose meter ([employer] Verio Meter) To check blood glucose once daily budesonide-formoterol 160-4.5 mcg/actuation (Symbicort) 2 puffs PO BID cholecalciferol (vitamin D3) 25 mcg PO DAILY cilostazol 100 mg PO BID cyanocobalamin (vitamin B-12) (Vitamin B-12) 250 mcg PO DAILY enoxaparin (Lovenox) 70 mg See Protocol subcut Q12H 5 days ferrous sulfate (FeroSul) 325 mg PO BID fluticasone propionate 50 mcg/actuation 2 sprays intranasal DAILY gabapentin 300 mg PO DAILY 90 days [garlic clove 1 dose PO NEEDED] ipratropium-albuterol 0.5 mg-3 mg(2.5 mg base)/3 mL 3 mL inhalation Q6H lancets (Today [employer] Delica Plus Lancet) To test bg daily lancets As directed metformin 500 mg PO DAILY metoprolol succinate ER 25 mg PO DAILY naloxone 4 mg/actuation (Narcan) 4 mg intranasal Q2M 1 day oxycodone-acetaminophen 5-325 mg 1 tab PO Q8H PRN 30 days Ventolin HFA 90 mcg/actuation (albuterol sulfate) 2 puffs inhalation Q4-6H PRN NS walker (Ultra-Light Rollator misc) As directed, ambulate at all times with walker warfarin 5 mg See Protocol PO DAILY warfarin 2.5 mg See Protocol PO DAILY 90 days Nursing Note PT.RESUMED WARFARIN ON 07/03 AT USUAL DOSE. HE HAS HAD NO CP,SOB,DIET/MED CHANGES,FALLS OR SX OF BLEEDING. AREA OF HEMATOMA ON ABD.IS RESOLVING WELL. HE HAS NO PAIN. 5MGM TODAY THEN RESUME USUAL DOSE AND FOLLOW UP HERE IN 1 WEEK. NO GREENS 1-2 DAYS GOOD UNDERSATANDING VERB. BY PT.AND SON. Anti-Coag Initial Assessment Social Hx Patient Tobacco Use Status: Never used Tobacco alcohol intake: former Alcohol intake frequency: does not drink Coding Level of Care Code Est Patient Level 1 Diagnoses Current use of anticoagulant therapy Z79.01 Assessment & Plan Assessment & Plan (1) Current use of anticoagulant therapy: Code(s): Z79.01 - USP (current) 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 Medications: Discontinued enoxaparin (Lovenox) Discontinued Reason: Patient no longer taking 70 mg See Protocol subcut Q12H 5 days 8 mL 1RF I82.409 - Acute embolism and thrombosis of unspecified deep veins of unspecified lower extremity
== END 2023-07-08 13:29 | disposition home or self-care (01) ==
LOC: HO.ACS 12:39
PROVIDERS: PCP Internal Medicine; Visit Provider Internal Medicine
DX: Z79.01 Long term (current) use of anticoagulants (principal)

== ENCOUNTER → 2023-07-08 12:39 | Outpatient (BNVA) | payer MEDICARE, MEDICAID, SELFPAY | PROVIDERS: PCP Internal Medicine; Visit Provider Internal Medicine | DX: I82.503 Chronic embolism and thrombosis of unspecified deep veins of lower extremity, bilateral (principal); Z51.81 Encounter for therapeutic drug level monitoring; Z79.01 Long term (current) use of anticoagulants | CPT/HCPCS: 85610; 99211 ==

== ENCOUNTER 2023-07-15 13:01 | Outpatient (AMB) | payer MEDICARE, MEDICAID, SELFPAY ==
[2023-07-15 13:10] LABS: Prothrombin Time Whole Bld POC 32.1 sec (11.1-13.5); ~PT, ~INR - Anti Coag Clinic 2.7 (0.9-1.1)
--- NOTE | 2023-07-15 13:19 | MHC.OFFVISCO ---
Intake Intake Visit Reasons: Anticoagulation Allergies doxycycline Allergy (Intermediate, Verified 07/08/23 12:45) Nausea and Vomiting Medication List - Last Reconciled 07/15/23 by Rakel Ngo RN amlodipine 5 mg PO DAILY 90 days ascorbic acid (vitamin C) 1 g PO DAILY atorvastatin 40 mg PO DAILY blood pressure monitor (Blood Pressure Kit) As directed blood sugar diagnostic (HeadroomTouch Verio test strips) one time daily blood-glucose meter (HeadroomTouch Verio Meter) To check blood glucose once daily budesonide-formoterol 160-4.5 mcg/actuation (Symbicort) 2 puffs PO BID cholecalciferol (vitamin D3) 25 mcg PO DAILY cilostazol 100 mg PO BID cyanocobalamin (vitamin B-12) (Vitamin B-12) 250 mcg PO DAILY ferrous sulfate (FeroSul) 325 mg PO BID fluticasone propionate 50 mcg/actuation 2 sprays intranasal DAILY gabapentin 300 mg PO DAILY 90 days [garlic clove 1 dose PO NEEDED] ipratropium-albuterol 0.5 mg-3 mg(2.5 mg base)/3 mL 3 mL inhalation Q6H lancets (VastParkuch Delica Plus Lancet) To test bg daily lancets As directed metformin 500 mg PO DAILY metoprolol succinate ER 25 mg PO DAILY naloxone 4 mg/actuation (Narcan) 4 mg intranasal Q2M 1 day oxycodone-acetaminophen 5-325 mg 1 tab PO Q8H PRN 30 days Ventolin HFA 90 mcg/actuation (albuterol sulfate) 2 puffs inhalation Q4-6H PRN NS walker ([facility] [place]) As directed, ambulate at all times with walker warfarin 5 mg See Protocol PO DAILY warfarin 2.5 mg See Protocol PO DAILY 90 days Nursing Note INR: 2.7 in therapeutic range Medications and supplements reviewed HEALING FROM EXTRACTION - FEELING BETTER, BRUISE FROM LOVENOX HEALING - FADING IN COLOR denies any signs and symptoms of bleeding or bruising or clotting. Bleeding, bruising, clotting discussed Nutritional guidance given - RESUME WEEKLY GREENS - NOT TOO MUCH WATERCRESS Dose: RESUME 2.5MG X 2 DAYS/ 5MG X 5 DAYS F/U INR: 2 WEEKS Patient verbalizes understanding of instructions given Anti-Coag Initial Assessment Social Hx Patient Tobacco Use Status: Never used Tobacco alcohol intake: former Alcohol intake frequency: does not drink Coding Level of Care Code Est Patient Level 1 Diagnoses Current use of anticoagulant therapy Z79.01 Results AMB INR Fingerstick AMB INR Fingerstick 2.7 Last Edit by Rakel Ngo RN on 07/15/23 13:15 MANUAL ENTRY Assessment & Plan Assessment & Plan (1) Current use of anticoagulant therapy: Code(s): Z79.01 - 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
== END 2023-07-15 13:22 | disposition home or self-care (01) ==
LOC: HO.ACS 13:01
PROVIDERS: PCP Internal Medicine; Visit Provider Internal Medicine
DX: Z79.01 Long term (current) use of anticoagulants (principal)

== ENCOUNTER → 2023-07-15 13:01 | Outpatient (BNVA) | payer MEDICARE, MEDICAID, SELFPAY | PROVIDERS: PCP Internal Medicine; Visit Provider Internal Medicine | DX: I82.503 Chronic embolism and thrombosis of unspecified deep veins of lower extremity, bilateral (principal); Z79.01 Long term (current) use of anticoagulants; Z51.81 Encounter for therapeutic drug level monitoring | CPT/HCPCS: 85610; 99211 ==

== ENCOUNTER 2023-07-31 10:10 | Outpatient (AMB) | payer MEDICARE, MEDICAID, SELFPAY ==
--- NOTE | 2023-07-31 10:20 | MHC.OFFVISCO ---
Intake Intake Visit Reasons: Anticoagulation Allergies doxycycline Allergy (Intermediate, Verified 07/31/23 10:11) Nausea and Vomiting Medication List - Last Reconciled 07/31/23 by Fouzia Mcginnis RN amlodipine 5 mg PO DAILY 90 days ascorbic acid (vitamin C) 1 g PO DAILY atorvastatin 40 mg PO DAILY blood pressure monitor (Blood Pressure Kit) As directed blood sugar diagnostic (OneTouch Verio test strips) one time daily blood-glucose meter (zhouwuuch Verio Meter) To check blood glucose once daily budesonide-formoterol 160-4.5 mcg/actuation (Symbicort) 2 puffs PO BID cholecalciferol (vitamin D3) 25 mcg PO DAILY cilostazol 100 mg PO BID cyanocobalamin (vitamin B-12) (Vitamin B-12) 250 mcg PO DAILY ferrous sulfate (FeroSul) 325 mg PO BID fluticasone propionate 50 mcg/actuation 2 sprays intranasal DAILY gabapentin 300 mg PO DAILY 90 days [garlic clove 1 dose PO NEEDED] ipratropium-albuterol 0.5 mg-3 mg(2.5 mg base)/3 mL 3 mL inhalation Q6H lancets (zhouwuuch Delica Plus Lancet) To test bg daily lancets As directed metformin 500 mg PO DAILY metoprolol succinate ER 25 mg PO DAILY naloxone 4 mg/actuation (Narcan) 4 mg intranasal Q2M 1 day oxycodone-acetaminophen 5-325 mg 1 tab PO Q8H PRN 30 days Ventolin HFA 90 mcg/actuation (albuterol sulfate) 2 puffs inhalation Q4-6H PRN NS walker ([facility] [place] [place]) As directed, ambulate at all times with walker warfarin 5 mg See Protocol PO DAILY warfarin 2.5 mg See Protocol PO DAILY 90 days Nursing Note INR: 2.1 in therapeutic range of 2-3 Medications and supplements reviewed: no changes No changes in health, diet, medications, or supplements, Denies any signs and symptoms of bleeding or bruising or clotting. Bleeding, bruising, clotting discussed Nutritional guidance given to avoid greens today and to have a serving of food from the list that raise the INR Dose: 2.5mg X 2 days and 5 mg X 4 days F/U INR: 3 weeks Patient verbalizes understanding of instructions given Anti-Coag Initial Assessment Social Hx Patient Tobacco Use Status: Never used Tobacco alcohol intake: former Alcohol intake frequency: does not drink Coding Level of Care Code Est Patient Level 1 Diagnoses Current use of anticoagulant therapy Z79.01 Results AMB INR Fingerstick AMB INR Fingerstick 2.1 Last Edit by Fouzia Mcginnis RN on 07/31/23 10:18 interface delay Assessment & Plan Assessment & Plan (1) Current use of anticoagulant therapy: Code(s): Z79.01 - long term 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
[2023-07-31 10:24] LABS: Prothrombin Time Whole Bld POC 25.4 sec (11.1-13.5); ~PT, ~INR - Anti Coag Clinic 2.1 (0.9-1.1)
== END 2023-07-31 10:23 | disposition home or self-care (01) ==
LOC: HO.ACS 10:10
PROVIDERS: PCP Internal Medicine; Visit Provider Internal Medicine
DX: Z79.01 Long term (current) use of anticoagulants (principal)

== ENCOUNTER → 2023-07-31 10:10 | Outpatient (BNVA) | payer MEDICARE, MEDICAID, SELFPAY | PROVIDERS: PCP Internal Medicine; Visit Provider Internal Medicine | DX: Z51.81 Encounter for therapeutic drug level monitoring (principal); F11.20 Opioid dependence, uncomplicated; I73.9 Peripheral vascular disease, unspecified; E11.21 Type 2 diabetes mellitus with diabetic nephropathy; E11.42 Type 2 diabetes mellitus with diabetic polyneuropathy; M96.1 Postlaminectomy syndrome, not elsewhere classified; G89.4 Chronic pain syndrome; I82.503 Chronic embolism and thrombosis of unspecified deep veins of lower extremity, bilateral; Z79.01 Long term (current) use of anticoagulants | CPT/HCPCS: 85610; 99211; 99212 ==

== ENCOUNTER 2023-07-31 10:27 | Outpatient (AMB) | payer MEDICARE, MEDICAID, SELFPAY ==
[2023-07-31 10:56] VITALS: BP 147/72; PULSE 61; RESP 14; O2SAT 97; BMI 24.1
--- NOTE | 2023-07-31 10:56 | MHC.OFFVIS ---
Vital Signs 07/31/23 10:56 Height 5 ft 10 in Weight 168 lb 4 oz BMI 24.1 BP 147/72 H Blood Pressure Location Lt brachial Position Sitting Respiration 14 Pulse 61 Pulse Source Pulse Oximeter Pulse Oximetry (%) 97 Oxygen Delivery Method Room Air Intake Visit Reasons: PILL COUNT Allergies doxycycline Allergy (Intermediate, Verified 07/31/23 10:11) Nausea and Vomiting HPI Comments Details: Bao is a very pleasant 82 year-old male patient who presents to the office today, accompanied by his son, for follow up chronic pain and chronic opioid therapy management. Patient is prescribed oxyocodone-acetaminophen 5-325mg take 1 tablet three times a day. Patient arrived today with the expectation of having 60 pills, he presented 68 pills which were counted in the presence of two staff members and returned to the patient in the original prescription bottle. This demonstrates responsible attitude toward patient's opioid medications. Pain today is reported today as 8/10 and last dose of pain medication was taken at 07:00 this morning. Patient denies side effects including somnolence, weakness, dizziness, nausea or vomiting. Denies any recent issues with constipation and reports he has been having routine bowel movements without difficulty. Uses prune juice as needed. Previously: He was under care of Dr. Dunn.? Attempts to convert him to buprenorphine in the form of Belbuca or buprenorphine patch failed. He suffers from postlaminectomy syndrome, he suffers from vascular insufficiency of bilateral lower extremities.? He has negative about neuromodulation. 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, without long-term current use of insulin Effusion of right knee joint Contusion of right knee Hemarthrosis involving knee joint Left shoulder pain Appetite impaired Hearing difficulty Weight loss Cough Non-rheumatic aortic stenosis Chronic pain syndrome Postlaminectomy syndrome Diabetic polyneuropathy Gastric carcinoma Peripheral vascular disease Pneumonia Hyperlipidemia LDL goal <70 COPD (chronic obstructive pulmonary disease) Type 2 diabetes mellitus with hyperglycemia Vitamin B12 deficiency Bronchiectasis Moderate aortic stenosis Compression fracture of L1 lumbar vertebra Recurrent deep vein thrombosis (DVT) Peripheral vascular disease History of gastric cancer BPH (benign prostatic hyperplasia) COPD (chronic obstructive pulmonary disease) Joint pain Surgical History History of colonoscopy Amputation of toe of left foot History of gastrectomy Family History Father Diabetes Cancer Mother Diabetes Brother Lung cancer Social History Household Members: None Household Members Other:: lives alone son checks by daily Housing: Apartment Are you a primary critical care nurse practitioner to a significant other at home: No Do you presently have visiting nurse or other home services: No Alcohol intake: former Year quit: 1969 Patient Tobacco Use Status: Never used Tobacco e-Cigarette/Vaping Use: Never Used Second Hand Smoke Exposure: No service: No Current occupational status: retired Cognitive needs: Yes (walker/power chair) Hearing needs: No Vision needs: Yes (reading) Review of Systems Const All systems reviewed & are unremarkable except as noted in HPI and below Physical Exam Vital Signs: Last Vital Signs Pulse 61 07/31/23 10:56 Resp 14 07/31/23 10:56 BP 147/72 H 07/31/23 10:56 Pulse Ox 97 07/31/23 10:56 Oxygen Delivery Method Room Air 07/31/23 10:56 BMI result Body Mass Index 24.1 General: awake, alert, oriented. Answers questions appropriately. Fully engaged in examination. Skin: warm, dry, intact HEENT: Normocephalic. Hearing intact. Cardiac: External chest normal in appearance. Respiratory: No cough, audible wheezing or stridor. Abdomen: without gross distension. MS: No obvious swelling or deformities. Able to transition from sit to stand unassisted. Ambulates with bilaterally normal heel strike and toe off Neurological: Oriented to person, place, time and situation. Thought process intact. Utilizes a walking stick. Psychiatric: Appropriate mood and affect. Good judgment and insight. Results AMB INR Fingerstick AMB INR Fingerstick 2.1 Last Edit by Fouzia Mcginnis RN on 07/31/23 10:18 interface delay Results Reviewed Results Reviewed: Ordering Physician: Ron Pritchard MD Date of Service: 06/10/21 Procedure(s): XR knee RT 3V Accession Number(s): [id number] cc: Ron Pritchard MD~ EXAMINATION: XR KNEE, RIGHT XR FOOT, RIGHT CLINICAL INFORMATION: Trauma.? COMPARISON: None? TECHNIQUE: 4 views of the right knee. 3 views of the right foot.? FINDINGS: Right knee: No fracture or subluxation. Moderate medial compartment joint space narrowing. Moderate tricompartmental marginal osteophytes noted. Moderate joint effusion. Anterior soft tissue swelling overlies the quadriceps region. Enthesophyte formation of the patella. Diffuse vascular calcification. Right foot: No fracture or dislocation. Alignment is maintained. Moderate heel spurs. Diffuse vascular calcifications.? XR/XR knee RT 3V IMPRESSION: No acute osseous abnormality of the right knee or foot. ? Moderate degenerative changes of the right knee with joint effusion present. ? Heel spurs.? Assessment & Plan Assessment & Plan (1) Peripheral vascular disease: Comment: Left lower extremity vascular occluded on Left dorsalis pedis significant disease January 2021 Code(s): I73.9 - Peripheral vascular disease, unspecified Category: Medical (2) Controlled type 2 diabetes mellitus with diabetic nephropathy, without long-term current use of insulin: Code(s): E11.21 - Type 2 diabetes mellitus with diabetic nephropathy Category: Medical (3) Diabetic polyneuropathy: Code(s): E11.42 - Type 2 diabetes mellitus with diabetic polyneuropathy Category: Medical (4) Postlaminectomy syndrome: Code(s): M96.1 - Postlaminectomy syndrome, not elsewhere classified Category: Medical (5) Chronic pain syndrome: Code(s): G89.4 - Chronic pain syndrome Category: Medical Plan Patient is suffering from significant peripheral lower extremity arterial disease and post laminectomy syndrome. Continues to decline neuromodulation Masspat was reviewed and without concerns. No obvious signs of diversion, abuse or misuse of the opioid medications. Will send in prescription for oxycodone/acetaminophen 5-325 mg BID with an advanced date of 08/22/23. Patient to follow-up in the office in 1 month, sooner if needed. All questions and concerns have been answered and patient agrees with the plan. Medications: Refilled oxycodone-acetaminophen 5-325 mg Partial Fill only upon patient request. 1 tab PO Q8H 30 days PRN 90 tabs 0RF pain M47.816 - Spondylosis without myelopathy or radiculopathy, lumbar region Coding Level of Care Code Est Pt Level 4 (70372) Diagnoses Peripheral vascular disease I73.9 Controlled type 2 diabetes mellitus with diabetic nephropathy, without long-term current use of insulin E11.21 Diabetic polyneuropathy E11.42 Postlaminectomy syndrome M96.1 Chronic pain syndrome G89.4
== END 2023-07-31 11:03 | disposition home or self-care (01) ==
PROVIDERS: PCP Internal Medicine; Visit Provider Registered Nurse Emergency
DX: G89.4 Chronic pain syndrome (principal); I73.9 Peripheral vascular disease, unspecified; E11.21 Type 2 diabetes mellitus with diabetic nephropathy; M96.1 Postlaminectomy syndrome, not elsewhere classified; E11.42 Type 2 diabetes mellitus with diabetic polyneuropathy
CPT/HCPCS: 99214

== ENCOUNTER 2023-08-21 12:59 | Outpatient (AMB) | payer MEDICARE, MEDICAID, SELFPAY ==
--- NOTE | 2023-08-21 13:12 | MHC.OFFVISCO ---
Intake Intake Visit Reasons: Anticoagulation Allergies doxycycline Allergy (Intermediate, Verified 08/21/23 13:04) Nausea and Vomiting Medication List - Last Reconciled 08/21/23 by Rakel Ngo RN amlodipine 5 mg PO DAILY 90 days amlodipine 10 mg PO DAILY ascorbic acid (vitamin C) 1 g PO DAILY atorvastatin 40 mg PO DAILY blood pressure monitor (Blood Pressure Kit) As directed blood sugar diagnostic (Adianauch Verio test strips) one time daily blood-glucose meter (Adianauch Verio Meter) To check blood glucose once daily budesonide-formoterol 160-4.5 mcg/actuation (Symbicort) 2 puffs PO BID cholecalciferol (vitamin D3) 25 mcg PO DAILY cilostazol 100 mg PO BID cyanocobalamin (vitamin B-12) (Vitamin B-12) 250 mcg PO DAILY ferrous sulfate (FeroSul) 325 mg PO BID fluticasone propionate 50 mcg/actuation 2 sprays intranasal DAILY gabapentin 300 mg PO DAILY 90 days [garlic clove 1 dose PO NEEDED] ipratropium-albuterol 0.5 mg-3 mg(2.5 mg base)/3 mL 3 mL inhalation Q6H lancets (Adianauch Delica Plus Lancet) To test bg daily lancets As directed metformin 500 mg PO DAILY metoprolol succinate ER 25 mg PO DAILY naloxone 4 mg/actuation (Narcan) 4 mg intranasal Q2M 1 day oxycodone-acetaminophen 5-325 mg 1 tab PO Q8H PRN 30 days Ventolin HFA 90 mcg/actuation (albuterol sulfate) 2 puffs inhalation Q4-6H PRN NS walker ([facility] [place]) As directed, ambulate at all times with walker warfarin 5 mg See Protocol PO DAILY warfarin 2.5 mg See Protocol PO DAILY 90 days Nursing Note INR: 2.3 in therapeutic range Medications and supplements reviewed No changes in health, diet, medications, or supplements, Denies any signs and symptoms of bleeding or bruising or clotting. Bleeding, bruising, clotting discussed Nutritional guidance given - eat a mix of fruits and vegetables,, keep up weekly greens Dose: 5mg x 5days/ 2.5mg x 2 days F/U INR: 4 weeks Patient verbalizes understanding of instructions given Anti-Coag Initial Assessment Social Hx Patient Tobacco Use Status: Never used Tobacco alcohol intake: former Alcohol intake frequency: does not drink Coding Level of Care Code Est Patient Level 1 Diagnoses Current use of anticoagulant therapy Z79.01 Results AMB INR Fingerstick AMB INR Fingerstick 2.3 Last Edit by Rakel Ngo RN on 08/21/23 13:14 manual entry no interfacing ongoing expanse failure Assessment & Plan Assessment & Plan (1) Current use of anticoagulant therapy: Code(s): Z79.01 - 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
[2023-08-22 09:24] LABS: Prothrombin Time Whole Bld POC 27.8 sec (11.1-13.5); ~PT, ~INR - Anti Coag Clinic 2.3 (0.9-1.1)
== END 2023-08-21 13:20 | disposition home or self-care (01) ==
LOC: HO.ACS 12:59
PROVIDERS: PCP Internal Medicine; Visit Provider Internal Medicine
DX: Z79.01 Long term (current) use of anticoagulants (principal)

== ENCOUNTER → 2023-08-21 12:59 | Outpatient (BNVA) | payer MEDICARE, MEDICAID, SELFPAY | PROVIDERS: PCP Internal Medicine; Visit Provider Internal Medicine | DX: I82.503 Chronic embolism and thrombosis of unspecified deep veins of lower extremity, bilateral (principal); Z79.01 Long term (current) use of anticoagulants; Z51.81 Encounter for therapeutic drug level monitoring | CPT/HCPCS: 85610; 99211 ==

== ENCOUNTER 2023-08-28 13:00 | Outpatient (AMB) | payer MEDICARE, MEDICAID, SELFPAY ==
[2023-08-28 13:05] VITALS: BP 112/64; BMI 24.4
--- NOTE | 2023-08-28 13:05 | MHC.OFFVIS ---
Vital Signs 08/28/23 13:05 Height 5 ft 10 in Weight 170 lb BMI 24.4 BP 112/64 Blood Pressure Location Lt brachial Position Sitting Intake Visit Reasons: PILL COUNT Allergies doxycycline Allergy (Intermediate, Verified 08/28/23 13:09) Nausea and Vomiting HPI Comments Details: Bao is a very pleasant 82 year-old male patient who presents to the office today, accompanied by his son, for follow up chronic pain and chronic opioid therapy management. Patient is prescribed oxyocodone-acetaminophen 5-325mg take 1 tablet three times a day. Patient arrived today with the expectation of having 75 pills, he presented 80 pills which were counted in the presence of two staff members and returned to the patient in the original prescription bottle. This demonstrates responsible attitude toward patient's opioid medications. Pain today is reported today as 9/10 and last dose of pain medication was taken at 08:00 this morning. Patient denies side effects including somnolence, weakness, dizziness, nausea or vomiting. Denies any recent issues with constipation and reports he has been having routine bowel movements without difficulty. Uses prune juice as needed. Previously: He was under care of Dr. Dunn.? Attempts to convert him to buprenorphine in the form of Belbuca or buprenorphine patch failed. He suffers from postlaminectomy syndrome, he suffers from vascular insufficiency of bilateral lower extremities.? He has negative about neuromodulation. 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, without long-term current use of insulin Effusion of right knee joint Contusion of right knee Hemarthrosis involving knee joint Left shoulder pain Appetite impaired Hearing difficulty Weight loss Cough Non-rheumatic aortic stenosis Chronic pain syndrome Postlaminectomy syndrome Diabetic polyneuropathy Gastric carcinoma Peripheral vascular disease Pneumonia Hyperlipidemia LDL goal <70 COPD (chronic obstructive pulmonary disease) Type 2 diabetes mellitus with hyperglycemia Vitamin B12 deficiency Bronchiectasis Moderate aortic stenosis Compression fracture of L1 lumbar vertebra Recurrent deep vein thrombosis (DVT) Peripheral vascular disease History of gastric cancer BPH (benign prostatic hyperplasia) COPD (chronic obstructive pulmonary disease) Joint pain Surgical History History of colonoscopy Amputation of toe of left foot History of gastrectomy Family History Father Diabetes Cancer Mother Diabetes Brother Lung cancer Social History Household Members: None Household Members Other:: lives alone son checks by daily Housing: Apartment Are you a primary care professionals to a significant other at home: No Do you presently have visiting nurse or other home services: No Alcohol intake: former Year quit: 1970 Patient Tobacco Use Status: Never used Tobacco e-Cigarette/Vaping Use: Never Used Second Hand Smoke Exposure: No service: No Current occupational status: retired Cognitive needs: Yes (walker/power chair) Hearing needs: No Vision needs: Yes (reading) Review of Systems Const All systems reviewed & are unremarkable except as noted in HPI and below Physical Exam Vital Signs: Last Vital Signs BP 112/64 08/28/23 13:05 BMI result Body Mass Index 24.4 General: awake, alert, oriented. Answers questions appropriately. Fully engaged in examination. Skin: warm, dry, intact HEENT: Normocephalic. Hearing intact. Cardiac: External chest normal in appearance. Respiratory: No cough, audible wheezing or stridor. Abdomen: without gross distension. Soft, nontender. No guarding MS: No obvious swelling or deformities. Able to transition from sit to stand unassisted. Ambulates with bilaterally normal heel strike and toe off Neurological: Oriented to person, place, time and situation. Thought process intact. Utilizes a walking stick. Psychiatric: Appropriate mood and affect. Good judgment and insight. Results Reviewed Results Reviewed: Ordering Physician: Ron Pritchard MD Date of Service: 06/10/21 Procedure(s): XR knee RT 3V Accession Number(s): [id number] cc: Ron Pritchard MD~ EXAMINATION: XR KNEE, RIGHT XR FOOT, RIGHT CLINICAL INFORMATION: Trauma.? COMPARISON: None? TECHNIQUE: 4 views of the right knee. 3 views of the right foot.? FINDINGS: Right knee: No fracture or subluxation. Moderate medial compartment joint space narrowing. Moderate tricompartmental marginal osteophytes noted. Moderate joint effusion. Anterior soft tissue swelling overlies the quadriceps region. Enthesophyte formation of the patella. Diffuse vascular calcification. Right foot: No fracture or dislocation. Alignment is maintained. Moderate heel spurs. Diffuse vascular calcifications.? XR/XR knee RT 3V IMPRESSION: No acute osseous abnormality of the right knee or foot. ? Moderate degenerative changes of the right knee with joint effusion present. ? Heel spurs.? Assessment & Plan Assessment & Plan (1) Peripheral vascular disease: Comment: Left lower extremity vascular occluded on Left dorsalis pedis significant disease January 2021 Code(s): I73.9 - Peripheral vascular disease, unspecified Category: Medical (2) Controlled type 2 diabetes mellitus with diabetic nephropathy, without long-term current use of insulin: Code(s): E11.21 - Type 2 diabetes mellitus with diabetic nephropathy Category: Medical (3) Diabetic polyneuropathy: Code(s): E11.42 - Type 2 diabetes mellitus with diabetic polyneuropathy Category: Medical (4) Postlaminectomy syndrome: Code(s): M96.1 - Postlaminectomy syndrome, not elsewhere classified Category: Medical (5) Chronic pain syndrome: Code(s): G89.4 - Chronic pain syndrome Category: Medical Plan Patient is suffering from significant peripheral lower extremity arterial disease and post laminectomy syndrome. Masspat was reviewed and without concerns. No obvious signs of diversion, abuse or misuse of the opioid medications. Will send in prescription for oxycodone/acetaminophen 5-325 mg BID with an advanced date of 09/23/23. Patient to follow-up in the office in 1 month, sooner if needed. All questions and concerns have been answered and patient agrees with the plan. Medications: Refilled oxycodone-acetaminophen 5-325 mg Partial Fill only upon patient request. 1 tab PO Q8H 30 days PRN 90 tabs 0RF pain M47.816 - Spondylosis without myelopathy or radiculopathy, lumbar region Coding Level of Care Code Est Pt Level 4 (40830) Diagnoses Peripheral vascular disease I73.9 Controlled type 2 diabetes mellitus with diabetic nephropathy, without long-term current use of insulin E11.21 Diabetic polyneuropathy E11.42 Postlaminectomy syndrome M96.1 Chronic pain syndrome G89.4
== END 2023-08-28 13:45 | disposition home or self-care (01) ==
PROVIDERS: PCP Internal Medicine; Visit Provider Registered Nurse Emergency
DX: G89.4 Chronic pain syndrome (principal); E11.21 Type 2 diabetes mellitus with diabetic nephropathy; E11.42 Type 2 diabetes mellitus with diabetic polyneuropathy; M96.1 Postlaminectomy syndrome, not elsewhere classified; I73.9 Peripheral vascular disease, unspecified
CPT/HCPCS: 99214

== ENCOUNTER → 2023-08-28 13:00 | Outpatient (BNVA) | payer MEDICARE, MEDICAID, SELFPAY | PROVIDERS: PCP Internal Medicine; Visit Provider Registered Nurse Emergency | DX: M96.1 Postlaminectomy syndrome, not elsewhere classified (principal); G89.4 Chronic pain syndrome; I73.9 Peripheral vascular disease, unspecified; E11.42 Type 2 diabetes mellitus with diabetic polyneuropathy; E11.21 Type 2 diabetes mellitus with diabetic nephropathy; Z79.891 Long term (current) use of opiate analgesic | CPT/HCPCS: 99212 ==

== ENCOUNTER 2023-09-17 13:18 | Outpatient (AMB) | payer MEDICARE, MEDICAID, SELFPAY ==
[2023-09-17 13:28] LABS: Prothrombin Time Whole Bld POC 30.5 sec (11.1-13.5); ~PT, ~INR - Anti Coag Clinic 2.5 (0.9-1.1)
--- NOTE | 2023-09-17 13:31 | MHC.OFFVISCO ---
Intake Intake Visit Reasons: Anticoagulation Allergies doxycycline Allergy (Intermediate, Verified 09/17/23 13:24) Nausea and Vomiting Medication List - Last Reconciled 09/17/23 by Rakel Ngo RN amlodipine 5 mg PO DAILY 90 days amlodipine 10 mg PO DAILY ascorbic acid (vitamin C) 1 g PO DAILY atorvastatin 40 mg PO DAILY blood pressure monitor (Blood Pressure Kit) As directed blood sugar diagnostic ([employer] Verio test strips) one time daily blood-glucose meter ([employer] Verio Meter) To check blood glucose once daily budesonide-formoterol 160-4.5 mcg/actuation (Symbicort) 2 puffs PO BID cholecalciferol (vitamin D3) 25 mcg PO DAILY cilostazol 100 mg PO BID cyanocobalamin (vitamin B-12) (Vitamin B-12) 250 mcg PO DAILY ferrous sulfate (FeroSul) 325 mg PO BID fluticasone propionate 50 mcg/actuation 2 sprays intranasal DAILY gabapentin 300 mg PO DAILY 90 days [garlic clove 1 dose PO NEEDED] ipratropium-albuterol 0.5 mg-3 mg(2.5 mg base)/3 mL 3 mL inhalation Q6H lancets ([employer] Delica Plus Lancet) To test bg daily lancets As directed metformin 500 mg PO DAILY metoprolol succinate ER 25 mg PO DAILY naloxone 4 mg/actuation (Narcan) 4 mg intranasal Q2M 1 day oxycodone-acetaminophen 5-325 mg 1 tab PO Q8H PRN 30 days Ventolin HFA 90 mcg/actuation (albuterol sulfate) 2 puffs inhalation Q4-6H PRN NS walker (Ultra-Light Rollator [facility] [place]) As directed, ambulate at all times with walker warfarin 5 mg See Protocol PO DAILY warfarin 2.5 mg See Protocol PO DAILY 90 days Nursing Note INR: 2.5 in therapeutic range Medications and supplements reviewed No changes in health, diet, medications, or supplements, Denies any signs and symptoms of bleeding or bruising or clotting. 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
== END 2023-09-17 13:34 | disposition home or self-care (01) ==
LOC: HO.ACS 13:18
PROVIDERS: PCP Internal Medicine; Visit Provider Internal Medicine
DX: Z79.01 Long term (current) use of anticoagulants (principal)

== ENCOUNTER → 2023-09-17 13:18 | Outpatient (BNVA) | payer MEDICARE, MEDICAID, SELFPAY | PROVIDERS: PCP Internal Medicine; Visit Provider Internal Medicine | DX: I82.503 Chronic embolism and thrombosis of unspecified deep veins of lower extremity, bilateral (principal); Z79.01 Long term (current) use of anticoagulants; Z51.81 Encounter for therapeutic drug level monitoring | CPT/HCPCS: 85610; 99211 ==

== ENCOUNTER 2023-09-23 13:10 | Outpatient (AMB) | payer MEDICARE, MEDICAID, SELFPAY ==
[2023-09-23 13:27] VITALS: BP 110/60; PULSE 57; O2SAT 97; BMI 24.4
--- NOTE | 2023-09-23 13:27 | A.OFFVIS_ITS ---
Vital Signs 09/23/23 13:27 Height 5 ft 10 in Weight 169 lb 12.095 oz BMI 24.4 BP 110/60 Blood Pressure Location Lt brachial Position Sitting Pulse 57 Pulse Source Pulse Oximeter Pulse Oximetry (%) 97 Oxygen Delivery Method Room Air Intake Visit Reasons: COPD follow-up Intake Note: pt is here for follow up and states he coughs and wheezes at times. 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 Allergies doxycycline Allergy (Intermediate, Verified 09/23/23 13:37) Nausea and Vomiting Medication List - Last Reconciled 09/23/23 by Main Luis MD amlodipine 5 mg PO DAILY 90 days amlodipine 10 mg PO DAILY ascorbic acid (vitamin C) 1 g PO DAILY atorvastatin 40 mg PO DAILY blood pressure monitor (Blood Pressure Kit) As directed blood sugar diagnostic ([employer] Verio test strips) one time daily blood-glucose meter ([employer] Verio Meter) To check blood glucose once daily budesonide-formoterol 160-4.5 mcg/actuation (Symbicort) 2 puffs PO BID cholecalciferol (vitamin D3) 25 mcg PO DAILY cilostazol 100 mg PO BID cyanocobalamin (vitamin B-12) (Vitamin B-12) 250 mcg PO DAILY ferrous sulfate (FeroSul) 325 mg PO BID fluticasone propionate 50 mcg/actuation 2 sprays intranasal DAILY gabapentin 300 mg PO DAILY 90 days [garlic clove 1 dose PO NEEDED] ipratropium-albuterol 0.5 mg-3 mg(2.5 mg base)/3 mL 3 mL inhalation Q6H lancets ([employer] Delica Plus Lancet) To test bg daily lancets As directed metformin 500 mg PO DAILY metoprolol succinate ER 25 mg PO DAILY naloxone 4 mg/actuation (Narcan) 4 mg intranasal Q2M 1 day oxycodone-acetaminophen 5-325 mg 1 tab PO Q8H PRN 30 days Ventolin HFA 90 mcg/actuation (albuterol sulfate) 2 puffs inhalation Q4-6H PRN NS walker (Ultra-Light Rollator misc) As directed, ambulate at all times with walker warfarin 5 mg See Protocol PO DAILY warfarin 2.5 mg See Protocol PO DAILY 90 days Do you need a note to return to daycare/school/sports/work: No HPI HPI COPD follow-up: Details: 83 YEARS OLD PRYDEINIG-SPEAKING VERY PLEASANT GENTLEMAN IS BROUGHT TO THE OFFICE BY HIS SON. HE HAS BEEN GOOD AND STABLE IN THE LAST 6 MONTHS. MAIN COMPLAINT IS INTERMITTENT COUGH AND SOME TIGHT FEELING IN THE CHEST ESPECIALLY IN HOT AND HUMID WEATHER. HE IS USING HIS INHALERS REGULARLY. USES THE DUONEB UPDRAFT 3 TIMES A DAY. HE DOES HAVE VENTOLIN INHALER AND USES ONCE IN A WHILE. HAS REMAINED FREE OF ANY. 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, without long-term current use of insulin Effusion of right knee joint Contusion of right knee Hemarthrosis involving knee joint Left shoulder pain Appetite impaired Hearing difficulty Weight loss Cough Non-rheumatic aortic stenosis Chronic pain syndrome Postlaminectomy syndrome Diabetic polyneuropathy Gastric carcinoma Peripheral vascular disease Pneumonia Hyperlipidemia LDL goal <70 COPD (chronic obstructive pulmonary disease) Type 2 diabetes mellitus with hyperglycemia Vitamin B12 deficiency Bronchiectasis Moderate aortic stenosis Compression fracture of L1 lumbar vertebra Recurrent deep vein thrombosis (DVT) Peripheral vascular disease History of gastric cancer BPH (benign prostatic hyperplasia) COPD (chronic obstructive pulmonary disease) Joint pain Surgical History History of colonoscopy Amputation of toe of left foot History of gastrectomy Family History Father Diabetes Cancer Mother Diabetes Brother Lung cancer Social History Household Members: None Household Members Other:: lives alone son checks by daily Housing: Apartment Are you a primary home care and home health aides teacher to a significant other at home: No Do you presently have visiting nurse or other home services: No Alcohol intake: former Year quit: 1970 Patient Tobacco Use Status: Never used Tobacco e-Cigarette/Vaping Use: Never Used Second Hand Smoke Exposure: No service: No Current occupational status: retired Cognitive needs: Yes (walker/power chair) Hearing needs: No Vision needs: Yes (reading) Review of Systems Const All systems reviewed & are unremarkable except as noted in HPI and below Denies poor appetite and Denies weakness Eyes Denies no additional complaints ENT Reports Normal hearing present, Denies dizziness, Reports nasal congestion (MILD ), Denies tinnitus and Denies sore throat Card Denies chest pain, Denies syncope, Denies rapid heart rate and Denies dyspnea Resp Denies cough and Denies dyspnea GI Denies change in stool character, Reports constipation, Denies diarrhea, Denies nausea and Denies vomiting Denies dysuria and Denies urinary frequency Musc Reports back pain and Reports stiffness Skin/Breast Reports system reviewed and no additional complaints, except as documented Neuro Reports Normal hearing present, Denies confusion, Denies dizziness, Denies syncope and Denies weakness Psych Denies confusion Endo Reports other (Being treated for diabetes mellitus) Physical Exam Vital Signs: Last Vital Signs Pulse 57 09/23/23 13:27 BP 110/60 09/23/23 13:27 Pulse Ox 97 09/23/23 13:27 Oxygen Delivery Method Room Air 09/23/23 13:27 BMI result Body Mass Index 24.4 Const General: No confusion Orientation/consciousness: No confusion HEENT Head: Yes normal to inspection General nose exam: No nasal polyps present and No nasal discharge present Face and sinus: Yes sinuses nontender Mouth: oropharynx normal Throat: Yes posterior oropharynx normal Eyes General: appearance normal, both eyes and all related structures Neck Neck: Yes normal visual inspection, Yes no lymphadenopathy, Yes trachea midline and Yes no JVD Thyroid: Thyroid normal Chest Chest palpation & inspection: normal inspection of the chest, normal palpation of entire chest wall and no tenderness Resp Other: Percussion note resonant on both sides. Breath sounds are slightly diminished and prolonged expiratory phase on both sides. No wheezes rhonchi or crepitations are heard today . Cardio Palpation: normal PMI Rate: regular rate Rhythm: regular rhythm Heart sounds: no gallops and no murmurs GI Palpation (GI): Soft to palpation, nontender, No hepatosplenomegaly present and no masses Auscultation: normal bowel sounds Back/Spine/Pelvis Thoracic/Lumbar Spine: thoracic and lumbar spine normal to inspection, thoraco- lumbar ROM limited and thoraco-lumbar spasm Skin General skin exam: no rashes or lesions noted Neuro General: No confusion Cranial nerves: Yes Normal hearing present Extrem General: Yes normal to inspection, Yes no clubbing, cyanosis or edema and Yes no calf tenderness Psych Mental Status: mental status grossly normal Speech and movement: Normal speech and movement present Assessment & Plan Assessment & Plan (1) COPD (chronic obstructive pulmonary disease): Comment: This patient is well known to have chronic obstructive pulmonary disease, moderately severe. He is staying stable with the current medical regimen , except for intermittent increase in cough and mucus production. Code(s): J44.9 - Chronic obstructive pulmonary disease, unspecified Category: Medical Qualifiers: COPD type: emphysema Emphysema type: unspecified Qualified Code(s): J43.9 - Emphysema, unspecified Plan: CONTINUE SYMBICORT 160-4.52 PUFFS B.I.D. DUONEB UPDRAFTS T.I.D.. VENTOLIN HFA 2 PUFFS Q 6 HOURS P.R.N. WHEN OUTDOORS Coding Level of Care Code Est Pt Level 3 (96504) Diagnoses Pulmonary emphysema, unspecified emphysema type J43.9 COPD type: emphysema Emphysema type: unspecified
== END 2023-09-23 13:37 | disposition home or self-care (01) ==
PROVIDERS: PCP Internal Medicine; Visit Provider Internal Medicine
DX: J43.9 Emphysema, unspecified (principal)
CPT/HCPCS: 99213

== ENCOUNTER → 2023-09-23 13:10 | Outpatient (BNVA) | payer MEDICARE, MEDICAID, SELFPAY | PROVIDERS: PCP Internal Medicine; Visit Provider Internal Medicine | DX: J43.9 Emphysema, unspecified (principal) | CPT/HCPCS: 99212 ==

== ENCOUNTER 2023-09-25 12:51 | Outpatient (AMB) | payer MEDICARE, MEDICAID, SELFPAY ==
--- NOTE | 2023-09-25 12:54 | MHC.OFFVIS ---
Vital Signs 09/25/23 12:56 Height 5 ft 10 in Weight 171 lb BMI 24.5 BP 112/68 Blood Pressure Location Lt brachial Position Sitting Pulse 64 Pulse Source Pulse Oximeter Pulse Oximetry (%) 97 Oxygen Delivery Method Room Air Intake Visit Reasons: Pill Count Allergies doxycycline Allergy (Intermediate, Verified 09/25/23 12:57) Nausea and Vomiting Medication List - Last Reconciled 09/25/23 by Denae Ricardo amlodipine 5 mg PO DAILY 90 days amlodipine 10 mg PO DAILY ascorbic acid (vitamin C) 1 g PO DAILY atorvastatin 40 mg PO DAILY blood pressure monitor (Blood Pressure Kit) As directed blood sugar diagnostic ([employer] Verio test strips) one time daily blood-glucose meter ([employer] Verio Meter) To check blood glucose once daily budesonide-formoterol 160-4.5 mcg/actuation (Symbicort) 2 puffs PO BID cholecalciferol (vitamin D3) 25 mcg PO DAILY cilostazol 100 mg PO BID cyanocobalamin (vitamin B-12) (Vitamin B-12) 250 mcg PO DAILY ferrous sulfate (FeroSul) 325 mg PO BID fluticasone propionate 50 mcg/actuation 2 sprays intranasal DAILY gabapentin 300 mg PO DAILY 90 days [garlic clove 1 dose PO NEEDED] ipratropium-albuterol 0.5 mg-3 mg(2.5 mg base)/3 mL 3 mL inhalation Q6H lancets ([employer] Delica Plus Lancet) To test bg daily lancets As directed metformin 500 mg PO DAILY metoprolol succinate ER 25 mg PO DAILY naloxone 4 mg/actuation (Narcan) 4 mg intranasal Q2M 1 day oxycodone-acetaminophen 5-325 mg 1 tab PO Q8H PRN 30 days Ventolin HFA 90 mcg/actuation (albuterol sulfate) 2 puffs inhalation Q4-6H PRN NS walker (Ultra-Light Rollator misc) As directed, ambulate at all times with walker warfarin 5 mg See Protocol PO DAILY warfarin 2.5 mg See Protocol PO DAILY 90 days HPI Comments Details: Bao is a very pleasant 82 year-old male patient who presents to the office today, accompanied by his son, for follow up chronic pain and chronic opioid therapy management. Patient is prescribed oxyocodone-acetaminophen 5-325mg take 1 tablet three times a day. Patient arrived today with the expectation of having 81 pills, he presented 86 pills which were counted in the presence of two staff members and returned to the patient in the original prescription bottle. This demonstrates responsible attitude toward patient's opioid medications. Pain today is reported today as 8/10 and last dose of pain medication was taken at 06:00 this morning. Patient denies side effects including constipation, somnolence, weakness, dizziness, nausea or vomiting. Previously: He was under care of Dr. Dunn.? Attempts to convert him to buprenorphine in the form of Bel[place] or buprenorphine patch failed. He suffers from postlaminectomy syndrome, he suffers from vascular insufficiency of bilateral lower extremities.? He has negative about neuromodulation. 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, without long-term current use of insulin Effusion of right knee joint Contusion of right knee Hemarthrosis involving knee joint Left shoulder pain Appetite impaired Hearing difficulty Weight loss Cough Non-rheumatic aortic stenosis Chronic pain syndrome Postlaminectomy syndrome Diabetic polyneuropathy Gastric carcinoma Peripheral vascular disease Pneumonia Hyperlipidemia LDL goal <70 COPD (chronic obstructive pulmonary disease) Type 2 diabetes mellitus with hyperglycemia Vitamin B12 deficiency Bronchiectasis Moderate aortic stenosis Compression fracture of L1 lumbar vertebra Recurrent deep vein thrombosis (DVT) Peripheral vascular disease History of gastric cancer BPH (benign prostatic hyperplasia) COPD (chronic obstructive pulmonary disease) Joint pain Surgical History History of colonoscopy Amputation of toe of left foot History of gastrectomy Family History Father Diabetes Cancer Mother Diabetes Brother Lung cancer Social History Household Members: None Household Members Other:: lives alone son checks by daily Housing: Apartment Are you a primary physician locums urgent care to a significant other at home: No Do you presently have visiting nurse or other home services: No Alcohol intake: former Year quit: 1969 Patient Tobacco Use Status: Never used Tobacco e-Cigarette/Vaping Use: Never Used Second Hand Smoke Exposure: No service: No Current occupational status: retired Cognitive needs: Yes (walker/power chair) Hearing needs: No Vision needs: Yes (reading) Review of Systems Const All systems reviewed & are unremarkable except as noted in HPI and below Physical Exam Vital Signs: Last Vital Signs Pulse 64 09/25/23 12:56 BP 112/68 09/25/23 12:56 Pulse Ox 97 09/25/23 12:56 Oxygen Delivery Method Room Air 09/25/23 12:56 BMI result Body Mass Index 24.5 General: awake, alert, oriented. Answers questions appropriately. Fully engaged in examination. Skin: warm, dry, intact HEENT: Normocephalic. Hearing intact. Cardiac: External chest normal in appearance. Respiratory: No cough, audible wheezing or stridor. Abdomen: without gross distension. Soft, nontender. No guarding MS: No obvious swelling or deformities. Able to transition from sit to stand unassisted. Ambulates with bilaterally normal heel strike and toe off Neurological: Oriented to person, place, time and situation. Thought process intact. Utilizes a walking stick. Psychiatric: Appropriate mood and affect. Good judgment and insight. Results Reviewed Results Reviewed: Ordering Physician: Ron Pritchard MD Date of Service: 06/10/21 Procedure(s): XR knee RT 3V Accession Number(s): [id number] cc: Ron Pritchard MD~ EXAMINATION: XR KNEE, RIGHT XR FOOT, RIGHT CLINICAL INFORMATION: Trauma.? COMPARISON: None? TECHNIQUE: 4 views of the right knee. 3 views of the right foot.? FINDINGS: Right knee: No fracture or subluxation. Moderate medial compartment joint space narrowing. Moderate tricompartmental marginal osteophytes noted. Moderate joint effusion. Anterior soft tissue swelling overlies the quadriceps region. Enthesophyte formation of the patella. Diffuse vascular calcification. Right foot: No fracture or dislocation. Alignment is maintained. Moderate heel spurs. Diffuse vascular calcifications.? XR/XR knee RT 3V IMPRESSION: No acute osseous abnormality of the right knee or foot. ? Moderate degenerative changes of the right knee with joint effusion present. ? Heel spurs.? Assessment & Plan Assessment & Plan (1) Peripheral vascular disease: Comment: Left lower extremity vascular occluded on Left dorsalis pedis significant disease January 2021 Code(s): I73.9 - Peripheral vascular disease, unspecified Category: Medical (2) Controlled type 2 diabetes mellitus with diabetic nephropathy, without long-term current use of insulin: Code(s): E11.21 - Type 2 diabetes mellitus with diabetic nephropathy Category: Medical (3) Diabetic polyneuropathy: Code(s): E11.42 - Type 2 diabetes mellitus with diabetic polyneuropathy Category: Medical (4) Postlaminectomy syndrome: Code(s): M96.1 - Postlaminectomy syndrome, not elsewhere classified Category: Medical (5) Chronic pain syndrome: Code(s): G89.4 - Chronic pain syndrome Category: Medical Plan Patient is suffering from significant peripheral lower extremity arterial disease and post laminectomy syndrome. Masspat was reviewed and without concerns. No obvious signs of diversion, abuse or misuse of the opioid medications. Will send in prescription for oxycodone/acetaminophen 5-325 mg BID with an advanced date of 10/23/23. Patient to follow-up in the office in 1 month, sooner if needed. All questions and concerns have been answered and patient agrees with the plan. Medications: Refilled oxycodone-acetaminophen 5-325 mg Partial Fill only upon patient request. 1 tab PO Q8H PRN 90 tabs 0RF pain 30 days M47.816 - Spondylosis without myelopathy or radiculopathy, lumbar region Coding Level of Care Code Est Pt Level 4 (20225) Diagnoses Peripheral vascular disease I73.9 Controlled type 2 diabetes mellitus with diabetic nephropathy, without long-term current use of insulin E11.21 Diabetic polyneuropathy E11.42 Postlaminectomy syndrome M96.1 Chronic pain syndrome G89.4
[2023-09-25 12:56] VITALS: BP 112/68; PULSE 64; O2SAT 97; BMI 24.5
== END 2023-09-25 13:14 | disposition home or self-care (01) ==
PROVIDERS: PCP Internal Medicine; Visit Provider Registered Nurse Emergency
DX: G89.4 Chronic pain syndrome (principal); I73.9 Peripheral vascular disease, unspecified; E11.21 Type 2 diabetes mellitus with diabetic nephropathy; E11.42 Type 2 diabetes mellitus with diabetic polyneuropathy; M96.1 Postlaminectomy syndrome, not elsewhere classified
CPT/HCPCS: 99214

== ENCOUNTER → 2023-09-25 12:51 | Outpatient (BNVA) | payer MEDICARE, MEDICAID, SELFPAY | PROVIDERS: PCP Internal Medicine; Visit Provider Registered Nurse Emergency | DX: M47.816 Spondylosis without myelopathy or radiculopathy, lumbar region (principal); M96.1 Postlaminectomy syndrome, not elsewhere classified; G89.4 Chronic pain syndrome; E11.42 Type 2 diabetes mellitus with diabetic polyneuropathy; Z51.81 Encounter for therapeutic drug level monitoring; Z79.891 Long term (current) use of opiate analgesic | CPT/HCPCS: 99212 ==

== ENCOUNTER 2023-10-15 13:02 | Outpatient (AMB) | payer MEDICARE, MEDICAID, SELFPAY ==
[2023-10-15 13:38] LABS: Prothrombin Time Whole Bld POC 33.3 sec (11.1-13.5); ~PT, ~INR - Anti Coag Clinic 2.8 (0.9-1.1)
--- NOTE | 2023-10-15 13:44 | MHC.OFFVISCO ---
Intake Intake Visit Reasons: Anticoagulation Allergies doxycycline Allergy (Intermediate, Verified 10/15/23 13:31) Nausea and Vomiting Medication List - Last Reconciled 10/15/23 by Rakel Ngo RN amlodipine 5 mg PO DAILY 90 days amlodipine 10 mg PO DAILY ascorbic acid (vitamin C) 1 g PO DAILY atorvastatin 40 mg PO DAILY blood pressure monitor (Blood Pressure Kit) As directed blood sugar diagnostic ([employer] Verio test strips) one time daily blood-glucose meter ([employer] Verio Meter) To check blood glucose once daily budesonide-formoterol 160-4.5 mcg/actuation (Symbicort) 2 puffs PO BID cholecalciferol (vitamin D3) 25 mcg PO DAILY cilostazol 100 mg PO BID cyanocobalamin (vitamin B-12) (Vitamin B-12) 250 mcg PO DAILY ferrous sulfate (FeroSul) 325 mg PO BID fluticasone propionate 50 mcg/actuation 2 sprays intranasal DAILY gabapentin 300 mg PO DAILY 90 days [garlic clove 1 dose PO NEEDED] ipratropium-albuterol 0.5 mg-3 mg(2.5 mg base)/3 mL 3 mL inhalation Q6H lancets ([employer] Delica Plus Lancet) To test bg daily lancets As directed metformin 500 mg PO DAILY metoprolol succinate ER 25 mg PO DAILY naloxone 4 mg/actuation (Narcan) 4 mg intranasal Q2M 1 day oxycodone-acetaminophen 5-325 mg 1 tab PO Q8H PRN 30 days Ventolin HFA 90 mcg/actuation (albuterol sulfate) 2 puffs inhalation Q4-6H PRN NS walker (Ultra-Light Rollator mis) As directed, ambulate at all times with walker warfarin 5 mg See Protocol PO DAILY warfarin 2.5 mg See Protocol PO DAILY 90 days Nursing Note INR: 2.8 in therapeutic range Medications and supplements reviewed No changes in health, diet, medications, or supplements, Denies any signs and symptoms of bleeding or bruising or clotting. 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
== END 2023-10-15 13:53 | disposition home or self-care (01) ==
LOC: HO.ACS 13:02
PROVIDERS: PCP Internal Medicine; Visit Provider Internal Medicine
DX: Z79.01 Long term (current) use of anticoagulants (principal)

== ENCOUNTER → 2023-10-15 13:02 | Outpatient (BNVA) | payer MEDICARE, MEDICAID, SELFPAY | PROVIDERS: PCP Internal Medicine; Visit Provider Internal Medicine | DX: I82.503 Chronic embolism and thrombosis of unspecified deep veins of lower extremity, bilateral (principal); Z79.01 Long term (current) use of anticoagulants; Z51.81 Encounter for therapeutic drug level monitoring | CPT/HCPCS: 85610; 99211 ==

== ENCOUNTER 2023-10-30 11:29 | Outpatient (AMB) | payer MEDICARE, MEDICAID, SELFPAY ==
[2023-10-30 11:40] VITALS: BP 141/78; PULSE 69; O2SAT 97; BMI 24.4
--- NOTE | 2023-10-30 11:40 | MHC.OFFVIS ---
Vital Signs 10/30/23 11:40 Height 5 ft 10 in Weight 169 lb 12.095 oz BMI 24.4 BP 141/78 H Blood Pressure Location Lt brachial Position Sitting Pulse 69 Pulse Source Pulse Oximeter Pulse Oximetry (%) 97 Oxygen Delivery Method Room Air Intake Visit Reasons: PILL COUNT Allergies doxycycline Allergy (Intermediate, Verified 10/15/23 13:31) Nausea and Vomiting HPI Comments Details: Bao presents to the office today, accompanied by his son, for follow up chronic pain and chronic opioid therapy management. Patient is prescribed oxyocodone-acetaminophen 5-325mg take 1 tablet three times a day. Patient arrived today with the expectation of having 75 pills, he presented 72 pills which were counted in the presence of two staff members and returned to the patient in the original prescription bottle. This demonstrates responsible attitude toward patient's opioid medications. Pain today is reported today as 9/10 and last dose of pain medication was taken at 08:00 this morning. Patient denies side effects including constipation, somnolence, weakness, dizziness, nausea or vomiting. Feels pain is worse today than usual because of the recent rain and humidity. Previously: He was under care of Dr. Dunn.? Attempts to convert him to buprenorphine in the form of Bel[place] or buprenorphine patch failed. He suffers from postlaminectomy syndrome, he suffers from vascular insufficiency of bilateral lower extremities.? He has negative about neuromodulation. 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, without long-term current use of insulin Effusion of right knee joint Contusion of right knee Hemarthrosis involving knee joint Left shoulder pain Appetite impaired Hearing difficulty Weight loss Cough Non-rheumatic aortic stenosis Chronic pain syndrome Postlaminectomy syndrome Diabetic polyneuropathy Gastric carcinoma Peripheral vascular disease Pneumonia Hyperlipidemia LDL goal <70 COPD (chronic obstructive pulmonary disease) Type 2 diabetes mellitus with hyperglycemia Vitamin B12 deficiency Bronchiectasis Moderate aortic stenosis Compression fracture of L1 lumbar vertebra Recurrent deep vein thrombosis (DVT) Peripheral vascular disease History of gastric cancer BPH (benign prostatic hyperplasia) COPD (chronic obstructive pulmonary disease) Joint pain Surgical History History of colonoscopy Amputation of toe of left foot History of gastrectomy Family History Father Diabetes Cancer Mother Diabetes Brother Lung cancer Social History Household Members: None Household Members Other:: lives alone son checks by daily Housing: Apartment Are you a primary managed care coordinator to a significant other at home: No Do you presently have visiting nurse or other home services: No Alcohol intake: former Year quit: 1969 Patient Tobacco Use Status: Never used Tobacco e-Cigarette/Vaping Use: Never Used Second Hand Smoke Exposure: No service: No Current occupational status: retired Cognitive needs: Yes (walker/power chair) Hearing needs: No Vision needs: Yes (reading) Review of Systems Const All systems reviewed & are unremarkable except as noted in HPI and below Physical Exam Vital Signs: Last Vital Signs Pulse 69 10/30/23 11:40 BP 141/78 H 10/30/23 11:40 Pulse Ox 97 10/30/23 11:40 Oxygen Delivery Method Room Air 10/30/23 11:40 BMI result Body Mass Index 24.4 General: awake, alert, oriented. Answers questions appropriately. Fully engaged in examination. Skin: warm, dry, intact HEENT: Normocephalic. Hearing intact. Cardiac: External chest normal in appearance. Respiratory: No cough, audible wheezing or stridor. Abdomen: without gross distension. Soft, nontender. No guarding MS: No obvious swelling or deformities. Able to transition from sit to stand unassisted. Ambulates with bilaterally normal heel strike and toe off Neurological: Oriented to person, place, time and situation. Thought process intact. Utilizes a walking stick. Psychiatric: Appropriate mood and affect. Good judgment and insight. Results Reviewed Results Reviewed: Ordering Physician: Ron Pritchard MD Date of Service: 06/10/21 Procedure(s): XR knee RT 3V Accession Number(s): [id number] cc: Ron Pritchard MD~ EXAMINATION: XR KNEE, RIGHT XR FOOT, RIGHT CLINICAL INFORMATION: Trauma.? COMPARISON: None? TECHNIQUE: 4 views of the right knee. 3 views of the right foot.? FINDINGS: Right knee: No fracture or subluxation. Moderate medial compartment joint space narrowing. Moderate tricompartmental marginal osteophytes noted. Moderate joint effusion. Anterior soft tissue swelling overlies the quadriceps region. Enthesophyte formation of the patella. Diffuse vascular calcification. Right foot: No fracture or dislocation. Alignment is maintained. Moderate heel spurs. Diffuse vascular calcifications.? XR/XR knee RT 3V IMPRESSION: No acute osseous abnormality of the right knee or foot. ? Moderate degenerative changes of the right knee with joint effusion present. ? Heel spurs.? Assessment & Plan Assessment & Plan (1) Peripheral vascular disease: Comment: Left lower extremity vascular occluded on Left dorsalis pedis significant disease January 2021 Code(s): I73.9 - Peripheral vascular disease, unspecified Category: Medical (2) Controlled type 2 diabetes mellitus with diabetic nephropathy, without long-term current use of insulin: Code(s): E11.21 - Type 2 diabetes mellitus with diabetic nephropathy Category: Medical (3) Diabetic polyneuropathy: Code(s): E11.42 - Type 2 diabetes mellitus with diabetic polyneuropathy Category: Medical (4) Postlaminectomy syndrome: Code(s): M96.1 - Postlaminectomy syndrome, not elsewhere classified Category: Medical (5) Chronic pain syndrome: Code(s): G89.4 - Chronic pain syndrome Category: Medical Plan Patient is suffering from significant peripheral lower extremity arterial disease and post laminectomy syndrome. Masspat was reviewed and without concerns. No obvious signs of diversion, abuse or misuse of the opioid medications. Will send in prescription for oxycodone/acetaminophen 5-325 mg BID with an advanced date of 11/24/23. Has narcan at home, son states he has been educated on use. Patient to follow-up in the office in 1 month, sooner if needed. All questions and concerns have been answered and patient agrees with the plan. Medications: Refilled oxycodone-acetaminophen 5-325 mg Partial Fill only upon patient request. 1 tab PO Q8H 30 days PRN 90 tabs 0RF pain M47.816 - Spondylosis without myelopathy or radiculopathy, lumbar region Coding Level of Care Code Est Pt Level 4 (93685) Diagnoses Peripheral vascular disease I73.9 Controlled type 2 diabetes mellitus with diabetic nephropathy, without long-term current use of insulin E11.21 Diabetic polyneuropathy E11.42 Postlaminectomy syndrome M96.1 Chronic pain syndrome G89.4
== END 2023-10-30 11:52 | disposition home or self-care (01) ==
PROVIDERS: PCP Internal Medicine; Visit Provider Registered Nurse Emergency
DX: I73.9 Peripheral vascular disease, unspecified (principal); E11.21 Type 2 diabetes mellitus with diabetic nephropathy; E11.42 Type 2 diabetes mellitus with diabetic polyneuropathy; M96.1 Postlaminectomy syndrome, not elsewhere classified; G89.4 Chronic pain syndrome
CPT/HCPCS: 99214

== ENCOUNTER → 2023-10-30 11:29 | Outpatient (BNVA) | payer MEDICARE, MEDICAID, SELFPAY | PROVIDERS: PCP Internal Medicine; Visit Provider Registered Nurse Emergency | DX: E11.51 Type 2 diabetes mellitus with diabetic peripheral angiopathy without gangrene (principal); E11.21 Type 2 diabetes mellitus with diabetic nephropathy; E11.42 Type 2 diabetes mellitus with diabetic polyneuropathy; M96.1 Postlaminectomy syndrome, not elsewhere classified; G89.4 Chronic pain syndrome; Z51.81 Encounter for therapeutic drug level monitoring | CPT/HCPCS: 99212 ==

== ENCOUNTER 2023-10-30 13:04 | Outpatient (AMB) | payer MEDICARE, MEDICAID, SELFPAY ==
[2023-10-30 13:52] VITALS: BP 112/62; PULSE 66; O2SAT 96; BMI 24.4
--- NOTE | 2023-10-30 13:52 | A.OFFPC_ITS ---
Vital Signs 10/30/23 13:52 Height 5 ft 10 in Weight 170 lb 6 oz BMI 24.4 BP 112/62 Blood Pressure Location Lt brachial Position Sitting Pulse 66 Pulse Source Pulse Oximeter Pulse Oximetry (%) 96 Oxygen Delivery Method Room Air Intake Visit Reasons: DM Staffing Executive Required: No Accompanied by: Self / Same As Patient Allergies doxycycline Allergy (Intermediate, Verified 10/30/23 13:53) Nausea and Vomiting Tobacco use date assessed: 10/30/23 Fall risk assessment: No Falls in past year Last assessed Fall Risk: 10/30/23 Dental Screening Dental Screen Date: 10/30/23 Did you have a dental visit in the last 12 months?: Yes Did you have a dental problem in the last 6 months where you did not have access to dental care?: No Was dental information given to patient?: Patient has dentist HPI DM HPI Details 83 year old male with multiple medical p roblems BPH chronic kidney disease moderate aortic stenosis diabetes mellitus COPD recurrent DVT hypercholesterolemia hypertension gastric cancer post laminectomy syndrome with chronic pain seeing pain management. Last seen in June. Patient follows up with Pulmonary seen in September continuing with Symbicort DuoNeb and Ventolin. 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, without long-term current use of insulin Effusion of right knee joint Contusion of right knee Hemarthrosis involving knee joint Left shoulder pain Appetite impaired Hearing difficulty Weight loss Cough Non-rheumatic aortic stenosis Chronic pain syndrome Postlaminectomy syndrome Diabetic polyneuropathy Gastric carcinoma Peripheral vascular disease Pneumonia Hyperlipidemia LDL goal <70 COPD (chronic obstructive pulmonary disease) Type 2 diabetes mellitus with hyperglycemia Vitamin B12 deficiency Bronchiectasis Moderate aortic stenosis Compression fracture of L1 lumbar vertebra Recurrent deep vein thrombosis (DVT) Peripheral vascular disease History of gastric cancer BPH (benign prostatic hyperplasia) COPD (chronic obstructive pulmonary disease) Joint pain Surgical History History of colonoscopy Amputation of toe of left foot History of gastrectomy Family History Father Diabetes Cancer Mother Diabetes Brother Lung cancer Social History Household Members: None Household Members Other:: lives alone son checks by daily Housing: Apartment Are you a primary career placement services counselor to a significant other at home: No Do you presently have visiting nurse or other home services: No Alcohol intake: former Year quit: 1969 Patient Tobacco Use Status: Never used Tobacco e-Cigarette/Vaping Use: Never Used Second Hand Smoke Exposure: No service: No Current occupational status: retired Cognitive needs: Yes (walker/power chair) Hearing needs: No Vision needs: Yes (reading) Questionnaire PHQ-9 Over the last 2 weeks, how often have you been bothered by any of the following problems? 1. Little interest or pleasure in doing things: not at all 2. Feeling down, depressed, or hopeless: not at all 3. Trouble falling or staying asleep, or sleeping too much: not at all 4. Feeling tired or having little energy: not at all 5. Poor appetite or overeating: not at all 6. Feeling bad about yourself - or that you are a failure or have let yourself or your family down: not at all 7. Trouble concentrating on things, such as reading the newspaper or watching television: not at all 8. Moving or speaking so slowly that other people could have noticed. Or the opposite - being so fidgety or restless that you have been moving around a lot more than usual: not at all 9. Thoughts that you would be better off or of hurting yourself in some way: not at all Total score: 0 Depression Screening Interpretation: Negative Depression Screening Done: Yes Source: Developed by Drs. Irwin Adrian, Teresa Pickard, Billy Linda and colleagues, with an educational janina from [employer]. Thrive Questionnaire Date Thrive assessed: 10/30/23 I am a: Patient What is your living situation today?: I have a steady place to live Within the past 12 months, did the food you bought not last and you didn't have the money to get more?: Never true Within the past 12 months, did you worry whether your food would run out before you got money to buy more?: Never true Do you have trouble paying for medicines?: No Do you have trouble getting transportation to medical appointments?: No Do you have trouble paying your heating and electricity bill?: No Do you have trouble taking care of your child, family member or friend?: No Do you have trouble with day-to-day activities such as bathing, preparing meals, shopping, managing finances, etc.?: No Are you currently unemployed and looking for a job?: No Are you interested in more education?: No Please select the resources that you would like help with: None Currently or been in a relationship where the following occur: No concerns reported THRIVE Score: 0 AUDIT C Alcohol Use Questionnaire (AUDIT-C) 1. How often do you have a drink containing alcohol?: Never 3. How often do you have six or more drinks on one occasion?: Never Total Score: 0 Score Reviewed/Action Taken: No SHANNON-7 AMB Questionnaire SHANNON-7 Date SHANNON - 7 assessed: 10/30/23 Feeling nervous, anxious, or on edge: 0 = Not at all Not being able to stop or control worryin = Not at all Worrying too much about different things: 0 = Not at all Trouble relaxin = Not at all Being so restless that it is hard to sit still: 0 = Not at all Becoming easily annoyed or irritable: 0 = Not at all Feeling afraid as if something awful might happen: 0 = Not at all Total SHANNON-7 score (0-4 normal; 5-9 mild; 10-14 moderate; 15-21 severe): 0 Source: Developed by Drs. Irwin Adrian, Teresa Pickard, Billy Linda and colleagues, with an educational janina from [employer]. Physical exam (Primary Care) Vital Signs: Last Vital Signs Pulse 66 10/30/23 13:52 BP 112/62 10/30/23 13:52 Pulse Ox 96 10/30/23 13:52 Oxygen Delivery Method Room Air 10/30/23 13:52 BMI result Body Mass Index 24.4 Tobacco/Smoking Status: Tobacco use Status Tobacco use date assessed 10/30/23 10/30/23 13:56 Patient Tobacco Use Status Never used Tobacco 10/30/23 13:56 e-Cigarette/Vaping Use Never Used 10/30/23 13:56 PHQ-9: PHQ-9 Score PHQ-9: Total score 0 10/30/23 14:27 Depression Screening Interpretation: Negative Thrive Assessment: Date of Thrive Assessment Date Thrive assessed 10/30/23 10/30/23 13:56 Currently or been in a relationship where the following occur: No concerns reported Const General: alert; No acute distress Eyes Conjunctivae: conjunctivae normal Resp Auscultation: clear to auscultation bilaterally Cardio Rate: regular rate Rhythm: regular rhythm GI Inspection: Yes normal to inspection Extrem General: Yes normal to inspection and No edema Results AMB Hemoglobin A1c AMB Hemoglobin A1c 6.5 % Last Edit by MARK Nair on 10/30/23 14 :28 Results Reviewed Results Reviewed: Laboratory Last Values Hgb A1c (Clinic) 6.5 % (4.0-6.0) H 10/30/23 14:26 Assessment and Plan Assessment & Plan (1) Type 2 diabetes mellitus with hyperglycemia: Code(s): E11.65 - Type 2 diabetes mellitus with hyperglycemia Qualifiers: Diabetes mellitus buttermaker helper insulin use: without penitentiary use Qualified Code(s): E11.65 - Type 2 diabetes mellitus with hyperglycemia Plan: Decrease the amount of carbohydrate intake, pasta, bread, rice and potatoes are all sugar and that is aside from all the sweet stuff, remember that fruits are good but they are Sweet also. Hemoglobin A1c goal of less than 7.0 patient is on metformin 500 mg once a day (2) Moderate aortic stenosis: Comment: August 2019 1.5 cm sq [place] and cardiovascular As August 2021 1.1 cm2, March 2022 1.3 cm2 May 2023 1.18 cm squared Code(s): I35.0 - Nonrheumatic aortic (valve) stenosis Plan: Continuing to monitor 05/27/2023 last tested. (3) Chronic kidney disease (CKD) stage G3b/A1, moderately decreased glomerular filtration rate (GFR) between 30-44 mL/min/1.73 square meter and albuminuria creatinine ratio less than 30 mg/g: Code(s): N18.32 - Chronic kidney disease, stage 3b Plan: Keep well hydrated avoid NSAIDs (4) COPD (chronic obstructive pulmonary disease): Comment: This patient is well known to have chronic obstructive pulmonary disease, moderately severe. He is staying stable with the current medical regimen , except for intermittent increase in cough and mucus production. Code(s): J44.9 - Chronic obstructive pulmonary disease, unspecified Qualifiers: COPD type: emphysema Emphysema type: unspecified Qualified Code(s): J43.9 - Emphysema, unspecified Plan: Continue with the inhaler and sees pulmonary (5) Recurrent deep vein thrombosis (DVT): Comment: Left lower extremity bypass graft Code(s): I82.409 - Acute embolism and thrombosis of unspecified deep veins of unspecified lower extremity Plan: Continue with anticoagulation (6) Essential hypertension: Code(s): I10 - Essential (primary) hypertension Plan: Continue with blood pressure medication. Decrease salt intake and exercise on metoprolol 25 mg once a day amlodipine 10 mg once a day (7) Hyperlipidemia LDL goal <70: Code(s): E78.5 - Hyperlipidemia, unspecified Plan: Avoid fried foods, chicken skin, eggs, butter margarine, pastries and meat. Be it pork or beef they have a lot of cholesterol LDL goal of less than 70 and triglyceride of less than 150 on atorvastatin 40 mg once (8) Anemia: Code(s): D64.9 - Anemia, unspecified Plan: Continuing to monitor (9) Postlaminectomy syndrome: Code(s): M96.1 - Postlaminectomy syndrome, not elsewhere classified Plan: Continue with pain management Orders: Orders AMB Hemoglobin A1c Today Z13.9 - Encounter for screening, unspecified Complete Blood Count Auto Diff 3 Months E11.65 - Type 2 diabetes mellitus with hyperglycemia Comprehensive Met. Panel 3 Months E11.65 - Type 2 diabetes mellitus with hyperglycemia Free T4 (Free Thyroxine) 3 Months E11.65 - Type 2 diabetes mellitus with hyperglycemia Lipid Panel 3 Months E11.65 - Type 2 diabetes mellitus with hyperglycemia, E78.00 - Pure hypercholesterolemia, unspecified Reticulocyte Count 3 Months E11.65 - Type 2 diabetes mellitus with hyperglycemia IRON PROFILE 3 Months E11.65 - Type 2 diabetes mellitus with hyperglycemia Thyroid Stimulating Hormone 3 Months E11.65 - Type 2 diabetes mellitus with hyperglycemia Vitamin B12 and Folate 3 Months E11.65 - Type 2 diabetes mellitus with hyperglycemia Microalbumin, Random (w Creat) 3 Months E11.65 - Type 2 diabetes mellitus with hyperglycemia Creatinine Urine 3 Months E11.65 - Type 2 diabetes mellitus with hyperglycemia Ferritin 3 Months E11.65 - Type 2 diabetes mellitus with hyperglycemia Hemoglobin A1c 3 Months E11.65 - Type 2 diabetes mellitus with hyperglycemia Medications: Discontinued amlodipine Discontinued Reason: Duplicate 5 mg PO DAILY 90 days 90 tabs 2RF Coding Level of Care Code Est Pt Level 4 (18715) Complex EM visit Add On G2211 Diagnoses Type 2 diabetes mellitus with hyperglycemia, without long-term current use of insulin E11.65 Diabetes mellitus buttermaker helper insulin use: without buttermaker helper use Moderate aortic stenosis I35.0 Chronic kidney disease (CKD) stage G3b/A1, moderately decreased glomerular filtration rate (GFR) between 30-44 mL/min/1.73 square meter and albuminuria cr eatinine ratio less than 30 mg/g N18.32 Pulmonary emphysema, unspecified emphysema type J43.9 COPD type: emphysema Emphysema type: unspecified Recurrent deep vein thrombosis (DVT) I82.409 Essential hypertension I10 Hyperlipidemia LDL goal <70 E78.5 Anemia D64.9 Postlaminectomy syndrome M96.1
== END 2023-10-30 14:59 | disposition home or self-care (01) ==
PROVIDERS: PCP Internal Medicine; Visit Provider Internal Medicine
DX: E11.65 Type 2 diabetes mellitus with hyperglycemia (principal); I35.0 Nonrheumatic aortic (valve) stenosis; N18.32 Chronic kidney disease, stage 3b; J43.9 Emphysema, unspecified; I82.409 Acute embolism and thrombosis of unspecified deep veins of unspecified lower extremity; I10 Essential (primary) hypertension; E78.5 Hyperlipidemia, unspecified; D64.9 Anemia, unspecified; M96.1 Postlaminectomy syndrome, not elsewhere classified; Z13.9 Encounter for screening, unspecified
CPT/HCPCS: 83036; 99214; G2211

== ENCOUNTER 2023-11-12 13:02 | Outpatient (AMB) | payer MEDICARE, MEDICAID, SELFPAY ==
--- NOTE | 2023-11-12 13:14 | MHC.OFFVISCO ---
Intake Intake Visit Reasons: Anticoagulation Allergies doxycycline Allergy (Intermediate, Verified 11/12/23 13:09) Nausea and Vomiting Medication List - Last Reconciled 11/12/23 by Francheska Chung RN amlodipine 10 mg PO DAILY ascorbic acid (vitamin C) 1 g PO DAILY atorvastatin 40 mg PO DAILY blood pressure monitor (Blood Pressure Kit) As directed blood sugar diagnostic ([employer] Verio test strips) one time daily blood-glucose meter ([employer] Verio Meter) To check blood glucose once daily budesonide-formoterol 160-4.5 mcg/actuation (Symbicort) 2 puffs PO BID cholecalciferol (vitamin D3) 25 mcg PO DAILY cilostazol 100 mg PO BID cyanocobalamin (vitamin B-12) (Vitamin B-12) 250 mcg PO DAILY ferrous sulfate (FeroSul) 325 mg PO BID fluticasone propionate 50 mcg/actuation 2 sprays intranasal DAILY gabapentin 300 mg PO DAILY 90 days [garlic clove 1 dose PO NEEDED] ipratropium-albuterol 0.5 mg-3 mg(2.5 mg base)/3 mL 3 mL inhalation Q6H lancets ([employer] Delica Plus Lancet) To test bg daily lancets As directed metformin 500 mg PO DAILY metoprolol succinate ER 25 mg PO DAILY naloxone 4 mg/actuation (Narcan) 4 mg intranasal Q2M 1 day oxycodone-acetaminophen 5-325 mg 1 tab PO Q8H PRN 30 days Ventolin HFA 90 mcg/actuation (albuterol sulfate) 2 puffs inhalation Q4-6H PRN NS walker (Ultra-Light Rollator [facility] As directed, ambulate at all times with walker warfarin 5 mg See Protocol PO DAILY warfarin 2.5 mg See Protocol PO DAILY 90 days Nursing Note INR 4.3- out of therapeutic range of 2-3 Medications and supplements reviewed Patient status: amb with alexus c.radha fatigue pt unsure why inr is elev Medications or supplements: no changes Diet: same Denies any signs and symptoms of bleeding or clotting or unusual bruising Bleeding, bruising, clotting discussed - aware at risk for bleeding and to monitor Nutritional guidance given: eat greens to lower, no reds for 2-3 days Dose: no warfarin today then cont reg , 2.5mg x 2, 5mgt x 5 F/U INR Date : 1 week?? Patient and son verbalizing understanding of instructions given. Anti-Coag Initial Assessment Social Hx Patient Tobacco Use Status: Never used Tobacco alcohol intake: former Alcohol intake frequency: does not drink Coding Level of Care Code Est Patient Level 1 Diagnoses Current use of anticoagulant therapy Z79.01 Assessment & Plan Assessment & Plan (1) Current use of anticoagulant therapy: Code(s): Z79.01 - longterm (current) 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
[2023-11-12 13:16] LABS: Prothrombin Time Whole Bld POC 52.1 sec (11.1-13.5); ~PT, ~INR - Anti Coag Clinic 4.3 (0.9-1.1)
== END 2023-11-12 13:22 | disposition home or self-care (01) ==
LOC: HO.ACS 13:02
PROVIDERS: PCP Internal Medicine; Visit Provider Internal Medicine
DX: Z79.01 Long term (current) use of anticoagulants (principal)

== ENCOUNTER → 2023-11-12 13:02 | Outpatient (BNVA) | payer MEDICARE, MEDICAID, SELFPAY | PROVIDERS: PCP Internal Medicine; Visit Provider Internal Medicine | DX: I82.503 Chronic embolism and thrombosis of unspecified deep veins of lower extremity, bilateral (principal); Z79.01 Long term (current) use of anticoagulants; Z51.81 Encounter for therapeutic drug level monitoring | CPT/HCPCS: 85610; 99211 ==

== ENCOUNTER 2023-11-19 13:03 | Outpatient (AMB) | payer MEDICARE, MEDICAID, SELFPAY ==
[2023-11-19 13:22] LABS: Prothrombin Time Whole Bld POC 25.6 sec (11.1-13.5); ~PT, ~INR - Anti Coag Clinic 2.1 (0.9-1.1)
--- NOTE | 2023-11-19 13:31 | MHC.OFFVISCO ---
Intake Intake Visit Reasons: Anticoagulation Allergies doxycycline Allergy (Intermediate, Verified 11/19/23 13:16) Nausea and Vomiting Medication List - Last Reconciled 11/19/23 by Rakel Ngo RN amlodipine 10 mg PO DAILY ascorbic acid (vitamin C) 1 g PO DAILY atorvastatin 40 mg PO DAILY blood pressure monitor (Blood Pressure Kit) As directed blood sugar diagnostic ([employer]Touch Verio test strips) one time daily blood-glucose meter ([employer] Verio Meter) To check blood glucose once daily budesonide-formoterol 160-4.5 mcg/actuation (Symbicort) 2 puffs PO BID cholecalciferol (vitamin D3) 25 mcg PO DAILY cilostazol 100 mg PO BID cyanocobalamin (vitamin B-12) (Vitamin B-12) 250 mcg PO DAILY ferrous sulfate (FeroSul) 325 mg PO BID fluticasone propionate 50 mcg/actuation 2 sprays intranasal DAILY gabapentin 300 mg PO DAILY 90 days [garlic clove 1 dose PO NEEDED] ipratropium-albuterol 0.5 mg-3 mg(2.5 mg base)/3 mL 3 mL inhalation Q6H lancets ([employer] Delica Plus Lancet) To test bg daily lancets As directed metformin 500 mg PO DAILY metoprolol succinate ER 25 mg PO DAILY naloxone 4 mg/actuation (Narcan) 4 mg intranasal Q2M 1 day oxycodone-acetaminophen 5-325 mg 1 tab PO Q8H PRN 30 days Ventolin HFA 90 mcg/actuation (albuterol sulfate) 2 puffs inhalation Q4-6H PRN NS walker (Ultra-Light Rollator misc) As directed, ambulate at all times with walker warfarin 5 mg See Protocol PO DAILY warfarin 2.5 mg See Protocol PO DAILY 90 days Nursing Note INR: 2.1 in therapeutic range Medications and supplements reviewed No changes in health, diet, medications, or supplements, pt would like to try an herbal tea for better overall health- it has many ingredients and needs research, Oil-reducing tea Insructed to have only 1 cup /week over the next 2 weeks - due the needed research Denies any signs and symptoms of bleeding or bruising or clotting. Bleeding, bruising, clotting discussed Nutritional guidance given - keep up weekly greens Dose: resume usual dose 2.5mg x 2 days/ 5mg x 5 days F/U INR: 2 weeks Patient verbalizes understanding of instructions given Anti-Coag Initial Assessment Social Hx Patient Tobacco Use Status: Never used Tobacco alcohol intake: former Alcohol intake frequency: does not drink Coding Level of Care Code Est Patient Level 2 Diagnoses Current use of anticoagulant therapy Z79.01 Comment research tea multi supplement drink Results AMB INR Fingerstick AMB INR Fingerstick 2.1 Last Edit by Rakel Ngo RN on 11/19/23 13:26 manual entry Assessment & Plan Assessment & Plan (1) Current use of anticoagulant therapy: Code(s): Z79.01 - [facility] (current) 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
== END 2023-11-19 13:37 | disposition home or self-care (01) ==
LOC: HO.ACS 13:03
PROVIDERS: PCP Internal Medicine; Visit Provider Internal Medicine
DX: Z79.01 Long term (current) use of anticoagulants (principal)

== ENCOUNTER → 2023-11-19 13:03 | Outpatient (BNVA) | payer MEDICARE, MEDICAID, SELFPAY | PROVIDERS: PCP Internal Medicine; Visit Provider Internal Medicine | DX: I82.503 Chronic embolism and thrombosis of unspecified deep veins of lower extremity, bilateral (principal); Z79.01 Long term (current) use of anticoagulants; Z51.81 Encounter for therapeutic drug level monitoring | CPT/HCPCS: 85610; 99212 ==

== ENCOUNTER 2023-12-03 14:40 | Outpatient (AMB) | payer MEDICARE, MEDICAID, SELFPAY ==
[2023-12-03 14:54] LABS: Prothrombin Time Whole Bld POC 32.1 sec (11.1-13.5); ~PT, ~INR - Anti Coag Clinic 2.7 (0.9-1.1)
--- NOTE | 2023-12-03 15:52 | MHC.OFFVISCO ---
Intake Intake Visit Reasons: Anticoagulation Allergies doxycycline Allergy (Intermediate, Verified 12/03/23 14:49) Nausea and Vomiting Medication List - Last Reconciled 12/03/23 by Fouzia Mcginnis RN amlodipine 10 mg PO DAILY ascorbic acid (vitamin C) 1 g PO DAILY atorvastatin 40 mg PO DAILY blood pressure monitor (Blood Pressure Kit) As directed blood sugar diagnostic (OwlrTouch Verio test strips) one time daily blood-glucose meter ([employer] Verio Meter) To check blood glucose once daily budesonide-formoterol 160-4.5 mcg/actuation (Symbicort) 2 puffs PO BID cholecalciferol (vitamin D3) 25 mcg PO DAILY cilostazol 100 mg PO BID cyanocobalamin (vitamin B-12) (Vitamin B-12) 250 mcg PO DAILY ferrous sulfate (FeroSul) 325 mg PO BID fluticasone propionate 50 mcg/actuation 2 sprays intranasal DAILY gabapentin 300 mg PO DAILY 90 days [garlic clove 1 dose PO NEEDED] ipratropium-albuterol 0.5 mg-3 mg(2.5 mg base)/3 mL 3 mL inhalation Q6H lancets ([employer] Delica Plus Lancet) To test bg daily lancets As directed metformin 500 mg PO DAILY metoprolol succinate ER 25 mg PO DAILY naloxone 4 mg/actuation (Narcan) 4 mg intranasal Q2M 1 day oxycodone-acetaminophen 5-325 mg 1 tab PO Q8H PRN 30 days Ventolin HFA 90 mcg/actuation (albuterol sulfate) 2 puffs inhalation Q4-6H PRN NS [place]ra[place] [facility] [place] As directed, ambulate at all times with walker warfarin 5 mg See Protocol PO DAILY warfarin 2.5 mg See Protocol PO DAILY 90 days Nursing Note Pt to ACS by self. Gait steady with use of a cane. Pt able to speak broken Azeri. Stated he drove when asked how he got here. States no new medications and denies illness. INR: 2.7 in therapeutic range of 2-3 Medications and supplements reviewed No changes in health, diet, medications, or supplements, Denies any signs and symptoms of bleeding or bruising or clotting. Bleeding, bruising, clotting discussed Nutritional guidance given Dose: continue same dose of 5mg X 5 days and 2.5mg X 2 days F/U INR: 2 weeks Patient verbalizes understanding of instructions given Son called to make sure pt made it to his appt and instructions given to him (Bao Castillo) regarding INR, dosing and date and time of next retest date. Anti-Coag Initial Assessment Social Hx Patient Tobacco Use Status: Never used Tobacco alcohol intake: former Alcohol intake frequency: does not drink Coding Level of Care Code Est Patient Level 1 Diagnoses Current use of anticoagulant therapy Z79.01 Results AMB INR Fingerstick AMB INR Fingerstick 2.7 Last Edit by Fouzia Mcginnis RN on 12/03/23 14:54 interface delay Assessment & Plan Assessment & Plan (1) Current use of anticoagulant therapy: Code(s): Z79.01 - FDC (current) 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
== END 2023-12-03 15:46 | disposition home or self-care (01) ==
LOC: HO.ACS 14:40
PROVIDERS: PCP Internal Medicine; Visit Provider Internal Medicine
DX: Z79.01 Long term (current) use of anticoagulants (principal)

== ENCOUNTER → 2023-12-03 14:40 | Outpatient (BNVA) | payer MEDICARE, MEDICAID, SELFPAY | PROVIDERS: PCP Internal Medicine; Visit Provider Internal Medicine | DX: I82.503 Chronic embolism and thrombosis of unspecified deep veins of lower extremity, bilateral (principal); Z79.01 Long term (current) use of anticoagulants; Z51.81 Encounter for therapeutic drug level monitoring | CPT/HCPCS: 85610; 99211 ==

== ENCOUNTER 2023-12-04 12:57 | Outpatient (AMB) | payer MEDICARE, MEDICAID, SELFPAY ==
[2023-12-04 13:04] VITALS: BP 120/78; PULSE 69; O2SAT 97; BMI 23.0
--- NOTE | 2023-12-04 13:04 | A.OFFVIS_ITS ---
Vital Signs 12/04/23 13:04 Height 5 ft 10 in Weight 160 lb BMI 23.0 BP 120/78 Blood Pressure Location Lt brachial Position Sitting Pulse 69 Pulse Source Pulse Oximeter Pulse Oximetry (%) 97 Oxygen Delivery Method Room Air Intake Visit Reasons: PILL COUNT Allergies doxycycline Allergy (Intermediate, Verified 12/04/23 13:04) Nausea and Vomiting HPI Comments Details: Bao presents to the office today, accompanied by his son, for follow up chronic pain and chronic opioid therapy management. Patient is prescribed oxyocodone-acetaminophen 5-325mg take 1 tablet three times a day. Patient arrived today with the expectation of having 60 pills, he presented 69 pills which were counted in the presence of two staff members and returned to the patient in the original prescription bottle. This demonstrates responsible attitude toward patient's opioid medications. Pain today is reported today as 8/10 and last dose of pain medication was taken at 08:00 this morning. Patient denies side effects including constipation, somnolence, weakness, dizziness, nausea or vomiting. Previously: He was under care of Dr. Dunn.? Attempts to convert him to buprenorphine in the form of Belbuca or buprenorphine patch failed. He suffers from postlaminectomy syndrome, he suffers from vascular insufficiency of bilateral lower extremities.? He has negative about neuromodulation. 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, without long-term current use of insulin Effusion of right knee joint Contusion of right knee Hemarthrosis involving knee joint Left shoulder pain Appetite impaired Hearing difficulty Weight loss Cough Non-rheumatic aortic stenosis Chronic pain syndrome Postlaminectomy syndrome Diabetic polyneuropathy Gastric carcinoma Peripheral vascular disease Pneumonia Hyperlipidemia LDL goal <70 COPD (chronic obstructive pulmonary disease) Type 2 diabetes mellitus with hyperglycemia Vitamin B12 deficiency Bronchiectasis Moderate aortic stenosis Compression fracture of L1 lumbar vertebra Recurrent deep vein thrombosis (DVT) Peripheral vascular disease History of gastric cancer BPH (benign prostatic hyperplasia) COPD (chronic obstructive pulmonary disease) Joint pain Surgical History History of colonoscopy Amputation of toe of left foot History of gastrectomy Family History Father Diabetes Cancer Mother Diabetes Brother Lung cancer Social History Household Members: None Household Members Other:: lives alone son checks by daily Housing: Apartment Are you a primary client care coordinator to a significant other at home: No Do you presently have visiting nurse or other home services: No Alcohol intake: former Year quit: 1970 Patient Tobacco Use Status: Never used Tobacco e-Cigarette/Vaping Use: Never Used Second Hand Smoke Exposure: No service: No Current occupational status: retired Cognitive needs: Yes (walker/power chair) Hearing needs: No Vision needs: Yes (reading) Review of Systems Const All systems reviewed & are unremarkable except as noted in HPI and below Physical Exam Vital Signs: Last Vital Signs Pulse 69 12/04/23 13:04 BP 120/78 12/04/23 13:04 Pulse Ox 97 12/04/23 13:04 Oxygen Delivery Method Room Air 12/04/23 13:04 BMI result Body Mass Index 23.0 General: awake, alert, oriented. Answers questions appropriately. Fully engaged in examination. Skin: warm, dry, intact HEENT: Normocephalic. Hearing intact. Cardiac: External chest normal in appearance. Respiratory: No cough, audible wheezing or stridor. Abdomen: without gross distension. Soft, nontender. No guarding MS: No obvious swelling or deformities. Able to transition from sit to stand unassisted. Ambulates with bilaterally normal heel strike and toe off Neurological: Oriented to person, place, time and situation. Thought process intact. Utilizes a walking stick. Psychiatric: Appropriate mood and affect. Good judgment and insight. Results Reviewed Results Reviewed: Ordering Physician: Ron Pritchard MD Date of Service: 06/10/21 Procedure(s): XR knee RT 3V Accession Number(s): [id number] cc: Ron Pritchard MD~ EXAMINATION: XR KNEE, RIGHT XR FOOT, RIGHT CLINICAL INFORMATION: Trauma.? COMPARISON: None? TECHNIQUE: 4 views of the right knee. 3 views of the right foot.? FINDINGS: Right knee: No fracture or subluxation. Moderate medial compartment joint space narrowing. Moderate tricompartmental marginal osteophytes noted. Moderate joint effusion. Anterior soft tissue swelling overlies the quadriceps region. Enthesophyte formation of the patella. Diffuse vascular calcification. Right foot: No fracture or dislocation. Alignment is maintained. Moderate heel spurs. Diffuse vascular calcifications.? XR/XR knee RT 3V IMPRESSION: No acute osseous abnormality of the right knee or foot. ? Moderate degenerative changes of the right knee with joint effusion present. ? Heel spurs.? Assessment & Plan Assessment & Plan (1) Peripheral vascular disease: Comment: Left lower extremity vascular occluded on Left dorsalis pedis significant disease January 2021 Code(s): I73.9 - Peripheral vascular disease, unspecified Category: Medical (2) Controlled type 2 diabetes mellitus with diabetic nephropathy, without long- term current use of insulin: Code(s): E11.21 - Type 2 diabetes mellitus with diabetic nephropathy Category: Medical (3) Diabetic polyneuropathy: Code(s): E11.42 - Type 2 diabetes mellitus with diabetic polyneuropathy Category: Medical (4) Postlaminectomy syndrome: Code(s): M96.1 - Postlaminectomy syndrome, not elsewhere classified Category: Medical (5) Chronic pain syndrome: Code(s): G89.4 - Chronic pain syndrome Category: Medical Plan Masspat was reviewed and without concerns. No obvious signs of diversion, abuse or misuse of the opioid medications. Will send in prescription for oxycodone/acetaminophen 5-325 mg BID with an adv anced date of 12/25/23. Patient to follow-up in the office in 1 month, sooner if needed. All questions and concerns have been answered and patient agrees with the plan. Medications: Refilled oxycodone-acetaminophen 5-325 mg Partial Fill only upon patient request. 1 tab PO Q8H PRN 90 tabs 0RF pain 30 days M47.816 - Spondylosis without myelopathy or radiculopathy, lumbar region Coding Level of Care Code Est Pt Level 4 (24430) Complex EM visit Add On G2211 Diagnoses Peripheral vascular disease I73.9 Controlled type 2 diabetes mellitus with diabetic nephropathy, without long-term current use of insulin E11.21 Diabetic polyneuropathy E11.42 Postlaminectomy syndrome M96.1 Chronic pain syndrome G89.4
== END 2023-12-04 13:10 | disposition home or self-care (01) ==
PROVIDERS: PCP Internal Medicine; Visit Provider Registered Nurse Emergency
DX: I73.9 Peripheral vascular disease, unspecified (principal); E11.21 Type 2 diabetes mellitus with diabetic nephropathy; E11.42 Type 2 diabetes mellitus with diabetic polyneuropathy; M96.1 Postlaminectomy syndrome, not elsewhere classified; G89.4 Chronic pain syndrome
CPT/HCPCS: 99214; G2211

== ENCOUNTER → 2023-12-04 12:57 | Outpatient (BNVA) | payer MEDICARE, MEDICAID, SELFPAY | PROVIDERS: PCP Internal Medicine; Visit Provider Registered Nurse Emergency | DX: I73.9 Peripheral vascular disease, unspecified (principal); M96.1 Postlaminectomy syndrome, not elsewhere classified; G89.4 Chronic pain syndrome; E11.21 Type 2 diabetes mellitus with diabetic nephropathy; E11.42 Type 2 diabetes mellitus with diabetic polyneuropathy; Z79.891 Long term (current) use of opiate analgesic; Z51.81 Encounter for therapeutic drug level monitoring | CPT/HCPCS: 99212 ==

== ENCOUNTER 2023-12-17 13:03 | Outpatient (AMB) | payer MEDICARE, MEDICAID, SELFPAY ==
[2023-12-17 13:10] LABS: ~PT, ~INR - Anti Coag Clinic 3.7 (0.9-1.1)
--- NOTE | 2023-12-17 13:16 | MHC.OFFVISCO ---
Intake Intake Visit Reasons: Anticoagulation Allergies doxycycline Allergy (Intermediate, Verified 12/17/23 13:05) Nausea and Vomiting Medication List - Last Reconciled 12/17/23 by Fouzia Mcginnis RN amlodipine 10 mg PO DAILY ascorbic acid (vitamin C) 1 g PO DAILY atorvastatin 40 mg PO DAILY blood pressure monitor (Blood Pressure Kit) As directed blood sugar diagnostic ([employer] orthodox TechnologyTouch Verio test strips) one time daily blood-glucose meter ([employer] Material[employer] Verio Meter) To check blood glucose once daily budesonide-formoterol 160-4.5 mcg/actuation (Symbicort) 2 puffs PO BID cholecalciferol (vitamin D3) 25 mcg PO DAILY cilostazol 100 mg PO BID cyanocobalamin (vitamin B-12) (Vitamin B-12) 250 mcg PO DAILY ferrous sulfate (FeroSul) 325 mg PO BID fluticasone propionate 50 mcg/actuation 2 sprays intranasal DAILY gabapentin 300 mg PO DAILY 90 days [garlic clove 1 dose PO NEEDED] ipratropium-albuterol 0.5 mg-3 mg(2.5 mg base)/3 mL 3 mL inhalation Q6H lancets ([employer] Delica Plus Lancet) To test bg daily lancets As directed metformin 500 mg PO DAILY metoprolol succinate ER 25 mg PO DAILY naloxone 4 mg/actuation (Narcan) 4 mg intranasal Q2M 1 day oxycodone-acetaminophen 5-325 mg 1 tab PO Q8H PRN 30 days Ventolin HFA 90 mcg/actuation (albuterol sulfate) 2 puffs inhalation Q4-6H PRN NS walker (Ultra-Light Rollator [facility] [place]) As directed, ambulate at all times with walker warfarin 5 mg See Protocol PO DAILY warfarin 2.5 mg See Protocol PO DAILY 90 days Nursing Note INR 3.7?out of therapeutic range 2-3 Medications and supplements reviewed Patient status: well Medications or supplements: no changes Diet: usual diet for pt Denies any signs and symptoms of bleeding or clotting or unusual bruising Bleeding, bruising, clotting discussed Nutritional guidance given: to have a serving of greens today Dose: decrease today's dose to 2.5mg (5mg) then resume usual dose of 5mg X 5 days and 2.5mg X 2 days F/U INR Date : 2 weeks?? Patient verbalizing understanding of instructions given. Anti-Coag Initial Assessment Social Hx Patient Tobacco Use Status: Never used Tobacco alcohol intake: former Alcohol intake frequency: does not drink Coding Level of Care Code Est Patient Level 1 Diagnoses Current use of anticoagulant therapy Z79.01 Assessment & Plan Assessment & Plan (1) Current use of anticoagulant therapy: Code(s): Z79.01 - [employer]orer [employer] (current) 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
== END 2023-12-17 13:19 | disposition home or self-care (01) ==
LOC: HO.ACS 13:03
PROVIDERS: PCP Internal Medicine; Visit Provider Internal Medicine
DX: Z79.01 Long term (current) use of anticoagulants (principal)

== ENCOUNTER → 2023-12-17 13:03 | Outpatient (BNVA) | payer MEDICARE, MEDICAID, SELFPAY | PROVIDERS: PCP Internal Medicine; Visit Provider Internal Medicine | DX: I82.503 Chronic embolism and thrombosis of unspecified deep veins of lower extremity, bilateral (principal); Z79.01 Long term (current) use of anticoagulants; Z51.81 Encounter for therapeutic drug level monitoring | CPT/HCPCS: 85610; 99211 ==

== ENCOUNTER 2023-12-31 11:43 | Outpatient (AMB) | payer MEDICARE, MEDICAID, SELFPAY ==
--- NOTE | 2023-12-31 11:50 | AM.OFFVISNUR ---
Intake Visit Reasons: Flu shot Allergies doxycycline Allergy (Intermediate, Verified 12/17/23 13:05) Nausea and Vomiting Office Procedures Flu Questionnaire Does the patient have a severe egg allergy?: No Does the patient have severe life threatening allergies?: No Does the patient have a fever or illness today?: No Has the patient ever had Guillain-[place] Syndrome?: No Has the patient ever had any past reaction to a flu shot?: No Assessment & Plan Assessment & Plan Orders: Orders Influenza [id number] Immunization Today Z23 - Encounter for immunization Medications: New Fluarix Triv [id number] (PF) (flu vacc [id number] 6mos up(PF)) 0.5 mL IM ONCE 0.5 mL 0RF NS Z23 - Encounter for immunization
== END 2023-12-31 11:58 | disposition home or self-care (01) ==
PROVIDERS: PCP Internal Medicine; Visit Provider Internal Medicine
DX: Z23 Encounter for immunization (principal)

== ENCOUNTER → 2023-12-31 11:43 | Outpatient (BNVA) | payer MEDICARE, MEDICAID, SELFPAY | PROVIDERS: PCP Internal Medicine; Visit Provider Internal Medicine | DX: Z23 Encounter for immunization (principal); M96.1 Postlaminectomy syndrome, not elsewhere classified; G89.4 Chronic pain syndrome; I73.9 Peripheral vascular disease, unspecified; E11.21 Type 2 diabetes mellitus with diabetic nephropathy; E11.42 Type 2 diabetes mellitus with diabetic polyneuropathy | CPT/HCPCS: 85610; 90471; 90656; 99211; 99212 ==

== ENCOUNTER 2023-12-31 12:59 | Outpatient (AMB) | payer MEDICARE, MEDICAID, SELFPAY ==
[2023-12-31 13:06] VITALS: BP 123/68; PULSE 67; O2SAT 97; BMI 24.2
--- NOTE | 2023-12-31 13:06 | MHC.OFFVIS ---
Vital Signs 12/31/23 13:06 Height 5 ft 10 in Weight 169 lb BMI 24.2 BP 123/68 Blood Pressure Location Lt brachial Position Sitting Pulse 67 Pulse Source Pulse Oximeter Pulse Oximetry (%) 97 Oxygen Delivery Method Room Air Intake Visit Reasons: Pill Count Allergies doxycycline Allergy (Intermediate, Verified 12/31/23 13:50) Nausea and Vomiting Medication List - Last Reconciled 12/31/23 by Denae Ricardo amlodipine 10 mg PO DAILY ascorbic acid (vitamin C) 1 g PO DAILY atorvastatin 40 mg PO DAILY blood pressure monitor (Blood Pressure Kit) As directed blood sugar diagnostic ([employer] Verio test strips) one time daily blood-glucose meter ([employer] Verio Meter) To check blood glucose once daily budesonide-formoterol 160-4.5 mcg/actuation (Symbicort) 2 puffs PO BID cholecalciferol (vitamin D3) 25 mcg PO DAILY cilostazol 100 mg PO BID cyanocobalamin (vitamin B-12) (Vitamin B-12) 250 mcg PO DAILY ferrous sulfate (FeroSul) 325 mg PO BID fluticasone propionate 50 mcg/actuation 2 sprays intranasal DAILY gabapentin 300 mg PO DAILY 90 days [garlic clove 1 dose PO NEEDED] ipratropium-albuterol 0.5 mg-3 mg(2.5 mg base)/3 mL 3 mL inhalation Q6H lancets ([employer] Delica Plus Lancet) To test bg daily lancets As directed metformin 500 mg PO DAILY metoprolol succinate ER 25 mg PO DAILY naloxone 4 mg/actuation (Narcan) 4 mg intranasal Q2M 1 day oxycodone-acetaminophen 5-325 mg 1 tab PO Q8H PRN 30 days Ventolin HFA 90 mcg/actuation (albuterol sulfate) 2 puffs inhalation Q4-6H PRN NS walker (Ultra-Light Rollator misc) As directed, ambulate at all times with walker warfarin 5 mg See Protocol PO DAILY warfarin 2.5 mg See Protocol PO DAILY 90 days HPI Comments Details: Bao presents to the office today, accompanied by his son, for follow up chronic pain and chronic opioid therapy management. Patient is prescribed oxyocodone-acetaminophen 5-325mg take 1 tablet three times a day. Patient arrived today with the expectation of having 69 pills, he presented 72 pills which were counted in the presence of two staff members and returned to the patient in the original prescription bottle. This demonstrates responsible attitude toward patient's opioid medications. Pain today is reported today as 7/10 and last dose of pain medication was taken at 09:00 this morning. Patient denies side effects including constipation, somnolence, weakness, dizziness, nausea or vomiting. Previously: He was under care of Dr. Dunn.? Attempts to convert him to buprenorphine in the form of Belbuca or buprenorphine patch failed. He suffers from postlaminectomy syndrome, he suffers from vascular insufficiency of bilateral lower extremities.? He has negative about neuromodulation. 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, without long-term current use of insulin Effusion of right knee joint Contusion of right knee Hemarthrosis involving knee joint Left shoulder pain Appetite impaired Hearing difficulty Weight loss Cough Non-rheumatic aortic stenosis Chronic pain syndrome Postlaminectomy syndrome Diabetic polyneuropathy Gastric carcinoma Peripheral vascular disease Pneumonia Hyperlipidemia LDL goal <70 COPD (chronic obstructive pulmonary disease) Type 2 diabetes mellitus with hyperglycemia Vitamin B12 deficiency Bronchiectasis Moderate aortic stenosis Compression fracture of L1 lumbar vertebra Recurrent deep vein thrombosis (DVT) Peripheral vascular disease History of gastric cancer BPH (benign prostatic hyperplasia) COPD (chronic obstructive pulmonary disease) Joint pain Surgical History History of colonoscopy Amputation of toe of left foot History of gastrectomy Family History Father Diabetes Cancer Mother Diabetes Brother Lung cancer Social History Household Members: None Household Members Other:: lives alone son checks by daily Housing: Apartment Are you a primary critical care nurse practitioner to a significant other at home: No Do you presently have visiting nurse or other home services: No Alcohol intake: former Year quit: 1969 Patient Tobacco Use Status: Never used Tobacco e-Cigarette/Vaping Use: Never Used Second Hand Smoke Exposure: No service: No Current occupational status: retired Cognitive needs: Yes (walker/power chair) Hearing needs: No Vision needs: Yes (reading) Review of Systems Const All systems reviewed & are unremarkable except as noted in HPI and below Physical Exam Vital Signs: Last Vital Signs Pulse 67 12/31/23 13:06 BP 123/68 12/31/23 13:06 Pulse Ox 97 12/31/23 13:06 Oxygen Delivery Method Room Air 12/31/23 13:06 BMI result Body Mass Index 24.2 General: awake, alert, oriented. Answers questions appropriately. Fully engaged in examination. Skin: warm, dry, intact HEENT: Normocephalic. Hearing intact. Cardiac: External chest normal in appearance. Respiratory: No cough, audible wheezing or stridor. Abdomen: without gross distension. Soft, nontender. No guarding MS: No obvious swelling or deformities. Able to transition from sit to stand unassisted. Ambulates with bilaterally normal heel strike and toe off Neurological: Oriented to person, place, time and situation. Thought process intact. Utilizes a walking stick. Psychiatric: Appropriate mood and affect. Good judgment and insight. Results AMB INR Fingerstick AMB INR Fingerstick 3.5 Last Edit by Fouzia Gilman RN on 12/31/23 14:00 interface failure Results Reviewed Results Reviewed: Ordering Physician: Ron Pritchard MD Date of Service: 06/10/21 Procedure(s): XR knee RT 3V Accession Number(s): [id number] cc: Ron Pritchard MD~ EXAMINATION: XR KNEE, RIGHT XR FOOT, RIGHT CLINICAL INFORMATION: Trauma.? COMPARISON: None? TECHNIQUE: 4 views of the right knee. 3 views of the right foot.? FINDINGS: Right knee: No fracture or subluxation. Moderate medial compartment joint space narrowing. Moderate tricompartmental marginal osteophytes noted. Moderate joint effusion. Anterior soft tissue swelling overlies the quadriceps region. Enthesophyte formation of the patella. Diffuse vascular calcification. Right foot: No fracture or dislocation. Alignment is maintained. Moderate heel spurs. Diffuse vascular calcifications.? XR/XR knee RT 3V IMPRESSION: No acute osseous abnormality of the right knee or foot. ? Moderate degenerative changes of the right knee with joint effusion present. ? Heel spurs.? Assessment & Plan Assessment & Plan (1) Peripheral vascular disease: Comment: Left lower extremity vascular occluded on Left dorsalis pedis significant disease January 2021 Code(s): I73.9 - Peripheral vascular disease, unspecified Category: Medical (2) Controlled type 2 diabetes mellitus with diabetic nephropathy, without long-term current use of insulin: Code(s): E11.21 - Type 2 diabetes mellitus with diabetic nephropathy Category: Medical (3) Diabetic polyneuropathy: Code(s): E11.42 - Type 2 diabetes mellitus with diabetic polyneuropathy Category: Medical (4) Postlaminectomy syndrome: Code(s): M96.1 - Postlaminectomy syndrome, not elsewhere classified Category: Medical (5) Chronic pain syndrome: Code(s): G89.4 - Chronic pain syndrome Category: Medical Plan Masspat was reviewed and without concerns. No obvious signs of diversion, abuse or misuse of the opioid medications. Will send in prescription for oxycodone/acetaminophen 5-325 mg BID with an advanced date of 01/24/24. Patient to follow-up in the office in 1 month, sooner if needed. All questions and concerns have been answered and patient agrees with the plan. Medications: Refilled oxycodone-acetaminophen 5-325 mg Partial Fill only upon patient request. 1 tab PO Q8H PRN 90 tabs 0RF pain 30 days M47.816 - Spondylosis without myelopathy or radiculopathy, lumbar region Coding Level of Care Code Est Pt Level 4 (84731) Complex EM visit Add On G2211 Diagnoses Peripheral vascular disease I73.9 Controlled type 2 diabetes mellitus with diabetic nephropathy, without long-term current use of insulin E11.21 Diabetic polyneuropathy E11.42 Postlaminectomy syndrome M96.1 Chronic pain syndrome G89.4
== END 2023-12-31 13:17 | disposition home or self-care (01) ==
PROVIDERS: PCP Internal Medicine; Visit Provider Registered Nurse Emergency
DX: I73.9 Peripheral vascular disease, unspecified (principal); E11.21 Type 2 diabetes mellitus with diabetic nephropathy; E11.42 Type 2 diabetes mellitus with diabetic polyneuropathy; M96.1 Postlaminectomy syndrome, not elsewhere classified; G89.4 Chronic pain syndrome
CPT/HCPCS: 99214; G2211

== ENCOUNTER 2023-12-31 13:45 | Outpatient (AMB) | payer MEDICARE, MEDICAID, SELFPAY ==
--- NOTE | 2023-12-31 14:03 | MHC.OFFVISCO ---
Intake Intake Visit Reasons: Anticoagulation Allergies doxycycline Allergy (Intermediate, Verified 12/31/23 13:50) Nausea and Vomiting Medication List - Last Reconciled 12/31/23 by Fouzia Gilman RN amlodipine 10 mg PO DAILY ascorbic acid (vitamin C) 1 g PO DAILY atorvastatin 40 mg PO DAILY blood pressure monitor (Blood Pressure Kit) As directed blood sugar diagnostic (OneTouch Verio test strips) one time daily blood-glucose meter ([employer] Verio Meter) To check blood glucose once daily budesonide-formoterol 160-4.5 mcg/actuation (Symbicort) 2 puffs PO BID cholecalciferol (vitamin D3) 25 mcg PO DAILY cilostazol 100 mg PO BID cyanocobalamin (vitamin B-12) (Vitamin B-12) 250 mcg PO DAILY ferrous sulfate (FeroSul) 325 mg PO BID fluticasone propionate 50 mcg/actuation 2 sprays intranasal DAILY gabapentin 300 mg PO DAILY 90 days [garlic clove 1 dose PO NEEDED] ipratropium-albuterol 0.5 mg-3 mg(2.5 mg base)/3 mL 3 mL inhalation Q6H lancets ([employer] Delica Plus Lancet) To test bg daily lancets As directed metformin 500 mg PO DAILY metoprolol succinate ER 25 mg PO DAILY naloxone 4 mg/actuation (Narcan) 4 mg intranasal Q2M 1 day oxycodone-acetaminophen 5-325 mg 1 tab PO Q8H PRN 30 days Ventolin HFA 90 mcg/actuation (albuterol sulfate) 2 puffs inhalation Q4-6H PRN NS walker (Ultra-Light Rollator misc) As directed, ambulate at all times with walker warfarin 5 mg See Protocol PO DAILY warfarin 2.5 mg See Protocol PO DAILY 90 days Nursing Note Amb to ACS using cane accomp by son Medications and supplements reviewed No changes in health, diet, medications, or supplements, PT HAS NOT STARTEED ON [place] ROOT YET- CAN INCREASE INR AND DISCUSSED WILL NEED WEEKLY MONITORING WHEN ADDED Denies any signs and symptoms of bleeding, bruising, or clotting. Bleeding, bruising, clotting discussed INR 3.5 above therapeutic range Dose: decrease dose today to 2.5mg then resume usual dosing increase greens and be aware of reds that can raise F/U INR: 1 week Patient and son verbalizes understanding of instructions given Anti-Coag Initial Assessment Social Hx Patient Tobacco Use Status: Never used Tobacco alcohol intake: former Alcohol intake frequency: does not drink Coding Level of Care Code Est Patient Level 1 Diagnoses Current use of anticoagulant therapy Z79.01 Time Spent (min) 15 Results AMB INR Fingerstick AMB INR Fingerstick 3.5 Last Edit by Fouzia Gilman RN on 12/31/23 14:00 interface failure Assessment & Plan Assessment & Plan (1) Current use of anticoagulant therapy: Code(s): Z79.01 - terminal supervisor (current) 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
[2024-01-01 13:00] LABS: Prothrombin Time Whole Bld POC 41.4 sec (11.1-13.5); ~PT, ~INR - Anti Coag Clinic 3.5 (0.9-1.1)
== END 2023-12-31 14:13 | disposition home or self-care (01) ==
LOC: HO.ACS 13:45
PROVIDERS: PCP Internal Medicine; Visit Provider Internal Medicine
DX: Z79.01 Long term (current) use of anticoagulants (principal)

== ENCOUNTER 2024-01-08 13:07 | Outpatient (AMB) | payer MEDICARE, MEDICAID, SELFPAY ==
[2024-01-08 13:21] LABS: Prothrombin Time Whole Bld POC 29.1 sec (11.1-13.5); ~PT, ~INR - Anti Coag Clinic 2.4 (0.9-1.1)
--- NOTE | 2024-01-08 13:30 | MHC.OFFVISCO ---
Intake Intake Visit Reasons: Anticoagulation Allergies doxycycline Allergy (Intermediate, Verified 01/08/24 13:10) Nausea and Vomiting Medication List - Last Reconciled 01/08/24 by Rakel Ngo RN amlodipine 10 mg PO DAILY ascorbic acid (vitamin C) 1 g PO DAILY atorvastatin 40 mg PO DAILY blood pressure monitor (Blood Pressure Kit) As directed blood sugar diagnostic (OneTouch Verio test strips) one time daily blood-glucose meter (Rollbase (acquired by [employer])uch Verio Meter) To check blood glucose once daily budesonide-formoterol 160-4.5 mcg/actuation (Symbicort) 2 puffs PO BID cholecalciferol (vitamin D3) 25 mcg PO DAILY cilostazol 100 mg PO BID cyanocobalamin (vitamin B-12) (Vitamin B-12) 250 mcg PO DAILY ferrous sulfate (FeroSul) 325 mg PO BID fluticasone propionate 50 mcg/actuation 2 sprays intranasal DAILY gabapentin 300 mg PO DAILY 90 days [garlic clove 1 dose PO NEEDED] ipratropium-albuterol 0.5 mg-3 mg(2.5 mg base)/3 mL 3 mL inhalation Q6H lancets (Rollbase (acquired by [employer])uch Delica Plus Lancet) To test bg daily lancets As directed metformin 500 mg PO DAILY metoprolol succinate ER 25 mg PO DAILY naloxone 4 mg/actuation (Narcan) 4 mg intranasal Q2M 1 day oxycodone-acetaminophen 5-325 mg 1 tab PO Q8H PRN 30 days Ventolin HFA 90 mcg/actuation (albuterol sulfate) 2 puffs inhalation Q4-6H PRN NS walker (Ultra-Light Rollator misc) As directed, ambulate at all times with walker warfarin 5 mg See Protocol PO DAILY warfarin 2.5 mg See Protocol PO DAILY 90 days Nursing Note INR: 2.4 in therapeutic range Medications and supplements reviewed [place], t/c to son to inquire about a med if he has been on it or new because it can raise the INR Denies any signs and symptoms of bleeding or bruising or clotting. Bleeding, bruising, clotting discussed Nutritional guidance given Dose: 2.5mg x 2 days/ 5mg x 5 days F/U INR: 2 weeks Patient verbalizes understanding of instructions given Anti-Coag Initial Assessment Social Hx Patient Tobacco Use Status: Never used Tobacco alcohol intake: former Alcohol intake frequency: does not drink Coding Level of Care Code Est Patient Level 1 Diagnoses Current use of anticoagulant therapy Z79.01 Assessment & Plan Assessment & Plan (1) Current use of anticoagulant therapy: Code(s): Z79.01 - snf (current) 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
== END 2024-01-08 13:33 | disposition home or self-care (01) ==
LOC: HO.ACS 13:07
PROVIDERS: PCP Internal Medicine; Visit Provider Internal Medicine
DX: Z79.01 Long term (current) use of anticoagulants (principal)

== ENCOUNTER → 2024-01-08 13:07 | Outpatient (BNVA) | payer MEDICARE, MEDICAID, SELFPAY | PROVIDERS: PCP Internal Medicine; Visit Provider Internal Medicine | DX: I82.503 Chronic embolism and thrombosis of unspecified deep veins of lower extremity, bilateral (principal); Z79.01 Long term (current) use of anticoagulants; Z51.81 Encounter for therapeutic drug level monitoring | CPT/HCPCS: 85610; 99211 ==

== ENCOUNTER 2024-01-22 13:32 | Outpatient (AMB) | payer MEDICARE, MEDICAID, SELFPAY ==
[2024-01-22 13:39] LABS: Prothrombin Time Whole Bld POC 44.2 sec (11.1-13.5); ~PT, ~INR - Anti Coag Clinic 3.7 (0.9-1.1)
--- NOTE | 2024-01-22 13:50 | MHC.OFFVISCO ---
Intake Intake Visit Reasons: Anticoagulation Allergies doxycycline Allergy (Intermediate, Verified 01/22/24 13:34) Nausea and Vomiting Medication List - Last Reconciled 01/22/24 by Rakel Ngo RN amlodipine 10 mg PO DAILY ascorbic acid (vitamin C) 1 g PO DAILY atorvastatin 40 mg PO DAILY blood pressure monitor (Blood Pressure Kit) As directed blood sugar diagnostic (Interactive ProjectTouch Verio test strips) one time daily blood-glucose meter (Precision Biopsyuch Verio Meter) To check blood glucose once daily budesonide-formoterol 160-4.5 mcg/actuation (Symbicort) 2 puffs PO BID cholecalciferol (vitamin D3) 25 mcg PO DAILY cilostazol 100 mg PO BID cyanocobalamin (vitamin B-12) (Vitamin B-12) 250 mcg PO DAILY ferrous sulfate (FeroSul) 325 mg PO BID fluticasone propionate 50 mcg/actuation 2 sprays intranasal DAILY gabapentin 300 mg PO DAILY 90 days [garlic clove 1 dose PO NEEDED] ipratropium-albuterol 0.5 mg-3 mg(2.5 mg base)/3 mL 3 mL inhalation Q6H lancets (Precision Biopsyuch Delica Plus Lancet) To test bg daily lancets As directed metformin 500 mg PO DAILY metoprolol succinate ER 25 mg PO DAILY naloxone 4 mg/actuation (Narcan) 4 mg intranasal Q2M 1 day oxycodone-acetaminophen 5-325 mg 1 tab PO Q8H PRN 30 days Ventolin HFA 90 mcg/actuation (albuterol sulfate) 2 puffs inhalation Q4-6H PRN NS walker (Ultra-Light Rollator misc) As directed, ambulate at all times with walker warfarin 5 mg See Protocol PO DAILY warfarin 2.5 mg See Protocol PO DAILY 90 days Nursing Note INR 3.7 out of therapeutic range Medications and supplements reviewed Patient status: Pt is well - has been eating more garlic onion and beets which can raise the INR, only had 1 dandilion tea which can raise the INR also Medications or supplements: no changes Diet: good Denies any signs and symptoms of bleeding or clotting or unusual bruising Bleeding, bruising, clotting discussed Nutritional guidance given: eat more cooked greens when eating more of the fall foods Dose: decrease today's dose to 2.5mg x today then resume usual dose 2.5mg x 2 days/ 5mg 5 days F/U INR Date : 2 weeks ?? Patient verbalizing understanding of instructions given. Anti-Coag Initial Assessment Social Hx Patient Tobacco Use Status: Never used Tobacco alcohol intake: former Alcohol intake frequency: does not drink Questionnaires HAS-BLED Does the patient had uncontrolled Hypertension?: No Does the patient have renal disease?: No Does the patient have liver disease?: No Does the patient have a history of stroke?: No Has the patient had major bleeding or predisposition to bleeding?: No Does the patient have labile INRs?: Yes Is the patient over 65 years of age?: Yes Is the patient on medications that gives them a predisposition to bleeding?: Yes Does the patient use alcohol?: No HAS-BLED Score: 3 CHADSVASC Age: 75 or over Gender: Male Does the patient have a history of CHF?: No Does the patient have a history of Hypertension?: Yes Does the patient have a history of Stroke/TIA/Thromboembolism?: Yes Does the patient have a history of Vascular Disease (prior DC, PAD or aortic plaque)?: Yes (hx of arterial clots , 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 ) Does the patient have a history of Diabetes?: Yes CHADS VACS Score: 7 Umesh Prediction Score Rsk VTE Active Cancer: No Previous VTE, excluding superficial vein thrombosis: Yes Reduced mobility: Yes Already known Thrombophilic Condition: Yes With-in last month Trauma and/or Surgery: No Elderly 70 year or older: Yes Heart and/or Respiratory Failure: No Acute Myocardial infarction and/or Ischemic Stroke: No Acute Infection and/or Rheumatologic Disorder: No Obesity (BMI 30 or greater): No Ongoing Hormonal Treatment: No Score: 10 Umesh Score less than 4; Low Risk of VTE Umesh Score 4 or greater; High Risk of VTE Coding Level of Care Code Est Patient Level 1 Diagnoses Current use of anticoagulant therapy Z79.01 Results AMB INR Fingerstick AMB INR Fingerstick 3.7 Last Edit by Rakel Ngo RN on 01/22/24 13:45 MANUAL ENTRY Assessment & Plan Assessment & Plan (1) Current use of anticoagulant therapy: Code(s): 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
== END 2024-01-22 14:00 | disposition home or self-care (01) ==
LOC: HO.ACS 13:32
PROVIDERS: PCP Internal Medicine; Visit Provider Internal Medicine
DX: Z79.01 Long term (current) use of anticoagulants (principal)

== ENCOUNTER → 2024-01-22 13:32 | Outpatient (BNVA) | payer MEDICARE, MEDICAID, SELFPAY | PROVIDERS: PCP Internal Medicine; Visit Provider Internal Medicine | DX: I82.503 Chronic embolism and thrombosis of unspecified deep veins of lower extremity, bilateral (principal); Z79.01 Long term (current) use of anticoagulants; Z51.81 Encounter for therapeutic drug level monitoring | CPT/HCPCS: 85610; 99211 ==

== ENCOUNTER 2024-02-01 12:47 | Outpatient (AMB) | payer MEDICARE, MEDICAID, SELFPAY ==
--- NOTE | 2024-02-01 12:48 | A.OFFPC_ITS ---
Vital Signs 02/01/24 12:49 Height 5 ft 10 in Weight 168 lb BMI 24.1 BP 110/68 Blood Pressure Location Lt brachial Position Sitting Pulse 66 Pulse Source Pulse Oximeter Pulse Oximetry (%) 97 Oxygen Delivery Method Room Air Intake Visit Reasons: ANNUAL Intake Note: Patient is here today for a physical. 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 Allergies doxycycline Allergy (Intermediate, Verified 02/03/24 13:08) Nausea and Vomiting Medication List - Last Reconciled 02/01/24 by Chelsi Painter PA-C amlodipine 10 mg PO DAILY ascorbic acid (vitamin C) 1 g PO DAILY atorvastatin 40 mg PO DAILY blood pressure monitor (Blood Pressure Kit) As directed blood sugar diagnostic (swiftQueue Verio test strips) one time daily blood-glucose meter (AlephDuch Verio Meter) To check blood glucose once daily budesonide-formoterol 160-4.5 mcg/actuation (Symbicort) 2 puffs PO BID cholecalciferol (vitamin D3) 25 mcg PO DAILY cilostazol 100 mg PO BID cyanocobalamin (vitamin B-12) (Vitamin B-12) 250 mcg PO DAILY ferrous sulfate (FeroSul) 325 mg PO BID fluticasone propionate 50 mcg/actuation 2 sprays intranasal DAILY gabapentin 300 mg PO DAILY 90 days [garlic clove 1 dose PO NEEDED] ipratropium-albuterol 0.5 mg-3 mg(2.5 mg base)/3 mL 3 mL inhalation Q6H lancets (AlephDuch Delica Plus Lancet) To test bg daily lancets As directed metformin 500 mg PO DAILY metoprolol succinate ER 25 mg PO DAILY naloxone 4 mg/actuation (Narcan) 4 mg intranasal Q2M 1 day oxycodone-acetaminophen 5-325 mg 1 tab PO Q8H PRN 30 days Ventolin HFA 90 mcg/actuation (albuterol sulfate) 2 puffs inhalation Q4-6H PRN NS walker (Ultra-Light Rollator misc) As directed, ambulate at all times with walker warfarin 5 mg See Protocol PO DAILY warfarin 2.5 mg See Protocol PO DAILY 90 days Tobacco use date assessed: 10/30/23 Fall risk assessment: No Falls in past year Last assessed Fall Risk: 02/01/24 Dental Screening Dental Screen Date: 10/30/23 HPI ANNUAL HPI Details 83 year old male with multiple medical p roblems BPH chronic kidney disease moderate aortic stenosis diabetes mellitus COPD recurrent DVT hypercholesterolemia hypertension gastric cancer post laminectomy syndrome with chronic pain seeing pain management last seen by Dr. Barrientos October 2023 coming in for annual exam. In review of the notes patient has been following with pain management for chronic pain syndrome. Patient presents today with a family member who translates for the duration of this appointment. Patient states he is feeling generally well. States over the weekend he has been feeling more tired and denies any other symptoms. He was also told that he has protein in his urine. 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, without long-term current use of insulin Effusion of right knee joint Contusion of right knee Hemarthrosis involving knee joint Left shoulder pain Appetite impaired Hearing difficulty Weight loss Cough Non-rheumatic aortic stenosis Chronic pain syndrome Postlaminectomy syndrome Diabetic polyneuropathy Gastric carcinoma Peripheral vascular disease Pneumonia Hyperlipidemia LDL goal <70 COPD (chronic obstructive pulmonary disease) Type 2 diabetes mellitus with hyperglycemia Vitamin B12 deficiency Bronchiectasis Moderate aortic stenosis Compression fracture of L1 lumbar vertebra Recurrent deep vein thrombosis (DVT) Peripheral vascular disease History of gastric cancer BPH (benign prostatic hyperplasia) COPD (chronic obstructive pulmonary disease) Joint pain Surgical History History of colonoscopy Amputation of toe of left foot History of gastrectomy Family History Father Diabetes Cancer Mother Diabetes Brother Lung cancer Social History Household Members: None Household Members Other:: lives alone son checks by daily Housing: Apartment Are you a primary team primary care physician to a significant other at home: No Do you presently have visiting nurse or other home services: No Alcohol intake: former Year quit: 1969 Patient Tobacco Use Status: Never used Tobacco e-Cigarette/Vaping Use: Never Used Second Hand Smoke Exposure: No service: No Current occupational status: retired Cognitive needs: Yes (walker/power chair) Hearing needs: No Vision needs: Yes (reading) Questionnaire Thrive Questionnaire Date Thrive assessed: 10/30/23 I am a: Patient What is your living situation today?: I have a steady place to live Within the past 12 months, did the food you bought not last and you didn't have the money to get more?: Never true Within the past 12 months, did you worry whether your food would run out before you got money to buy more?: Never true Do you have trouble paying for medicines?: No Do you have trouble getting transportation to medical appointments?: No Do you have trouble paying your heating and electricity bill?: No Do you have trouble taking care of your child, family member or friend?: No Do you have trouble with day-to-day activities such as bathing, preparing meals, shopping, managing finances, etc.?: No Are you currently unemployed and looking for a job?: No Are you interested in more education?: No Please select the resources that you would like help with: None Currently or been in a relationship where the following occur: No concerns reported THRIVE Score: 0 AUDIT C Alcohol Use Questionnaire (AUDIT-C) 1. How often do you have a drink containing alcohol?: Never 3. How often do you have six or more drinks on one occasion?: Never Total Score: 0 Score Reviewed/Action Taken: No SHANNON-7 AMB Questionnaire SHANNON-7 Date SHANNON - 7 assessed: 10/30/23 Source: Developed by Drs. Irwin Adrian, Teresa Pickard, Billy Linda and colleagues, with an educational janina from [employer]. Review of Systems Const Denies body aches, Denies fatigue, Denies fever(s), Denies frequent falls, Denies headache(s) and Denies weakness Eyes Reports no additional complaints and Denies change in vision ENT Denies dysphagia, Denies dizziness, Denies facial pain, Denies headache(s), Denies nasal congestion and Denies odynophagia Card Denies chest pain, Denies syncope, Denies irregular heart rhythm, Denies leg edema, Denies lightheadedness and Denies dyspnea Resp Denies cough and Denies dyspnea GI Denies abdominal pain, Denies constipation, Denies dysphagia, Denies dyspepsia, Denies diarrhea, Denies nausea, Denies odynophagia and Denies vomiting Details: protein in the urine Denies dysuria, Denies urinary frequency, Denies urinary hesitancy and Denies urinary urgency Musc Denies back pain and Denies myalgias Skin/Breast Reports system reviewed and no additional complaints, except as documented Neuro Denies dizziness, Denies syncope, Denies frequent falls, Denies headache(s) and Denies weakness Psych Reports no additional complaints Endo Denies fatigue Physical exam (Primary Care) Vital Signs: Last Vital Signs Pulse 66 02/01/24 12:49 BP 110/68 02/01/24 12:49 Pulse Ox 97 02/01/24 12:49 Oxygen Delivery Method Room Air 02/01/24 12:49 BMI result Body Mass Index 24.1 Tobacco/Smoking Status: Tobacco use Status Tobacco use date assessed 10/30/23 02/01/24 12:50 Patient Tobacco Use Status Never used Tobacco 02/01/24 12:50 e-Cigarette/Vaping Use Never Used 02/01/24 12:50 Thrive Assessment: Date of Thrive Assessment Date Thrive assessed 10/30/23 02/01/24 12:50 Currently or been in a relationship where the following occur: No concerns reported Const General: cooperative, healthy appearing, comfortable and no acute distress Orientation/consciousness: patient oriented x3 HENMT Head: Yes normocephalic Ears: hearing grossly normal bilaterally, external ears normal, TM's normal bilaterally and EAC's normal General nose exam: Normal external nose present Face and sinus: Yes normal facial exam and Yes sinuses nontender Mouth: Normal oral and palatal mucosa present and tongue normal Throat: Yes posterior oropharynx normal Eyes General: appearance normal, both eyes and all related structures Conjunctivae: conjunctivae normal Pupils: Equal, round and reactive pupils present EOM: EOMs intact bilaterally and No Nystagmus present Neck Neck: Yes normal visual inspection, Yes full ROM and Yes no lymphadenopathy Chest Chest palpation & inspection: normal inspection of the chest Resp Effort & Inspection: normal respiratory effort Auscultation: clear to auscultation bilaterally, no crackles, no rales, no rhonchi, no wheezes and breath sounds present Cardio Rate: regular rate Rhythm: regular rhythm Peripheral pulses: radial pulses present and dorsalis pedis present GI Inspection: Yes normal to inspection and No Abdominal wall edema Palpation (GI): Soft to palpation, not firm and nontender Auscultation: normal bowel sounds Rectal Exam - Male: Yes deferred General: Yes no CVA tenderness Back/Spine/Pelvis Back: no CVA tenderness Skin General skin exam: no rashes or lesions noted Neuro General: patient oriented x3 Cranial nerves: Yes Equal, round and reactive pupils present, Yes Midline tongue present, Yes Ability to bilaterally elevate shoulders present and No Nystagmus present Gait exam (Neuro): Normal gait present Extrem General: Yes normal to inspection, Yes full ROM, No no pedal edema and No edema Psych Speech and movement: Normal speech and movement present Affect: normal affect Insight: Good insight present (Psych) Judgement: Good judgement present (Psych) Results AMB Hemoglobin A1c AMB Hemoglobin A1c 6.1 % Last Edit by MARK Cohen on 02/01/24 13:37 Results Reviewed Results Reviewed: Laboratory Last Values Hgb A1c (Clinic) 6.1 % (4.0-6.0) H 02/01/24 08:21 Coding Level of Care Code Est Pt Prev Care >65y(95081) Diagnoses Chronic pain syndrome G89.4 Diabetic polyneuropathy E11.42 Peripheral vascular disease I73.9 Adult general medical exam Z00.00 Hyperlipidemia LDL goal <70 E78.5 Essential hypertension I10 Recurrent deep vein thrombosis (DVT) I82.409 Pulmonary emphysema, unspecified emphysema type J43.9 COPD type: emphysema Emphysema type: unspecified Type 2 diabetes mellitus with hyperglycemia, without long-term current use of insulin E11.65 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 Patient following with pain management at this time. (2) Diabetic polyneuropathy: Code(s): E11.42 - Type 2 diabetes mellitus with diabetic polyneuropathy Category: Medical Plan: Decrease the amount of carbohydrates such as pasta, bread, rice, and potatoes and limit the amount of sweets. Although fruits are generally healthy they should be eaten in moderation as they are still high in sugar. (3) Peripheral vascular disease: Comment: Left lower extremity vascular occluded on Left dorsalis pedis significant disease January 2021 Code(s): I73.9 - Peripheral vascular disease, unspecified Category: Medical Plan: Advised compression stockings, elevation and continue on current medication with cilostazol and warfarin (4) Adult general medical exam: Code(s): Z00.00 - Encounter for general adult medical examination without abnormal findings Category: Medical Plan: Patient is up-to-date on all recommended routine screenings and vaccinations for his age. Reminded patient about blood work (5) Hyperlipidemia LDL goal <70: Code(s): E78.5 - Hyperlipidemia, unspecified Category: Medical Plan: Avoid foods that are high in cholesterol such as red meat, fried foods, eggs and baked goods. Triglyceride goal of less than 150 and LDL goal of less than 70. Continue on atorvastatin 40 mg. Reminded about blood work (6) Essential hypertension: Code(s): I10 - Essential (primary) hypertension Category: Medical Plan: Continue on current blood pressure medication. Avoid salt intake and encourage healthy diet and regular exercise. (7) Recurrent deep vein thrombosis (DVT): Comment: Left lower extremity bypass graft Code(s): I82.409 - Acute embolism and thrombosis of unspecified deep veins of unspecified lower extremity Category: Medical Plan: On chronic anticoagulation. (8) COPD (chronic obstructive pulmonary disease): Comment: This patient is well known to have chronic obstructive pulmonary disease, moder ately severe. He is staying stable with the current medical regimen , except for intermittent increase in cough and mucus production. 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 Although fruits are generally healthy they should be eaten in moderation as they are still high in sugar. Hemoglobin A1c goal of less than 7% (10) Moderate aortic stenosis: Comment: August 2019 1.5 cm sq [place] and cardiovascular As August 2021 1.1 cm2, March 2022 1.3 cm2 May 2023 1.18 cm squared Code(s): I35.0 - Nonrheumatic aortic (valve) stenosis Category: Medical Plan: Continue to monitor and continue to follow with Cardiology (11) Chronic kidney disease (CKD) stage G3b/A1, moderately decreased glomerular filtration rate (GFR) between 30-44 mL/min/1.73 square meter and albuminuria creatinine ratio less than 30 mg/g: Code(s): N18.32 - Chronic kidney disease, stage 3b Category: Medical Plan: Avoid kidney irritants such as NSAIDs and stay well hydrated. Plan This note was constructed using voice recognition software. While every effort has been made to ensure accuracy and route delivery service driver, still areas may have been included sometimes these areas may affect the content or meeting of the given symptoms. Total time spent caring for the patient today was 30 minutes. This includes time spent before the visit reviewing the chart, time spent during the visit, and time spent after the visit and documentation. Orders: Orders AMB Hemoglobin A1c 02/01/24 E11.65 - Type 2 diabetes mellitus with hyperglycemia UA CC w/rflx Micro + Cult 02/02/24 R35.89 - Other polyuria
[2024-02-01 12:49] VITALS: BP 110/68; PULSE 66; O2SAT 97; BMI 24.1
== END 2024-02-01 13:52 | disposition home or self-care (01) ==
PROVIDERS: PCP Internal Medicine
DX: Z00.00 Encounter for general adult medical examination without abnormal findings (principal); E11.42 Type 2 diabetes mellitus with diabetic polyneuropathy; I73.9 Peripheral vascular disease, unspecified; I82.409 Acute embolism and thrombosis of unspecified deep veins of unspecified lower extremity; J43.9 Emphysema, unspecified; E11.65 Type 2 diabetes mellitus with hyperglycemia; N18.32 Chronic kidney disease, stage 3b; I12.9 Hypertensive chronic kidney disease with stage 1 through stage 4 chronic kidney disease, or unspecified chronic kidney disease; G89.4 Chronic pain syndrome; E78.5 Hyperlipidemia, unspecified; I35.0 Nonrheumatic aortic (valve) stenosis

== ENCOUNTER → 2024-02-01 12:47 | Outpatient (BNVA) | payer MEDICARE, MEDICAID, SELFPAY | PROVIDERS: PCP Internal Medicine | DX: Z00.00 Encounter for general adult medical examination without abnormal findings (principal); E11.65 Type 2 diabetes mellitus with hyperglycemia; G89.4 Chronic pain syndrome; E11.42 Type 2 diabetes mellitus with diabetic polyneuropathy; I73.9 Peripheral vascular disease, unspecified; E78.5 Hyperlipidemia, unspecified; J43.9 Emphysema, unspecified; I12.9 Hypertensive chronic kidney disease with stage 1 through stage 4 chronic kidney disease, or unspecified chronic kidney disease; E11.22 Type 2 diabetes mellitus with diabetic chronic kidney disease; N18.32 Chronic kidney disease, stage 3b | CPT/HCPCS: 83036; 99397 ==

== ENCOUNTER 2024-02-02 08:49 | Outpatient (REF) | payer MEDICARE, MEDICAID, SELFPAY ==
[2024-02-02 09:07] LABS: MANUAL DIFF FLAG NO
[2024-02-02 09:52] LABS: Basophils Percent Auto 0.2 % (0-2); Eosinophils Absolute Auto 0.4 X10*3/uL (0.0-0.4); Eosinophils Percent Auto 6.5 % (0-4); Hematocrit 37.8 % (42.0-52.0); Hemoglobin 12.2 g/dl (14.0-18.0); Imm Gran Abs Auto 0.02 X10*3/uL (0.00-0.03); Imm Gran Pct Auto 0.3 % (0.0-0.4); Immature Retic Fraction 7.6 % (2.3-13.4); Lymphocytes Absolute Auto 1.4 X10*3/uL (1.2-4.9); Lymphocytes Percent Auto 23.9 % (20-40); Mean Corpuscular HGB Conc 32.3 g/dl (31.0-36.0); Mean Corpuscular Hemoglobin 28.9 pg (27.0-33.0); Mean Corpuscular Volume 89.6 fL (80.0-98.0); Mean Platelet Volume 12.5 fL (9.4-12.4); Monocytes Absolute Auto 0.6 X10*3/uL (0.1-1.2); Monocytes Percent Auto 11.2 % (2-11); Neutrophils Absolute Auto 3.3 x10*3/uL (2.0-8.3); Neutrophils Percent Auto 57.9 % (45-73); Platelet Count 144 X10*3/uL (160-400); Red Blood Count 4.22 X10*6/uL (4.60-5.80); Red Cell Distribution Width 14.3 % (11.0-16.0); Retic HGB Equivalent 31.9 pg (30.0-35.0); Reticulocyte Percent 0.9 % (0.5-1.8); Reticulocytes Absolute 0.038 X10*6/uL (0.026-0.095); White Blood Count 5.7 X10*3/uL (4.8-10.8)
[2024-02-02 10:05] LABS: Estimated Average Glucose 128 mg/dL; Hemoglobin A1C 134.8499 umol/L; Hemoglobin A1c % 6.1 % (<6.0); Total Hemoglobin (HGBA1C) 3108.0728 umol/L
[2024-02-02 10:28] LABS: Alanine Aminotransferase 10 U/L (0-40); Albumin Level 4.3 g/dL (3.5-5.0); Alkaline Phosphatase 82 U/L (39-117); Anion Gap 11 (12-20); Aspartate Amino Transferase 21 U/L (5-37); Bilirubin Total 0.9 mg/dL (0.0-1.0); Blood Urea Nitrogen 17 mg/dL (9-16); Calcium 9.8 mg/dL (8.4-10.2); Carbon Dioxide 25 mmol/L (22-29); Chloride 108 mmol/L (96-108); Cholesterol 114 mg/dL (<200); Estimated Glomerular Filt Rate 56; Glucose Random 121 mg/dL (60-115); HDL Cholesterol 48 mg/dL (>40); Iron 80 mcg/dL (45-160); LDL Cholesterol Calculated 48 mg/dL (<100); Percent Iron Saturation 45 % (15-50); Potassium 4.4 mmol/L (3.3-5.1); Sodium 140 mmol/L (135-145); Total Iron Binding Capacity 177 mcg/dL (228-428); Total Protein 6.8 g/dL (6.5-8.0); Triglycerides 90 mg/dL (<150); Unsaturated Iron Binding 97 ug/dL
[2024-02-02 10:36] LABS: Appearance Urine Clear; Color Urine Yellow; Glucose Urine UA Negative (Negative); Leukocyte Esterase Urine Negative (Negative); Nitrite Urine Negative (Negative); Urine Blood Negative (Negative); Urine Ketones Negative (Negative); Urine Protein Negative (Neg-Trace)
[2024-02-02 10:48] LABS: Ferritin 969 ng/mL (20-250); Free T4 (Free Thyroxine) 1.13 ng/dL (0.71-1.85); Thyroid Stimulating Hormone 1.29 uIU/mL (0.32-4.0)
[2024-02-02 10:51] LABS: Creatinine Urine 45.61 mg/dL; Microalbum/Creatinine Ratio Ur 61.3 ug/mg cr (<30)
[2024-02-02 11:04] LABS: Vitamin B12 1508 pg/mL (200-900)
== END 2024-02-02 08:50 | disposition home or self-care (01) ==
LOC: HO.LAB 08:49
PROVIDERS: PCP Internal Medicine; Visit Provider Internal Medicine
DX: E11.65 Type 2 diabetes mellitus with hyperglycemia (principal); E78.00 Pure hypercholesterolemia, unspecified; R35.89 Other polyuria
CPT/HCPCS: 36415; 80053; 80061; 81003; 82043; 82570; 82607; 82728; 82746; 83036; 83540; 84439; 84443; 85025; 85045

== ENCOUNTER 2024-02-03 12:47 | Outpatient (AMB) | payer MEDICARE, MEDICAID, SELFPAY ==
--- NOTE | 2024-02-03 12:58 | A.OFFVIS_ITS ---
Vital Signs 02/03/24 13:07 Height 5 ft 10 in Weight 163 lb 6 oz BMI 23.4 BP 130/66 Blood Pressure Location Lt brachial Position Sitting Respiration 16 Pulse 67 Pulse Source Pulse Oximeter Pulse Oximetry (%) 96 Oxygen Delivery Method Room Air Intake Visit Reasons: Pill Count Intake Note: Patient comes in for pill count. Reports pain 9/10. Allergies doxycycline Allergy (Intermediate, Verified 02/03/24 13:08) Nausea and Vomiting HPI Comments Details: Bao presents to the office today, accompanied by his son, for follow up chronic pain and chronic opioid therapy management. Patient is prescribed oxyocodone-acetaminophen 5-325mg take 1 tablet three times a day. He reports severe pain today in bilateral feet 9/10. He reports that his pain is secondary to peripheral vascular disease. He had bypass done for bilateral lower extremities. I offered patient to improve his comfort to go for a trial of spinal cord stimulator however patient adamantly refused. He stated that he does not want the surgery. Patient arrived today with the expectation of having 60 pills, he presented 60 pills which were counted in the presence of two staff members and returned to the patient in the original prescription bottle. This demonstrates responsible attitude toward patient's opioid medications. Pain today is reported today as 7/10 and last dose of pain medication was taken at 09:00 this morning. Patient denies side effects including constipation, somnolence, weakness, dizziness, nausea or vomiting. Previously: He was under care of Dr. Dunn.? Attempts to convert him to buprenorphine in the form of Belbuca or buprenorphine patch failed. He suffers from postlaminectomy syndrome, he suffers from vascular insufficiency of bilateral lower extremities.? He has negative about neuromodulation. 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, without long-term current use of insulin Effusion of right knee joint Contusion of right knee Hemarthrosis involving knee joint Left shoulder pain Appetite impaired Hearing difficulty Weight loss Cough Non-rheumatic aortic stenosis Chronic pain syndrome Postlaminectomy syndrome Diabetic polyneuropathy Gastric carcinoma Peripheral vascular disease Pneumonia Hyperlipidemia LDL goal <70 COPD (chronic obstructive pulmonary disease) Type 2 diabetes mellitus with hyperglycemia Vitamin B12 deficiency Bronchiectasis Moderate aortic stenosis Compression fracture of L1 lumbar vertebra Recurrent deep vein thrombosis (DVT) Peripheral vascular disease History of gastric cancer BPH (benign prostatic hyperplasia) COPD (chronic obstructive pulmonary disease) Joint pain Surgical History History of colonoscopy Amputation of toe of left foot History of gastrectomy Family History Father Diabetes Cancer Mother Diabetes Brother Lung cancer Social History Household Members: None Household Members Other:: lives alone son checks by daily Housing: Apartment Are you a primary health care law specialist to a significant other at home: No Do you presently have visiting nurse or other home services: No Alcohol intake: former Year quit: 1969 Patient Tobacco Use Status: Never used Tobacco e-Cigarette/Vaping Use: Never Used Second Hand Smoke Exposure: No service: No Current occupational status: retired Cognitive needs: Yes (walker/power chair) Hearing needs: No Vision needs: Yes (reading) Review of Systems Const All systems reviewed & are unremarkable except as noted in HPI and below Physical Exam Vital Signs: Last Vital Signs Pulse 67 02/03/24 13:07 Resp 16 02/03/24 13:07 BP 130/66 02/03/24 13:07 Pulse Ox 96 02/03/24 13:07 Oxygen Delivery Method Room Air 02/03/24 13:07 BMI result Body Mass Index 23.4 General: awake, alert, oriented. Answers questions appropriately. Fully engaged in examination. Skin: warm, dry, intact HEENT: Normocephalic. Hearing intact. Cardiac: External chest normal in appearance. Respiratory: No cough, audible wheezing or stridor. Abdomen: without gross distension. Soft, nontender. No guarding MS: No obvious swelling or deformities. Able to transition from sit to stand unassisted. Ambulates with bilaterally normal heel strike and toe off extemities: Significant discoloration on bilateral lower extremities inner side delineating vascular insufficiency. Neurological: Oriented to person, place, time and situation. Thought process intact. Utilizes a walking stick. Psychiatric: Appropriate mood and affect. Good judgment and insight. Assessment & Plan Assessment & Plan (1) Peripheral vascular disease: Comment: Left lower extremity vascular occluded on Left dorsalis pedis significant disease January 2021 Code(s): I73.9 - Peripheral vascular disease, unspecified Category: Medical (2) Controlled type 2 diabetes mellitus with diabetic nephropathy, without long- term current use of insulin: Code(s): E11.21 - Type 2 diabetes mellitus with diabetic nephropathy Category: Medical (3) Diabetic polyneuropathy: Code(s): E11.42 - Type 2 diabetes mellitus with diabetic polyneuropathy Category: Medical (4) Postlaminectomy syndrome: Code(s): M96.1 - Postlaminectomy syndrome, not elsewhere classified Category: Medical (5) Chronic pain syndrome: Code(s): G89.4 - Chronic pain syndrome Category: Medical Plan Masspat was reviewed and without concerns. No obvious signs of diversion, abuse or misuse of the opioid medications. Will send in prescription for oxycodone/acetaminophen 5-325 mg BID with an adva nced date of 01/25/2024 Patient to follow-up in the office in 1 month, sooner if needed. All questions and concerns have been answered and patient agrees with the plan. Medications: Refilled oxycodone-acetaminophen 5-325 mg Partial Fill only upon patient request. 1 tab PO Q8H PRN 90 tabs 0RF pain 30 days M47.816 - Spondylosis without myelopathy or radiculopathy, lumbar region Coding Level of Care Code Est Pt Level 3 (43847) Diagnoses Peripheral vascular disease I73.9 Controlled type 2 diabetes mellitus with diabetic nephropathy, without long-term current use of insulin E11.21 Diabetic polyneuropathy E11.42 Postlaminectomy syndrome M96.1 Chronic pain syndrome G89.4
[2024-02-03 13:07] VITALS: BP 130/66; PULSE 67; RESP 16; O2SAT 96; BMI 23.4
== END 2024-02-03 13:32 | disposition home or self-care (01) ==
PROVIDERS: PCP Internal Medicine; Visit Provider Anesthesiology
DX: I73.9 Peripheral vascular disease, unspecified (principal); E11.21 Type 2 diabetes mellitus with diabetic nephropathy; E11.42 Type 2 diabetes mellitus with diabetic polyneuropathy; M96.1 Postlaminectomy syndrome, not elsewhere classified; G89.4 Chronic pain syndrome
CPT/HCPCS: 99213

== ENCOUNTER → 2024-02-03 12:47 | Outpatient (BNVA) | payer MEDICARE, MEDICAID, SELFPAY | PROVIDERS: PCP Internal Medicine; Visit Provider Anesthesiology | DX: Z51.81 Encounter for therapeutic drug level monitoring (principal); M96.1 Postlaminectomy syndrome, not elsewhere classified; I73.9 Peripheral vascular disease, unspecified; E11.21 Type 2 diabetes mellitus with diabetic nephropathy; E11.42 Type 2 diabetes mellitus with diabetic polyneuropathy; G89.4 Chronic pain syndrome | CPT/HCPCS: 99212 ==

== ENCOUNTER 2024-02-08 13:09 | Outpatient (AMB) | payer MEDICARE, MEDICAID, SELFPAY ==
[2024-02-08 13:16] LABS: Prothrombin Time Whole Bld POC 69.7 sec (11.1-13.5); ~PT, ~INR - Anti Coag Clinic 5.8 (0.9-1.1)
--- NOTE | 2024-02-08 13:29 | MHC.OFFVISCO ---
Intake Intake Visit Reasons: Anticoagulation Allergies doxycycline Allergy (Intermediate, Verified 02/08/24 13:10) Nausea and Vomiting Medication List - Last Reconciled 02/08/24 by Rakel Ngo RN amlodipine 10 mg PO DAILY ascorbic acid (vitamin C) 1 g PO DAILY atorvastatin 40 mg PO DAILY blood pressure monitor (Blood Pressure Kit) As directed blood sugar diagnostic (Wild NeedleTouch Verio test strips) one time daily blood-glucose meter (Broadcast Pixuch Verio Meter) To check blood glucose once daily budesonide-formoterol 160-4.5 mcg/actuation (Symbicort) 2 puffs PO BID cholecalciferol (vitamin D3) 25 mcg PO DAILY cilostazol 100 mg PO BID cyanocobalamin (vitamin B-12) (Vitamin B-12) 250 mcg PO DAILY fluticasone propionate 50 mcg/actuation 2 sprays intranasal DAILY gabapentin 300 mg PO DAILY 90 days [garlic clove 1 dose PO NEEDED] ipratropium-albuterol 0.5 mg-3 mg(2.5 mg base)/3 mL 3 mL inhalation Q6H lancets (Broadcast Pixuch Delica Plus Lancet) To test bg daily lancets As directed metformin 500 mg PO DAILY metoprolol succinate ER 25 mg PO DAILY naloxone 4 mg/actuation (Narcan) 4 mg intranasal Q2M 1 day oxycodone-acetaminophen 5-325 mg 1 tab PO Q8H PRN 30 days Ventolin HFA 90 mcg/actuation (albuterol sulfate) 2 puffs inhalation Q4-6H PRN NS walker (Ultra-Light Rollator misc) As directed, ambulate at all times with walker warfarin 5 mg See Protocol PO DAILY warfarin 2.5 mg See Protocol PO DAILY 90 days Nursing Note INR 5.8 out of therapeutic range- Son not with pt today because he is not feeling well, refused lab today Medications and supplements reviewed Patient status: ate a lot of beef onion and garlic and not usual greens Medications or supplements: states no changes Diet: goo appetite Denies any signs and symptoms of bleeding or clotting or unusual bruising Bleeding, bruising, clotting discussed Nutritional guidance given: avoid foods that will raise your INR - eat cooked greens today Dose: no wafarin x 2 days then 2.5mg 5mg and recheck thursday F/U INR Date : 02/12/24 Go to ER for any unusual bleeding or bruising spoke with son also regardign risks Patient verbalizing understanding of instructions given. attempt to call PCP with critical result no answer at this time will send this msg Anti-Coag Initial Assessment Social Hx Patient Tobacco Use Status: Never used Tobacco alcohol intake: former Alcohol intake frequency: does not drink Coding Level of Care Code Est Patient Level 1 Diagnoses Current use of anticoagulant therapy Z79.01 Assessment & Plan Assessment & Plan (1) Current use of anticoagulant therapy: Code(s): Z79.01 - rat exterminator (current) 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
== END 2024-02-08 13:35 | disposition home or self-care (01) ==
LOC: HO.ACS 13:09
PROVIDERS: PCP Internal Medicine; Visit Provider Internal Medicine
DX: Z79.01 Long term (current) use of anticoagulants (principal)

== ENCOUNTER → 2024-02-08 13:09 | Outpatient (BNVA) | payer MEDICARE, MEDICAID, SELFPAY | PROVIDERS: PCP Internal Medicine; Visit Provider Internal Medicine | DX: I82.503 Chronic embolism and thrombosis of unspecified deep veins of lower extremity, bilateral (principal); Z79.01 Long term (current) use of anticoagulants; Z51.81 Encounter for therapeutic drug level monitoring | CPT/HCPCS: 85610; 99211 ==

== ENCOUNTER 2024-02-11 13:02 | Outpatient (AMB) | payer MEDICARE, MEDICAID, SELFPAY ==
[2024-02-11 13:09] LABS: Prothrombin Time Whole Bld POC 18.4 sec (11.1-13.5); ~PT, ~INR - Anti Coag Clinic 1.5 (0.9-1.1)
--- NOTE | 2024-02-11 13:21 | MHC.OFFVISCO ---
Intake Intake Visit Reasons: Anticoagulation Allergies doxycycline Allergy (Intermediate, Verified 02/11/24 13:05) Nausea and Vomiting Nursing Note INR 1.5?out of therapeutic range of 2-3 Medications and supplements reviewed Patient status: no changes Medications or supplements: no changes Diet: pt states he had a lot of spinach because last INR 3 days ago was 5.8 Denies any signs and symptoms of bleeding or clotting or unusual bruising Bleeding, bruising, clotting discussed Nutritional guidance given: no spinach for 2 days. To have a serving of reds today and tomorrow. Dose: increase todays dose to 7.5mg then 5mg X 4 days and 2.5mg X 3 days F/U INR Date : 1 week Patient verbalizing understanding of instructions given. Anti-Coag Initial Assessment Social Hx Patient Tobacco Use Status: Never used Tobacco alcohol intake: former Alcohol intake frequency: does not drink Coding Level of Care Code Est Patient Level 1 Diagnoses Current use of anticoagulant therapy Z79.01 Assessment & Plan Assessment & Plan (1) Current use of anticoagulant therapy: Code(s): Z79.01 - residential (current) 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
--- OUTSIDE RECORDS SUMMARY | 2024-02-17 02:17 | XMS_ITS | Continuity of Care Document ---
Author Organization [facility] Address [address] [place] [address]- Care Team Providers Care Electronic Warfare Technician Name Role Phone Kee Barrientos MD Primary Care Physician [phone] Encounter [facility] [place] Date(s): 01/29/24 - 02/05/24 [facility] [address] [place], [place] [address] Attending Physician: Natalia Hemphill NP Admitting Physician: Natalia Hemphill NP Referring Physician: Kee Barrientos MD Encounter Type: Office Visit Allergies, Adverse Reactions, Alerts No Known Allergies Medications acetaminophen-oxycodone 325 mg-5 mg oral tablet 1 tablet, By Mouth, Every 6 hours, 0 Refills, Maintenance, 12/30/13 9:40:36 AM EDT Start Date: 12/30/13 Status: Ordered Repeat number: 1 albuterol-ipratropium 3 mg-0.5 mg/3 ml inhalation solution 3 mL, Inhalation, 4 times a day, 0 Refills, Maintenance, 12/30/13 10:19:48 AM EDT Start Date: 12/30/13 Status: Ordered Repeat number: 1 atorvastatin 40 mg oral tablet 1 tablet = 40 mg, By Mouth, Daily, # 30 tablet, 0 Refills, Maintenance, 12/30/13 10:15:16 AM EDT, Tablet Start Date: 12/30/13 Status: Ordered Quantity: 30.0 Unit: tablet Repeat number: 1 Cilostazol = 100 mg, By Mouth, Daily, 0 Refills, Maintenance, 12/30/13 10:13:18 AM EDT Start Date: 12/30/13 Status: Ordered Repeat number: 1 Compression Stockings See Instructions, # 2 pair, Refills 2, Tot. Refills 2, Maintenance, surgical, calf length 20-30 mm Hg Dx: venous insufficiency, 03/19/16 3:24:43 PM EST, Compound Start Date: 03/19/16 Status: Ordered Quantity: 2.0 Unit: pair Repeat number: 3 ferrous sulfate 325 mg oral tablet 0.5 tablet = 162.5 mg, By Mouth, Daily, 0 Refills, Maintenance, 09/22/16 2:00:09 PM EDT Start Date: 09/22/16 Status: Ordered Repeat number: 1 Fluticasone Nasal Daily, 0 Refills, Maintenance, 03/19/16 3:50:15 PM EST Start Date: 03/19/16 Status: Ordered Repeat number: 1 lisinopril 5 mg oral tablet 1 tablet = 5 mg, By Mouth, Daily, # 30 tablet, 0 Refills, Maintenance, 12/30/13 10:15:29 AM EDT, Tablet Start Date: 12/30/13 Status: Ordered Quantity: 30.0 Unit: tablet Repeat number: 1 metFORMIN 500 mg oral tablet 0 Refills, Maintenance, 01/29/24 4:26:00 PM EST, Partial fill upon patient request if the prescription is for a schedule II opioid drug. Start Date: 01/29/24 Status: Ordered Repeat number: 1 ProAir HFA See Instructions, 2 puffs Inhalation 4 times a day, 0 Refills, Maintenance, 12/30/13 10:17:29 AM EDT Start Date: 12/30/13 Status: Ordered Repeat number: 1 Symbicort 160mcg-4.5mcg Inhaler 2, puffs, Inhalation, 2 times a day, Maintenance, 12/30/13 10:18:33 AM EDT Start Date: 12/30/13 Status: Ordered Repeat number: 1 Vitamin B-12 Tablet Maintenance, 12/30/13 10:17:10 AM EDT Start Date: 12/30/13 Status: Ordered Repeat number: 1 warfarin 3 mg oral tablet 1 tablet = 3 mg, By Mouth, Every Thursday and , # 30 tablet, 0 Refills, Maintenance, 12/30/13 10:00:43 AM EDT, Tablet Start Date: 12/30/13 Status: Ordered Quantity: 30.0 Unit: tablet Repeat number: 1 warfarin 3 mg oral tablet 1 tablet = 3 mg, By Mouth, Every Thursday, # 30 tablet, 0 Refills, Maintenance, 12/30/13 10:01:43 AM EDT, Tablet Start Date: 12/30/13 Status: Ordered Quantity: 30.0 Unit: tablet Repeat number: 1 warfarin 6 mg oral tablet 1 tablet = 6 mg, By Mouth, Every Thursday, # 30 tablet, 0 Refills, Maintenance, 12/30/13 10:09:18 AM EDT, Tablet Start Date: 12/30/13 Status: Ordered Quantity: 30.0 Unit: tablet Repeat number: 1 warfarin 6 mg oral tablet 1 tablet = 6 mg, By Mouth, Every Thursday, # 30 tablet, 0 Refills, Maintenance, 12/30/13 10:10:07 AM EDT, Tablet Start Date: 12/30/13 Status: Ordered Quantity: 30.0 Unit: tablet Repeat number: 1 Vital Signs Most recent to oldest [Reference Range]: 1 Height 178 cm (01/29/24 4:26 PM) Weight 74.84 kg (01/29/24 4:26 PM) Oxygen Saturation [94-100 %] 95 % (01/29/24 4:26 PM) Body Mass Index [18.5-24.99 kg/m2] 23.62 kg/m2 (01/29/24 4:26 PM) Blood Pressure [90-138/55-84 mm Hg] 128/ 68mm Hg (01/29/24 4:26 PM) Mode of Delivery (Oxygen) Room air (01/29/24 4:26 PM) Blood pressure sites Arm, left (01/29/24 4:26 PM) Weight Obtained Via Patient/family state d (01/29/24 4:26 PM) Social History Social History Type Response Smoking Status Former smoker entered on: 01/02/14 Sex Sex Representation Male (finding) Note * Natalia Russell: PERFORM Event Display: Patient Education/Instruction Authored Date: [id number] Ambulatory Adult Visit Summary [address] [address] Name: RUTH GALAVIZ : 1940?? Visit: 01/29/2024 15:50?? Ambulatory Visit Instructions ?? Your Care Team Primary Care Provider Kee Barrientos MD? This Visit Provider Natalia Hemphill NP Your Diagnosis PAD (peripheral artery disease) Vitals Signs Systolic Blood Pressure: 128 mm Hg Height: 178 cm Diastolic Blood Pressure: 68 mm Hg Weight: 74.84 kg Oxygen Saturation: 95 % Body Mass Index: 23.62 kg/m2 ?? Body surface area: 1.92 Medications The list below reflects the information in our records and provided by you today along with any changes made during this visit. Please continue your medications until treatment is completed or stopped by your provider. If this is different from the information you have or there are other questions,please contact the prescribing provider. What How Much When Instructions Unchanged Albuterol (ProAir HFA) See instructions 2 puffs Inhalation 4 times a day ?? Unchanged Albuterol/ Ipratropium (albuterol-ipratropium 3 mg-0.5 mg/ 3 ml inhalation solution) 3 Milliliter Inhalation 4 times a day Unchanged Atorvastatin (atorvastatin 40 mg oral tablet) 1 tab(s) Oral Daily Unchanged Budesonide-Formoterol (Symbicort 160mcg-4.5mcg Inhaler) 2 puff(s) Inhalation Twice a day Unchanged Cilostazol 100 Milligram Oral Daily Unchanged Cyanocobalamin (Vitamin B-12 Tablet) Unchanged Durable Medical Equipment (Compression Stockings) See instructions surgical, calf length 20-30 mm Hg Dx: venous insufficiency ?? Unchanged Ferrous Sulfate (ferrous sulfate 325 mg oral tablet) 0.5 tab(s) Oral Daily Unchanged Fluticasone Nasal Daily Unchanged Lisinopril (lisinopril 5 mg oral tablet) 1 tab(s) Oral Daily Unchanged Metformin (metFORMIN 500 mg oral tablet) Unchanged Oxycodone / Acetaminophen (acetaminophen-oxycodone 325 mg-5 mg oral tablet) 1 tab(s) Oral Every 6 hours Unchanged Warfarin (warfarin 3 mg oral tablet) 1 tab(s) Oral Every Thursday and Unchanged Warfarin (warfarin 3 mg oral tablet) 1 tab(s) Oral Every Thursday Unchanged Warfarin (warfarin 6 mg oral tablet) 1 tab(s) Oral Every Thursday Unchanged Warfarin (warfarin 6 mg oral tablet) 1 tab(s) Oral Every Thursday Medications and Immunizations Administered Medications Given During Visit No medications given during this visit.?? Allergies (NKA means No Known Allergies) NKA Common Emergency Awareness Tips IS IT A STROKE? Act FAST and Check for these signs: FACE Does the face look uneven? ARM Does one arm drift down? SPEECH Does their speech sound strange? TIME Call at any sign of stroke ?? Heart Attack Signs Chest discomfort: Most heart attacks involve discomfort in the center of the chest and lasts more than a few minutes, or goes away and comes back. It can feel like uncomfortable pressure, squeezing, fullness or pain. Discomfort in upper body: Symptoms can include pain or discomfort in one or both arms, back, neck, jaw or stomach. Shortness of breath: With or without discomfort. Other signs: Breaking out in a cold sweat, nausea, or lightheaded. Remember, MINUTES DO MATTER. If you experience any of these heart attack warning signs, call to get immediate medical attention! ?? Smoking can increase your chances of developing chronic health problems and can cause harmful effects to other family members in your house. If you smoke, you are strongly encouraged to quit. Please call [facility] at [phone] or [phone]) or log in to [email or web address] for referrals to smoking cessation programs. ?? The National Suicide Prevention Hotline is available 29/09 if you or someone you know needs to find a reason to keep living. By calling 4-821-835-Platial (3694) you'll be connected to a skilled, trained counselor at a crisis center in your area. [facility] Portal You can view and manage your care through the patient portal or by using a health care tomi of your choosing. [facility] is a website that allows you to securely view your medical information including your hospital discharge summary, office visit summaries, medications and follow-up visits. You can also request appointments, renew medications, and request access to your medical information using a health care tomi of your choosing, or just ask a question. You can enroll at [email or web address] or register during your next office visit. [facility], in keeping with [facility] guidance, no longer requires face masks for staff, patientsor visitors in most situations. Similiar to time spent indoors at other locations, there is the chance that you were exposed to repiratory viruses during your time with us (such as flu or COVID-19). If you develop symptoms concerning for a viral respiratory infection, please seek testing (and treatment if indicated) from your medical provider or home test kit. ?? Disclaimer: The information provided is of a general nature and is intended to be used in conjunction with the recommendations and advice of your health care practitioner. Every effort has been made to ensure that the information provided is accurate and complete at the time it is provided to you however, as your needs change, or, as new information becomes available, different or additional instructions may be required. ?? If you have questions, please consult with your primary care provider or pharmacist, as appropriate. This information is not intended to serve as substitution for assessment and evaluation by a qualified health care provider. If you do not have a primary care provider, you may find a [facility] provider by calling [facility] at [phone]. Patient Care team information Care Team Personnel Name: Kee Barrientos MD Position: Reference Physician Member Role: PCP Address: [address] [place] [address] Telecom: Care Team Related Persons Name: RUTH GALAVIZ Insurance Providers Guarantor name: RUTH GALAVIZ Health Plan Information #: 1 Payer: NA Member Number: [id number] Policy Number: NA Group Number: [id number] Health Plan Information #: 2 Payer: [facility] Member Number: [id number] Policy Number: GRISELDA Group Number: NA
--- OUTSIDE RECORDS SUMMARY | 2024-02-17 02:17 | XMS_ITS | Continuity of Care Document ---
Author Organization [facility] Address [address] [place] [address]- Care Team Providers Care Hereditary Cancer Program Coordinator Name Role Phone Kee Barrientos MD Primary Care Physician [phone] Encounter [facility] [place] Date(s): 01/01/24 - 01/31/24 [facility] [address] [place], [place] [address] Attending Physician: Rufus Bourgeois Admitting Physician: Rufus Bourgeois Referring Physician: Admtr ArCurry Encounter Type: Triage Allergies, Adverse Reactions, Alerts No Known Allergies [...] Quantity: 30.0 Unit: tablet Repeat number: 1 Social History Social History Type Response Smoking Status Former smoker entered on: 01/02/14 Sex Sex Representation Male (finding) Patient Care team information Care Team Personnel Name: Kee Barrientos MD Position: Reference Physician Member Role: PCP Address: [address] [place] [address] Telecom: Care Team Related Persons Name: RUTH GALAVIZ Insurance Providers Guarantor name: RUTH GALAVIZ Health Plan Information #: 1 Payer: NA Member Number: NA Policy Number: NA Group Number: NA Health Plan Information #: 2 Payer: [facility] Member Number: NA Policy Number: NA Group Number: NA
--- OUTSIDE RECORDS SUMMARY | 2024-02-17 02:17 | XMS_ITS | Continuity of Care Document ---
Author Organization [facility] Address [address] [place] [address]- Care Team Providers Care Internet Marketing Intern Name Role Phone Kee Barrientos MD Primary Care Physician [phone] Encounter [facility] [place] Date(s): 10/09/23 - 02/06/24 [facility] [address] [place] [address]- Attending Physician: Natalia Hemphill NP Admitting Physician: Natalia Hemphill NP Referring Physician: Kee Barrientos MD Encounter Type: Pre Office Visit Allergies, Adverse Reactions, Alerts No [...] Position: Reference Physician Member Role: PCP Address: [address] [place] [address] Telecom: Care Team Related Persons Name: RUTH GALAVIZ Insurance Providers Guarantor name: RUTH GALAVIZ Health Plan Information #: 1 Payer: [employer] Member Number: [id number] Policy Number: NA Group Number: [id number] Health Plan Information #: 2 Payer: [facility] Member Number: [id number] Policy Number: NA Group Number: NA Health Plan Information #: 3 Payer: NA Member Number: NA Policy Number: NA Group Number: NA
== END 2024-02-11 14:15 | disposition home or self-care (01) ==
LOC: HO.ACS 13:02
PROVIDERS: PCP Internal Medicine; Visit Provider Internal Medicine
DX: Z79.01 Long term (current) use of anticoagulants (principal)

== ENCOUNTER → 2024-02-11 13:02 | Outpatient (BNVA) | payer MEDICARE, MEDICAID, SELFPAY | PROVIDERS: PCP Internal Medicine; Visit Provider Internal Medicine | DX: I82.503 Chronic embolism and thrombosis of unspecified deep veins of lower extremity, bilateral (principal); Z79.01 Long term (current) use of anticoagulants; Z51.81 Encounter for therapeutic drug level monitoring | CPT/HCPCS: 85610; 99211 ==

== ENCOUNTER 2024-02-17 13:14 | Outpatient (AMB) | payer MEDICARE, MEDICAID, SELFPAY ==
--- NOTE | 2024-02-17 13:34 | MHC.OFFVISCO ---
Intake Intake Visit Reasons: Anticoagulation Allergies doxycycline Allergy (Intermediate, Verified 02/17/24 13:29) Nausea and Vomiting Medication List - Last Reconciled 02/17/24 by Francheska Chung RN amlodipine 10 mg PO DAILY ascorbic acid (vitamin C) 1 g PO DAILY atorvastatin 40 mg PO DAILY blood pressure monitor (Blood Pressure Kit) As directed blood sugar diagnostic (WhereNetTouch Verio test strips) one time daily blood-glucose meter (Familyticuch Verio Meter) To check blood glucose once daily budesonide-formoterol 160-4.5 mcg/actuation (Symbicort) 2 puffs PO BID cholecalciferol (vitamin D3) 25 mcg PO DAILY cilostazol 100 mg PO BID cyanocobalamin (vitamin B-12) (Vitamin B-12) 250 mcg PO DAILY fluticasone propionate 50 mcg/actuation 2 sprays intranasal DAILY gabapentin 300 mg PO DAILY 90 days [garlic clove 1 dose PO NEEDED] ipratropium-albuterol 0.5 mg-3 mg(2.5 mg base)/3 mL 3 mL inhalation Q6H lancets (Familyticuch Delica Plus Lancet) To test bg daily lancets As directed metformin 500 mg PO DAILY metoprolol succinate ER 25 mg PO DAILY naloxone 4 mg/actuation (Narcan) 4 mg intranasal Q2M 1 day oxycodone-acetaminophen 5-325 mg 1 tab PO Q8H PRN 30 days Ventolin HFA 90 mcg/actuation (albuterol sulfate) 2 puffs inhalation Q4-6H PRN NS walker (Ultra-Light Rollator misc) As directed, ambulate at all times with walker warfarin 5 mg See Protocol PO DAILY warfarin 2.5 mg See Protocol PO DAILY 90 days Nursing Note INR 3.2-?? out of therapeutic range 2-3 Medications and supplements reviewed Patient status: pt with prev elev inr's Medications or supplements: no changes Diet: same Denies any signs and symptoms of bleeding or clotting or unusual bruising Bleeding, bruising, clotting discussed Nutritional guidance given: eat greens to lower, no reds to lower pt to increase ensure to one can daily which will help lower inr Dose: pt son followed original dosing 2.5mg x 2, 5mg x 5 F/U INR Date : 1 week?? Patient verbalizing understanding of instructions given. Anti-Coag Initial Assessment Social Hx Patient Tobacco Use Status: Never used Tobacco alcohol intake: former Alcohol intake frequency: does not drink Coding Level of Care Code Est Patient Level 1 Diagnoses Current use of anticoagulant therapy Z79.01 Assessment & Plan Assessment & Plan (1) Current use of anticoagulant therapy: Code(s): Z79.01 - senior living (current) 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
[2024-02-17 13:35] LABS: ~PT, ~INR - Anti Coag Clinic 3.2 (0.9-1.1)
== END 2024-02-17 13:48 | disposition home or self-care (01) ==
LOC: HO.ACS 13:14
PROVIDERS: PCP Internal Medicine; Visit Provider Internal Medicine
DX: Z79.01 Long term (current) use of anticoagulants (principal)

== ENCOUNTER → 2024-02-17 13:14 | Outpatient (BNVA) | payer MEDICARE, MEDICAID, SELFPAY | PROVIDERS: PCP Internal Medicine; Visit Provider Internal Medicine | DX: I82.503 Chronic embolism and thrombosis of unspecified deep veins of lower extremity, bilateral (principal); Z79.01 Long term (current) use of anticoagulants; Z51.81 Encounter for therapeutic drug level monitoring | CPT/HCPCS: 85610; 99211 ==

== ENCOUNTER 2024-02-23 13:07 | Outpatient (AMB) | payer MEDICARE, MEDICAID, SELFPAY ==
[2024-02-23 13:14] LABS: Prothrombin Time Whole Bld POC 49.6 sec (11.1-13.5); ~PT, ~INR - Anti Coag Clinic 4.1 (0.9-1.1)
--- NOTE | 2024-02-23 13:23 | MHC.OFFVISCO ---
Intake Intake Visit Reasons: Anticoagulation Allergies doxycycline Allergy (Intermediate, Verified 02/23/24 13:09) Nausea and Vomiting Medication List - Last Reconciled 02/23/24 by Fouzia Mcginnis, RN amlodipine 10 mg PO DAILY ascorbic acid (vitamin C) 1 g PO DAILY atorvastatin 40 mg PO DAILY blood pressure monitor (Blood Pressure Kit) As directed blood sugar diagnostic (Confluence Life SciencesTouch Verio test strips) one time daily blood-glucose meter (Linked Restaurant Groupuch Verio Meter) To check blood glucose once daily budesonide-formoterol 160-4.5 mcg/actuation (Symbicort) 2 puffs PO BID cholecalciferol (vitamin D3) 25 mcg PO DAILY cilostazol 100 mg PO BID cyanocobalamin (vitamin B-12) (Vitamin B-12) 250 mcg PO DAILY fluticasone propionate 50 mcg/actuation 2 sprays intranasal DAILY gabapentin 300 mg PO DAILY 90 days [garlic clove 1 dose PO NEEDED] ipratropium-albuterol 0.5 mg-3 mg(2.5 mg base)/3 mL 3 mL inhalation Q6H lancets (Linked Restaurant [employer] Delica Plus Lancet) To test bg daily lancets As directed metformin 500 mg PO DAILY metoprolol succinate ER 25 mg PO DAILY naloxone 4 mg/actuation (Narcan) 4 mg intranasal Q2M 1 day oxycodone-acetaminophen 5-325 mg 1 tab PO Q8H PRN 30 days Ventolin HFA 90 mcg/actuation (albuterol sulfate) 2 puffs inhalation Q4-6H PRN NS walker (Ultra-Light Rollator misc) As directed, ambulate at all times with walker warfarin 5 mg See Protocol PO DAILY warfarin 2.5 mg See Protocol PO DAILY 90 days Nursing Note INR 4.1?out of therapeutic range of 2-3 Medications and supplements reviewed Patient status: no changes Medications or supplements: no changes Diet: usual diet for pt but he states he hasn't been taking ensure Denies any signs and symptoms of bleeding or clotting or unusual bruising Bleeding, bruising, clotting discussed Nutritional guidance given: to have a serving of greens today Dose: hold today's dose of 5mg then resume usual dose of 5mg X 5 days and 2.5mg X 2 days (Wed and Sat) F/U INR Date : 1 week?? Patient verbalizing understanding of instructions given. Anti-Coag Initial Assessment Social Hx Patient Tobacco Use Status: Never used Tobacco alcohol intake: former Alcohol intake frequency: does not drink Coding Level of Care Code Est Patient Level 1 Diagnoses Current use of anticoagulant therapy Z79.01 Assessment & Plan Assessment & Plan (1) Current use of anticoagulant therapy: Code(s): Z79.01 - [facility] (current) 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
== END 2024-02-23 13:26 | disposition home or self-care (01) ==
LOC: HO.ACS 13:07
PROVIDERS: PCP Internal Medicine; Visit Provider Internal Medicine
DX: Z79.01 Long term (current) use of anticoagulants (principal)

== ENCOUNTER → 2024-02-23 13:07 | Outpatient (BNVA) | payer MEDICARE, MEDICAID, SELFPAY | PROVIDERS: PCP Internal Medicine; Visit Provider Internal Medicine | DX: I82.503 Chronic embolism and thrombosis of unspecified deep veins of lower extremity, bilateral (principal); Z79.01 Long term (current) use of anticoagulants; Z51.81 Encounter for therapeutic drug level monitoring | CPT/HCPCS: 85610; 99211 ==

== ENCOUNTER → 2024-02-29 12:57 | Outpatient (BNVA) | payer MEDICARE, MEDICAID, SELFPAY | PROVIDERS: PCP Internal Medicine; Visit Provider Anesthesiology | DX: I82.503 Chronic embolism and thrombosis of unspecified deep veins of lower extremity, bilateral (principal); Z79.01 Long term (current) use of anticoagulants; Z51.81 Encounter for therapeutic drug level monitoring; F11.20 Opioid dependence, uncomplicated | CPT/HCPCS: 85610; 99211 ==

== ENCOUNTER 2024-02-29 13:32 | Outpatient (AMB) | payer MEDICARE, MEDICAID, SELFPAY ==
--- NOTE | 2024-02-29 13:38 | MHC.OFFVISCO ---
Intake Intake Visit Reasons: Anticoagulation Allergies doxycycline Allergy (Intermediate, Verified 02/29/24 13:33) Nausea and Vomiting Medication List - Last Reconciled 02/29/24 by Francheska Chung RN amlodipine 10 mg PO DAILY ascorbic acid (vitamin C) 1 g PO DAILY atorvastatin 40 mg PO DAILY blood pressure monitor (Blood Pressure Kit) As directed blood sugar diagnostic (HypereightTouch Verio test strips) one time daily blood-glucose meter (Cyber-Rainuch Verio Meter) To check blood glucose once daily budesonide-formoterol 160-4.5 mcg/actuation (Symbicort) 2 puffs PO BID cholecalciferol (vitamin D3) 25 mcg PO DAILY cilostazol 100 mg PO BID cyanocobalamin (vitamin B-12) (Vitamin B-12) 250 mcg PO DAILY fluticasone propionate 50 mcg/actuation 2 sprays intranasal DAILY gabapentin 300 mg PO DAILY 90 days [garlic clove 1 dose PO NEEDED] ipratropium-albuterol 0.5 mg-3 mg(2.5 mg base)/3 mL 3 mL inhalation Q6H lancets ([employer]ber[employer]Rainuch Delica Plus Lancet) To test bg daily lancets As directed metformin 500 mg PO DAILY metoprolol succinate ER 25 mg PO DAILY naloxone 4 mg/actuation (Narcan) 4 mg intranasal Q2M 1 day oxycodone-acetaminophen 5-325 mg 1 tab PO Q8H PRN 30 days Ventolin HFA 90 mcg/actuation (albuterol sulfate) 2 puffs inhalation Q4-6H PRN NS walker (Ultra-Light Rollator misc) As directed, ambulate at all times with walker warfarin 5 mg See Protocol PO DAILY warfarin 2.5 mg See Protocol PO DAILY 90 days Nursing Note INR: 2.5- in therapeutic range of 2-3 Medications and supplements reviewed- no changes No changes in health, diet, medications, or supplements, Denies any signs and symptoms of bleeding or bruising or clotting. Bleeding, bruising, clotting discussed Nutritional guidance given Dose: 2.5mg x 2, 5mg x 5 F/U INR: 1 week- pt has labs on 03/07/24 Patient verbalizes understanding of instructions given Anti-Coag Initial Assessment Social Hx Patient Tobacco Use Status: Never used Tobacco alcohol intake: former Alcohol intake frequency: does not drink Coding Level of Care Code Est Patient Level 1 Diagnoses Current use of anticoagulant therapy Z79.01 Results AMB INR Fingerstick AMB INR Fingerstick 2.5 Last Edit by Francheska Chung RN on 02/29/24 13:40 interface delay Assessment & Plan Assessment & Plan (1) Current use of anticoagulant therapy: Code(s): Z79.01 - correction (current) 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
[2024-02-29 13:49] LABS: Prothrombin Time Whole Bld POC 30.4 sec (11.1-13.5); ~PT, ~INR - Anti Coag Clinic 2.5 (0.9-1.1)
== END 2024-02-29 13:48 | disposition home or self-care (01) ==
LOC: HO.ACS 13:32
PROVIDERS: PCP Internal Medicine; Visit Provider Internal Medicine
DX: Z79.01 Long term (current) use of anticoagulants (principal)

== ENCOUNTER 2024-03-07 08:40 | Outpatient (REF) | payer MEDICARE, MEDICAID, SELFPAY ==
[2024-03-07 09:36] LABS: Iron 62 mcg/dL (45-160); Percent Iron Saturation 36 % (15-50); Total Iron Binding Capacity 170 mcg/dL (228-428); Unsaturated Iron Binding 108 ug/dL
[2024-03-07 09:49] LABS: Ferritin 827 ng/mL (20-250)
== END 2024-03-07 08:41 | disposition home or self-care (01) ==
LOC: HO.LAB 08:40
PROVIDERS: PCP Internal Medicine; Visit Provider Internal Medicine
DX: D64.9 Anemia, unspecified (principal); Z79.01 Long term (current) use of anticoagulants
CPT/HCPCS: 36415; 82728; 83540; 85610; 99211

== ENCOUNTER 2024-03-07 09:34 | Outpatient (AMB) | payer MEDICARE, MEDICAID, SELFPAY ==
--- NOTE | 2024-03-07 09:41 | MHC.OFFVISCO ---
Intake Intake Visit Reasons: Anticoagulation Allergies doxycycline Allergy (Intermediate, Verified 03/07/24 09:37) Nausea and Vomiting Medication List - Last Reconciled 03/07/24 by Francheska Chung RN amlodipine 10 mg PO DAILY ascorbic acid (vitamin C) 1 g PO DAILY atorvastatin 40 mg PO DAILY blood pressure monitor (Blood Pressure Kit) As directed blood sugar diagnostic (JodangeTouch Verio test strips) one time daily blood-glucose meter (Login[employer]uch Verio Meter) To check blood glucose once daily budesonide-formoterol 160-4.5 mcg/actuation (Symbicort) 2 puffs PO BID cholecalciferol (vitamin D3) 25 mcg PO DAILY cilostazol 100 mg PO BID cyanocobalamin (vitamin B-12) (Vitamin B-12) 250 mcg PO DAILY fluticasone propionate 50 mcg/actuation 2 sprays intranasal DAILY gabapentin 300 mg PO DAILY 90 days [garlic clove 1 dose PO NEEDED] ipratropium-albuterol 0.5 mg-3 mg(2.5 mg base)/3 mL 3 mL inhalation Q6H lancets ([employer]uch Delica Plus Lancet) To test bg daily lancets As directed metformin 500 mg PO DAILY metoprolol succinate ER 25 mg PO DAILY naloxone 4 mg/actuation (Narcan) 4 mg intranasal Q2M 1 day oxycodone-acetaminophen 5-325 mg 1 tab PO Q8H PRN 30 days Ventolin HFA 90 mcg/actuation (albuterol sulfate) 2 puffs inhalation Q4-6H PRN NS walker (Ultra-Light Rollator misc) As directed, ambulate at all times with walker warfarin 5 mg See Protocol PO DAILY warfarin 2.5 mg See Protocol PO DAILY 90 days Nursing Note INR: 3.0- in therapeutic range of 2-3 Medications and supplements reviewed- no changes No changes in health, diet, medications, or supplements, Denies any signs and symptoms of bleeding or bruising or clotting. 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
[2024-03-07 09:43] LABS: Prothrombin Time Whole Bld POC 36.2 sec (11.1-13.5)
== END 2024-03-07 09:59 | disposition home or self-care (01) ==
LOC: HO.ACS 09:34
PROVIDERS: PCP Internal Medicine; Visit Provider Internal Medicine
DX: Z79.01 Long term (current) use of anticoagulants (principal)

== ENCOUNTER 2024-03-21 12:56 | Outpatient (AMB) | payer MEDICARE, MEDICAID, SELFPAY ==
[2024-03-21 13:17] LABS: Prothrombin Time Whole Bld POC 51.9 sec (11.1-13.5); ~PT, ~INR - Anti Coag Clinic 4.3 (0.9-1.1)
--- NOTE | 2024-03-21 13:26 | MHC.OFFVISCO ---
Intake Intake Visit Reasons: Anticoagulation Allergies doxycycline Allergy (Intermediate, Verified 03/21/24 13:10) Nausea and Vomiting Medication List - Last Reconciled 03/21/24 by Rakel Ngo RN amlodipine 10 mg PO DAILY ascorbic acid (vitamin C) 1 g PO DAILY atorvastatin 40 mg PO DAILY blood pressure monitor (Blood Pressure Kit) As directed blood sugar diagnostic (ProtonMailTouch Verio test strips) one time daily blood-glucose meter (Wishbone.orguch Verio Meter) To check blood glucose once daily budesonide-formoterol 160-4.5 mcg/actuation (Symbicort) 2 puffs PO BID cholecalciferol (vitamin D3) 25 mcg PO DAILY cilostazol 100 mg PO BID cyanocobalamin (vitamin B-12) (Vitamin B-12) 250 mcg PO DAILY fluticasone propionate 50 mcg/actuation 2 sprays intranasal DAILY gabapentin 300 mg PO DAILY 90 days [garlic clove 1 dose PO NEEDED] ipratropium-albuterol 0.5 mg-3 mg(2.5 mg base)/3 mL 3 mL inhalation Q6H lancets (Wishbone.orguch Delica Plus Lancet) To test bg daily lancets As directed metformin 500 mg PO DAILY metoprolol succinate ER 25 mg PO DAILY naloxone 4 mg/actuation (Narcan) 4 mg intranasal Q2M 1 day oxycodone-acetaminophen 5-325 mg 1 tab PO Q8H PRN 30 days Ventolin HFA 90 mcg/actuation (albuterol sulfate) 2 puffs inhalation Q4-6H PRN NS walker (Ultra-Light Rollator misc) As directed, ambulate at all times with walker warfarin 5 mg See Protocol PO DAILY warfarin 2.5 mg See Protocol PO DAILY 90 days Nursing Note INR 4.3 out of therapeutic range Medications and supplements reviewed Patient status: DECREASED APPETITE X 3 DAYS WITH COLD Medications or supplements: NO CHANGES Diet: FAIR X 3 DAYS - IMPROVING Denies any signs and symptoms of bleeding or clotting or unusual bruising Bleeding, bruising, clotting discussed Nutritional guidance given: GREENS TODAY AND WEEKLY Dose: HOLD TODAY THEN DECREASE WEEKLY DOSE NEXT WEEK DUE TO INR TRENDING UP - 2.5MG MWF/ 5MG X 4 DAYS F/U INR Date : 1 WEEK 03/28/24?? Patient AND SON verbalizing understanding of instructions given WITH READ BACK. 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
== END 2024-03-21 13:40 | disposition home or self-care (01) ==
LOC: HO.ACS 12:56
PROVIDERS: PCP Internal Medicine; Visit Provider Internal Medicine
DX: Z79.01 Long term (current) use of anticoagulants (principal)

== ENCOUNTER → 2024-03-21 12:56 | Outpatient (BNVA) | payer MEDICARE, MEDICAID, SELFPAY | PROVIDERS: PCP Internal Medicine; Visit Provider Internal Medicine | DX: I82.503 Chronic embolism and thrombosis of unspecified deep veins of lower extremity, bilateral (principal); Z79.01 Long term (current) use of anticoagulants; Z51.81 Encounter for therapeutic drug level monitoring | CPT/HCPCS: 85610; 99211 ==

== ENCOUNTER 2024-03-28 12:30 | Outpatient (AMB) | payer MEDICARE, MEDICAID, SELFPAY ==
[2024-03-28 12:54] LABS: Prothrombin Time Whole Bld POC 26.9 sec (11.1-13.5); ~PT, ~INR - Anti Coag Clinic 2.2 (0.9-1.1)
--- NOTE | 2024-03-28 13:00 | MHC.OFFVISCO ---
Intake Intake Visit Reasons: Anticoagulation Allergies doxycycline Allergy (Intermediate, Verified 03/28/24 12:47) Nausea and Vomiting Medication List - Last Reconciled 03/28/24 by Rakel Ngo RN amlodipine 10 mg PO DAILY ascorbic acid (vitamin C) 1 g PO DAILY atorvastatin 40 mg PO DAILY blood pressure monitor (Blood Pressure Kit) As directed blood sugar diagnostic (OneTouch Verio test strips) one time daily blood-glucose meter (WDT AcquisitionTouch Verio Meter) To check blood glucose once daily budesonide-formoterol 160-4.5 mcg/actuation (Symbicort) 2 puffs PO BID cholecalciferol (vitamin D3) 25 mcg PO DAILY cilostazol 100 mg PO BID cyanocobalamin (vitamin B-12) (Vitamin B-12) 250 mcg PO DAILY fluticasone propionate 50 mcg/actuation 2 sprays intranasal DAILY gabapentin 300 mg PO DAILY 90 days [garlic clove 1 dose PO NEEDED] ipratropium-albuterol 0.5 mg-3 mg(2.5 mg base)/3 mL 3 mL inhalation Q6H lancets (First Insightuch Delica Plus Lancet) To test bg daily lancets As directed metformin 500 mg PO DAILY metoprolol succinate ER 25 mg PO DAILY naloxone 4 mg/actuation (Narcan) 4 mg intranasal Q2M 1 day oxycodone-acetaminophen 5-325 mg 1 tab PO Q8H PRN 30 days Ventolin HFA 90 mcg/actuation (albuterol sulfate) 2 puffs inhalation Q4-6H PRN NS walker (Ultra-Light Rollator misc) As directed, ambulate at all times with walker warfarin 5 mg See Protocol PO DAILY warfarin 2.5 mg See Protocol PO DAILY 90 days Nursing Note INR: 2.2 in therapeutic range- feeling better (INR values have been trending higher dose was decreased) Medications and supplements reviewed No changes in health, diet, medications, or supplements, Denies any signs and symptoms of bleeding or bruising or clotting. 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
== END 2024-03-28 13:02 | disposition home or self-care (01) ==
LOC: HO.ACS 12:30
PROVIDERS: PCP Internal Medicine; Visit Provider Internal Medicine
DX: Z79.01 Long term (current) use of anticoagulants (principal)

== ENCOUNTER → 2024-03-28 12:30 | Outpatient (BNVA) | payer MEDICARE, MEDICAID, SELFPAY | PROVIDERS: PCP Internal Medicine; Visit Provider Internal Medicine | DX: I82.503 Chronic embolism and thrombosis of unspecified deep veins of lower extremity, bilateral (principal); Z79.01 Long term (current) use of anticoagulants; Z51.81 Encounter for therapeutic drug level monitoring | CPT/HCPCS: 85610; 99211 ==

== ENCOUNTER 2024-03-29 12:47 | Outpatient (AMB) | payer MEDICARE, MEDICAID, SELFPAY ==
[2024-03-29 13:14] VITALS: BP 110/70; PULSE 58; O2SAT 98; BMI 22.8
--- NOTE | 2024-03-29 13:14 | MHC.OFFVIS ---
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: No Allergies doxycycline Allergy (Intermediate, Verified 03/29/24 13:21) Nausea and Vomiting Medication List - Last Reconciled 03/29/24 by Main Luis MD amlodipine 10 mg PO DAILY ascorbic acid (vitamin C) 1 g PO DAILY atorvastatin 40 mg PO DAILY blood pressure monitor (Blood Pressure Kit) As directed blood sugar diagnostic ([employer] Verio test strips) one time daily blood-glucose meter ([employer] Verio Meter) To check blood glucose once daily budesonide-formoterol 160-4.5 mcg/actuation (Symbicort) 2 puffs PO BID cholecalciferol (vitamin D3) 25 mcg PO DAILY cilostazol 100 mg PO BID cyanocobalamin (vitamin B-12) (Vitamin B-12) 250 mcg PO DAILY fluticasone propionate 50 mcg/actuation 2 sprays intranasal DAILY gabapentin 300 mg PO DAILY 90 days [garlic clove 1 dose PO NEEDED] ipratropium-albuterol 0.5 mg-3 mg(2.5 mg base)/3 mL 3 mL inhalation Q6H lancets (ZtoryTouch Delica Plus Lancet) To test bg daily lancets As directed metformin 500 mg PO DAILY metoprolol succinate ER 25 mg PO DAILY naloxone 4 mg/actuation (Narcan) 4 mg intranasal Q2M 1 day oxycodone-acetaminophen 5-325 mg 1 tab PO Q8H PRN 30 days Ventolin HFA 90 mcg/actuation (albuterol sulfate) 2 puffs inhalation Q4-6H PRN NS walker (Ultra-Light Rollator [facility] [place]) As directed, ambulate at all times with walker warfarin 5 mg See Protocol PO DAILY warfarin 2.5 mg See Protocol PO DAILY 90 days Do you need a note to return to daycare/school/sports/work: No HPI HPI COPD: Details: THIS GENTLEMAN IS 83 YEARS OLD, AGING VERY WELL, COMES AFTER 6 MONTHS FOR FOLLOW-UP. HE HAS CHRONIC OBSTRUCTIVE PULMONARY DISEASE WHICH HAS REMAINED VERY STABLE. USES SYMBICORT 160-4.52 PUFFS B.I.D. AND IPRATROIUM-ALBUTEROL Q 6 HRS WHILE AWAKE. HE DOES HAVE VENTOLIN INHALER FOR OUTDOORS USE WHICH HE USES VERY RARELY. BREATHING HAS REMAINED STABLE. COMPLAINS OF INTERMITTENT DRY COUGH BUT NO EXPECTORATION. THIS IS MORE IN THE WINTER MONTHS AND MAY BE DUE TO DRYNESS OF THE AIR. 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, without long-term current use of insulin Effusion of right knee joint Contusion of right knee Hemarthrosis involving knee joint Left shoulder pain Appetite impaired Hearing difficulty Weight loss Cough Non-rheumatic aortic stenosis Chronic pain syndrome Postlaminectomy syndrome Diabetic polyneuropathy Gastric carcinoma Peripheral vascular disease Pneumonia Hyperlipidemia LDL goal <70 COPD (chronic obstructive pulmonary disease) Type 2 diabetes mellitus with hyperglycemia Vitamin B12 deficiency Bronchiectasis Moderate aortic stenosis Compression fracture of L1 lumbar vertebra Recurrent deep vein thrombosis (DVT) Peripheral vascular disease History of gastric cancer BPH (benign prostatic hyperplasia) COPD (chronic obstructive pulmonary disease) Joint pain Surgical History History of colonoscopy Amputation of toe of left foot History of gastrectomy Family History Father Diabetes Cancer Mother Diabetes Brother Lung cancer Social History Household Members: None Household Members Other:: lives alone son checks by daily Housing: Apartment Are you a primary doggy daycare activities director to a significant other at home: No Do you presently have visiting nurse or other home services: No Alcohol intake: former Year quit: 1970 Patient Tobacco Use Status: Never used Tobacco e-Cigarette/Vaping Use: Never Used Second Hand Smoke Exposure: No service: No Current occupational status: retired Cognitive needs: Yes (walker/power chair) Hearing needs: No Vision needs: Yes (reading) Review of Systems Const All systems reviewed & are unremarkable except as noted in HPI and below Denies poor appetite and Denies weakness Eyes Denies no additional complaints ENT Reports Normal hearing present, Denies dizziness, Reports nasal congestion (MILD ), Denies tinnitus and Denies sore throat Card Denies chest pain, Denies syncope, Denies rapid heart rate and Denies dyspnea Resp Denies cough and Denies dyspnea GI Denies change in stool character, Reports constipation, Denies diarrhea, Denies nausea and Denies vomiting Denies dysuria and Denies urinary frequency Musc Reports back pain and Reports stiffness Skin/Breast Reports system reviewed and no additional complaints, except as documented Neuro Reports Normal hearing present, Denies confusion, Denies dizziness, Denies syncope and Denies weakness Psych Denies confusion Endo Reports other (Being treated for diabetes mellitus) Physical Exam Vital Signs: Last Vital Signs Pulse 58 03/29/24 13:14 BP 110/70 03/29/24 13:14 Pulse Ox 98 03/29/24 13:14 Oxygen Delivery Method Room Air 03/29/24 13:14 BMI result Body Mass Index 22.8 Const General: No confusion Orientation/consciousness: No confusion Neuro General: No confusion Cranial nerves: Yes Normal hearing present Assessment & Plan Assessment & Plan (1) COPD (chronic obstructive pulmonary disease): Comment: This patient is well known to have chronic obstructive pulmonary disease, moderately severe. He is staying stable with the current medical regimen , except for intermittent increase in cough and mucus production. Code(s): J44.9 - Chronic obstructive pulmonary disease, unspecified Category: Medical Qualifiers: COPD type: emphysema Emphysema type: unspecified Qualified Code(s): J43.9 - Emphysema, unspecified Plan: ADVISED TO CONTINUE USING SYMBICORT 160-4.52 PUFFS B.I.D. IPRATROPIUM-ALBUTEROL SOLUTION IN THE NEBULIZER TO USE Q 6 HOURS WHILE AWAKE. VENTOLIN HFA 2 PUFFS Q 6 HOURS P.R.N. WHEN OUTDOORS. ALSO ADVISED TO USE GOOD AMOUNT HUMIDIFICATION IN THE HOUSE DURING WINTER MONTHS. Coding Level of Care Code Est Pt Level 3 (34310) Diagnoses Pulmonary emphysema, unspecified emphysema type J43.9 COPD type: emphysema Emphysema type: unspecified
== END 2024-03-29 13:30 | disposition home or self-care (01) ==
PROVIDERS: PCP Internal Medicine; Visit Provider Internal Medicine
DX: J43.9 Emphysema, unspecified (principal)
CPT/HCPCS: 99213

== ENCOUNTER → 2024-03-29 12:47 | Outpatient (BNVA) | payer MEDICARE, MEDICAID, SELFPAY | PROVIDERS: PCP Internal Medicine; Visit Provider Internal Medicine | DX: J43.9 Emphysema, unspecified (principal); Z79.899 Other long term (current) drug therapy | CPT/HCPCS: 99212 ==

== ENCOUNTER 2024-04-04 13:24 | Outpatient (AMB) | payer MEDICARE, MEDICAID, SELFPAY ==
--- NOTE | 2024-04-04 13:29 | MHC.OFFVIS ---
Vital Signs 04/04/24 13:31 Height 5 ft 10 in Weight 158 lb BMI 22.7 BP 152/68 H Blood Pressure Location Lt brachial Position Sitting Respiration 16 Pulse 69 Pulse Source Pulse Oximeter Pulse Oximetry (%) 97 Oxygen Delivery Method Room Air Intake Visit Reasons: Pill Count Allergies doxycycline Allergy (Intermediate, Verified 03/29/24 13:21) Nausea and Vomiting HPI Comments Details: Bao presents to the office today, accompanied by his son, for follow up chronic pain and chronic opioid therapy management. His pill count is not correct today. His supposed to bring 75 pills in his possession. He has presented to us 67 pills his possession. Therefore he is 8 pills short. Unfortunately he would need to be suspended in opioid therapy. I will issue him a last prescription of his opioid medications to do a taper. I also recommended him to possibly try to take his opioid pills as little as possible. He was Dr. Dunn's patient. It is not clear whether opioid risk assessment was performed. Therefore I will give him benefit of the doubt and suspend him only for 6 months. On 10/02/2024 he can not come back and we will restart him on previous doses of the opioid medications. He was prescribed oxyocodone-acetaminophen 5-325mg take 1 tablet three times a day. He reports that his pain is secondary to peripheral vascular disease. He had bypass done for bilateral lower extremities. I offered patient to improve his comfort to go for a trial of spinal cord stimulator however patient adamantly refused. He stated that he does not want the surgery. Patient arrived today with the expectation of having 60 pills, he presented 60 pills which were counted in the presence of two staff members and returned to the patient in the original prescription bottle. This demonstrates responsible attitude toward patient's opioid medications. Pain today is reported today as 09/15 and last dose of pain medication was taken at 09:00 this morning. Patient denies side effects including constipation, somnolence, weakness, dizziness, nausea or vomiting. Previously: He was under care of Dr. Dunn.? Attempts to convert him to buprenorphine in the form of Bel[place] or buprenorphine patch failed. He suffers from postlaminectomy syndrome, he suffers from vascular insufficiency of bilateral lower extremities.? He has negative about neuromodulation. 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, without long-term current use of insulin Effusion of right knee joint Contusion of right knee Hemarthrosis involving knee joint Left shoulder pain Appetite impaired Hearing difficulty Weight loss Cough Non-rheumatic aortic stenosis Chronic pain syndrome Postlaminectomy syndrome Diabetic polyneuropathy Gastric carcinoma Peripheral vascular disease Pneumonia Hyperlipidemia LDL goal <70 COPD (chronic obstructive pulmonary disease) Type 2 diabetes mellitus with hyperglycemia Vitamin B12 deficiency Bronchiectasis Moderate aortic stenosis Compression fracture of L1 lumbar vertebra Recurrent deep vein thrombosis (DVT) Peripheral vascular disease History of gastric cancer BPH (benign prostatic hyperplasia) COPD (chronic obstructive pulmonary disease) Joint pain Surgical History History of colonoscopy Amputation of toe of left foot History of gastrectomy Family History Father Diabetes Cancer Mother Diabetes Brother Lung cancer Social History Household Members: None Household Members Other:: lives alone son checks by daily Housing: Apartment Are you a primary caretaker grounds to a significant other at home: No Do you presently have visiting nurse or other home services: No Alcohol intake: former Year quit: 1970 Patient Tobacco Use Status: Never used Tobacco e-Cigarette/Vaping Use: Never Used Second Hand Smoke Exposure: No service: No Current occupational status: retired Cognitive needs: Yes (walker/power chair) Hearing needs: No Vision needs: Yes (reading) Review of Systems Const All systems reviewed & are unremarkable except as noted in HPI and below Physical Exam Vital Signs: Last Vital Signs Pulse 69 04/04/24 13:31 Resp 16 04/04/24 13:31 BP 152/68 H 04/04/24 13:31 Pulse Ox 97 04/04/24 13:31 Oxygen Delivery Method Room Air 04/04/24 13:31 BMI result Body Mass Index 22.7 General: awake, alert, oriented. Answers questions appropriately. Fully engaged in examination. Skin: warm, dry, intact HEENT: Normocephalic. Hearing intact. Cardiac: External chest normal in appearance. Respiratory: No cough, audible wheezing or stridor. Abdomen: without gross distension. Soft, nontender. No guarding MS: No obvious swelling or deformities. Able to transition from sit to stand unassisted. Ambulates with bilaterally normal heel strike and toe off extemities: Significant discoloration on bilateral lower extremities inner side delineating vascular insufficiency. Neurological: Oriented to person, place, time and situation. Thought process intact. Utilizes a walking stick. Psychiatric: Appropriate mood and affect. Good judgment and insight. Assessment & Plan Assessment & Plan (1) Peripheral vascular disease: Comment: Left lower extremity vascular occluded on Left dorsalis pedis significant disease January 2021 Code(s): I73.9 - Peripheral vascular disease, unspecified Category: Medical (2) Controlled type 2 diabetes mellitus with diabetic nephropathy, without long-term current use of insulin: Code(s): E11.21 - Type 2 diabetes mellitus with diabetic nephropathy Category: Medical (3) Diabetic polyneuropathy: Code(s): E11.42 - Type 2 diabetes mellitus with diabetic polyneuropathy Category: Medical (4) Postlaminectomy syndrome: Code(s): M96.1 - Postlaminectomy syndrome, not elsewhere classified Category: Medical (5) Chronic pain syndrome: Code(s): G89.4 - Chronic pain syndrome Category: Medical Plan His 8 pills short today. Unfortunately he needs to be suspended. I will issue of the last script for him with instructions to taper the doses down. The script will be sent with advanced date of 04/30/2024. The patient can come back to this office after 10/02/2024 and we will restart him on the opioids here again. He is Dr. Dunn's patient and it is not clear whether or not he never was assessed with opioid risk. Therefore giving him the benefit of the doubt I am suspecting him for 6 months only. Medications: Refilled oxycodone-acetaminophen 5-325 mg Partial Fill only upon patient request. 1 tab PO Q8H 30 days PRN 90 tabs 0RF pain M47.816 - Spondylosis without myelopathy or radiculopathy, lumbar region Patient Instructions: lead software developer Shaila Lockhart was helping us to maintain this conversation in Indonesian today. Coding Level of Care Code Est Pt Level 3 (92297) Diagnoses Peripheral vascular disease I73.9 Controlled type 2 diabetes mellitus with diabetic nephropathy, without long-term current use of insulin E11.21 Diabetic polyneuropathy E11.42 Postlaminectomy syndrome M96.1 Chronic pain syndrome G89.4
[2024-04-04 13:31] VITALS: BP 152/68; PULSE 69; RESP 16; O2SAT 97; BMI 22.7
== END 2024-04-04 13:57 | disposition home or self-care (01) ==
PROVIDERS: PCP Internal Medicine; Visit Provider Anesthesiology
DX: I73.9 Peripheral vascular disease, unspecified (principal); E11.21 Type 2 diabetes mellitus with diabetic nephropathy; E11.42 Type 2 diabetes mellitus with diabetic polyneuropathy; M96.1 Postlaminectomy syndrome, not elsewhere classified; G89.4 Chronic pain syndrome
CPT/HCPCS: 99213

== ENCOUNTER → 2024-04-04 13:24 | Outpatient (BNVA) | payer MEDICARE, MEDICAID, SELFPAY | PROVIDERS: PCP Internal Medicine; Visit Provider Anesthesiology | DX: Z51.81 Encounter for therapeutic drug level monitoring (principal); F11.20 Opioid dependence, uncomplicated; E11.21 Type 2 diabetes mellitus with diabetic nephropathy; E11.42 Type 2 diabetes mellitus with diabetic polyneuropathy; E11.51 Type 2 diabetes mellitus with diabetic peripheral angiopathy without gangrene; M96.1 Postlaminectomy syndrome, not elsewhere classified; G89.4 Chronic pain syndrome | CPT/HCPCS: 99212 ==

== ENCOUNTER 2024-04-11 12:58 | Outpatient (AMB) | payer MEDICARE, MEDICAID, SELFPAY ==
[2024-04-11 13:19] LABS: ~PT, ~INR - Anti Coag Clinic 2.8 (0.9-1.1)
--- NOTE | 2024-04-11 13:19 | MHC.OFFVISCO ---
Intake Intake Visit Reasons: Anticoagulation Allergies doxycycline Allergy (Intermediate, Verified 04/11/24 13:04) Nausea and Vomiting Medication List - Last Reconciled 04/11/24 by Rakel Ngo RN amlodipine 10 mg PO DAILY ascorbic acid (vitamin C) 1 g PO DAILY atorvastatin 40 mg PO DAILY blood pressure monitor (Blood Pressure Kit) As directed blood sugar diagnostic (ScanbuyTouch Verio test strips) one time daily blood-glucose meter (LPATHuch Verio Meter) To check blood glucose once daily budesonide-formoterol 160-4.5 mcg/actuation (Symbicort) 2 puffs PO BID cholecalciferol (vitamin D3) 25 mcg PO DAILY cilostazol 100 mg PO BID cyanocobalamin (vitamin B-12) (Vitamin B-12) 250 mcg PO DAILY fluticasone propionate 50 mcg/actuation 2 sprays intranasal DAILY gabapentin 300 mg PO DAILY 90 days [garlic clove 1 dose PO NEEDED] ipratropium-albuterol 0.5 mg-3 mg(2.5 mg base)/3 mL 3 mL inhalation Q6H lancets (LPATHuch Delica Plus Lancet) To test bg daily lancets As directed metformin 500 mg PO DAILY metoprolol succinate ER 25 mg PO DAILY naloxone 4 mg/actuation (Narcan) 4 mg intranasal Q2M 1 day oxycodone-acetaminophen 5-325 mg 1 tab PO Q8H PRN 30 days Ventolin HFA 90 mcg/actuation (albuterol sulfate) 2 puffs inhalation Q4-6H PRN NS walker (Ultra-Light Rollator misc) As directed, ambulate at all times with walker warfarin 5 mg See Protocol PO DAILY warfarin 2.5 mg See Protocol PO DAILY 90 days Nursing Note INR: 2.8 in therapeutic range Medications and supplements reviewed Pt will have a decrease or possible cessation of percocet due to missed count with pain clinic - not sure of cause, he has been taking more tyelnol for pain. Denies any signs and symptoms of bleeding or bruising or clotting. Bleeding, bruising, clotting discussed Nutritional guidance given - make sure to eat your weekly greens when taking more tylenol than usual Dose: 2.5mg mwf/ 5mg x 4 days F/U INR: 2 weeks Patient verbalizes understanding of instructions given Anti-Coag Initial Assessment Social Hx Patient Tobacco Use Status: Never used Tobacco alcohol intake: former Alcohol intake frequency: does not drink Coding Level of Care Code Est Patient Level 1 Diagnoses Current use of anticoagulant therapy Z79.01 Results AMB INR Fingerstick AMB INR Fingerstick 2.8 Last Edit by Rakel Ngo RN on 04/11/24 13:10 manual entry Assessment & Plan Assessment & Plan (1) Current use of anticoagulant therapy: Code(s): Z79.01 - longterm (current) 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
== END 2024-04-11 13:23 | disposition home or self-care (01) ==
LOC: HO.ACS 12:58
PROVIDERS: PCP Internal Medicine; Visit Provider Internal Medicine
DX: Z79.01 Long term (current) use of anticoagulants (principal)

== ENCOUNTER → 2024-04-11 12:58 | Outpatient (BNVA) | payer MEDICARE, MEDICAID, SELFPAY | PROVIDERS: PCP Internal Medicine; Visit Provider Internal Medicine | DX: I82.503 Chronic embolism and thrombosis of unspecified deep veins of lower extremity, bilateral (principal); Z79.01 Long term (current) use of anticoagulants; Z51.81 Encounter for therapeutic drug level monitoring | CPT/HCPCS: 85610; 99211 ==

== ENCOUNTER 2024-04-12 11:08 | Emergency (ER) | payer MEDICARE, MEDICAID, SELFPAY ==
--- NOTE | ~2024-04-12 | XR_ITS ---
EXAMINATION: XR CHEST CLINICAL INFORMATION: CP COMPARISON: 03/17/2023, 10/29/2022. TECHNIQUE: 2 views of the chest were obtained. FINDINGS: Elevated left hemidiaphragm. The cardiac, hilar, and mediastinal contours are normal. Aorta is calcified. Lungs again demonstrate left basilar scarring. They are otherwise clear. There is no pneumothorax or pleural effusion. There is no focal osseous or soft tissue abnormality. XR/XR chest 2V IMPRESSION: No active pulmonary disease. Stable left basilar scarring with elevation of the left hemidiaphragm. Electronically signed by: Jesse Amador MD 04/12/2024 01:36 PM EST
--- NOTE | 2024-04-12 11:17 | ECG_ITS ---
Test Reason : CHEST PAIN Blood Pressure : */* mmHG Vent. Rate : 68 BPM Atrial Rate : 68 BPM P-R Int : 210 ms QRS Dur : 102 ms QT Int : 402 ms P-R-T Axes : 92 -39 -2 degrees QTcB Int : 427 ms Sinus rhythm with sinus arrhythmia with 1st degree A-V block Left axis deviation Pulmonary disease pattern Minimal voltage criteria for LVH, may be normal variant ( R in aVL ) Abnormal ECG When compared with ECG of 05-Jul-2023 21:45, No significant change was found Referred By: Noelle Dorantes Electronically Signed By: Kunal Pickens
[2024-04-12 11:22] VITALS: BP 119/72; BP 132/65; PULSE 77; PULSE 81; RESP 16; TEMP 36.9; O2SAT 97; BMI 20.1
--- NOTE | 2024-04-12 11:56 | ED.GENADULT ---
HPI - General Adult General Chief complaint: General Medical Stated complaint: L CP WORSE W/COUGH X1MTH PER EMS Time Seen by Provider: 04/12/24 11:16 History of Present Illness ED Provider: Dr. Doarntes HPI narrative: 83 y/o M patient; PMH HTN, HLD, COPD, T2DM, CKD, recurrent DVT on Coumadin; presents from home reporting 24 hours of chest pain associated with approx 1 month of a dry cough and generalized body aches. The patient otherwise denies: fever or chills, SOB, nausea/vomiting/diarrhea, abdominal pain. Related Data Home Medications ?Medication ?Instructions ?Recorded ?Confirmed lancets 28 gauge #100 ea 01/03/20 04/11/24 ascorbic acid (vitamin C) 1,000 mg 1 g PO DAILY 01/27/20 04/11/24 tablet cholecalciferol (vitamin D3) 25 25 mcg PO DAILY 01/27/20 04/11/24 mcg (1,000 unit) capsule garlic clove 1 dose PO NEEDED 04/25/22 04/11/24 Previous Rx's ?Medication ?Instructions ?Recorded Ventolin HFA 90 mcg/actuation 2 puff inhalation Q4-6H PRN for 08/13/20 aerosol inhaler (albuterol sulfate) wheezing #54 grams walker (Ultra-Light Rollator misc) #1 ea 06/11/21 ipratropium 0.5 mg-albuterol 3 mg 3 ml inhalation Q6H #180 mL 07/22/21 (2.5 mg base)/3 mL nebulization soln blood-glucose meter (OneTouch #1 ea 12/25/21 Verio Meter) lancets 30 gauge (OneTouch Delica #100 ea 01/08/22 Plus Lancet) warfarin 2.5 mg tablet 2.5 mg PO DAILY 90 days #90 tabs 05/28/22 naloxone 4 mg/actuation nasal 4 mg intranasal Q2M 1 day #2 ea 01/27/23 spray (Narcan) gabapentin 300 mg capsule 300 mg PO DAILY 90 days #90 caps 05/18/23 blood pressure monitor (Blood #1 ea 06/18/23 Pressure Kit) atorvastatin 40 mg tablet 40 mg PO DAILY #90 tabs 07/06/23 amlodipine 10 mg tablet 10 mg PO DAILY #90 tabs 08/05/23 metformin 500 mg tablet 500 mg PO DAILY #90 tabs 08/09/23 budesonide-formoterol HFA 160 2 puff PO BID #30.6 ea 09/04/23 mcg-4.5 mcg/actuation aerosol inhaler (Symbicort) fluticasone propionate 50 2 spray intranasal DAILY #48 mL 09/04/23 mcg/actuation nasal spray,suspension warfarin 5 mg tablet 5 mg PO DAILY #90 tabs 11/08/23 cilostazol 100 mg tablet 100 mg PO BID #180 tabs 12/25/23 blood sugar diagnostic (OneTouch #50 ea 02/24/24 Verio test strips) cyanocobalamin (vitamin B-12) 250 250 mcg PO DAILY #90 tabs 03/27/24 mcg tablet (Vitamin B-12) metoprolol succinate 25 mg 25 mg PO DAILY #90 tabs 03/27/24 tablet,extended release 24 hr oxycodone-acetaminophen 5 mg-325 1 tab PO Q8H PRN pain 30 days #90 04/04/25 mg tablet tabs Allergies Allergy/AdvReac Type Severity Reaction Status Date / Time doxycycline Allergy Intermediate Nausea and Verified 04/12/24 11:24 Vomiting Review of Systems Review of Systems: Yes all other systems are reviewed and are negative PMFSH Past Medical History Attestation statement: The following information was validated with the patient. 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, without long-term current use of insulin Effusion of right knee joint Contusion of right knee Hemarthrosis involving knee joint Left shoulder pain Appetite impaired Hearing difficulty Weight loss Cough Non-rheumatic aortic stenosis Chronic pain syndrome Postlaminectomy syndrome Diabetic polyneuropathy Gastric carcinoma Peripheral vascular disease Pneumonia Hyperlipidemia LDL goal <70 COPD (chronic obstructive pulmonary disease) Type 2 diabetes mellitus with hyperglycemia Vitamin B12 deficiency Bronchiectasis Moderate aortic stenosis Compression fracture of L1 lumbar vertebra Recurrent deep vein thrombosis (DVT) Peripheral vascular disease History of gastric cancer BPH (benign prostatic hyperplasia) COPD (chronic obstructive pulmonary disease) Joint pain Surgical History History of colonoscopy Amputation of toe of left foot History of gastrectomy Family History Family History Father Diabetes Cancer Mother Diabetes Brother Lung cancer Social History Social History Household Members: None Household Members Other:: lives alone son checks by daily Housing: Apartment Are you a primary health care assistant to a significant other at home: No Do you presently have visiting nurse or other home services: No Alcohol intake: former Year quit: 1970 Patient Tobacco Use Status: Never used Tobacco Smoked in Last 30 Days: No e-Cigarette/Vaping Use: Never Used Second Hand Smoke Exposure: No Use of substances other than those prescribed or required for medical reasons: No Advance Directives: No service: No Current occupational status: retired Cognitive needs: Yes (walker/power chair) Hearing needs: No Vision needs: Yes (reading) Physical Exam ED Vital Signs: Vital Signs - 24 hr 04/12/24 11:22 04/12/24 13:17 Temperature 98.4 F 98.4 F Pulse Rate 77 67 Respiratory Rate 16 16 Blood Pressure 132/65 127/69 Pulse Oximetry 97 95 Oxygen Delivery Method Room Air Room Air BMI result Body Mass Index 20.1 Patient is afebrile and hemodynamically stable. Const General: cooperative and no acute distress HENMT Head: Yes normal to inspection and Yes atraumatic Eyes General: appearance normal, both eyes and all related structures Pupils: Equal, round and reactive pupils present EOM: EOMs intact bilaterally Neck Neck: Yes normal visual inspection, Yes full ROM, Yes supple and No tender Chest Chest palpation & inspection: normal inspection of the chest and normal palpation of entire chest wall Resp Effort & Inspection: normal respiratory effort, able to speak in complete sentences, no cough and no respiratory distress Auscultation: clear to auscultation bilaterally Cardio Rate: regular rate Rhythm: regular rhythm Peripheral pulses: Peripheral pulses 2+ throughout GI Inspection: Yes normal to inspection, No Abdominal wall edema and No distended Palpation (GI): Soft to palpation, not firm, nontender, no guarding and not rigid Back/Spine/Pelvis Back: No back tenderness Neuro Cranial nerves: Yes Equal, round and reactive pupils present Course Course Course Narrative: Patient is afebrile and hemodynamically stable. Ordered for EKG, CXR, and cardiac labs. The patient's son at bedside is concerned as patient has been taken off of percocet by the pain medicine clinic. He reports he has been giving the patient tylenol for his pain but is concerned about the effect on his INR. INR checked today and within appropriate levels. Cautioned the patient about appropriate doses of tylenol. CXR unremarkable. Labs reviewed. Baseline anemia. Baseline mild thrombocytopenia. Troponin 10.2. Repeat troponin ordered. COVID/Flu/RSV negative. 2nd trop is reassuring. With x2 negative troponin, less likely ACS. Will reassuring CXR, less likely pneumonia, pneumothorax, aortic dissection. Plan: Discharge to home with PCP follow up Return precautions given Medical Decision Making Lab Data 04/12/24 11:48 04/12/24 11:48 Labs: Lab Results 04/12/24 04/12/24 Range/Units 11:48 13:55 WBC 6.2 (4.8-10.8) X10*3/uL RBC 3.87 L (4.60-5.80) X10*6/uL Hgb 11.1 L (14.0-18.0) g/dl Hct 34.4 L (42.0-52.0) % MCV 88.9 (80.0-98.0) fL MCH 28.7 (27.0-33.0) pg MCHC 32.3 (31.0-36.0) g/dl RDW 14.8 (11.0-16.0) % Plt Count 125 L (160-400) X10*3/uL MPV 11.7 (9.4-12.4) fL Immature Gran % (Auto) 0.3 (0.0-0.4) % Neut % (Auto) 75.5 H (45-73) % Lymph % (Auto) 14.4 L (20-40) % Ferry % (Auto) 7.1 (2-11) % Eos % (Auto) 2.4 (0-4) % Baso % (Auto) 0.3 (0-2) % Lymph # (Auto) 0.9 L (1.2-4.9) X10*3/uL Ferry # (Auto) 0.4 (0.1-1.2) X10*3/uL Eos # (Auto) 0.2 (0.0-0.4) X10*3/uL Baso # (Auto) 0.0 (0.0-0.2) X10*3/uL Abs Immat Gran (auto) 0.02 (0.00-0.03) X10*3/uL Absolute Neuts (auto) 4.7 (2.0-8.3) x10*3/uL Absolute Nucleated RBC 0.000 (0.0-0.012) X10*3/uL Nucleated RBC % (auto) 0.0 (0.0-0.2) /100WBC Smear Tech's Comments VERIFIED PT 32.7 H (10.9-12.4) SEC INR 2.8 H (0.9-1.1) Sodium 143 (135-145) mmol/L Potassium 4.2 (3.3-5.1) mmol/L Chloride 106 (96-108) mmol/L Carbon Dioxide 25 (22-29) mmol/L Anion Gap 16 (12-20) BUN 10 (9-16) mg/dL Creatinine 1.20 (0.5-1.4) mg/dL Estim Creat Clear Calc 40.4 Estimated GFR 58 Random Glucose 171 H (60-115) mg/dL Calcium 9.2 D (8.4-10.2) mg/dL Magnesium 1.8 (1.6-2.6) mg/dL Total Bilirubin 0.7 (0.0-1.0) mg/dL AST 18 (5-37) U/L ALT 12 (0-40) U/L Alkaline Phosphatase 63 (39-117) U/L Troponin I High Sens 10.2 9.0 (<3.5-35.0) ng/L Total Protein 6.6 (6.5-8.0) g/dL Albumin 4.1 (3.5-5.0) g/dL Influenza Type A (PCR) NEGATIVE (Negative) Influenza Type B (PCR) NEGATIVE (Negative) RSV RNA Qual (PCR) NEGATIVE (Negative) SARS-CoV-2 RNA (RT-PCR) NEGATIVE (Negative) Independent Interpretation I performed an independent interpretation of an: EKG Interpretation: NSR 68BPM with MS 210 Radiology Impression Discussion of test interpretation with radiology: I have reviewed the radiologist's reading. Radiologist Impression: EXAMINATION: XR CHEST CLINICAL INFORMATION: CP COMPARISON: 03/17/2023, 10/29/2022. TECHNIQUE: 2 views of the chest were obtained. FINDINGS: Elevated left hemidiaphragm. The cardiac, hilar, and mediastinal contours are normal. Aorta is calcified. Lungs again demonstrate left basilar scarring. They are otherwise clear. There is no pneumothorax or pleural effusion. There is no focal osseous or soft tissue abnormality. XR/XR chest 2V IMPRESSION: No active pulmonary disease. Stable left basilar scarring with elevation of the left hemidiaphragm. Electronically signed by: Jesse Amador MD 04/12/2024 01:36 PM [facility] Discharge Plan Discharge Clinical Impression: Chest pain Patient Disposition: Home, Self-Care Instructions: Chest Pain (ED) Additional Instructions: As we discussed, you were seen today for chest pain. Your labs, EKG of your heart, and chest XR were reassuring. Please follow up with your PCP within the next 1 - 2 days for re-evaluation and to discuss your recent emergency department visit. Return to the emergency department for: Worsening chest pain Difficulty breathing Passing out Prescriptions: No Action albuterol sulfate [Ventolin HFA] 90 mcg/actuation HFA aerosol inhaler 2 puff inhalation Q4-6H PRN (Reason: for wheezing) Qty: 54 1RF ipratropium-albuterol 0.5 mg-3 mg(2.5 mg base)/3 mL solution for nebulization 3 ml inhalation Q6H Qty: 180 1RF (DME) blood-glucose meter [OneTouch Verio Meter] Misc See Rx Instructions .ROUTE .MEDSUPPLY Qty: 1 0RF Rx Instructions: To check blood glucose once daily (DME) lancets [OneTouch Delica Plus Lancet] 30 gauge misc See Rx Instructions .ROUTE .MEDSUPPLY Qty: 100 3RF Rx Instructions: To test bg daily warfarin 2.5 mg tablet 2.5 mg PO DAILY 90 Days Qty: 90 2RF Protocol: Dose Management Condition: Thursday (Week One) Dose/Route: 5 mg Instruction: 1 x 5 mg tablet Condition: Thursday Dose/Route: 2.5 mg Instruction: 1 x 2.5 mg tablet Condition: Thursday Dose/Route: 5 mg Instruction: 1 x 5 mg tablet Condition: Thursday Dose/Route: 2.5 mg Instruction: 1 x 2.5 mg tablet Condition: Dose/Route: 5 mg Instruction: 1 x 5 mg tablet Condition: Thursday Dose/Route: 2.5 mg Instruction: 1 x 2.5 mg tablet Condition: Thursday Dose/Route: 5 mg Instruction: 1 x 5 mg tablet Condition: Thursday (Week Two) Dose/Route: 5 mg Instruction: 1 x 5 mg tablet Condition: Thursday Dose/Route: 2.5 mg Instruction: 1 x 2.5 mg tablet Condition: Thursday Dose/Route: 5 mg Instruction: 1 x 5 mg tablet Condition: Thursday Dose/Route: 2.5 mg Instruction: 1 x 2.5 mg tablet Condition: Dose/Route: 5 mg Instruction: 1 x 5 mg tablet Condition: Thursday Dose/Route: 2.5 mg Instruction: 1 x 2.5 mg tablet Condition: Thursday Dose/Route: 5 mg Instruction: 1 x 5 mg tablet Protocol Text: Adjustment Start Date: Thursday04/11/24 INR Value: 2.8 INR Date: 04/11/24 Recheck Date: 04/25/24 Additional Instructions: REVIEW FOOD LIST WEEKLY, EAT A MIX OF FRUITS AND VEGETABLES - WHILE TAKING MORE TYLENOL MAY NEED TO EAT AN EXTRA SERVING OF GRE[place]/ WEEK naloxone [Narcan] 4 mg/actuation spray,non-aerosol 4 mg intranasal Q2M 1 Days Qty: 2 1RF Rx Instructions: spray 1 dose into ONE nostril; alternate nostrils w each dose until help arrives gabapentin 300 mg capsule 300 mg PO DAILY 90 Days Qty: 90 3RF atorvastatin 40 mg tablet 40 mg PO DAILY Qty: 90 3RF amlodipine 10 mg tablet 10 mg PO DAILY Qty: 90 2RF metformin 500 mg tablet 500 mg PO DAILY Qty: 90 3RF fluticasone propionate 50 mcg/actuation spray,suspension 2 spray intranasal DAILY Qty: 48 2RF budesonide-formoterol [Symbicort] 160-4.5 mcg/actuation HFA aerosol inhaler 2 puff PO BID Qty: 30.6 6RF warfarin 5 mg tablet 5 mg PO DAILY Qty: 90 3RF Protocol: Dose Management Condition: Thursday (Week One) Dose/Route: 5 mg Instruction: 1 x 5 mg tablet Condition: Thursday Dose/Route: 2.5 mg Instruction: 1 x 2.5 mg tablet Condition: Thursday Dose/Route: 5 mg Instruction: 1 x 5 mg tablet Condition: Thursday Dose/Route: 2.5 mg Instruction: 1 x 2.5 mg tablet Condition: Dose/Route: 5 mg Instruction: 1 x 5 mg tablet Condition: Thursday Dose/Route: 2.5 mg Instruction: 1 x 2.5 mg tablet Condition: Thursday Dose/Route: 5 mg Instruction: 1 x 5 mg tablet Condition: Thursday (Week Two) Dose/Route: 5 mg Instruction: 1 x 5 mg tablet Condition: Thursday Dose/Route: 2.5 mg Instruction: 1 x 2.5 mg tablet Condition: Thursday Dose/Route: 5 mg Instruction: 1 x 5 mg tablet Condition: Thursday Dose/Route: 2.5 mg Instruction: 1 x 2.5 mg tablet Condition: Dose/Route: 5 mg Instruction: 1 x 5 mg tablet Condition: Thursday Dose/Route: 2.5 mg Instruction: 1 x 2.5 mg tablet Condition: Thursday Dose/Route: 5 mg Instruction: 1 x 5 mg tablet Protocol Text: Adjustment Start Date: Thursday04/11/24 INR Value: 2.8 INR Date: 04/11/24 Recheck Date: 04/25/24 Additional Instructions: REVIEW FOOD LIST WEEKLY, EAT A MIX OF FRUITS AND VEGETABLES - WHILE TAKING MORE TYLENOL MAY NEED TO EAT AN EXTRA SERVING OF GREENS/ WEEK cilostazol 100 mg tablet 100 mg PO BID Qty: 180 3RF (DME) OneTouch Verio test strips Strip See Rx Instructions .ROUTE .MEDSUPPLY Qty: 50 11RF Rx Instructions: one time daily cyanocobalamin (vitamin B-12) [Vitamin B-12] 250 mcg tablet 250 mcg PO DAILY Qty: 90 3RF metoprolol succinate 25 mg tablet extended release 24 hr 25 mg PO DAILY Qty: 90 0RF cholecalciferol (vitamin D3) 25 mcg (1,000 unit) capsule 25 mcg PO DAILY ascorbic acid (vitamin C) 1,000 mg tablet 1 g PO DAILY (DME) Ultra-Light Rollator Misc See Rx Instructions .Route Qty: 1 0RF Rx Instructions: As directed, ambulate at all times with walker (DME) blood pressure monitor [Blood Pressure Kit] Kit See Rx Instructions .ROUTE .MEDSUPPLY Qty: 1 0RF Rx Instructions: As directed (DME) lancets 28 gauge misc See Rx Instructions topical DAILY Qty: 100 Rx Instructions: As directed garlic clove 1 unit 1 dose PO NEEDED Patient Comments: pt eats one clove of garlic daily oxycodone-acetaminophen 5-325 mg tablet 1 tab PO Q8H PRN (Reason: pain) 30 Days Qty: 90 0RF Rx Instructions: Partial Fill only upon patient request. Print Language: Kinyarwanda
[2024-04-12 11:58] LABS: Basophils Percent Auto 0.3 % (0-2); Eosinophils Absolute Auto 0.2 X10*3/uL (0.0-0.4); Eosinophils Percent Auto 2.4 % (0-4); Hematocrit 34.4 % (42.0-52.0); Hemoglobin 11.1 g/dl (14.0-18.0); Imm Gran Abs Auto 0.02 X10*3/uL (0.00-0.03); Imm Gran Pct Auto 0.3 % (0.0-0.4); Lymphocytes Absolute Auto 0.9 X10*3/uL (1.2-4.9); Lymphocytes Percent Auto 14.4 % (20-40); MANUAL DIFF FLAG SCAN; Mean Corpuscular HGB Conc 32.3 g/dl (31.0-36.0); Mean Corpuscular Hemoglobin 28.7 pg (27.0-33.0); Mean Corpuscular Volume 88.9 fL (80.0-98.0); Mean Platelet Volume 11.7 fL (9.4-12.4); Monocytes Absolute Auto 0.4 X10*3/uL (0.1-1.2); Monocytes Percent Auto 7.1 % (2-11); Neutrophils Absolute Auto 4.7 x10*3/uL (2.0-8.3); Neutrophils Percent Auto 75.5 % (45-73); PLT CLUMP 1; Red Blood Count 3.87 X10*6/uL (4.60-5.80); Red Cell Distribution Width 14.8 % (11.0-16.0); SCAN SMEAR FLAG 1
[2024-04-12 12:00] LABS: INTERNATIONAL NORM RATIO 2.8 (0.9-1.1); Prothrombin Time 32.7 SEC (10.9-12.4)
[2024-04-12 12:16] LABS: Alanine Aminotransferase 12 U/L (0-40); Albumin Level 4.1 g/dL (3.5-5.0); Alkaline Phosphatase 63 U/L (39-117); Anion Gap 16 (12-20); Aspartate Amino Transferase 18 U/L (5-37); Bilirubin Total 0.7 mg/dL (0.0-1.0); Blood Urea Nitrogen 10 mg/dL (9-16); Calcium 9.2 mg/dL (8.4-10.2); Carbon Dioxide 25 mmol/L (22-29); Chloride 106 mmol/L (96-108); Creatinine Clr Calc Pharmacy 40.4; Estimated Glomerular Filt Rate 58; Glucose Random 171 mg/dL (60-115); Magnesium 1.8 mg/dL (1.6-2.6); Potassium 4.2 mmol/L (3.3-5.1); Sodium 143 mmol/L (135-145); Total Protein 6.6 g/dL (6.5-8.0)
--- NOTE | 2024-04-12 12:17 | PC.NURSE ---
Called the lab, confirmed that CBC had already successfully resulted, 2nd one ordered is a duplicate, okay to cancel.
[2024-04-12 12:23] LABS: Troponin-I High Sensitivity 10.2 ng/L (<3.5-35.0)
[2024-04-12 12:34] LABS: Platelet Count 125 X10*3/uL (160-400); White Blood Count 6.2 X10*3/uL (4.8-10.8)
[2024-04-12 12:35] LABS: SLIDE REVIEW VERIFIED
[2024-04-12 12:37] LABS: Influenza A PCR NEGATIVE (Negative); Influenza B PCR NEGATIVE (Negative); Resp Syncy Virus RNA Qual PCR NEGATIVE (Negative); SARS COV2 PCR INHOUSE NEGATIVE (Negative)
[2024-04-12 13:17] VITALS: BP 127/69; PULSE 67; RESP 16; TEMP 36.9; O2SAT 95
[2024-04-12 14:42] VITALS: BP 127/69; PULSE 67; RESP 16; TEMP 36.9; O2SAT 95
== END 2024-04-12 14:43 | disposition home or self-care (01) ==
PROVIDERS: Emergency Provider Emergency Medicine; PCP Internal Medicine
DX: R07.89 Other chest pain (principal); R05.9 Cough, unspecified; M79.10 Myalgia, unspecified site; Z03.818 Encounter for observation for suspected exposure to other biological agents ruled out; Z79.899 Other long term (current) drug therapy; Z79.01 Long term (current) use of anticoagulants
CPT/HCPCS: 0241U; 36415; 71046; 80053; 83735; 84484; 85025; 85610; 93005; 99283; 99284

== ENCOUNTER → 2024-04-12 11:58 | Outpatient (BNV) | payer MEDICARE, MEDICAID, SELFPAY | PROVIDERS: Emergency Provider Emergency Medicine; PCP Internal Medicine; Visit Provider Radiology Diagnostic Radiology | DX: R07.9 Chest pain, unspecified (principal) | CPT/HCPCS: 71046 ==

== ENCOUNTER 2024-04-27 13:01 | Outpatient (AMB) | payer MEDICARE, MEDICAID, SELFPAY ==
--- NOTE | 2024-04-27 13:18 | MHC.OFFVISCO ---
Intake Intake Visit Reasons: Anticoagulation Allergies doxycycline Allergy (Intermediate, Verified 04/27/24 13:03) Nausea and Vomiting Medication List - Last Reconciled 04/27/24 by Isabela Freeman RN amlodipine 10 mg PO DAILY ascorbic acid (vitamin C) 1 g PO DAILY atorvastatin 40 mg PO DAILY blood pressure monitor (Blood Pressure Kit) As directed blood sugar diagnostic (OneTouch Verio test strips) one time daily blood-glucose meter (CE Interactiveuch Verio Meter) To check blood glucose once daily budesonide-formoterol 160-4.5 mcg/actuation (Symbicort) 2 puffs PO BID cholecalciferol (vitamin D3) 25 mcg PO DAILY cilostazol 100 mg PO BID cyanocobalamin (vitamin B-12) (Vitamin B-12) 250 mcg PO DAILY fluticasone propionate 50 mcg/actuation 2 sprays intranasal DAILY gabapentin 300 mg PO DAILY 90 days [garlic clove 1 dose PO NEEDED] ipratropium-albuterol 0.5 mg-3 mg(2.5 mg base)/3 mL 3 mL inhalation Q6H lancets (CE Interactiveuch Delica Plus Lancet) To test bg daily lancets As directed metformin 500 mg PO DAILY metoprolol succinate ER 25 mg PO DAILY naloxone 4 mg/actuation (Narcan) 4 mg intranasal Q2M 1 day oxycodone-acetaminophen 5-325 mg 1 tab PO Q8H PRN 30 days Ventolin HFA 90 mcg/actuation (albuterol sulfate) 2 puffs inhalation Q4-6H PRN NS walker (Ultra-Light Rollator misc) As directed, ambulate at all times with walker warfarin 5 mg See Protocol PO DAILY warfarin 2.5 mg See Protocol PO DAILY 90 days Nursing Note NO CP,SOB,DIET/MED CHANGES,FALLS OR SX OF BLEEDING. CONTINUE PRESENT DOSE AND FOLLOW-UP IN 3 WEEKS. GOOD UNDERSTANDING OF DOSING INSTR. Anti-Coag Initial Assessment Social Hx Patient Tobacco Use Status: Never used Tobacco alcohol intake: former Alcohol intake frequency: does not drink Coding Level of Care Code Est Patient Level 1 Diagnoses Current use of anticoagulant therapy Z79.01 Results AMB INR Fingerstick AMB INR Fingerstick 2.2 Last Edit by Isabela Freeman RN on 04/27/24 13:14 Assessment & Plan Assessment & Plan (1) Current use of anticoagulant therapy: Code(s): Z79.01 - USP (current) 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
[2024-04-27 15:59] LABS: Prothrombin Time Whole Bld POC 26.4 sec (11.1-13.5); ~PT, ~INR - Anti Coag Clinic 2.2 (0.9-1.1)
== END 2024-04-27 13:20 | disposition home or self-care (01) ==
LOC: HO.ACS 13:01
PROVIDERS: PCP Internal Medicine; Visit Provider Internal Medicine
DX: Z79.01 Long term (current) use of anticoagulants (principal)

== ENCOUNTER → 2024-04-27 13:01 | Outpatient (BNVA) | payer MEDICARE, MEDICAID, SELFPAY | PROVIDERS: PCP Internal Medicine; Visit Provider Internal Medicine | DX: I82.503 Chronic embolism and thrombosis of unspecified deep veins of lower extremity, bilateral (principal); Z79.01 Long term (current) use of anticoagulants; Z51.81 Encounter for therapeutic drug level monitoring | CPT/HCPCS: 85610; 99211 ==

== ENCOUNTER 2024-05-02 13:16 | Outpatient (AMB) | payer MEDICARE, MEDICAID, SELFPAY ==
--- NOTE | 2024-05-02 13:36 | A.OFFPC_ITS ---
Vital Signs 05/02/24 13:39 Height 5 ft 10 in Weight 164 lb 2 oz BMI 23.5 BP 110/60 Blood Pressure Location Lt brachial Position Sitting Pulse 81 Pulse Source Pulse Oximeter Temp 97.1 F Temp Source Temporal Artery Scan Pulse Oximetry (%) 98 Oxygen Delivery Method Room Air Intake Visit Reasons: f/u HTN/ DM Intake Note: Patient is here to follow up on DM, HTN. Physician Coding Specialist Required: Yes Physician Coding Specialist Language: Financial Aid Coordinator Name: Bao Castillo(son) Information Interpreted: non-clinical & clinical (Pt decline children's book author service, will prefer son to translate.) Herbologist: Present Accompanied by: Son Allergies doxycycline Allergy (Intermediate, Verified 05/02/24 13:39) Nausea and Vomiting Medication List - Last Reconciled 05/02/24 by Chelsi Painter PA-C amlodipine 10 mg PO DAILY ascorbic acid (vitamin C) 1 g PO DAILY atorvastatin 40 mg PO DAILY blood pressure monitor (Blood Pressure Kit) As directed blood sugar diagnostic ([employer] Verio test strips) one time daily blood-glucose meter ([employer] Verio Meter) To check blood glucose once daily budesonide-formoterol 160-4.5 mcg/actuation (Symbicort) 2 puffs PO BID cholecalciferol (vitamin D3) 25 mcg PO DAILY cilostazol 100 mg PO BID cyanocobalamin (vitamin B-12) (Vitamin B-12) 250 mcg PO DAILY fluticasone propionate 50 mcg/actuation 2 sprays intranasal DAILY gabapentin 300 mg PO DAILY 90 days [garlic clove 1 dose PO NEEDED] ipratropium-albuterol 0.5 mg-3 mg(2.5 mg base)/3 mL 3 mL inhalation Q6H lancets ([employer] Delica Plus Lancet) To test bg daily lancets As directed metformin 500 mg PO DAILY metoprolol succinate ER 25 mg PO DAILY naloxone 4 mg/actuation (Narcan) 4 mg intranasal Q2M 1 day oxycodone-acetaminophen 5-325 mg 1 tab PO Q8H PRN 30 days Ventolin HFA 90 mcg/actuation (albuterol sulfate) 2 puffs inhalation Q4-6H PRN NS walker (Ultra-Light Rollator misc) As directed, ambulate at all times with walker warfarin 5 mg See Protocol PO DAILY warfarin 2.5 mg See Protocol PO DAILY 90 days Tobacco use date assessed: 05/02/24 Fall risk assessment: No Falls in past year Last assessed Fall Risk: 05/02/24 Dental Screening Dental Screen Date: 05/02/24 Did you have a dental visit in the last 12 months?: Yes Did you have a dental problem in the last 6 months where you did not have access to dental care?: No Was dental information given to patient?: Patient has dentist HPI f/u HTN/ DM HPI Details 83-year-old male with past medical histo ry of BPH, chronic kidney disease, moderate aortic stenosis, diabetes mellitus, COPD, recurrent DVT, hypercholesterolemia, hypertension, gastric cancer, post laminectomy syndrome with chronic pain last seen 01/2024 coming in for follow up. In review of the notes, patient was [place] [facility] [place] for chest pain labs, EKG and chest x- ray were reassuring and patient was discharged home. Patient was seen by pain management 04/04/2024.?Seen by pulmonology 03/29/2024 advised to continue on Symbicort and DuoNeb as needed. Patient presents today with his son who translates for the duration of this visit. Formal translation was declined. Overall he is feeling generally well. His cough has mostly subsided and he is no longer having chest pain. He is feeling fatigued. He was previously on iron supplementation in the past for his anemia but has not been on this medication in quite some time. 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, without long-term current use of insulin Effusion of right knee joint Contusion of right knee Hemarthrosis involving knee joint Left shoulder pain Appetite impaired Hearing difficulty Weight loss Cough Non-rheumatic aortic stenosis Chronic pain syndrome Postlaminectomy syndrome Diabetic polyneuropathy Gastric carcinoma Peripheral vascular disease Pneumonia Hyperlipidemia LDL goal <70 COPD (chronic obstructive pulmonary disease) Type 2 diabetes mellitus with hyperglycemia Vitamin B12 deficiency Bronchiectasis Moderate aortic stenosis Compression fracture of L1 lumbar vertebra Recurrent deep vein thrombosis (DVT) Peripheral vascular disease History of gastric cancer BPH (benign prostatic hyperplasia) COPD (chronic obstructive pulmonary disease) Joint pain Surgical History History of colonoscopy Amputation of toe of left foot History of gastrectomy Family History Father Diabetes Cancer Mother Diabetes Brother Lung cancer Social History Household Members: None Household Members Other:: lives alone son checks by daily Housing: Apartment Are you a primary child care leader to a significant other at home: No Do you presently have visiting nurse or other home services: No Alcohol intake: former Year quit: 1969 Patient Tobacco Use Status: Never used Tobacco e-Cigarette/Vaping Use: Never Used Second Hand Smoke Exposure: No service: No Current occupational status: retired Cognitive needs: Yes (walker/power chair) Hearing needs: No Vision needs: Yes (reading) Questionnaire PHQ-9 Over the last 2 weeks, how often have you been bothered by any of the following problems? 1. Little interest or pleasure in doing things: not at all 2. Feeling down, depressed, or hopeless: not at all 3. Trouble falling or staying asleep, or sleeping too much: not at all 4. Feeling tired or having little energy: not at all 5. Poor appetite or overeating: not at all 6. Feeling bad about yourself - or that you are a failure or have let yourself or your family down: not at all 7. Trouble concentrating on things, such as reading the newspaper or watching television: not at all 8. Moving or speaking so slowly that other people could have noticed. Or the o pposite - being so fidgety or restless that you have been moving around a lot more than usual: not at all 9. Thoughts that you would be better off or of hurting yourself in some way: not at all Total score: 0 Depression Screening Interpretation: Negative Depression Screening Done: Yes Source: Developed by Drs. Irwin Adrian, Teresa Pickard, Billy Linda and colleagues, with an educational janina from [employer]. Thrive Questionnaire Date Thrive assessed: 05/02/24 I am a: Patient What is your living situation today?: I have a steady place to live Within the past 12 months, did the food you bought not last and you didn't have the money to get more?: Never true Within the past 12 months, did you worry whether your food would run out before you got money to buy more?: Never true Do you have trouble paying for medicines?: No Do you have trouble getting transportation to medical appointments?: No Do you have trouble paying your heating and electricity bill?: No Do you have trouble taking care of your child, family member or friend?: No Do you have trouble with day-to-day activities such as bathing, preparing meals, shopping, managing finances, etc.?: No Are you currently unemployed and looking for a job?: No Are you interested in more education?: No Please select the resources that you would like help with: None Currently or been in a relationship where the following occur: No concerns reported THRIVE Score: 0 AUDIT C Alcohol Use Questionnaire (AUDIT-C) 1. How often do you have a drink containing alcohol?: Never Total Score: 0 SHANNON-7 AMB Questionnaire SHANNON-7 Date SHANNON - 7 assessed: 05/02/24 Feeling nervous, anxious, or on edge: 0 = Not at all Not being able to stop or control worryin = Not at all Worrying too much about different things: 0 = Not at all Trouble relaxin = Not at all Being so restless that it is hard to sit still: 0 = Not at all Becoming easily annoyed or irritable: 0 = Not at all Feeling afraid as if something awful might happen: 0 = Not at all Total SHANNON-7 score (0-4 normal; 5-9 mild; 10-14 moderate; 15-21 severe): 0 Source: Developed by Drs. Irwin Adrian, Teresa Pickard, Billy Linda and colleagues, with an educational janina from [employer]. Review of Systems Const Denies body aches, Denies chills, Denies fever(s), Denies headache(s) and Denies poor appetite Eyes Reports no additional complaints ENT Denies dizziness and Denies headache(s) Card Denies chest pain, Denies syncope, Denies irregular heart rhythm, Denies lightheadedness and Denies dyspnea Resp Denies cough and Denies dyspnea GI Reports no additional complaints Reports no additional complaints Musc Reports no additional complaints and Denies abnormal gait Skin/Breast Reports system reviewed and no additional complaints, except as documented Neuro Denies abnormal gait, Denies dizziness, Denies syncope and Denies headache(s) Psych Reports no additional complaints Physical exam (Primary Care) Vital Signs: Last Vital Signs Temp 97.1 F 05/02/24 13:39 Pulse 81 05/02/24 13:39 BP 110/60 05/02/24 13:39 Pulse Ox 98 05/02/24 13:39 Oxygen Delivery Method Room Air 05/02/24 13:39 BMI result Body Mass Index 23.5 Tobacco/Smoking Status: Tobacco use Status Tobacco use date assessed 05/02/24 05/02/24 13:40 Patient Tobacco Use Status Never used Tobacco 05/02/24 13:37 e-Cigarette/Vaping Use Never Used 05/02/24 13:37 PHQ-9: PHQ-9 Score PHQ-9: Total score 0 05/02/24 13:40 Depression Screening Interpretation: Negative Thrive Assessment: Date of Thrive Assessment Date Thrive assessed 05/02/24 05/02/24 13:40 Currently or been in a relationship where the following occur: No concerns reported Const General: cooperative, healthy appearing, comfortable and no acute distress Orientation/consciousness: patient oriented x3 HENMT Head: Yes normocephalic Ears: hearing grossly normal bilaterally General nose exam: Normal external nose present Eyes General: appearance normal, both eyes and all related structures Conjunctivae: conjunctivae normal Neck Neck: Yes full ROM and Yes no lymphadenopathy Resp Effort & Inspection: normal respiratory effort Auscultation: clear to auscultation bilaterally, no crackles, no rales, no rhonchi and no wheezes Cardio Rate: regular rate Rhythm: regular rhythm Skin General skin exam: no rashes or lesions noted Neuro General: patient oriented x3 Gait exam (Neuro): Normal gait present Extrem General: Yes normal to inspection, Yes full ROM and No edema Psych Affect: normal affect Attitude: cooperative Insight: Good insight present (Psych) Judgement: Good judgement present (Psych) Results AMB Hemoglobin A1c AMB Hemoglobin A1c 6.1 % Last Edit by MARK Marks on 05/02/24 13:55 Results Reviewed Results Reviewed: Laboratory Last Values Hgb A1c (Clinic) 6.1 % (4.0-6.0) H 05/02/24 13:36 Coding Level of Care Code Est Pt Level 3 (27670) Diagnoses Postlaminectomy syndrome M96.1 Hyperlipidemia LDL goal <70 E78.5 Essential hypertension I10 Pulmonary emphysema, unspecified emphysema type J43.9 COPD type: emphysema Emphysema type: unspecified Type 2 diabetes mellitus with hyperglycemia, without long-term current use of insulin E11.65 Diabetes mellitus mcc insulin use: without filler leaf cutter long use Chronic kidney disease (CKD) stage G3b/A1, moderately decreased glomerular filtration rate (GFR) between 30-44 mL/min/1.73 square meter and albuminuria creatinine ratio less than 30 mg/g N18.32 Anemia D64.9 Assessment & Plan Assessment & Plan (1) Postlaminectomy syndrome: Code(s): M96.1 - Postlaminectomy syndrome, not elsewhere classified Category: Medical Plan: Patient on 6 months as mentioned from opiates due to incorrect pill count. Continue to follow with pain management. (2) Hyperlipidemia LDL goal <70: Code(s): E78.5 - Hyperlipidemia, unspecified Category: Medical Plan: Avoid foods that are high in cholesterol such as red meat, fried foods, eggs and baked goods. Triglyceride goal of less than 150 and LDL goal of less than 70. Ordered for updated blood work (3) Essential hypertension: Code(s): I10 - Essential (primary) hypertension Category: Medical Plan: Continue on current blood pressure medication. Avoid salt intake and encourage healthy diet and regular exercise. (4) COPD (chronic obstructive pulmonary disease): Comment: This patient is well known to have chronic obstructive pulmonary disease, moderately severe. He is staying stable with the current medical regimen , except for intermittent increase in cough and mucus production. Code(s): J44.9 - Chronic obstructive pulmonary disease, unspecified Category: Medical Qualifiers: COPD type: emphysema Emphysema type: unspecified Qualified Code(s): J43.9 - Emphysema, unspecified Plan: Continue on current inhalers and continue to follow with pulmonology. (5) Type 2 diabetes mellitus with hyperglycemia: Code(s): E11.65 - Type 2 diabetes mellitus with hyperglycemia Category: Medical Qualifiers: Diabetes mellitus filler leaf cutter long insulin use: without mcc use Qualified Code(s): E11.65 - Type 2 diabetes mellitus with hyperglycemia Plan: Decrease the amount of carbohydrates such as pasta, bread, rice, and potatoes and limit the amount of sweets. Although fruits are generally healthy they should be eaten in moderation as they are still high in sugar. Hemoglobin A1c goal of less than 7%. A1c in clinic today 6.1% continue on metformin (6) Chronic kidney disease (CKD) stage G3b/A1, moderately decreased glomerular filtration rate (GFR) between 30-44 mL/min/1.73 square meter and albuminuria creatinine ratio less than 30 mg/g: Code(s): N18.32 - Chronic kidney disease, stage 3b Category: Medical Plan: Continue to avoid kidney irritants and stay well hydrated. (7) Anemia: Code(s): D64.9 - Anemia, unspecified Category: Medical Plan: Plan to restart on iron and follow up in 3 months with repeat blood work. Plan This note was constructed using voice recognition software. While every effort has been made to ensure accuracy and glass or mirror inspector, still areas may have been included sometimes these areas may affect the content or meeting of the given symptoms. Total time spent caring for the patient today was 20 minutes. This includes time spent before the visit reviewing the chart, time spent during the visit, and time spent after the visit and documentation. Orders: Orders IRON PROFILE 3 Months D64.9 - Anemia, unspecified Complete Blood Count Auto Diff 3 Months D64.9 - Anemia, unspecified, Z00.00 - Encounter for general adult medical examination without abnormal findings AMB Hemoglobin A1c Today E11.65 - Type 2 diabetes mellitus with hyperglycemia Lipid Panel 3 Months E78.00 - Pure hypercholesterolemia, unspecified
[2024-05-02 13:39] VITALS: BP 110/60; PULSE 81; TEMP 36.2; O2SAT 98; BMI 23.5
== END 2024-05-02 14:24 | disposition home or self-care (01) ==
PROVIDERS: PCP Internal Medicine
DX: I12.9 Hypertensive chronic kidney disease with stage 1 through stage 4 chronic kidney disease, or unspecified chronic kidney disease (principal); J43.9 Emphysema, unspecified; E11.65 Type 2 diabetes mellitus with hyperglycemia; N18.32 Chronic kidney disease, stage 3b; M96.1 Postlaminectomy syndrome, not elsewhere classified; E78.5 Hyperlipidemia, unspecified; D64.9 Anemia, unspecified

== ENCOUNTER → 2024-05-02 13:16 | Outpatient (BNVA) | payer MEDICARE, MEDICAID, SELFPAY | PROVIDERS: PCP Internal Medicine | DX: M96.1 Postlaminectomy syndrome, not elsewhere classified (principal); E78.5 Hyperlipidemia, unspecified; E11.65 Type 2 diabetes mellitus with hyperglycemia; J43.9 Emphysema, unspecified; I12.9 Hypertensive chronic kidney disease with stage 1 through stage 4 chronic kidney disease, or unspecified chronic kidney disease; E11.22 Type 2 diabetes mellitus with diabetic chronic kidney disease; N18.32 Chronic kidney disease, stage 3b | CPT/HCPCS: 83036; 99212 ==

== ENCOUNTER 2024-05-09 13:03 | Outpatient (AMB) | payer MEDICARE, MEDICAID, SELFPAY ==
--- NOTE | 2024-05-09 13:24 | MHC.OFFVISCO ---
Intake Intake Visit Reasons: Anticoagulation Allergies doxycycline Allergy (Intermediate, Verified 05/09/24 13:16) Nausea and Vomiting Medication List - Last Reconciled 05/09/24 by Fouzia Mcginnis RN amlodipine 10 mg PO DAILY ascorbic acid (vitamin C) 1 g PO DAILY atorvastatin 40 mg PO DAILY blood pressure monitor (Blood Pressure Kit) As directed blood sugar diagnostic ([employer] Verio test strips) one time daily blood-glucose meter ([employer] Verio Meter) To check blood glucose once daily budesonide-formoterol 160-4.5 mcg/actuation (Symbicort) 2 puffs PO BID cholecalciferol (vitamin D3) 25 mcg PO DAILY cilostazol 100 mg PO BID cyanocobalamin (vitamin B-12) (Vitamin B-12) 250 mcg PO DAILY ferrous sulfate (Feosol) 325 mg PO DAILY fluticasone propionate 50 mcg/actuation 2 sprays intranasal DAILY gabapentin 300 mg PO DAILY 90 days [garlic clove 1 dose PO NEEDED] ipratropium-albuterol 0.5 mg-3 mg(2.5 mg base)/3 mL 3 mL inhalation Q6H lancets ([employer] Delica Plus Lancet) To test bg daily lancets As directed metformin 500 mg PO DAILY metoprolol succinate ER 25 mg PO DAILY naloxone 4 mg/actuation (Narcan) 4 mg intranasal Q2M 1 day oxycodone-acetaminophen 5-325 mg 1 tab PO Q8H PRN 30 days Ventolin HFA 90 mcg/actuation (albuterol sulfate) 2 puffs inhalation Q4-6H PRN NS walker (Ultra-Light Rollator [facility]) As directed, ambulate at all times with walker warfarin 5 mg See Protocol PO DAILY warfarin 2.5 mg See Protocol PO DAILY 90 days Nursing Note INR: 2.2 in therapeutic range of 2-3 Medications and supplements reviewed No changes in health, diet, medications, or supplements, Denies any signs and symptoms of bleeding or bruising or clotting. Bleeding, bruising, clotting discussed Nutritional guidance given Dose: 5mg X 4 days and 2.5mg X 3 days (Mon, Wed & Fri) F/U INR: 4 weeks Patient verbalizes understanding of instructions with read back given Anti-Coag Initial Assessment Social Hx Patient Tobacco Use Status: Never used Tobacco alcohol intake: former Alcohol intake frequency: does not drink Coding Level of Care Code Est Patient Level 1 Diagnoses Current use of anticoagulant therapy Z79.01 Results AMB INR Fingerstick AMB INR Fingerstick 2.2 Last Edit by Fouzia Mcginnis RN on 05/09/24 13:23 interface delay Assessment & Plan Assessment & Plan (1) Current use of anticoagulant therapy: Code(s): Z79.01 - custodial (current) 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
[2024-05-09 13:29] LABS: ~PT, ~INR - Anti Coag Clinic 2.2 (0.9-1.1)
== END 2024-05-09 13:28 | disposition home or self-care (01) ==
LOC: HO.ACS 13:03
PROVIDERS: PCP Internal Medicine; Visit Provider Internal Medicine
DX: Z79.01 Long term (current) use of anticoagulants (principal)

== ENCOUNTER → 2024-05-09 13:03 | Outpatient (BNVA) | payer MEDICARE, MEDICAID, SELFPAY | PROVIDERS: PCP Internal Medicine; Visit Provider Internal Medicine | DX: I82.503 Chronic embolism and thrombosis of unspecified deep veins of lower extremity, bilateral (principal); Z79.01 Long term (current) use of anticoagulants; Z51.81 Encounter for therapeutic drug level monitoring | CPT/HCPCS: 85610; 99211 ==

== ENCOUNTER 2024-05-14 15:34 | Emergency (ER) | payer MEDICARE, MEDICAID, SELFPAY ==
--- NOTE | 2024-05-14 | ECG_ITS ---
Test Reason : CHEST PAIN Blood Pressure : */* mmHG Vent. Rate : 72 BPM Atrial Rate : 72 BPM P-R Int : 164 ms QRS Dur : 100 ms QT Int : 382 ms P-R-T Axes : -20 -40 23 degrees QTcB Int : 418 ms Normal sinus rhythm Left axis deviation Moderate voltage criteria for LVH, may be normal variant ( R in aVL , [place] product ) Abnormal ECG When compared with ECG of 12-Apr-2024 11:39, NV interval has decreased Referred By: Generic ED Physician Electronically Signed By: ANDRZEJ SMITH MD
--- NOTE | ~2024-05-14 | XR_ITS ---
CLINICAL HISTORY: pain Chest Radiograph Comparison: 04/12/24 and 03/17/23 Findings: No cardiomegaly. Normal mediastinal contours. Unchanged mild elevation of the left hemidiaphragm. No pneumothorax. No opacity. No pleural effusion. Normal upper abdomen. No acute fracture. Impression: No acute findings. This document has been electronically signed by: Alla Chand MD on 05/14/2024 17:17:48
[2024-05-14 15:41] VITALS: BP 126/76; PULSE 70; O2SAT 96
[2024-05-14 15:45] VITALS: BP 143/73; PULSE 64; RESP 16; TEMP 37.2; O2SAT 97
[2024-05-14 15:51] VITALS: BP 143/73; PULSE 67; RESP 18; O2SAT 98; BMI 23.3
--- NOTE | 2024-05-14 16:03 | PC.NURSE ---
via group counselor patient reports that he never told ems that he had chest pain. states that he was sitting on the couch watching tv and he had blurry vision and felt dizzy so he told his son to call in ambulance. upon arrival patient states symptoms have resolved. states similar episode happened about 5 mothns ago but he did not see a dr about it. Reports 2/10 right arm pain from sleeping on the arm last night . reports pmh of valve replacement. hands grasps strong and equal biltat. arm strength 5/5 bilaterally. Perrla. Denies any current blurry vision or dizziness
[2024-05-14 16:33] LABS: PLT CLUMP 1
[2024-05-14 16:35] LABS: Hematocrit 34.7 % (42.0-52.0); Hemoglobin 11.5 g/dl (14.0-18.0); Mean Corpuscular HGB Conc 33.1 g/dl (31.0-36.0); Mean Corpuscular Hemoglobin 29.1 pg (27.0-33.0); Mean Corpuscular Volume 87.8 fL (80.0-98.0); Mean Platelet Volume 11.4 fL (9.4-12.4); Red Blood Count 3.95 X10*6/uL (4.60-5.80); Red Cell Distribution Width 14.6 % (11.0-16.0)
[2024-05-14 16:39] LABS: WBC ABN SCTR FOR CBC 1
[2024-05-14 16:50] LABS: Alanine Aminotransferase 13 U/L (0-40); Albumin Level 4.1 g/dL (3.5-5.0); Alkaline Phosphatase 79 U/L (39-117); Anion Gap 11 (12-20); Aspartate Amino Transferase 18 U/L (5-37); Bilirubin Total 0.7 mg/dL (0.0-1.0); Blood Urea Nitrogen 19 mg/dL (9-16); Calcium 9.2 mg/dL (8.4-10.2); Carbon Dioxide 23 mmol/L (22-29); Chloride 108 mmol/L (96-108); Creatinine Clr Calc Pharmacy 52.9; Estimated Glomerular Filt Rate > 60; Glucose Random 127 mg/dL (60-115); Lipase 10 U/L (8-78); Sodium 137 mmol/L (135-145); Total Protein 6.9 g/dL (6.5-8.0)
[2024-05-14 16:58] LABS: Troponin-I High Sensitivity 10.4 ng/L (<3.5-35.0)
[2024-05-14 17:13] LABS: Band Neutrophils Percent 0 % (3-5); Eosinophils Percent Manual 7 % (0-4); Lymphocytes Percent Manual 23 % (20-40); Monocytes Percent Manual 7 % (2-11); Neutrophils Percent Manual 63 % (45-73); RBC Morphology NOTED
[2024-05-14 17:14] LABS: Acanthocytes 2+ (3-5) /OIF; Large Platelet PRESENT; Ovalocytes 1+ (5-14) /OIF; Platelet Estimate SLIGHTLY DECREASED (NORMAL); Platelet Morphology Comment NORMAL; Schistocytes 2+ (3-5) /OIF
[2024-05-14 17:15] LABS: Burr Cells 2+ (3-5) /OIF; Toxic Vacuolation PRESENT
[2024-05-14 17:16] LABS: Eosinophils Absolute Manual 0.4 X10*3/uL (0.0-0.4); Lymphocytes Absolute Manual 1.4 X10*3/uL (1.2-4.9); Monocytes Absolute Manual 0.4 X10*3/uL (0.1-1.2); Neutrophils Absolute Manual 3.8 X10*3/uL (2.0-8.3); Platelet Count 137 X10*3/uL (160-400); White Blood Count 6.1 X10*3/uL (4.8-10.8)
--- NOTE | 2024-05-14 17:29 | ED_ITS ---
HPI - Chest Pain General Chief Complaint: Chest Pain Stated Complaint: chest pain Time Seen by Provider: 05/14/24 16:09 Source: patient and family Limitations: language barrier History of Present Illness ED Provider: Shantel Gifford PA-C HPI narrative: 83-year-old male with a history of hypertension, hyperlipidemia, diabetes, chronic kidney disease, COPD, DVT on warfarin, peripheral vascular disease, who presents with chest pain prior to arrival. Patient and his son are both poor historians, from their report, the patient had generalized chest discomfort prior to EMS arrival, it has since resolved. No associated shortness of breath diaphoresis, nausea vomiting. No recent cough or cold symptoms, no fevers. Related Data Home Medications ?Medication ?Instructions ?Recorded ?Confirmed lancets 28 gauge #100 ea 01/03/20 05/09/24 ascorbic acid (vitamin C) 1,000 mg 1 g PO DAILY 01/27/20 05/09/24 tablet cholecalciferol (vitamin D3) 25 25 mcg PO DAILY 01/27/20 05/09/24 mcg (1,000 unit) capsule garlic clove 1 dose PO NEEDED 04/25/22 05/09/24 Previous Rx's ?Medication ?Instructions ?Recorded Ventolin HFA 90 mcg/actuation 2 puff inhalation Q4-6H PRN for 08/13/20 aerosol inhaler (albuterol sulfate) wheezing #54 grams walker (Ultra-Light Rollator misc) #1 ea 06/11/21 ipratropium 0.5 mg-albuterol 3 mg 3 ml inhalation Q6H #180 mL 07/22/21 (2.5 mg base)/3 mL nebulization soln blood-glucose meter (OneTouch #1 ea 12/25/21 Verio Meter) lancets 30 gauge (OneTouch Delica #100 ea 01/08/22 Plus Lancet) warfarin 2.5 mg tablet 2.5 mg PO DAILY 90 days #90 tabs 05/28/22 naloxone 4 mg/actuation nasal 4 mg intranasal Q2M 1 day #2 ea 01/27/23 spray (Narcan) gabapentin 300 mg capsule 300 mg PO DAILY 90 days #90 caps 05/18/23 blood pressure monitor (Blood #1 ea 06/18/23 Pressure Kit) atorvastatin 40 mg tablet 40 mg PO DAILY #90 tabs 07/06/23 metformin 500 mg tablet 500 mg PO DAILY #90 tabs 08/09/23 budesonide-formoterol HFA 160 2 puff PO BID #30.6 ea 09/04/23 mcg-4.5 mcg/actuation aerosol inhaler (Symbicort) fluticasone propionate 50 2 spray intranasal DAILY #48 mL 09/04/23 mcg/actuation nasal spray,suspension warfarin 5 mg tablet 5 mg PO DAILY #90 tabs 11/08/23 cilostazol 100 mg tablet 100 mg PO BID #180 tabs 12/25/23 blood sugar diagnostic (OneTouch #50 ea 02/24/24 Verio test strips) cyanocobalamin (vitamin B-12) 250 250 mcg PO DAILY #90 tabs 03/27/24 mcg tablet (Vitamin B-12) metoprolol succinate 25 mg 25 mg PO DAILY #90 tabs 03/27/24 tablet,extended release 24 hr oxycodone-acetaminophen 5 mg-325 1 tab PO Q8H PRN pain 30 days #90 04/04/24 mg tablet tabs ferrous sulfate 325 mg (65 mg 325 mg PO DAILY #90 tabs 05/02/24 iron) tablet (Feosol) amlodipine 10 mg tablet 10 mg PO DAILY #90 tabs 05/07/24 Allergies Allergy/AdvReac Type Severity Reaction Status Date / Time doxycycline Allergy Intermediate Nausea and Verified 05/14/24 15:52 Vomiting Review of Systems 2 Review of Systems: Yes all other systems are reviewed and are negative Constitutional: Constitutional: Denies fatigue and Denies fever(s) Cardiovascular: Cardiovascular: Reports chest pain and Denies dyspnea Respiratory: Respiratory: Denies chest congestion, Denies cough, Denies dyspnea and Denies wheezing Gastrointestinal: Gastrointestinal: Denies abdominal pain, Denies nausea and Denies vomiting Endocrine: Endocrine: Denies fatigue Allergic/Immunologic: Allergic/Immunologic: Denies wheezing PMFSH Past Medical History Attestation statement: The following information was validated with the patient. 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, without long-term current use of insulin Effusion of right knee joint Contusion of right knee Hemarthrosis involving knee joint Left shoulder pain Appetite impaired Hearing difficulty Weight loss Cough Non-rheumatic aortic stenosis Chronic pain syndrome Postlaminectomy syndrome Diabetic polyneuropathy Gastric carcinoma Peripheral vascular disease Pneumonia Hyperlipidemia LDL goal <70 COPD (chronic obstructive pulmonary disease) Type 2 diabetes mellitus with hyperglycemia Vitamin B12 deficiency Bronchiectasis Moderate aortic stenosis Compression fracture of L1 lumbar vertebra Recurrent deep vein thrombosis (DVT) Peripheral vascular disease History of gastric cancer BPH (benign prostatic hyperplasia) COPD (chronic obstructive pulmonary disease) Joint pain Surgical History History of colonoscopy Amputation of toe of left foot History of gastrectomy Family History Family History Father Diabetes Cancer Mother Diabetes Brother Lung cancer Social History Social History Household Members: None Household Members Other:: lives alone son checks by daily Housing: Apartment Are you a primary critical care nurse specialist to a significant other at home: No Do you presently have visiting nurse or other home services: No Alcohol intake: former Year quit: 1970 Patient Tobacco Use Status: Never used Tobacco Smoked in Last 30 Days: No e-Cigarette/Vaping Use: Never Used Second Hand Smoke Exposure: No Use of substances other than those prescribed or required for medical reasons: No Advance Directives: No Advance Directives Information Provided: No Do you have a plan to hurt others: No Plan service: No Current occupational status: retired Cognitive needs: Yes (walker/power chair) Hearing needs: No Vision needs: Yes (reading) Physical Exam 2 Vital Signs: Vital Signs: Last Vital Signs Temp 98.9 F 05/14/24 15:45 Pulse 67 05/14/24 15:51 Resp 18 05/14/24 15:51 BP 143/73 H 05/14/24 15:51 Pulse Ox 98 05/14/24 15:51 O2 Del Method Room Air 05/14/24 15:51 BMI result Body Mass Index 23.3 Const: Other: Alert well-appearing Orientation/consciousness: patient oriented x3 Resp: Other: Lungs clear to auscultation Effort & Inspection: normal respiratory effort Cardio: Other: Normal peripheral perfusion Skin: Other: Warm dry no rash Neuro: General: patient oriented x3, no focal motor deficits and CN's II-XI intact bilaterally Psych: Other: Cooperative Medical Decision Making Medical Decision Making MDM Narrative: 83-year-old male with a history of hypertension, hyperlipidemia, diabetes, chronic kidney disease, COPD, DVT on warfarin, peripheral vascular disease, who presents with chest pain prior to arrival. Patient and his son are both poor historians, from their report, the patient had generalized chest discomfort prior to EMS arrival, it has since resolved. No associated shortness of breath diaphoresis, nausea vomiting. No recent cough or cold symptoms, no fevers. Problem: Age, diabetes, hypertension, hyperlipidemia, COPD, DVT History: Per patient and his son I have considered the following differential diagnoses: ACS, PE, COPD exacerbation, pneumonia, viral syndrome Plan: Patient here with vague chest discomfort that is atypical, it was brief and resolved pre arrival. He has all the risk factors for coronary artery disease, ACS clearly is considered, we will be screening basic labs, cardiac enzymes EKG and chest x-ray. Thought about PE, he has a history of DVT, however he is not hypoxic he is not tachycardic, he has no shortness of breath, and again chest pain resolved. He does not have any infectious respiratory symptoms to suggest viral syndrome or pneumonia, we will add a viral panel. He has not had any active cough or wheezing, his respiratory exam is normal, this is not consistent with COPD exacerbation. I have independently reviewed the following tests: Labs: No leukocytosis, stable anemia, renal function at baseline no electrolyte abnormality, troponin appears to be at baseline at 10.4, we will obtain a delta troponin given he has numerous risk factors for coronary artery disease, viral panel, delta trop 5.5 EKG: Normal sinus rhythm, rate of 72, no ischemic changes no ectopy, QTC 418 Chest x-ray: Findings: No cardiomegaly. Normal mediastinal contours. Unchanged mild elevation of the left hemidiaphragm. No pneumothorax. No opacity. No pleural effusion. Normal upper abdomen. No acute fracture. Impression: No acute findings. Lab Data 05/14/24 16:26 05/14/24 16:26 Labs: Lab Results 05/14/24 05/14/24 Range/Units 16:26 17:30 WBC 6.1 (4.8-10.8) X10*3/uL RBC 3.95 L (4.60-5.80) X10*6/uL Hgb 11.5 L (14.0-18.0) g/dl Hct 34.7 L (42.0-52.0) % MCV 87.8 (80.0-98.0) fL MCH 29.1 (27.0-33.0) pg MCHC 33.1 (31.0-36.0) g/dl RDW 14.6 (11.0-16.0) % Plt Count 137 L (160-400) X10*3/uL MPV 11.4 (9.4-12.4) fL Immature Gran % (Auto) Cancelled Neut % (Auto) Cancelled Lymph % (Auto) Cancelled Terry % (Auto) Cancelled Eos % (Auto) Cancelled Baso % (Auto) Cancelled Lymph # (Auto) Cancelled Terry # (Auto) Cancelled Eos # (Auto) Cancelled Baso # (Auto) Cancelled Abs Immat Gran (auto) Cancelled Absolute Neuts (auto) Cancelled Absolute Nucleated RBC 0.000 (0.0-0.012) X10*3/uL Nucleated RBC % (auto) 0.0 (0.0-0.2) /100WBC Neutrophils % (Manual) 63 (45-73) % Band Neutrophils % 0 L (3-5) % Lymphocytes % (Manual) 23 (20-40) % Monocytes % (Manual) 7 (2-11) % Eosinophils % (Manual) 7 H (0-4) % Abs Neuts (Manual) 3.8 (2.0-8.3) X10*3/uL Lymphocytes # (Manual) 1.4 (1.2-4.9) X10*3/uL Monocytes # (Manual) 0.4 (0.1-1.2) X10*3/uL Eosinophils # (Manual) 0.4 (0.0-0.4) X10*3/uL Toxic Vacuolation PRESENT Platelet Estimate SLIGHTLY DECREASED (NORMAL) Large Platelets PRESENT Plt Morphology Comment NORMAL RBC Morphology NOTED Ovalocytes 1+ (5-14) /OIF [place] Cells 2+ (3-5) /OIF Acanthocytes (Spur) 2+ (3-5) /OIF Schistocytes 2+ (3-5) /OIF Sodium 137 (135-145) mmol/L Potassium 5.0 (3.3-5.1) mmol/L Chloride 108 (96-108) mmol/L Carbon Dioxide 23 (22-29) mmol/L Anion Gap 11 L (12-20) BUN 19 H (9-16) mg/dL Creatinine 1.12 (0.5-1.4) mg/dL Estim Creat Clear Calc 52.9 Estimated GFR > 60 Random Glucose 127 H (60-115) mg/dL Calcium 9.2 (8.4-10.2) mg/dL Total Bilirubin 0.7 (0.0-1.0) mg/dL AST 18 (5-37) U/L ALT 13 (0-40) U/L Alkaline Phosphatase 79 (39-117) U/L Troponin I High Sens 10.4 5.5 (<3.5-35.0) ng/L Total Protein 6.9 (6.5-8.0) g/dL Albumin 4.1 (3.5-5.0) g/dL Lipase 10 (8-78) U/L Discharge Plan Discharge Clinical Impression: Chest pain Patient Disposition: Home, Self-Care Instructions: Noncardiac Chest Pain (ED) Additional Instructions: The chest discomfort that you experienced today is not related to your heart. Screening labs including 2 cardiac enzymes were obtained and everything is normal. There were no concerning changes on the EKG, and the chest x-ray is clear. Continue to follow up with your primary care provider as needed. Prescriptions: No Action albuterol sulfate [Ventolin HFA] 90 mcg/actuation HFA aerosol inhaler 2 puff inhalation Q4-6H PRN (Reason: for wheezing) Qty: 54 1RF ipratropium-albuterol 0.5 mg-3 mg(2.5 mg base)/3 mL solution for nebulization 3 ml inhalation Q6H Qty: 180 1RF (DME) blood-glucose meter [OneTouch Verio Meter] Misc See Rx Instructions .ROUTE .MEDSUPPLY Qty: 1 0RF Rx Instructions: To check blood glucose once daily (DME) lancets [OneTouch Delica Plus Lancet] 30 gauge misc See Rx Instructions .ROUTE .MEDSUPPLY Qty: 100 3RF Rx Instructions: To test bg daily warfarin 2.5 mg tablet 2.5 mg PO DAILY 90 Days Qty: 90 2RF Protocol: Dose Management Condition: Thursday (Week One) Dose/Route: 5 mg Instruction: 1 x 5 mg tablet Condition: Thursday Dose/Route: 2.5 mg Instruction: 1 x 2.5 mg tablet Condition: Thursday Dose/Route: 5 mg Instruction: 1 x 5 mg tablet Condition: Thursday Dose/Route: 2.5 mg Instruction: 1 x 2.5 mg tablet Condition: Dose/Route: 5 mg Instruction: 1 x 5 mg tablet Condition: Thursday Dose/Route: 2.5 mg Instruction: 1 x 2.5 mg tablet Condition: Thursday Dose/Route: 5 mg Instruction: 1 x 5 mg tablet Condition: Thursday ( Two) Dose/Route: 5 mg Instruction: 1 x 5 mg tablet Condition: Thursday Dose/Route: 2.5 mg Instruction: 1 x 2.5 mg tablet Condition: Thursday Dose/Route: 5 mg Instruction: 1 x 5 mg tablet Condition: Thursday Dose/Route: 2.5 mg Instruction: 1 x 2.5 mg tablet Condition: Dose/Route: 5 mg Instruction: 1 x 5 mg tablet Condition: Thursday Dose/Route: 2.5 mg Instruction: 1 x 2.5 mg tablet Condition: Thursday Dose/Route: 5 mg Instruction: 1 x 5 mg tablet Protocol Text: Adjustment Start Date: Thursday05/09/24 INR Value: 2.2 INR Date: 05/09/24 Recheck Date: 06/06/24 naloxone [Narcan] 4 mg/actuation spray,non-aerosol 4 mg intranasal Q2M 1 Days Qty: 2 1RF Rx Instructions: spray 1 dose into ONE nostril; alternate nostrils w each dose until help arrives gabapentin 300 mg capsule 300 mg PO DAILY 90 Days Qty: 90 3RF atorvastatin 40 mg tablet 40 mg PO DAILY Qty: 90 3RF metformin 500 mg tablet 500 mg PO DAILY Qty: 90 3RF fluticasone propionate 50 mcg/actuation spray,suspension 2 spray intranasal DAILY Qty: 48 2RF budesonide-formoterol [Symbicort] 160-4.5 mcg/actuation HFA aerosol inhaler 2 puff PO BID Qty: 30.6 6RF warfarin 5 mg tablet 5 mg PO DAILY Qty: 90 3RF Protocol: Dose Management Condition: Thursday (Week One) Dose/Route: 5 mg Instruction: 1 x 5 mg tablet Condition: Thursday Dose/Route: 2.5 mg Instruction: 1 x 2.5 mg tablet Condition: Thursday Dose/Route: 5 mg Instruction: 1 x 5 mg tablet Condition: Thursday Dose/Route: 2.5 mg Instruction: 1 x 2.5 mg tablet Condition: Dose/Route: 5 mg Instruction: 1 x 5 mg tablet Condition: Thursday Dose/Route: 2.5 mg Instruction: 1 x 2.5 mg tablet Condition: Thursday Dose/Route: 5 mg Instruction: 1 x 5 mg tablet Condition: Thursday (Week Two) Dose/Route: 5 mg Instruction: 1 x 5 mg tablet Condition: Thursday Dose/Route: 2.5 mg Instruction: 1 x 2.5 mg tablet Condition: Thursday Dose/Route: 5 mg Instruction: 1 x 5 mg tablet Condition: Thursday Dose/Route: 2.5 mg Instruction: 1 x 2.5 mg tablet Condition: Dose/Route: 5 mg Instruction: 1 x 5 mg tablet Condition: Thursday Dose/Route: 2.5 mg Instruction: 1 x 2.5 mg tablet Condition: Thursday Dose/Route: 5 mg Instruction: 1 x 5 mg tablet Protocol Text: Adjustment Start Date: Thursday05/09/24 INR Value: 2.2 INR Date: 05/09/24 Recheck Date: 06/06/24 cilostazol 100 mg tablet 100 mg PO BID Qty: 180 3RF (DME) OneTouch Verio test strips Strip See Rx Instructions .ROUTE .MEDSUPPLY Qty: 50 11RF Rx Instructions: one time daily cyanocobalamin (vitamin B-12) [Vitamin B-12] 250 mcg tablet 250 mcg PO DAILY Qty: 90 3RF metoprolol succinate 25 mg tablet extended release 24 hr 25 mg PO DAILY Qty: 90 0RF amlodipine 10 mg tablet 10 mg PO DAILY Qty: 90 2RF cholecalciferol (vitamin D3) 25 mcg (1,000 unit) capsule 25 mcg PO DAILY ascorbic acid (vitamin C) 1,000 mg tablet 1 g PO DAILY (DME) Ultra-Light Rollator Misc See Rx Instructions .Route Qty: 1 0RF Rx Instructions: As directed, ambulate at all times with walker (DME) blood pressure monitor [Blood Pressure Kit] Kit See Rx Instructions .ROUTE .MEDSUPPLY Qty: 1 0RF Rx Instructions: As directed (DME) lancets 28 gauge misc See Rx Instructions topical DAILY Qty: 100 Rx Instructions: As directed garlic clove 1 unit 1 dose PO NEEDED Patient Comments: pt eats one clove of garlic daily ferrous sulfate [Feosol] 325 mg (65 mg iron) tablet 325 mg PO DAILY Qty: 90 2RF oxycodone-acetaminophen 5-325 mg tablet 1 tab PO Q8H PRN (Reason: pain) 30 Days Qty: 90 0RF Rx Instructions: Partial Fill only upon patient request. Print Language: [place]al[place]
[2024-05-14 17:58] LABS: Troponin-I High Sensitivity 5.5 ng/L (<3.5-35.0)
[2024-05-14 18:23] VITALS: BP 143/73; PULSE 67; RESP 18; TEMP 37; O2SAT 98
== END 2024-05-14 18:42 | disposition home or self-care (01) ==
PROVIDERS: Physician Assistant Medical; Emergency Provider Emergency Medicine Emergency Medical Services
DX: R07.9 Chest pain, unspecified (principal); E11.22 Type 2 diabetes mellitus with diabetic chronic kidney disease; I12.9 Hypertensive chronic kidney disease with stage 1 through stage 4 chronic kidney disease, or unspecified chronic kidney disease; N18.9 Chronic kidney disease, unspecified; Z86.718 Personal history of other venous thrombosis and embolism; Z79.01 Long term (current) use of anticoagulants; Z79.02 Long term (current) use of antithrombotics/antiplatelets; Z79.899 Other long term (current) drug therapy; Z79.84 Long term (current) use of oral hypoglycemic drugs
CPT/HCPCS: 36415; 71045; 80053; 83690; 84484; 85007; 85025; 85027; 93005; 99283; 99284

== ENCOUNTER → 2024-05-14 15:49 | Outpatient (BNV) | payer MEDICARE, MEDICAID, SELFPAY | PROVIDERS: Emergency Provider Emergency Medicine Emergency Medical Services; Visit Provider Internal Medicine Cardiovascular Disease | DX: R94.31 Abnormal electrocardiogram [ECG] [EKG] (principal); R07.9 Chest pain, unspecified | CPT/HCPCS: 93010 ==

== ENCOUNTER → 2024-05-14 16:09 | Outpatient (BNV) | payer MEDICARE, MEDICAID, SELFPAY | PROVIDERS: Emergency Provider Emergency Medicine Emergency Medical Services; Visit Provider Radiology Diagnostic Radiology | DX: R07.9 Chest pain, unspecified (principal) | CPT/HCPCS: 71045 ==

== ENCOUNTER → 2024-06-02 12:25 | Outpatient (REF) | payer MEDICARE, MEDICAID, SELFPAY ==
--- NOTE | 2024-06-02 12:36 | CA_ITS ---
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 Normal LV ejection fraction 55-60% with mild LVH with grade 2 diastolic dysfunction 2. Mildly dilated left atrium 3. Moderate aortic stenosis and mild aortic regurgitation 4. Mildly dilated ascending aorta at 4.2 cm 5. Normal RV systolic pressure 6. No gross pericardial effusion Findings Left Ventricle Normal left ventricular size and systolic function. There is mildly increased left ventricular wall thickness. The visually estimated ejection fraction is between 55-60%. Spectral Doppler is indicative of a pseudonormal filling pattern. E/E prime ratio is >15, consistent with elevated filling pressures. Evidence suggests grade II (moderate) diastolic dysfunction. Right Ventricle Normal right ventricular cavity size and systolic function. Atria The left atrium is mildly dilated. There is no evidence of interatrial shunt. The right atrium is normal in size. Aortic Valve There is moderate calcification of the aortic valve. There is moderate thickening of the aortic valve. There is moderate aortic valve stenosis. The peak aortic gradient is 53 mmHg.The mean gradient is 32 mmHg. The aortic valve area is 1.23 cm2. There is mild aortic valve regurgitation. Mitral Valve There is mild anterior and moderate posterior mitral leaflet thickening. There is moderate mitral annular calcification. There is mild mitral valve regurgitation. There is no mitral valve stenosis. Pulmonic Valve The pulmonic valve was not well visualized. Tricuspid Valve Likely normal tricuspid valve structure and function. The right ventricular systolic pressure is 24 mmHg. Normal right atrial pressure. There is no evidence of pulmonary hypertension. Great Vessels The pulmonary artery was not well visualized. There is mild dilatation of the ascending aorta measuring 4.20 cm. Small plaque is seen in the sino tubular ridge. Venous The inferior vena cava is normal in size and collapses greater than 50% with inspiration. Pericardium/Pleural There is no evidence of pericardial effusion. Prior Study Comparison No significant change compared to prior study dated: 05/22/2023. Measurements 2D Linear Measurements IVSd: 1.43 0.6-0.9/0.6-1.0 cm LVIDd: 4.31 3.9-5.3/4.2-5.9 cm LVIDd Index: 2.30 2.4-3.2/2.2-3.1 cm/m2 LVIDs: 3.33 2.0-3.6 cm LVPWd: 1.22 0.7-1.1 cm LA Diam: 3.40 2.7-3.8/3.0-4.0 cm LAIDs Index: 1.82 1.5-2.3 cm/m2 LV Mass: 227.99 67-162/88-224 g LV Mass Index: 121.92 43-95/49-115 g/m2 LVOT Diam: 2.20 3.0+(-)1.3 cm 2D Systolic Function EF 4C: 58.20 >55% EF 2C: 57.80 >55% EF BiP: 57.20 >55% Mitral Valve MV VTI: 0.53 MV Pk Yousuf: 1.52 MV Mn Yousuf: 0.99 MV Pk Grad: 9.00 MV Mn Grad: 4.00 MV Pk E: 1.04 MV PK A: 1.01 MV Decel Time: 359.00 E/A: 1.00 E'Lateral: 4.57 E'Medial: 4.06 E/E' Med: 25.60 E/E' Lat: 22.80 PHT: 105.00 MVA PHT: 2.10 MVA Continuity: 1.81 Decel [place]: 3.85 Aortic Valve AoV Pk Yousuf: 3.65 AoV Mn Yousuf: 2.72 AoV VTI: 0.78 AoV Pk Grad: 53.00 Aov Mn Grad: 32.00 MOISE Cont.VTI: 1.23 LVOT LVOT Pk Yousuf: 1.07 LVOT Mn Yousuf: 0.70 LVOT VTI: 0.25 LVOT Pk Grad: 5.00 LVOT Mn Grad: 2.00 LVOT Diam: 2.20 LVOT Area: 3.80 Diastolic Function MV Pk E: 1.04 MV Pk A: 1.01 E/A: 1.00 E'Medial: 4.06 E/E' Med: 25.60 E' Laterial: 4.57 E/E' Lat: 22.80 Right Ventricle TAPSE (mm): 21.10 TVS' Yousuf: 13.90 Tricuspid Valve TR Pk Yousuf: 2.27 TR Pk Grad: 21.00 RA Press: 3.00 RVSP: 24.00 Great Vessels Aorta Sinus of Valsalva: 3.99 2.0-3.5 cm Ao Asc: 4.20 2.1-3.4 cm Updated in Other Vendor System with Status of Final Dedrick Ray MD electronically signed on 06/03/2024 4:32:53 PM with status of Final
== END ==
LOC: HO.CARD 12:25
PROVIDERS: PCP Internal Medicine; Visit Provider Internal Medicine
DX: I35.0 Nonrheumatic aortic (valve) stenosis (principal)
CPT/HCPCS: 93306

== ENCOUNTER → 2024-06-02 12:36 | Outpatient (BNV) | payer MEDICARE, MEDICAID, SELFPAY | PROVIDERS: PCP Internal Medicine; Visit Provider Internal Medicine Cardiovascular Disease | DX: I35.0 Nonrheumatic aortic (valve) stenosis (principal) | CPT/HCPCS: 93306 ==

== ENCOUNTER 2024-06-06 12:58 | Outpatient (AMB) | payer MEDICARE, MEDICAID, SELFPAY ==
--- NOTE | 2024-06-06 13:16 | MHC.OFFVISCO ---
Intake Intake Visit Reasons: Anticoagulation Allergies doxycycline Allergy (Intermediate, Verified 06/06/24 13:04) Nausea and Vomiting Medication List - Last Reconciled 06/06/24 by Fouzia Mcginnis RN amlodipine 10 mg PO DAILY ascorbic acid (vitamin C) 1 g PO DAILY atorvastatin 40 mg PO DAILY blood pressure monitor (Blood Pressure Kit) As directed blood sugar diagnostic (OneTouch Verio test strips) one time daily blood-glucose meter ([employer] Verio Meter) To check blood glucose once daily budesonide-formoterol 160-4.5 mcg/actuation (Symbicort) 2 puffs PO BID cholecalciferol (vitamin D3) 25 mcg PO DAILY cilostazol 100 mg PO BID cyanocobalamin (vitamin B-12) (Vitamin B-12) 250 mcg PO DAILY ferrous sulfate (Feosol) 325 mg PO DAILY fluticasone propionate 50 mcg/actuation 2 sprays intranasal DAILY gabapentin 300 mg PO DAILY 90 days [garlic clove 1 dose PO NEEDED] ipratropium-albuterol 0.5 mg-3 mg(2.5 mg base)/3 mL 3 mL inhalation Q6H lancets ([employer] Delica Plus Lancet) To test bg daily lancets As directed metformin 500 mg PO DAILY metoprolol succinate ER 25 mg PO DAILY naloxone 4 mg/actuation (Narcan) 4 mg intranasal Q2M 1 day oxycodone-acetaminophen 5-325 mg 1 tab PO Q8H PRN 30 days Ventolin HFA 90 mcg/actuation (albuterol sulfate) 2 puffs inhalation Q4-6H PRN NS walker (Ultra-Light Rollator [facility]) As directed, ambulate at all times with walker warfarin 5 mg See Protocol PO DAILY warfarin 2.5 mg See Protocol PO DAILY 90 days Nursing Note INR: 2.2 in therapeutic range of 2-3 Medications and supplements reviewed No changes in health, diet, medications, or supplements, Denies any signs and symptoms of bleeding or bruising or clotting. Bleeding, bruising, clotting discussed Nutritional guidance given Dose: 5mg X 4 days and 2.5mg X 3 days (M/W/F) F/U INR: 4 weeks Patient verbalizes understanding of instructions given Anti-Coag Initial Assessment Social Hx Patient Tobacco Use Status: Never used Tobacco alcohol intake: former Alcohol intake frequency: does not drink Coding Level of Care Code Est Patient Level 1 Diagnoses Current use of anticoagulant therapy Z79.01 Results AMB INR Fingerstick AMB INR Fingerstick 2.2 Last Edit by Fouzia Mcginnis RN on 06/06/24 13:16 interface delay Assessment & Plan Assessment & Plan (1) Current use of anticoagulant therapy: Code(s): 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
[2024-06-06 13:20] LABS: Prothrombin Time Whole Bld POC 26.5 sec (11.1-13.5); ~PT, ~INR - Anti Coag Clinic 2.2 (0.9-1.1)
== END 2024-06-06 13:22 | disposition home or self-care (01) ==
LOC: HO.ACS 12:58
PROVIDERS: PCP Internal Medicine; Visit Provider Internal Medicine Medical Oncology
DX: Z79.01 Long term (current) use of anticoagulants (principal)

== ENCOUNTER → 2024-06-06 12:58 | Outpatient (BNVA) | payer MEDICARE, MEDICAID, SELFPAY | PROVIDERS: PCP Internal Medicine; Visit Provider Internal Medicine Medical Oncology | DX: I82.503 Chronic embolism and thrombosis of unspecified deep veins of lower extremity, bilateral (principal); Z51.81 Encounter for therapeutic drug level monitoring; Z79.01 Long term (current) use of anticoagulants | CPT/HCPCS: 85610; 99211 ==

== ENCOUNTER 2024-06-08 12:31 | Outpatient (AMB) | payer MEDICARE, MEDICAID, SELFPAY ==
[2024-06-08 12:54] VITALS: BP 116/60; PULSE 72; BMI 22.1
--- NOTE | 2024-06-08 12:54 | A.OFFVIS_ITS ---
Vital Signs 06/08/24 12:54 Height 6 ft Weight 163 lb 2.273 oz BMI 22.1 BP 116/60 Blood Pressure Location Lt brachial Position Sitting Pulse 72 Pulse Source Pulse Oximeter Intake Visit Reasons: 1 yr Furniture Assembler Required: Yes Furniture Assembler Services: Furniture Assembler Offered & Declined Accompanied by: Son Allergies doxycycline Allergy (Intermediate, Verified 06/06/24 13:04) Nausea and Vomiting Medication List - Last Reconciled 06/08/24 by Reinaldo Perez MD amlodipine 10 mg PO DAILY ascorbic acid (vitamin C) 1 g PO DAILY atorvastatin 40 mg PO DAILY blood pressure monitor (Blood Pressure Kit) As directed blood sugar diagnostic ([employer] Verio test strips) one time daily blood-glucose meter ([employer] Verio Meter) To check blood glucose once daily budesonide-formoterol 160-4.5 mcg/actuation (Symbicort) 2 puffs PO BID cholecalciferol (vitamin D3) 25 mcg PO DAILY cilostazol 100 mg PO BID cyanocobalamin (vitamin B-12) (Vitamin B-12) 250 mcg PO DAILY ferrous sulfate (Feosol) 325 mg PO DAILY fluticasone propionate 50 mcg/actuation 2 sprays intranasal DAILY gabapentin 300 mg PO DAILY 90 days [garlic clove 1 dose PO NEEDED] ipratropium-albuterol 0.5 mg-3 mg(2.5 mg base)/3 mL 3 mL inhalation Q6H lancets ([employer] Delica Plus Lancet) To test bg daily lancets As directed metformin 500 mg PO DAILY metoprolol succinate ER 25 mg PO DAILY naloxone 4 mg/actuation (Narcan) 4 mg intranasal Q2M 1 day Ventolin HFA 90 mcg/actuation (albuterol sulfate) 2 puffs inhalation Q4-6H PRN NS walker (Ultra-Light Rollator misc) As directed, ambulate at all times with walker warfarin 5 mg See Protocol PO DAILY warfarin 2.5 mg See Protocol PO DAILY 90 days HPI Comments Details: Bao returns for follow-up. Previously seen at [facility]. History of peripheral vascular disease and prior left fem-pop bypass and [place] [facility] [place]. No documented coronary disease. Multiple comorbidities. Overall, he states he feels okay. There was a recent visit to the ER for chest pain but he is extremely vague about it. It seems the troponins were checked and they were unremarkable and he was sent home. He no longer has any such symptoms. 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, without long-term current use of insulin Effusion of right knee joint Contusion of right knee Hemarthrosis involving knee joint Left shoulder pain Appetite impaired Hearing difficulty Weight loss Cough Non-rheumatic aortic stenosis Chronic pain syndrome Postlaminectomy syndrome Diabetic polyneuropathy Gastric carcinoma Peripheral vascular disease Pneumonia Hyperlipidemia LDL goal <70 COPD (chronic obstructive pulmonary disease) Type 2 diabetes mellitus with hyperglycemia Vitamin B12 deficiency Bronchiectasis Moderate aortic stenosis Compression fracture of L1 lumbar vertebra Recurrent deep vein thrombosis (DVT) Peripheral vascular disease History of gastric cancer BPH (benign prostatic hyperplasia) COPD (chronic obstructive pulmonary disease) Joint pain Surgical History History of colonoscopy Amputation of toe of left foot History of gastrectomy Family History Father Diabetes Cancer Mother Diabetes Brother Lung cancer Social History Household Members: None Household Members Other:: lives alone son checks by daily Housing: Apartment Are you a primary career development coordinator to a significant other at home: No Do you presently have visiting nurse or other home services: No Alcohol intake: former Year quit: 1970 Patient Tobacco Use Status: Never used Tobacco e-Cigarette/Vaping Use: Never Used Second Hand Smoke Exposure: No service: No Current occupational status: retired Cognitive needs: Yes (walker/power chair) Hearing needs: No Vision needs: Yes (reading) Review of Systems Const Denies weakness ENT Denies dizziness Card Denies chest pain, Denies chest pain with activity, Denies syncope, Denies rapid heart rate, Denies pedal edema, Denies edema, Denies leg edema, Denies lightheadedness, Denies palpitations, Denies dyspnea, Denies dyspnea on exertion and Denies orthopnea Resp Denies cough, Denies dyspnea and Denies dyspnea on exertion GI Denies hematochezia and Denies change in stool character Musc Denies abnormal gait, Denies muscle cramps, Denies muscle weakness, Denies numbness, Denies radiating pain into limb and Denies tingling Neuro Denies Abnormal speech present, Denies abnormal gait, Denies dizziness, Denies syncope, Denies numbness, Denies tingling and Denies weakness Endo Denies palpitations Physical Exam Vital Signs: Last Vital Signs Pulse 72 06/08/24 12:54 BP 116/60 06/08/24 12:54 BMI result Body Mass Index 22.1 Const General: comfortable and no acute distress Orientation/consciousness: patient oriented x3 HEENT Other: Unremarkable Head: Yes normal to inspection Neck Neck: Yes normal visual inspection Chest Chest palpation & inspection: normal inspection of the chest Resp Auscultation: clear to auscultation bilaterally Cardio Palpation: normal PMI Heart sounds: S1 normal heart sound present, S2 normal heart sound present, no gallops, Murmur heart sound present systolic III/ and at the right sternal border and no rubs GI Palpation (GI): Soft to palpation Back/Spine/Pelvis Other: unremarkable Skin General skin exam: no rashes or lesions noted Neuro General: patient oriented x3 Speech: No Abnormal speech present Extrem General: Yes normal to inspection Psych Mental Status: mental status grossly normal Assessment & Plan Assessment & Plan (1) Non-rheumatic aortic stenosis: Code(s): I35.0 - Nonrheumatic aortic (valve) stenosis Category: Medical (2) Mitral annular calcification: Code(s): I34.81 - Nonrheumatic mitral (valve) annulus calcification Category: Medical (3) Ascending aorta dilatation: Code(s): I77.810 - Thoracic aortic ectasia Category: Medical Plan In the echocardiogram, moderate aortic valve calcification with a mean gradient of 32 mm Hg. Peak 53 mm Hg. Calculated valve area of 1.2 cm2. Preserved LVEF at 55-60%. Moderate diastolic dysfunction. Moderate mitral annular calcification. Ascending aortic size 4.2 cm. With regard to the aortic stenosis, we will repeat study in 6 months. E ventually, possible TAVR candidate. Otherwise, mainly aggressive risk factor modification as he has got many comorbidities as well as vascular disease. No absolute need for ischemia workup in the absence of angina but he will need catheterization anyway before future TAVR. If any recurrence of chest pain, advised patient and son to contact us immediately or seek emergency help. Otherwise, follow-up in 6 months. Orders: Orders CA echo transthoracic complete 6 Months I35.0 - Nonrheumatic aortic (valve) stenosis Coding Level of Care Code Est Pt Level 4 (89996) Complex EM visit Add On G2211 Diagnoses Non-rheumatic aortic stenosis I35.0 Mitral annular calcification I34.81 Ascending aorta dilatation I77.810
== END 2024-06-08 13:16 | disposition home or self-care (01) ==
LOC: HO.HCS 12:31
PROVIDERS: PCP Internal Medicine; Visit Provider Internal Medicine
DX: I35.0 Nonrheumatic aortic (valve) stenosis (principal); I34.81 Nonrheumatic mitral (valve) annulus calcification; I77.810 Thoracic aortic ectasia
CPT/HCPCS: 99214; G2211

== ENCOUNTER → 2024-06-08 12:31 | Outpatient (BNVA) | payer MEDICARE, MEDICAID, SELFPAY | PROVIDERS: PCP Internal Medicine; Visit Provider Internal Medicine | DX: I73.9 Peripheral vascular disease, unspecified (principal); I35.0 Nonrheumatic aortic (valve) stenosis; I34.81 Nonrheumatic mitral (valve) annulus calcification; I77.810 Thoracic aortic ectasia | CPT/HCPCS: 99212 ==

== ENCOUNTER 2024-06-21 13:15 | Outpatient (AMB) | payer MEDICARE, MEDICAID, SELFPAY ==
--- NOTE | 2024-06-21 13:38 | MHC.OFFVISCO ---
Intake Intake Visit Reasons: Anticoagulation Allergies doxycycline Allergy (Intermediate, Verified 06/21/24 13:17) Nausea and Vomiting Medication List - Last Reconciled 06/21/24 by Rakel Ngo RN amlodipine 10 mg PO DAILY ascorbic acid (vitamin C) 1 g PO DAILY atorvastatin 40 mg PO DAILY blood pressure monitor (Blood Pressure Kit) As directed blood sugar diagnostic ([employer] Verio test strips) one time daily blood-glucose meter ([employer]Touch Verio Meter) To check blood glucose once daily budesonide-formoterol 160-4.5 mcg/actuation (Symbicort) 2 puffs PO BID cholecalciferol (vitamin D3) 25 mcg PO DAILY cilostazol 100 mg PO BID cyanocobalamin (vitamin B-12) (Vitamin B-12) 250 mcg PO DAILY ferrous sulfate (Feosol) 325 mg PO DAILY fluticasone propionate 50 mcg/actuation 2 sprays intranasal DAILY gabapentin 300 mg PO DAILY 90 days [garlic clove 1 dose PO NEEDED] ipratropium-albuterol 0.5 mg-3 mg(2.5 mg base)/3 mL 3 mL inhalation Q6H lancets ([employer] Delica Plus Lancet) To test bg daily lancets As directed metformin 500 mg PO DAILY metoprolol succinate ER 25 mg PO DAILY naloxone 4 mg/actuation (Narcan) 4 mg intranasal Q2M 1 day Ventolin HFA 90 mcg/actuation (albuterol sulfate) 2 puffs inhalation Q4-6H PRN NS walker (Ultra-Light Rollator misc) As directed, ambulate at all times with walker warfarin 5 mg See Protocol PO DAILY warfarin 2.5 mg See Protocol PO DAILY 90 days Nursing Note INR: 2.3 in therapeutic range Medications and supplements reviewed has been taking more tyelnol than usual and son requested to have INR checked sooner Denies any signs and symptoms of bleeding or bruising or clotting. Bleeding, bruising, clotting discussed Nutritional guidance given Dose: 2.5MG MWF/ 5MG X 4 DAYS F/U INR: 2 WEEKS Patient verbalizes understanding of instructions given Anti-Coag Initial Assessment Social Hx Patient Tobacco Use Status: Never used Tobacco alcohol intake: former Alcohol intake frequency: does not drink Coding Level of Care Code Est Patient Level 1 Diagnoses Current use of anticoagulant therapy Z79.01 Results AMB INR Fingerstick AMB INR Fingerstick 2.3 Last Edit by Rakel Ngo RN on 06/21/24 13:31 manual entry Assessment & Plan Assessment & Plan (1) Current use of anticoagulant therapy: Code(s): Z79.01 - termite renewal inspector (current) 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
[2024-06-21 13:41] LABS: Prothrombin Time Whole Bld POC 27.4 sec (11.1-13.5); ~PT, ~INR - Anti Coag Clinic 2.3 (0.9-1.1)
== END 2024-06-21 13:41 | disposition home or self-care (01) ==
LOC: HO.ACS 13:15
PROVIDERS: PCP Internal Medicine; Visit Provider Internal Medicine Medical Oncology
DX: Z79.01 Long term (current) use of anticoagulants (principal)

== ENCOUNTER → 2024-06-21 13:15 | Outpatient (BNVA) | payer MEDICARE, MEDICAID, SELFPAY | PROVIDERS: PCP Internal Medicine; Visit Provider Internal Medicine Medical Oncology | DX: I82.503 Chronic embolism and thrombosis of unspecified deep veins of lower extremity, bilateral (principal); Z51.81 Encounter for therapeutic drug level monitoring; Z79.01 Long term (current) use of anticoagulants | CPT/HCPCS: 85610; 99211 ==

== ENCOUNTER 2024-06-25 07:40 | Outpatient (REF) | payer MEDICARE, MEDICAID, SELFPAY ==
[2024-06-25 08:25] LABS: Appearance Urine Clear; Color Urine Yellow; Glucose Urine UA Negative (Negative); Leukocyte Esterase Urine Negative (Negative); Nitrite Urine Negative (Negative); PH 6.5 (5.0-9.0); Urine Blood Negative (Negative); Urine Ketones Negative (Negative); Urine Protein Negative (Neg-Trace)
== END 2024-06-25 07:41 | disposition home or self-care (01) ==
LOC: HO.LAB 07:40
PROVIDERS: PCP Internal Medicine
DX: R30.0 Dysuria (principal)
CPT/HCPCS: 81003

== ENCOUNTER 2024-06-27 10:41 | Outpatient (AMB) | payer MEDICARE, MEDICAID, SELFPAY ==
--- NOTE | 2024-06-27 10:47 | A.OFFPC_ITS ---
Vital Signs 06/27/24 10:48 Height 6 ft Weight 162 lb 4 oz BMI 22.0 BP 130/76 Blood Pressure Location Lt brachial Position Sitting Pulse 75 Pulse Source Pulse Oximeter Temp 97.1 F Temp Source Temporal Artery Scan Pulse Oximetry (%) 98 Oxygen Delivery Method Room Air Intake Visit Reasons: kidney pain Intake Note: Patient is here to follow up on Kidney pain. Manufacturing Sr Engineer Required: Yes Manufacturing Sr Engineer Language: Table Tender Sludge Name: Bao Castillo (son) Information Interpreted: non-clinical & clinical (Pt decline flooring machine feeder service prefer son to flooring machine feeder) Web Production Artist: Present Accompanied by: Son Allergies doxycycline Allergy (Intermediate, Verified 06/27/24 10:48) Nausea and Vomiting Tobacco use date assessed: 06/27/24 Fall risk assessment: No Falls in past year Last assessed Fall Risk: 06/27/24 Dental Screening Dental Screen Date: 05/02/24 HPI kidney pain HPI Details pain med taken off due to mis count- states son took them [facility] 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, without long-term current use of insulin Effusion of right knee joint Contusion of right knee Hemarthrosis involving knee joint Left shoulder pain Appetite impaired Hearing difficulty Weight loss Cough Non-rheumatic aortic stenosis Chronic pain syndrome Postlaminectomy syndrome Diabetic polyneuropathy Gastric carcinoma Peripheral vascular disease Pneumonia Hyperlipidemia LDL goal <70 COPD (chronic obstructive pulmonary disease) Type 2 diabetes mellitus with hyperglycemia Vitamin B12 deficiency Bronchiectasis Moderate aortic stenosis Compression fracture of L1 lumbar vertebra Recurrent deep vein thrombosis (DVT) Peripheral vascular disease History of gastric cancer BPH (benign prostatic hyperplasia) COPD (chronic obstructive pulmonary disease) Joint pain Surgical History History of colonoscopy Amputation of toe of left foot History of gastrectomy Family History Father Diabetes Cancer Mother Diabetes Brother Lung cancer Social History Household Members: None Household Members Other:: lives alone son checks by daily Housing: Apartment Are you a primary career transition specialist to a significant other at home: No Do you presently have visiting nurse or other home services: No Alcohol intake: former Year quit: 1970 Patient Tobacco Use Status: Never used Tobacco e-Cigarette/Vaping Use: Never Used Second Hand Smoke Exposure: No service: No Current occupational status: retired Cognitive needs: Yes (walker/power chair) Hearing needs: No Vision needs: Yes (reading) Questionnaire Thrive Questionnaire Date Thrive assessed: 05/02/24 SHANNON-7 AMB Questionnaire SHANNON-7 Date SHANNON - 7 assessed: 05/02/24 Source: Developed by Drs. Irwin Adrian, Teresa Pickard, Billy Linda and colleagues, with an educational janina from [employer]. Physical exam (Primary Care) Vital Signs: Last Vital Signs Temp 97.1 F 06/27/24 10:48 Pulse 75 06/27/24 10:48 BP 130/76 06/27/24 10:48 Pulse Ox 98 06/27/24 10:48 Oxygen Delivery Method Room Air 06/27/24 10:48 BMI result Body Mass Index 22.0 Tobacco/Smoking Status: Tobacco use Status Tobacco use date assessed 06/27/24 06/27/24 10:55 Patient Tobacco Use Status Never used Tobacco 06/27/24 10:55 e-Cigarette/Vaping Use Never Used 06/27/24 10:55 Thrive Assessment: Date of Thrive Assessment Date Thrive assessed 05/02/24 06/27/24 10:55 Const General: alert; No acute distress Eyes Conjunctivae: conjunctivae normal Resp Auscultation: clear to auscultation bilaterally Cardio Rate: regular rate Rhythm: regular rhythm GI Inspection: Yes normal to inspection Extrem General: Yes normal to inspection and No edema Coding Level of Care Code Est Pt Level 4 (69976) Complex EM visit Add On G2211 Diagnoses Ascending aorta dilatation I77.810 Postlaminectomy syndrome M96.1 Anemia D64.9 Hyperlipidemia LDL goal <70 E78.5 Essential hypertension I10 Recurrent deep vein thrombosis (DVT) I82.409 Pulmonary emphysema, unspecified emphysema type J43.9 COPD type: emphysema Emphysema type: unspecified Type 2 diabetes mellitus with hyperglycemia, without long-term current use of insulin E11.65 Diabetes mellitus emt intermediate insulin use: without fdc use Moderate aortic stenosis I35.0 Assessment & Plan Assessment & Plan (1) Ascending aorta dilatation: Comment: May 2024 4.2 cm Code(s): I77.810 - Thoracic aortic ectasia Category: Medical Plan: Get blood pressure under control echocardiogram to be done 6 months from now (2) Postlaminectomy syndrome: Code(s): M96.1 - Postlaminectomy syndrome, not elsewhere classified Category: Medical Plan: Continue to follow-up with pain management on gabapentin. was taken off narcotics due to miscount. will increase the gabapentin (3) Anemia: Code(s): D64.9 - Anemia, unspecified Category: Medical Plan: Continue to monitor. Chronic and stable (4) Hyperlipidemia LDL goal <70: Code(s): E78.5 - Hyperlipidemia, unspecified Category: Medical Plan: Avoid fried foods, chicken skin, eggs, butter margarine, pastries and meat. Be it pork or beef they have a lot of cholesterol LDL goal of less than 100 and triglyceride of less than 150 on atorvastatin 40 mg once a day last blood work January 2024 (5) Essential hypertension: Code(s): I10 - Essential (primary) hypertension Category: Medical Plan: Continue with blood pressure medication. Decrease salt intake and exercise on amlodipine 10 mg once a day metoprolol 25 mg once a day (6) Recurrent deep vein thrombosis (DVT): Comment: Left lower extremity bypass graft Code(s): I82.409 - Acute embolism and thrombosis of unspecified deep veins of unspecified lower extremity Category: Medical Plan: Continue with anticoagulation (7) COPD (chronic obstructive pulmonary disease): Comment: This patient is well known to have chronic obstructive pulmonary disease, moderately severe. He is staying stable with the current medical regimen , except for intermittent increase in cough and mucus production. Code(s): J44.9 - Chronic obstructive pulmonary disease, unspecified Category: Medical Qualifiers: COPD type: emphysema Emphysema type: unspecified Qualified Code(s): J43.9 - Emphysema, unspecified Plan: Continue with albuterol inhaler as needed and on Symbicort (8) Type 2 diabetes mellitus with hyperglycemia: Code(s): E11.65 - Type 2 diabetes mellitus with hyperglycemia Category: Medical Qualifiers: Diabetes mellitus emt intermediate insulin use: without emt intermediate use Qualified Code(s): E11.65 - Type 2 diabetes mellitus with hyperglycemia Plan: Decrease the amount of carbohydrate intake, pasta, bread, rice and potatoes are all sugar and that is aside from all the sweet stuff, remember that fruits are good but they are Sweet also. April 2024 last able A1c was 6.1 control on metformin 500 mg once a day (9) Moderate aortic stenosis: Comment: August 2019 1.5 cm sq Brule and cardiovascular As August 2021 1.1 cm2, March 2022 1.3 cm2 May 2023 1.18 cm squared Code(s): I35.0 - Nonrheumatic aortic (valve) stenosis Category: Medical Plan: Continuing to be monitored last echocardiogram January 2024 advised repeat testing in 6 months Plan History of Present Illness The patient is an 83-year-old male presenting for follow-up regarding multiple chronic conditions and pain management. He has longstanding issues, including chronic kidney disease, and management for benign prostatic hyperplasia, diabetes, COPD, and managing post-operative pain after laminectomy for which he is taking gabapentin and [id number] Tylenol. His history also includes significant treatment for stomach cancer, having undergone gastrectomy in 2001. Recently, in May 2024, his laboratory results shown mild anemia and th rombocytopenia, but his renal function remained stable. His most recent blood sugar reading was consistent at 127 mg/dL and his hemoglobin A1c at 6.1% indicates controlled diabetes. The patient's liver function is stable, and his LDL cholesterol is managed at a safe level. Cardiologically, the patient was assessed in June 2024, where a moderate aortic valve calcification was observed but without coronary artery disease. His echocardiogram indicated moderate ascending aorta dilatation, prompting a follow-up in six months. His COPD is managed with inhalers, while his hypertension is controlled with amlodipine and metoprolol, and his anticoagulation continued. Health Maintenance - Repeat echocardiogram/ultrasound scheduled in six months for monitoring aortic valve calcification. - Blood sugar and hemoglobin A1c are monitored with continuance of metformin. - Lipid profile management with atorvastatin; regular follow-up to ensure LDL goals. - Blood pressure monitoring in conjunction with current antihypertensive regimen. - COPD management includes regular use of albuterol inhaler and Symbicort. - Pain management strategy with gabapentin and Tylenol. Social History - Annually follows up for chronic conditions. - Takes prescribed medications and [id number] pain management as needed, reflecting adherence issues due to family intervention. Review of Systems - Cardiovascular: Denies chest pain. - Respiratory: Denies frequent use of Ventolin; reports regular use of Symbicort. - Musculoskeletal: Reports persistent post-surgical pain. - Endocrine: Stable blood glucose levels with controlled diabetes. - Hematological: Reports of mild anemia and thrombocytopenia per recent labs. Physical Exam Results - Labs: Mild anemia and thrombocytopenia; stable renal function; blood glucose at 127 mg/dL; Hgb A1c 6.1% (Apr 2024); LDL 48 mg/dL (Jan 2024). - Tests: Echocardiogram showing moderate aortic valve calcification, preserved ejection fraction, diastolic dysfunction, moderate ascending aorta dilation of 4.2 cm (May 2024). Plan The patient's management plan includes regular follow-up for his cardiovascular condition with a scheduled echocardiogram in six months to monitor aortic valve calcification. His post-laminectomy syndrome will be treated with adjusted gabapentin and Tylenol intake, seeking to balance effective pain control and medication adherence. COPD treatment with Symbicort and albuterol will continue, ensuring compliance with inhaler use. Anticoagulation continuity is critical given his history of DVT. Diabetes management remains stable on metformin, with well-controlled blood glucose and A1c levels. His cholesterol is effectively managed with atorvastatin aiming to keep LDL below 100 mg/dL. For hypertension, the current regimen of amlodipine and metoprolol maintains control, requiring close monitoring given the echocardiogram findings. Conversations emphasized avoiding narcotic analgesics while considering other pain control alternatives. Patient was informed and verbally consented to the use of an ambient scribe for clinic note documentation during this visit. Discussion Notes During the visit, we discussed the current status of the patient's chronic medical issues and addressed specific management strategies. I emphasized the importance of repeating the echocardiogram in six months to evaluate the status of the aortic valve calcification. Detailed management of his post-surgical pain was reviewed, with specific instructions provided to adjust gabapentin dosing, highlighting the need to minimize narcotic alternatives. We also reviewed the stability of his diabetes under metformin and lipid control with atorvastatin, stressing ongoing adherence to his medication regimen. The necessity of continuing anticoagulation therapy was confirmed, considering his history of DVT. I clarified the importance of monitoring blood pressure levels, especially in consideration of his moderate aortic dilation. I advised the patient to return for follow-up as scheduled and to report any exacerbations of his symptoms promptly. The patient was informed about the benefits and potential downsides of all discussed interventions. Patient Instructions - Continue current medication regimen as prescribed. - Take Tylenol 500 mg two tablets, up to three times a day as needed for pain. - Increase gabapentin dosage and follow the prescribed schedule. - Use inhalers as directed and inform us of any exacerbation of COPD symptoms. - Monitor blood pressure regularly and note any significant changes. - Schedule six-month follow-up for repeat echocardiogram. - Maintain regular blood tests to monitor diabetes, cholesterol, and other chronic conditions. - Follow up as scheduled and notify us immediately if you experience any worsening of your health conditions or new symptoms. Medications: Changed From gabapentin 300 mg PO DAILY 90 days 90 caps 3RF To gabapentin 300 mg PO TID 90 days 270 caps 1RF
[2024-06-27 10:48] VITALS: BP 130/76; PULSE 75; TEMP 36.2; O2SAT 98; BMI 22.0
== END 2024-06-27 11:29 | disposition home or self-care (01) ==
LOC: HO.HMCH 10:42
PROVIDERS: PCP Internal Medicine; Visit Provider Internal Medicine
DX: I77.810 Thoracic aortic ectasia (principal); I82.409 Acute embolism and thrombosis of unspecified deep veins of unspecified lower extremity; J43.9 Emphysema, unspecified; E11.65 Type 2 diabetes mellitus with hyperglycemia; M96.1 Postlaminectomy syndrome, not elsewhere classified; D64.9 Anemia, unspecified; E78.5 Hyperlipidemia, unspecified; I10 Essential (primary) hypertension; I35.0 Nonrheumatic aortic (valve) stenosis

== ENCOUNTER → 2024-06-27 10:41 | Outpatient (BNVA) | payer MEDICARE, MEDICAID, SELFPAY | PROVIDERS: PCP Internal Medicine; Visit Provider Internal Medicine | DX: I77.810 Thoracic aortic ectasia (principal); M96.1 Postlaminectomy syndrome, not elsewhere classified; E78.5 Hyperlipidemia, unspecified; E11.22 Type 2 diabetes mellitus with diabetic chronic kidney disease; E11.65 Type 2 diabetes mellitus with hyperglycemia; I12.9 Hypertensive chronic kidney disease with stage 1 through stage 4 chronic kidney disease, or unspecified chronic kidney disease; N18.9 Chronic kidney disease, unspecified; I82.409 Acute embolism and thrombosis of unspecified deep veins of unspecified lower extremity; J43.9 Emphysema, unspecified; I35.0 Nonrheumatic aortic (valve) stenosis; D63.1 Anemia in chronic kidney disease; N40.0 Benign prostatic hyperplasia without lower urinary tract symptoms; J44.9 Chronic obstructive pulmonary disease, unspecified; Z79.01 Long term (current) use of anticoagulants | CPT/HCPCS: 99212 ==

== ENCOUNTER → 2024-07-04 13:36 | Outpatient (BNVA) | payer MEDICARE, MEDICAID, SELFPAY | PROVIDERS: PCP Internal Medicine; Visit Provider Internal Medicine Medical Oncology | DX: I82.503 Chronic embolism and thrombosis of unspecified deep veins of lower extremity, bilateral (principal); Z79.01 Long term (current) use of anticoagulants; Z51.81 Encounter for therapeutic drug level monitoring | CPT/HCPCS: 85610; 99211 ==

== ENCOUNTER 2024-07-07 08:58 | Outpatient (REF) | payer MEDICARE, MEDICAID, SELFPAY ==
[2024-07-07 09:21] LABS: MANUAL DIFF FLAG NO
[2024-07-07 09:54] LABS: Basophils Percent Auto 0.6 % (0-2); Eosinophils Absolute Auto 0.4 X10*3/uL (0.0-0.4); Eosinophils Percent Auto 5.8 % (0-4); Hematocrit 36.3 % (42.0-52.0); Hemoglobin 11.4 g/dl (14.0-18.0); Imm Gran Abs Auto 0.07 X10*3/uL (0.00-0.03); Lymphocytes Absolute Auto 1.9 X10*3/uL (1.2-4.9); Lymphocytes Percent Auto 25.8 % (20-40); Mean Corpuscular HGB Conc 31.4 g/dl (31.0-36.0); Mean Corpuscular Hemoglobin 28.6 pg (27.0-33.0); Mean Platelet Volume 11.7 fL (9.4-12.4); Monocytes Absolute Auto 0.6 X10*3/uL (0.1-1.2); Monocytes Percent Auto 8.8 % (2-11); Neutrophils Absolute Auto 4.2 x10*3/uL (2.0-8.3); Platelet Count 151 X10*3/uL (160-400); Red Blood Count 3.99 X10*6/uL (4.60-5.80); Red Cell Distribution Width 14.8 % (11.0-16.0); White Blood Count 7.2 X10*3/uL (4.8-10.8)
== END 2024-07-07 08:59 | disposition home or self-care (01) ==
LOC: HO.LAB 08:58
PROVIDERS: PCP Internal Medicine
DX: Z00.00 Encounter for general adult medical examination without abnormal findings (principal); D64.9 Anemia, unspecified
CPT/HCPCS: 36415; 85025

== ENCOUNTER 2024-07-08 08:18 | Outpatient (REF) | payer MEDICARE, MEDICAID, SELFPAY ==
[2024-07-08 10:14] LABS: Cholesterol 109 mg/dL (<200); HDL Cholesterol 53 mg/dL (>40); Iron 70 mcg/dL (45-160); LDL Cholesterol Calculated 46 mg/dL (<100); Percent Iron Saturation 40 % (15-50); Total Iron Binding Capacity 177 mcg/dL (228-428); Triglycerides 50 mg/dL (<150); Unsaturated Iron Binding 107 ug/dL
== END 2024-07-08 08:19 | disposition home or self-care (01) ==
LOC: HO.LAB 08:18
DX: D64.9 Anemia, unspecified (principal); E78.00 Pure hypercholesterolemia, unspecified
CPT/HCPCS: 36415; 80061; 83540

== ENCOUNTER 2024-07-25 13:25 | Outpatient (AMB) | payer MEDICARE, MEDICAID, SELFPAY ==
[2024-07-25 13:33] LABS: Prothrombin Time Whole Bld POC 17.8 sec (11.1-13.5); ~PT, ~INR - Anti Coag Clinic 1.5 (0.9-1.1)
--- NOTE | 2024-07-25 13:42 | MHC.OFFVISCO ---
Intake Intake Visit Reasons: Anticoagulation Allergies doxycycline Allergy (Intermediate, Verified 07/25/24 13:27) Nausea and Vomiting Medication List - Last Reconciled 07/25/24 by Fouzia Mcginnis, RN amlodipine 10 mg PO DAILY ascorbic acid (vitamin C) 1 g PO DAILY atorvastatin 40 mg PO DAILY blood pressure monitor (Blood Pressure Kit) As directed blood sugar diagnostic (OneTouch Verio test strips) one time daily blood-glucose meter ([employer]Touch Verio Meter) To check blood glucose once daily budesonide-formoterol 160-4.5 mcg/actuation (Symbicort) 2 puffs PO BID cholecalciferol (vitamin D3) 25 mcg PO DAILY cilostazol 100 mg PO BID cyanocobalamin (vitamin B-12) (Vitamin B-12) 250 mcg PO DAILY ferrous sulfate (Feosol) 325 mg PO DAILY fluticasone propionate 50 mcg/actuation 2 sprays intranasal DAILY gabapentin 300 mg PO TID 90 days [garlic clove 1 dose PO NEEDED] ipratropium-albuterol 0.5 mg-3 mg(2.5 mg base)/3 mL 3 mL inhalation Q6H lancets ([employer]inery[employer]Touch Delica Plus Lancet) To test bg daily lancets As directed metformin 500 mg PO DAILY metoprolol succinate ER 25 mg PO DAILY naloxone 4 mg/actuation (Narcan) 4 mg intranasal Q2M 1 day Ventolin HFA 90 mcg/actuation (albuterol sulfate) 2 puffs inhalation Q4-6H PRN NS walker (Ultra-Light Rollator misc) As directed, ambulate at all times with walker warfarin 5 mg See Protocol PO DAILY warfarin 2.5 mg See Protocol PO DAILY 90 days Nursing Note INR: 1.5?out of therapeutic range of 2-3 Pt denies missed dose Medications and supplements reviewed Patient status: no changes Medications or supplements: no changes Diet: usual diet for pt Denies any signs and symptoms of bleeding or clotting or unusual bruising Bleeding, bruising, clotting discussed Nutritional guidance given: to avoid greens next 2 days Dose: 5mg daily until retest date on... F/U INR Date: 07/29/24?? Patient verbalizing understanding of instructions given. Composed note sent to Dr Barrientos to report critical INR 1.5 with dosing plan and next retest date. Anti-Coag Initial Assessment Social Hx Patient Tobacco Use Status: Never used Tobacco alcohol intake: former Alcohol intake frequency: does not drink Coding Level of Care Code Est Patient Level 1 Diagnoses Current use of anticoagulant therapy Z79.01 Assessment & Plan Assessment & Plan (1) Current use of anticoagulant therapy: Code(s): Z79.01 - long-term (current) 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
== END 2024-07-25 13:53 | disposition home or self-care (01) ==
LOC: HO.ACS 13:25
PROVIDERS: Visit Provider Internal Medicine Medical Oncology
DX: Z79.01 Long term (current) use of anticoagulants (principal)

== ENCOUNTER → 2024-07-25 13:25 | Outpatient (BNVA) | payer MEDICARE, MEDICAID, SELFPAY | PROVIDERS: Visit Provider Internal Medicine Medical Oncology | DX: I82.503 Chronic embolism and thrombosis of unspecified deep veins of lower extremity, bilateral (principal); Z79.01 Long term (current) use of anticoagulants; Z51.81 Encounter for therapeutic drug level monitoring | CPT/HCPCS: 85610; 99211 ==

== ENCOUNTER 2024-07-29 13:51 | Outpatient (AMB) | payer MEDICARE, MEDICAID, SELFPAY ==
[2024-07-29 13:57] LABS: ~PT, ~INR - Anti Coag Clinic 2.7 (0.9-1.1)
--- NOTE | 2024-07-29 13:59 | MHC.OFFVISCO ---
Intake Intake Visit Reasons: Anticoagulation Allergies doxycycline Allergy (Intermediate, Verified 07/29/24 13:51) Nausea and Vomiting Medication List - Last Reconciled 07/29/24 by Fouzia Mcginnis RN amlodipine 10 mg PO DAILY ascorbic acid (vitamin C) 1 g PO DAILY atorvastatin 40 mg PO DAILY blood pressure monitor (Blood Pressure Kit) As directed blood sugar diagnostic (OneTouch Verio test strips) one time daily blood-glucose meter ([employer] Verio Meter) To check blood glucose once daily budesonide-formoterol 160-4.5 mcg/actuation (Symbicort) 2 puffs PO BID cholecalciferol (vitamin D3) 25 mcg PO DAILY cilostazol 100 mg PO BID cyanocobalamin (vitamin B-12) (Vitamin B-12) 250 mcg PO DAILY ferrous sulfate (Feosol) 325 mg PO DAILY fluticasone propionate 50 mcg/actuation 2 sprays intranasal DAILY gabapentin 300 mg PO TID 90 days [garlic clove 1 dose PO NEEDED] ipratropium-albuterol 0.5 mg-3 mg(2.5 mg base)/3 mL 3 mL inhalation Q6H lancets ([employer]Touch Delica Plus Lancet) To test bg daily lancets As directed metformin 500 mg PO DAILY metoprolol succinate ER 25 mg PO DAILY naloxone 4 mg/actuation (Narcan) 4 mg intranasal Q2M 1 day Ventolin HFA 90 mcg/actuation (albuterol sulfate) 2 puffs inhalation Q4-6H PRN NS walker (Ultra-Light Rollator misc) As directed, ambulate at all times with walker warfarin 5 mg See Protocol PO DAILY warfarin 2.5 mg See Protocol PO DAILY 90 days Nursing Note Pt to [facility] accompanied by son. INR: 2.7 in therapeutic range of 2-3 Medications and supplements reviewed No changes in health, diet, medications, or supplements, Denies any signs and symptoms of bleeding or bruising or clotting. Bleeding, bruising, clotting discussed Nutritional guidance given Dose: 5mg X 4 days and 2.5mg X 3 days (M/W/F) F/U INR: 2 weeks Patient verbalizes understanding of instructions given Anti-Coag Initial Assessment Social Hx Patient Tobacco Use Status: Never used Tobacco alcohol intake: former Alcohol intake frequency: does not drink Coding Level of Care Code Est Patient Level 1 Diagnoses Current use of anticoagulant therapy Z79.01 Assessment & Plan Assessment & Plan (1) Current use of anticoagulant therapy: Code(s): Z79.01 - [facility] (current) 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
== END 2024-07-29 14:05 | disposition home or self-care (01) ==
LOC: HO.ACS 13:51
PROVIDERS: Visit Provider Internal Medicine Medical Oncology
DX: Z79.01 Long term (current) use of anticoagulants (principal)

== ENCOUNTER → 2024-07-29 13:51 | Outpatient (BNVA) | payer MEDICARE, MEDICAID, SELFPAY | PROVIDERS: Visit Provider Internal Medicine Medical Oncology | DX: I82.503 Chronic embolism and thrombosis of unspecified deep veins of lower extremity, bilateral (principal); Z79.01 Long term (current) use of anticoagulants; Z51.81 Encounter for therapeutic drug level monitoring | CPT/HCPCS: 85610; 99211 ==

== ENCOUNTER 2024-08-02 14:45 | Outpatient (AMB) | payer MEDICARE, MEDICAID, SELFPAY ==
--- NOTE | 2024-08-02 14:48 | MHC.PC.OV ---
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, without long-term current use of insulin Effusion of right knee joint Contusion of right knee Hemarthrosis involving knee joint Left shoulder pain Appetite impaired Hearing difficulty Weight loss Cough Non-rheumatic aortic stenosis Chronic pain syndrome Postlaminectomy syndrome Diabetic polyneuropathy Gastric carcinoma Peripheral vascular disease Pneumonia Hyperlipidemia LDL goal <70 COPD (chronic obstructive pulmonary disease) Type 2 diabetes mellitus with hyperglycemia Vitamin B12 deficiency Bronchiectasis Moderate aortic stenosis Compression fracture of L1 lumbar vertebra Recurrent deep vein thrombosis (DVT) Peripheral vascular disease History of gastric cancer BPH (benign prostatic hyperplasia) COPD (chronic obstructive pulmonary disease) Joint pain Surgical History History of colonoscopy Amputation of toe of left foot History of gastrectomy Family History Father Diabetes Cancer Mother Diabetes Brother Lung cancer Social History Household Members: None Household Members Other:: lives alone son checks by daily Housing: Apartment Are you a primary home care scheduler to a significant other at home: No Do you presently have visiting nurse or other home services: No Alcohol intake: former Year quit: 1970 Patient Tobacco Use Status: Never used Tobacco Tobacco use type: Cigarette e-Cigarette/Vaping Use: Never Used Second Hand Smoke Exposure: No service: No Current occupational status: retired Cognitive needs: Yes (walker/power chair) Hearing needs: No Vision needs: Yes (reading) Questionnaire PHQ-9 Over the last 2 weeks, how often have you been bothered by any of the following problems? 1. Little interest or pleasure in doing things: not at all 2. Feeling down, depressed, or hopeless: not at all 3. Trouble falling or staying asleep, or sleeping too much: not at all 4. Feeling tired or having little energy: not at all 5. Poor appetite or overeating: not at all 6. Feeling bad about yourself - or that you are a failure or have let yourself or your family down: not at all 7. Trouble concentrating on things, such as reading the newspaper or watching television: not at all 8. Moving or speaking so slowly that other people could have noticed. Or the opposite - being so fidgety or restless that you have been moving around a lot more than usual: not at all 9. Thoughts that you would be better off or of hurting yourself in some way: not at all Total score: 0 Depression Screening Interpretation: Negative Depression Screening Done: Yes Source: Developed by Drs. Irwin Adrian, Teresa Pickard, Billy Linda and colleagues, with an educational janina from [employer]. Thrive Questionnaire Date Thrive assessed: 05/02/24 SHANNON-7 AMB Questionnaire SHANNON-7 Date SHANNON - 7 assessed: 05/02/24 Source: Developed by Drs. Irwin Adrian, Teresa Pickard, Billy Linda and colleagues, with an educational janina from [employer]. Physical exam (Primary Care) Vital Signs: Last Vital Signs Pulse 74 08/02/24 14:49 BP 124/70 08/02/24 14:49 Pulse Ox 96 08/02/24 14:49 Oxygen Delivery Method Room Air 08/02/24 14:49 BMI result Body Mass Index 22.6 Tobacco/Smoking Status: Tobacco use Status Tobacco use date assessed 06/27/24 08/02/24 14:50 Patient Tobacco Use Status Never used Tobacco 08/02/24 14:50 Tobacco use type Cigarette 08/02/24 14:50 e-Cigarette/Vaping Use Never Used 08/02/24 14:50 PHQ-9: PHQ-9 Score PHQ-9: Total score 0 08/02/24 15:07 Depression Screening Interpretation: Negative Thrive Assessment: Date of Thrive Assessment Date Thrive assessed 05/02/24 08/02/24 14:50 Const General: alert; No acute distress Eyes Conjunctivae: conjunctivae normal Resp Auscultation: clear to auscultation bilaterally Cardio Rate: regular rate Rhythm: regular rhythm GI Inspection: Yes normal to inspection Extrem General: Yes normal to inspection and No edema Results AMB Hemoglobin A1c AMB Hemoglobin A1c 6.2 % Last Edit by Teresa Garcia CMA on 08/02/24 15:08 Results Reviewed Results Reviewed: Laboratory Last Values Hgb A1c (Clinic) 6.2 % (4.0-6.0) H 08/02/24 14:50 Coding Level of Care Code Est Pt Level 4 (21717) Complex EM visit Add On G2211 Diagnoses Type 2 diabetes mellitus with hyperglycemia, without long-term current use of insulin E11.65 Diabetes mellitus buttermaker continuous churn insulin use: without buttermaker continuous churn use Moderate aortic stenosis I35.0 Pulmonary emphysema, unspecified emphysema type J43.9 COPD type: emphysema Emphysema type: unspecified Recurrent deep vein thrombosis (DVT) I82.409 Essential hypertension I10 Hyperlipidemia LDL goal <70 E78.5 Anemia D64.9 Postlaminectomy syndrome M96.1 Assessment & Plan Assessment & Plan (1) Type 2 diabetes mellitus with hyperglycemia: Code(s): E11.65 - Type 2 diabetes mellitus with hyperglycemia Category: Medical Qualifiers: Diabetes mellitus buttermaker continuous churn insulin use: without buttermaker continuous churn use Qualified Code(s): E11.65 - Type 2 diabetes mellitus with hyperglycemia Plan: Decrease the amount of carbohydrate intake, pasta, bread, rice and potatoes are all sugar and that is aside from all the sweet stuff, remember that fruits are good but they are Sweet also. Hemoglobin A1c goal of less than 7.0 on metformin 500 mg once a day (2) Moderate aortic stenosis: Comment: August 2019 1.5 cm sq [place] and cardiovascular As August 2021 1.1 cm2, March 2022 1.3 cm2 May 2023 1.18 cm squared May 2024 1.2 cm Code(s): I35.0 - Nonrheumatic aortic (valve) stenosis Category: Medical Plan: Continuing to monitor with last echocardiogram (3) COPD (chronic obstructive pulmonary disease): Comment: This patient is well known to have chronic obstructive pulmonary disease, moderately severe. He is staying stable with the current medical regimen , except for intermittent increase in cough and mucus production. Code(s): J44.9 - Chronic obstructive pulmonary disease, unspecified Category: Medical Qualifiers: COPD type: emphysema Emphysema type: unspecified Qualified Code(s): J43.9 - Emphysema, unspecified Plan: Patient on Ventolin inhaler and Symbicort (4) Recurrent deep vein thrombosis (DVT): Comment: Left lower extremity bypass graft Code(s): I82.409 - Acute embolism and thrombosis of unspecified deep veins of unspecified lower extremity Category: Medical Plan: Continuing with anticoagulation but needs to get blood work twice a day year (5) Essential hypertension: Code(s): I10 - Essential (primary) hypertension Category: Medical Plan: Continue with blood pressure medication. Decrease salt intake and exercise patient takes metoprolol 25 mg once a day amlodipine 10 mg once a day (6) Hyperlipidemia LDL goal <70: Code(s): E78.5 - Hyperlipidemia, unspecified Category: Medical Plan: Avoid fried foods, chicken skin, eggs, butter margarine, pastries and meat. Be it pork or beef they have a lot of cholesterol LDL goal of less than 100 and triglyceride of less than 150 patient takes atorvastatin 40 mg once a day (7) Anemia: Code(s): D64.9 - Anemia, unspecified Category: Medical Plan: Chronic and stable (8) Postlaminectomy syndrome: Code(s): M96.1 - Postlaminectomy syndrome, not elsewhere classified Category: Medical Plan: Continue keeping self active Plan History of Present Illness The patient is an 83-year-old male presenting for chronic disease management. He has a notable history of chronic kidney disease, benign prostatic hyperplasia, and significant cardiac conditions including aortic stenosis and dilatation. His most recent echocardiogram in May 2024 indicated moderate aortic stenosis with mild regurgitation, mild left ventricular hypertrophy, and diastolic dysfunction. His ascending aortic dimension was slightly increased but stable compared to prior assessments. He continues to manage his diabetes with an HbA1c of 6.1%, taking metformin as prescribed. Hypertension and hyperlipidemia are controlled with metoprolol, amlodipine, and atorvastatin. COPD is managed with regular use of a Ventolin inhaler. He is on anticoagulants due to a history of recurrent deep vein thrombosis. His recent lab work showed anemia, for which monitoring will continue, and lipid levels under control. Chronic back pain persists post-laminectomy, and he has been advised to maintain activity levels within his comfort. There is no new onset of dyspnea reported, and overall, his chronic conditions appear adequately managed with current therapeutic regimens. Health Maintenance - Regular monitoring of echocardiograms for aortic stenosis and aortic dilatation - Blood work for anemia monitoring - Lipid profile with LDL goal <100 mg/dL and triglyceride <150 mg/dL - Glycemic control with target HbA1c monitoring Social History - Manages chronic back pain post-laminectomy by maintaining activity - Compliance with inhaler use for COPD management, ensuring proper technique by rinsing mouth post-use Review of Systems - Cardiovascular: Reports stable regional function - Respiratory: Denies recent shortness of breath - Endocrine: Reports stable diabetes control with previous HbA1c of 6.1% - Musculoskeletal: Reports chronic back pain - Hematologic: Reports feeling cold, associated with anemia Physical Exam Results - Echocardiogram in May 2024: EF 55-60%, mild LVH, grade 2 diastolic dysfunction, moderate aortic stenosis with mild regurgitation, aortic valve size 1.23 cm, ascending aorta 4.2 cm - Bloodwork July 07: Anemia noted - HbA1c April: 6.1% - Lipid profile July 08: LDL 46 mg/dL, triglycerides 50 mg/dL Plan The patient will continue with the current management of his multiple chronic conditions. This includes maintaining blood pressure control with metoprolol and amlodipine, diabetes management with metformin to keep HbA1c below 7%, and the continued use of a Ventolin inhaler for COPD. Anticoagulation therapy will continue for recurrent DVT management. Anemia will be monitored through regular blood tests, and cardiovascular health will be reviewed annually with echocardiograms. Cholesterol levels will remain controlled with atorvastatin. Maintaining holistic lifestyle management remains arreaga to the patient's treatment plan. Patient was informed and verbally consented to the use of an ambient scribe for clinic note documentation during this visit. Discussion Notes I discussed with the patient the importance of continuing his current medication regimen to manage chronic kidney disease, BPH, aortic stenosis, diabetes, COPD, and recurrent DVT. We also reviewed the necessity of regular echocardiograms to monitor aortic stenosis and aortic dilatation. I explained the need for regular blood work to check for anemia and reinforced the benefits of achieving an LDL goal of less than 100 mg/dL, which he currently meets with atorvastatin. I emphasized maintaining physical activity and proper inhaler use for COPD management. It was agreed upon to continue blood pressure medications and monitor glycemic levels with no immediate changes required. All treatment options and monitoring plans were discussed in detail with a consensus on continuing current management practices. Patient Instructions - Continue taking your prescribed medications as directed, including metformin, metoprolol, amlodipine, atorvastatin, and using the Ventolin inhaler as needed. - Make sure to rinse your mouth after using the inhaler. - Attend regular follow-up appointments for blood work to monitor your anemia and check your cholesterol levels. - Maintain an active lifestyle within your comfort and abilities. - Monitor symptoms and report any changes, particularly in breathing or if you feel more fatigued. - Schedule an annual echocardiogram to monitor your heart and aortic condition. Orders: Orders AMB Hemoglobin A1c Today Z13.9 - Encounter for screening, unspecified
[2024-08-02 14:49] VITALS: BP 124/70; PULSE 74; O2SAT 96; BMI 22.6
== END 2024-08-02 15:14 | disposition home or self-care (01) ==
LOC: HO.HMCH 14:46
PROVIDERS: PCP Internal Medicine; Visit Provider Internal Medicine
DX: E11.65 Type 2 diabetes mellitus with hyperglycemia (principal); I35.0 Nonrheumatic aortic (valve) stenosis; J43.9 Emphysema, unspecified; I82.409 Acute embolism and thrombosis of unspecified deep veins of unspecified lower extremity; I10 Essential (primary) hypertension; E78.5 Hyperlipidemia, unspecified; D64.9 Anemia, unspecified; M96.1 Postlaminectomy syndrome, not elsewhere classified; Z13.9 Encounter for screening, unspecified

== ENCOUNTER → 2024-08-02 14:45 | Outpatient (BNVA) | payer MEDICARE, MEDICAID, SELFPAY | PROVIDERS: PCP Internal Medicine; Visit Provider Internal Medicine | DX: E11.65 Type 2 diabetes mellitus with hyperglycemia (principal); I35.0 Nonrheumatic aortic (valve) stenosis; J43.9 Emphysema, unspecified; I82.409 Acute embolism and thrombosis of unspecified deep veins of unspecified lower extremity; I10 Essential (primary) hypertension; E78.5 Hyperlipidemia, unspecified; D64.9 Anemia, unspecified; M96.1 Postlaminectomy syndrome, not elsewhere classified | CPT/HCPCS: 83036; 96127; 99212 ==

== ENCOUNTER 2024-08-15 13:02 | Outpatient (AMB) | payer MEDICARE, MEDICAID, SELFPAY ==
[2024-08-15 13:08] LABS: Prothrombin Time Whole Bld POC 41.5 sec (11.1-13.5); ~PT, ~INR - Anti Coag Clinic 3.5 (0.9-1.1)
--- NOTE | 2024-08-15 13:16 | MHC.OFFVISCO ---
Intake Intake Visit Reasons: Anticoagulation Allergies doxycycline Allergy (Intermediate, Verified 08/15/24 13:03) Nausea and Vomiting Medication List - Last Reconciled 08/15/24 by Fouzia Mcginnis, RN amlodipine 10 mg PO DAILY ascorbic acid (vitamin C) 1 g PO DAILY atorvastatin 40 mg PO DAILY blood pressure monitor (Blood Pressure Kit) As directed blood sugar diagnostic (OneTouch Verio test strips) one time daily blood-glucose meter ([employer] Verio Meter) To check blood glucose once daily budesonide-formoterol 160-4.5 mcg/actuation (Symbicort) 2 puffs PO BID cholecalciferol (vitamin D3) 25 mcg PO DAILY cilostazol 100 mg PO BID cyanocobalamin (vitamin B-12) (Vitamin B-12) 250 mcg PO DAILY ferrous sulfate (Feosol) 325 mg PO DAILY fluticasone propionate 50 mcg/actuation 2 sprays intranasal DAILY gabapentin 300 mg PO TID 90 days [garlic clove 1 dose PO NEEDED] ipratropium-albuterol 0.5 mg-3 mg(2.5 mg base)/3 mL 3 mL inhalation Q6H lancets ([employer]Touch Delica Plus Lancet) To test bg daily lancets As directed metformin 500 mg PO DAILY metoprolol succinate ER 25 mg PO DAILY naloxone 4 mg/actuation (Narcan) 4 mg intranasal Q2M 1 day Ventolin HFA 90 mcg/actuation (albuterol sulfate) 2 puffs inhalation Q4-6H PRN NS walker (Ultra-Light Rollator misc) As directed, ambulate at all times with walker warfarin 5 mg See Protocol PO DAILY warfarin 2.5 mg See Protocol PO DAILY 90 days Nursing Note INR: 3.5 out of therapeutic range of 2-3 Has been taking a lot of tylenol Medications and supplements reviewed Patient status: no changes Medications or supplements: no changes Diet: usual diet for pt Denies any signs and symptoms of bleeding or clotting or unusual bruising Bleeding, bruising, clotting discussed Nutritional guidance given: to have a serving of greens today Dose: 2.5mg today, 2.5mg tomorrow then start 5mg every Mon, Wed & Fri and 2.5mg the other 4 days. F/U INR Date: 1 week?? Patient verbalizing understanding of instructions given. Anti-Coag Initial Assessment Social Hx Patient Tobacco Use Status: Never used Tobacco Tobacco use type: Cigarette alcohol intake: former Alcohol intake frequency: does not drink Coding Level of Care Code Est Patient Level 1 Diagnoses Current use of anticoagulant therapy Z79.01 Assessment & Plan Assessment & Plan (1) Current use of anticoagulant therapy: Code(s): Z79.01 - [facility] (current) 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
== END 2024-08-15 13:24 | disposition home or self-care (01) ==
LOC: HO.ACS 13:02
PROVIDERS: PCP Internal Medicine; Visit Provider Internal Medicine Medical Oncology
DX: Z79.01 Long term (current) use of anticoagulants (principal)

== ENCOUNTER → 2024-08-15 13:02 | Outpatient (BNVA) | payer MEDICARE, MEDICAID, SELFPAY | PROVIDERS: PCP Internal Medicine; Visit Provider Internal Medicine Medical Oncology | DX: I82.503 Chronic embolism and thrombosis of unspecified deep veins of lower extremity, bilateral (principal); Z79.01 Long term (current) use of anticoagulants; Z51.81 Encounter for therapeutic drug level monitoring | CPT/HCPCS: 85610; 99211 ==

== ENCOUNTER 2024-08-22 13:15 | Outpatient (AMB) | payer MEDICARE, MEDICAID, SELFPAY ==
[2024-08-22 13:23] LABS: Prothrombin Time Whole Bld POC 31.5 sec (11.1-13.5); ~PT, ~INR - Anti Coag Clinic 2.6 (0.9-1.1)
--- NOTE | 2024-08-22 13:28 | MHC.OFFVISCO ---
Intake Intake Visit Reasons: Anticoagulation Allergies doxycycline Allergy (Intermediate, Verified 08/22/24 13:16) Nausea and Vomiting Medication List - Last Reconciled 08/22/24 by Fouzia Mcginnis RN amlodipine 10 mg PO DAILY ascorbic acid (vitamin C) 1 g PO DAILY atorvastatin 40 mg PO DAILY blood pressure monitor (Blood Pressure Kit) As directed blood sugar diagnostic (OneTouch Verio test strips) one time daily blood-glucose meter ([employer]Touch Verio Meter) To check blood glucose once daily budesonide-formoterol 160-4.5 mcg/actuation (Symbicort) 2 puffs PO BID cholecalciferol (vitamin D3) 25 mcg PO DAILY cilostazol 100 mg PO BID cyanocobalamin (vitamin B-12) (Vitamin B-12) 250 mcg PO DAILY ferrous sulfate (Feosol) 325 mg PO DAILY fluticasone propionate 50 mcg/actuation 2 sprays intranasal DAILY gabapentin 300 mg PO TID 90 days [garlic clove 1 dose PO NEEDED] ipratropium-albuterol 0.5 mg-3 mg(2.5 mg base)/3 mL 3 mL inhalation Q6H lancets ([employer]Touch Delica Plus Lancet) To test bg daily lancets As directed metformin 500 mg PO DAILY metoprolol succinate ER 25 mg PO DAILY naloxone 4 mg/actuation (Narcan) 4 mg intranasal Q2M 1 day Ventolin HFA 90 mcg/actuation (albuterol sulfate) 2 puffs inhalation Q4-6H PRN NS walker (Ultra-Light Rollator misc) As directed, ambulate at all times with walker warfarin 5 mg See Protocol PO DAILY warfarin 2.5 mg See Protocol PO DAILY 90 days Nursing Note INR: 2.6 in therapeutic range of 2-3 Medications and supplements reviewed No changes in health, diet, medications, or supplements, Denies any signs and symptoms of bleeding or bruising or clotting. Bleeding, bruising, clotting discussed Nutritional guidance given to balance reds and greens Dose: 2.5mg X 4 days and 5mg X 3 days (M/W/F) F/U INR: 1 week Patient verbalizes understanding of instructions given Anti-Coag Initial Assessment Social Hx Patient Tobacco Use Status: Never used Tobacco Tobacco use type: Cigarette alcohol intake: former Alcohol intake frequency: does not drink Coding Level of Care Code Est Patient Level 1 Diagnoses Current use of anticoagulant therapy Z79.01 Results AMB INR Fingerstick AMB INR Fingerstick 2.6 Last Edit by Fouzia Mcginnis RN on 08/22/24 13:25 interface delay Assessment & Plan Assessment & Plan (1) Current use of anticoagulant therapy: Code(s): Z79.01 - intermediate designer (current) 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
== END 2024-08-22 13:38 | disposition home or self-care (01) ==
LOC: HO.ACS 13:15
PROVIDERS: PCP Internal Medicine; Visit Provider Internal Medicine Medical Oncology
DX: Z79.01 Long term (current) use of anticoagulants (principal)

== ENCOUNTER → 2024-08-22 13:15 | Outpatient (BNVA) | payer MEDICARE, MEDICAID, SELFPAY | PROVIDERS: PCP Internal Medicine; Visit Provider Internal Medicine Medical Oncology | DX: I82.503 Chronic embolism and thrombosis of unspecified deep veins of lower extremity, bilateral (principal); Z79.01 Long term (current) use of anticoagulants; Z51.81 Encounter for therapeutic drug level monitoring | CPT/HCPCS: 85610; 99211 ==

== ENCOUNTER 2024-09-01 13:21 | Outpatient (AMB) | payer MEDICARE, MEDICAID, SELFPAY ==
[2024-09-01 13:39] LABS: Prothrombin Time Whole Bld POC 35.6 sec (11.1-13.5)
--- NOTE | 2024-09-01 13:44 | MHC.OFFVISCO ---
Intake Intake Visit Reasons: Anticoagulation Allergies doxycycline Allergy (Intermediate, Verified 09/01/24 13:34) Nausea and Vomiting Medication List - Last Reconciled 09/01/24 by Fouzia Mcginnis RN amlodipine 10 mg PO DAILY ascorbic acid (vitamin C) 1 g PO DAILY atorvastatin 40 mg PO DAILY blood pressure monitor (Blood Pressure Kit) As directed blood sugar diagnostic (OneTouch Verio test strips) one time daily blood-glucose meter (farmflouch Verio Meter) To check blood glucose once daily budesonide-formoterol 160-4.5 mcg/actuation (Symbicort) 2 puffs PO BID cholecalciferol (vitamin D3) 25 mcg PO DAILY cilostazol 100 mg PO BID cyanocobalamin (vitamin B-12) (Vitamin B-12) 250 mcg PO DAILY ferrous sulfate (Feosol) 325 mg PO DAILY fluticasone propionate 50 mcg/actuation 2 sprays intranasal DAILY gabapentin 300 mg PO TID 90 days [garlic clove 1 dose PO NEEDED] ipratropium-albuterol 0.5 mg-3 mg(2.5 mg base)/3 mL 3 mL inhalation Q6H lancets (NarusTouch Delica Plus Lancet) To test bg daily lancets As directed metformin 500 mg PO DAILY metoprolol succinate ER 25 mg PO DAILY naloxone 4 mg/actuation (Narcan) 4 mg intranasal Q2M 1 day Ventolin HFA 90 mcg/actuation (albuterol sulfate) 2 puffs inhalation Q4-6H PRN NS walker (Ultra-Light Rollator misc) As directed, ambulate at all times with walker warfarin 5 mg See Protocol PO DAILY warfarin 2.5 mg See Protocol PO DAILY 90 days Nursing Note INR: 3.0 in therapeutic range of 2-3 Medications and supplements reviewed No changes in health, diet, medications, or supplements, Denies any signs and symptoms of bleeding or bruising or clotting. Bleeding, bruising, clotting discussed Nutritional guidance given to have a serving of greens today Dose: 2.5mg X 4 days and 5mg X 3 days F/U INR: 2 weeks Patient verbalizes understanding of instructions given Anti-Coag Initial Assessment Social Hx Patient Tobacco Use Status: Never used Tobacco Tobacco use type: Cigarette alcohol intake: former Alcohol intake frequency: does not drink Coding Level of Care Code Est Patient Level 1 Diagnoses Current use of anticoagulant therapy Z79.01 Assessment & Plan Assessment & Plan (1) Current use of anticoagulant therapy: Code(s): Z79.01 - FDC (current) 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
== END 2024-09-01 13:46 | disposition home or self-care (01) ==
LOC: HO.ACS 13:21
PROVIDERS: PCP Internal Medicine; Visit Provider Internal Medicine Medical Oncology
DX: Z79.01 Long term (current) use of anticoagulants (principal)

== ENCOUNTER → 2024-09-01 13:21 | Outpatient (BNVA) | payer MEDICARE, MEDICAID, SELFPAY | PROVIDERS: PCP Internal Medicine; Visit Provider Internal Medicine Medical Oncology | DX: Z79.01 Long term (current) use of anticoagulants (principal) | CPT/HCPCS: 85610; 99211 ==

== ENCOUNTER → 2024-09-15 13:32 | Outpatient (BNVA) | payer MEDICARE, MEDICAID, SELFPAY | PROVIDERS: PCP Internal Medicine; Visit Provider Internal Medicine Medical Oncology | DX: I82.503 Chronic embolism and thrombosis of unspecified deep veins of lower extremity, bilateral (principal); Z79.01 Long term (current) use of anticoagulants; Z51.81 Encounter for therapeutic drug level monitoring | CPT/HCPCS: 85610; 99211 ==

== ENCOUNTER 2024-09-27 13:00 | Outpatient (AMB) | payer MEDICARE, MEDICAID, SELFPAY ==
[2024-09-27 13:16] VITALS: BP 112/68; PULSE 68; O2SAT 96; BMI 22.3
--- NOTE | 2024-09-27 13:16 | MHC.OFFVIS ---
Vital Signs 09/27/24 13:16 Height 6 ft Weight 164 lb 3.91 oz BMI 22.3 BP 112/68 Blood Pressure Location Lt brachial Position Sitting Pulse 68 Pulse Source Pulse Oximeter Pulse Oximetry (%) 96 Oxygen Delivery Method Room Air Intake Visit Reasons: COPD Intake Note: pt is here for follow up and nothing is worrisome to him but a dry cough that doesn't seem to want to go away, sometimes he has some chest issues. Inspector Balance Truing Required: No Allergies doxycycline Allergy (Intermediate, Verified 09/27/24 13:30) Nausea and Vomiting Medication List - Last Reconciled 09/27/24 by Main Luis MD amlodipine 10 mg PO DAILY ascorbic acid (vitamin C) 1 g PO DAILY atorvastatin 40 mg PO DAILY blood pressure monitor (Blood Pressure Kit) As directed blood sugar diagnostic ([employer] Verio test strips) one time daily blood-glucose meter ([employer] Verio Meter) To check blood glucose once daily budesonide-formoterol 160-4.5 mcg/actuation (Symbicort) 2 puffs PO BID cholecalciferol (vitamin D3) 25 mcg PO DAILY cilostazol 100 mg PO BID cyanocobalamin (vitamin B-12) (Vitamin B-12) 250 mcg PO DAILY ferrous sulfate (Feosol) 325 mg PO DAILY fluticasone propionate 50 mcg/actuation 2 sprays intranasal DAILY gabapentin 300 mg PO TID 90 days [garlic clove 1 dose PO NEEDED] ipratropium-albuterol 0.5 mg-3 mg(2.5 mg base)/3 mL 3 mL inhalation Q6H lancets ([employer]uch Delica Plus Lancet) To test bg daily lancets As directed metformin 500 mg PO DAILY metoprolol succinate ER 25 mg PO DAILY naloxone 4 mg/actuation (Narcan) 4 mg intranasal Q2M 1 day Ventolin HFA 90 mcg/actuation (albuterol sulfate) 2 puffs inhalation Q4-6H PRN NS walker (Ultra-Light Rollator misc) As directed, ambulate at all times with walker warfarin 5 mg See Protocol PO DAILY warfarin 2.5 mg See Protocol PO DAILY 90 days Do you need a note to return to daycare/school/sports/work: No HPI HPI COPD: Details: This elderly very pleasant gentleman comes for his follow-up after 6 months. He is a case of chronic obstructive pulmonary disease. Luckily he has had no acute Infection during the last 6 months . Continues to use Symbicort 160-4.5 2 puffs b.i.d. and he needs to use albuterol just once in a while. His main problem is dry cough but during my interaction with him I did not hear him cough. Also complains of dry mouth most of the time which is probably due to multi factors. 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, without long-term current use of insulin Effusion of right knee joint Contusion of right knee Hemarthrosis involving knee joint Left shoulder pain Appetite impaired Hearing difficulty Weight loss Cough Non-rheumatic aortic stenosis Chronic pain syndrome Postlaminectomy syndrome Diabetic polyneuropathy Gastric carcinoma Peripheral vascular disease Pneumonia Hyperlipidemia LDL goal <70 COPD (chronic obstructive pulmonary disease) Type 2 diabetes mellitus with hyperglycemia Vitamin B12 deficiency Bronchiectasis Moderate aortic stenosis Compression fracture of L1 lumbar vertebra Recurrent deep vein thrombosis (DVT) Peripheral vascular disease History of gastric cancer BPH (benign prostatic hyperplasia) COPD (chronic obstructive pulmonary disease) Joint pain Surgical History History of colonoscopy Amputation of toe of left foot History of gastrectomy Family History Father Diabetes Cancer Mother Diabetes Brother Lung cancer Social History Household Members: None Household Members Other:: lives alone son checks by daily Housing: Apartment Are you a primary daytime caregiver to a significant other at home: No Do you presently have visiting nurse or other home services: No Alcohol intake: former Year quit: 1970 Patient Tobacco Use Status: Never used Tobacco Tobacco use type: Cigarette e-Cigarette/Vaping Use: Never Used Second Hand Smoke Exposure: No service: No Current occupational status: retired Cognitive needs: Yes (walker/power chair) Hearing needs: No Vision needs: Yes (reading) Review of Systems Const All systems reviewed & are unremarkable except as noted in HPI and below Denies poor appetite and Denies weakness Eyes Denies no additional complaints ENT Reports Normal hearing present, Denies dizziness, Reports nasal congestion (MILD ), Denies tinnitus and Denies sore throat Card Denies chest pain, Denies syncope, Denies rapid heart rate and Denies dyspnea Resp Denies cough and Denies dyspnea GI Denies change in stool character, Reports constipation, Denies diarrhea, Denies nausea and Denies vomiting Denies dysuria and Denies urinary frequency Musc Reports back pain and Reports stiffness Skin/Breast Reports system reviewed and no additional complaints, except as documented Neuro Reports Normal hearing present, Denies confusion, Denies dizziness, Denies syncope and Denies weakness Psych Denies confusion Endo Reports other (Being treated for diabetes mellitus) Physical Exam Vital Signs: Last Vital Signs Pulse 68 09/27/24 13:16 BP 112/68 09/27/24 13:16 Pulse Ox 96 09/27/24 13:16 Oxygen Delivery Method Room Air 09/27/24 13:16 BMI result Body Mass Index 22.3 Const General: No confusion Orientation/consciousness: No confusion HEENT Head: Yes normal to inspection General nose exam: No nasal polyps present and No nasal discharge present Face and sinus: Yes sinuses nontender Mouth: oropharynx normal Throat: Yes posterior oropharynx normal Eyes General: appearance normal, both eyes and all related structures Neck Neck: Yes normal visual inspection, Yes no lymphadenopathy, Yes trachea midline and Yes no JVD Thyroid: Thyroid normal Chest Chest palpation & inspection: normal inspection of the chest, normal palpation of entire chest wall and no tenderness Resp Other: Percussion note resonant on both sides. Breath sounds are slightly diminished and prolonged expiratory phase on both sides. No wheezes rhonchi or crepitations are heard today . Cardio Palpation: normal PMI Rate: regular rate Rhythm: regular rhythm Heart sounds: no gallops and no murmurs GI Palpation (GI): Soft to palpation, nontender, No hepatosplenomegaly present and no masses Auscultation: normal bowel sounds Back/Spine/Pelvis Thoracic/Lumbar Spine: thoracic and lumbar spine normal to inspection, thoraco-lumbar ROM limited and thoraco-lumbar spasm Skin General skin exam: no rashes or lesions noted Neuro General: No confusion Cranial nerves: Yes Normal hearing present Extrem General: Yes normal to inspection, Yes no clubbing, cyanosis or edema and Yes no calf tenderness Psych Mental Status: mental status grossly normal Speech and movement: Normal speech and movement present Assessment & Plan Assessment & Plan (1) COPD (chronic obstructive pulmonary disease): Comment: This patient is well known to have chronic obstructive pulmonary disease, moderately severe. He is staying stable with the current medical regimen , except for intermittent increase in cough and mucus production. Code(s): J44.9 - Chronic obstructive pulmonary disease, unspecified Category: Medical Qualifiers: COPD type: emphysema Emphysema type: unspecified Qualified Code(s): J43.9 - Emphysema, unspecified Plan: Continue to use Symbicort 160-4.5 2 puffs b.i.d.. Gargle the throat, very thoroughly after using the Symbicort inhaler. Albuterol HFA 2 puffs Q 4-6 hours p.r.n. Coding Level of Care Code Est Pt Level 3 (63045) Diagnoses Pulmonary emphysema, unspecified emphysema type J43.9 COPD type: emphysema Emphysema type: unspecified
== END 2024-09-27 13:37 | disposition home or self-care (01) ==
LOC: HO.HPS 13:00
PROVIDERS: PCP Internal Medicine; Visit Provider Internal Medicine
DX: J43.9 Emphysema, unspecified (principal)
CPT/HCPCS: 99213

== ENCOUNTER → 2024-09-27 13:00 | Outpatient (BNVA) | payer MEDICARE, MEDICAID, SELFPAY | PROVIDERS: PCP Internal Medicine; Visit Provider Internal Medicine | DX: R05.3 Chronic cough (principal); J44.9 Chronic obstructive pulmonary disease, unspecified; J43.9 Emphysema, unspecified; R68.2 Dry mouth, unspecified | CPT/HCPCS: 99212 ==

== ENCOUNTER 2024-10-06 13:04 | Outpatient (AMB) | payer MEDICARE, MEDICAID, SELFPAY ==
--- NOTE | 2024-10-06 13:22 | MHC.OFFVISCO ---
Intake Intake Visit Reasons: Anticoagulation Allergies doxycycline Allergy (Intermediate, Verified 10/06/24 13:06) Nausea and Vomiting Medication List - Last Reconciled 10/06/24 by Rakel Ngo RN acetaminophen ER (Tylenol Arthritis Pain) 650 mg PO Q8H 30 days amlodipine 10 mg PO DAILY ascorbic acid (vitamin C) 1 g PO DAILY atorvastatin 40 mg PO DAILY blood pressure monitor (Blood Pressure Kit) As directed blood sugar diagnostic ([employer] Verio test strips) one time daily blood-glucose meter ([employer] Verio Meter) To check blood glucose once daily budesonide-formoterol 160-4.5 mcg/actuation (Symbicort) 2 puffs PO BID cholecalciferol (vitamin D3) 25 mcg PO DAILY cilostazol 100 mg PO BID cyanocobalamin (vitamin B-12) (Vitamin B-12) 250 mcg PO DAILY ferrous sulfate (Feosol) 325 mg PO DAILY fluticasone propionate 50 mcg/actuation 2 sprays intranasal DAILY gabapentin 300 mg PO TID 90 days [garlic clove 1 dose PO NEEDED] ipratropium-albuterol 0.5 mg-3 mg(2.5 mg base)/3 mL 3 mL inhalation Q6H lancets ([employer] Delica Plus Lancet) To test bg daily lancets As directed metformin 500 mg PO DAILY metoprolol succinate ER 25 mg PO DAILY naloxone 4 mg/actuation (Narcan) 4 mg intranasal Q2M 1 day Ventolin HFA 90 mcg/actuation (albuterol sulfate) 2 puffs inhalation Q4-6H PRN NS walker (Ultra-Light Rollator misc) As directed, ambulate at all times with walker warfarin 5 mg See Protocol PO DAILY warfarin 2.5 mg See Protocol PO DAILY 90 days Nursing Note INR: 1.5 OUT therapeutic range 2.0-3.0 Medications and supplements reviewed No changes in health, diet, medications, or supplements, Denies any signs and symptoms of bleeding or bruising or clotting. Bleeding, bruising, clotting discussed Nutritional guidance given- AVOID GREENS X 3 DAYS, EAT ORANGE AND REDS TO HELP RESUME THERAPEUTIC RANGE Dose: 7.5MG TODAY THEN RESUME USUAL DOSE 5MG MWF/ 2.5MG X 4 DAYS F/U INR: 10/10/2024 Patient verbalizes undestanding of instructions given Anti-Coag Initial Assessment Social Hx Patient Tobacco Use Status: Never used Tobacco Tobacco use type: Cigarette alcohol intake: former Alcohol intake frequency: does not drink Coding Level of Care Code Est Patient Level 1 Diagnoses Current use of anticoagulant therapy Z79.01 Results AMB INR Fingerstick AMB INR Fingerstick 1.5 Last Edit by Rakel Ngo RN on 10/06/24 13:13 MD NOTIFIED Rakel Ngo 10/06/24 13:13 MANUAL ENTRY Assessment & Plan Assessment & Plan (1) Current use of anticoagulant therapy: Code(s): Z79.01 - superintendent terminal (current) 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
[2024-10-06 13:41] LABS: Prothrombin Time Whole Bld POC 18.5 sec (11.1-13.5); ~PT, ~INR - Anti Coag Clinic 1.5 (0.9-1.1)
== END 2024-10-06 13:28 | disposition home or self-care (01) ==
LOC: HO.ACS 13:04
PROVIDERS: PCP Internal Medicine; Visit Provider Internal Medicine Medical Oncology
DX: Z79.01 Long term (current) use of anticoagulants (principal)

== ENCOUNTER → 2024-10-06 13:04 | Outpatient (BNVA) | payer MEDICARE, MEDICAID, SELFPAY | PROVIDERS: PCP Internal Medicine; Visit Provider Internal Medicine Medical Oncology | DX: I82.503 Chronic embolism and thrombosis of unspecified deep veins of lower extremity, bilateral (principal); Z79.01 Long term (current) use of anticoagulants; Z51.81 Encounter for therapeutic drug level monitoring | CPT/HCPCS: 85610; 99211 ==

== ENCOUNTER 2024-10-10 14:38 | Outpatient (AMB) | payer MEDICARE, MEDICAID, SELFPAY ==
[2024-10-10 15:00] LABS: Prothrombin Time Whole Bld POC 13.0 sec (11.1-13.5); ~PT, ~INR - Anti Coag Clinic 1.1 (0.9-1.1)
--- NOTE | 2024-10-10 15:03 | MHC.OFFVISCO ---
Intake Intake Visit Reasons: Anticoagulation Allergies doxycycline Allergy (Intermediate, Verified 10/10/24 14:54) Nausea and Vomiting Medication List - Last Reconciled 10/10/24 by Fouzia Mcginnis RN acetaminophen ER (Tylenol Arthritis Pain) 650 mg PO Q8H 30 days amlodipine 10 mg PO DAILY ascorbic acid (vitamin C) 1 g PO DAILY atorvastatin 40 mg PO DAILY blood pressure monitor (Blood Pressure Kit) As directed blood sugar diagnostic ([employer] Verio test strips) one time daily blood-glucose meter (Social CollectiveTouch Verio Meter) To check blood glucose once daily budesonide-formoterol 160-4.5 mcg/actuation (Symbicort) 2 puffs PO BID cholecalciferol (vitamin D3) 25 mcg PO DAILY cilostazol 100 mg PO BID cyanocobalamin (vitamin B-12) (Vitamin B-12) 250 mcg PO DAILY enoxaparin (Lovenox) 70 mg See Protocol subcut Q12H 5 days ferrous sulfate (Feosol) 325 mg PO DAILY fluticasone propionate 50 mcg/actuation 2 sprays intranasal DAILY gabapentin 300 mg PO TID 90 days [garlic clove 1 dose PO NEEDED] ipratropium-albuterol 0.5 mg-3 mg(2.5 mg base)/3 mL 3 mL inhalation Q6H lancets ([employer] Delica Plus Lancet) To test bg daily lancets As directed metformin 500 mg PO DAILY metoprolol succinate ER 25 mg PO DAILY naloxone 4 mg/actuation (Narcan) 4 mg intranasal Q2M 1 day Ventolin HFA 90 mcg/actuation (albuterol sulfate) 2 puffs inhalation Q4-6H PRN NS walker (Ultra-Light Rollator misc) As directed, ambulate at all times with walker warfarin 5 mg See Protocol PO DAILY warfarin 2.5 mg See Protocol PO DAILY 90 days Nursing Note INR: 1.1 out of therapeutic range of 2-3 Pt did not follow instructions given at last visit on 10/06/24 when the INR was 1.5. He started lovenox bid and took the increased dose of warfarin but then continued lovenox and stopped the warfarin. Explained to pt why he needs to take both meds at the same time. He missed 3 doases for a total of 10mg. Medications and supplements reviewed Patient status: feels well but states he is tired. Medications or supplements: as above Diet: has been holding greens Denies any signs and symptoms of bleeding or clotting or unusual bruising Bleeding, bruising, clotting discussed Nutritional guidance given: to continue to hold greens Dose: 7.5mg today & tomorrow (usual dose is 5mg and 2.5mg) then usual dose of 5mg and then usual dose of 2.5mg then retest. Pt will also continue lovenox as ordered bid. Son with pt and states he gives the lovenox. F/U INR Date: 10/14/24?? Patient verbalizing understanding of instructions given. T/C to pcp Dr Barrientos's office. Spoke to [facility]. INR, dosing plan and next retest date reported. Anti-Coag Initial Assessment Social Hx Patient Tobacco Use Status: Never used Tobacco Tobacco use type: Cigarette alcohol intake: former Alcohol intake frequency: does not drink Coding Level of Care Code Est Patient Level 1 Diagnoses Current use of anticoagulant therapy Z79.01 Results AMB INR Fingerstick AMB INR Fingerstick 1.1 Last Edit by Fouzia Mcginnis RN on 10/10/24 14:59 interface delay Assessment & Plan Assessment & Plan (1) Current use of anticoagulant therapy: Code(s): Z79.01 - custodial (current) 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
== END 2024-10-10 15:21 | disposition home or self-care (01) ==
LOC: HO.ACS 14:38
PROVIDERS: PCP Internal Medicine; Visit Provider Internal Medicine Medical Oncology
DX: Z79.01 Long term (current) use of anticoagulants (principal)

== ENCOUNTER → 2024-10-10 14:38 | Outpatient (BNVA) | payer MEDICARE, MEDICAID, SELFPAY | PROVIDERS: PCP Internal Medicine; Visit Provider Internal Medicine Medical Oncology | DX: Z79.01 Long term (current) use of anticoagulants (principal) | CPT/HCPCS: 85610; 99211 ==

== ENCOUNTER 2024-10-14 13:07 | Outpatient (AMB) | payer MEDICARE, MEDICAID, SELFPAY ==
[2024-10-14 13:55] LABS: Prothrombin Time Whole Bld POC 23.8 sec (11.1-13.5); ~PT, ~INR - Anti Coag Clinic 2.0 (0.9-1.1)
--- NOTE | 2024-10-14 14:00 | MHC.OFFVISCO ---
Intake Intake Visit Reasons: Anticoagulation Allergies doxycycline Allergy (Intermediate, Verified 10/14/24 13:38) Nausea and Vomiting Medication List - Last Reconciled 10/14/24 by Rakel Ngo RN acetaminophen ER (Tylenol Arthritis Pain) 650 mg PO Q8H 30 days amlodipine 10 mg PO DAILY ascorbic acid (vitamin C) 1 g PO DAILY atorvastatin 40 mg PO DAILY blood pressure monitor (Blood Pressure Kit) As directed blood sugar diagnostic ([employer] Verio test strips) one time daily blood-glucose meter ([employer] Verio Meter) To check blood glucose once daily budesonide-formoterol 160-4.5 mcg/actuation (Symbicort) 2 puffs PO BID cholecalciferol (vitamin D3) 25 mcg PO DAILY cilostazol 100 mg PO BID cyanocobalamin (vitamin B-12) (Vitamin B-12) 250 mcg PO DAILY enoxaparin (Lovenox) 70 mg See Protocol subcut Q12H 5 days ferrous sulfate (Feosol) 325 mg PO DAILY fluticasone propionate 50 mcg/actuation 2 sprays intranasal DAILY gabapentin 300 mg PO TID 90 days [garlic clove 1 dose PO NEEDED] ipratropium-albuterol 0.5 mg-3 mg(2.5 mg base)/3 mL 3 mL inhalation Q6H lancets ([employer] Delica Plus Lancet) To test bg daily lancets As directed metformin 500 mg PO DAILY metoprolol succinate ER 25 mg PO DAILY naloxone 4 mg/actuation (Narcan) 4 mg intranasal Q2M 1 day Ventolin HFA 90 mcg/actuation (albuterol sulfate) 2 puffs inhalation Q4-6H PRN NS walker (Ultra-Light Rollator misc) As directed, ambulate at all times with walker warfarin 5 mg See Protocol PO DAILY warfarin 2.5 mg See Protocol PO DAILY 90 days Nursing Note INR: 2.0 in therapeutic range- will stop lovenox today Medications and supplements reviewed Pt c/o of cough for about 1 month - sputum is yellow -no fever, has f/u with PCP in almost 12 days- enc to call for sooner appt and notify [facility] of any antbx Enc to drink warm fluids especially water to keep secretions thin enough to cough up No changes in diet, medications, or supplements, Denies any signs and symptoms of bleeding or bruising or clotting. Bleeding, bruising, clotting discussed Nutritional guidance given - avoid greens today, eat orange and reds to help keep INR over 2.0 Dose: 5mg today and Thursday to keep INR up over 2.0 then resume 5mg mwf/ 2.5mg x 4 days F/U INR: 12 days on same day as another appt Patient and Son verbalizes understanding of instructions given Anti-Coag Initial Assessment Social Hx Patient Tobacco Use Status: Never used Tobacco Tobacco use type: Cigarette alcohol intake: former Alcohol intake frequency: does not drink Coding Level of Care Code Est Patient Level 1 Diagnoses Current use of anticoagulant therapy Z79.01 Results AMB INR Fingerstick AMB INR Fingerstick 2.0 Last Edit by Rakel Ngo RN on 10/14/24 13:48 manual entry Assessment & Plan Assessment & Plan (1) Current use of anticoagulant therapy: Code(s): Z79.01 - meterman (current) 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
== END 2024-10-14 14:06 | disposition home or self-care (01) ==
LOC: HO.ACS 13:07
PROVIDERS: PCP Internal Medicine; Visit Provider Internal Medicine Medical Oncology
DX: Z79.01 Long term (current) use of anticoagulants (principal)

== ENCOUNTER → 2024-10-14 13:07 | Outpatient (BNVA) | payer MEDICARE, MEDICAID, SELFPAY | PROVIDERS: PCP Internal Medicine; Visit Provider Internal Medicine Medical Oncology | DX: Z79.01 Long term (current) use of anticoagulants (principal) | CPT/HCPCS: 85610; 99211 ==

== ENCOUNTER 2024-10-26 10:57 | Outpatient (REF) | payer MEDICARE, MEDICAID, SELFPAY ==
--- NOTE | ~2024-10-26 | XR_ITS ---
EXAMINATION: XR CHEST CLINICAL INFORMATION: J43.9 - Emphysema, unspecified COMPARISON: May 14, 2024 TECHNIQUE: 2 views of the chest were obtained. FINDINGS: Pulmonary reticular pattern. Elevated left hemidiaphragm, unchanged. Cardiomediastinal silhouette size is normal. Calcified plaque thoracic aorta. Mild prominence of the interstitial markings. No gross pleural effusion or pneumothorax. Osteopenia versus osteoporosis. Multilevel thoracolumbar spondylosis. Degenerative changes in both shoulders. XR/XR chest 2V IMPRESSION: Concerning acute on chronic airspace disease. Left-sided phrenic paralysis/paresis, chronic. Electronically signed by: Mau Tolentino MD 10/26/2024 12:24 PM EDT
== END 2024-10-26 10:58 | disposition home or self-care (01) ==
LOC: HO.XRAY 10:57
PROVIDERS: PCP Internal Medicine; Visit Provider Internal Medicine
DX: E11.65 Type 2 diabetes mellitus with hyperglycemia (principal); J43.9 Emphysema, unspecified; E78.5 Hyperlipidemia, unspecified; I12.9 Hypertensive chronic kidney disease with stage 1 through stage 4 chronic kidney disease, or unspecified chronic kidney disease; E11.22 Type 2 diabetes mellitus with diabetic chronic kidney disease; N18.32 Chronic kidney disease, stage 3b; I35.0 Nonrheumatic aortic (valve) stenosis; M96.1 Postlaminectomy syndrome, not elsewhere classified; I82.503 Chronic embolism and thrombosis of unspecified deep veins of lower extremity, bilateral; Z51.81 Encounter for therapeutic drug level monitoring; Z79.01 Long term (current) use of anticoagulants
CPT/HCPCS: 71046; 82570; 83036; 85610; 99211; 99212

== ENCOUNTER 2024-10-26 10:57 | Outpatient (AMB) | payer MEDICARE, MEDICAID, SELFPAY ==
--- NOTE | 2024-10-26 11:21 | MHC.PC.OV ---
Vital Signs 10/26/24 11:22 Height 6 ft Weight 173 lb BMI 23.5 BP 122/74 Blood Pressure Location Lt brachial Position Sitting Respiration 18 Pulse 73 Pulse Source Pulse Oximeter Temp 97.3 F Temp Source Temporal Artery Scan Pulse Oximetry (%) 96 Oxygen Delivery Method Room Air Intake Visit Reasons: DM Accompanied by: Son Allergies doxycycline Allergy (Intermediate, Verified 10/26/24 13:24) Nausea and Vomiting Medication List - Last Reconciled 10/26/24 by Kee Barrientos MD acetaminophen ER (Tylenol Arthritis Pain) 650 mg PO Q8H 30 days amlodipine 10 mg PO DAILY ascorbic acid (vitamin C) 1 g PO DAILY atorvastatin 40 mg PO DAILY blood pressure monitor (Blood Pressure Kit) As directed blood sugar diagnostic ([employer] Verio test strips) one time daily blood-glucose meter ([employer] Verio Meter) To check blood glucose once daily budesonide-formoterol 160-4.5 mcg/actuation (Symbicort) 2 puffs PO BID cholecalciferol (vitamin D3) 25 mcg PO DAILY cilostazol 100 mg PO BID cyanocobalamin (vitamin B-12) (Vitamin B-12) 250 mcg PO DAILY enoxaparin (Lovenox) 70 mg See Protocol subcut Q12H 5 days ferrous sulfate (Feosol) 325 mg PO DAILY fluticasone propionate 50 mcg/actuation 2 sprays intranasal DAILY gabapentin 300 mg PO TID 90 days [garlic clove 1 dose PO NEEDED] ipratropium-albuterol 0.5 mg-3 mg(2.5 mg base)/3 mL 3 mL inhalation Q6H lancets ([employer] Delica Plus Lancet) To test bg daily lancets As directed metformin 500 mg PO DAILY metoprolol succinate ER 25 mg PO DAILY naloxone 4 mg/actuation (Narcan) 4 mg intranasal Q2M 1 day Ventolin HFA 90 mcg/actuation (albuterol sulfate) 2 puffs inhalation Q4-6H PRN NS walker (Ultra-Light Rollator misc) As directed, ambulate at all times with walker warfarin 5 mg See Protocol PO DAILY warfarin 2.5 mg See Protocol PO DAILY 90 days Tobacco use date assessed: 10/26/24 Fall risk assessment: No Falls in past year Last assessed Fall Risk: 10/26/24 Dental Screening Dental Screen Date: 10/26/24 Did you have a dental visit in the last 12 months?: Yes Did you have a dental problem in the last 6 months where you did not have access to dental care?: No Was dental information given to patient?: Patient has dentist [facility] 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, without long-term current use of insulin Effusion of right knee joint Contusion of right knee Hemarthrosis involving knee joint Left shoulder pain Appetite impaired Hearing difficulty Weight loss Cough Non-rheumatic aortic stenosis Chronic pain syndrome Postlaminectomy syndrome Diabetic polyneuropathy Gastric carcinoma Peripheral vascular disease Pneumonia Hyperlipidemia LDL goal <70 COPD (chronic obstructive pulmonary disease) Type 2 diabetes mellitus with hyperglycemia Vitamin B12 deficiency Bronchiectasis Moderate aortic stenosis Compression fracture of L1 lumbar vertebra Recurrent deep vein thrombosis (DVT) Peripheral vascular disease History of gastric cancer BPH (benign prostatic hyperplasia) COPD (chronic obstructive pulmonary disease) Joint pain Surgical History History of colonoscopy Amputation of toe of left foot History of gastrectomy Family History Father Diabetes Cancer Mother Diabetes Brother Lung cancer Social History Household Members: None Household Members Other:: lives alone son checks by daily Housing: Apartment Are you a primary team primary care physician to a significant other at home: No Do you presently have visiting nurse or other home services: No Alcohol intake: former Year quit: 1970 Patient Tobacco Use Status: Never used Tobacco Tobacco use type: Cigarette e-Cigarette/Vaping Use: Never Used Second Hand Smoke Exposure: No service: No Current occupational status: retired Cognitive needs: Yes (walker/power chair) Hearing needs: No Vision needs: Yes (reading) Questionnaire PHQ-9 Over the last 2 weeks, how often have you been bothered by any of the following problems? 1. Little interest or pleasure in doing things: not at all 2. Feeling down, depressed, or hopeless: not at all 3. Trouble falling or staying asleep, or sleeping too much: not at all 4. Feeling tired or having little energy: not at all 5. Poor appetite or overeating: not at all 6. Feeling bad about yourself - or that you are a failure or have let yourself or your family down: not at all 7. Trouble concentrating on things, such as reading the newspaper or watching television: not at all 8. Moving or speaking so slowly that other people could have noticed. Or the opposite - being so fidgety or restless that you have been moving around a lot more than usual: not at all 9. Thoughts that you would be better off or of hurting yourself in some way: not at all Total score: 0 Depression Screening Interpretation: Negative Depression Screening Done: Yes Source: Developed by Drs. Irwin Adrian, Teresa Pickard, Billy Linda and colleagues, with an educational janina from [employer]. Thrive Questionnaire Date Thrive assessed: 05/02/24 I am a: Patient What is your living situation today?: I have a steady place to live Within the past 12 months, did the food you bought not last and you didn't have the money to get more?: Never true Within the past 12 months, did you worry whether your food would run out before you got money to buy more?: Never true Do you have trouble paying for medicines?: No Do you have trouble getting transportation to medical appointments?: No Do you have trouble paying your heating and electricity bill?: No Do you have trouble taking care of your child, family member or friend?: No Do you have trouble with day-to-day activities such as bathing, preparing meals, shopping, managing finances, etc.?: No Are you currently unemployed and looking for a job?: No Are you interested in more education?: No Please select the resources that you would like help with: None Currently or been in a relationship where the following occur: No concerns reported THRIVE Score: 0 AUDIT C Alcohol Use Questionnaire (AUDIT-C) 1. How often do you have a drink containing alcohol?: Never 3. How often do you have six or more drinks on one occasion?: Never Total Score: 0 SHANNON-7 AMB Questionnaire SHANNON-7 Date SHANNON - 7 assessed: 05/02/24 Feeling nervous, anxious, or on edge: 0 = Not at all Not being able to stop or control worryin = Not at all Worrying too much about different things: 0 = Not at all Trouble relaxin = Not at all Being so restless that it is hard to sit still: 0 = Not at all Becoming easily annoyed or irritable: 0 = Not at all Feeling afraid as if something awful might happen: 0 = Not at all Total SHANNON-7 score (0-4 normal; 5-9 mild; 10-14 moderate; 15-21 severe): 0 Source: Developed by Drs. Irwin Adrian, Teresa Pickard, Billy Linda and colleagues, with an educational janina from [employer]. Physical exam (Primary Care) Vital Signs: Last Vital Signs Temp 97.3 F 10/26/24 11:22 Pulse 73 10/26/24 11:22 Resp 18 10/26/24 11:22 BP 122/74 10/26/24 11:22 Pulse Ox 96 10/26/24 11:22 Oxygen Delivery Method Room Air 10/26/24 11:22 BMI result Body Mass Index 23.5 Tobacco/Smoking Status: Tobacco use Status Tobacco use date assessed 10/26/24 10/26/24 11:27 Patient Tobacco Use Status Never used Tobacco 10/26/24 11:27 Tobacco use type Cigarette 10/26/24 11:27 e-Cigarette/Vaping Use Never Used 10/26/24 11:27 PHQ-9: PHQ-9 Score PHQ-9: Total score 0 10/26/24 11:40 Depression Screening Interpretation: Negative Thrive Assessment: Date of Thrive Assessment Date Thrive assessed 05/02/24 10/26/24 11:27 Currently or been in a relationship where the following occur: No concerns reported Const General: alert; No acute distress Eyes Conjunctivae: conjunctivae normal Resp Auscultation: clear to auscultation bilaterally Cardio Rate: regular rate Rhythm: regular rhythm GI Inspection: Yes normal to inspection Extrem General: Yes normal to inspection and No edema Results AMB Hemoglobin A1c AMB Hemoglobin A1c 6.5 % Last Edit by Charline Evangelista CMA on 10/26/24 13:48 AMB Hemoglobin A1c AMB Hemoglobin A1c 6.5 % Last Edit by Charline Evangelista CMA on 10/26/24 13:49 Results Reviewed Results Reviewed: Laboratory Last Values Hgb A1c (Clinic) 6.5 % (4.0-6.0) H 10/26/24 11:27 Hgb A1c (Clinic) 6.5 % (4.0-6.0) H 10/26/24 11:27 Coding Level of Care Code Est Pt Level 4 (75619) Complex EM visit Add On G2211 Diagnoses Type 2 diabetes mellitus with hyperglycemia, without long-term current use of insulin E11.65 Diabetes mellitus mcc insulin use: without computer terminal operator use Recurrent deep vein thrombosis (DVT) I82.409 Hyperlipidemia LDL goal <70 E78.5 Essential hypertension I10 Moderate aortic stenosis I35.0 Chronic kidney disease (CKD) stage G3b/A1, moderately decreased glomerular filtration rate (GFR) between 30-44 mL/min/1.73 square meter and albuminuria creatinine ratio less than 30 mg/g N18.32 Postlaminectomy syndrome M96.1 Pulmonary emphysema, unspecified emphysema type J43.9 COPD type: emphysema Emphysema type: unspecified Assessment & Plan Assessment & Plan (1) Type 2 diabetes mellitus with hyperglycemia: Code(s): E11.65 - Type 2 diabetes mellitus with hyperglycemia Category: Medical Qualifiers: Diabetes mellitus mcc insulin use: without mcc use Qualified Code(s): E11.65 - Type 2 diabetes mellitus with hyperglycemia Plan: Decrease the amount of carbohydrate intake, pasta, bread, rice and potatoes are all sugar and that is aside from all the sweet stuff, remember that fruits are good but they are Sweet also. Hemoglobin A1c goal of less than 7.0 patient is on metformin 500 mg once a day (2) Recurrent deep vein thrombosis (DVT): Comment: Left lower extremity bypass graft Code(s): I82.409 - Acute embolism and thrombosis of unspecified deep veins of unspecified lower extremity Category: Medical Plan: Continue with anticoagulation with Coumadin (3) Hyperlipidemia LDL goal <70: Code(s): E78.5 - Hyperlipidemia, unspecified Category: Medical Plan: Avoid fried foods, chicken skin, eggs, butter margarine, pastries and meat. Be it pork or beef they have a lot of cholesterol LDL goal of less than 100 and triglyceride of less than 150 on atorvastatin 40 mg once a day (4) Essential hypertension: Code(s): I10 - Essential (primary) hypertension Category: Medical Plan: Continue with blood pressure medication. Decrease salt intake and exercise takes amlodipine 10 mg once a day metoprolol 25 mg once a day (5) Moderate aortic stenosis: Comment: August 2019 1.5 cm sq [place] and cardiovascular As August 2021 1.1 cm2, March 2022 1.3 cm2 May 2023 1.18 cm squared May 2024 1.2 cm Code(s): I35.0 - Nonrheumatic aortic (valve) stenosis Category: Medical Plan: Continuing to monitor. May 2024 last echocardiogram. (6) Chronic kidney disease (CKD) stage G3b/A1, moderately decreased glomerular filtration rate (GFR) between 30-44 mL/min/1.73 square meter and albuminuria creatinine ratio less than 30 mg/g: Code(s): N18.32 - Chronic kidney disease, stage 3b Category: Medical Plan: Stable keep well hydrated avoid NSAIDs (7) Postlaminectomy syndrome: Code(s): M96.1 - Postlaminectomy syndrome, not elsewhere classified Category: Medical Plan: Keep active (8) COPD (chronic obstructive pulmonary disease): Comment: This patient is well known to have chronic obstructive pulmonary disease, moderately severe. He is staying stable with the current medical regimen , except for intermittent increase in cough and mucus production. Code(s): J44.9 - Chronic obstructive pulmonary disease, unspecified Category: Medical Qualifiers: COPD type: emphysema Emphysema type: unspecified Qualified Code(s): J43.9 - Emphysema, unspecified Plan: Patient follows up with Pulmonary continuing with albuterol inhaler and Symbicort Plan History of Present Illness The patient is an 84-year-old male presenting for a follow-up visit. He has a history of diabetes mellitus, managed with metformin 500 mg once daily, and his hemoglobin A1c was last recorded at 6.5%. The goal for his hemoglobin A1c is to maintain it below 7.0%. The patient has benign prostatic hyperplasia (BPH) and chronic kidney disease, with stable renal function noted at 1.12. He also has moderate aortic stenosis, with the last echocardiogram conducted in May 2024. His chronic obstructive pulmonary disease (COPD) is managed with albuterol and Symbicort, and he is scheduled for a pulmonary follow-up in September 2024. The patient has a history of recurrent deep vein thrombosis (DVT) and is on anticoagulation therapy with Coumadin. He has hypertension and hypercholesterolemia, with an LDL goal of less than 100 mg/dL and triglycerides less than 150 mg/dL. His cholesterol is managed with atorvastatin 40 mg once daily, and his blood pressure is controlled with amlodipine 10 mg and metoprolol 25 mg daily. The patient has a history of stomach cancer with gastrectomy in 2001 and postlaminectomy syndrome. Recent blood work in July 2024 indicated anemia of chronic disease and proteinuria. Health Maintenance Social History Review of Systems - Respiratory: Reports cough, duration unspecified. Physical Exam Results - Labs: Hemoglobin A1c 6.5% (July 2024), LDL 46 mg/dL (July 2024), stable renal function at 1.12 (May 2024). - Tests and Diagnostics: Echocardiogram (May 2024), pulmonary follow-up scheduled for September 2024. Plan The management plan for diabetes mellitus includes maintaining the hemoglobin A1c below 7.0% with continued use of metformin 500 mg daily. For hypertension, the patient will continue with amlodipine 10 mg and metoprolol 25 mg daily to maintain blood pressure control. Cholesterol management involves atorvastatin 40 mg daily, with goals of LDL less than 100 mg/dL and triglycerides less than 150 mg/dL. The patient will continue anticoagulation therapy with Coumadin for recurrent DVT. For COPD, the patient will continue using albuterol and Symbicort, with a follow-up scheduled in September 2024. A chest x-ray has been ordered to evaluate the persistent cough. The patient is advised to stay well-hydrated and avoid NSAIDs to manage chronic kidney disease. A referral to pain management has been made to address postlaminectomy syndrome and associated pain issues. Patient was informed and verbally consented to the use of an ambient scribe for clinic note documentation during this visit. Discussion Notes During the visit, we discussed the management of diabetes mellitus, emphasizing the importance of maintaining the hemoglobin A1c below 7.0%. We also reviewed the patient's hypertension and cholesterol management plans, ensuring that the patient understands the goals and medications involved. The patient was informed about the continuation of anticoagulation therapy with Coumadin for recurrent DVT and the use of albuterol and Symbicort for COPD management. A chest x-ray was ordered to investigate the persistent cough, and a referral to pain management was made to address postlaminectomy syndrome. Patient Instructions - Continue taking metformin 500 mg daily to manage diabetes. - Take amlodipine 10 mg and metoprolol 25 mg daily for blood pressure control. - Continue atorvastatin 40 mg daily for cholesterol management. - Use albuterol and Symbicort as prescribed for COPD. - Stay well-hydrated and avoid NSAIDs to protect kidney function. - Follow up with pain management as referred. - Schedule and complete the chest x-ray as ordered. Orders: Orders AMB Hemoglobin A1c Today Kee Barrientos MD Z13.9 - Encounter for screening, unspecified XR chest 2V Today Kee Barrientos MD J43.9 - Emphysema, unspecified Referrals Pain Management Referral Kee Barrientos MD M96.1 - Postlaminectomy syndrome, not elsewhere classified Medications: On Hold enoxaparin (Lovenox) Hold Comment: Doctor's Order 70 mg See Protocol subcut Q12H 5 days 8 mL 1RF Francheska Chung RN I82.409 - Acute embolism and thrombosis of unspecified deep veins of unspecified lower extremity
[2024-10-26 11:22] VITALS: BP 122/74; PULSE 73; RESP 18; TEMP 36.3; O2SAT 96; BMI 23.5
== END 2024-10-26 12:39 | disposition home or self-care (01) ==
LOC: HO.HMCH 10:57
PROVIDERS: PCP Internal Medicine; Visit Provider Internal Medicine
DX: I12.9 Hypertensive chronic kidney disease with stage 1 through stage 4 chronic kidney disease, or unspecified chronic kidney disease (principal); E11.65 Type 2 diabetes mellitus with hyperglycemia; I82.409 Acute embolism and thrombosis of unspecified deep veins of unspecified lower extremity; J43.9 Emphysema, unspecified; N18.32 Chronic kidney disease, stage 3b; E78.5 Hyperlipidemia, unspecified; I35.0 Nonrheumatic aortic (valve) stenosis; M96.1 Postlaminectomy syndrome, not elsewhere classified

== ENCOUNTER → 2024-10-26 12:07 | Outpatient (BNV) | payer MEDICARE, MEDICAID, SELFPAY | PROVIDERS: PCP Internal Medicine; Visit Provider Radiology Diagnostic Radiology | DX: J43.9 Emphysema, unspecified (principal) | CPT/HCPCS: 71046 ==

== ENCOUNTER 2024-10-26 13:16 | Outpatient (AMB) | payer MEDICARE, MEDICAID, SELFPAY ==
--- NOTE | 2024-10-26 13:30 | MHC.OFFVISCO ---
Intake Intake Visit Reasons: Anticoagulation Allergies doxycycline Allergy (Intermediate, Verified 10/26/24 13:24) Nausea and Vomiting Medication List - Last Reconciled 10/26/24 by Francheska Chung RN acetaminophen ER (Tylenol Arthritis Pain) 650 mg PO Q8H 30 days amlodipine 10 mg PO DAILY ascorbic acid (vitamin C) 1 g PO DAILY atorvastatin 40 mg PO DAILY blood pressure monitor (Blood Pressure Kit) As directed blood sugar diagnostic ([employer] Verio test strips) one time daily blood-glucose meter ([employer] Verio Meter) To check blood glucose once daily budesonide-formoterol 160-4.5 mcg/actuation (Symbicort) 2 puffs PO BID cholecalciferol (vitamin D3) 25 mcg PO DAILY cilostazol 100 mg PO BID cyanocobalamin (vitamin B-12) (Vitamin B-12) 250 mcg PO DAILY enoxaparin (Lovenox) 70 mg See Protocol subcut Q12H 5 days ferrous sulfate (Feosol) 325 mg PO DAILY fluticasone propionate 50 mcg/actuation 2 sprays intranasal DAILY gabapentin 300 mg PO TID 90 days [garlic clove 1 dose PO NEEDED] ipratropium-albuterol 0.5 mg-3 mg(2.5 mg base)/3 mL 3 mL inhalation Q6H lancets ([employer] Delica Plus Lancet) To test bg daily lancets As directed metformin 500 mg PO DAILY metoprolol succinate ER 25 mg PO DAILY naloxone 4 mg/actuation (Narcan) 4 mg intranasal Q2M 1 day Ventolin HFA 90 mcg/actuation (albuterol sulfate) 2 puffs inhalation Q4-6H PRN NS walker (Ultra-Light Rollator misc) As directed, ambulate at all times with walker warfarin 5 mg See Protocol PO DAILY warfarin 2.5 mg See Protocol PO DAILY 90 days Nursing Note INR 3.1-?? out of therapeutic range of 2-3 Medications and supplements reviewed Patient status: pt cont with cough. saw pcp today and had labs and cxr Medications or supplements: no changes Diet: appetite fair, eating srinivas and watermelon which can raise Denies any signs and symptoms of bleeding or clotting or unusual bruising Bleeding, bruising, clotting discussed Nutritional guidance given: will eat a green today Dose: 5mg x 3, 2.5mg x 4 F/U INR Date : pt req 2 weeks? Patient verbalizing understanding of instructions given. pt son present for acs appt. vague on warfarin dosing. pt son states they follow dosing management paper- reviewed x 3 with pt and son. they will call acs with any new medications. Anti-Coag Initial Assessment Social Hx Patient Tobacco Use Status: Never used Tobacco Tobacco use type: Cigarette alcohol intake: former Alcohol intake frequency: does not drink Coding Level of Care Code Est Patient Level 2 Diagnoses Current use of anticoagulant therapy Z79.01 Assessment & Plan Assessment & Plan (1) Current use of anticoagulant therapy: Code(s): Z79.01 - custodial (current) 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 Medications: On Hold enoxaparin (Lovenox) Hold Comment: Doctor's Order 70 mg See Protocol subcut Q12H 5 days 8 mL 1RF I82.409 - Acute embolism and thrombosis of unspecified deep veins of unspecified lower extremity
[2024-10-26 13:31] LABS: Prothrombin Time Whole Bld POC 37.0 sec (11.1-13.5); ~PT, ~INR - Anti Coag Clinic 3.1 (0.9-1.1)
== END 2024-10-26 13:47 | disposition home or self-care (01) ==
LOC: HO.ACS 13:16
PROVIDERS: PCP Internal Medicine; Visit Provider Internal Medicine Medical Oncology
DX: Z79.01 Long term (current) use of anticoagulants (principal)

== ENCOUNTER 2024-11-04 13:02 | Outpatient (AMB) | payer MEDICARE, MEDICAID, SELFPAY ==
[2024-11-04 13:09] LABS: Prothrombin Time Whole Bld POC 24.5 sec (11.1-13.5); ~PT, ~INR - Anti Coag Clinic 2.0 (0.9-1.1)
--- NOTE | 2024-11-04 13:22 | MHC.OFFVISCO ---
Intake Intake Visit Reasons: Anticoagulation Allergies doxycycline Allergy (Intermediate, Verified 11/04/24 13:04) Nausea and Vomiting Medication List - Last Reconciled 11/04/24 by Rakel Ngo RN acetaminophen ER (Tylenol Arthritis Pain) 650 mg PO Q8H 30 days amlodipine 10 mg PO DAILY ascorbic acid (vitamin C) 1 g PO DAILY atorvastatin 40 mg PO DAILY blood pressure monitor (Blood Pressure Kit) As directed blood sugar diagnostic ([employer] Verio test strips) one time daily blood-glucose meter ([employer] Verio Meter) To check blood glucose once daily budesonide-formoterol 160-4.5 mcg/actuation (Symbicort) 2 puffs PO BID cholecalciferol (vitamin D3) 25 mcg PO DAILY cilostazol 100 mg PO BID cyanocobalamin (vitamin B-12) (Vitamin B-12) 250 mcg PO DAILY enoxaparin (Lovenox) 70 mg See Protocol subcut Q12H 5 days Held on 10/26/24. Instructions: Doctor's Order ferrous sulfate (Feosol) 325 mg PO DAILY fluticasone propionate 50 mcg/actuation 2 sprays intranasal DAILY gabapentin 300 mg PO TID 90 days [garlic clove 1 dose PO NEEDED] ipratropium-albuterol 0.5 mg-3 mg(2.5 mg base)/3 mL 3 mL inhalation Q6H lancets ([employer] Delica Plus Lancet) To test bg daily lancets As directed metformin 500 mg PO DAILY metoprolol succinate ER 25 mg PO DAILY naloxone 4 mg/actuation (Narcan) 4 mg intranasal Q2M 1 day Ventolin HFA 90 mcg/actuation (albuterol sulfate) 2 puffs inhalation Q4-6H PRN NS walker (Ultra-Light Rollator misc) As directed, ambulate at all times with walker warfarin 5 mg See Protocol PO DAILY warfarin 2.5 mg See Protocol PO DAILY 90 days Nursing Note INR: 2.0 in therapeutic range Medications and supplements reviewed s/p antbx treatment for cough he had x 1 month Denies any signs and symptoms of bleeding or bruising or clotting. Bleeding, bruising, clotting discussed Nutritional guidance given - no greens today then resume usual diet Dose: resume usual dose 5mg mwf/ 2.5mg x 4 days F/U INR: Patient verbalizes understanding of instructions given Anti-Coag Initial Assessment Social Hx Patient Tobacco Use Status: Never used Tobacco Tobacco use type: Cigarette alcohol intake: former Alcohol intake frequency: does not drink Coding Level of Care Code Est Patient Level 1 Diagnoses Current use of anticoagulant therapy Z79.01 Results AMB INR Fingerstick AMB INR Fingerstick 2.0 Last Edit by Rakel Ngo RN on 11/04/24 13:11 MANUAL ENTRY Assessment & Plan Assessment & Plan (1) Current use of anticoagulant therapy: Code(s): Z79.01 - detention (current) 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
== END 2024-11-04 13:24 | disposition home or self-care (01) ==
LOC: HO.ACS 13:02
PROVIDERS: PCP Internal Medicine; Visit Provider Internal Medicine Medical Oncology
DX: Z79.01 Long term (current) use of anticoagulants (principal)

== ENCOUNTER → 2024-11-04 13:02 | Outpatient (BNVA) | payer MEDICARE, MEDICAID, SELFPAY | PROVIDERS: PCP Internal Medicine; Visit Provider Internal Medicine Medical Oncology | DX: I82.503 Chronic embolism and thrombosis of unspecified deep veins of lower extremity, bilateral (principal); Z79.01 Long term (current) use of anticoagulants; Z51.81 Encounter for therapeutic drug level monitoring | CPT/HCPCS: 85610; 99211 ==

== ENCOUNTER 2024-11-09 13:40 | Outpatient (AMB) | payer MEDICARE, MEDICAID, SELFPAY ==
[2024-11-09 13:47] VITALS: BP 104/60; PULSE 80; O2SAT 97; BMI 23.6
--- NOTE | 2024-11-09 13:47 | A.OFFVIS_ITS ---
Vital Signs 11/09/24 13:47 Height 6 ft Weight 174 lb 2.643 oz BMI 23.6 BP 104/60 Blood Pressure Location Lt brachial Position Sitting Pulse 80 Pulse Source Pulse Oximeter Pulse Oximetry (%) 97 Oxygen Delivery Method Room Air Intake Visit Reasons: increased productive cough Intake Note: pt is here for a sick visit due to a cough with phelgm that has been happening for over a month, he was tx by pcp with zpak some relief but symptoms came back after 3 days. He has black spots in phlegm and yellow in color. 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: No Allergies doxycycline Allergy (Intermediate, Verified 11/09/24 14:02) Nausea and Vomiting Medication List - Last Reconciled 11/09/24 by Main Luis MD acetaminophen ER (Tylenol Arthritis Pain) 650 mg PO Q8H 30 days amlodipine 10 mg PO DAILY ascorbic acid (vitamin C) 1 g PO DAILY atorvastatin 40 mg PO DAILY blood pressure monitor (Blood Pressure Kit) As directed blood sugar diagnostic ([employer] Verio test strips) one time daily blood-glucose meter ([employer] Verio Meter) To check blood glucose once daily budesonide-formoterol 160-4.5 mcg/actuation (Symbicort) 2 puffs PO BID cholecalciferol (vitamin D3) 25 mcg PO DAILY cilostazol 100 mg PO BID cyanocobalamin (vitamin B-12) (Vitamin B-12) 250 mcg PO DAILY enoxaparin (Lovenox) 70 mg See Protocol subcut Q12H 5 days Held on 10/26/24. Instructions: Doctor's Order ferrous sulfate (Feosol) 325 mg PO DAILY fluticasone propionate 50 mcg/actuation 2 sprays intranasal DAILY gabapentin 300 mg PO TID 90 days [garlic clove 1 dose PO NEEDED] ipratropium-albuterol 0.5 mg-3 mg(2.5 mg base)/3 mL 3 mL inhalation Q6H lancets ([employer] Delica Plus Lancet) To test bg daily lancets As directed metformin 500 mg PO DAILY metoprolol succinate ER 25 mg PO DAILY naloxone 4 mg/actuation (Narcan) 4 mg intranasal Q2M 1 day Ventolin HFA 90 mcg/actuation (albuterol sulfate) 2 puffs inhalation Q4-6H PRN NS walker (Ultra-Light Rollator misc) As directed, ambulate at all times with walker warfarin 5 mg See Protocol PO DAILY warfarin 2.5 mg See Protocol PO DAILY 90 days Do you need a note to return to daycare/school/sports/work: No HPI HPI increased productive cough: Details: THIS 84 YEARS OLD VERY PLEASANT, MAORI-SPEAKING GENTLEMAN, IS HERE FOR HIS 6 MONTHS FOLLOW-UP FOR COPD. USUALLY HIS COPD IS UNDER GOOD CONTROL, AND HE CONTINUES TO USE SYMBICORT 2 PUFFS B.I.D.. IN THE PAST MONTHS OR SO HE HAS HAD INCREASED COUGH AT NIGHT, EXPECTORATES YELLOWISH PHLEGM WITH SOME DIFFICULTY. AND DOES NOT GET GOOD SLEEP AT NIGHT. HE HAS BEEN TREATED WITH A COURSE OF Z-PINO, .WITH ONLY PARTIAL IMPROVEMENT ACCORDING TO HIS SON HE WAS THEN PRESCRIBED DOXYCYCLINE WHICH HE TOOK FOR A FEW DAYS AND GOT STOMACH UPSET SO HAD TO STOP IT. HE DOES NOT HAVE ANY FEVER OR CHILLS. AND NO INCREASE IN SHORTNESS OF BREATH. 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, without long-term current use of insulin Effusion of right knee joint Contusion of right knee Hemarthrosis involving knee joint Left shoulder pain Appetite impaired Hearing difficulty Weight loss Cough Non-rheumatic aortic stenosis Chronic pain syndrome Postlaminectomy syndrome Diabetic polyneuropathy Gastric carcinoma Peripheral vascular disease Pneumonia Hyperlipidemia LDL goal <70 COPD (chronic obstructive pulmonary disease) Type 2 diabetes mellitus with hyperglycemia Vitamin B12 deficiency Bronchiectasis Moderate aortic stenosis Compression fracture of L1 lumbar vertebra Recurrent deep vein thrombosis (DVT) Peripheral vascular disease History of gastric cancer BPH (benign prostatic hyperplasia) COPD (chronic obstructive pulmonary disease) Joint pain Surgical History History of colonoscopy Amputation of toe of left foot History of gastrectomy Family History Father Diabetes Cancer Mother Diabetes Brother Lung cancer Social History Household Members: None Household Members Other:: lives alone son checks by daily Housing: Apartment Are you a primary adult care provider to a significant other at home: No Do you presently have visiting nurse or other home services: No Alcohol intake: former Year quit: 1970 Patient Tobacco Use Status: Never used Tobacco Tobacco use type: Cigarette e-Cigarette/Vaping Use: Never Used Second Hand Smoke Exposure: No service: No Current occupational status: retired Cognitive needs: Yes (walker/power chair) Hearing needs: No Vision needs: Yes (reading) Review of Systems Const All systems reviewed & are unremarkable except as noted in HPI and below Denies poor appetite and Denies weakness Eyes Denies no additional complaints ENT Reports Normal hearing present, Denies dizziness, Reports nasal congestion (MILD ), Denies tinnitus and Denies sore throat Card Denies chest pain, Denies syncope, Denies rapid heart rate and Denies dyspnea Resp Denies cough and Denies dyspnea GI Denies change in stool character, Reports constipation, Denies diarrhea, Denies nausea and Denies vomiting Denies dysuria and Denies urinary frequency Musc Reports back pain and Reports stiffness Skin/Breast Reports system reviewed and no additional complaints, except as documented Neuro Reports Normal hearing present, Denies confusion, Denies dizziness, Denies syncope and Denies weakness Psych Denies confusion Endo Reports other (Being treated for diabetes mellitus) Physical Exam Vital Signs: Last Vital Signs Pulse 80 11/09/24 13:47 BP 104/60 11/09/24 13:47 Pulse Ox 97 11/09/24 13:47 Oxygen Delivery Method Room Air 11/09/24 13:47 BMI result Body Mass Index 23.6 Const General: No confusion Orientation/consciousness: No confusion HEENT Head: Yes normal to inspection General nose exam: No nasal polyps present and No nasal discharge present Face and sinus: Yes sinuses nontender Mouth: oropharynx normal (THERE IS MILD TO MODERATE DEGREE OF MUCUS IN THE NASOPHARYNX) Throat: Yes posterior oropharynx normal Eyes General: appearance normal, both eyes and all related structures Neck Neck: Yes normal visual inspection, Yes no lymphadenopathy, Yes trachea midline and Yes no JVD Thyroid: Thyroid normal Chest Chest palpation & inspection: normal inspection of the chest, normal palpation of entire chest wall and no tenderness Resp Other: Percussion note resonant on both sides. Breath sounds are slightly diminished and prolonged expiratory phase on both brendan es. No wheezes rhonchi or crepitations are heard today . Cardio Palpation: normal PMI Rate: regular rate Rhythm: regular rhythm Heart sounds: no gallops and no murmurs GI Palpation (GI): Soft to palpation, nontender, No hepatosplenomegaly present and no masses Auscultation: normal bowel sounds Back/Spine/Pelvis Thoracic/Lumbar Spine: thoracic and lumbar spine normal to inspection, thoraco- lumbar ROM limited and thoraco-lumbar spasm Skin General skin exam: no rashes or lesions noted Neuro General: No confusion Cranial nerves: Yes Normal hearing present Extrem General: Yes normal to inspection, Yes no clubbing, cyanosis or edema and Yes no calf tenderness Psych Mental Status: mental status grossly normal Speech and movement: Normal speech and movement present Assessment & Plan Assessment & Plan (1) COPD (chronic obstructive pulmonary disease): Comment: This patient is well known to have chronic obstructive pulmonary disease, moderately severe. He is staying stable with the current medical regimen , except for intermittent increase in cough and mucus production. Code(s): J44.9 - Chronic obstructive pulmonary disease, unspecified Category: Medical Qualifiers: COPD type: emphysema Emphysema type: unspecified Qualified Code(s): J43.9 - Emphysema, unspecified Plan: CONTINUE TO USE SYMBICORT 160-4.52 PUFFS B.I.D. IPRATROPIUM-ALBUTEROL SOLUTION IN THE NEBULIZER Q 6 HOURS P.R.N.. MAY USE IT AT LEAST ONCE BEFORE GOING TO SLEEP. VENTOLIN HFA 2 PUFFS Q 6 HOURS P.R.N. WHEN OUTDOORS (2) Rhinosinusitis: Comment: AT PRESENT HIS MAIN ISSUE IS INCREASED COUGH ESPECIALLY AT NIGHT AND HE FEELS THAT HE HAS POSTNASAL DISCHARGE. THERE IS EVIDENCE OF MODERATE AMOUNT OF MUCUS IN THE NASOPHARYNX, AND IT SEEMS THAT HE HAS A LOW-GRADE RHINOSINUSITIS. HAS BEEN TREATED WITH A COURSE OF Z-PINO AND THEN DOXYCYCLINE WHICH HE DID NOT TOLERATE. Code(s): J32.9 - Chronic sinusitis, unspecified Category: Medical Plan: I EXPLAINED TO HIM THAT HIS COUGH ESPECIALLY AT NIGHT MAY BE DUE TO LOW-GRADE RHINOSINUSITIS, I WANTED TO PRESCRIBED DOXYCYCLINE BUT THE SON SAY IS HE ALREADY TRIED THAT AND GOT UPSET STOMACH Plan EXPLAINED TO HIM THE MAIN REASON FOR HIS COUGH. HE SHOULD USE STEAM INHALATION BE AT IN THE EVENING HE CAN ALSO USE IPRATROPIUM-ALBUTEROL SOLUTION IN THE NEBULIZER AT LEASE ONCE IN THE EVENING. I WILL RECHECK HIM IN 2 MONTHS FOR A SHORT TERM FOLLOW-UP. Coding Level of Care Code Est Pt Level 3 (99436) Diagnoses Pulmonary emphysema, unspecified emphysema type J43.9 COPD type: emphysema Emphysema type: unspecified Rhinosinusitis J32.9
== END 2024-11-09 14:12 | disposition home or self-care (01) ==
LOC: HO.HPS 13:41
PROVIDERS: PCP Internal Medicine; Visit Provider Internal Medicine
DX: J43.9 Emphysema, unspecified (principal); J32.9 Chronic sinusitis, unspecified
CPT/HCPCS: 99213

== ENCOUNTER → 2024-11-09 13:40 | Outpatient (BNVA) | payer MEDICARE, MEDICAID, SELFPAY | PROVIDERS: PCP Internal Medicine; Visit Provider Internal Medicine | DX: J43.9 Emphysema, unspecified (principal); J32.9 Chronic sinusitis, unspecified | CPT/HCPCS: 99212 ==

== ENCOUNTER 2024-11-18 11:12 | Outpatient (AMB) | payer MEDICARE, MEDICAID, SELFPAY ==
[2024-11-18 11:14] VITALS: BP 124/70; PULSE 67; O2SAT 98; BMI 26.9
--- NOTE | 2024-11-18 11:14 | A.OFFPC_ITS ---
Vital Signs 11/18/24 11:14 Height 5 ft 7 in Weight 172 lb BMI 26.9 BP 124/70 Blood Pressure Location Lt brachial Position Sitting Pulse 67 Pulse Source Pulse Oximeter Pulse Oximetry (%) 98 Oxygen Delivery Method Room Air Intake Visit Reasons: DM , HTN, Allergies doxycycline Allergy (Intermediate, Verified 11/18/24 11:15) Nausea and Vomiting Medication List - Last Reconciled 11/18/24 by Kee Barrientos MD acetaminophen ER (Tylenol Arthritis Pain) 650 mg PO Q8H 30 days amlodipine 10 mg PO DAILY ascorbic acid (vitamin C) 1 g PO DAILY atorvastatin 40 mg PO DAILY blood pressure monitor (Blood Pressure Kit) As directed blood sugar diagnostic ([employer] Verio test strips) one time daily blood-glucose meter ([employer] Verio Meter) To check blood glucose once daily budesonide-formoterol 160-4.5 mcg/actuation (Symbicort) 2 puffs PO BID cholecalciferol (vitamin D3) 25 mcg PO DAILY cilostazol 100 mg PO BID cyanocobalamin (vitamin B-12) (Vitamin B-12) 250 mcg PO DAILY enoxaparin (Lovenox) 70 mg See Protocol subcut Q12H 5 days Held on 10/26/24. Instructions: Doctor's Order ferrous sulfate (Feosol) 325 mg PO DAILY fluticasone propionate 50 mcg/actuation 2 sprays intranasal DAILY gabapentin 300 mg PO TID 90 days [garlic clove 1 dose PO NEEDED] ipratropium-albuterol 0.5 mg-3 mg(2.5 mg base)/3 mL 3 mL inhalation Q6H lancets ([employer] Delica Plus Lancet) To test bg daily lancets As directed lutein PO metformin 500 mg PO DAILY metoprolol succinate ER 25 mg PO DAILY naloxone 4 mg/actuation (Narcan) 4 mg intranasal Q2M 1 day Ventolin HFA 90 mcg/actuation (albuterol sulfate) 2 puffs inhalation Q4-6H PRN NS walker (Ultra-Light Rollator misc) As directed, ambulate at all times with walker warfarin 5 mg See Protocol PO DAILY warfarin 2.5 mg See Protocol PO DAILY 90 days Tobacco use date assessed: 10/26/24 Fall risk assessment: No Falls in past year Last assessed Fall Risk: 11/18/24 Dental Screening Dental Screen Date: 10/26/24 [facility] Medical History (Updated 11/09/24 @ 14:16 by Main Luis MD) Rhinosinusitis Lumbar spondylosis 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, without long-term current use of insulin Effusion of right knee joint Contusion of right knee Hemarthrosis involving knee joint Left shoulder pain Appetite impaired Hearing difficulty Weight loss Cough Non-rheumatic aortic stenosis Chronic pain syndrome Postlaminectomy syndrome Diabetic polyneuropathy Gastric carcinoma Peripheral vascular disease Pneumonia Hyperlipidemia LDL goal <70 COPD (chronic obstructive pulmonary disease) Type 2 diabetes mellitus with hyperglycemia Vitamin B12 deficiency Bronchiectasis Moderate aortic stenosis Compression fracture of L1 lumbar vertebra Recurrent deep vein thrombosis (DVT) Peripheral vascular disease History of gastric cancer BPH (benign prostatic hyperplasia) COPD (chronic obstructive pulmonary disease) Joint pain Surgical History History of colonoscopy Amputation of toe of left foot History of gastrectomy Family History Father Diabetes Cancer Mother Diabetes Brother Lung cancer Social History Household Members: None Household Members Other:: lives alone son checks by daily Housing: Apartment Are you a primary client care consultant to a significant other at home: No Do you presently have visiting nurse or other home services: No Alcohol intake: former Year quit: 1970 Patient Tobacco Use Status: Never used Tobacco Tobacco use type: Cigarette e-Cigarette/Vaping Use: Never Used Second Hand Smoke Exposure: No service: No Current occupational status: retired Cognitive needs: Yes (walker/power chair) Hearing needs: No Vision needs: Yes (reading) Questionnaire Thrive Questionnaire Date Thrive assessed: 05/02/24 SHANNON-7 AMB Questionnaire SHANNON-7 Date SHANNON - 7 assessed: 05/02/24 Source: Developed by Drs. Irwin Adrian, Teresa Pickard, Billy Linda and colleagues, with an educational janina from [employer]. Physical exam (Primary Care) Vital Signs: Last Vital Signs Pulse 67 11/18/24 11:14 BP 124/70 11/18/24 11:14 Pulse Ox 98 11/18/24 11:14 Oxygen Delivery Method Room Air 11/18/24 11:14 BMI result Body Mass Index 26.9 Tobacco/Smoking Status: Tobacco use Status Tobacco use date assessed 10/26/24 11/18/24 11:15 Patient Tobacco Use Status Never used Tobacco 11/18/24 11:15 Tobacco use type Cigarette 11/18/24 11:15 e-Cigarette/Vaping Use Never Used 11/18/24 11:15 Thrive Assessment: Date of Thrive Assessment Date Thrive assessed 05/02/24 11/18/24 11:15 Const General: alert; No acute distress Eyes Conjunctivae: conjunctivae normal Resp Auscultation: clear to auscultation bilaterally Cardio Rate: regular rate Rhythm: regular rhythm GI Inspection: Yes normal to inspection Extrem General: Yes normal to inspection and No edema Coding Level of Care Code Est Pt Level 4 (76312) Complex EM visit Add On G2211 Diagnoses Type 2 diabetes mellitus with hyperglycemia, without long-term current use of insulin E11.65 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: without chcf use Recurrent deep vein thrombosis (DVT) I82.409 Hyperlipidemia LDL goal <70 E78.5 Ascending aorta dilatation I77.810 Moderate aortic stenosis I35.0 Essential hypertension I10 Benign prostatic hyperplasia with urinary frequency N40.1; R35.0 Lower urinary tract symptom detail: urinary frequency Lower urinary tract symptom presence: symptoms present Pulmonary emphysema, unspecified emphysema type J43.9 COPD type: emphysema Emphysema type: unspecified Postlaminectomy syndrome M96.1 Assessment & Plan Assessment & Plan (1) Type 2 diabetes mellitus with hyperglycemia: Code(s): E11.65 - Type 2 diabetes mellitus with hyperglycemia Category: Medical Qualifiers: Diabetes mellitus chcf insulin use: without terminal computer operator use Qualified Code(s): E11.65 - Type 2 diabetes mellitus with hyperglycemia Plan: Decrease the amount of carbohydrate intake, pasta, bread, rice and potatoes are all sugar and that is aside from all the sweet stuff, remember that fruits are good but they are Sweet also. Hemoglobin A1c goal of less than 7.0 patient is on metformin 500 mg once a day (2) Recurrent deep vein thrombosis (DVT): Comment: Left lower extremity bypass graft Code(s): I82.409 - Acute embolism and thrombosis of unspecified deep veins of unspecified lower extremity Category: Medical Plan: Patient is on blood thinners Coumadin (3) Hyperlipidemia LDL goal <70: Code(s): E78.5 - Hyperlipidemia, unspecified Category: Medical Plan: Avoid fried foods, chicken skin, eggs, butter margarine, pastries and meat. Be it pork or beef they have a lot of cholesterol LDL goal of less than 100 and triglyceride of less than 150 patient is on atorvastatin 40 mg once a day (4) Ascending aorta dilatation: Comment: May 2024 4.2 cm Code(s): I77.810 - Thoracic aortic ectasia Category: Medical Plan: Continuing to monitor May 2024 last echocardiogram (5) Moderate aortic stenosis: Comment: August 2019 1.5 cm sq [place] and cardiovascular As August 2021 1.1 cm2, March 2022 1.3 cm2 May 2023 1.18 cm squared May 2024 1.2 cm Code(s): I35.0 - Nonrheumatic aortic (valve) stenosis Category: Medical Plan: Continue to monitor May 2024 last echocardiogram (6) Essential hypertension: Code(s): I10 - Essential (primary) hypertension Category: Medical Plan: Continue with blood pressure medication. Decrease salt intake and exercise patient takes amlodipine 10 mg once a day metoprolol 25 mg once a day (7) BPH (benign prostatic hyperplasia): Code(s): N40.0 - Benign prostatic hyperplasia without lower urinary tract symptoms Category: Medical Qualifiers: Lower urinary tract symptom detail: urinary frequency Lower urinary tract symptom presence: symptoms present Qualified Code(s): N40.1 - Benign prostatic hyperplasia with lower urinary tract symptoms; R35.0 - Frequency of micturition Plan: Continuing to monitor (8) COPD (chronic obstructive pulmonary disease): Comment: This patient is well known to have chronic obstructive pulmonary disease, moderately severe. He is staying stable with the current medical regimen , except for intermittent increase in cough and mucus production. Code(s): J44.9 - Chronic obstructive pulmonary disease, unspecified Category: Medical Qualifiers: COPD type: emphysema Emphysema type: unspecified Qualified Code(s): J43.9 - Emphysema, unspecified Plan: Patient follows up with Pulmonary and patient is on albuterol/DuoNeb and Symbicort (9) Postlaminectomy syndrome: Code(s): M96.1 - Postlaminectomy syndrome, not elsewhere classified Category: Medical Plan: referral to pain med Plan History of Present Illness The patient is an 84-year-old male presenting for follow-up of multiple chronic conditions including diabetes mellitus, hypertension, and COPD. The patient has a history of benign prostatic hyperplasia, chronic kidney disease, diabetes mellitus, and moderate aortic stenosis. The last echocardiogram in May 2024 showed an aortic valve area of 1.2 cm, indicating moderate stenosis. The patient also has a history of deep vein thrombosis and is currently on blood thinners. He has hypertension and hypercholesterolemia, managed with amlodipine, metoprolol, and atorvastatin. In 2001, the patient was diagnosed with stomach cancer and underwent gastrectomy. He also has postlaminectomy syndrome and experiences chronic pain, managed with gabapentin. The patient has chronic obstructive pulmonary disease, moderate to severe, and is on Symbicort, Duoneb, and Ventolin. He was treated for low-grade rhinosinusitis with Z-Mykel and doxycycline. Recent blood work in July 2024 revealed anemia with hemoglobin at 11.4 g/dL and hematocrit at 36.3%. Renal function remains stable with a creatinine level of 1.12 mg/dL. The patient's hemoglobin A1c was 6.5% in October 2019, and LDL cholesterol was 46 mg/dL in July 2024. Health Maintenance - Flu shot recommended for December - vaccination recommended due to anticipated spike - Tetanus, shingles, and pneumonia vaccinations are up to date Social History - Financial constraints impacting medication affordability Review of Systems - Respiratory: Reports chronic cough, managed with inhalers. Denies acute respiratory distress. - Cardiovascular: Denies chest pain or palpitations. - Musculoskeletal: Reports chronic back and leg pain, managed with gabapentin. Physical Exam Results - Labs: Anemia with hemoglobin at 11.4 g/dL and hematocrit at 36.3% (July 2024) - Labs: Stable renal function with creatinine at 1.12 mg/dL (May 2024) - Labs: Hemoglobin A1c at 6.5% (October 2019) - Labs: LDL cholesterol at 46 mg/dL (July 2024) - Imaging: Echocardiogram showing aortic valve area of 1.2 cm and aortic root dilation at 4.2 cm (May 2024) Plan Patient was informed and verbally consented to the use of an ambient scribe for clinic note documentation during this visit. 1. Diabetes Mellitus The patient's diabetes mellitus is managed with metformin 500 mg once daily, with a target hemoglobin A1c of less than 7.0%. The most recent hemoglobin A1c was 6.5%, indicating good control. 2. Hypertension Hypertension is managed with amlodipine 10 mg and metoprolol 25 mg once daily. Blood pressure monitoring is ongoing to ensure control. 3. Chronic Obstructive Pulmonary Disease (Copd) COPD is managed with Symbicort, Duoneb, and Ventolin inhalers. The patient is advised to continue using these medications and follow up with pulmonary care. 4. Moderate Aortic Stenosis The patient has moderate aortic stenosis with an aortic valve area of 1.2 cm. Regular monitoring through echocardiograms is recommended to assess progression. 5. Hypercholesterolemia Hypercholesterolemia is managed with atorvastatin 40 mg once daily, with an LDL goal of less than 100 mg/dL. The most recent LDL was 46 mg/dL, indicating excellent control. 6. Deep Vein Thrombosis (Dvt) The patient is on anticoagulation therapy for DVT management. 7. Rhinosinusitis Rhinosinusitis was treated with Z-Mykel and doxycycline. The patient is advised to use steam inhalation and nasal saline rinses for symptom relief. 8. Anemia Anemia was identified with a hemoglobin level of 11.4 g/dL. Further evaluation and monitoring are necessary to determine the cause and appropriate management. Discussion Notes During the visit, we discussed the management of the patient's chronic conditions, including diabetes, hypertension, and COPD. We reviewed the importance of maintaining target levels for hemoglobin A1c and LDL cholesterol. The patient was advised to continue current medications and follow up with spe cialists as needed. Patient Instructions - Continue taking all prescribed medications as directed. - Use nasal saline rinses and steam inhalation for sinus relief. - Schedule follow-up appointments with specialists as recommended. - Get a flu shot in December and consider COVID-19 vaccination.
== END 2024-11-18 11:55 | disposition home or self-care (01) ==
LOC: HO.HMCH 11:13
PROVIDERS: PCP Internal Medicine; Visit Provider Internal Medicine
DX: E11.65 Type 2 diabetes mellitus with hyperglycemia (principal); I82.409 Acute embolism and thrombosis of unspecified deep veins of unspecified lower extremity; J43.9 Emphysema, unspecified; E78.5 Hyperlipidemia, unspecified; I77.810 Thoracic aortic ectasia; I35.0 Nonrheumatic aortic (valve) stenosis; I10 Essential (primary) hypertension; N40.1 Benign prostatic hyperplasia with lower urinary tract symptoms; R35.0 Frequency of micturition; M96.1 Postlaminectomy syndrome, not elsewhere classified

== ENCOUNTER → 2024-11-18 11:12 | Outpatient (BNVA) | payer MEDICARE, MEDICAID, SELFPAY | PROVIDERS: PCP Internal Medicine; Visit Provider Internal Medicine | DX: E11.65 Type 2 diabetes mellitus with hyperglycemia (principal); I82.403 Acute embolism and thrombosis of unspecified deep veins of lower extremity, bilateral; E78.5 Hyperlipidemia, unspecified; I77.810 Thoracic aortic ectasia; I35.0 Nonrheumatic aortic (valve) stenosis; I10 Essential (primary) hypertension; N40.1 Benign prostatic hyperplasia with lower urinary tract symptoms; R35.0 Frequency of micturition; J43.9 Emphysema, unspecified; M96.1 Postlaminectomy syndrome, not elsewhere classified; J32.9 Chronic sinusitis, unspecified; D64.9 Anemia, unspecified; Z51.81 Encounter for therapeutic drug level monitoring; Z79.01 Long term (current) use of anticoagulants | CPT/HCPCS: 85610; 99211; 99212 ==

== ENCOUNTER 2024-11-18 13:28 | Outpatient (AMB) | payer MEDICARE, MEDICAID, SELFPAY ==
[2024-11-18 13:46] LABS: Prothrombin Time Whole Bld POC 24.6 sec (11.1-13.5); ~PT, ~INR - Anti Coag Clinic 2.0 (0.9-1.1)
--- NOTE | 2024-11-18 13:53 | MHC.OFFVISCO ---
Intake Intake Visit Reasons: Anticoagulation Allergies doxycycline Allergy (Intermediate, Verified 11/18/24 13:40) Nausea and Vomiting Medication List - Last Reconciled 11/18/24 by Fouzia Mcginnis RN acetaminophen ER (Tylenol Arthritis Pain) 650 mg PO Q8H 30 days amlodipine 10 mg PO DAILY ascorbic acid (vitamin C) 1 g PO DAILY atorvastatin 40 mg PO DAILY blood pressure monitor (Blood Pressure Kit) As directed blood sugar diagnostic ([employer]uch Verio test strips) one time daily blood-glucose meter (eAS[employer]uch Verio Meter) To check blood glucose once daily budesonide-formoterol 160-4.5 mcg/actuation (Symbicort) 2 puffs PO BID cholecalciferol (vitamin D3) 25 mcg PO DAILY cilostazol 100 mg PO BID cyanocobalamin (vitamin B-12) (Vitamin B-12) 250 mcg PO DAILY enoxaparin (Lovenox) 70 mg See Protocol subcut Q12H 5 days Held on 10/26/24. Instructions: Doctor's Order ferrous sulfate (Feosol) 325 mg PO DAILY fluticasone propionate 50 mcg/actuation 2 sprays intranasal DAILY gabapentin 300 mg PO TID 90 days [garlic clove 1 dose PO NEEDED] ipratropium-albuterol 0.5 mg-3 mg(2.5 mg base)/3 mL 3 mL inhalation Q6H lancets (eASICuch Delica Plus Lancet) To test bg daily lancets As directed lutein PO metformin 500 mg PO DAILY metoprolol succinate ER 25 mg PO DAILY naloxone 4 mg/actuation (Narcan) 4 mg intranasal Q2M 1 day Ventolin HFA 90 mcg/actuation (albuterol sulfate) 2 puffs inhalation Q4-6H PRN NS walker (Ultra-Light Rollator misc) As directed, ambulate at all times with walker warfarin 5 mg See Protocol PO DAILY warfarin 2.5 mg See Protocol PO DAILY 90 days Nursing Note INR: 2.0 in therapeutic range of 2-3 Medications and supplements reviewed No changes in health, diet, medications, or supplements, Denies any signs and symptoms of bleeding or bruising or clotting. Bleeding, bruising, clotting discussed Nutritional guidance given to avoid greens X 2 days and to have a serving of foods that raise the INR. Pt states he will have beets and watermelon. Dose: 2.5mg X 4 days and 5mg X 3 days F/U INR: 2 weeks Patient verbalizes understanding of instructions given Anti-Coag Initial Assessment Social Hx Patient Tobacco Use Status: Never used Tobacco Tobacco use type: Cigarette alcohol intake: former Alcohol intake frequency: does not drink Coding Level of Care Code Est Patient Level 1 Diagnoses Current use of anticoagulant therapy Z79.01 Assessment & Plan Assessment & Plan (1) Current use of anticoagulant therapy: Code(s): Z79.01 - snf (current) 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
== END 2024-11-18 13:56 | disposition home or self-care (01) ==
LOC: HO.ACS 13:28
PROVIDERS: PCP Internal Medicine; Visit Provider Internal Medicine Medical Oncology
DX: Z79.01 Long term (current) use of anticoagulants (principal)

== ENCOUNTER 2024-12-02 13:22 | Outpatient (AMB) | payer MEDICARE, MEDICAID, SELFPAY ==
[2024-12-02 13:30] LABS: Prothrombin Time Whole Bld POC 24.7 sec (11.1-13.5); ~PT, ~INR - Anti Coag Clinic 2.1 (0.9-1.1)
--- NOTE | 2024-12-02 13:36 | MHC.OFFVISCO ---
Intake Intake Visit Reasons: Anticoagulation Allergies doxycycline Allergy (Intermediate, Verified 12/02/24 13:24) Nausea and Vomiting Medication List - Last Reconciled 12/02/24 by Fouzia Mcginnis RN acetaminophen ER (Tylenol Arthritis Pain) 650 mg PO Q8H 30 days amlodipine 10 mg PO DAILY ascorbic acid (vitamin C) 1 g PO DAILY atorvastatin 40 mg PO DAILY blood pressure monitor (Blood Pressure Kit) As directed blood sugar diagnostic ([employer] Verio test strips) one time daily blood-glucose meter (BritelyTouch Verio Meter) To check blood glucose once daily budesonide-formoterol 160-4.5 mcg/actuation (Symbicort) 2 puffs PO BID cholecalciferol (vitamin D3) 25 mcg PO DAILY cilostazol 100 mg PO BID cyanocobalamin (vitamin B-12) (Vitamin B-12) 250 mcg PO DAILY enoxaparin (Lovenox) 70 mg See Protocol subcut Q12H 5 days Held on 10/26/24. Instructions: Doctor's Order ferrous sulfate (Feosol) 325 mg PO DAILY fluticasone propionate 50 mcg/actuation 2 sprays intranasal DAILY gabapentin 300 mg PO TID 90 days [garlic clove 1 dose PO NEEDED] ipratropium-albuterol 0.5 mg-3 mg(2.5 mg base)/3 mL 3 mL inhalation Q6H lancets ([employer] Delica Plus Lancet) To test bg daily lancets As directed lutein PO metformin 500 mg PO DAILY metoprolol succinate ER 25 mg PO DAILY naloxone 4 mg/actuation (Narcan) 4 mg intranasal Q2M 1 day Ventolin HFA 90 mcg/actuation (albuterol sulfate) 2 puffs inhalation Q4-6H PRN NS walker (Ultra-Light Rollator misc) As directed, ambulate at all times with walker warfarin 5 mg See Protocol PO DAILY warfarin 2.5 mg See Protocol PO DAILY 90 days Nursing Note INR: 2.1 in therapeutic range of 2-3 Medications and supplements reviewed No changes in health, diet, medications, or supplements, Denies any signs and symptoms of bleeding or bruising or clotting. Bleeding, bruising, clotting discussed Nutritional guidance given to avoid greens today and to have a serving of foods that raise the INR. Food list reviewed with pt and his son. Dose: 2.5mg X 4 days and 5mg X 3 days (M/W/F) F/U INR: 3 weeks Patient verbalizes understanding of instructions given Anti-Coag Initial Assessment Social Hx Patient Tobacco Use Status: Never used Tobacco Tobacco use type: Cigarette alcohol intake: former Alcohol intake frequency: does not drink Coding Level of Care Code Est Patient Level 1 Diagnoses Current use of anticoagulant therapy Z79.01 Assessment & Plan Assessment & Plan (1) Current use of anticoagulant therapy: Code(s): Z79.01 - [facility] (current) 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
== END 2024-12-02 13:57 | disposition home or self-care (01) ==
LOC: HO.ACS 13:22
PROVIDERS: PCP Internal Medicine; Visit Provider Internal Medicine Medical Oncology
DX: Z79.01 Long term (current) use of anticoagulants (principal)

== ENCOUNTER → 2024-12-02 13:22 | Outpatient (BNVA) | payer MEDICARE, MEDICAID, SELFPAY | PROVIDERS: PCP Internal Medicine; Visit Provider Internal Medicine Medical Oncology | DX: I82.503 Chronic embolism and thrombosis of unspecified deep veins of lower extremity, bilateral (principal); Z79.01 Long term (current) use of anticoagulants; Z51.81 Encounter for therapeutic drug level monitoring | CPT/HCPCS: 85610; 99211 ==

== ENCOUNTER → 2024-12-08 13:28 | Outpatient (REF) | payer MEDICARE, MEDICAID, SELFPAY ==
--- NOTE | 2024-12-08 13:31 | CA_ITS ---
Transthoracic Echocardiogram Patient (Last, First, Middle): Bao Reddy, Gender: M Date of : 1940 Age: 84 Procedure Date: 12/08/2024 Procedure Type: Transthoracic Echocardiogram Location: OP Height: 170.18 cm Weight: 78.02 kg BSA: 1.90 m2 Heart Rate: bpm BP: 139 / 70 mmHg V/Stol Landing Signal Officer: TO Referring MD: Reinaldo Perez MD Symptoms: I35.0 - Nonrheumatic aortic (valve) stenosis Study Quality: Adequate ECG Rhythm: Sinus Conclusions: - The left ventricular systolic function is normal. The calculated ejection fraction is 59% by biplane method. - There is moderate aortic valve stenosis. - Mitral annular calcification with possible stenosis. - There is mild dilatation of the ascending aorta measuring 4.00 cm. Findings Left Ventricle Normal left ventricular cavity size. There is mildly increased left ventricular wall thickness. The left ventricular systolic function is normal. The calculated ejection fraction is 59% by biplane method. There is no evidence of regional wall motion abnormalities. Evidence suggests grade I (mild) diastolic dysfunction. There is moderate septal asymmetric hypertrophy. Right Ventricle Normal right ventricular cavity size and systolic function. Atria Both atria are normal in size. Aortic Valve There is severe calcification of the aortic valve. There is moderate aortic valve stenosis. The peak aortic velocity is 3.76 m/s with a calculated peak gradient of 57 mmHg. The mean gradient is 36 mmHg. The aortic valve area is 1.11 cm2. There is mild aortic valve regurgitation. Mitral Valve There is moderate mitral annular calcification. There is no mitral valve regurgitation. Possible calcific mitral stenosis. Pulmonic Valve The pulmonic valve is likely normal. Tricuspid Valve There is mild tricuspid valve regurgitation. There is no evidence of pulmonary hypertension. Great Vessels The aortic arch is normal in size. There is mild dilatation of the ascending aorta measuring 4.00 cm. Venous The inferior vena cava is normal in size and collapses greater than 50% with inspiration. Pericardium/Pleural There is no evidence of pericardial effusion. Prior Study Comparison Changes noted compared to prior study dated: 06/02/2024. Slight progression of aortic stenosis. Measurements 2D Linear Measurements IVSd: 1.43 0.6-0.9/0.6-1.0 cm LVIDd: 4.14 3.9-5.3/4.2-5.9 cm LVIDd Index: 2.18 2.4-3.2/2.2-3.1 cm/m2 LVIDs: 2.65 2.0-3.6 cm LVPWd: 1.07 0.7-1.1 cm LA Diam: 3.40 2.7-3.8/3.0-4.0 cm LAIDs Index: 1.79 1.5-2.3 cm/m2 LV Mass: 230.67 67-162/88-224 g LV Mass Index: 121.40 43-95/49-115 g/m2 LVOT Diam: 2.20 3.0+(-)1.3 cm 2D Systolic Function EF 4C: 56.10 >55% EF 2C: 62.10 >55% EF BiP: 59.30 >55% Mitral Valve MV VTI: 0.43 MV Pk Yousuf: 1.75 MV Mn Yousuf: 1.24 MV Pk Grad: 12.00 MV Mn Grad: 7.00 MV Pk E: 1.23 MV PK A: 1.38 MV Decel Time: 220.00 E/A: 0.90 E'Lateral: 5.44 E'Medial: 4.46 E/E' Med: 27.60 E/E' Lat: 22.60 PHT: 64.00 MVA PHT: 3.44 MVA Continuity: 2.06 Decel [place]: 5.60 Aortic Valve AoV Pk Yousuf: 3.76 AoV Mn Yousuf: 2.90 AoV VTI: 0.80 AoV Pk Grad: 57.00 Aov Mn Grad: 36.00 MOISE Cont.VTI: 1.11 LVOT LVOT Pk Yousuf: 1.07 LVOT Mn Yousuf: 0.73 LVOT VTI: 0.23 LVOT Pk Grad: 5.00 LVOT Mn Grad: 2.00 LVOT Diam: 2.20 LVOT Area: 3.80 Diastolic Function MV Pk E: 1.23 MV Pk A: 1.38 E/A: 0.90 E'Medial: 4.46 E/E' Med: 27.60 E' Laterial: 5.44 E/E' Lat: 22.60 Right Ventricle TAPSE (mm): 22.10 TVS' Yousuf: 11.30 Tricuspid Valve RA Press: 3.00 Great Vessels Aorta Sinus of Valsalva: 3.89 2.0-3.5 cm Ao Asc: 4.00 2.1-3.4 cm Ao Arch: 3.20 Updated in Other Vendor System with Status of Final Reinaldo Perez MD electronically signed on 12/10/2024 12:42:04 PM with status of Final
== END ==
LOC: HO.CARD 13:28
PROVIDERS: PCP Internal Medicine; Visit Provider Internal Medicine
DX: I35.0 Nonrheumatic aortic (valve) stenosis (principal)
CPT/HCPCS: 93306

== ENCOUNTER → 2024-12-08 13:31 | Outpatient (BNV) | payer MEDICARE, MEDICAID, SELFPAY | PROVIDERS: PCP Internal Medicine; Visit Provider Internal Medicine | DX: I42.2 Other hypertrophic cardiomyopathy (principal); I35.2 Nonrheumatic aortic (valve) stenosis with insufficiency | CPT/HCPCS: 93306 ==

== ENCOUNTER 2024-12-23 13:35 | Outpatient (AMB) | payer MEDICARE, MEDICAID, SELFPAY ==
[2024-12-23 14:09] LABS: Prothrombin Time Whole Bld POC 28.1 sec (11.1-13.5); ~PT, ~INR - Anti Coag Clinic 2.3 (0.9-1.1)
--- NOTE | 2024-12-23 14:13 | MHC.OFFVISCO ---
Intake Intake Visit Reasons: Anticoagulation Allergies doxycycline Allergy (Intermediate, Verified 12/23/24 14:02) Nausea and Vomiting Medication List - Last Reconciled 12/23/24 by Fouzia Mcginnis, COLTON acetaminophen ER (Tylenol Arthritis Pain) 650 mg PO Q8H 30 days amlodipine 10 mg PO DAILY ascorbic acid (vitamin C) 1 g PO DAILY atorvastatin 40 mg PO DAILY blood pressure monitor (Blood Pressure Kit) As directed blood sugar diagnostic ([employer] Verio test strips) one time daily blood-glucose meter ([employer]uch Verio Meter) To check blood glucose once daily budesonide-formoterol 160-4.5 mcg/actuation (Symbicort) 2 puffs PO BID cholecalciferol (vitamin D3) 25 mcg PO DAILY cilostazol 100 mg PO BID cyanocobalamin (vitamin B-12) (Vitamin B-12) 250 mcg PO DAILY enoxaparin (Lovenox) 70 mg See Protocol subcut Q12H 5 days Held on 10/26/24. Instructions: Doctor's Order ferrous sulfate (Feosol) 325 mg PO DAILY fluticasone propionate 50 mcg/actuation 2 sprays intranasal DAILY gabapentin 300 mg PO TID 90 days [garlic clove 1 dose PO NEEDED] ipratropium-albuterol 0.5 mg-3 mg(2.5 mg base)/3 mL 3 mL inhalation Q6H lancets ([employer] Delica Plus Lancet) To test bg daily lancets As directed lutein PO metformin 500 mg PO DAILY metoprolol succinate ER 25 mg PO DAILY naloxone 4 mg/actuation (Narcan) 4 mg intranasal Q2M 1 day Ventolin HFA 90 mcg/actuation (albuterol sulfate) 2 puffs inhalation Q4-6H PRN NS walker (Ultra-Light Rollator misc) As directed, ambulate at all times with walker warfarin 5 mg See Protocol PO DAILY warfarin 2.5 mg See Protocol PO DAILY 90 days Nursing Note INR: 2.3 in therapeutic range of 2-3 Medications and supplements reviewed No changes in health, diet, medications, or supplements, Denies any signs and symptoms of bleeding or bruising or clotting. 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
== END 2024-12-23 14:17 | disposition home or self-care (01) ==
LOC: HO.ACS 13:35
PROVIDERS: PCP Internal Medicine; Visit Provider Internal Medicine Medical Oncology
DX: Z79.01 Long term (current) use of anticoagulants (principal)

== ENCOUNTER → 2024-12-23 13:35 | Outpatient (BNVA) | payer MEDICARE, MEDICAID, SELFPAY | PROVIDERS: PCP Internal Medicine; Visit Provider Internal Medicine Medical Oncology | DX: I82.503 Chronic embolism and thrombosis of unspecified deep veins of lower extremity, bilateral (principal); Z79.01 Long term (current) use of anticoagulants; Z51.81 Encounter for therapeutic drug level monitoring | CPT/HCPCS: 85610; 99211 ==

== ENCOUNTER 2025-01-06 13:14 | Outpatient (AMB) | payer MEDICARE, MEDICAID, SELFPAY ==
[2025-01-06 13:28] LABS: Prothrombin Time Whole Bld POC 18.5 sec (11.1-13.5); ~PT, ~INR - Anti Coag Clinic 1.5 (0.9-1.1)
--- NOTE | 2025-01-06 13:39 | MHC.OFFVISCO ---
Intake Intake Visit Reasons: Anticoagulation Allergies doxycycline Allergy (Intermediate, Verified 01/06/25 13:22) Nausea and Vomiting Medication List - Last Reconciled 01/06/25 by Rakel Ngo RN acetaminophen ER (Tylenol Arthritis Pain) 650 mg PO Q8H 30 days amlodipine 10 mg PO DAILY ascorbic acid (vitamin C) 1 g PO DAILY atorvastatin 40 mg PO DAILY blood pressure monitor (Blood Pressure Kit) As directed blood sugar diagnostic ([employer] Verio test strips) one time daily blood-glucose meter ([employer] Verio Meter) To check blood glucose once daily budesonide-formoterol 160-4.5 mcg/actuation (Symbicort) 2 puffs PO BID cholecalciferol (vitamin D3) 25 mcg PO DAILY cilostazol 100 mg PO BID cyanocobalamin (vitamin B-12) (Vitamin B-12) 250 mcg PO DAILY enoxaparin (Lovenox) 70 mg See Protocol subcut Q12H 5 days Held on 10/26/24. Instructions: Doctor's Order ferrous sulfate (Feosol) 325 mg PO DAILY fluticasone propionate 50 mcg/actuation 2 sprays intranasal DAILY gabapentin 300 mg PO TID 90 days [garlic clove 1 dose PO NEEDED] ipratropium-albuterol 0.5 mg-3 mg(2.5 mg base)/3 mL 3 mL inhalation Q6H lancets ([employer] Delica Plus Lancet) To test bg daily lancets As directed lutein PO metformin 500 mg PO DAILY metoprolol succinate ER 25 mg PO DAILY naloxone 4 mg/actuation (Narcan) 4 mg intranasal Q2M 1 day Ventolin HFA 90 mcg/actuation (albuterol sulfate) 2 puffs inhalation Q4-6H PRN NS walker (Ultra-Light Rollator misc) As directed, ambulate at all times with walker warfarin 5 mg See Protocol PO DAILY warfarin 2.5 mg See Protocol PO DAILY 90 days Nursing Note INR 1.5?? out of therapeutic range Medications and supplements reviewed Patient status: pt ate a lot of spinache, c/o leg aching Medications or supplements: tried a supplemt for a few days but upset his stomach Diet: good - more spinach than usual Denies any signs and symptoms of bleeding or clotting or unusual bruising Bleeding, bruising, clotting discussed Nutritional guidance given: no greens x 4 days - eat orange and reds today Dose: 7.5mg today/ 5mg tomorrow then 5mg mwf/ 2.5mg x 4 days F/U INR Date : 01/09/2025?? Patient verbalizing understanding of instructions given. Called son regarding pt status and to chk on his lovenox if has any - will call PCP Anti-Coag Initial Assessment Social Hx Patient Tobacco Use Status: Never used Tobacco Tobacco use type: Cigarette alcohol intake: former Alcohol intake frequency: does not drink Coding Level of Care Code Est Patient Level 1 Diagnoses Current use of anticoagulant therapy Z79.01 Comment t/c to son and PCP Results AMB INR Fingerstick AMB INR Fingerstick 1.5 Last Edit by Rakel Ngo RN on 01/06/25 13:37 MANUAL ENTRY - FAILED INTERFACING DURING PT VISIT Assessment & Plan Assessment & Plan (1) Current use of anticoagulant therapy: 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
== END 2025-01-06 14:53 | disposition home or self-care (01) ==
LOC: HO.ACS 13:14
PROVIDERS: PCP Internal Medicine; Visit Provider Internal Medicine Medical Oncology
DX: Z79.01 Long term (current) use of anticoagulants (principal)

== ENCOUNTER → 2025-01-06 13:14 | Outpatient (BNVA) | payer MEDICARE, MEDICAID, SELFPAY | PROVIDERS: PCP Internal Medicine; Visit Provider Internal Medicine Medical Oncology | DX: I82.503 Chronic embolism and thrombosis of unspecified deep veins of lower extremity, bilateral (principal); Z79.01 Long term (current) use of anticoagulants; Z51.81 Encounter for therapeutic drug level monitoring | CPT/HCPCS: 85610; 99211 ==

== ENCOUNTER 2025-01-09 13:28 | Outpatient (AMB) | payer MEDICARE, MEDICAID, SELFPAY ==
[2025-01-09 13:37] LABS: Prothrombin Time Whole Bld POC 27.6 sec (11.1-13.5); ~PT, ~INR - Anti Coag Clinic 2.3 (0.9-1.1)
--- NOTE | 2025-01-09 13:45 | MHC.OFFVISCO ---
Intake Intake Visit Reasons: Anticoagulation Allergies doxycycline Allergy (Intermediate, Verified 01/09/25 13:29) Nausea and Vomiting Medication List - Last Reconciled 01/09/25 by Rakel Ngo RN acetaminophen ER (Tylenol Arthritis Pain) 650 mg PO Q8H 30 days amlodipine 10 mg PO DAILY ascorbic acid (vitamin C) 1 g PO DAILY atorvastatin 40 mg PO DAILY blood pressure monitor (Blood Pressure Kit) As directed blood sugar diagnostic ([employer] Verio test strips) one time daily blood-glucose meter ([employer] Verio Meter) To check blood glucose once daily budesonide-formoterol 160-4.5 mcg/actuation (Symbicort) 2 puffs PO BID cholecalciferol (vitamin D3) 25 mcg PO DAILY cilostazol 100 mg PO BID cyanocobalamin (vitamin B-12) (Vitamin B-12) 250 mcg PO DAILY enoxaparin (Lovenox) 70 mg See Protocol subcut Q12H 5 days ferrous sulfate (Feosol) 325 mg PO DAILY fluticasone propionate 50 mcg/actuation 2 sprays intranasal DAILY gabapentin 300 mg PO TID 90 days [garlic clove 1 dose PO NEEDED] ipratropium-albuterol 0.5 mg-3 mg(2.5 mg base)/3 mL 3 mL inhalation Q6H lancets ([employer] Delica Plus Lancet) To test bg daily lancets As directed lutein PO metformin 500 mg PO DAILY metoprolol succinate ER 25 mg PO DAILY naloxone 4 mg/actuation (Narcan) 4 mg intranasal Q2M 1 day Ventolin HFA 90 mcg/actuation (albuterol sulfate) 2 puffs inhalation Q4-6H PRN NS walker (Ultra-Light Rollator misc) As directed, ambulate at all times with walker warfarin 5 mg See Protocol PO DAILY warfarin 2.5 mg See Protocol PO DAILY 90 days Nursing Note INR: 2.3 in therapeutic range Medications and supplements reviewed No changes in health, diet, medications, or supplements, Denies any signs and symptoms of bleeding or bruising or clotting. Bleeding, bruising, clotting discussed Nutritional guidance given- eat a mix of fruits and vegetables Dose: resume usual dose 5mg mwf/ 2.5mg x 4 days F/U INR: 2 weeks Patient verbalizes understanding of instructions given Anti-Coag Initial Assessment Social Hx Patient Tobacco Use Status: Never used Tobacco Tobacco use type: Cigarette alcohol intake: former Alcohol intake frequency: does not drink Questionnaires HAS-BLED Does the patient had uncontrolled Hypertension?: No Does the patient have renal disease?: Yes Does the patient have liver disease?: No Does the patient have a history of stroke?: No Has the patient had major bleeding or predisposition to bleeding?: No Does the patient have labile INRs?: Yes Is the patient over 65 years of age?: Yes Is the patient on medications that gives them a predisposition to bleeding?: Yes Does the patient use alcohol?: No HAS-BLED Score: 4 CHADSVASC Age: 75 or over Gender: Male Does the patient have a history of CHF?: No Does the patient have a history of Hypertension?: Yes Does the patient have a history of Stroke/TIA/Thromboembolism?: Yes Does the patient have a history of Vascular Disease (prior MD, PAD or aortic plaque)?: Yes (hx of arterial clots , 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 ) Does the patient have a history of Diabetes?: Yes CHADS VACS Score: 7 Umesh Prediction Score Rsk VTE Active Cancer: No Previous VTE, excluding superficial vein thrombosis: Yes Reduced mobility: Yes Already known Thrombophilic Condition: Yes With-in last month Trauma and/or Surgery: No Elderly 70 year or older: Yes Heart and/or Respiratory Failure: No Acute Myocardial infarction and/or Ischemic Stroke: No Acute Infection and/or Rheumatologic Disorder: No Obesity (BMI 30 or greater): No Ongoing Hormonal Treatment: No Score: 10 Umesh Score less than 4; Low Risk of VTE Umesh Score 4 or greater; High Risk of VTE Coding Level of Care Code Est Patient Level 1 Diagnoses Current use of anticoagulant therapy Z79.01 Assessment & Plan Assessment & Plan (1) Current use of anticoagulant therapy: 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
== END 2025-01-09 13:52 | disposition home or self-care (01) ==
LOC: HO.ACS 13:28
PROVIDERS: PCP Internal Medicine; Visit Provider Internal Medicine Medical Oncology
DX: Z79.01 Long term (current) use of anticoagulants (principal)

== ENCOUNTER → 2025-01-09 13:28 | Outpatient (BNVA) | payer MEDICARE, MEDICAID, SELFPAY | PROVIDERS: PCP Internal Medicine; Visit Provider Internal Medicine Medical Oncology | DX: I82.503 Chronic embolism and thrombosis of unspecified deep veins of lower extremity, bilateral (principal); Z79.01 Long term (current) use of anticoagulants; Z51.81 Encounter for therapeutic drug level monitoring | CPT/HCPCS: 85610; 99211 ==

== ENCOUNTER 2025-01-12 12:47 | Outpatient (AMB) | payer MEDICARE, MEDICAID, SELFPAY ==
[2025-01-12 13:10] VITALS: BP 102/52; PULSE 72; O2SAT 97; BMI 26.5
--- NOTE | 2025-01-12 13:10 | A.OFFVIS_ITS ---
Vital Signs 01/12/25 13:10 Height 5 ft 8 in Weight 174 lb 2.643 oz BMI 26.5 BP 102/52 L Blood Pressure Location Lt brachial Position Sitting Pulse 72 Pulse Source Pulse Oximeter Pulse Oximetry (%) 97 Oxygen Delivery Method Room Air Intake Visit Reasons: Cough Intake Note: pt is here for follow up and feels good, no issues. 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 Service Required: No Group Supervisor Yard: Group Supervisor Yard offered & declined Allergies doxycycline Allergy (Intermediate, Verified 01/09/25 13:29) Nausea and Vomiting Medication List - Last Reconciled 01/12/25 by Main Luis MD acetaminophen ER (Tylenol Arthritis Pain) 650 mg PO Q8H 30 days amlodipine 10 mg PO DAILY ascorbic acid (vitamin C) 1 g PO DAILY atorvastatin 40 mg PO DAILY blood pressure monitor (Blood Pressure Kit) As directed blood sugar diagnostic ([employer] Verio test strips) one time daily blood-glucose meter ([employer] Verio Meter) To check blood glucose once daily budesonide-formoterol 160-4.5 mcg/actuation (Symbicort) 2 puffs PO BID cholecalciferol (vitamin D3) 25 mcg PO DAILY cilostazol 100 mg PO BID cyanocobalamin (vitamin B-12) (Vitamin B-12) 250 mcg PO DAILY enoxaparin (Lovenox) 70 mg See Protocol subcut Q12H 5 days ferrous sulfate (Feosol) 325 mg PO DAILY fluticasone propionate 50 mcg/actuation 2 sprays intranasal DAILY gabapentin 300 mg PO TID 90 days [garlic clove 1 dose PO NEEDED] ipratropium-albuterol 0.5 mg-3 mg(2.5 mg base)/3 mL 3 mL inhalation Q6H lancets ([employer] Delica Plus Lancet) To test bg daily lancets As directed lutein PO metformin 500 mg PO DAILY metoprolol succinate ER 25 mg PO DAILY naloxone 4 mg/actuation (Narcan) 4 mg intranasal Q2M 1 day Ventolin HFA 90 mcg/actuation (albuterol sulfate) 2 puffs inhalation Q4-6H PRN NS walker (Ultra-Light Rollator misc) As directed, ambulate at all times with walker warfarin 5 mg See Protocol PO DAILY warfarin 2.5 mg See Protocol PO DAILY 90 days Do you need a note to return to daycare/school/sports/work: No HPI HPI Cough: Details: 84 YEARS OLD VERY PLEASANT GENTLEMAN. COMES FOR FOLLOW-UP AFTER 2 MONTHS THIS TIME. HE HAS CHRONIC OBSTRUCTIVE PULMONARY DISEASE WHICH REMAINS WELL CONTROLLED. 2 MONTHS AGO HE HAD COME FOR AN URGENT VISIT BECAUSE HE WAS HAVING INCREASED COUGH. HOWEVER HE HAD ALREADY BEEN TREATED WITH A COURSE OF Z-PINO AND DOXYCYCLINE. I ADDED DUONEB UPDRAFT AND TOLD HIM TO USE Q 4-6 HOURS PRN. TODAY HE STATES THAT HE IS FEELING FINE BACK TO HIS BASELINE AND DOES NOT HAVE MUCH COUGH. HE WALKS AROUND SLOWLY WITH A CANE AND DENIES ANY SHORTNESS OF BREATH. 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, without long-term current use of insulin Effusion of right knee joint Contusion of right knee Hemarthrosis involving knee joint Left shoulder pain Appetite impaired Hearing difficulty Weight loss Cough Non-rheumatic aortic stenosis Chronic pain syndrome Postlaminectomy syndrome Diabetic polyneuropathy Gastric carcinoma Peripheral vascular disease Pneumonia Hyperlipidemia LDL goal <70 COPD (chronic obstructive pulmonary disease) Type 2 diabetes mellitus with hyperglycemia Vitamin B12 deficiency Bronchiectasis Moderate aortic stenosis Compression fracture of L1 lumbar vertebra Recurrent deep vein thrombosis (DVT) Peripheral vascular disease History of gastric cancer BPH (benign prostatic hyperplasia) COPD (chronic obstructive pulmonary disease) Joint pain Surgical History History of colonoscopy Amputation of toe of left foot History of gastrectomy Family History Father Diabetes Cancer Mother Diabetes Brother Lung cancer Social History Household Members: None Household Members Other:: lives alone son checks by daily Housing: Apartment Are you a primary rehab care assistant to a significant other at home: No Do you presently have visiting nurse or other home services: No Alcohol intake: former Year quit: 1970 Patient Tobacco Use Status: Never used Tobacco Tobacco use type: Cigarette e-Cigarette/Vaping Use: Never Used Second Hand Smoke Exposure: No service: No Current occupational status: retired Cognitive needs: Yes (walker/power chair) Hearing needs: No Vision needs: Yes (reading) Review of Systems Const All systems reviewed & are unremarkable except as noted in HPI and below Denies poor appetite and Denies weakness Eyes Denies no additional complaints ENT Reports Normal hearing present, Denies dizziness, Reports nasal congestion (MILD ), Denies tinnitus and Denies sore throat Card Denies chest pain, Denies syncope, Denies rapid heart rate and Denies dyspnea Resp Denies cough and Denies dyspnea GI Denies change in stool character, Reports constipation, Denies diarrhea, Denies nausea and Denies vomiting Denies dysuria and Denies urinary frequency Musc Reports back pain and Reports stiffness Skin/Breast Reports system reviewed and no additional complaints, except as documented Neuro Reports Normal hearing present, Denies confusion, Denies dizziness, Denies syncope and Denies weakness Psych Denies confusion Endo Reports other (Being treated for diabetes mellitus) Physical Exam Vital Signs: Last Vital Signs Pulse 72 01/12/25 13:10 BP 102/52 L 01/12/25 13:10 Pulse Ox 97 01/12/25 13:10 Oxygen Delivery Method Room Air 01/12/25 13:10 BMI result Body Mass Index 26.5 Const General: No confusion Orientation/consciousness: No confusion HEENT Head: Yes normal to inspection General nose exam: No nasal polyps present and No nasal discharge present Face and sinus: Yes sinuses nontender Mouth: oropharynx normal (THERE IS MILD TO MODERATE DEGREE OF MUCUS IN THE NASOPHARYNX) Throat: Yes posterior oropharynx normal Eyes General: appearance normal, both eyes and all related structures Neck Neck: Yes normal visual inspection, Yes no lymphadenopathy, Yes trachea midline and Yes no JVD Thyroid: Thyroid normal Chest Chest palpation & inspection: normal inspection of the chest, normal palpation of entire chest wall and no tenderness Resp Other: Percussion note resonant on both sides. Breath sounds are slightly diminished and prolonged expiratory phase on both sides. No wheezes rhonchi or crepitations are heard today . Cardio Palpation: normal PMI Rate: regular rate Rhythm: regular rhythm Heart sounds: no gallops and no murmurs GI Palpation (GI): Soft to palpation, nontender, No hepatosplenomegaly present and no masses Auscultation: normal bowel sounds Back/Spine/Pelvis Thoracic/Lumbar Spine: thoracic and lumbar spine normal to inspection, thoraco- lumbar ROM limited and thoraco-lumbar spasm Skin General skin exam: no rashes or lesions noted Neuro General: No confusion Cranial nerves: Yes Normal hearing present Extrem General: Yes normal to inspection, Yes no clubbing, cyanosis or edema and Yes no calf tenderness Psych Mental Status: mental status grossly normal Speech and movement: Normal speech and movement present Assessment & Plan Assessment & Plan (1) COPD (chronic obstructive pulmonary disease): Comment: This patient is well known to have chronic obstructive pulmonary disease, moderately severe. He is staying stable with the current medical regimen , except for intermittent increase in cough and mucus production. At present he is very stable , and cough is down to minimal. Code(s): J44.9 - Chronic obstructive pulmonary disease, unspecified Category: Medical Qualifiers: COPD type: emphysema Emphysema type: unspecified Qualified Code(s): J43.9 - Emphysema, unspecified Plan: Advised to continue the present regimen which includes: Symbicort 160-4.52 puffs b.i.d. Ipratropium-albuterol solution in the nebulizer Q 4-6 hours prn if he has wheezing or cough. (2) Rhinosinusitis: Comment: He does have intermittent runny nose with nasal congestion , and increased cough. At present he has no active nasal congestion or cough. Code(s): J32.9 - Chronic sinusitis, unspecified Category: Medical Plan: Advised to use Flonase-52 spray in each nostril daily Coding Level of Care Code Est Pt Level 3 (72812) Diagnoses Pulmonary emphysema, unspecified emphysema type J43.9 COPD type: emphysema Emphysema type: unspecified Rhinosinusitis J32.9
== END 2025-01-12 13:30 | disposition home or self-care (01) ==
LOC: HO.HPS 12:48
PROVIDERS: PCP Internal Medicine; Visit Provider Internal Medicine
DX: J43.9 Emphysema, unspecified (principal); J32.9 Chronic sinusitis, unspecified
CPT/HCPCS: 99213

== ENCOUNTER → 2025-01-12 12:47 | Outpatient (BNVA) | payer MEDICARE, MEDICAID, SELFPAY | PROVIDERS: PCP Internal Medicine; Visit Provider Internal Medicine | DX: J32.9 Chronic sinusitis, unspecified (principal); J43.9 Emphysema, unspecified | CPT/HCPCS: 99212 ==

== ENCOUNTER 2025-01-23 13:20 | Outpatient (AMB) | payer MEDICARE, MEDICAID, SELFPAY ==
[2025-01-23 13:41] LABS: Prothrombin Time Whole Bld POC 20.2 sec (11.1-13.5); ~PT, ~INR - Anti Coag Clinic 1.7 (0.9-1.1)
--- NOTE | 2025-01-23 13:43 | MHC.OFFVISCO ---
Intake Intake Visit Reasons: Anticoagulation Allergies doxycycline Allergy (Intermediate, Verified 01/23/25 13:35) Nausea and Vomiting Medication List - Last Reconciled 01/23/25 by Fouzia Mcginnis, RN acetaminophen ER (Tylenol Arthritis Pain) 650 mg PO Q8H 30 days amlodipine 10 mg PO DAILY ascorbic acid (vitamin C) 1 g PO DAILY atorvastatin 40 mg PO DAILY blood pressure monitor (Blood Pressure Kit) As directed blood sugar diagnostic ([employer] Verio test strips) one time daily blood-glucose meter ([employer] Verio Meter) To check blood glucose once daily budesonide-formoterol 160-4.5 mcg/actuation (Symbicort) 2 puffs PO BID cholecalciferol (vitamin D3) 25 mcg PO DAILY cilostazol 100 mg PO BID cyanocobalamin (vitamin B-12) (Vitamin B-12) 250 mcg PO DAILY enoxaparin (Lovenox) 70 mg See Protocol subcut Q12H 5 days ferrous sulfate (Feosol) 325 mg PO DAILY fluticasone propionate 50 mcg/actuation 2 sprays intranasal DAILY gabapentin 300 mg PO TID 90 days [garlic clove 1 dose PO NEEDED] ipratropium-albuterol 0.5 mg-3 mg(2.5 mg base)/3 mL 3 mL inhalation Q6H lancets ([employer] Delica Plus Lancet) To test bg daily lancets As directed lutein PO metformin 500 mg PO DAILY metoprolol succinate ER 25 mg PO DAILY naloxone 4 mg/actuation (Narcan) 4 mg intranasal Q2M 1 day Ventolin HFA 90 mcg/actuation (albuterol sulfate) 2 puffs inhalation Q4-6H PRN NS walker (Ultra-Light Rollator misc) As directed, ambulate at all times with walker warfarin 5 mg See Protocol PO DAILY warfarin 2.5 mg See Protocol PO DAILY 90 days Nursing Note Pt to [facility] accompanied by son INR:?1.7 out of therapeutic range of 2-3 Pt denies missed dose Medications and supplements reviewed Patient status: no changes Medications or supplements: no changes Diet: usual diet for pt Denies any signs and symptoms of bleeding or clotting or unusual bruising Bleeding, bruising, clotting discussed Nutritional guidance given: to have a serving of foods that raise the INR. Food list reviewed with pt and son. Pt's son states pt will have beets today Dose: increase today's dose from 5mg to 7.5mg then usual dose of 2.5mg X 4 days and 5mg X 3 days. F/U INR Date: 2 weeks?? Patient and son verbalizing understanding of instructions with read back given. Anti-Coag Initial Assessment Social Hx Patient Tobacco Use Status: Never used Tobacco Tobacco use type: Cigarette alcohol intake: former Alcohol intake frequency: does not drink Coding Level of Care Code Est Patient Level 1 Diagnoses Current use of anticoagulant therapy Z79.01 Results AMB INR Fingerstick AMB INR Fingerstick 1.7 Last Edit by Fouzia Mcginnis RN on 01/23/25 13:40 interface delay Assessment & Plan Assessment & Plan (1) Current use of anticoagulant therapy: Code(s): Z79.01 - [facility] (current) 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
== END 2025-01-23 13:55 | disposition home or self-care (01) ==
LOC: HO.ACS 13:20
PROVIDERS: PCP Internal Medicine; Visit Provider Internal Medicine Medical Oncology
DX: Z79.01 Long term (current) use of anticoagulants (principal)

== ENCOUNTER → 2025-01-23 13:20 | Outpatient (BNVA) | payer MEDICARE, MEDICAID, SELFPAY | PROVIDERS: PCP Internal Medicine; Visit Provider Internal Medicine Medical Oncology | DX: Z79.01 Long term (current) use of anticoagulants (principal) | CPT/HCPCS: 85610; 99211 ==

== ENCOUNTER 2025-01-27 08:10 | Outpatient (REF) | payer MEDICARE, MEDICAID, SELFPAY ==
[2025-01-27 08:22] LABS: MANUAL DIFF FLAG NO
[2025-01-27 08:45] LABS: Hematocrit 39.2 % (42.0-52.0); Hemoglobin 12.5 g/dl (14.0-18.0); Imm Gran Abs Auto 0.01 X10*3/uL (0.00-0.03); Imm Gran Pct Auto 0.2 % (0.0-0.4); Lymphocytes Absolute Auto 2.1 X10*3/uL (1.2-4.9); Mean Corpuscular HGB Conc 31.9 g/dl (31.0-36.0); Mean Corpuscular Hemoglobin 28.6 pg (27.0-33.0); Mean Corpuscular Volume 89.7 fL (80.0-98.0); NRBC Abs Auto 0.000 X10*3/uL (0.0-0.012); NRBC Pct Auto 0.0 /100WBC (0.0-0.2); Platelet Count 136 X10*3/uL (160-400); Red Blood Count 4.37 X10*6/uL (4.60-5.80); Reticulocytes Absolute 0.034 X10*6/uL (0.026-0.095); White Blood Count 6.2 X10*3/uL (4.8-10.8)
[2025-01-27 09:28] LABS: Alanine Aminotransferase 19 U/L (0-40); Albumin Level 4.6 g/dL (3.5-5.0); Alkaline Phosphatase 96 U/L (39-117); Anion Gap 11 (12-20); Aspartate Amino Transferase 27 U/L (5-37); Blood Urea Nitrogen 17 mg/dL (9-16); Calcium 9.6 mg/dL (8.4-10.2); Carbon Dioxide 26 mmol/L (22-29); Chloride 110 mmol/L (96-108); Estimated Glomerular Filt Rate 45; Iron 76 mcg/dL (45-160); Percent Iron Saturation 40 % (15-50); Potassium 4.6 mmol/L (3.3-5.1); Sodium 142 mmol/L (135-145); Total Iron Binding Capacity 192 mcg/dL (228-428); Total Protein 7.2 g/dL (6.5-8.0); Unsaturated Iron Binding 116 ug/dL
[2025-01-27 09:41] LABS: Ferritin 1023 ng/mL (20-250)
[2025-01-27 09:54] LABS: Folate 13.6 ng/mL (> or = 4.0); Vitamin B12 1541 pg/mL (200-900)
== END 2025-01-27 08:11 | disposition home or self-care (01) ==
LOC: HO.LAB 08:10
PROVIDERS: PCP Internal Medicine; Visit Provider Internal Medicine
DX: K92.1 Melena (principal)
CPT/HCPCS: 36415; 80053; 82607; 82728; 82746; 83540; 85025; 85045

== ENCOUNTER 2025-02-07 11:33 | Outpatient (AMB) | payer MEDICARE, MEDICAID, SELFPAY ==
[2025-02-07 11:42] LABS: Prothrombin Time Whole Bld POC 17.9 sec (11.1-13.5); ~PT, ~INR - Anti Coag Clinic 1.5 (0.9-1.1)
--- NOTE | 2025-02-07 11:57 | MHC.OFFVISCO ---
Intake Intake Visit Reasons: Anticoagulation Allergies doxycycline Allergy (Intermediate, Verified 02/07/25 11:34) Nausea and Vomiting Medication List - Last Reconciled 02/07/25 by Isabela Freeman RN acetaminophen ER (Tylenol Arthritis Pain) 650 mg PO Q8H 30 days amlodipine 10 mg PO DAILY ascorbic acid (vitamin C) 1 g PO DAILY atorvastatin 40 mg PO DAILY blood pressure monitor (Blood Pressure Kit) As directed blood sugar diagnostic ([employer] Verio test strips) one time daily blood-glucose meter ([employer] Verio Meter) To check blood glucose once daily budesonide-formoterol 160-4.5 mcg/actuation (Symbicort) 2 puffs PO BID cholecalciferol (vitamin D3) 25 mcg PO DAILY cilostazol 100 mg PO BID cyanocobalamin (vitamin B-12) (Vitamin B-12) 250 mcg PO DAILY enoxaparin (Lovenox) 70 mg See Protocol subcut Q12H 5 days ferrous sulfate (Feosol) 325 mg PO DAILY fluticasone propionate 50 mcg/actuation 2 sprays intranasal DAILY gabapentin 300 mg PO TID 90 days [garlic clove 1 dose PO NEEDED] ipratropium-albuterol 0.5 mg-3 mg(2.5 mg base)/3 mL 3 mL inhalation Q6H lancets ([employer] Delica Plus Lancet) To test bg daily lancets As directed lutein 6 mg PO NEEDED PRN metformin 500 mg PO DAILY metoprolol succinate ER 25 mg PO DAILY naloxone 4 mg/actuation (Narcan) 4 mg intranasal Q2M 1 day Ventolin HFA 90 mcg/actuation (albuterol sulfate) 2 puffs inhalation Q4-6H PRN NS walker (Ultra-Light Rollator misc) As directed, ambulate at all times with walker warfarin 5 mg See Protocol PO DAILY warfarin 2.5 mg See Protocol PO DAILY 90 days Nursing Note PT.DENIES ANY MISSED DOSES, BUT HAS HAD INCREASED GREENS THIS WEEK SON STATES. NO CP,SOB,DIET/MED CHANGES,FALLS OR SX OF BLEEDING. BOOST WARFARIN TO 7.5MGM TODAY AND FOLLOW-UP IN 1 WEEK. INR REPORTED TO (DONNA) AT 11:55AM. REQUEST TO MD IF NEED FOR LOVENOX TODAY. PT.WILL NEED SCRIPT Anti-Coag Initial Assessment Social Hx Patient Tobacco Use Status: Never used Tobacco Tobacco use type: Cigarette alcohol intake: former Alcohol intake frequency: does not drink Coding Level of Care Code Est Patient Level 1 Diagnoses Current use of anticoagulant therapy Z79.01 Assessment & Plan Assessment & Plan (1) Current use of anticoagulant therapy: Code(s): Z79.01 - [facility] (current) 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
== END 2025-02-07 12:02 | disposition home or self-care (01) ==
LOC: HO.ACS 11:33
PROVIDERS: PCP Internal Medicine; Visit Provider Internal Medicine Medical Oncology
DX: Z79.01 Long term (current) use of anticoagulants (principal)

== ENCOUNTER → 2025-02-07 11:33 | Outpatient (BNVA) | payer MEDICARE, MEDICAID, SELFPAY | PROVIDERS: PCP Internal Medicine; Visit Provider Internal Medicine Medical Oncology | DX: I82.503 Chronic embolism and thrombosis of unspecified deep veins of lower extremity, bilateral (principal); Z51.81 Encounter for therapeutic drug level monitoring; Z79.01 Long term (current) use of anticoagulants | CPT/HCPCS: 85610; 99211 ==

== ENCOUNTER 2025-02-10 11:10 | Outpatient (AMB) | payer MEDICARE, MEDICAID, SELFPAY ==
--- NOTE | 2025-02-10 11:36 | MHC.OFFVISCO ---
Intake Intake Visit Reasons: Anticoagulation Allergies doxycycline Allergy (Intermediate, Verified 02/07/25 11:34) Nausea and Vomiting Nursing Note INR: 1.9 in therapeutic range- unable to determine why INR has been trending low- c/o bilat leg and foot pain - states md is aware and is on gabapentin, reports he has tried tylenol for pain 650 mg with no relief. Pt and his son enc to discuss alternative supplement with PCP and pharmacy: Alpha Lipoic Acid to assist with his pain *Pt to have vascular consult in near future Medications and supplements reviewed *pt on lovneox bridge for low INR - he will cont lovenox per md order today Denies any signs and symptoms of bleeding or bruising or clotting. Bleeding, bruising, clotting discussed Nutritional guidance given - avoid greens today and tomorrow Dose: increase weekly dose 5mg x 4 days/2.5mg mwf F/U INR: 02/14/25 to make sure INR remains 2.0 or greater Patient and son verbalizes understanding of instructions given Anti-Coag Initial Assessment Social Hx Patient Tobacco Use Status: Never used Tobacco Tobacco use type: Cigarette alcohol intake: former Alcohol intake frequency: does not drink Coding Level of Care Code Est Patient Level 1 Diagnoses Current use of anticoagulant therapy Z79.01 Results AMB INR Fingerstick AMB INR Fingerstick 1.9 Last Edit by Rakel Ngo RN on 02/10/25 11:22 manual entry - failed interfacing Assessment & Plan Assessment & Plan (1) Current use of anticoagulant therapy: Code(s): Z79.01 - retirement (current) 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
[2025-02-10 12:08] LABS: Prothrombin Time Whole Bld POC 23.1 sec (11.1-13.5); ~PT, ~INR - Anti Coag Clinic 1.9 (0.9-1.1)
== END 2025-02-10 11:50 | disposition home or self-care (01) ==
LOC: HO.ACS 11:10
PROVIDERS: PCP Internal Medicine; Visit Provider Internal Medicine Medical Oncology
DX: Z79.01 Long term (current) use of anticoagulants (principal)

== ENCOUNTER → 2025-02-10 11:10 | Outpatient (BNVA) | payer MEDICARE, MEDICAID, SELFPAY | PROVIDERS: PCP Internal Medicine; Visit Provider Internal Medicine Medical Oncology | DX: I82.503 Chronic embolism and thrombosis of unspecified deep veins of lower extremity, bilateral (principal); Z51.81 Encounter for therapeutic drug level monitoring; Z79.01 Long term (current) use of anticoagulants | CPT/HCPCS: 85610; 99211 ==

== ENCOUNTER 2025-02-14 13:51 | Outpatient (AMB) | payer MEDICARE, MEDICAID, SELFPAY ==
--- NOTE | 2025-02-14 14:20 | MHC.OFFVISCO ---
Intake Intake Visit Reasons: Anticoagulation Allergies doxycycline Allergy (Intermediate, Verified 02/14/25 13:53) Nausea and Vomiting Medication List - Last Reconciled 02/14/25 by Rakel Ngo RN [(Ultra-Light Rollator [facility] As directed] acetaminophen ER (Tylenol Arthritis Pain) 650 mg PO Q8H 30 days amlodipine 10 mg PO DAILY ascorbic acid (vitamin C) 1 g PO DAILY atorvastatin 40 mg PO DAILY blood pressure monitor (Blood Pressure Kit) As directed blood sugar diagnostic ([employer] Verio test strips) one time daily blood-glucose meter ([employer] Verio Meter) To check blood glucose once daily budesonide-formoterol 160-4.5 mcg/actuation (Symbicort) 2 puffs PO BID cholecalciferol (vitamin D3) 25 mcg PO DAILY cilostazol 100 mg PO BID cyanocobalamin (vitamin B-12) (Vitamin B-12) 250 mcg PO DAILY enoxaparin (Lovenox) 70 mg See Protocol subcut Q12H 5 days ferrous sulfate (Feosol) 325 mg PO DAILY fluticasone propionate 50 mcg/actuation 2 sprays intranasal DAILY gabapentin 300 mg PO TID 90 days [garlic clove 1 dose PO NEEDED] ipratropium-albuterol 0.5 mg-3 mg(2.5 mg base)/3 mL 3 mL inhalation Q6H lancets ([employer] Delica Plus Lancet) To test bg daily lancets As directed metformin 500 mg PO DAILY metoprolol succinate ER 25 mg PO DAILY naloxone 4 mg/actuation (Narcan) 4 mg intranasal Q2M 1 day Ventolin HFA 90 mcg/actuation (albuterol sulfate) 2 puffs inhalation Q4-6H PRN NS walker (Ultra-Light Rollator [facility]) As directed, ambulate at all times with walker warfarin 2.5 mg See Protocol PO DAILY 90 days warfarin 5 mg See Protocol PO DAILY Nursing Note INR: 3.7 OUT therapeutic range- did not greens this past week due to previous INR being 1.9 subtherapeutic Son researches alternative supplements and foods to improve his father's health- many of the one's he finds interact with warfarin. Enc him to cont to eat healthy food choices. If there is a supplement he really believes in - he is enc to ask PCP and his Pharmacist, [facility] will also search for interactions to help guide them in their decision - risks to be considered and taken seriously Medications and supplements reviewed No changes in health, medications, or supplements, Denies any signs and symptoms of bleeding or bruising or clotting. Bleeding, bruising, clotting discussed Nutritional guidance given - resume weekly greens - son wants to give him olive oil daily ( has both vit e and vit k in it) Dose: decrease to 2.5mg today and eat greens then resume 2.5mg mwf/ 5mg x 4 days F/U INR: 10 days Patient verbalizes understanding of instructions given Anti-Coag Initial Assessment Social Hx Patient Tobacco Use Status: Never used Tobacco Tobacco use type: Cigarette alcohol intake: former Alcohol intake frequency: does not drink Coding Level of Care Code Est Patient Level 1 Diagnoses Current use of anticoagulant therapy Z79.01 Results AMB INR Fingerstick AMB INR Fingerstick 3.7 Last Edit by Rakel Ngo RN on 02/14/25 14:06 Assessment & Plan Assessment & Plan (1) Current use of anticoagulant therapy: Code(s): Z79.01 - [facility] (current) 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
[2025-02-15 08:29] LABS: Prothrombin Time Whole Bld POC 44.4 sec (11.1-13.5); ~PT, ~INR - Anti Coag Clinic 3.7 (0.9-1.1)
== END 2025-02-14 14:27 | disposition home or self-care (01) ==
LOC: HO.ACS 13:51
PROVIDERS: PCP Internal Medicine; Visit Provider Internal Medicine Medical Oncology
DX: Z79.01 Long term (current) use of anticoagulants (principal)

== ENCOUNTER → 2025-02-14 13:51 | Outpatient (BNVA) | payer MEDICARE, MEDICAID, SELFPAY | PROVIDERS: PCP Internal Medicine; Visit Provider Internal Medicine Medical Oncology | DX: I82.503 Chronic embolism and thrombosis of unspecified deep veins of lower extremity, bilateral (principal); Z51.81 Encounter for therapeutic drug level monitoring; Z79.01 Long term (current) use of anticoagulants | CPT/HCPCS: 85610; 99211 ==

== ENCOUNTER 2025-02-24 13:00 | Outpatient (AMB) | payer MEDICARE, MEDICAID, SELFPAY ==
[2025-02-24 13:11] LABS: Prothrombin Time Whole Bld POC 25.1 sec (11.1-13.5); ~PT, ~INR - Anti Coag Clinic 2.1 (0.9-1.1)
--- NOTE | 2025-02-24 13:40 | MHC.OFFVISCO ---
Intake Intake Visit Reasons: Anticoagulation Allergies doxycycline Allergy (Intermediate, Verified 02/24/25 13:11) Nausea and Vomiting Medication List - Last Reconciled 02/24/25 by Ame Rosas RN [(Ultra-Light Rollator misc As directed] acetaminophen ER (Tylenol Arthritis Pain) 650 mg PO Q8H 30 days amlodipine 10 mg PO DAILY ascorbic acid (vitamin C) 1 g PO DAILY atorvastatin 40 mg PO DAILY benzonatate 200 mg PO BID-TID PRN blood pressure monitor (Blood Pressure Kit) As directed blood sugar diagnostic ([employer] Verio test strips) one time daily blood-glucose meter ([employer] Verio Meter) To check blood glucose once daily budesonide-formoterol 160-4.5 mcg/actuation (Symbicort) 2 puffs PO BID cholecalciferol (vitamin D3) 25 mcg PO DAILY cilostazol 100 mg PO BID cyanocobalamin (vitamin B-12) (Vitamin B-12) 250 mcg PO DAILY enoxaparin (Lovenox) 70 mg See Protocol subcut Q12H 5 days ferrous sulfate (Feosol) 325 mg PO DAILY fluticasone propionate 50 mcg/actuation 2 sprays intranasal DAILY gabapentin 300 mg PO TID 90 days [garlic clove 1 dose PO NEEDED] ipratropium-albuterol 0.5 mg-3 mg(2.5 mg base)/3 mL 3 mL inhalation Q6H lancets ([employer] Delica Plus Lancet) To test bg daily lancets As directed metformin 500 mg PO DAILY metoprolol succinate ER 25 mg PO DAILY naloxone 4 mg/actuation (Narcan) 4 mg intranasal Q2M 1 day Ventolin HFA 90 mcg/actuation (albuterol sulfate) 2 puffs inhalation Q4-6H PRN NS walker (Ultra-Light Rollator misc) As directed, ambulate at all times with walker warfarin 2.5 mg See Protocol PO DAILY 90 days warfarin 5 mg See Protocol PO DAILY Nursing Note Pt to [facility] accompanied by son INR:?2.1 in therapeutic range of 2-3 Medications and supplements reviewed Patient status: has had a cough last couple of days, son has given him Robitussin and srinivas tea Medications or supplements: no changes Diet: usual diet for pt Denies any signs and symptoms of bleeding or clotting or unusual bruising Bleeding, bruising, clotting discussed Nutritional guidance given: to have the same amount of greens as usual this week. Dose: resume previous dose 5mg 4 days and 2.5 mg M W F F/U INR Date: 10 days Patient and son verbalizing understanding of instructions with read back given. Anti-Coag Initial Assessment Social Hx Patient Tobacco Use Status: Never used Tobacco Tobacco use type: Cigarette alcohol intake: former Alcohol intake frequency: does not drink Coding Level of Care Code Est Patient Level 1 Diagnoses Current use of anticoagulant therapy Z79.01 Assessment & Plan Assessment & Plan (1) Current use of anticoagulant therapy: Code(s): Z79.01 - [facility] (current) 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
== END 2025-02-24 13:48 | disposition home or self-care (01) ==
LOC: HO.ACS 13:00
PROVIDERS: PCP Internal Medicine; Visit Provider Internal Medicine Medical Oncology
DX: Z79.01 Long term (current) use of anticoagulants (principal)

== ENCOUNTER → 2025-02-24 13:00 | Outpatient (BNVA) | payer MEDICARE, MEDICAID, SELFPAY | PROVIDERS: PCP Internal Medicine; Visit Provider Internal Medicine Medical Oncology | DX: I82.503 Chronic embolism and thrombosis of unspecified deep veins of lower extremity, bilateral (principal); Z79.01 Long term (current) use of anticoagulants; Z51.81 Encounter for therapeutic drug level monitoring | CPT/HCPCS: 85610; 99211 ==

== ENCOUNTER 2025-02-28 14:30 | Outpatient (AMB) | payer MEDICARE, MEDICAID, SELFPAY ==
[2025-02-28 14:32] VITALS: BP 120/60; PULSE 74; BMI 25.0
--- NOTE | 2025-02-28 14:32 | A.OFFVIS_ITS ---
Vital Signs 02/28/25 14:32 Height 5 ft 10 in Weight 174 lb 2.643 oz BMI 25.0 BP 120/60 Blood Pressure Location Lt brachial Position Sitting Pulse 74 Pulse Source Pulse Oximeter Intake Visit Reasons: follow up after echo Inventory Control/Shipping Receiving Required: Yes Inventory Control/Shipping Receiving Services: Inventory Control/Shipping Receiving Offered & Declined Accompanied by: Son Allergies doxycycline Allergy (Intermediate, Verified 02/24/25 13:11) Nausea and Vomiting Medication List - Last Reconciled 02/28/25 by Reinaldo Perez MD [(Ultra-Light Rollator misc As directed] acetaminophen ER (Tylenol Arthritis Pain) 650 mg PO Q8H 30 days amlodipine 10 mg PO DAILY ascorbic acid (vitamin C) 1 g PO DAILY atorvastatin 40 mg PO DAILY blood pressure monitor (Blood Pressure Kit) As directed blood sugar diagnostic ([employer] Verio test strips) one time daily blood-glucose meter ([employer] Verio Meter) To check blood glucose once daily budesonide-formoterol 160-4.5 mcg/actuation (Symbicort) 2 puffs PO BID cholecalciferol (vitamin D3) 25 mcg PO DAILY cilostazol 100 mg PO BID cyanocobalamin (vitamin B-12) (Vitamin B-12) 250 mcg PO DAILY dextromethorphan polistirex ER (Delsym 12 hour) 10 mL PO Q12H PRN enoxaparin (Lovenox) 70 mg See Protocol subcut Q12H 5 days ferrous sulfate (Feosol) 325 mg PO DAILY fluticasone propionate 50 mcg/actuation 2 sprays intranasal DAILY gabapentin 300 mg PO TID 90 days [garlic clove 1 dose PO NEEDED] ipratropium-albuterol 0.5 mg-3 mg(2.5 mg base)/3 mL 3 mL inhalation Q6H lancets ([employer] Delica Plus Lancet) To test bg daily lancets As directed metformin 500 mg PO DAILY metoprolol succinate ER 25 mg PO DAILY naloxone 4 mg/actuation (Narcan) 4 mg intranasal Q2M 1 day Ventolin HFA 90 mcg/actuation (albuterol sulfate) 2 puffs inhalation Q4-6H PRN NS walker (Ultra-Light Rollator misc) As directed, ambulate at all times with walker warfarin 2.5 mg See Protocol PO DAILY 90 days warfarin 5 mg See Protocol PO DAILY HPI Comments Details: Bao returns for follow-up. Previously seen at [facility]. Has aortic stenosis being monitored by echocardiogram. History of peripheral vascular disease and prior left fem-pop bypass and [place] [facility] [place]. No documented coronary disease. Multiple comorbidities. Overall, doing okay. No cardiac symptoms. 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, without long-term current use of insulin Effusion of right knee joint Contusion of right knee Hemarthrosis involving knee joint Left shoulder pain Appetite impaired Hearing difficulty Weight loss Cough Non-rheumatic aortic stenosis Chronic pain syndrome Postlaminectomy syndrome Diabetic polyneuropathy Gastric carcinoma Peripheral vascular disease Pneumonia Hyperlipidemia LDL goal <70 COPD (chronic obstructive pulmonary disease) Type 2 diabetes mellitus with hyperglycemia Vitamin B12 deficiency Bronchiectasis Moderate aortic stenosis Compression fracture of L1 lumbar vertebra Recurrent deep vein thrombosis (DVT) Peripheral vascular disease History of gastric cancer BPH (benign prostatic hyperplasia) COPD (chronic obstructive pulmonary disease) Joint pain Surgical History History of colonoscopy Amputation of toe of left foot History of gastrectomy Family History Father Diabetes Cancer Mother Diabetes Brother Lung cancer Social History Household Members: None Household Members Other:: lives alone son checks by daily Housing: Apartment Are you a primary healthcare financial analyst to a significant other at home: No Do you presently have visiting nurse or other home services: No Alcohol intake: former Year quit: 1970 Patient Tobacco Use Status: Never used Tobacco Tobacco use type: Cigarette e-Cigarette/Vaping Use: Never Used Second Hand Smoke Exposure: No service: No Current occupational status: retired Cognitive needs: Yes (walker/power chair) Hearing needs: No Vision needs: Yes (reading) Review of Systems Const Denies weakness ENT Denies dizziness Card Denies chest pain, Denies chest pain with activity, Denies syncope, Denies rapid heart rate, Denies pedal edema, Denies edema, Denies leg edema, Denies lightheadedness, Reports palpitations, Denies dyspnea, Denies dyspnea on exertion and Denies orthopnea Resp Reports cough, Denies dyspnea and Denies dyspnea on exertion GI Denies hematochezia and Denies change in stool character Musc Denies abnormal gait, Denies muscle cramps, Denies muscle weakness, Denies numbness, Denies radiating pain into limb and Denies tingling Neuro Denies Abnormal speech present, Denies abnormal gait, Denies dizziness, Denies syncope, Denies numbness, Denies tingling and Denies weakness Endo Reports palpitations Physical Exam Vital Signs: Last Vital Signs Pulse 74 02/28/25 14:32 BP 120/60 02/28/25 14:32 BMI result Body Mass Index 25.0 Const General: comfortable and no acute distress Orientation/consciousness: patient oriented x3 HEENT Other: Unremarkable Head: Yes normal to inspection Neck Neck: Yes normal visual inspection Chest Chest palpation & inspection: normal inspection of the chest Resp Auscultation: clear to auscultation bilaterally Cardio Palpation: normal PMI Heart sounds: S1 normal heart sound present, S2 normal heart sound present, no gallops, Murmur heart sound present systolic III/ and at the right sternal border and no rubs GI Palpation (GI): Soft to palpation Back/Spine/Pelvis Other: unremarkable Skin General skin exam: no rashes or lesions noted Neuro General: patient oriented x3 Speech: No Abnormal speech present Extrem General: Yes normal to inspection Psych Mental Status: mental status grossly normal Assessment & Plan Assessment & Plan (1) Non-rheumatic aortic stenosis: Code(s): I35.0 - Nonrheumatic aortic (valve) stenosis Category: Medical (2) Mitral annular calcification: Code(s): I34.81 - Nonrheumatic mitral (valve) annulus calcification Category: Medical (3) Ascending aorta dilatation: Comment: May 2024 4.2 cm Code(s): I77.810 - Thoracic aortic ectasia Category: Medical Plan In the most recent echocardiogram, mean gradient across aortic valve was 36 mm Hg with a valve area of 1.1 cm2. Suggestive of moderate aortic stenosis. Mild mitral annular calcification/possible stenosis. Preserved LVEF at 59%. Ascending aortic size 4 cm. With regard to the aortic stenosis, we will repeat study in 6 months. Eventually, possible TAVR candidate. With regard to the mitral valve, no specific implications and we will need to monitor this by echocardiogram. Ascending aortic size is not of any significance at this time and again monitoring only. Otherwise, mainly aggressive risk factor modification as he has got many comorbidities as well as vascular disease. No absolute need for ischemia workup in the absence of angina but he will need catheterization anyway before future TAVR. Discussion Notes: I discussed the patient's heart valve condition, explaining that one valve is not opening well, but is not yet severe enough to require intervention. I informed him that we will continue to monitor the condition, and a future valve replacement procedure through the groin might be an option in 1-2 years if it worsens. We will repeat the ultrasound in 6 months, and I will see him back for a follow-up visit at that time. If any symptoms like chest pain, shortness of breath, feeling dizzy or passing out, to seek emergency help. Patient was informed and verbally consented to the use of an ambient scribe for clinic note documentation during this visit. Orders: Orders CA echo transthoracic complete 6 Months I35.0 - Nonrheumatic aortic (valve) s tenosis Patient Instructions: - Your heart valve condition is stable and does not need any new treatment at this time. - We will check your heart again with an ultrasound in 6 months. Coding Level of Care Code Est Pt Level 4 (86767) Add On Problem Visit Only Diagnoses Non-rheumatic aortic stenosis I35.0 Mitral annular calcification I34.81 Ascending aorta dilatation I77.810
== END 2025-02-28 14:53 | disposition home or self-care (01) ==
LOC: HO.HCS 14:30
PROVIDERS: PCP Internal Medicine; Visit Provider Internal Medicine
DX: I35.0 Nonrheumatic aortic (valve) stenosis (principal); I34.81 Nonrheumatic mitral (valve) annulus calcification; I77.810 Thoracic aortic ectasia
CPT/HCPCS: 99214; G2211

== ENCOUNTER → 2025-02-28 14:30 | Outpatient (BNVA) | payer MEDICARE, MEDICAID, SELFPAY | PROVIDERS: PCP Internal Medicine; Visit Provider Internal Medicine | DX: I35.0 Nonrheumatic aortic (valve) stenosis (principal); I34.81 Nonrheumatic mitral (valve) annulus calcification; I77.810 Thoracic aortic ectasia | CPT/HCPCS: 99212 ==

== ENCOUNTER 2025-03-06 13:36 | Outpatient (AMB) | payer MEDICARE, MEDICAID, SELFPAY ==
[2025-03-06 13:48] LABS: Prothrombin Time Whole Bld POC 21.8 sec (11.1-13.5); ~PT, ~INR - Anti Coag Clinic 1.8 (0.9-1.1)
--- NOTE | 2025-03-06 13:51 | MHC.OFFVISCO ---
Intake Intake Visit Reasons: Anticoagulation Allergies doxycycline Allergy (Intermediate, Verified 03/06/25 13:44) Nausea and Vomiting Medication List - Last Reconciled 03/06/25 by Fouzia Mcginnis RN [(Ultra-Light Rollator misc As directed] acetaminophen ER (Tylenol Arthritis Pain) 650 mg PO Q8H 30 days amlodipine 10 mg PO DAILY ascorbic acid (vitamin C) 1 g PO DAILY atorvastatin 40 mg PO DAILY blood pressure monitor (Blood Pressure Kit) As directed blood sugar diagnostic ([employer] Verio test strips) one time daily blood-glucose meter ([employer] Verio Meter) To check blood glucose once daily budesonide-formoterol 160-4.5 mcg/actuation (Symbicort) 2 puffs PO BID cholecalciferol (vitamin D3) 25 mcg PO DAILY cilostazol 100 mg PO BID cyanocobalamin (vitamin B-12) (Vitamin B-12) 250 mcg PO DAILY dextromethorphan polistirex ER (Delsym 12 hour) 10 mL PO Q12H PRN enoxaparin (Lovenox) 70 mg See Protocol subcut Q12H 5 days ferrous sulfate (Feosol) 325 mg PO DAILY fluticasone propionate 50 mcg/actuation 2 sprays intranasal DAILY gabapentin 300 mg PO TID 90 days [garlic clove 1 dose PO NEEDED] ipratropium-albuterol 0.5 mg-3 mg(2.5 mg base)/3 mL 3 mL inhalation Q6H lancets ([employer] Delica Plus Lancet) To test bg daily lancets As directed metformin 500 mg PO DAILY metoprolol succinate ER 25 mg PO DAILY naloxone 4 mg/actuation (Narcan) 4 mg intranasal Q2M 1 day Ventolin HFA 90 mcg/actuation (albuterol sulfate) 2 puffs inhalation Q4-6H PRN NS walker (Ultra-Light Rollator misc) As directed, ambulate at all times with walker warfarin 2.5 mg See Protocol PO DAILY 90 days warfarin 5 mg See Protocol PO DAILY Nursing Note INR: 1.8 out of therapeutic range of 2-3 Medications and supplements reviewed Patient status: well, no changes Medications or supplements: no changes Diet: usual diet Denies any signs and symptoms of bleeding or clotting or unusual bruising Bleeding, bruising, clotting discussed Nutritional guidance given: to avoid greens X 2 days Dose: increase today's dose from 2.5mg to 5mg then resume usual dose of 5mg X 4 days and 2.5mg X 3 days (M/W/F) F/U INR Date: 2 weeks?? Patient and son verbalizing understanding of instructions with read back given. Anti-Coag Initial Assessment Social Hx Patient Tobacco Use Status: Never used Tobacco Tobacco use type: Cigarette alcohol intake: former Alcohol intake frequency: does not drink Coding Level of Care Code Est Patient Level 1 Diagnoses Current use of anticoagulant therapy Z79.01 Results AMB INR Fingerstick AMB INR Fingerstick 1.8 Last Edit by Fouzia Mcginnis RN on 03/06/25 13:50 interface delay Assessment & Plan Assessment & Plan (1) Current use of anticoagulant therapy: Code(s): Z79.01 - skilled nursing (current) 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
== END 2025-03-06 13:53 | disposition home or self-care (01) ==
LOC: HO.ACS 13:36
PROVIDERS: PCP Internal Medicine; Visit Provider Internal Medicine Medical Oncology
DX: Z79.01 Long term (current) use of anticoagulants (principal)

== ENCOUNTER → 2025-03-06 13:36 | Outpatient (BNVA) | payer MEDICARE, MEDICAID, SELFPAY | PROVIDERS: PCP Internal Medicine; Visit Provider Internal Medicine Medical Oncology | DX: I82.5Z3 Chronic embolism and thrombosis of unspecified deep veins of distal lower extremity, bilateral (principal); Z51.81 Encounter for therapeutic drug level monitoring; Z79.01 Long term (current) use of anticoagulants | CPT/HCPCS: 85610; 99211 ==